=== PATIENT | female | born 1965 | race Caucasian/White ===

== ENCOUNTER 2017-04-01 21:57 | Observation (INO) | payer OTHER ==
[~2017-04-01] VITALS: Ht 165.1 cm; Wt 95.2 kg
[~2017-04-01 21:57] MED LIST: ALBUAER19 INH; ALLO100T PO; ASPI81TA28 PO; CHOL135C6 PO; GLIM2TAB2 PO; HYDR-5688 PO; LEVO25TA5 PO; METF1000 PO; SALM50AE2 INH
[2017-04-01] MEDS ORDERED: ASPIRIN 81 MG CHEW PO STA (22:24)
[2017-04-01] MEDS: NITROGLYCERIN 0.4 MG SL PER TAB CHARGE SL PRN ×3 (22:30→22:44)
--- NOTE | 2017-04-01 22:34 | EMERGENCY ROOM VISIT NOTE ---
History Report prepared by Mary: Raquel Osman Under the Supervision of: Dr. Willa Vázquez M.D. First contact with patient: 22:15 Chief Complaint: CHEST PAIN Stated Complaint: CHEST PAIN, PAIN IN L LOWER SHOULDER BLADE, NAUSEA History of Present Illness The patient is a 51 year old female who presents to the Emergency Room with complaints of persistent left sided chest pain that began this evening. She currently rates her discomfort as an 8/10 in severity. The patient reports that she developed chest pain that radiated into her left arm. She denies being a smoker. 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 She reports that she woke up today and began going about her normal routine and states that she noticed the pain. The patient states that the pain progressively worsened and tried resting , but states that the pain persisted. She denies any history of acid reflux but does report a history of diabetes. The patient states that she ate pasta and chicken for dinner. She states that she takes 81 mg of aspirin each morning. The patient reports a family history of heart disease, but denies any personal history of heart disease. She additionally associates nausea with her symptoms today, but denies any vomiting. The patient reports a normal bowel movement this morning. She states that she still has her gallbladder. The patient reports that her blood pressure typically runs 120/70 mmHg. Source of History: patient Onset: this evening Position: chest (left) Symptom Intensity: 8/10 Quality: other (radiating) Timing: other (persistent) Associated Symptoms: + nausea, No vomiting Note: Associated Symptoms: left arm pain Review of Systems See HPI for pertinent positives & negatives. A total of 10 systems reviewed and were otherwise negative. Past Medical & Surgical Medical Problems: (1) Diabetes (2) Hysterectomy (3) Kidney stone Family History Diabetes mellitus Heart disease Hypertension Social History Smoking Status: Never Smoker Smokeless Tobacco Use: No Alcohol Use: none Marital Status: Housing Status: lives with family Occupation Status: employed Current/Historical Medications Scheduled Allopurinol (Zyloprim), 100 MG PO QAM Aspirin (Aspirin Ec), 81 MG PO QAM Choline Fenofibrate (Trilipix), 135 MG PO QAM Fluticasone Propionate (Flovent Hfa), 2 PUFFS INH BID Glimepiride (Glimepiride), 4 MG PO BID Levothyroxine Sodium (Levothyroxine Sodium), 1 TAB PO QAM Metformin Hcl (Glucophage), 1,000 MG PO BID Scheduled PRN Albuterol Hfa (Ventolin Hfa), 2 PUFFS INH Q6H PRN for SOB/Wheezing Allergies Coded Allergies: Meperidine (Verified Allergy, Unknown, HIVES, 04/01/17) Penicillins (Verified Allergy, Unknown, UNKNOWN - "COULDN'T USE MY ARM AFTER SHOT", 04/01/17) Physical Exam Vital Signs Date Time Temp Pulse Resp B/P (MAP) Pulse Ox O2 Delivery O2 Flow Rate FiO2 04/01/17 23:00 79 18 120/76 98 Room Air 04/01/17 22:44 99 Room Air 04/01/17 22:20 90 04/01/17 22:00 36.9 64 18 148/88 97 Room Air Physical Exam Vital signs reviewed. General: Well-appearing female, in no significant distress. HEENT: No scleral icterus, PERRLA, neck supple. Atraumatic. Cardiovascular: Regular rate and rhythm, no extra sounds. Pulmonary: Clear to auscultation bilaterally, normal work of breathing. Abdomen:Obese soft, nontender, nondistended, positive bowel sounds. Musculoskeletal: Atraumatic, no peripheral edema. Neurologic: Patient awake alert and oriented x 3, full strength in all 4 extremities. Cranial nerves 2 through 12 grossly intact. Skin: Warm, dry, no rash Medical Decision & Procedures ER Provider Diagnostic Interpretation: X-ray results as stated below per interpretation by me and the radiologist: CHEST ONE VIEW PORTABLE CLINICAL HISTORY: Chest pain. COMPARISON STUDY: Chest radiograph June 24, 2013. FINDINGS: Slight elevation of the right hemidiaphragm is unchanged. There is no pneumothorax or pleural effusion. Cardiac size is normal. Mediastinal contours are normal. There is no evidence of pulmonary edema. There is no consolidation. IMPRESSION: No acute cardiopulmonary findings. Electronically signed by: Doron Gong M.D. 04/01/2017 10:48 PM Dictated Date/Time: 04/01/2017 10:47 PM Laboratory Results 04/01/17 22:40 Red Blood Count 4.21, Mean Corpuscular Volume 82.2, Mean Corpuscular Hemoglobin 26.8, Mean Corpuscular Hemoglobin Concent 32.7, Mean Platelet Volume 10.0, Neutrophils (%) (Auto) 51.1, Lymphocytes (%) (Auto) 38.8, Monocytes (%) (Auto) 5.9, Eosinophils (%) (Auto) 3.6, Basophils (%) (Auto) 0.4, Neutrophils # (Auto) 2.84, Lymphocytes # (Auto) 2.16, Monocytes # (Auto) 0.33, Eosinophils # (Auto) 0.20, Basophils # (Auto) 0.02 04/01/17 22:40 Test 04/01/17 22:40 04/01/17 22:49 White Blood Count 5.56 K/uL (4.8-10.8) Red Blood Count 4.21 M/uL (4.2-5.4) Hemoglobin 11.3 g/dL (12.0-16.0) Hematocrit 34.6 % (37-47) Mean Corpuscular Volume 82.2 fL (80-100) Mean Corpuscular Hemoglobin 26.8 pg (25-34) Mean Corpuscular Hemoglobin Concent 32.7 g/dl (32-36) Platelet Count 199 K/uL (130-400) Mean Platelet Volume 10.0 fL (7.4-10.4) Neutrophils (%) (Auto) 51.1 % Lymphocytes (%) (Auto) 38.8 % Monocytes (%) (Auto) 5.9 % Eosinophils (%) (Auto) 3.6 % Basophils (%) (Auto) 0.4 % Neutrophils # (Auto) 2.84 K/uL (1.4-6.5) Lymphocytes # (Auto) 2.16 K/uL (1.2-3.4) Monocytes # (Auto) 0.33 K/uL (0.11-0.59) Eosinophils # (Auto) 0.20 K/uL (0-0.5) Basophils # (Auto) 0.02 K/uL (0-0.2) RDW Standard Deviation 40.9 fL (36.4-46.3) RDW Coefficient of Variation 13.6 % (11.5-14.5) Immature Granulocyte % (Auto) 0.2 % Immature Granulocyte # (Auto) 0.01 K/uL (0.00-0.02) Anion Gap 13.0 mmol/L (3-11) Est Creatinine Clear Calc Drug Dose 68.1 ml/min Estimated GFR () 66.8 Estimated GFR (Non- 57.7 BUN/Creatinine Ratio 12.1 (10-20) Calcium Level 8.8 mg/dl (8.5-10.1) Total Bilirubin 0.2 mg/dl (0.2-1) Direct Bilirubin < 0.1 mg/dl (0-0.2) Aspartate Amino Transf (AST/SGOT) 24 U/L (15-37) Alanine Aminotransferase (ALT/SGPT) 36 U/L (12-78) Alkaline Phosphatase 66 U/L (45-117) Total Creatine Kinase 49 U/L (26-192) Creatine Kinase MB 0.8 ng/ml (0.5-3.6) Creatine Kinase MB Ratio 1.6 (0-3.0) Total Protein 6.8 gm/dl (6.4-8.2) Albumin 3.3 gm/dl (3.4-5.0) Beta-Hydroxybutyric Acid 1.26 mg/dL (0.2-2.81) Bedside Troponin I < 0.030 ng/ml (0-0.045) Laboratory results per my review. Medications Administered Medications (Trade) Dose Ordered Sig/Berhane Route Start Time Stop Time Status Last Admin Dose Admin Aspirin (Aspirin Chew) 243 mg NOW STAT PO 04/01/17 22:24 04/01/17 22:26 DC 04/01/17 22:30 243 MG Nitroglycerin (Nitrostat Tab) 0.4 mg PRN PRN SL 04/01/17 22:30 05/01/17 22:29 04/01/17 22:44 0.4 MG Insulin Human Regular (novoLIN-R U-100 PER UNIT) 10 units NOW STAT SC 04/01/17 23:24 04/01/17 23:25 DC 04/02/17 00:20 10 UNITS ECG Indication: chest pain Rate (beats per minute): 78 Rhythm: normal sinus Findings: no acute ischemic change, no ectopy ED Course 3: Past medical records reviewed. The patient was evaluated in room B12B. A complete history and physical examination was performed. 4: Ordered Aspirin 243 mg PO. 0: Ordered Nitroglycerin 0.4 mg SL. 4: Ordered Insulin Human Regular 10 units SC 2326: I reevaluated the patient and she is resting comfortably. I discussed the exam findings with her and I discussed the treatment plan. She verbalized complete understanding and agreement. She is going to be evaluated for further treatment. []: I discussed the patients case with Valeria Velazquez. He will evaluate the patient for further treatment. Medical Decision Differential diagnoses includes acute coronary syndrome, pulmonary embolus, aortic dissection, musculoskeletal pain, pneumonia, pleural effusion, pneumothorax, gastritis, peptic ulcer disease. Medication Reconciliation: I attest that I have personally reviewed the patient' s current medication list. Blood Pressure Screening: Patient was found to have normal blood pressure on screening and does not require follow-up. This patient was evaluated and appeared to be in no significant distress. IV access was obtained and laboratory work was drawn. 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 EKG reveals no evidence of acute ischemia. Laboratory work reveals negative cardiac enzymes. The patient was feeling improved after aspirin and nitroglycerin. Patient's blood sugar is found to be 374. She was given 10 units of subcutaneous regular insulin. Given her family history of heart disease, her uncontrolled diabetes and chest pain, she will be evaluated by the hospitalist service for further management. She and her are aware of the plan and agree. Consults Time Called: [id number] Consulting Physician: Valeria Velazquez Returned Call: [phone] I discussed the patients case with Valeria Velazquez. He will evaluate the patient for further treatment. Impression Primary Impression: Chest pain radiating to upper extremity Additional Impression: Hyperglycemia Scribe Attestation The scribe's documentation has been prepared under my direction and personally reviewed by me in its entirety. I confirm that the note above accurately reflects all work, treatment, procedures, and medical decision making performed by me. Departure Information Dispostion Being Evaluated By Hospitalist Referrals Sarbjit Carballo M.D. (PCP) Problem Qualifiers
--- NOTE | 2017-04-01 22:49 | DIAGNOSTIC IMAGING REPORT ---
CHEST ONE VIEW PORTABLE CLINICAL HISTORY: Chest pain. COMPARISON STUDY: Chest radiograph June 24, 2013. FINDINGS: Slight elevation of the right hemidiaphragm is unchanged. There is no pneumothorax or pleural effusion. Cardiac size is normal. Mediastinal contours are normal. There is no evidence of pulmonary edema. There is no consolidation. IMPRESSION: No acute cardiopulmonary findings. Electronically signed by: Doron Gong M.D. 04/01/2017 10:48 PM Dictated Date/Time: 04/01/2017 10:47 PM
[2017-04-01 22:56] LABS: BASO % 0.4 %; BASO ABS # 0.02 K/uL (0-0.2); COMPLETE YES; EOS % 3.6 %; HEMATOCRIT 34.6 % (37-47); IG% 0.2 %; LYMPH % 38.8 %; LYMPH ABS # 2.16 K/uL (1.2-3.4); MEAN CELL VOLUME 82.2 fL (80-100); MEAN CORPUSCULAR HEMOGLOBIN 26.8 pg (25-34); MEAN CORPUSCULAR HGB CONC 32.7 g/dl (32-36); MONO % 5.9 %; NEUT % 51.1 %; PLATELET COUNT 199 K/uL (130-400); RED BLOOD COUNT 4.21 M/uL (4.2-5.4); WHITE BLOOD COUNT 5.56 K/uL (4.8-10.8)
[2017-04-01] MEDS ORDERED: FLVHFA110 INH (23:07)
[2017-04-01] MEDS ORDERED: VNTHFA/IN INH (23:07)
[2017-04-01 23:12] LABS: CALCIUM 8.8 mg/dl (8.5-10.1)
[2017-04-01 23:18] LABS: ALKALINE PHOSPHATASE 66 U/L (45-117); ALT/SGPT 36 U/L (12-78); AST/SGOT 24 U/L (15-37); BLOOD UREA NITROGEN 13 mg/dl (7-18); BUN/CREATININE RATIO 12.1 (10-20); CARBON DIOXIDE 24 mmol/L (21-32); CHLORIDE 104 mmol/L (98-107); CKMB/CK RATIO 1.6 (0-3.0); GLUCOSE 374 mg/dl (70-99); POTASSIUM 3.8 mmol/L (3.5-5.1); SODIUM 141 mmol/L (136-145)
[2017-04-01] MEDS ORDERED: NovoLIN-R INSULIN PER UNIT CHARGE SC STA (23:24)
[2017-04-01 23:30] LABS: BETA-HYDROXYBUTYRATE 1.26 mg/dL (0.2-2.81)
[2017-04-02] VITALS (10 sets, daily range): BP systolic 115–135; BP diastolic 70–83; PULSE 59–89; TEMP 36.6–37.1; O2SAT 93–98; Ht 165.1 cm; Wt 95.2 kg
[2017-04-02] MEDS ORDERED: GLUCOSE 10 TABS/TUBE PO PRN (00:30)
[2017-04-02] MEDS ORDERED: POLYETHYLENE (MIRALAX) 17 GM PACK PO PRN (00:30)
[2017-04-02] MEDS ORDERED: NITROGLYCERIN 0.4 MG SL PER TAB CHARGE SL PRN (00:30)
[2017-04-02] MEDS ORDERED: ONDANSETRON INJ 2 MG/ML 2 ML VIAL IV PRN (00:30)
[2017-04-02] MEDS ORDERED: DEXTROSE 50% 50 ML SYR IV PRN (00:30)
[2017-04-02] MEDS ORDERED: ALBUTEROL HFA 8 GM INHALER INH PRN (00:30)
[2017-04-02] MEDS ORDERED: ALUMINUM/MAGNESIUM/SIMETH (MAALOX MAX) 30 ML UDC PO PRN (00:30)
[2017-04-02] MEDS ORDERED: GLUCOSE 40% GEL 15 GM TUBE PO PRN (00:30)
[2017-04-02] MEDS ORDERED: ACETAMINOPHEN 325 MG TAB PO PRN (00:30)
[2017-04-02] MEDS ORDERED: GLUCAGON FOR INJ 1 MG VIAL SQ PRN (00:30)
[2017-04-02] MEDS ORDERED: MAGNESIUM HYDROXIDE SUSP 30 ML UDC PO PRN (00:30)
[2017-04-02] MEDS ORDERED: IV FLUIDS COMPLETED PRN (00:45)
[2017-04-02] MEDS: SODIUM CHLORIDE 0.9% 1000ML 1,000 ML IV SCH ×3 (02:13→22:01)
--- NOTE | 2017-04-02 04:26 | History and Physical ---
History & Physical Date & Time of Service: Apr 02, 2017 at 04:04 Chief Complaint: Chest Pain Radiating To Upper Extremity, Primary Care Physician: Sarbjit Carballo M.D. History of Present Illness Source: patient, family, clinic records, hospital records This is a 51 year old female with a PMH of significantly uncontrolled DM2, HTN, HLD, hypothyroidism presents with L sided chest pain radiating to her L shoulder and between her shoulder blades. States that the pain began in the afternoon of 04/01 - and was severe enough that it worried her to come to the ER. Denies shortness of breath, no fevers/chills, no nausea/vomiting/diarrhea; has had this before and this has gone away on its own. This time, the pain persisted. Currently, pain free after nitro. Past Medical/Surgical History Medical Problems: (1) Diabetes Status: Chronic (2) Hysterectomy Status: Resolved (3) Kidney stone Status: Resolved Family History Diabetes mellitus Heart disease Hypertension Social History Smoking Status: Never Smoker Smokeless Tobacco Use: No Marital Status: Housing status: lives with family Occupational Status: employed Multi-Drug Resistant Organisms History of MDRO: No Allergies Coded Allergies: Meperidine (Verified Allergy, Unknown, HIVES, 04/01/17) Penicillins (Verified Allergy, Unknown, UNKNOWN - "COULDN'T USE MY ARM AFTER SHOT", 04/01/17) Home Medications Scheduled Allopurinol (Zyloprim), 100 MG PO QAM Aspirin (Aspirin Ec), 81 MG PO QAM Choline Fenofibrate (Trilipix), 135 MG PO QAM Fluticasone Propionate (Flovent Hfa), 2 PUFFS INH BID Glimepiride (Glimepiride), 4 MG PO BID Levothyroxine Sodium (Levothyroxine Sodium), 1 TAB PO QAM Metformin Hcl (Glucophage), 1,000 MG PO BID Scheduled PRN Albuterol Hfa (Ventolin Hfa), 2 PUFFS INH Q6H PRN for SOB/Wheezing Review of Systems Constitutional: No fever, No chills Respiratory: No cough, No sputum, No wheezing, No shortness of breath, No dyspnea on exertion Cardiovascular: + chest pain, No orthopnea, No edema, No palpitations Abdomen: No pain, No nausea, No vomiting, No diarrhea, No constipation, No GI bleeding Musculoskeletal: No joint pain, No muscle pain Genitourinary - Female: No dysuria, No urinary frequency, No urinary urgency Neurologic: No weakness, No numbness/tingling, No vertigo, No balance problems Psychiatric: No depression symptoms, No anxiety, No insomnia Endocrine: No fatigue Hematologic / Lymphatic: No abnormal bleeding/bruising Integumentary: No rash Allergic / Immunologic: No environmental allergies, No seasonal allergies Physical Exam Vital Signs Date Time Temp Pulse Resp B/P (MAP) Pulse Ox O2 Delivery O2 Flow Rate FiO2 04/02/17 02:12 36.7 66 20 129/78 (95) 97 Room Air 04/02/17 01:45 36.7 66 20 129/78 97 Room Air 04/02/17 01:19 74 118/67 97 Room Air 04/02/17 00:32 73 18 129/78 96 Room Air 04/01/17 23:00 79 18 120/76 98 Room Air 04/01/17 22:44 99 Room Air 04/01/17 22:20 90 04/01/17 22:00 36.9 64 18 148/88 97 Room Air General Appearance: no apparent distress, + obese Head: normocephalic, atraumatic Eyes: normal inspection ENT: hearing grossly normal Neck: supple Respiratory/Chest: chest non-tender, lungs clear, normal breath sounds, no respiratory distress, no accessory muscle use Cardiovascular: regular rate, rhythm, no edema, no gallop, no JVD, no murmur, normal peripheral pulses Abdomen/GI: normal bowel sounds, non tender, soft Back: no CVA tenderness, no muscle spasm Extremities/Musculoskelatal: normal capillary refill, no pedal edema Neurologic/Psych: no motor/sensory deficits, alert, normal reflexes Skin: normal color Lymphatic: no adenopathy Diagnostics Laboratory Results Results Past 24 Hours Test 04/01/17 22:40 04/01/17 22:49 04/02/17 01:04 04/02/17 03:47 Range/Units White Blood Count 5.56 4.8-10.8 K/uL Red Blood Count 4.21 4.2-5.4 M/uL Hemoglobin 11.3 12.0-16.0 g/dL Hematocrit 34.6 37-47 % Mean Corpuscular Volume 82.2 80-100 fL Mean Corpuscular Hemoglobin 26.8 25-34 pg Mean Corpuscular Hemoglobin Concent 32.7 32-36 g/dl Platelet Count 199 130-400 K/uL Mean Platelet Volume 10.0 7.4-10.4 fL Neutrophils (%) (Auto) 51.1 % Lymphocytes (%) (Auto) 38.8 % Monocytes (%) (Auto) 5.9 % Eosinophils (%) (Auto) 3.6 % Basophils (%) (Auto) 0.4 % Neutrophils # (Auto) 2.84 1.4-6.5 K/uL Lymphocytes # (Auto) 2.16 1.2-3.4 K/uL Monocytes # (Auto) 0.33 0.11-0.59 K/uL Eosinophils # (Auto) 0.20 0-0.5 K/uL Basophils # (Auto) 0.02 0-0.2 K/uL RDW Standard Deviation 40.9 36.4-46.3 fL RDW Coefficient of Variation 13.6 11.5-14.5 % Immature Granulocyte % (Auto) 0.2 % Immature Granulocyte # (Auto) 0.01 0.00-0.02 K/uL Sodium Level 141 136-145 mmol/L Potassium Level 3.8 3.5-5.1 mmol/L Chloride Level 104 98-107 mmol/L Carbon Dioxide Level 24 21-32 mmol/L Anion Gap 13.0 3-11 mmol/L Blood Urea Nitrogen 13 7-18 mg/dl Creatinine 1.10 0.60-1.20 mg/dl Est Creatinine Clear Calc Drug Dose 68.1 ml/min Estimated GFR () 66.8 Estimated GFR (Non- 57.7 BUN/Creatinine Ratio 12.1 10-20 Random Glucose 374 70-99 mg/dl Calcium Level 8.8 8.5-10.1 mg/dl Total Bilirubin 0.2 0.2-1 mg/dl Direct Bilirubin < 0.1 0-0.2 mg/dl Aspartate Amino Transf (AST/SGOT) 24 15-37 U/L Alanine Aminotransferase (ALT/SGPT) 36 12-78 U/L Alkaline Phosphatase 66 45-117 U/L Total Creatine Kinase 49 26-192 U/L Creatine Kinase MB 0.8 0.5-3.6 ng/ml Creatine Kinase MB Ratio 1.6 0-3.0 Total Protein 6.8 6.4-8.2 gm/dl Albumin 3.3 3.4-5.0 gm/dl Beta-Hydroxybutyric Acid 1.26 0.2-2.81 mg/dL Bedside Troponin I < 0.030 0-0.045 ng/ml Bedside Glucose 298 70-90 mg/dl CXR normal Normal EKG Impression Assessment and Plan This is a 51 year old female with a PMH of significantly uncontrolled DM2, HTN, HLD, hypothyroidism presents with L sided chest pain Chest Pain r/o ACS risk factors: uncontrolled DM2 EKG = NSR initial cardiac enzyme negative trend enzymes, repeat EKG in AM, echo monitor in tele nitro PRN for pain aspirin, statin cardiology consultation for possible stress testing Uncontrolled DM2 last Ha1c > 12% patient has not started insulin therapy and is only on oral medications BSGs > 300 on presentation should be discharged on Lantus or Levemir at the very least - will need convincing continue statin started on low dose lisinopril - should be discharged on an JESUS-I Hypothyroidism continue Synthroid DVT ppx subq heparin FULL CODE Advanced Directives Existing Living Will: No Existing Power of Numberer And Wirer: No VTE Prophylaxis VTE Risk Assessment Done? Y/N: Yes Risk Level: Moderate
[2017-04-02] MEDS: LEVOTHYROXINE 25 MCG TAB PO SCH (06:20)
[2017-04-02 06:55] LABS: HEMATOCRIT 34.3 % (37-47); MEAN CELL VOLUME 83.7 fL (80-100); MEAN CORPUSCULAR HEMOGLOBIN 27.1 pg (25-34); MEAN CORPUSCULAR HGB CONC 32.4 g/dl (32-36); MEAN PLATELET VOLUME 9.7 fL (7.4-10.4); PLATELET COUNT 180 K/uL (130-400); WHITE BLOOD COUNT 6.05 K/uL (4.8-10.8)
[2017-04-02 07:29] LABS: BLOOD UREA NITROGEN 16 mg/dl (7-18); BUN/CREATININE RATIO 19.6 (10-20); CALCIUM 8.4 mg/dl (8.5-10.1); CARBON DIOXIDE 27 mmol/L (21-32); CHLORIDE 109 mmol/L (98-107); CREATININE 0.82 mg/dl (0.60-1.20); GLUCOSE 134 mg/dl (70-99); POTASSIUM 3.8 mmol/L (3.5-5.1); SODIUM 145 mmol/L (136-145)
[2017-04-02 07:34] LABS: CKMB/CK RATIO 1.8 (0-3.0)
[2017-04-02 08:01] LABS: ESTIMATED AVERAGE GLUCOSE 255 mg/dl; HA1C FLAG Normal (Normal)
[2017-04-02] MEDS: INSULIN ASPART 100 UNITS/ML 3 ML PEN SC SCH ×4 (08:06→20:45)
[2017-04-02] MEDS: ASPIRIN 81 MG ECTAB PO SCH (08:08)
[2017-04-02] MEDS: ATORVASTATIN 40 MG TAB PO SCH (08:08)
[2017-04-02] MEDS: FLUTICASONE HFA 110MCG INHALER INH SCH ×2 (08:08→20:42)
[2017-04-02] MEDS: LISINOPRIL 2.5 MG TAB PO SCH (08:12)
[2017-04-02] MEDS: INSULIN GLARGINE SOLOSTAR 100 UNITS/ML 3 ML PEN SC SCH ×2 (08:16→20:44)
[2017-04-02] MEDS ORDERED: PHARMACY GLYCEMIC MGMT CONSULT PRN (09:16)
[2017-04-02 09:44] LABS: PARTIAL THROMBOPLASTIN RATIO 0.9
--- NOTE | 2017-04-02 09:44 | Pharmacy Progress Note ---
Glycemic Control Intl Consult Date of Service Apr 02, 2017. Scope Glycemic Pharmacist consulted by Dr Avalos on 04/02/17 for glycemic control and to write orders per [facility] inpatient glycemic control protocol Objective Weight (Kilograms): 94.200 Accuchecks BSG (last 24hrs): Test 04/01/17 22:40 04/02/17 01:04 04/02/17 03:47 04/02/17 06:38 Random Glucose 374 mg/dl (70-99) 134 mg/dl (70-99) Bedside Glucose 298 mg/dl (70-90) 212 mg/dl (70-90) Test 04/02/17 07:27 Bedside Glucose 142 mg/dl (70-90) HbA1c Test 04/02/17 06:38 Hemoglobin A1c 10.5 % (4.5-5.6) H Recent Pertinent Medications Outpatient Anti-diabetic Regimen: * Amaryl 4mg PO BIDM * Metformin 1,000mg PO BIDM The patient is currently receiving: * Basal insulin: Lantus 10 units every 12 hours * Correctional Insulin: Novolog Correction per scale ACHS Goal Range: Low 140 mg/dL - High 180 mg/dL Correction Factor: 25 mg/dL/unit * Prandial insulin: Per carb ratio of 1 unit per 15 grams CHO consumed * Oral Agents: on hold for admission Assessment & Plan ASSESSMENT: * 51yo poorly controlled T2DM female. A1c is significantly elevated above goal based on patient age and co-morbidities. Goal A1c is below 7% * Pt NPO, oral antidiabetic agents on hold for admission. Provider initiated SQ basal bolus insulin regimen. * Current basal orders seem appropriated based on weight calculations, low stress, and NPO * Current bolus insulin parameters seem conservative based on weight calculations. Pt received 10 units of Regular insulin SQ for elevated GLU of 347. This correlates to CF of ~ 25 which brought BSG down nicely. Concern that CR of 15 may be inadequate once diet advanced. * ADA & AACE recommend a goal blood sugar range 140-180 mg/dl for the majority of critically ill & non-critically ill patients. However, more stringent targets may be selected in individual cases. Will lower goal range slightly based on age/co-morbidities. Keep it a little elevated since A1c is so high - pt may feel symptoms of hypo at otherwise normal BSGs. PLAN FOR INPATIENT GLYCEMIC CONTROL: * Hold outpatient oral diabetes medications * Basal insulin * Continue Lantus 10 units SQ BID * Bolus Insulin * NovoLog per scale ACHS or Q6hrs while NPO * Goal Range: Low 120 mg/dL - High 160 mg/dL * Correction Factor: 25 mg/dL/unit * Nutritional / Prandial insulin per carb ratio of 1 unit per 10 grams CHO consumed LOOKING AHEAD TO DISCHARGE: * A1c = 10.5 % on 04/02/17 * Pt specific goal A1c is BELOW 7% * A1c goal should be individualized based on risk of hypo/drug AE, disease duration, life expectancy, relevant co-morbidities, established vascular complication, patient attitude and expected treatment efforts, resources and support system. * A1c is greater than or equal to 10% --> pt will need metformin + combination injectable therapy (basal insulin + rapid acting insulin OR GLP1-RA) * Metformin has a long-standing evidence base for efficacy and safety, is inexpensive, and may reduce risk of cardiovascular events. 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 These recommendations are appropriate for inpatient admission only. Plan of care upon discharge will need to be reassessed to avoid potential outpatient hypo/hyperglycemia. Thank you.
--- NOTE | 2017-04-02 10:09 | Cardiology Consultation ---
Cardiology Consultation Date of Consultation: Apr 02, 2017 Requesting Physician: Tommy Attending Parts Delivery Driver: Sowmya (Maco Waters PA-C) History of Present Illness History of Present Illness: Mrs. Byers is a 51 year old female who is being seen at the request of Dr. Sanders. Reason for consultation is chest pain. Mrs. Byers presented to the [facility] ER on 04/01/2017 due to chest discomfort. She notes working nights, sleeping during the day. Yesterday she awoke around 5 PM and didn't feel right. She went back to bed, awaking around 7:30 PM with an 8 out of 10 squeezing substernal chest discomfort associated with left shoulder pain, left arm discomfort, shortness of breath, nausea, and feeling "hot then cold." She notes eating dinner then laying on the sofa. Notes getting a shower and feeling dizzy. She notes no prior cardiac history and denies having previously had chest pain or discomfort. Eventually her brought her to the ER where she was seen by Dr. Willa Vázquez M.D. Systolic blood pressure was elevated per patient, into the 170' s. EKG showed no acute changes. Initial cardiac enzymes were negative. Chest x- ray showed no acute cardiopulmonary findings. The patient notes receiving three sublingual nitroglycerin with gradual improvement in the discomfort after each nitroglycerine tablet. She has been chest pain free since admission. (Maco Waters PA-C) History Past Medical and Surgical History Uncontrolled type II diabetes mellitus Hypertension Dyslipidemia Obesity Fatty liver disease Hypothyroidism Asthma Gouty arthropathy DJD of the lumbar spine Nephrolithiasis, obstructing stone with right hydronephrosis in 2012. Ovarian cyst Ulva abscess Hyperkalemia with lisinopril Right rotator cuff repair Partial hysterectomy in 2001 Breast reduction Removal of a lipoma as a teenager Family History: Notable for diabetes mellitus in multiple family members. Father 's history is unknown. Mother with "complications from diabetes" at the age of 49. She had CHF and CAD. She has two brothers and one sister without cardiac issues. Social History: Nonsmoker. No smokeless tobacco. No alcohol. No illegal drug use. . Three children, four grandchildren, all without cardiac histories. 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 (Maco Waters PA-C) Review Of Systems General: Sore throat last week, cough productive of clear/cloudy mucous x 1 week. Denies fever or rigors. Head: No headache. No head trauma. Cardiovascular: See above. Denies prior cardiac history including CAD, CHF, arrhythmias, heart murmur, rheumatic fever, scarlet fever, or family history of sudden cardiac . WILLIAM. No orthopnea, PND, or edema. No syncope. Pulmonary: Asthma. No hemoptysis. Gastrointestinal: See above. Fatty liver. Skin: No rash. Musculoskeletal: See above. Neurological: Denies history of TIA, CVA, or seizures Complete review of systems is as stated above, negative, or noncontributory. (Maco Waters PA-C) Allergies Coded Allergies: Meperidine (Verified Allergy, Unknown, HIVES, 04/01/17) Penicillins (Verified Allergy, Unknown, UNKNOWN - "COULDN'T USE MY ARM AFTER SHOT", 04/01/17) Medications Reported Home Medications Medications Dose Route/Sig Max Daily Dose Days Date Category Flovent Hfa (Fluticasone Propionate) 120 Puffs/76975 Mcg Aero 2 Puffs INH BID 30 04/01/17 Reported Ventolin Hfa (Albuterol) 200 Puffs/84321 Mcg Aers 2 Puffs INH Q6H PRN 04/01/17 Reported Levothyroxine Sodium 25 Mcg Tab 1 Tab PO QAM 03/06/16 Reported Zyloprim (Allopurinol) 100 Mg Tab 100 Mg PO QAM 03/06/16 Reported Aspirin Ec (Aspirin) 81 Mg Tab 81 Mg PO QAM 03/06/16 Reported Glucophage (Metformin Hcl) 1,000 Mg Tab 1,000 Mg PO BID 06/21/13 Reported Glimepiride 2 Mg Tab 4 Mg PO BID 06/21/13 Reported Trilipix (Choline Fenofibrate) 135 Mg Cap 135 Mg PO QAM 06/21/13 Reported (Maco Waters PA-C) Physical Exam Vital Signs (Last 8hrs): Last 8 Hrs Date Time Temp Pulse Resp B/P (MAP) Pulse Ox O2 Delivery O2 Flow Rate FiO2 04/02/17 08:00 98 Room Air 04/02/17 07:17 36.8 77 16 119/75 (90) 98 04/02/17 04:18 36.7 67 20 116/73 (87) 96 Room Air 04/02/17 02:12 36.7 66 20 129/78 (95) 97 Room Air General Appearance: Alert and Oriented x3. NAD. Elevated BMI. Head: Normocephalic Atraumatic. Eyes: PER, EOMI, conjunctiva and sclera clear Neck: Supple. No carotid bruits. No JVD. Respiratory: Breath sounds clear to auscultation. No w/r/r. Cardiovascular: Somewhat distant heart sounds. RRR, 66 bpm. No murmurs, rubs, gallops. Abdomen:+BS. Soft. Nontender. Extremities: No edema. No clubbing. No cyanosis. Distal pulses 2/4 bilaterally. Neuro: No focal deficits. Psychiatric: Normal affect. (Maco Waters, KENDRA) Data Last 24 Hours Test 04/01/17 22:40 04/01/17 22:49 04/02/17 01:04 04/02/17 03:47 White Blood Count 5.56 K/uL Red Blood Count 4.21 M/uL Hemoglobin 11.3 g/dL Hematocrit 34.6 % Mean Corpuscular Volume 82.2 fL Mean Corpuscular Hemoglobin 26.8 pg Mean Corpuscular Hemoglobin Concent 32.7 g/dl Platelet Count 199 K/uL Mean Platelet Volume 10.0 fL Neutrophils (%) (Auto) 51.1 % Lymphocytes (%) (Auto) 38.8 % Monocytes (%) (Auto) 5.9 % Eosinophils (%) (Auto) 3.6 % Basophils (%) (Auto) 0.4 % Neutrophils # (Auto) 2.84 K/uL Lymphocytes # (Auto) 2.16 K/uL Monocytes # (Auto) 0.33 K/uL Eosinophils # (Auto) 0.20 K/uL Basophils # (Auto) 0.02 K/uL RDW Standard Deviation 40.9 fL RDW Coefficient of Variation 13.6 % Immature Granulocyte % (Auto) 0.2 % Immature Granulocyte # (Auto) 0.01 K/uL Sodium Level 141 mmol/L Potassium Level 3.8 mmol/L Chloride Level 104 mmol/L Carbon Dioxide Level 24 mmol/L Anion Gap 13.0 mmol/L Blood Urea Nitrogen 13 mg/dl Creatinine 1.10 mg/dl Est Creatinine Clear Calc Drug Dose 68.1 ml/min Estimated GFR () 66.8 Estimated GFR (Non- 57.7 BUN/Creatinine Ratio 12.1 Random Glucose 374 mg/dl Calcium Level 8.8 mg/dl Total Bilirubin 0.2 mg/dl Direct Bilirubin < 0.1 mg/dl Aspartate Amino Transf (AST/SGOT) 24 U/L Alanine Aminotransferase (ALT/SGPT) 36 U/L Alkaline Phosphatase 66 U/L Total Creatine Kinase 49 U/L Creatine Kinase MB 0.8 ng/ml Creatine Kinase MB Ratio 1.6 Total Protein 6.8 gm/dl Albumin 3.3 gm/dl Beta-Hydroxybutyric Acid 1.26 mg/dL Bedside Troponin I < 0.030 ng/ml Bedside Glucose 298 mg/dl 212 mg/dl Test 04/02/17 06:38 04/02/17 07:27 04/02/17 09:20 White Blood Count 6.05 K/uL Red Blood Count 4.10 M/uL Hemoglobin 11.1 g/dL Hematocrit 34.3 % Mean Corpuscular Volume 83.7 fL Mean Corpuscular Hemoglobin 27.1 pg Mean Corpuscular Hemoglobin Concent 32.4 g/dl RDW Standard Deviation 41.7 fL RDW Coefficient of Variation 13.8 % Platelet Count 180 K/uL Mean Platelet Volume 9.7 fL Sodium Level 145 mmol/L Potassium Level 3.8 mmol/L Chloride Level 109 mmol/L Carbon Dioxide Level 27 mmol/L Anion Gap 9.0 mmol/L Blood Urea Nitrogen 16 mg/dl Creatinine 0.82 mg/dl Est Creatinine Clear Calc Drug Dose 91.1 ml/min Estimated GFR () 95.4 Estimated GFR (Non- 82.3 BUN/Creatinine Ratio 19.6 Random Glucose 134 mg/dl Estimated Average Glucose 255 mg/dl Hemoglobin A1c 10.5 % Calcium Level 8.4 mg/dl Total Creatine Kinase 33 U/L Creatine Kinase MB 0.6 ng/ml Creatine Kinase MB Ratio 1.8 Troponin I < 0.015 ng/ml Bedside Glucose 142 mg/dl Prothrombin Time 11.0 SECONDS Prothromb Time International Ratio 1.0 Activated Partial Thromboplast Time 23.2 SECONDS Partial Thromboplastin Ratio 0.9 CXR: See above. EKG dated and timed 01-APR-2017 @ 22:10:08: Normal sinus rhythm at 78 bpm. Telemetry: Sinus/sinus tachycardia. No atrial or ventricular arrhythmias. No pauses. TTE: Pending. (Maco Waters PA-C) Assessment & Plan Chest pain. Atypical though with concerning characteristics and multiple cardiac risk factors (uncontrolled diabetes mellitus, hypertension, dyslipidemia, obesity, and family history). Initial EKG and cardiac enzymes negative. Repeat EKG and cardiac enzymes; await resting echocardiography. If OK -> stress echocardiography. Continue ASA and statin Risk factor and life style modification Hypertension Recommend losartan over lisinopril given past documented hyperkalemia with use of lisinopril. Dyslipidemia Continue statin Uncontrolled type II diabetes mellitus Noncompliant. As per hospitalist and PCP. (Maco Waters PA-C) Cardiology Attending Physician: Patient seen and examined at the bedside. No recurrent chest pain overnight. No dysrhythmia on telemetry. Troponins undetectable. Reports mild WILLIAM chronically. No exertional chest discomfort prior to admission. PE: VSS. GEN: NAD, AAOx3. Heart: Regular, Normal S1S2, No murmur. Lung: clear B/ L, No R/R/W. Ext: No edema. A/P: Agree with above PA-C, history, physical exam, assessment and plan. Cardiac risk factors and chest discomfort with atypical features. Will perform exercise stress echocardiography for further risk stratification. Eduin Deng DO, FACC Addendum: Exercise stress echo negative for inducible ischemia. Recommend medical management. No further cardiac testing at this time. (Carlo Deng DO)
[2017-04-02] MEDS: HEPARIN SOD 5000 UNIT/0.5 ML CARP SQ SCH ×2 (13:23→22:00)
[2017-04-02] MEDS ORDERED: COUGH DROP (SUGAR FREE) LOZ 24 LOZ/1 BOX ONE (13:25)
[2017-04-02] MEDS ORDERED: NURSING DECISION MEDICATION ORDER SCH (13:30)
[2017-04-02] MEDS ORDERED: COUGH DROP (SUGAR FREE) LOZ 24 LOZ/1 BOX PO PRN (13:45)
--- NOTE | 2017-04-02 15:22 | Progress Note ---
Internal Med Progress Note Date of Service: Apr 02, 2017. Provider Documentation: SUBJECTIVE: The patient was seen and examined Admitted with exertional chest pain Noted to have very high HbA1c Has been noncompliant OBJECTIVE: Vital Signs-as noted below Exam: General-No distress at rest Eyes-normal ENT-normal Neck-supple Lungs-clear to ausucltate bilaterally Heart-Regular,no murmur Abdomen-Benign,no masses,bowel sound present Extremities-Trace edema bilaterally Neuro-AAOx3 No focal neuro deficit Lab data as noted below. ASSESSMENT & PLAN: Exertional Chest Pain R/O ACS Risk factors: uncontrolled DM2 and Hyperlipidemia EKG = NSR and Serial Beulah are unremarkable Appreciate Cardiology input Negative Stress ECHO-medical Management Aspirin, statin Uncontrolled DM2 Last Ha1c > 12% Patient has not started insulin therapy and is only on oral medications BSGs > 300 on presentation SSI for now Pharmacy consult for Glycemic control Hypothyroidism Continue Synthroid DVT ppx subq heparin FULL CODE DISPOSITION Likely home in AM Vital Signs: Date Time Temp Pulse Resp B/P (MAP) Pulse Ox O2 Delivery O2 Flow Rate FiO2 04/02/17 14:55 36.6 59 18 119/70 (86) 93 04/02/17 12:06 37.1 89 18 127/83 (98) 96 04/02/17 12:00 96 Room Air 04/02/17 08:00 98 Room Air 04/02/17 07:17 36.8 77 16 119/75 (90) 98 04/02/17 04:18 36.7 67 20 116/73 (87) 96 Room Air 04/02/17 02:12 36.7 66 20 129/78 (95) 97 Room Air 04/02/17 01:45 36.7 66 20 129/78 97 Room Air 04/02/17 01:19 74 118/67 97 Room Air 04/02/17 00:32 73 18 129/78 96 Room Air 04/01/17 23:00 79 18 120/76 98 Room Air 04/01/17 22:44 99 Room Air 04/01/17 22:20 90 04/01/17 22:00 36.9 64 18 148/88 97 Room Air Lab Results: Results Past 24 Hours Test 04/01/17 22:40 04/01/17 22:49 04/02/17 01:04 04/02/17 03:47 Range/Units White Blood Count 5.56 4.8-10.8 K/uL Red Blood Count 4.21 4.2-5.4 M/uL Hemoglobin 11.3 12.0-16.0 g/dL Hematocrit 34.6 37-47 % Mean Corpuscular Volume 82.2 80-100 fL Mean Corpuscular Hemoglobin 26.8 25-34 pg Mean Corpuscular Hemoglobin Concent 32.7 32-36 g/dl Platelet Count 199 130-400 K/uL Mean Platelet Volume 10.0 7.4-10.4 fL Neutrophils (%) (Auto) 51.1 % Lymphocytes (%) (Auto) 38.8 % Monocytes (%) (Auto) 5.9 % Eosinophils (%) (Auto) 3.6 % Basophils (%) (Auto) 0.4 % Neutrophils # (Auto) 2.84 1.4-6.5 K/uL Lymphocytes # (Auto) 2.16 1.2-3.4 K/uL Monocytes # (Auto) 0.33 0.11-0.59 K/uL Eosinophils # (Auto) 0.20 0-0.5 K/uL Basophils # (Auto) 0.02 0-0.2 K/uL RDW Standard Deviation 40.9 36.4-46.3 fL RDW Coefficient of Variation 13.6 11.5-14.5 % Immature Granulocyte % (Auto) 0.2 % Immature Granulocyte # (Auto) 0.01 0.00-0.02 K/uL Sodium Level 141 136-145 mmol/L Potassium Level 3.8 3.5-5.1 mmol/L Chloride Level 104 98-107 mmol/L Carbon Dioxide Level 24 21-32 mmol/L Anion Gap 13.0 3-11 mmol/L Blood Urea Nitrogen 13 7-18 mg/dl Creatinine 1.10 0.60-1.20 mg/dl Est Creatinine Clear Calc Drug Dose 68.1 ml/min Estimated GFR () 66.8 Estimated GFR (Non- 57.7 BUN/Creatinine Ratio 12.1 10-20 Random Glucose 374 70-99 mg/dl Calcium Level 8.8 8.5-10.1 mg/dl Total Bilirubin 0.2 0.2-1 mg/dl Direct Bilirubin < 0.1 0-0.2 mg/dl Aspartate Amino Transf (AST/SGOT) 24 15-37 U/L Alanine Aminotransferase (ALT/SGPT) 36 12-78 U/L Alkaline Phosphatase 66 45-117 U/L Total Creatine Kinase 49 26-192 U/L Creatine Kinase MB 0.8 0.5-3.6 ng/ml Creatine Kinase MB Ratio 1.6 0-3.0 Total Protein 6.8 6.4-8.2 gm/dl Albumin 3.3 3.4-5.0 gm/dl Beta-Hydroxybutyric Acid 1.26 0.2-2.81 mg/dL Bedside Troponin I < 0.030 0-0.045 ng/ml Bedside Glucose 298 212 70-90 mg/dl Test 04/02/17 06:38 04/02/17 07:27 04/02/17 09:20 04/02/17 12:03 Range/Units White Blood Count 6.05 4.8-10.8 K/uL Red Blood Count 4.10 4.2-5.4 M/uL Hemoglobin 11.1 12.0-16.0 g/dL Hematocrit 34.3 37-47 % Mean Corpuscular Volume 83.7 80-100 fL Mean Corpuscular Hemoglobin 27.1 25-34 pg Mean Corpuscular Hemoglobin Concent 32.4 32-36 g/dl RDW Standard Deviation 41.7 36.4-46.3 fL RDW Coefficient of Variation 13.8 11.5-14.5 % Platelet Count 180 130-400 K/uL Mean Platelet Volume 9.7 7.4-10.4 fL Sodium Level 145 136-145 mmol/L Potassium Level 3.8 3.5-5.1 mmol/L Chloride Level 109 98-107 mmol/L Carbon Dioxide Level 27 21-32 mmol/L Anion Gap 9.0 3-11 mmol/L Blood Urea Nitrogen 16 7-18 mg/dl Creatinine 0.82 0.60-1.20 mg/dl Est Creatinine Clear Calc Drug Dose 91.1 ml/min Estimated GFR () 95.4 Estimated GFR (Non- 82.3 BUN/Creatinine Ratio 19.6 10-20 Random Glucose 134 70-99 mg/dl Estimated Average Glucose 255 mg/dl Hemoglobin A1c 10.5 4.5-5.6 % Calcium Level 8.4 8.5-10.1 mg/dl Total Creatine Kinase 33 26-192 U/L Creatine Kinase MB 0.6 0.5-3.6 ng/ml Creatine Kinase MB Ratio 1.8 0-3.0 Troponin I < 0.015 0-0.045 ng/ml Bedside Glucose 142 146 70-90 mg/dl Prothrombin Time 11.0 9.0-12.0 SECONDS Prothromb Time International Ratio 1.0 0.9-1.1 Activated Partial Thromboplast Time 23.2 21.0-31.0 SECONDS Partial Thromboplastin Ratio 0.9 Test 04/02/17 14:29 04/02/17 14:50 Range/Units Creatine Kinase MB Ratio 0-3.0
--- NOTE | 2017-04-02 15:25 | EXERCISE STRESS ECHO ---
*NOTICE TO RECEIVING [employer] This information is strictly Confidential and protected under [place] law. [place] law prohibits you from making any further disclosure of this information unless further disclosure is expressly permitted by the written consent of the person to whom it pertains or is authorized by law. A general authorization for the release of medical or other information is not sufficient for this purpose. Hospital accepts no responsibility if the information is made available to any other person, INCLUDING THE PATIENT. Interpretation Summary * Name: SEVERO MULLEN Study Date: 04/02/2017 10:14 AM BP: 134/91 mmHg * Patient Location: [facility] HR: 69 * : 1965 (M/d/yyyy) Gender: Female Height: 65 in * Age: 51 yrs Ethnicity: CA Weight: 208 lb * Ordering Physician: Chance Sanders * Referring Physician: Self, Referred * Performed By: [facility] * * Reason For Study: CHEST PAIN * BSA: 2.0 m2 * There is no inducible ischemia noted at peak stress. * Exercise capacity is below average. * -- Conclusions -- * The patient exhibited a hypertensive response with stress. * Ejection Fraction = 55-60%. * There is trace mitral regurgitation. * There is mild concentric left ventricular hypertrophy. * Grade I diastolic dysfunction, (abnormal relaxation pattern). Procedure Details * ECHOEX, CPT #24082 * ECHO DOPPLER, CPT #[id number] * ECHO COLOR FLOW, CPT #[id number] Left Ventricle * The left ventricle is normal in size. * There is mild concentric left ventricular hypertrophy. * Left ventricular systolic function is normal. * Ejection Fraction = 55-60%. * Resting wall motion: Normal. Stress wall motion: Appropriate increase in Left ventricular systolic function and decrease in cavity size. No stress induced segmental wall motion abnormalities. Right Ventricle * The right ventricle is normal in size and function. Atria * The left atrial size is normal. * Right atrial size is normal. * No ASD detected; PFO is not assessed. Mitral Valve * The mitral valve is normal. * There is no mitral valve stenosis. * There is trace mitral regurgitation. Tricuspid Valve * The tricuspid valve is normal. * There is no tricuspid stenosis. * Significant tricuspid regurgitation is absent. Aortic Valve * The aortic valve is trileaflet. * No hemodynamically significant valvular aortic stenosis. * No aortic regurgitation is present. Pulmonic Valve * The pulmonic valve is not well visualized. Great Vessels * The aortic root is normal size. Pericardium * There is no pericardial effusion. Stress Parameters * The baseline ECG displays normal sinus rhythm. * Stress ECG: No ST changes. No arrhythmias. * The stress portion of this study was personally supervised by the undersigned interpreting physician. * Rest heart rate was '69' BPM. * Rest blood pressure was '134/91' * Maximum heart rate achieved was 164 bpm. * Maximum heart rate was 97 % of maximum age-predicted heart rate. * Maximum blood pressure was '215/89' * Total exercise time was '06:00' * Maximum exercise MET level achieved was '7.00' METS * Maximum treadmill speed was '2.50' miles per hour. * Maximum treadmill elevation was '12.00'% grade. * The patient exhibited a hypertensive response with stress. Left Ventricular Diastolic Function * Grade I diastolic dysfunction, (abnormal relaxation pattern). MMode 2D Measurements and Calculations IVSd 1.3 cm IVSs 1.8 cm LVIDd 4.7 cm LVIDs 3.3 cm LVPWd 1.4 cm LVPWs 1.4 cm IVS/LVPW 0.88 FS 29.8 % EDV(Teich) 100.9 ml ESV(Teich) 43.4 ml EF(Teich) 57.0 % EDV(cubed) 101.9 ml ESV(cubed) 35.2 ml EF(cubed) 65.4 % % IVS thick 44.2 % % LVPW thick -0.39 % LV mass(C)d 252.1 grams LV mass(C)dI 125.3 grams/m\S\2 LV mass(C)s 206.1 grams LV mass(C)sI 102.5 grams/m\S\2 SV(Teich) 57.5 ml SI(Teich) 28.6 ml/m\S\2 SV(cubed) 66.7 ml SI(cubed) 33.2 ml/m\S\2 Ao root diam 2.9 cm Ao root area 6.7 cm\S\2 ACS 2.1 cm LA dimension 3.4 cm LA/Ao 1.2 LVOT diam 2.1 cm LVOT area 3.5 cm\S\2 LVAd ap4 33.1 cm\S\2 LVLd ap4 8.2 cm EDV(MOD-sp4) 110.6 ml EDV(sp4-el) 113.3 ml LVAs ap4 19.3 cm\S\2 LVLs ap4 7.0 cm ESV(MOD-sp4) 46.9 ml ESV(sp4-el) 45.5 ml EF(MOD-sp4) 57.6 % EF(sp4-el) 59.8 % LVAd ap2 28.0 cm\S\2 LVLd ap2 7.8 cm EDV(MOD-sp2) 87.6 ml EDV(sp2-el) 85.7 ml LVAs ap2 17.3 cm\S\2 LVLs ap2 7.0 cm ESV(MOD-sp2) 39.1 ml ESV(sp2-el) 36.2 ml EF(MOD-sp2) 55.3 % EF(sp2-el) 57.7 % LVLd %diff -5.32 % EDV(MOD-bp) 99.0 ml LVLs %diff 0.55 % ESV(MOD-bp) 42.9 ml EF(MOD-bp) 56.7 % SV(MOD-sp4) 63.7 ml SI(MOD-sp4) 31.7 ml/m\S\2 SV(MOD-sp2) 48.4 ml SI(MOD-sp2) 24.1 ml/m\S\2 SV(MOD-bp) 56.1 ml SI(MOD-bp) 27.9 ml/m\S\2 SV(sp4-el) 67.7 ml SI(sp4-el) 33.7 ml/m\S\2 SV(sp2-el) 49.4 ml SI(sp2-el) 24.6 ml/m\S\2 Doppler Measurements and Calculations MV E max victor m 82.0 cm/sec MV A max victor m 70.6 cm/sec MV E/A 1.2 MV P1/2t max victor m 77.8 cm/sec MV P1/2t 71.2 msec MVA(P1/2t) 3.1 cm\S\2 MV dec slope 319.9 cm/sec\S\2 MV dec time 0.19 sec Ao V2 max 120.4 cm/sec Ao max PG 5.8 mmHg Ao max PG (full) 3.9 mmHg LIU(V,A) 2.0 cm\S\2 LIU(V,D) 2.0 cm\S\2 LV V1 max PG 1.9 mmHg LV V1 max 68.7 cm/sec
[2017-04-02 15:47] LABS: CKMB/CK RATIO 2.8 (0-3.0)
[2017-04-03 04:04] VITALS: BP 136/74; PULSE 78; TEMP 36.6; O2SAT 99
[2017-04-03] MEDS: HEPARIN SOD 5000 UNIT/0.5 ML CARP SQ SCH (06:00)
[2017-04-03] MEDS: LEVOTHYROXINE 25 MCG TAB PO SCH (06:17)
[2017-04-03 06:29] LABS: CHOLESTEROL/HDL RATIO 5.1
[2017-04-03 07:17] VITALS: BP 127/79; PULSE 74; TEMP 36.6; O2SAT 96
[2017-04-03] MEDS: SODIUM CHLORIDE 0.9% 1000ML 1,000 ML IV SCH (08:15)
[2017-04-03] MEDS: LISINOPRIL 2.5 MG TAB PO SCH (08:15)
[2017-04-03] MEDS: ATORVASTATIN 40 MG TAB PO SCH (08:16)
[2017-04-03] MEDS: ASPIRIN 81 MG ECTAB PO SCH (08:16)
[2017-04-03] MEDS: FLUTICASONE HFA 110MCG INHALER INH SCH (08:16)
[2017-04-03] MEDS: INSULIN ASPART 100 UNITS/ML 3 ML PEN SC SCH ×2 (08:36→12:37)
[2017-04-03] MEDS ORDERED: METFORMIN HCL 500 MG TAB PO SCH (09:00)
--- NOTE | 2017-04-03 10:49 | Progress Note ---
Internal Med Progress Note Date of Service: Apr 03, 2017. Provider Documentation: SUBJECTIVE: The patient was seen and examined Admitted with exertional chest pain Noted to have very high HbA1c Has been noncompliant Denies any symptoms -ready to be discharged OBJECTIVE: Vital Signs-as noted below Exam: General-No distress at rest Eyes-normal ENT-normal Neck-supple Lungs-clear to ausucltate bilaterally Heart-Regular,no murmur Abdomen-Benign,no masses,bowel sound present Extremities-Trace edema bilaterally Neuro-AAOx3 No focal neuro deficit Lab data as noted below. ASSESSMENT & PLAN: Exertional Chest Pain R/O ACS Risk factors: uncontrolled DM2 and Hyperlipidemia EKG = NSR and Serial Beulah are unremarkable Appreciate Cardiology input Negative Stress ECHO-medical Management Aspirin, statin Remains asymptomatic Discharge home today Uncontrolled DM2 Last Ha1c > 12% Patient has not started insulin therapy and is only on oral medications BSGs > 300 on presentation SSI for now Pharmacy consult for Glycemic control Will need Insulin on discharge Hypothyroidism Continue Synthroid DVT ppx subq heparin FULL CODE DISPOSITION Likely home this afternoon Vital Signs: Date Time Temp Pulse Resp B/P (MAP) Pulse Ox O2 Delivery O2 Flow Rate FiO2 04/03/17 08:30 Room Air 04/03/17 07:17 36.6 74 18 127/79 (95) 96 Room Air 04/03/17 04:04 36.6 78 16 136/74 (94) 99 Room Air 04/03/17 04:00 Room Air 04/03/17 00:00 Room Air 04/02/17 23:24 36.6 72 16 135/77 (96) 97 Room Air 04/02/17 20:00 Room Air 04/02/17 19:47 36.6 74 20 115/76 (89) 94 04/02/17 16:00 Room Air 04/02/17 14:55 36.6 59 18 119/70 (86) 93 04/02/17 12:06 37.1 89 18 127/83 (98) 96 04/02/17 12:00 96 Room Air Lab Results: Results Past 24 Hours Test 04/02/17 12:03 04/02/17 14:50 04/02/17 16:20 04/02/17 20:33 Range/Units Bedside Glucose 146 131 118 70-90 mg/dl Total Creatine Kinase 36 26-192 U/L Creatine Kinase MB 1.0 0.5-3.6 ng/ml Creatine Kinase MB Ratio 2.8 0-3.0 Troponin I < 0.015 0-0.045 ng/ml Test 04/03/17 00:36 04/03/17 04:00 04/03/17 05:39 04/03/17 07:19 Range/Units Bedside Glucose 166 158 170 70-90 mg/dl Triglycerides Level 267 0-150 mg/dl Cholesterol Level 92 0-200 mg/dl HDL Cholesterol 18 mg/dl LDL Cholesterol, Calculated 21 mg/dl VLDL Cholesterol, Calculated 53 mg/dl Cholesterol/HDL Ratio 5.1
[2017-04-03 10:53] VITALS: BP 127/79; PULSE 74; TEMP 36.6; O2SAT 96
--- NOTE | 2017-04-03 11:56 | Pharmacy Progress Note ---
Glycemic Control: Progress Nt Date of Service Apr 03, 2017. Scope Glycemic Pharmacist consulted by Dr Avalos on 04/02/17 for glycemic control and to write orders per [facility] inpatient glycemic control protocol. Objective Accuchecks BSG (last 24hrs): Test 04/02/17 12:03 04/02/17 16:20 04/02/17 20:33 04/03/17 00:36 Bedside Glucose 146 mg/dl (70-90) 131 mg/dl (70-90) 118 mg/dl (70-90) 166 mg/dl (70-90) Test 04/03/17 04:00 04/03/17 07:19 Bedside Glucose 158 mg/dl (70-90) 170 mg/dl (70-90) HbA1c: Test 04/02/17 06:38 Hemoglobin A1c 10.5 % (4.5-5.6) H Recent Pertinent Medications Outpatient Anti-diabetic Regimen: * Amaryl 4 mg PO twice daily with meals and metformin 1 gm PO BID The patient is currently receiving: * Basal insulin: Lantus 10 units every 12 hours * Correctional Insulin: Novolog Correction per scale ACHS Goal Range: Low 120 mg/dL - High 160 mg/dL Correction Factor: 20 mg/dL/unit * Prandial insulin: Per carb ratio of 1 unit per 7 grams CHO consumed Risk Factors for Insulin Resistance: * Diet: type 2 diabetic diet Assessment & Plan ASSESSMENT: * ADA & AACE recommend a goal blood sugar range 140-180 mg/dl for the majority of critically ill & non-critically ill patients. However, more stringent targets may be selected in individual cases. Will utilize more stringent goal of 120-160mg/dl based on patient age & comorbidities. Due to the patient's HbA1C , she may not tolerate lower blood sugars. * Ms Byers was admitted on 04/01/17 with chest pain. The glycemic service was consulted on 04/02/17 and the patient was started on Lantus 10 units twice daily and correctional insulin. Yesterday, the patient's blood sugars ranged from 118- 212 mg/dL. She received 26 units of insulin. * This morning, the patient's fasting blood sugar was 170 mg/dL which is reasonable given her elevated A1C. As the patient wants to be discharge today, the Lantus was transitioned to a once daily dose starting a noon. The correctional insulin was tightened this morning as she did not receive a dose of Lantus this morning. Due to elevated blood sugar this afternoon, this will be continued. Metformin is restarted this morning in preparation for discharge. PLAN FOR INPATIENT GLYCEMIC CONTROL: * Change Lantus to 20 units once daily at breakfast (start today at noon) * TIGHTENING correction factor to 20 mg/dl/unit * TIGHTENING carb ratio to 1 unit per 7 grams CHO consumed * Continuing goal range of Low 120 mg/dL - High 160 mg/dL RECOMMENDATIONS FOR DISCHARGE: * Due to patient's elevated HbA1C, I recommend the following on discharge: * Lantus 20 units once daily in the morning (titrate to goal fasting blood sugars) * Continue metformin * DISCONTINUE Amaryl * Please note that the plan above was derived based on current level of insulin resistance and hospital stress. These recommendations are appropriate for inpatient admission only. Plan of care upon discharge will need to be reassessed to avoid potential outpatient hypo/hyperglycemia. Thank you.
[2017-04-03] MEDS ORDERED: INSDGIPEN SC (11:59)
[2017-04-03] MEDS ORDERED: LPT40 PO (11:59)
--- NOTE | 2017-04-03 12:01 | Discharge Instructions ---
Discharge Instructions Date of Service Apr 03, 2017. Admission Reason for Admission: Chest Pain Radiating To Upper Extremity, Discharge Discharge Diagnosis / Problem: Chest pain s/p Negative Stress ECHO, Uncontrolled Diabetes Discharge Goals Goal(s): Prevent Disease Progression Activity Recommendations Activity Limitations: resume your previous activity . Instructions / Follow-Up Instructions / Follow-Up Dr Parsons on 04/11/17 at 12:45 PM Current Hospital Diet Patient's current hospital diet: AHA Diet (Heart Healthy), Diabetes Type 2 Diet Discharge Diet Recommended Diet: AHA Diet (Heart Healthy), Diabetes Type 2 Diet Pending Studies Studies pending at discharge: no Laboratory Results Hemoglobin A1c Test 04/02/17 06:38 Range/Units Estimated Average Glucose 255 mg/dl Hemoglobin A1c 10.5 H 4.5-5.6 % Lipid Panel Test 04/03/17 05:39 Range/Units Triglycerides Level 267 H 0-150 mg/dl Cholesterol Level 92 0-200 mg/dl HDL Cholesterol 18 mg/dl Cholesterol/HDL Ratio 5.1 LDL Cholesterol, Calculated 21 mg/dl Medical Emergencies . Who to Call and When: Medical Emergencies: If at any time you feel your situation is an emergency, please call 911 immediately. . Non-Emergent Contact Non-Emergency issues call your: Primary Care Provider . Past History Medical & Surgical History: (1) Hyperglycemia (2) Chest pain radiating to upper extremity (3) Hysterectomy (4) Diabetes . "Provider Documentation" section prepared by Savi Avalos. . VTE Core Measure Inpt VTE Proph given/why not?: Unfractionated heparin SQ
[2017-04-03] MEDS ORDERED: INSULIN GLARGINE SOLOSTAR 100 UNITS/ML 3 ML PEN SC SCH (12:30)
--- NOTE | 2017-04-04 07:54 | Discharge Summary ---
Discharge Summary Date of Service Apr 04, 2017. Discharge Summary Admission Date: Apr 02, 2017 at 00:38 Discharge Date: Apr 03, 2017 Discharge Disposition: Home Principal Diagnosis: Chest pain s/p Negative Stress ECHO,Uncontrolled Diabetes Secondary Diagnoses/Problems: Please see [facility] Progress note Consultations: Cardiology Medication Reconciliation New Medications: Atorvastatin (Atorvastatin Calcium) 40 Mg Tab 40 MG PO QAM for 30 Days, #30 TAB Insulin Glargine (Lantus Solostar) 100 Unit/Ml Inj 20 UNIT SC QAM for 30 Days, #1 VIAL Continued Medications: Albuterol Hfa (Ventolin Hfa) 200 Puffs/70500 Mcg Aers 2 PUFFS INH Q6H PRN for SOB/Wheezing, #1 INHALER Allopurinol (Zyloprim) 100 Mg Tab 100 MG PO QAM, TAB Aspirin (Aspirin Ec) 81 Mg Tab 81 MG PO QAM Choline Fenofibrate (Trilipix) 135 Mg Cap 135 MG PO QAM Fluticasone Propionate (Flovent Hfa) 120 Puffs/58520 Mcg Aero 2 PUFFS INH BID for 30 Days, #1 INHALER 3 Refills Levothyroxine Sodium (Levothyroxine Sodium) 25 Mcg Tab 1 TAB PO QAM, TAB Metformin Hcl (Glucophage) 1,000 Mg Tab 1000 MG PO BID, TAB Discontinued Medications: Glimepiride (Glimepiride) 2 Mg Tab 4 MG PO BID Admission Information HPI (per Admitting provider): This is a 51 year old female with a PMH of significantly uncontrolled DM2, HTN, HLD, hypothyroidism presents with L sided chest pain radiating to her L shoulder and between her shoulder blades. States that the pain began in the afternoon of 04/01 - and was severe enough that it worried her to come to the ER. Denies shortness of breath, no fevers/chills, no nausea/vomiting/diarrhea; has had this before and this has gone away on its own. This time, the pain persisted. Currently, pain free after nitro. Past Medical/Surgical History Medical Problems: (1) Diabetes Status: Chronic (2) Hysterectomy Status: Resolved (3) Kidney stone Status: Resolved Family History Diabetes mellitus Heart disease Hypertension Social History Smoking Status: Never Smoker Smokeless Tobacco Use: No Marital Status: Housing status: lives with family Occupational Status: employed Multi-Drug Resistant Organisms History of MDRO: No Allergies Coded Allergies: Meperidine (Verified Allergy, Unknown, HIVES, 04/01/17) Penicillins (Verified Allergy, Unknown, UNKNOWN - "COULDN'T USE MY ARM AFTER SHOT", 04/01/17) Home Medications Scheduled Allopurinol (Zyloprim), 100 MG PO QAM Aspirin (Aspirin Ec), 81 MG PO QAM Choline Fenofibrate (Trilipix), 135 MG PO QAM Fluticasone Propionate (Flovent Hfa), 2 PUFFS INH BID Glimepiride (Glimepiride), 4 MG PO BID Levothyroxine Sodium (Levothyroxine Sodium), 1 TAB PO QAM Metformin Hcl (Glucophage), 1,000 MG PO BID Scheduled PRN Albuterol Hfa (Ventolin Hfa), 2 PUFFS INH Q6H PRN for SOB/Wheezing Review of Systems Constitutional: No fever, No chills Respiratory: No cough, No sputum, No wheezing, No shortness of breath, No dyspnea on exertion Cardiovascular: + chest pain, No orthopnea, No edema, No palpitations Abdomen: No pain, No nausea, No vomiting, No diarrhea, No constipation, No GI bleeding Musculoskeletal: No joint pain, No muscle pain Genitourinary - Female: No dysuria, No urinary frequency, No urinary urgency Neurologic: No weakness, No numbness/tingling, No vertigo, No balance problems Psychiatric: No depression symptoms, No anxiety, No insomnia Endocrine: No fatigue Hematologic / Lymphatic: No abnormal bleeding/bruising Integumentary: No rash Allergic / Immunologic: No environmental allergies, No seasonal allergies Physical Ex - H&P Physical Exam Vital Signs Date Time Temp Pulse Resp B/P (MAP) Pulse Ox O2 Delivery O2 Flow Rate FiO2 04/02/17 02:12 36.7 66 20 129/78 (95) 97 Room Air 04/02/17 01:45 36.7 66 20 129/78 97 Room Air 04/02/17 01:19 74 118/67 97 Room Air 04/02/17 00:32 73 18 129/78 96 Room Air 04/01/17 23:00 79 18 120/76 98 Room Air 04/01/17 22:44 99 Room Air 04/01/17 22:20 90 04/01/17 22:00 36.9 64 18 148/88 97 Room Air General Appearance: no apparent distress, + obese Head: normocephalic, atraumatic Eyes: normal inspection ENT: hearing grossly normal Neck: supple Respiratory/Chest: chest non-tender, lungs clear, normal breath sounds, no respiratory distress, no accessory muscle use Cardiovascular: regular rate, rhythm, no edema, no gallop, no JVD, no murmur, normal peripheral pulses Abdomen/GI: normal bowel sounds, non tender, soft Back: no CVA tenderness, no muscle spasm Extremities/Musculoskelatal: normal capillary refill, no pedal edema Neurologic/Psych: no motor/sensory deficits, alert, normal reflexes Skin: normal color Lymphatic: no adenopathy Diagnostics - H&P Diagnostics Laboratory Results Results Past 24 Hours Test 04/01/17 22:40 04/01/17 22:49 04/02/17 01:04 04/02/17 03:47 Range/Units White Blood Count 5.56 4.8-10.8 K/uL Red Blood Count 4.21 4.2-5.4 M/uL Hemoglobin 11.3 12.0-16.0 g/dL Hematocrit 34.6 37-47 % Mean Corpuscular Volume 82.2 80-100 fL Mean Corpuscular Hemoglobin 26.8 25-34 pg Mean Corpuscular Hemoglobin Concent 32.7 32-36 g/dl Platelet Count 199 130-400 K/uL Mean Platelet Volume 10.0 7.4-10.4 fL Neutrophils (%) (Auto) 51.1 % Lymphocytes (%) (Auto) 38.8 % Monocytes (%) (Auto) 5.9 % Eosinophils (%) (Auto) 3.6 % Basophils (%) (Auto) 0.4 % Neutrophils # (Auto) 2.84 1.4-6.5 K/uL Lymphocytes # (Auto) 2.16 1.2-3.4 K/uL Monocytes # (Auto) 0.33 0.11-0.59 K/uL Eosinophils # (Auto) 0.20 0-0.5 K/uL Basophils # (Auto) 0.02 0-0.2 K/uL RDW Standard Deviation 40.9 36.4-46.3 fL RDW Coefficient of Variation 13.6 11.5-14.5 % Immature Granulocyte % (Auto) 0.2 % Immature Granulocyte # (Auto) 0.01 0.00-0.02 K/uL Sodium Level 141 136-145 mmol/L Potassium Level 3.8 3.5-5.1 mmol/L Chloride Level 104 98-107 mmol/L Carbon Dioxide Level 24 21-32 mmol/L Anion Gap 13.0 3-11 mmol/L Blood Urea Nitrogen 13 7-18 mg/dl Creatinine 1.10 0.60-1.20 mg/dl Est Creatinine Clear Calc Drug Dose 68.1 ml/min Estimated GFR () 66.8 Estimated GFR (Non- 57.7 BUN/Creatinine Ratio 12.1 10-20 Random Glucose 374 70-99 mg/dl Calcium Level 8.8 8.5-10.1 mg/dl Total Bilirubin 0.2 0.2-1 mg/dl Direct Bilirubin < 0.1 0-0.2 mg/dl Aspartate Amino Transf (AST/SGOT) 24 15-37 U/L Alanine Aminotransferase (ALT/SGPT) 36 12-78 U/L Alkaline Phosphatase 66 45-117 U/L Total Creatine Kinase 49 26-192 U/L Creatine Kinase MB 0.8 0.5-3.6 ng/ml Creatine Kinase MB Ratio 1.6 0-3.0 Total Protein 6.8 6.4-8.2 gm/dl Albumin 3.3 3.4-5.0 gm/dl Beta-Hydroxybutyric Acid 1.26 0.2-2.81 mg/dL Bedside Troponin I < 0.030 0-0.045 ng/ml Bedside Glucose 298 70-90 mg/dl CXR normal Normal EKG Impression - H&P Impression Assessment and Plan This is a 51 year old female with a PMH of significantly uncontrolled DM2, HTN, HLD, hypothyroidism presents with L sided chest pain Chest Pain r/o ACS risk factors: uncontrolled DM2 EKG = NSR initial cardiac enzyme negative trend enzymes, repeat EKG in AM, echo monitor in tele nitro PRN for pain aspirin, statin cardiology consultation for possible stress testing Uncontrolled DM2 last Ha1c > 12% patient has not started insulin therapy and is only on oral medications BSGs > 300 on presentation should be discharged on Lantus or Levemir at the very least - will need convincing continue statin started on low dose lisinopril - should be discharged on an JESUS-I Hypothyroidism continue Synthroid DVT ppx subq heparin FULL CODE Advanced Directives Existing Living Will: No Existing Power of Blackjack Pit Boss: No VTE Prophylaxis VTE Risk Assessment Done? Y/N: Yes Risk Level: Moderate Physical Exam (per Admitting): General Appearance: no apparent distress, + obese Head: normocephalic, atraumatic Eyes: normal inspection ENT: hearing grossly normal Neck: supple Respiratory/Chest: chest non-tender, lungs clear, normal breath sounds, no respiratory distress, no accessory muscle use Cardiovascular: regular rate, rhythm, no edema, no gallop, no JVD, no murmur , normal peripheral pulses Abdomen/GI: normal bowel sounds, non tender, soft Back: no CVA tenderness, no muscle spasm Extremities/Musculoskelatal: normal capillary refill, no pedal edema Neurologic/Psych: no motor/sensory deficits, alert, normal reflexes Skin: normal color Lymphatic: no adenopathy Hospital Course Exertional Chest Pain R/O ACS Risk factors: uncontrolled DM2 and Hyperlipidemia EKG = NSR and Serial [place] are unremarkable Appreciate Cardiology input Negative Stress ECHO-medical Management Aspirin, statin Remains asymptomatic Discharge home today Uncontrolled DM2 Last Ha1c > 12% Patient has not started insulin therapy and is only on oral medications BSGs > 300 on presentation SSI for now Pharmacy consult for Glycemic control Will need Insulin on discharge Hypothyroidism Continue Synthroid DVT ppx subq heparin FULL CODE DISPOSITION Likely home this afternoon Total time spent on discharge = This includes examination of the patient, discharge planning, medication reconciliation, and communication with other providers. Discharge Instructions Date of Service Apr 03, 2017. Admission Reason for Admission: Chest Pain Radiating To Upper Extremity, Discharge Discharge Diagnosis / Problem: Chest pain s/p Negative Stress ECHO, Uncontrolled Diabetes Discharge Goals Goal(s): Prevent Disease Progression Activity Recommendations Activity Limitations: resume your previous activity . Instructions / Follow-Up Instructions / Follow-Up Dr Parsons on 04/11/17 at 12:45 PM Current Hospital Diet Patient's current hospital diet: AHA Diet (Heart Healthy), Diabetes Type 2 Diet Discharge Diet Recommended Diet: AHA Diet (Heart Healthy), Diabetes Type 2 Diet Pending Studies Studies pending at discharge: no Laboratory Results Hemoglobin A1c Test 04/02/17 06:38 Range/Units Estimated Average Glucose 255 mg/dl Hemoglobin A1c 10.5 H 4.5-5.6 % Lipid Panel Test 04/03/17 05:39 Range/Units Triglycerides Level 267 H 0-150 mg/dl Cholesterol Level 92 0-200 mg/dl HDL Cholesterol 18 mg/dl Cholesterol/HDL Ratio 5.1 LDL Cholesterol, Calculated 21 mg/dl Medical Emergencies . Who to Call and When: Medical Emergencies: If at any time you feel your situation is an emergency, please call 911 immediately. . Non-Emergent Contact Non-Emergency issues call your: Primary Care Provider . Past History Medical & Surgical History: (1) Hyperglycemia (2) Chest pain radiating to upper extremity (3) Hysterectomy (4) Diabetes . "Provider Documentation" section prepared by Savi Avalos. . VTE Core Measure Inpt VTE Proph given/why not?: Unfractionated heparin SQ <Electronically signed by Savi Avalos M.D.> Signed: 04/03/17 1201 Signed: Additional Copies To Sarbjit Carballo M.D.
== END 2017-04-03 13:00 | disposition home or self-care (01) ==
LOC: C.EDB 21:58 → C.MED 04-02 00:38 → ENRESERV 04-02 00:55
PROVIDERS: ADMIT Family Medicine; ATTEND Internal Medicine
DX: R07.9 Chest pain, unspecified (principal); E11.9 Type 2 diabetes mellitus without complications; E03.9 Hypothyroidism, unspecified; Z90.710 Acquired absence of both cervix and uterus; Z88.0 Allergy status to penicillin; Z79.4 Long term (current) use of insulin; Z79.82 Long term (current) use of aspirin; Z79.899 Other long term (current) drug therapy; Z82.49 Family history of ischemic heart disease and other diseases of the circulatory system; Z83.3 Family history of diabetes mellitus

== ENCOUNTER → 2017-08-13 | Outpatient (CLI) | payer OTHER ==
[~2017-08-13] MED LIST changes: -ALBUAER19 INH; +FLVHFA110 INH; -GLIM2TAB2 PO; -HYDR-5688 PO; +INSDGIPEN SC; +LPT40 PO; -SALM50AE2 INH; +VNTHFA/IN INH
== END | disposition home or self-care (01) ==
LOC: C.RDSM 09:44
PROVIDERS: ATTEND Orthopaedic Surgery Sports Medicine
DX: M25.511 Pain in right shoulder (principal)

== ENCOUNTER 2020-12-28 17:05 | Inpatient (IN) ==
[2020-12-28] MEDS ORDERED: SODIUM CHLORIDE 0.9% 500 ML IV STA (17:28)
[2020-12-28] MEDS ORDERED: DEXAMETHASONE SOD INJ 10 MG/ML VIAL IV ONE (17:31)
--- NOTE | 2020-12-28 17:32 | Emergency Department Note ---
Impression & Plan Acute hypoxemic respiratory failure, Pneumonia due to COVID-19 virus ED Provider Note Provider: Kevin Orozco MD DATE OF SERVICE: 12/28/2020 CHIEF COMPLAINT: Shortness of breath HISTORY OF PRESENT ILLNESS: Patient is a 55-year-old female history of asthma and diabetes presenting here today complaining of shortness of breath developing over the past 5 days. Patient states became ill on Saturday worsened over last few days tested on Saturday for Covid and this returned positive. Patient states she has diffuse myalgias and little bit of diarrhea. Denies vomiting but endorses headache and significant shortness of breath and weakness with movement. Has been trying to lay on her side using [id number] cough medicine she has a dry cough. Reports breathing worsened today and thus she called 9 1. The ambulance was noted to be hypoxic approximately 70% on room air. Placed on supplemental oxygen brought here for further evaluation. Lives in with who she states has been doing well. Has not been on any treatments for Covid such as steroids at home. Patient states her breathing is somewhat improved with the oxygen. No syncope reported. Patient reports some decreased oral intake over the last several days due to illness. REVIEW OF SYSTEMS: A total of 10 review of systems was obtained and negative except as stated above in the HPI. PAST MEDICAL HISTORY: As noted above MEDICATIONS: Reviewed home medication list. SOCIAL HISTORY: Non-smoker, lives at home with PHYSICAL EXAM: GENERAL: alert and oriented in no acute distress on stretcher Head: normocephalic and atraumatic EYES: No injection, discharge or icterus. NECK: Trachea midline. LUNGS: Airway patent. Tachypneic with coarse air sounds throughout with increased work of breathing. HEART: Regular tachycardic rate and rhythm. No chest wall tenderness ABDOMEN: Soft and non-tender, without guarding or rebound. SKIN: Acyanotic, warm, dry, without rashes EXTREMITIES: Without swelling, tenderness or deformity NEUROLOGICAL: No focal deficits. No aphasia. No facial droop or slurred speech. EK bpm sinus tachycardia. No PVC or PAC. No acute ST segment elevation or depression with lead III T wave inversion noted. QTc 465. CONTINUOUS CARDIAC MONITORING: was ordered and showed a heart rate of 100s-120s bpm in sinus tachycardia Patient's laboratory studies and imaging reviewed. Differential includes Reactive airway disease, pneumonia, pneumothorax, COPD, CHF, infections, cardiac ischemia, pulmonary embolism, musculoskeletal, gastrointestinal, as well as other pathologies. IMPRESSION/MEDICAL DECISION MAKING: Patient presents with known Covid more short of breath found to be significantly hypoxic on room air. In the high 80s on a nonrebreather at 15 L and thus transition to high flow oxygen. Given a dose of steroids/dexamethasone given hypoxia with coronavirus infection. Laboratory studies were sent and chest x- ray obtained. Initially ordered a CT of the chest to exclude PE given her significant hypoxia today. Given a small IV fluid bolus given some decreased oral intake recently. EKG and troponin were sent as well as basic laboratory studies. Initially started on high flow oxygen continue be hypoxic and transition to BiPAP. Patient had improvement of her work of breathing with this and her oxygen saturations stabilized in the low 90s. Blood work without significant leuko-cytosis or anemia. Doubt this is a bacterial infection. D- dimer just mildly elevated. No significant electrolyte abnormality and CRP is moderately elevated at 24. Repeat Covid testing here was positive and again chest x-ray appears with diffuse interstitial findings consistent with coronavirus infection. Troponin not elevated. Given her somewhat tenuous respiratory status discussed with the hospitalist deferring CT of the chest at this point. Patient was updated. [facility] hospitalist will admit the patient and provide further care. DIAGNOSIS: COVID-19 pneumonia, acute hypoxic respiratory failure DISPOSITION: Hospitalist will evaluate Patient was agreeable with this plan. Critical Care I have personally spent 37 minutes of critical care time in the direct management of this patient. This includes bedside care, interpretation of diagnostic studies, and testing, discussion with consultants, patient, and other required patient management activities. These 37 minutes is in excess of all separately billable procedures. Past Med/Surg History Social History Smoking Status: Never smoker Hx Alcohol Use: No Hx Substance Use: No Preferred Language: Wolof Communication Ability: Effective Culinary Director Required: No Beliefs That Will Affect Care: None Current Living Situation: Spouse Other Information That Helps Us Care for You: No Feels Safe at Home: Yes Safety Concerns: Feels Safe At This Time Assistive Devices: Nebulizer Allergies Allergies Allergy/AdvReac Type Severity Reaction Status Date / Time lisinopril Allergy Unknown Unknown Verified 12/28/20 18:37 meperidine Allergy Unknown Hives Verified 12/28/20 18:36 Penicillins Allergy Unknown Could not Verified 12/28/20 18:37 use arm after shot Home Meds Home Medications Medication Instructions Recorded Confirmed albuterol sulfate 2 puff INHALATION .Q4-6HRS PRN 12/28/20 12/28/20 albuterol sulfate 2.5 mg INHALATION Q4H PRN 12/28/20 12/28/20 allopurinol 100 mg PO DAILY 12/28/20 12/28/20 aspirin 81 mg PO DAILY 12/28/20 12/28/20 atorvastatin 20 mg PO QAM 12/28/20 12/28/20 dulaglutide [Trulicity] 0.75 mg SUBCUT WK 12/28/20 12/28/20 empagliflozin [Jardiance] 25 mg PO DAILY 12/28/20 12/28/20 fenofibrate micronized 200 mg PO DAILY 12/28/20 12/28/20 fluticasone propionate [Flovent 2 puff INHALATION BID 12/28/20 12/28/20 HFA] insulin detemir U-100 [Levemir 24 unit SUBCUT DAILY 12/28/20 12/28/20 FlexTouch U-100 Insuln] levothyroxine 25 mcg PO QAM 12/28/20 12/28/20 metformin 1,000 mg PO BIDM 12/28/20 12/28/20 montelukast 10 mg PO DAILY 12/28/20 12/28/20 triamcinolone acetonide 1 applic TOPICAL BID 12/28/20 12/28/20 Results & Data (ED) Vital Signs Vital Signs - 24 hr 12/28/20 17:41 12/28/20 17:42 12/28/20 17:50 Temperature 37.3 C Temperature Source Oral Pulse Rate 124 H Pulse Rate [Finger] 115 H Pulse Rhythm Regular Pulse Strength Normal Respiratory Rate 18 30 H Respiratory Effort / Characteristics Non-Labored Spontaneous Non-Labored Spontaneous Spontaneous Short of Breath Respiratory Depth Normal Respiratory Pattern Regular Blood Pressure 108/74 Blood Pressure Mean 85 Blood Pressure Position Sitting Pulse Oximetry 72 L 90 Oxygen Delivery Method Nasal Cannula High Flow Nasal Cannula Oxygen Flow Rate 6 40 Fraction of Inspired Oxygen 80 Sepsis Recent Fever Within 48 Hours No Sepsis New/Unexplained Change in Mental Status N/A Sepsis Action Taken by Nursing No Action Required 12/28/20 18:34 12/28/20 19:03 Temperature Temperature Source Pulse Rate 109 H Pulse Rate [Finger] 116 H Pulse Rhythm Pulse Strength Respiratory Rate 20 34 H Respiratory Effort / Characteristics Spontaneous Spontaneous Short of Breath Respiratory Depth Normal Respiratory Pattern Tachypnea Blood Pressure Blood Pressure Mean Blood Pressure Position Pulse Oximetry 90 93 Oxygen Delivery Method High Flow Nasal Cannula Oxygen Flow Rate 40 Fraction of Inspired Oxygen 100 70 Sepsis Recent Fever Within 48 Hours Sepsis New/Unexplained Change in Mental Status Sepsis Action Taken by Nursing Laboratory Data Result diagrams: 12/28/20 18:16 12/28/20 18:16 Lab Results 12/28/20 12/28/20 12/28/20 Range/Units 18:16 18:16 18:16 WBC 6.77 (4.8-10.8) K/uL RBC 4.77 (4.2-5.4) M/uL Hgb 12.5 (12.0-16.0) g/dL Hct 39.5 (37-47) % MCV 82.8 (80-100) fL MCH 26.2 (25-34) pg MCHC 31.6 L (32-36) g/dL RDW Std Deviation 42.2 (36.4-46.3) fL RDW Coeff of Mynor 14.0 (11.5-14.5) % Plt Count 237 (130-400) K/uL MPV 10.2 (7.4-10.4) fL Immature Gran % (Auto) 0.7 % Neut % (Auto) 73.5 % Lymph % (Auto) 16.5 % [place] % (Auto) 8.7 % Eos % (Auto) 0.3 % Baso % (Auto) 0.3 % Neut # (Auto) 4.97 (1.4-6.5) K/uL Lymph # (Auto) 1.12 L (1.2-3.4) K/uL [place] # (Auto) 0.59 (0.11-0.59) K/uL Eos # (Auto) 0.02 (0-0.5) K/uL Baso # (Auto) 0.02 (0-0.2) K/uL Immature Gran # (Auto) 0.05 H (0.00-0.02) K/uL PT 10.5 (9.0-12.0) Seconds INR 1.0 (0.9-1.1) APTT 27.7 (21.0-31.0) Seconds PTT Ratio 1.1 D-Dimer 590 H* (0-500) ug/L FEU Sodium 142 (136-145) mmol/L Potassium 4.6 (3.5-5.1) mmol/L Chloride 111 H (98-107) mmol/L Carbon Dioxide 26 (21-32) mmol/L Anion Gap 5.0 (3-11) BUN 17 (7-18) mg/dl Creatinine 1.39 H (0.6-1.2) mg/dl Est Cr Clr Drug Dosing 46.4 ml/min Est GFR ( Amer) 49.0 Est GFR (Non-Af Amer) 42.3 BUN/Creatinine Ratio 11.9 (10-20) Glucose 193 H (70-99) mg/dl Lactate (0.4-2.0) mmol/L Calcium 8.8 (8.5-10.1) mg/dl Magnesium 2.4 (1.8-2.4) mg/dl Total Bilirubin 0.3 (0.2-1) mg/dl AST 32 (15-37) U/L ALT 19 (12-78) U/L Alkaline Phosphatase 82 (45-117) U/L Troponin I < 0.015 (0-0.045) ng/ml C-Reactive Protein 24.00 H (0-0.29) mg/dl Total Protein 7.8 (6.4-8.2) gm/dl Albumin 2.8 L (3.4-5.0) gm/dl Globulin 5.0 H (2.5-4.0) gm/dl Albumin/Globulin Ratio 0.6 L (0.9-2) Procalcitonin (0-0.5) ng/ml COVID-19 Eval Order SARS-CoV-2 (PCR) (Negative) Influenza Type A (PCR) (Neg) Influenza Type B (PCR) (Neg) RSV (RT-PCR) (Neg) Blood Type Antibody Screen 12/28/20 12/28/20 12/28/20 Range/Units 18:16 18:16 18:19 WBC (4.8-10.8) K/uL RBC (4.2-5.4) M/uL Hgb (12.0-16.0) g/dL Hct (37-47) % MCV (80-100) fL MCH (25-34) pg MCHC (32-36) g/dL RDW Std Deviation (36.4-46.3) fL RDW Coeff of Mynor (11.5-14.5) % Plt Count (130-400) K/uL MPV (7.4-10.4) fL Immature Gran % (Auto) % Neut % (Auto) % Lymph % (Auto) % [place] % (Auto) % Eos % (Auto) % Baso % (Auto) % Neut # (Auto) (1.4-6.5) K/uL Lymph # (Auto) (1.2-3.4) K/uL [place] # (Auto) (0.11-0.59) K/uL Eos # (Auto) (0-0.5) K/uL Baso # (Auto) (0-0.2) K/uL Immature Gran # (Auto) (0.00-0.02) K/uL PT (9.0-12.0) Seconds INR (0.9-1.1) APTT (21.0-31.0) Seconds PTT Ratio D-Dimer (0-500) ug/L FEU Sodium (136-145) mmol/L Potassium (3.5-5.1) mmol/L Chloride (98-107) mmol/L Carbon Dioxide (21-32) mmol/L Anion Gap (3-11) BUN (7-18) mg/dl Creatinine (0.6-1.2) mg/dl Est Cr Clr Drug Dosing ml/min Est GFR ( Amer) Est GFR (Non-Af Amer) BUN/Creatinine Ratio (10-20) Glucose (70-99) mg/dl Lactate 2.6 H* (0.4-2.0) mmol/L Calcium (8.5-10.1) mg/dl Magnesium (1.8-2.4) mg/dl Total Bilirubin (0.2-1) mg/dl AST (15-37) U/L ALT (12-78) U/L Alkaline Phosphatase (45-117) U/L Troponin I (0-0.045) ng/ml C-Reactive Protein (0-0.29) mg/dl Total Protein (6.4-8.2) gm/dl Albumin (3.4-5.0) gm/dl Globulin (2.5-4.0) gm/dl Albumin/Globulin Ratio (0.9-2) Procalcitonin 0.41 (0-0.5) ng/ml COVID-19 Eval Order SARS-CoV-2 (PCR) (Negative) Influenza Type A (PCR) (Neg) Influenza Type B (PCR) (Neg) RSV (RT-PCR) (Neg) Blood Type A Positive Antibody Screen NEGATIVE 12/28/20 12/28/20 Range/Units 18:20 18:20 WBC (4.8-10.8) K/uL RBC (4.2-5.4) M/uL Hgb (12.0-16.0) g/dL Hct (37-47) % MCV (80-100) fL MCH (25-34) pg MCHC (32-36) g/dL RDW Std Deviation (36.4-46.3) fL RDW Coeff of Mynor (11.5-14.5) % Plt Count (130-400) K/uL MPV (7.4-10.4) fL Immature Gran % (Auto) % Neut % (Auto) % Lymph % (Auto) % [place] % (Auto) % Eos % (Auto) % Baso % (Auto) % Neut # (Auto) (1.4-6.5) K/uL Lymph # (Auto) (1.2-3.4) K/uL [place] # (Auto) (0.11-0.59) K/uL Eos # (Auto) (0-0.5) K/uL Baso # (Auto) (0-0.2) K/uL Immature Gran # (Auto) (0.00-0.02) K/uL PT (9.0-12.0) Seconds INR (0.9-1.1) APTT (21.0-31.0) Seconds PTT Ratio D-Dimer (0-500) ug/L FEU Sodium (136-145) mmol/L Potassium (3.5-5.1) mmol/L Chloride (98-107) mmol/L Carbon Dioxide (21-32) mmol/L Anion Gap (3-11) BUN (7-18) mg/dl Creatinine (0.6-1.2) mg/dl Est Cr Clr Drug Dosing ml/min Est GFR ( Amer) Est GFR (Non-Af Amer) BUN/Creatinine Ratio (10-20) Glucose (70-99) mg/dl Lactate (0.4-2.0) mmol/L Calcium (8.5-10.1) mg/dl Magnesium (1.8-2.4) mg/dl Total Bilirubin (0.2-1) mg/dl AST (15-37) U/L ALT (12-78) U/L Alkaline Phosphatase (45-117) U/L Troponin I (0-0.045) ng/ml C-Reactive Protein (0-0.29) mg/dl Total Protein (6.4-8.2) gm/dl Albumin (3.4-5.0) gm/dl Globulin (2.5-4.0) gm/dl Albumin/Globulin Ratio (0.9-2) Procalcitonin (0-0.5) ng/ml COVID-19 Eval Order CovFluRsv at [facility] SARS-CoV-2 (PCR) POSITIVE A* (Negative) Influenza Type A (PCR) Negative (Neg) Influenza Type B (PCR) Negative (Neg) RSV (RT-PCR) Negative (Neg) Blood Type Antibody Screen Administered Medications Sodium Chloride (1/2 Nss) 1,000 mls @ 100 mls/hr IV .Q10H STA Stop: 12/29/20 07:19 Last Admin: 12/28/20 22:12 Dose: 100 mls/hr Documented by: [id number] Discontinued Medications Dexamethasone (Dexamethasone Sod Inj 10 Mg/Ml Vial) 6 mg IV NOW ONE Stop: 12/28/20 17:32 Last Admin: 12/28/20 18:35 Dose: 6 mg Documented by: [id number] Sodium Chloride (Nss) 500 mls @ 999 mls/hr IV .Q31M STA Stop: 12/28/20 17:58 Last Infusion: 12/28/20 19:14 Dose: 0 mls/hr Documented by: [id number] Admin: 12/28/20 18:35 Dose: 999 mls/hr Documented by: [id number] Levalbuterol HCl (Levalbuterol Tartrate 15 Gm Hfa.Aer.Ad) 2 puffs INH NOW STA Stop: 12/28/20 19:16 Last Admin: 12/28/20 21:38 Dose: Not Given Documented by: [id number] Discharge Plan Visit Data Chief Complaint: Shortness of Breath/Dyspnea Stated Complaint: SOB, COVID+ ED Provider: Kevin Orozco Discharge Problem: Acute hypoxemic respiratory failure, Pneumonia due to COVID-19 virus Patient Disposition: Admitted As Inpatient Discharge Instructions Interventions: ED Discharge Assessment Last Done: 12/28/20 20:53
[2020-12-28 18:33] LABS: Hematocrit (blood only) 39.5 % (37-47); Hemoglobin 12.5 g/dL (12.0-16.0); Mean Corpuscular Hemoglobin 26.2 pg (25-34); Mean Corpuscular Hgb Conc 31.6 g/dL (32-36); Mean Corpuscular Volume 82.8 fL (80-100); Mean Platelet Volume 10.2 fL (7.4-10.4); Platelet Count 237 K/uL (130-400); RDW Standard Deviation 42.2 fL (36.4-46.3); Red Blood Count 4.77 M/uL (4.2-5.4); White Blood Count 6.77 K/uL (4.8-10.8)
--- NOTE | 2020-12-28 18:43 | XRay Report ---
XR chest 1V portable HISTORY: Dyspnea COMPARISON: Chest 04/01/2017. FINDINGS: There are low lung volumes. No pneumothorax. No pleural effusions. The heart is normal in s ize. Near diffuse patchy bilateral airspace opacities most pronounced within the mid to lower lung zo dg. This is consistent with a multifocal pneumonia and is likely due to a viral process. IMPRESSION: Multifocal bilateral airspace opacities. This likely represents a viral pneumonia. Recommend follow-u p to ensure resolution. ACT 112: Negative or not required by law. Electronically signed by: Abiodun Fernandez M.D. 12/28/2020 6:42 PM
[2020-12-28 18:48] LABS: Partial Thromboplastin Ratio 1.1; Partial Thromboplastin Time 27.7 Seconds (21.0-31.0); Prothrombin Time 10.5 Seconds (9.0-12.0)
[2020-12-28 18:51] LABS: Alanine Aminotransferase 19 U/L (12-78); Albumin Level 2.8 gm/dl (3.4-5.0); Aspartate Aminotransferase 32 U/L (15-37); BUN Creatinine Ratio 11.9 (10-20); Blood Urea Nitrogen 17 mg/dl (7-18); Calcium 8.8 mg/dl (8.5-10.1); Carbon Dioxide 26 mmol/L (21-32); Chloride 111 mmol/L (98-107); Creatinine Clr Calc Pharmacy 46.4 ml/min; Est GFR (Non-African American) 42.3; Glucose 193 mg/dl (70-99); Magnesium 2.4 mg/dl (1.8-2.4); Potassium 4.6 mmol/L (3.5-5.1); Sodium 142 mmol/L (136-145)
[2020-12-28 18:57] LABS: Basophils # (auto) 0.02 K/uL (0-0.2); Basophils % (auto) 0.3 %; Eosinophils # (auto) 0.02 K/uL (0-0.5); Eosinophils % (auto) 0.3 %; Immature Granulocytes # (auto) 0.05 K/uL (0.00-0.02); Immature Granulocytes % (auto) 0.7 %; Lymphocytes # (auto) 1.12 K/uL (1.2-3.4); Lymphocytes % (auto) 16.5 %; Monocytes # (auto) 0.59 K/uL (0.11-0.59); Monocytes % (auto) 8.7 %; Neutrophils # (auto) 4.97 K/uL (1.4-6.5); Neutrophils % (auto) 73.5 %
[2020-12-28 18:58] LABS: Albumin Globulin Ratio 0.6 (0.9-2); Alkaline Phosphatase 82 U/L (45-117); Bilirubin,Total 0.3 mg/dl (0.2-1); Total Protein 7.8 gm/dl (6.4-8.2); Troponin I < 0.015 ng/ml (0-0.045)
[2020-12-28 19:01] LABS: D Dimer 590 ug/L FEU (0-500)
[2020-12-28] MEDS ORDERED: LEVALBUTEROL TARTRATE 15 GM HFA.AER.AD INH STA (19:15)
[2020-12-28] MEDS ORDERED: SODIUM CHLORIDE 0.45 % 1,000 ML IV ONE (19:22)
[2020-12-28 19:26] LABS: Influenza A virus by PCR Negative (Neg); Influenza B virus by PCR Negative (Neg); RSV by PCR Negative (Neg)
[2020-12-28 19:29] LABS: SARS CoV2 RNA(COVID-19) InHosp POSITIVE (Negative)
--- NOTE | 2020-12-28 19:45 | History & Physical Report ---
Date of Service December 28, 2020 Assessment & Plan (1) Acute hypoxemic respiratory failure: Secondary to asthma exacerbation secondary to severe COVID-19 pneumonia hypertension, slight elevated ARF secondary to illness Diarrhea secondary to illness rule out C. difficile hyperlipidemia on statin Rx DM2 insulin requiring, suboptimal control asked off recent outpatient hemoglobin A1c of 12.28 November 2020 PCU BiPAP Baseline ABG Decadron, Remdesivir for severe COVID-19 pneumonia. (Patient was counseled regarding potential adverse effects from Remdesivir therapy and provided with patient education sheet. Patient also agreeable to convalescent plasma if warranted. Verbal consent obtained for blood product administration.) MDI RTC Pulmonary consult if without improvement Baseline UA, monitor creatinine response to IVF Stool C. difficile Basal insulin, ISS BG goal 285560, carb count coverage DVT prophylaxis. Heparin subcu Full code Patient's daughter requesting updates providers. Ms. Zulma Aguilar, contact #[phone]. Text document was generated using [employer] voice recognition software. It may contain grammatical or spelling errors. Kindly contact undersigned for clarification of any documentation item in question. History of Present Illness Chief Complaint: Shortness of breath Primary Care Provider: Sarbjit Carballo MD History obtained from patient, family, and records. Medical history significant for asthma, hypertension, hyperlipidemia, DM2 insulin requiring. Last confinement March 2017 for chest pain. Stress echo was negative. 5 days history of body aches, flulike symptoms, diarrhea without abdominal pain. Dry cough followed by shortness of breath and wheezing at home. Infrequent asthma attacks/rescue inhaler use prior to illness. Possible sick COVID-19 contacts. Outpatient COVID-19 test from 2 days ago was positive. Patient noted worsening shortness of breath today with achy chest pain, headache attributed to coughing. O2 sats at home noted to be 70s. Patient brought to the ER by EMS. Decadron administered at the ER. BiPAP initiated in the ER. 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 Allergies Allergy/AdvReac Type Severity Reaction Status Date / Time lisinopril Allergy Unknown Unknown Verified 12/28/20 18:37 meperidine Allergy Unknown Hives Verified 12/28/20 18:36 Penicillins Allergy Unknown Could not Verified 12/28/20 18:37 use arm after shot Home Medications Medication Instructions Recorded Confirmed Type albuterol sulfate 2 puff INHALATION .Q4-6HRS PRN 12/28/20 12/28/20 History albuterol sulfate 2.5 mg INHALATION Q4H PRN 12/28/20 12/28/20 History allopurinol 100 mg PO DAILY 12/28/20 12/28/20 History aspirin 81 mg PO DAILY 12/28/20 12/28/20 History atorvastatin 20 mg PO QAM 12/28/20 12/28/20 History dulaglutide [Trulicity] 0.75 mg SUBCUT WK 12/28/20 12/28/20 History empagliflozin [Jardiance] 25 mg PO DAILY 12/28/20 12/28/20 History fenofibrate micronized 200 mg PO DAILY 12/28/20 12/28/20 History fluticasone propionate [Flovent 2 puff INHALATION BID 12/28/20 12/28/20 History HFA] insulin detemir U-100 [Levemir 24 unit SUBCUT DAILY 12/28/20 12/28/20 History FlexTouch U-100 Insuln] levothyroxine 25 mcg PO QAM 12/28/20 12/28/20 History metformin 1,000 mg PO BIDM 12/28/20 12/28/20 History montelukast 10 mg PO DAILY 12/28/20 12/28/20 History triamcinolone acetonide 1 applic TOPICAL BID 12/28/20 12/28/20 History Past Med/Surg History Social History Smoking Status: Never smoker Hx Alcohol Use: No Hx Substance Use: No Preferred Language: Setswana Communication Ability: Effective Instrument Calibrator Required: No Beliefs That Will Affect Care: None Current Living Situation: Spouse Other Information That Helps Us Care for You: No Feels Safe at Home: Yes Safety Concerns: Feels Safe At This Time Assistive Devices: Nebulizer Review of Systems Review of Systems: As per HPI, all 10 systems reviewed, all other ROS negative Physical Exam Physical Exam: GENERAL: Slightly uncomfortable, slightly anxious, minimal respiratory distress SKIN: Normal color, warm HEENT: [place] palpebral conjunctivae, no ptosis, dry buccal mucosa, BiPAP in place NECK : Supple, no tenderness CHEST : Decreased breath sounds, occasional expiratory wheezes, no tenderness HEART : Tachycardic, no obvious murmurs ABDOMEN: Some distention, nontender EXTREMITIES : No LE swelling/tenderness, no other conspicuous deformities noted NEUROLOGIC : Coherent, no facial asymmetry, no other gross focality Results & Data Results & Data ([facility]) Vital Signs (Past 12 Hours) Vital Signs Temp Pulse Pulse Resp BP Pulse Ox 12/28/20 19:03 109 H 34 H 93 12/28/20 18:34 116 H 20 90 12/28/20 17:50 115 H 30 H 90 12/28/20 17:42 37.3 C 124 H 18 108/74 72 L Laboratory Results Laboratory Results WBC 6.77 K/uL (4.8-10.8) 12/28/20 18:16 RBC 4.77 M/uL (4.2-5.4) 12/28/20 18:16 Hgb 12.5 g/dL (12.0-16.0) 12/28/20 18:16 Hct 39.5 % (37-47) 12/28/20 18:16 MCV 82.8 fL (80-100) 12/28/20 18:16 MCH 26.2 pg (25-34) 12/28/20 18:16 MCHC 31.6 g/dL (32-36) L 12/28/20 18:16 RDW Std Deviation 42.2 fL (36.4-46.3) 12/28/20 18:16 RDW Coeff of Mynor 14.0 % (11.5-14.5) 12/28/20 18:16 Plt Count 237 K/uL (130-400) 12/28/20 18:16 MPV 10.2 fL (7.4-10.4) 12/28/20 18:16 Immature Gran % (Auto) 0.7 % 12/28/20 18:16 Neut % (Auto) 73.5 % 12/28/20 18:16 Lymph % (Auto) 16.5 % 12/28/20 18:16 [place] % (Auto) 8.7 % 12/28/20 18:16 Eos % (Auto) 0.3 % 12/28/20 18:16 Baso % (Auto) 0.3 % 12/28/20 18:16 Neut # (Auto) 4.97 K/uL (1.4-6.5) 12/28/20 18:16 Lymph # (Auto) 1.12 K/uL (1.2-3.4) L 12/28/20 18:16 [place] # (Auto) 0.59 K/uL (0.11-0.59) 12/28/20 18:16 Eos # (Auto) 0.02 K/uL (0-0.5) 12/28/20 18:16 Baso # (Auto) 0.02 K/uL (0-0.2) 12/28/20 18:16 Immature Gran # (Auto) 0.05 K/uL (0.00-0.02) H 12/28/20 18:16 PT 10.5 Seconds (9.0-12.0) 12/28/20 18:16 INR 1.0 (0.9-1.1) 12/28/20 18:16 APTT 27.7 Seconds (21.0-31.0) 12/28/20 18:16 PTT Ratio 1.1 12/28/20 18:16 D-Dimer 590 ug/L FEU (0-500) H* 12/28/20 18:16 Sodium 142 mmol/L (136-145) 12/28/20 18:16 Potassium 4.6 mmol/L (3.5-5.1) 12/28/20 18:16 Chloride 111 mmol/L (98-107) H 12/28/20 18:16 Carbon Dioxide 26 mmol/L (21-32) 12/28/20 18:16 Anion Gap 5.0 (3-11) 12/28/20 18:16 BUN 17 mg/dl (7-18) 12/28/20 18:16 Creatinine 1.39 mg/dl (0.6-1.2) H 12/28/20 18:16 Est Cr Clr Drug Dosing 46.4 ml/min 12/28/20 18:16 Est GFR ( Amer) 49.0 12/28/20 18:16 Est GFR (Non-Af Amer) 42.3 12/28/20 18:16 BUN/Creatinine Ratio 11.9 (10-20) 12/28/20 18:16 Glucose 193 mg/dl (70-99) H 12/28/20 18:16 Lactate 2.6 mmol/L (0.4-2.0) H* 12/28/20 18:16 Calcium 8.8 mg/dl (8.5-10.1) 12/28/20 18:16 Magnesium 2.4 mg/dl (1.8-2.4) 12/28/20 18:16 Total Bilirubin 0.3 mg/dl (0.2-1) 12/28/20 18:16 AST 32 U/L (15-37) 12/28/20 18:16 ALT 19 U/L (12-78) 12/28/20 18:16 Alkaline Phosphatase 82 U/L (45-117) 12/28/20 18:16 Troponin I < 0.015 ng/ml (0-0.045) 12/28/20 18:16 C-Reactive Protein 24.00 mg/dl (0-0.29) H 12/28/20 18:16 Total Protein 7.8 gm/dl (6.4-8.2) 12/28/20 18:16 Albumin 2.8 gm/dl (3.4-5.0) L 12/28/20 18:16 Globulin 5.0 gm/dl (2.5-4.0) H 12/28/20 18:16 Albumin/Globulin Ratio 0.6 (0.9-2) L 12/28/20 18:16 COVID-19 Eval Order CovFluRsv at [facility] 12/28/20 18:20 SARS-CoV-2 (PCR) POSITIVE (Negative) A* 12/28/20 18:20 Influenza Type A (PCR) Negative (Neg) 12/28/20 18:20 Influenza Type B (PCR) Negative (Neg) 12/28/20 18:20 RSV (RT-PCR) Negative (Neg) 12/28/20 18:20 Blood Type A Positive 12/28/20 18:16 Antibody Screen NEGATIVE 12/28/20 18:16 Diagnostic Findings Chest x-ray : Multifocal bilateral airspace opacities. This likely represents a viral pneumonia. Recommend follow-up to ensure resolution. EKG as per my interpretation : Rate 120, sinus tachycardia, normal axis, septal infarct, T wave abnormality septal leads
[2020-12-28 20:53] LABS: HCO3 ABG 24 mmol/L (19-24); PCO2 ABG 38 mmHg (35-46); PO2 ABG 63 mmHg (80-95)
[2020-12-28 20:57] LABS: Allen Test POS (Pos)
[2020-12-28] MEDS ORDERED: SODIUM CHLORIDE 0.45 % 1,000 ML IV STA (21:20)
[2020-12-28] MEDS ORDERED: traMADol HCL 50 MG TABLET PO PRN (21:35)
[2020-12-28] MEDS ORDERED: GLUCAGON FOR INJ 1 MG VIAL SQ PRN (21:35)
[2020-12-28] MEDS ORDERED: ACETAMINOPHEN 325 MG TAB PO PRN (21:35)
[2020-12-28] MEDS ORDERED: CARBOHYDRATES FOR HYPOGLYCEMIA PO PRN (21:35)
[2020-12-28] MEDS ORDERED: PROMETHAZINE HCL 12.5 MG in SODIUM CHLORIDE 0.9% 50 ML IV PRN (21:35)
[2020-12-28] MEDS ORDERED: GLUCOSE 10 TABS/TUBE PO PRN (21:35)
[2020-12-28] MEDS ORDERED: GLUCOSE 40% GEL 15 GM TUBE PO PRN (21:35)
[2020-12-28] MEDS ORDERED: REMDESIVIR 200 MG in SODIUM CHLORIDE 0.9% 210 ML IV ONE (22:00)
[2020-12-28] MEDS: INSULIN GLARGINE SOLOSTAR 100 UNITS/ML 3 ML PEN SQ SCH (23:05)
[2020-12-28] MEDS: INSULIN ASPART 100 UNITS/ML 3 ML PEN SC SCH (23:07)
[2020-12-28 23:09] LABS: Appearance Urine Cloudy (Clear); Bacteria Urine Automated 4+ (Negative); Bilirubin Urine Negative (Negative); Blood Urine 1+ (Negative); Cast Urine Automated 0 /lpf (0-5); Color Urine Yellow; Epithelial Cell Urine Auto 0-5 /lpf (0-5); Glucose Urine UA 3+ (Negative); Ketones Urine Trace (Negative); Leukocyte Esterase Urine Negative (Negative); Nitrite Urine Negative (Negative); Protein Urine 2+ (Negative); RBC Urine Automated 0-4 /hpf (0-4); Specific Gravity Urine 1.038 (1.000-1.030); Urobilinogen Urine Negative (Negative); pH Urine 5.5 (4.5-7.5)
[2020-12-28] MEDS: BENZONATATE 100 MG CAPSULE PO PRN (23:45)
[2020-12-28] MEDS: guaiFENesin 600 MG TABCR PO SCH (23:45)
[2020-12-28] MEDS: HEPARIN SOD 5,000 UNIT/0.5 ML VIAL SQ SCH (23:46)
[2020-12-29] MEDS: SODIUM CHLORIDE 0.9% 10ML FLUSH IV SCH ×2 (02:04→20:50)
[2020-12-29] MEDS: dexAMETHasone 6 MG in SYRINGE 0 ML IV SCH (04:23)
[2020-12-29] MEDS: LEVOTHYROXINE SODIUM 25 MCG TABLET PO SCH (06:04)
[2020-12-29 06:08] LABS: Hematocrit (blood only) 38.2 % (37-47); Mean Corpuscular Hemoglobin 26.3 pg (25-34); Mean Corpuscular Hgb Conc 31.4 g/dL (32-36); Mean Corpuscular Volume 83.6 fL (80-100); Mean Platelet Volume 10.5 fL (7.4-10.4); Platelet Count 245 K/uL (130-400); RDW Coefficient of Variation 14.1 % (11.5-14.5); RDW Standard Deviation 42.5 fL (36.4-46.3); Red Blood Count 4.57 M/uL (4.2-5.4); White Blood Count 5.52 K/uL (4.8-10.8)
[2020-12-29] MEDS: HEPARIN SOD 5,000 UNIT/0.5 ML VIAL SQ SCH ×3 (06:09→22:15)
[2020-12-29 06:28] LABS: Basophils # (auto) 0.01 K/uL (0-0.2); Basophils % (auto) 0.2 %; Immature Granulocytes # (auto) 0.06 K/uL (0.00-0.02); Immature Granulocytes % (auto) 1.1 %; Lymphocytes % (auto) 14.5 %; Monocytes # (auto) 0.32 K/uL (0.11-0.59); Monocytes % (auto) 5.8 %; Neutrophils # (auto) 4.33 K/uL (1.4-6.5); Neutrophils % (auto) 78.4 %
[2020-12-29 06:42] LABS: Albumin Level 2.5 gm/dl (3.4-5.0); BUN Creatinine Ratio 20.7 (10-20); Calcium 8.3 mg/dl (8.5-10.1); Creatinine Clr Calc Pharmacy 64.7 ml/min; Est GFR (African American) 71.2; Est GFR (Non-African American) 61.4; Potassium 4.6 mmol/L (3.5-5.1)
[2020-12-29 06:50] LABS: Albumin Globulin Ratio 0.6 (0.9-2); Bilirubin,Total 0.4 mg/dl (0.2-1); Ferritin 197.5 ng/ml (8-388); Globulin 4.5 gm/dl (2.5-4.0)
[2020-12-29] MEDS: LEVALBUTEROL TARTRATE 15 GM HFA.AER.AD INH SCH ×4 (07:43→18:51)
[2020-12-29] MEDS: MONTELUKAST SODIUM 10 MG TABLET PO SCH (08:13)
[2020-12-29] MEDS: ASPIRIN 81 MG ECTAB PO SCH (08:13)
[2020-12-29] MEDS: guaiFENesin 600 MG TABCR PO SCH ×2 (08:13→20:51)
[2020-12-29] MEDS: FENOFIBRATE NANOCRYSTALLIZED 145 MG TABLET PO SCH (08:13)
[2020-12-29] MEDS: allopurinoL 100 MG TAB PO SCH (08:13)
[2020-12-29] MEDS: ATORVASTATIN 20 MG TAB PO SCH (08:14)
[2020-12-29] MEDS ORDERED: ACETAMINOPHEN 325 MG TAB PO ONE (08:19)
[2020-12-29] MEDS: INSULIN ASPART 100 UNITS/ML 3 ML PEN SC SCH ×4 (08:44→20:18)
[2020-12-29] MEDS: INSULIN GLARGINE SOLOSTAR 100 UNITS/ML 3 ML PEN SQ SCH (08:44)
[2020-12-29] MEDS ORDERED: PHARMACY GLYCEMIC MGMT CONSULT PRN (08:58)
[2020-12-29] MEDS ORDERED: dexAMETHasone 6 MG in SYRINGE 0 ML IV SCH (09:00)
--- NOTE | 2020-12-29 12:35 | Pharmacy Report ---
Pharmacy Glycemic Short Note 2 - Date of Service December 29, 2020 - Glycemic Short BSG Results (Last 24 hours): 12/28/20 12/28/20 12/29/20 18:16 22:53 05:29 Glucose 193 H 207 H POC Glucose 253 H 12/29/20 12/29/20 08:06 12:01 Glucose POC Glucose 192 H 153 H OUTPATIENT ANTIDIABETIC REGIMEN: * Levemir 24 units daily * Metformin * Empagliflozin * Dulaglutide * HbA1c ordered for 12/30/20 ASSESSMENT: * 55 yo F with T2DM admitted 12/28 for acute resp failure 2nd COVID, asthma. Currently NPO, on BiPAP, and receiving dexamethasone * BSG's persistently >180 mg/dL x4 thus far, likely 2nd insufficient basal insulin and correction factor. Will tighten PLAN FOR INPATIENT GLYCEMIC CONTROL: * Hold outpatient oral diabetes medications * Basal insulin - increase * Lantus 15 units SQ BID - reduce to 10 units if BSG < 140 mg/dL or 5 units if BSG < 100 mg/dL * Bolus insulin - tighten * NovoLog per scale ACHS or Q6hrs while NPO * Goal Range: Low 110 mg/dL - High 140 mg/dL * Correction Factor: 20 mg/dL/unit * Nutritional / Prandial insulin per carb ratio of 1 unit per 8 grams CHO consumed
--- NOTE | 2020-12-29 15:07 | Electrocardiogram Report ---
Test Reason : Blood Pressure : / mmHG Vent. Rate : 118 BPM Atrial Rate : 118 BPM P-R Int : 120 ms QRS Dur : 076 ms QT Int : 332 ms P-R-T Axes : 017 072 022 degrees QTc Int : 465 ms Sinus tachycardia Possible Left atrial enlargement Low voltage QRS Septal infarct , age undetermined Abnormal ECG When compared with ECG of 03-APR-2017 06:39, Vent. rate has increased BY 51 BPM Septal infarct is now Present Confirmed by Patrick Augustine ([id number]) on 12/29/2020 3:06:38 PM Referred By: REFERRED SELF Confirmed By:Patrick Augustine
--- NOTE | 2020-12-29 17:52 | Hospitalist Progress Note ---
Date of Service December 29, 2020 Assessment & Plan (1) Acute hypoxemic respiratory failure: Secondary to asthma exacerbation secondary to severe COVID-19 pneumonia -- CXR: Multifocal bilateral airspace opacities. This likely represents a viral pneumonia. Recommend follow-up to ensure resolution. -- was on high flow O2 back to [place] in the evening -- continue Decadron, Remdesivir Plasma ordered -- Heparin q8h Incentive spirometry, Flutter Valve -- will consult Pulmonology Hypertension -- improving ARF secondary to illness -- resolved Diarrhea secondary to illness rule out C. difficile -- resolved hyperlipidemia on statin Rx DM2 insulin requiring, suboptimal control asked off recent outpatient hemoglobin A1c of 12.28 November 2020 -- Glycemic pharmacy consult DVT prophylaxis. Heparin subcu Full code Admission and Anticipated Discharge Date Admission Date: December 28, 2020 Subjective ff up for respiratory failure, PNA seen resting in bed, on high flow 02 not in distress comfortable states her breathing is improved today compared to yesterday still has dry cough no chest pain, palpitations, dizziness, nausea, abdominal pain no other symptoms Review of Systems Review of Systems: All systems reviewed & are unremarkable except as noted in Subjective Physical Exam Physical Exam: General- oriented x 3, not in distress, speaks in sentences with no effort or accessory muscle use Head- atraumatic Eyes- PERRL, EOMI, anicteric ENT- oropharynx clear Neck- supple, no JVD, no adenopathy, no thyromegaly; carotids +2/2, no bruits appreciated Lungs- (+) rhonchi at the mid-base no wheezing good air entry BL Heart- normal rate, regular rhythm; no murmur, no gallop, no rub appreciated Abdomen- normal bowel sounds, nondistended, soft, nontender, no masses or hepatosplenomegaly Extremities- no pretibial edema, no calf tenderness; peripheral pulses intact Neuro- alert, oriented x 3; CN 2-12 grossly intact; motor 5/5 bilaterally;sensation 100% on all extremities; no other gross focal neurologic deficits Skin- warm & dry Results & Data Results & Data ([facility]) Vital Signs (Past 12 Hours) Vital Signs Temp Pulse Pulse Resp BP Pulse Ox 12/29/20 17:02 100 H 12/29/20 16:06 94 12/29/20 15:20 120 H 24 88 L 12/29/20 13:25 104 H 26 H 87 L 12/29/20 12:00 36.8 C 123 H 22 118/75 90 12/29/20 11:40 160 H 24 90 12/29/20 08:00 95 H 12/29/20 07:52 36.8 C 104 H 20 122/75 96 12/29/20 07:47 170 H 30 H 95 all noted and reviewed including below Laboratory Results Laboratory Results - last 24 hr 12/28/20 12/28/20 12/28/20 18:16 18:16 18:16 WBC 6.77 RBC 4.77 Hgb 12.5 Hct 39.5 MCV 82.8 MCH 26.2 MCHC 31.6 L RDW Std Deviation 42.2 RDW Coeff of Mynor 14.0 Plt Count 237 MPV 10.2 Immature Gran % (Auto) 0.7 Neut % (Auto) 73.5 Lymph % (Auto) 16.5 [place] % (Auto) 8.7 Eos % (Auto) 0.3 Baso % (Auto) 0.3 Neut # (Auto) 4.97 Lymph # (Auto) 1.[address] # (Auto) 0.59 Eos # (Auto) 0.02 Baso # (Auto) 0.02 Immature Gran # (Auto) 0.05 H PT 10.5 INR 1.0 APTT 27.7 PTT Ratio 1.1 D-Dimer 590 H* ABG pH ABG pCO2 ABG pO2 ABG HCO3 ABG O2 Saturation ABG Base Excess Víctor Test Barometric Pressure Oxygen Given Sodium 142 Potassium 4.6 Chloride 111 H Carbon Dioxide 26 Anion Gap 5.0 BUN 17 Creatinine 1.39 H Est Cr Clr Drug Dosing 46.4 Est GFR ( Amer) 49.0 Est GFR (Non-Af Amer) 42.3 BUN/Creatinine Ratio 11.9 Glucose 193 H POC Glucose Lactate Calcium 8.8 Magnesium 2.4 Ferritin Total Bilirubin 0.3 AST 32 ALT 19 Alkaline Phosphatase 82 Troponin I < 0.015 C-Reactive Protein 24.00 H Total Protein 7.8 Albumin 2.8 L Globulin 5.0 H Albumin/Globulin Ratio 0.6 L Procalcitonin Urine Color Urine Appearance Urine pH Ur Specific [place] Urine Protein Urine Glucose (UA) Urine Ketones Urine Blood Urine Nitrite Urine Bilirubin Urine Urobilinogen Ur Leukocyte Esterase Urine WBC (Auto) Urine RBC (Auto) U Hyaline Cast (Auto) U Epithel Cells (Auto) Urine Bacteria (Auto) COVID-19 Eval Order SARS-CoV-2 (PCR) Influenza Type A (PCR) Influenza Type B (PCR) RSV (RT-PCR) Blood Type Antibody Screen 12/28/20 12/28/20 12/28/20 18:16 18:16 18:19 WBC RBC Hgb Hct MCV MCH MCHC RDW Std Deviation RDW Coeff of Mynor Plt Count MPV Immature Gran % (Auto) Neut % (Auto) Lymph % (Auto) [place] % (Auto) Eos % (Auto) Baso % (Auto) Neut # (Auto) Lymph # (Auto) [place] # (Auto) Eos # (Auto) Baso # (Auto) Immature Gran # (Auto) PT INR APTT PTT Ratio D-Dimer ABG pH ABG pCO2 ABG pO2 ABG HCO3 ABG O2 Saturation ABG Base Excess Víctor Test Barometric Pressure Oxygen Given Sodium Potassium Chloride Carbon Dioxide Anion Gap BUN Creatinine Est Cr Clr Drug Dosing Est GFR ( Amer) Est GFR (Non-Af Amer) BUN/Creatinine Ratio Glucose POC Glucose Lactate 2.6 H* Calcium Magnesium Ferritin Total Bilirubin AST ALT Alkaline Phosphatase Troponin I C-Reactive Protein Total Protein Albumin Globulin Albumin/Globulin Ratio Procalcitonin 0.41 Urine Color Urine Appearance Urine pH Ur Specific [place] Urine Protein Urine Glucose (UA) Urine Ketones Urine Blood Urine Nitrite Urine Bilirubin Urine Urobilinogen Ur Leukocyte Esterase Urine WBC (Auto) Urine RBC (Auto) U Hyaline Cast (Auto) U Epithel Cells (Auto) Urine Bacteria (Auto) COVID-19 Eval Order SARS-CoV-2 (PCR) Influenza Type A (PCR) Influenza Type B (PCR) RSV (RT-PCR) Blood Type A Positive Antibody Screen NEGATIVE 12/28/20 12/28/20 12/28/20 18:20 18:20 20:06 WBC RBC Hgb Hct MCV MCH MCHC RDW Std Deviation RDW Coeff of Mynor Plt Count MPV Immature Gran % (Auto) Neut % (Auto) Lymph % (Auto) [place] % (Auto) Eos % (Auto) Baso % (Auto) Neut # (Auto) Lymph # (Auto) [place] # (Auto) Eos # (Auto) Baso # (Auto) Immature Gran # (Auto) PT INR APTT PTT Ratio D-Dimer ABG pH ABG pCO2 ABG pO2 ABG HCO3 ABG O2 Saturation ABG Base Excess Víctor Test Barometric Pressure Oxygen Given Sodium Potassium Chloride Carbon Dioxide Anion Gap BUN Creatinine Est Cr Clr Drug Dosing Est GFR ( Amer) Est GFR (Non-Af Amer) BUN/Creatinine Ratio Glucose POC Glucose Lactate 0.8 Calcium Magnesium Ferritin Total Bilirubin AST ALT Alkaline Phosphatase Troponin I C-Reactive Protein Total Protein Albumin Globulin Albumin/Globulin Ratio Procalcitonin Urine Color Urine Appearance Urine pH Ur Specific [place] Urine Protein Urine Glucose (UA) Urine Ketones Urine Blood Urine Nitrite Urine Bilirubin Urine Urobilinogen Ur Leukocyte Esterase Urine WBC (Auto) Urine RBC (Auto) U Hyaline Cast (Auto) U Epithel Cells (Auto) Urine Bacteria (Auto) COVID-19 Eval Order CovFluRsv at [facility] SARS-CoV-2 (PCR) POSITIVE A* Influenza Type A (PCR) Negative Influenza Type B (PCR) Negative RSV (RT-PCR) Negative Blood Type Antibody Screen 12/28/20 12/28/20 12/28/20 20:39 22:00 22:53 WBC RBC Hgb Hct MCV MCH MCHC RDW Std Deviation RDW Coeff of Mynor Plt Count MPV Immature Gran % (Auto) Neut % (Auto) Lymph % (Auto) [place] % (Auto) Eos % (Auto) Baso % (Auto) Neut # (Auto) Lymph # (Auto) [place] # (Auto) Eos # (Auto) Baso # (Auto) Immature Gran # (Auto) PT INR APTT PTT Ratio D-Dimer ABG pH 7.40 ABG pCO2 38 ABG pO2 63 L ABG HCO3 24 ABG O2 Saturation 93.0 ABG Base Excess -1.0 Víctor Test POS Barometric Pressure 738.4 Oxygen Given 40% Sodium Potassium Chloride Carbon Dioxide Anion Gap BUN Creatinine Est Cr Clr Drug Dosing Est GFR ( Amer) Est GFR (Non-Af Amer) BUN/Creatinine Ratio Glucose POC Glucose 253 H Lactate Calcium Magnesium Ferritin Total Bilirubin AST ALT Alkaline Phosphatase Troponin I C-Reactive Protein Total Protein Albumin Globulin Albumin/Globulin Ratio Procalcitonin Urine Color Yellow Urine Appearance Cloudy A Urine pH 5.5 Ur Specific [place] 1.038 H Urine Protein 2+ H Urine Glucose (UA) 3+ H Urine Ketones Trace H Urine Blood 1+ H Urine Nitrite Negative Urine Bilirubin Negative Urine Urobilinogen Negative Ur Leukocyte Esterase Negative Urine WBC (Auto) 10-30 H Urine RBC (Auto) 0-4 U Hyaline Cast (Auto) 0 U Epithel Cells (Auto) 0-5 Urine Bacteria (Auto) 4+ H COVID-19 Eval Order SARS-CoV-2 (PCR) Influenza Type A (PCR) Influenza Type B (PCR) RSV (RT-PCR) Blood Type Antibody Screen 12/29/20 12/29/20 12/29/20 05:29 05:29 08:06 WBC 5.52 RBC 4.57 Hgb 12.0 Hct 38.2 MCV 83.6 MCH 26.3 MCHC 31.4 L RDW Std Deviation 42.5 RDW Coeff of Mynor 14.1 Plt Count 245 MPV 10.5 H Immature Gran % (Auto) 1.1 Neut % (Auto) 78.4 Lymph % (Auto) 14.5 [place] % (Auto) 5.8 Eos % (Auto) 0.0 Baso % (Auto) 0.2 Neut # (Auto) 4.33 Lymph # (Auto) 0.[address] [place] # (Auto) 0.32 Eos # (Auto) 0.00 Baso # (Auto) 0.01 Immature Gran # (Auto) 0.06 H PT INR APTT PTT Ratio D-Dimer ABG pH ABG pCO2 ABG pO2 ABG HCO3 ABG O2 Saturation ABG Base Excess Víctor Test Barometric Pressure Oxygen Given Sodium 144 Potassium 4.6 Chloride 113 H Carbon Dioxide 24 Anion Gap 7.0 BUN 21 H Creatinine 1.02 Est Cr Clr Drug Dosing 64.7 Est GFR ( Amer) 71.2 Est GFR (Non-Af Amer) 61.4 BUN/Creatinine Ratio 20.7 H Glucose 207 H POC Glucose 192 H Lactate Calcium 8.3 L Magnesium Ferritin 197.5 Total Bilirubin 0.4 AST 28 ALT 17 Alkaline Phosphatase 73 Troponin I C-Reactive Protein 24.00 H Total Protein 7.0 Albumin 2.5 L Globulin 4.5 H Albumin/Globulin Ratio 0.6 L Procalcitonin Urine Color Urine Appearance Urine pH Ur Specific [place] Urine Protein Urine Glucose (UA) Urine Ketones Urine Blood Urine Nitrite Urine Bilirubin Urine Urobilinogen Ur Leukocyte Esterase Urine WBC (Auto) Urine RBC (Auto) U Hyaline Cast (Auto) U Epithel Cells (Auto) Urine Bacteria (Auto) COVID-19 Eval Order SARS-CoV-2 (PCR) Influenza Type A (PCR) Influenza Type B (PCR) RSV (RT-PCR) Blood Type Antibody Screen 12/29/20 12/29/20 12:01 16:29 WBC RBC Hgb Hct MCV MCH MCHC RDW Std Deviation RDW Coeff of Mynor Plt Count MPV Immature Gran % (Auto) Neut % (Auto) Lymph % (Auto) [place] % (Auto) Eos % (Auto) Baso % (Auto) Neut # (Auto) Lymph # (Auto) [place] # (Auto) Eos # (Auto) Baso # (Auto) Immature Gran # (Auto) PT INR APTT PTT Ratio D-Dimer ABG pH ABG pCO2 ABG pO2 ABG HCO3 ABG O2 Saturation ABG Base Excess Víctor Test Barometric Pressure Oxygen Given Sodium Potassium Chloride Carbon Dioxide Anion Gap BUN Creatinine Est Cr Clr Drug Dosing Est GFR ( Amer) Est GFR (Non-Af Amer) BUN/Creatinine Ratio Glucose POC Glucose 153 H 189 H Lactate Calcium Magnesium Ferritin Total Bilirubin AST ALT Alkaline Phosphatase Troponin I C-Reactive Protein Total Protein Albumin Globulin Albumin/Globulin Ratio Procalcitonin Urine Color Urine Appearance Urine pH Ur Specific [place] Urine Protein Urine Glucose (UA) Urine Ketones Urine Blood Urine Nitrite Urine Bilirubin Urine Urobilinogen Ur Leukocyte Esterase Urine WBC (Auto) Urine RBC (Auto) U Hyaline Cast (Auto) U Epithel Cells (Auto) Urine Bacteria (Auto) COVID-19 Eval Order SARS-CoV-2 (PCR) Influenza Type A (PCR) Influenza Type B (PCR) RSV (RT-PCR) Blood Type Antibody Screen
[2020-12-29] MEDS ORDERED: FUROSEMIDE 20 MG in SYRINGE 0 ML IV ONE (19:00)
[2020-12-29] MEDS: FLUTICASONE FUROATE 200MCG 14 PUFFS/INHALER INH SCH (19:37)
[2020-12-29] MEDS ORDERED: REMDESIVIR 100 MG in SODIUM CHLORIDE 0.9% 230 ML IV SCH (20:00)
[2020-12-29] MEDS: BENZONATATE 100 MG CAPSULE PO PRN (20:02)
[2020-12-29] MEDS ORDERED: INSULIN GLARGINE SOLOSTAR 100 UNITS/ML 3 ML PEN SQ SCH (21:00)
[2020-12-30] MEDS: INSULIN ASPART 100 UNITS/ML 3 ML PEN SC SCH ×7 (00:05→23:57)
[2020-12-30] MEDS: LEVALBUTEROL TARTRATE 15 GM HFA.AER.AD INH SCH ×2 (00:40→07:43)
[2020-12-30] MEDS: HEPARIN SOD 5,000 UNIT/0.5 ML VIAL SQ SCH ×3 (05:05→21:57)
[2020-12-30] MEDS: LEVOTHYROXINE SODIUM 25 MCG TABLET PO SCH (05:06)
[2020-12-30 07:11] LABS: Estimated Average Glucose 301 mg/dl; Hemoglobin A1C 12.1 % (4.5-5.6)
[2020-12-30] MEDS: fentaNYL DRIP 1,250 MCG/250 ML BAG IV SCH (08:00)
[2020-12-30] MEDS: Standard Conc 16mcg/mL; 8mg in 500mL IV SCH (08:00)
[2020-12-30] MEDS ORDERED: RAPID SEQUENCE INDUCTION BAG ONE (08:07)
[2020-12-30] MEDS ORDERED: PROPOFOL IV EMULSION 10 MG/ML 100 ML VIAL IV ONE ×2 (08:34→12:02)
[2020-12-30 08:59] LABS: Basophils # (auto) 0.02 K/uL (0-0.2); Basophils % (auto) 0.2 %; Hematocrit (blood only) 41.1 % (37-47); Hemoglobin 12.9 g/dL (12.0-16.0); Immature Granulocytes # (auto) 0.07 K/uL (0.00-0.02); Immature Granulocytes % (auto) 0.8 %; Lymphocytes # (auto) 1.36 K/uL (1.2-3.4); Lymphocytes % (auto) 15.8 %; Mean Corpuscular Hemoglobin 26.1 pg (25-34); Mean Corpuscular Hgb Conc 31.4 g/dL (32-36); Mean Corpuscular Volume 83.2 fL (80-100); Mean Platelet Volume 10.5 fL (7.4-10.4); Monocytes # (auto) 0.49 K/uL (0.11-0.59); Monocytes % (auto) 5.7 %; Neutrophils # (auto) 6.69 K/uL (1.4-6.5); Neutrophils % (auto) 77.5 %; Platelet Count 300 K/uL (130-400); RDW Coefficient of Variation 14.2 % (11.5-14.5); RDW Standard Deviation 43.1 fL (36.4-46.3); Red Blood Count 4.94 M/uL (4.2-5.4); White Blood Count 8.63 K/uL (4.8-10.8)
[2020-12-30] MEDS ORDERED: INSULIN GLARGINE SOLOSTAR 100 UNITS/ML 3 ML PEN SQ SCH (09:00)
[2020-12-30] MEDS: MIDAZOLAM HCL 125 MG/250 ML BAG IV SCH (09:00)
[2020-12-30] MEDS: CISATRACURIUM BESYLATE 40 MG in 0.9 % SODIUM CHLORIDE 80 ML IV SCH ×3 (09:00→20:31)
[2020-12-30] MEDS: INSULIN HUMAN NPH SC SCH (09:00)
[2020-12-30] MEDS: dexAMETHasone 6 MG in SYRINGE 0 ML IV SCH (09:00)
[2020-12-30 09:05] LABS: Albumin Level 2.6 gm/dl (3.4-5.0); BUN Creatinine Ratio 34.8 (10-20); Calcium 9.3 mg/dl (8.5-10.1); Creatinine Clr Calc Pharmacy 60.9 ml/min; Est GFR (African American) 67.2; Potassium 5.1 mmol/L (3.5-5.1)
[2020-12-30] MEDS ORDERED: STAT IV Infusion **Titration per Protocol STA ×2 (09:06→14:10)
[2020-12-30 09:10] LABS: Albumin Globulin Ratio 0.5 (0.9-2); Bilirubin,Total 0.3 mg/dl (0.2-1); Ferritin 254.1 ng/ml (8-388); Total Protein 7.6 gm/dl (6.4-8.2)
[2020-12-30] MEDS ORDERED: CISATRACURIUM BOLUS FROM BAG IV ONE (09:15)
--- NOTE | 2020-12-30 10:24 | XRay Report ---
XR chest 1V portable CLINICAL HISTORY: OG and central intubation COMPARISON STUDY: Respiratory failure FINDINGS: There has been interval placement of an endotracheal tube positioned 25 mm above the natasha . There is an enteric tube which passes into the stomach. There is a left subclavian central venous c atheter which is looped back upon itself.. The tip terminates at the level the left T4 pedicle. No pn eumothorax is visualized. There are bilateral pulmonary airspace opacities.[ IMPRESSION: 1. Bilateral pulmonary airspace opacities consistent with a multifocal pneumonia 2. Interval placement of an enteric tube which passes into the stomach 3. Interval placement of endotracheal tube 26 mm above the natasha 4. Interval placement of a left subclavian central venous catheter which is looped back upon itself. 5. No pneumothorax ACT 112: Negative or not required by law. Electronically signed by: Ruel Barnett M.D. 12/30/2020 10:23 AM
[2020-12-30 10:42] LABS: D Dimer 1220 ug/L FEU (0-500)
[2020-12-30 10:47] LABS: iSTAT Arterial Blood Gas HCO3 24 meg/L (19-24); iSTAT Arterial Blood Gas pCO2 47 mmHg (35-46); iSTAT Arterial Blood Gas pH 7.32 (7.35-7.45); iSTAT Arterial Blood Gas pO2 72 mmHg (80-95); iSTAT Carbon Dioxide 25 mmol/L (24-31); iSTAT FiO2 100 %
[2020-12-30 10:48] LABS: Patient Temperature 36.9; iSTAT Allen Test Not Performed; iSTAT Sample Type Arterial; iSTAT Site L Radial
--- NOTE | 2020-12-30 11:55 | XRay Report ---
XR chest 1V portable HISTORY: central line placement COMPARISON: Chest 12/30/2020. FINDINGS: The endotracheal tube terminates 2.8 cm of the natasha. Nasogastric tube terminus below the diaphragm. The tip is not included on this study. There is a left subclavian central venous catheter which is looped within the brachiocephalic vein. This is unchanged. There has been interval placement left jugular central venous catheter which terminates in the SVC. No pneumothorax. No pleural effusi ons. Patchy bilateral airspace opacities persist. The heart remains normal in size. IMPRESSION: 1. No change in the bilateral airspace opacities consistent with a multifocal pneumonia. 2. Interval placement left jugular central venous catheter which terminates in the distal SVC. No pne umothorax. 3. Endotracheal tube terminates 2.9 cm from the natasha. 4. No change in the left subclavian central venous catheter which is looped within the brachiocephali c vein. ACT 112: Negative or not required by law. Electronically signed by: Abiodun Fernandez M.D. 12/30/2020 11:54 AM
--- NOTE | 2020-12-30 12:41 | Critical Care Consultation ---
Date of Consultation December 30, 2020 Assessment & Plan (1) Pneumonia due to COVID-19 virus: (2) Acute hypoxemic respiratory failure: (3) Diabetes: Impression: 55-year-old female with poorly controlled diabetes and reported asthma with COVID-19 pneumonia and hypoxemic respiratory failure ref ractory to noninvasive ventilation and high flow oxygen. Decision was made to intubate the patient which was conducted today. See separate procedure notes. Recommendations: 1. Neurologic: We will continue aggressive sedation as well as neuromuscular paralysis. Initiated on fentanyl, Versed, and propofol as well as Nimbex. Will maintain RASS of -3 to -4. 2. Cardiovascular: The patient is hypotensive currently likely due to the large amounts of sedatives required to facilitate tolerating ventilator strategy. Levophed has been initiated. We will continue to trend acid-base status and la ctate. 3. Pulmonary: Acute hypoxemic respiratory failure secondary to COVID-19 pneumonia: Continue dexamethasone. Per NIH guidelines, will discontinue remdesivir at this point in time as it is not recommended. Arginate ventilatory strategy. Tocilizumab not available at this institution in her CRP is not markedly elevated. If we are unable to meet oxygenation goals, may consider contacting [facility] for consideration of VV ECMO. Will observe for signs of secondary infection. 4. ID: COVID-19 pneumonia: Continue remdesivir. Will obtain culture data. Procalcitonin was not markedly elevated so no indication for antibiotics currently. 5. GI: Enteric access will be obtained. Will discuss with nutrition and consider initiation of trophic tube feedings within the next 12 to 24 hours. Follow labs. 6. Renal: Renal function normal. Monitor urine output. Electrolytes and acid- base status are acceptable. 7. Endocrine: History of diabetes. Will need to follow blood sugars closely and have a low threshold for institution of IV insulin therapy. 8. Heme-onc: No current issues. Continue to trend. The patient is critically ill at this point in time. A total of 145 minutes of critical care time evaluating managing and stabilizing this patient exclusive of procedures. She has life-threatening illness and is at risk for decompensation and History of Present Illness Attending Physician: Adam Lao MD History of Present Illness Asked by hospitalist to assist in management this patient admitted with hypoxemic respiratory failure secondary to COVID-19 pneumonia. History is obtained from review electronic medical record as well as discussion with the patient. Patient is a 55-year-old female with a history of asthma hypertension hyperlipidemia and diabetes who was seen in the emergency room 12/28/2020. She reported a 5-day history of body aches and flulike's illness as well as diarrhea. She had cough and shortness of breath. She had a test on 12/26/2020 which was positive. The patient was noted to be hypoxemic in the emergency room. She received Decadron and was initiated on bilevel. Unfortunately the p atient's status continued to decline and she had oxygen saturations in the mid to low 80% range on high flow as well as BiPAP and pulmonary was asked for additional management. I evaluated the patient on the floor. She was tachypneic with oxygen saturations in the 70 to 80% range. I advised her that we have exhausted all noninvasive measures and I recommended intubation mechanical ventilation. The patient was in agreement. I also recommended central line and arterial line and the patient was able to provide verbal consent for these. She was intubated and lines were placed. See separate procedure notes. She was proned. Oxygenation did improve transiently with proning. We did have to initiate Levophed for maintenance of blood pressure. Allergies Allergy/AdvReac Type Severity Reaction Status Date / Time lisinopril Allergy Unknown Unknown Verified 12/28/20 18:37 meperidine Allergy Unknown Hives Verified 12/28/20 18:36 Penicillins Allergy Unknown Could not Verified 12/28/20 18:37 use arm after shot Home Medications Medication Instructions Recorded Confirmed Type albuterol sulfate 2 puff INHALATION .Q4-6HRS PRN 12/28/20 12/28/20 History albuterol sulfate 2.5 mg INHALATION Q4H PRN 12/28/20 12/28/20 History allopurinol 100 mg PO DAILY 12/28/20 12/28/20 History aspirin 81 mg PO DAILY 12/28/20 12/28/20 History atorvastatin 20 mg PO QAM 12/28/20 12/28/20 History dulaglutide [Trulicity] 0.75 mg SUBCUT WK 12/28/20 12/28/20 History empagliflozin [Jardiance] 25 mg PO DAILY 12/28/20 12/28/20 History fenofibrate micronized 200 mg PO DAILY 12/28/20 12/28/20 History fluticasone propionate [Flovent 2 puff INHALATION BID 12/28/20 12/28/20 History HFA] insulin detemir U-100 [Levemir 24 unit SUBCUT DAILY 12/28/20 12/28/20 History FlexTouch U-100 Insuln] levothyroxine 25 mcg PO QAM 12/28/20 12/28/20 History metformin 1,000 mg PO BIDM 12/28/20 12/28/20 History montelukast 10 mg PO DAILY 12/28/20 12/28/20 History triamcinolone acetonide 1 applic TOPICAL BID 12/28/20 12/28/20 History Patient History Social History Smoking Status: Never smoker Hx Alcohol Use: No Hx Substance Use: No Preferred Language: Mexican Communication Ability: Effective 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 Beliefs That Will Affect Care: None Current Living Situation: Spouse Other Information That Helps Us Care for You: No Feels Safe at Home: Yes Safety Concerns: Feels Safe At This Time Assistive Devices: Oxygen - Continuous Review of Systems Review of Systems: See admission H&P Physical Exam Constitutional: + acute distress, + ill appearing, + obese and + in distress Neck: trachea midline, no thyromegaly Respiratory: + respiratory distress, + labored breathing and + cough Auscu ltation: + crackles and + rales Cardiovascular: RRR, no murmur, no edema Gastrointestinal (Abdomen): normal bowel sounds, soft, nontender, no hepatosplenomegaly Musculoskeletal: Extremities: extremities normal to inspection Skin: no rashes, warm and dry Neurologic: Nonfocal exam Lymphatic: no cervical lymphadenopathy Results & Data Results & Data ([facility]) Vital Signs (Past 12 Hours) Vital Signs Temp Pulse Pulse Resp BP BP Pulse Ox 12/30/20 12:17 97 H 27 H 93 12/30/20 08:56 97 H 27 H 93 12/30/20 07:49 103 H 32 H 88 L 12/30/20 07:44 118 H 32 H 88 L 12/30/20 07:06 89 12/30/20 04:44 36.9 C 190 H 24 135/81 89 L 12/30/20 03:20 117 H 28 H 93 12/30/20 01:42 36.8 C 89 21 122/81 95 03/12/21 00:40 29 H 95 Laboratory Results 12/30/20 06:22 12/30/20 06:22 D-dimer 1220 Initial blood gas on presentation showed pH 7.4 with a PCO2 of 38 and PO2 of 63 on high flow oxygen. Hemoglobin A1c is elevated at 12 C-reactive protein of 13 Albumin 2.6 Procalcitonin 0.41 Diagnostic Findings Imaging studies independently reviewed Chest x-ray from 12/28/2020 demonstrated multifocal patchy airspace opacities wit h air bronchograms. There did appear to be slight elevation of the right hemidiaphragm. No significant pleural effusions identified. Coding Level of Care Code Critical Care 1st 30-74 mins Diagnoses Pneumonia due to COVID-19 virus U07.1; J12.82 Acute hypoxemic respiratory failure J96.01 Diabetes E11.9 Time Spent (min) 145 Comment [id number] and 9929 2x3
--- NOTE | 2020-12-30 12:45 | Procedure Note ---
Procedure Note Date of Service December 30, 2020 INTUBATION PROCEDURE NOTE: Provider: Ian Duvall MD A time-out was completed verifying correct patient, procedure, site, positioning. Patient was evaluated and required intubation for hypoxemic respiratory failure refractory to BiPAP and high flow oxygen. Sedative agent used: 40 mg of etomidate, 4 mg of Versed Paralysis agent used: 100 mg succinylcholine Verbal consent was obtained from the patient prior to the procedure. Due to the emergent nature of the procedure and the patient's clinical condition, written consent was not achievable. The patient was prepared in the appropriate fashion. Sedation was achieved utilizing etomidate, Versed, and succinylcholine. No [id number]-gsav was attempted and the patient was preoxygenated using Vapotherm. Video laryngoscopy was performed using a glide scope #3 scope. A grade 1 view was obtained and a 7.5 endotracheal tube was passed under direct visualization and secured at the teeth. Color capnography was confirmed as well as bilateral breath sounds and tube misting. The tube was secured in place. Chest x-ray confirmed appropriate placement. Patient did desaturate transiently down into the 70% range. Once she was reintubated, we were able to get her oxygen saturations up relatively quickly. Coding CPT Codes Resuscitation - Resuscitation: 02860 Endotracheal Intubation, emergency ([id number]) [facility] [place]odes (Charges) Resuscitation Resuscitation: 77050 Endotracheal Intubation, emergency
--- NOTE | 2020-12-30 12:47 | Procedure Note ---
Procedure Note Date of Service December 30, 2020 ARTERIAL LINE PROCEDURE NOTE: Procedure: Arterial Line Placement Provider: Ian Duvall MD Indication: Monitoring on Pressors Anesthesia: None Verbal consent was obtained to the patient prior to intubation. Again due to the gravity of her situation and emergent need for the procedure, written consent was not achievable A time-out was completed verifying correct patient, procedure, site, positioning, and implant(s) or special equipment if applicable. Allens test was performed to ensure adequate perfusion. We initially attempted placement on the right. I was able to access the artery but even under ultrasound visualization we were unable to thread the catheter.. Multiple attempts were made on the right side and then we elected to transition to the left side. Under ultrasound visualization, we were we are able to pass a 20-gauge catheter into the left radial artery. Arterial waveform was obtained. The catheter was secured in place and a sterile dressing applied. Patient tolerated the procedure well with minimal blood loss. This was a difficult procedure due to the patient being hypotensive and required multiple attempts. Please add modifier for complexity and difficult procedure Coding CPT Codes Tubes, Drains, and Vasc Access - Tubes, Drains, and Vasc Access: [id number] Place catheter in vein superior or inferior vena cava ([id number]) Tubes, Drains, and Vasc Access - Tubes, Drains, and Vasc Access: [id number] Ultrasound Guidance For Vascular ([id number]) [facility] [place] Procedure Codes (Charges) Tubes, Drains, and Vasc Access Procedure 1: Tubes, Drains, and Vasc Access: [id number] Place catheter in vein superior or inferior vena cava Procedure 2: Tubes, Drains, and Vasc Access: [id number] Ultrasound Guidance For Vascular
--- NOTE | 2020-12-30 12:50 | Procedure Note ---
Procedure Note Date of Service December 30, 2020 CENTRAL LINE PROCEDURE NOTE: Procedure: Central Line Placement Provider: Ian Duvall MD Indication: Central Drug Administration, Poor Venous Access, Multiple Lab Draws Necessary, etc. Anesthesia: 5 mL 1% lidocaine Site: Left subclavian Verbal consent was obtained to the patient prior to intubation. Due to severity of illness, written consent was not obtainable A time-out was completed verifying correct patient, procedure, site, positioning, and implants(s) or special equipment if applicable. Patients left sub-clavicular fossa was cleansed and draped in the typical sterile fashion using Chloraprep. The superficial tissue was anesthetized using 5 mL of 1% lidocaine without epinephrine. After adequate anesthetization was achieved, the subclavian vein was cannulated using an introducer needle on a syringe. Good venous blood return was maintained prior to removal of syringe from introducer needle. Using Seldinger Technique, a guide wire was advanced through the introducer needle without resistance. The introducer needle was removed. A small incision was made in penetrating fashion at the guide wire insertion site utilizing an 11 blade scalpel. The dilator was advanced to the vessel without resistance. The dilator was exchanged for the triple lumen catheter which was advanced into the vessel without resistance. The guide wire was removed intact from the catheter without issue. Claves were placed on each catheter tip with confirmation of good blood flow from each lumen. Each port was easily flushed with sterile saline. The catheter was placed at the hub and sutured in place. BioPatch was applied to the catheter and a sterile Tegaderm dressing was applied over the catheter with careful attention to sterility. Patient tolerated procedure well. No immediate complications were met. Post procedure x-ray was completed, and revealed the catheter to be looping back on itself within the brachiocephalic vein. Decision was made to replace the catheter and remove this catheter and replace it.. This catheter was never used. Were not saved to the ultrasound due to technical issues on the Covid unit Coding CPT Codes Tubes, Drains, and Vasc Access - Tubes, Drains, and Vasc Access: [id number] Place catheter in vein superior or inferior vena cava ([id number]) Tubes, Drains, and Vasc Access - Tubes, Drains, and Vasc Access: [id number] Ultrasound Guidance For Vascular ([id number]) [facility] [place] Procedure Codes (Charges) Tubes, Drains, and Vasc Access Procedure 1: Tubes, Drains, and Vasc Access: [id number] Place catheter in vein superior or inferior vena cava Procedure 2: Tubes, Drains, and Vasc Access: [id number] Ultrasound Guidance For Vascular
--- NOTE | 2020-12-30 12:52 | Procedure Note ---
Procedure Note Date of Service December 30, 2020 CENTRAL LINE PROCEDURE NOTE: Procedure: Central Line Placement Provider: Ian Duvall MD Indication: Central Drug Administration, Poor Venous Access, Multiple Lab Draws Necessary, etc. Anesthesia: None Site: Left IJ Patient given verbal consent previously prior to intubation A time-out was completed verifying correct patient, procedure, site, positioning, and implants(s) or special equipment if applicable. Patients left neck was cleansed and draped in the typical sterile fashion using Chloraprep. The Internal Jugular Vein and Carotid Artery were identified using ultrasound. The left internal jugular vein was identified on ultrasound and easily compressible. A site appropriate for catheterization was identified. Under direct ultrasound guidance, the left internal jugular vein was accessed using an 18-gauge needle. Using Seldinger Technique, a guide wire was advanced through the introducer needle without resistance. The introducer needle was removed and ultrasound images of the wire and the vein were observed. A small incision was made in penetrating fashion at the guide wire insertion site utilizing an 11 blade scalpel. The dilator was advanced to the vessel without resistance. The dilator was exchanged for the triple lumen catheter which was advanced into the vessel without resistance. The guide wire was removed intact from the catheter without issue. Claves were placed on each catheter tip with confirmation of good blood flow from each lumen. Each port was easily flushed with sterile saline. The catheter was placed at the hub cm and sutured in place. BioPatch was applied to the catheter and a sterile Tegaderm dressing was applied over the catheter with careful attention to sterility. Patient tolerated procedure well. No immediate complications were met. Post procedure x-ray was completed, placement was appropriate and no pneumothorax was noted. Images not saved in the medical record due to technical issues on the Covid unit Coding CPT Codes Tubes, Drains, and Vasc Access - Tubes, Drains, and Vasc Access: [id number] Place catheter in vein superior or inferior vena cava ([id number]) Tubes, Drains, and Vasc Access - Tubes, Drains, and Vasc Access: [id number] Ultrasound Guidance For Vascular ([id number]) [facility] [place] Codes (Charges) Tubes, Drains, and Vasc Access Procedure 1: Tubes, Drains, and Vasc Access: [id number] Place catheter in vein superior or inferior vena cava Procedure 2: Tubes, Drains, and Vasc Access: [id number] Ultrasound Guidance For Vascular
[2020-12-30] MEDS: ASPIRIN 81 MG ECTAB PO SCH (14:00)
[2020-12-30] MEDS: ATORVASTATIN 20 MG TAB PO SCH (14:01)
[2020-12-30] MEDS: allopurinoL 100 MG TAB PO SCH (14:02)
[2020-12-30] MEDS: MONTELUKAST SODIUM 10 MG TABLET PO SCH (14:08)
[2020-12-30] MEDS: guaiFENesin 600 MG TABCR PO SCH (14:08)
[2020-12-30] MEDS: FENOFIBRATE NANOCRYSTALLIZED 145 MG TABLET PO SCH (14:08)
[2020-12-30] MEDS ORDERED: PROPOFOL BOLUS FROM BAG IV PRN (14:10)
[2020-12-30] MEDS: propofoL 1,000 MG/100 ML VIAL IV SCH ×2 (14:17→22:15)
--- NOTE | 2020-12-30 14:40 | Pharmacy Report ---
Pharmacy Glycemic Short Note 2 - Date of Service December 30, 2020 - Glycemic Short BSG Results (Last 24 hours): 12/29/20 12/29/20 12/29/20 16:29 19:58 23:57 Glucose POC Glucose 189 H 163 H 169 H 12/30/20 12/30/20 12/30/20 04:34 06:22 07:52 Glucose 135 H POC Glucose 134 H 124 H OUTPATIENT ANTIDIABETIC REGIMEN: * Levemir 24 units daily * Metformin * Empagliflozin * Dulaglutide * HbA1c 12.1 % 12/30/20 ASSESSMENT: 12/30 * BSGs well controlled yesterday, however patient required intubation this AM and is now sedated, ventilated and requiring norepi for pressor support * AM doses of ordered NPH and Lantus were not given. Nor has BSG been checked since intubation * Will give basal insulin dose (Lantus alone) w/ 1600 BSG check - dose will be based upon last 24 hr requirement * Novolog will be dosed Q 4 hrs with CF and CR doses based upon "severe" stress level * Would recommend initiating IV insulin drip per protocol, goal range 120- 180mg/dL if BSG > 220 x 1 or greater than 180 x 2 12/29 * 55 yo F with T2DM admitted 12/28 for acute resp failure 2nd COVID, asthma. Currently NPO, on BiPAP, and receiving dexamethasone * BSG's persistently >180 mg/dL x4 thus far, likely 2nd insufficient basal insulin and correction factor. Will tighten PLAN FOR INPATIENT GLYCEMIC CONTROL: * Hold outpatient oral diabetes medications * Basal insulin - * Lantus 30 units SQ x 1 at 1600 today - then 20 units Q AM beginning 12/31 * NPH 20 units (0.25unit/kg) SQ daily w/ IV dexamethasone * Bolus insulin - * NovoLog per scale q 4 hrs * Goal Range: Low 110 mg/dL - High 140 mg/dL * Correction Factor: 20 mg/dL/unit * Nutritional / Prandial insulin per carb ratio of 1 unit per 7 grams CHO consumed
[2020-12-30] MEDS ORDERED: INSULIN GLARGINE SOLOSTAR 100 UNITS/ML 3 ML PEN SQ ONE (16:00)
[2020-12-30] MEDS: cefTRIAXone SODIUM 1,000 MG in DEXTROSE 5% 50 ML IV SCH (16:49)
--- NOTE | 2020-12-30 18:20 | Hospitalist Progress Note ---
Date of Service December 30, 2020 Assessment & Plan (1) Acute hypoxemic respiratory failure: Secondary to asthma exacerbation secondary to severe COVID-19 pneumonia -- CXR: Multifocal bilateral airspace opacities. This likely represents a viral pneumonia. Recommend follow-up to ensure resolution. -- was on high flow O2 still desaturating this AM, s/p mechanical intubation -- currently sedated prone positioning in progress -- continue Decadron, Remdesivir Plasma ordered, scheduled to arrive at 11pm -- Heparin q8h -- Ceftriaxone IV Day 1 Hypertension -- monitor ARF secondary to illness -- resolved Diarrhea secondary to illness rule out C. difficile -- resolved hyperlipidemia on statin Rx DM2 insulin requiring, suboptimal control asked off recent outpatient hemoglobin A1c of 12.28 November 2020 -- Glycemic pharmacy consult DVT prophylaxis. Heparin subcu Full code plan of care discussed with patient's daughter and in detail and at length all questions answered they are understanding, agreeable, comfortable with the plan of care Admission and Anticipated Discharge Date Admission Date: December 28, 2020 Subjective ff up for acute respiratory failure, COVID 19 pneumonia intubated this morning due to persistent desaturation on high flow o2, bipap discussed case with EMMANUEL Lo seen and examined patient intubated, sedated, on prone position not in distress no signs of pain no other issues per warp hand of Systems Review of Systems: Unobtainable due to cognitive status and Unobtainable due to endotracheal tube Physical Exam Physical Exam: General- sedated, breathing with no effort or accessory muscle use Eyes- anicteric Neck- no JVD Lungs- (+) crackles bilaterally Heart- normal rate, regular rhythm; no murmurs Abdomen- patient on prone position Extremities- no pretibial edema, no calf tenderness Neuro- sedated Skin- warm & dry Results & Data Results & Data ([facility]) Vital Signs (Past 12 Hours) Vital Signs Temp Pulse Pulse Resp BP Pulse Ox 12/30/20 15:30 37.8 C H 107 H 91 12/30/20 15:29 104 H 26 H 91 12/30/20 15:01 108 H 91 12/30/20 14:59 109 H 115/71 91 12/30/20 14:30 113 H 90 12/30/20 14:01 113 H 89 L 12/30/20 13:59 113 H 105/70 89 L 12/30/20 13:34 120 H 119/73 90 12/30/20 13:30 120 H 89 L 12/30/20 13:00 106 H 89 L 12/30/20 12:47 97 H 27 H 93 12/30/20 12:30 102 H 97 12/30/20 12:17 97 H 27 H 93 12/30/20 12:00 94 12/30/20 11:59 103 H 114/78 96 12/30/20 11:30 103 H 83 L 12/30/20 11:01 92 H 95 12/30/20 10:59 92 H 96/72 L 95 12/30/20 10:30 90 96 12/30/20 10:00 94 H 95 12/30/20 09:59 96 H 110/73 96 12/30/20 09:57 96 H 105/73 95 12/30/20 09:54 94 H 93/66 L 93 12/30/20 09:52 92 H 73/49 L 93 12/30/20 09:50 94 H 72/51 L 92 12/30/20 09:48 93 H 71/50 L 93 12/30/20 09:46 94 H 72/51 L 96 12/30/20 09:44 94 H 74/53 L 96 12/30/20 09:42 94 H 75/55 L 96 12/30/20 09:40 94 H 84/59 L 98 12/30/20 09:39 95 H 86/60 L 99 12/30/20 09:36 95 H 120/76 100 12/30/20 09:34 100 H 146/95 H 100 12/30/20 09:32 96 H 132/83 100 12/30/20 09:30 97 H 102/72 99 12/30/20 09:28 93 H 103/66 99 12/30/20 09:26 93 H 99/67 L 100 12/30/20 09:24 93 H 95/66 L 100 12/30/20 09:22 93 H 103/63 100 12/30/20 09:20 93 H 86/63 L 99 12/30/20 09:18 93 H 92/63 L 100 12/30/20 09:16 95 H 88/61 L 100 12/30/20 09:14 94 H 89/67 L 100 12/30/20 09:12 94 H 91/61 L 99 12/30/20 09:10 92 H 87/62 L 99 12/30/20 09:08 96 H 91/63 L 98 12/30/20 09:06 94 H 94/61 L 98 12/30/20 09:04 89 94/65 L 95 12/30/20 09:02 87 68/47 L 95 12/30/20 09:00 96 H 65/48 L 93 12/30/20 08:58 98 H 63/48 L 93 12/30/20 08:57 99 H 64/50 L 91 12/30/20 08:56 99 H 27 H 73/53 L 92 12/30/20 08:54 101 H 95/64 L 89 L 12/30/20 08:51 110 H 119/91 81 L 12/30/20 08:48 108 H 151/98 H 84 L 12/30/20 08:46 113 H 144/103 H 80 L 12/30/20 08:44 115 H 157/99 H 90 12/30/20 08:41 113 H 93 12/30/20 07:49 103 H 32 H 88 L 12/30/20 07:44 118 H 32 H 88 L 12/30/20 07:06 89 Laboratory Results Laboratory Results - last 24 hr 12/29/20 12/29/20 12/30/20 19:58 23:57 04:34 WBC RBC Hgb Hct MCV MCH MCHC RDW Std Deviation RDW Coeff of Mynor Plt Count MPV Immature Gran % (Auto) Neut % (Auto) Lymph % (Auto) Pope % (Auto) Eos % (Auto) Baso % (Auto) Neut # (Auto) Lymph # (Auto) Pope # (Auto) Eos # (Auto) Baso # (Auto) Immature Gran # (Auto) D-Dimer Specimen Type Sample Site Patient Temperature POC pH POC pCO2 POC pO2 POC HCO3 POC Total CO2 POC Base Excess Víctor Test O2 Delivery Device POC O2 Rate Minute Ventilation Vent Mode POC FiO2 Tidal Volume End Tidal CO2 PEEP Sodium Potassium Chloride Carbon Dioxide Anion Gap BUN Creatinine Est Cr Clr Drug Dosing Est GFR ( Amer) Est GFR (Non-Af Amer) BUN/Creatinine Ratio Glucose POC Glucose 163 H 169 H 134 H Estimat Average Glucose Hemoglobin A1c Calcium Ferritin Total Bilirubin AST ALT Alkaline Phosphatase C-Reactive Protein Total Protein Albumin Globulin Albumin/Globulin Ratio 12/30/20 12/30/20 12/30/20 06:08 06:22 06:22 WBC RBC Hgb Hct MCV MCH MCHC RDW Std Deviation RDW Coeff of Mynor Plt Count MPV Immature Gran % (Auto) Neut % (Auto) Lymph % (Auto) Pope % (Auto) Eos % (Auto) Baso % (Auto) Neut # (Auto) Lymph # (Auto) Pope # (Auto) Eos # (Auto) Baso # (Auto) Immature Gran # (Auto) D-Dimer Cancelled Specimen Type Sample Site Patient Temperature POC pH POC pCO2 POC pO2 POC HCO3 POC Total CO2 POC Base Excess Víctor Test O2 Delivery Device POC O2 Rate Minute Ventilation Vent Mode POC FiO2 Tidal Volume End Tidal CO2 PEEP Sodium 144 Potassium 5.1 Chloride 110 H Carbon Dioxide 28 Anion Gap 6.0 BUN 37 H D Creatinine 1.07 Est Cr Clr Drug Dosing 60.9 Est GFR ( Amer) 67.2 Est GFR (Non-Af Amer) 58.0 BUN/Creatinine Ratio 34.8 H Glucose 135 H POC Glucose Estimat Average Glucose 301 Hemoglobin A1c 12.1 H Calcium 9.3 Ferritin 254.1 Total Bilirubin 0.3 AST 32 ALT 20 Alkaline Phosphatase 85 C-Reactive Protein 13.00 H Total Protein 7.6 Albumin 2.6 L Globulin 5.0 H Albumin/Globulin Ratio 0.5 L 12/30/20 12/30/20 12/30/20 06:22 07:52 10:06 WBC 8.63 RBC 4.94 Hgb 12.9 Hct 41.1 MCV 83.2 MCH 26.1 MCHC 31.4 L RDW Std Deviation 43.1 RDW Coeff of Mynor 14.2 Plt Count 300 MPV 10.5 H Immature Gran % (Auto) 0.8 Neut % (Auto) 77.5 Lymph % (Auto) 15.8 Pope % (Auto) 5.7 Eos % (Auto) 0.0 Baso % (Auto) 0.2 Neut # (Auto) 6.69 H Lymph # (Auto) 1.36 Pope # (Auto) 0.49 Eos # (Auto) 0.00 Baso # (Auto) 0.02 Immature Gran # (Auto) 0.07 H D-Dimer Specimen Type Arterial Sample Site L Radial Patient Temperature 36.9 POC pH 7.32 L POC pCO2 47 H POC pO2 72 L POC HCO3 24 POC Total CO2 25 POC Base Excess -2.0 Víctor Test Not Performed O2 Delivery Device Ventilator POC O2 Rate 26 Minute Ventilation 9.3 Vent Mode AC POC FiO2 100 Tidal Volume 360 End Tidal CO2 32 PEEP 15 Sodium Potassium Chloride Carbon Dioxide Anion Gap BUN Creatinine Est Cr Clr Drug Dosing Est GFR ( Amer) Est GFR (Non-Af Amer) BUN/Creatinine Ratio Glucose POC Glucose 124 H Estimat Average Glucose Hemoglobin A1c Calcium Ferritin Total Bilirubin AST ALT Alkaline Phosphatase C-Reactive Protein Total Protein Albumin Globulin Albumin/Globulin Ratio 12/30/20 12/30/20 10:18 16:11 WBC RBC Hgb Hct MCV MCH MCHC RDW Std Deviation RDW Coeff of Mynor Plt Count MPV Immature Gran % (Auto) Neut % (Auto) Lymph % (Auto) Pope % (Auto) Eos % (Auto) Baso % (Auto) Neut # (Auto) Lymph # (Auto) Pope # (Auto) Eos # (Auto) Baso # (Auto) Immature Gran # (Auto) D-Dimer 1220 H* Specimen Type Sample Site Patient Temperature POC pH POC pCO2 POC pO2 POC HCO3 POC Total CO2 POC Base Excess Víctor Test O2 Delivery Device POC O2 Rate Minute Ventilation Vent Mode POC FiO2 Tidal Volume End Tidal CO2 PEEP Sodium Potassium Chloride Carbon Dioxide Anion Gap BUN Creatinine Est Cr Clr Drug Dosing Est GFR ( Amer) Est GFR (Non-Af Amer) BUN/Creatinine Ratio Glucose POC Glucose 231 H Estimat Average Glucose Hemoglobin A1c Calcium Ferritin Total Bilirubin AST ALT Alkaline Phosphatase C-Reactive Protein Total Protein Albumin Globulin Albumin/Globulin Ratio
[2020-12-30] MEDS: SODIUM CHLORIDE 0.9% 10ML FLUSH IV SCH (20:32)
[2020-12-30] MEDS: FLUTICASONE FUROATE 200MCG 14 PUFFS/INHALER INH SCH (21:57)
[2020-12-31] MEDS: CISATRACURIUM BESYLATE 40 MG in 0.9 % SODIUM CHLORIDE 80 ML IV SCH ×6 (01:49→23:46)
[2020-12-31] MEDS: [UNRECOGNIZED DRUG - REMARK] SCH ×4 (01:51→12:56)
[2020-12-31 04:11] LABS: iSTAT Art Bld Gas pCO2 Correct 52 mmHg (35-46); iSTAT Art Bld Gas pH Corrected 7.306 (7.35-7.45); iSTAT Arterial Blood Gas HCO3 25 meg/L (19-24); iSTAT Arterial Blood Gas pCO2 50 mmHg (35-46); iSTAT Arterial Blood Gas pH 7.32 (7.35-7.45); iSTAT Arterial Blood Gas pO2 106 mmHg (80-95); iSTAT Arterial Blood Gas pO2 C 112; iSTAT Carbon Dioxide 27 mmol/L (24-31); iSTAT FiO2 40 %; iSTAT Hematocrit 35 % (37-47); iSTAT Hemoglobin 11.9 g/dl (12.0-16.0); iSTAT Potassium 4.5 mmol/L (3.3-5.0); iSTAT Site Art Line; iSTAT Sodium 142 mmol/L (135-144)
[2020-12-31] MEDS: INSULIN ASPART 100 UNITS/ML 3 ML PEN SC SCH ×5 (04:30→20:30)
[2020-12-31] MEDS: LEVOTHYROXINE SODIUM 25 MCG TABLET PO SCH (05:16)
[2020-12-31] MEDS: HEPARIN SOD 5,000 UNIT/0.5 ML VIAL SQ SCH ×3 (05:16→21:30)
[2020-12-31 07:20] LABS: Basophils # (auto) 0.02 K/uL (0-0.2); Basophils % (auto) 0.1 %; Hematocrit (blood only) 39.2 % (37-47); Hemoglobin 12.3 g/dL (12.0-16.0); Immature Granulocytes # (auto) 0.12 K/uL (0.00-0.02); Immature Granulocytes % (auto) 0.7 %; Lymphocytes # (auto) 0.83 K/uL (1.2-3.4); Lymphocytes % (auto) 4.7 %; Mean Corpuscular Hemoglobin 26.3 pg (25-34); Mean Corpuscular Hgb Conc 31.4 g/dL (32-36); Mean Corpuscular Volume 83.8 fL (80-100); Mean Platelet Volume 10.6 fL (7.4-10.4); Monocytes # (auto) 1.01 K/uL (0.11-0.59); Monocytes % (auto) 5.7 %; Neutrophils # (auto) 15.72 K/uL (1.4-6.5); Neutrophils % (auto) 88.8 %; Nucleated RBC # (auto) 0.02 K/uL (0-0); Nucleated RBC % (auto) 0.1 %; Platelet Count 302 K/uL (130-400); RDW Coefficient of Variation 14.2 % (11.5-14.5); RDW Standard Deviation 43.6 fL (36.4-46.3); Red Blood Count 4.68 M/uL (4.2-5.4)
[2020-12-31 07:55] LABS: Albumin Level 2.3 gm/dl (3.4-5.0); BUN Creatinine Ratio 36.6 (10-20); Calcium 8.6 mg/dl (8.5-10.1); Creatinine Clr Calc Pharmacy 83.5 ml/min; Est GFR (African American) 101.6; Est GFR (Non-African American) 87.7; Magnesium 2.4 mg/dl (1.8-2.4); Potassium 4.7 mmol/L (3.5-5.1)
[2020-12-31 07:56] LABS: Albumin Globulin Ratio 0.5 (0.9-2); Bilirubin,Total 0.5 mg/dl (0.2-1); Globulin 5.1 gm/dl (2.5-4.0); Phosphorus 3.7 mg/dl (2.5-4.9); Total Protein 7.4 gm/dl (6.4-8.2)
[2020-12-31] MEDS ORDERED: INSULIN GLARGINE SOLOSTAR 100 UNITS/ML 3 ML PEN SQ SCH (09:00)
[2020-12-31] MEDS: ATORVASTATIN 20 MG TAB PO SCH (09:21)
[2020-12-31] MEDS: allopurinoL 100 MG TAB PO SCH (09:21)
[2020-12-31] MEDS: dexAMETHasone 6 MG in SYRINGE 0 ML IV SCH (09:22)
[2020-12-31] MEDS: INSULIN HUMAN NPH SC SCH (09:25)
--- NOTE | 2020-12-31 10:21 | XRay Report ---
XR chest 1V portable HISTORY: 55 years-old Female resp failure acute respiratory failure COMPARISON: Chest radiograph 12/30/2020 TECHNIQUE: Portable AP view of the chest FINDINGS: Cardiomediastinal and hilar silhouettes are unchanged. Endotracheal tube terminates 3.5 cm superior t o the natasha. Left IJ central venous catheter distal tip terminates within the region of the inferior SVC. Enteric tube courses below the diaphragm with distal tip outside the [id number]. Interval re moval of the left subclavian central venous catheter. Mildly shifting multifocal bilateral airspace o pacities have progressed from the right lung base and slightly improved within the upper lung zones. No pneumothorax. Suggested trace right pleural effusion. Bones appear grossly intact. IMPRESSION: 1. Lines and tubes as above with interval removal of the left subclavian central venous catheter. 2. Bilateral pulmonary opacities suggestive of multifocal pneumonia. There is slightly improved aerat ion of the upper lung zones with progressive consolidation of the right lung base. ACT 112: Negative or not required by law. The above report was generated using voice recognition software. It may contain grammatical, syntax o r spelling errors. Electronically signed by: Abdulkadir Espinoza M.D. 12/31/2020 10:20 AM
--- NOTE | 2020-12-31 10:46 | Critical Care Progress Note ---
Date of Service December 31, 2020 Assessment & Plan (1) Pneumonia due to COVID-19 virus: (2) Acute hypoxemic respiratory failure: (3) Diabetes: Impression: 55-year-old female with poorly controlled diabetes and reported asthma with COVID-19 pneumonia and hypoxemic respiratory failure refractory to noninvasive ventilation and high flow oxygen. Decision was made to intubate the patient which was conducted today. See separate procedure notes. 24-hour events: Patient was seen in consultation. She was intubated and central lines and arterial lines were placed. She was put in the prone position for about 20 hours yesterday with improvement in her PF ratio. Neuromuscular blockade was also initiated. She was started on Rocephin for urinary tract infection. She is required low-dose Levophed to maintain blood pressure in the setting of significant sedation. I assisted in flipping the patient back to supine position this morning. Recommendations: 1. Neurologic: We will continue aggressive sedation as well as neuromuscular paralysis. Continue fentanyl, Versed, and propofol as well as Nimbex. Will maintain RASS of -3 to -4. 2. Cardiovascular: Continue Levophed as needed to maintain mean arterial pressure greater than or equal to 65. 3. Pulmonary: Acute hypoxemic respiratory failure secondary to COVID-19 p neumonia: Continue dexamethasone. No indication for remdesivir based on NIH guidelines. Continue ARDSnet strategy as tolerated. P/F ratio significantly improved today. Continue to allow for permissive hypercapnia. Respiratory mechanics are improved. Continue neuromuscular blockade for now 4. ID: COVID-19 pneumonia: Continue dexamethasone. Check respiratory culture. Day #2 Rocephin for E. coli UTI 5. GI: Okay to start trophic tube feedings even with paralytics and prone positioning per protocol 6. Renal: Renal function normal. Monitor urine output. Electrolytes and acid- base status are acceptable. 7. Endocrine: History of diabetes. Will likely need to transition to insulin drip for glycemic control for now. 8. Heme-onc: White blood cell count is significantly elevated today. Unclear if this is stress response, infection, or related to steroids. Continue to trend for now. The patient is critically ill at this point in time. A total of 78 minutes of critical care time evaluating managing and stabilizing this patient exclusive of procedures. She has life-threatening illness and is at risk for decompensation and . Family will be updated by phone if time permits today Admission and Anticipated Discharge Date Admission Date: December 28, 2020 Subjective Patient is intubated sedated and paralyzed Review of Systems Review of Systems: Unobtainable due to endotracheal tube Physical Exam Constitutional: + obese Intubated sedated and paralyzed Neck: trachea midline, no thyromegaly Respiratory: Auscultation: + crackles and + rales Cardiovascular: RRR, no murmur, no edema Gastrointestinal (Abdomen): normal bowel sounds, soft, nontender, no hepatosplenomegaly Musculoskeletal: Extremities: extremities normal to inspection Skin: no rashes, warm and dry Lymphatic: no cervical lymphadenopathy Results & Data Results & Data ([facility]) Vital Signs (Past 12 Hours) Vital Signs Pulse Resp BP Pulse Ox 12/31/20 10:02 87 122/74 93 12/31/20 09:02 88 116/76 89 L 12/31/20 08:02 98 H 125/76 96 12/31/20 07:36 97 H 26 H 96 12/31/20 07:02 97 H 124/78 96 12/31/20 04:02 97 H 119/72 93 12/31/20 04:00 98 H 95 12/31/20 03:58 98 H 26 H 94 12/31/20 03:47 98 H 119/75 93 12/31/20 03:45 98 H 95 12/31/20 03:32 98 H 121/74 94 12/31/20 03:30 99 H 95 12/31/20 03:17 97 H 119/77 94 12/31/20 03:15 96 H 95 12/31/20 03:02 98 H 118/73 94 12/31/20 03:00 99 H 95 12/31/20 02:47 96 H 123/77 95 12/31/20 02:45 97 H 96 12/31/20 02:32 97 H 118/74 94 12/31/20 02:30 98 H 95 12/31/20 02:17 97 H 121/75 95 12/31/20 02:15 97 H 95 12/31/20 02:02 98 H 113/74 95 12/31/20 02:00 99 H 95 12/31/20 01:47 98 H 123/75 95 12/31/20 01:45 99 H 95 12/31/20 01:32 99 H 119/74 95 12/31/20 01:30 98 H 95 12/31/20 01:17 99 H 121/73 95 12/31/20 01:15 99 H 95 12/31/20 01:02 97 H 112/72 94 12/31/20 01:01 95 H 12/31/20 01:00 97 H 95 12/31/20 00:47 97 H 119/73 95 12/31/20 00:45 98 H 95 12/31/20 00:32 95 H 113/72 94 12/31/20 00:30 93 H 95 12/31/20 00:17 91 H 113/73 94 12/31/20 00:15 91 H 94 12/31/20 00:03 91 H 94 12/31/20 00:02 90 113/70 94 12/31/20 00:00 91 H 94 12/30/20 23:47 90 114/70 94 12/30/20 23:46 90 111/72 95 12/30/20 23:45 90 94 12/30/20 23:30 90 94 12/30/20 23:16 94 H 26 H 94 12/30/20 23:15 94 H 94 12/30/20 23:01 99 H 94 12/30/20 22:59 96 H 121/72 94 12/30/20 22:45 96 H 94 Laboratory Results 12/31/20 06:26 12/31/20 06:26 AB.3 2/50/106/25. Current vent settings are assist control 26/360/12/0.40. Plateau pressure 22, peak pressure 25. [id number]/F265 Urine culture from 12/28/2020 growing E. coli which is pansensitive Diagnostic Findings Chest x-ray from today was independently reviewed. Tubes and lines appear to be in good position including the orogastric tube, internal jugular catheter, and endotracheal tube. There are persistent patchy bibasilar infiltrates, however these may be slightly improved compared to yesterday to prior chest x-ray from 12/28/2020 And are certainly improved compared Coding Level of Care Code Critical Care 1st 30-74 mins Diagnoses Pneumonia due to COVID-19 virus U07.1; J12.82 Acute hypoxemic respiratory failure J96.01 Diabetes E11.9 Time Spent (min) 78
[2020-12-31] MEDS: ASPIRIN 81 MG CHEW PO SCH (11:45)
[2020-12-31] MEDS: propofoL 1,000 MG/100 ML VIAL IV SCH ×2 (11:46→21:07)
[2020-12-31] MEDS: PEPTAMEN INTENSE VHP 1.0 CAL 1,000 ML BAG OG SCH (12:54)
[2020-12-31] MEDS ORDERED: NovoLIN-R BOLUS FROM BAG IV ONE (13:15)
[2020-12-31] MEDS: FAMOTIDINE 20 MG TAB PO SCH (14:23)
[2020-12-31] MEDS: INSULIN REGULAR 250 UNITS in SODIUM CHLORIDE 0.9% 247.5 ML IV SCH (14:23)
--- NOTE | 2020-12-31 14:39 | Pharmacy Report ---
Pharmacy Glycemic Short Note 2 - Date of Service December 31, 2020 - Glycemic Short BSG Results (Last 24 hours): 12/30/20 12/30/20 12/30/20 16:11 20:06 23:45 Glucose POC Glucose 231 H POC Glucose (other) 254 H 226 H 12/31/20 12/31/20 12/31/20 04:10 06:26 09:19 Glucose 197 H POC Glucose POC Glucose (other) 205 H 196 H 12/31/20 12:50 Glucose POC Glucose POC Glucose (other) 232 H OUTPATIENT ANTIDIABETIC REGIMEN: * Levemir 24 units daily * Metformin * Empagliflozin * Dulaglutide * HbA1c 12.1 % 12/30/20 ASSESSMENT: 12/31 * BSGs have been elevated over past 24 hours (196-254 mg/dL) * Peptamen intense VHP continuous tube feeds initiated today at 10 mL/hr * Will add q4h Novolog to cover tube feeds * Continues on dexamethasone 6 mg IV daily - will cover with NPH * BSG at lunchtime of 232 mg/dL - will start insulin infusion 12/30 * BSGs well controlled yesterday, however patient required intubation this AM and is now sedated, ventilated and requiring norepi for pressor support * AM doses of ordered NPH and Lantus were not given. Nor has BSG been checked since intubation * Will give basal insulin dose (Lantus alone) w/ 1600 BSG check - dose will be based upon last 24 hr requirement * Novolog will be dosed Q 4 hrs with CF and CR doses based upon "severe" stress level * Would recommend initiating IV insulin drip per protocol, goal range 120- 180mg/dL if BSG > 220 x 1 or greater than 180 x 2 12/29 * 55 yo F with T2DM admitted 12/28 for acute resp failure 2nd COVID, asthma. Currently NPO, on BiPAP, and receiving dexamethasone * BSG's persistently >180 mg/dL x4 thus far, likely 2nd insufficient basal insulin and correction factor. Will tighten PLAN FOR INPATIENT GLYCEMIC CONTROL: * Hold outpatient oral diabetes medications * Start IV insulin infusion per severe stress protocol * Goal Range 140 - 180 mg/dl * In the critical care setting, continuous IV insulin infusion has been shown to be the best method for achieving glycemic targets. * Basal insulin * Lantus 20 units SC daily given this morning, will give additional 10 unit dose this afternoon to equal yesterday's basal dose * NPH 20 units (0.25unit/kg) SQ daily w/ IV dexamethasone * Bolus insulin * NovoLog per scale q 4 hrs * Goal Range: Low 110 mg/dL - High 140 mg/dL * Nutritional / Prandial insulin per carb ratio of 1 unit per 5 grams CHO consumed * Instructions added to cover tube feeds (Peptamen Intense VHP)
[2020-12-31] MEDS ORDERED: INSULIN GLARGINE SOLOSTAR 100 UNITS/ML 3 ML PEN SQ ONE (15:00)
[2020-12-31] MEDS: MIDAZOLAM HCL 125 MG/250 ML BAG IV SCH (15:51)
--- NOTE | 2020-12-31 15:57 | Procedure Note ---
Procedure Note Date of Service December 31, 2020 ARTERIAL LINE PROCEDURE NOTE: Procedure: Arterial Line Placement Provider: Ian Duvall MD Indication: Monitoring on Pressors Anesthesia: None Patient is intubated and sedated and unable to provide verbal or written consent. She did consent arterial lines prior to intubation. No family immediately available. A time-out was completed verifying correct patient, procedure, site, positioning, and implant(s) or special equipment if applicable. Allens test was performed to ensure adequate perfusion. Patients right wrist was prepped and draped in the usual sterile fashion. A 20g Arrow arterial line was introduced into the [] artery. Catheter was threaded, and the needle was removed with appropriate blood return. Good waveform was observed. The patient tolerated the procedure well. Blood Loss: Minimal Complications: None Coding CPT Codes Tubes, Drains, and Vasc Access - Tubes, Drains, and Vasc Access: [id number] Insertion Catheter, Artery ([id number]) [facility] Procedure Codes (Charges) Tubes, Drains, and Vasc Access Procedure 1: Tubes, Drains, and Vasc Access: [id number] Insertion Catheter, Artery
[2020-12-31] MEDS: cefTRIAXone SODIUM 1,000 MG in DEXTROSE 5% 50 ML IV SCH (17:52)
[2020-12-31] MEDS: fentaNYL DRIP 1,250 MCG/250 ML BAG IV SCH (18:02)
--- NOTE | 2020-12-31 18:06 | Hospitalist Progress Note ---
Date of Service December 31, 2020 Assessment & Plan (1) Acute hypoxemic respiratory failure: Secondary to asthma exacerbation secondary to severe COVID-19 pneumonia Possible Bacterial Pneumonia -- CXR: Multifocal bilateral airspace opacities. This likely represents a viral pneumonia. Recommend follow-up to ensure resolution. -- was on high flow O2 still desaturating, s/p [facility] -- currently sedated prone positioning also ordered -- remains on FiO2 40% -- continue Decadron Day [address] Duvall's recommendation, basing on NIH guideline Plasma ordered, awaiting transfusion today -- Heparin q8h -- blood cultures: negative sputum culture: pending Ceftriaxone IV Day 2 UTI E coli -- on Ceftri Day 2 Hypertension -- monitor ARF secondary to illness -- resolved Diarrhea secondary to illness rule out C. difficile -- resolved hyperlipidemia on statin Rx DM2 insulin requiring, suboptimal control asked off recent outpatient hemoglobin A1c of 12.28 November 2020 -- Glycemic pharmacy consult DVT prophylaxis. Heparin subcu Full code plan of care discussed with patient's daughter and in detail and at length all questions answered they are understanding, agreeable, comfortable with the plan of care Admission and Anticipated Discharge Date Admission Date: December 28, 2020 Subjective ff up for acute hypoxic respiratory failure, covid pneumonia seen with RN Jake at bedside discussed patient with him no issues so far still intubated, sedated FiO2 40% patient not in acute distress NG tube feeding started no other issues noted Review of Systems Review of Systems: All systems reviewed & are unremarkable except as noted in Subjective Physical Exam Physical Exam: General- sedated, intubated Eyes- anicteric Neck- no JVD Lungs- (+) bilateral crackles Heart- normal rate, regular rhythm; no murmurs Abdomen- hypoactive bowel sounds, nondistended, soft Extremities- no pretibial edema, no calf tenderness Neuro- sedated Skin- warm & dry Results & Data Results & Data ([facility]) Vital Signs (Past 12 Hours) Vital Signs Temp Pulse Resp BP Pulse Ox 12/31/20 17:57 37.3 C 87 27 H 138/76 94 12/31/20 17:36 37.3 C 86 142/84 H 93 12/31/20 17:06 37.4 C 88 144/84 H 92 12/31/20 16:36 37.5 C 89 141/81 H 92 12/31/20 16:06 37.6 C H 89 138/86 89 L 12/31/20 15:06 82 116/79 93 12/31/20 14:47 86 26 H 94 12/31/20 14:36 84 113/74 93 12/31/20 14:06 82 112/77 93 12/31/20 13:36 85 116/79 93 12/31/20 13:06 87 123/81 93 12/31/20 12:36 84 118/75 93 12/31/20 12:06 86 121/80 93 12/31/20 11:45 97 H 27 H 96 12/31/20 11:36 84 134/83 94 12/31/20 11:06 83 125/82 94 12/31/20 10:02 87 122/74 93 12/31/20 09:02 88 116/76 89 L 12/31/20 08:02 98 H 125/76 96 12/31/20 07:36 97 H 26 H 96 12/31/20 07:02 97 H 124/78 96 all noted and reviewed including below Laboratory Results Laboratory Results - last 24 hr 12/28/20 12/30/20 12/30/20 18:16 20:06 23:45 WBC RBC Hgb POC Hgb Hct POC Hct MCV MCH MCHC RDW Std Deviation RDW Coeff of Myonr Plt Count MPV Immature Gran % (Auto) Neut % (Auto) Lymph % (Auto) [place] % (Auto) Eos % (Auto) Baso % (Auto) Neut # (Auto) Lymph # (Auto) [place] # (Auto) Eos # (Auto) Baso # (Auto) Immature Gran # (Auto) Absolute Nucleated RBC Nucleated RBC % (auto) Sample Site POC pH POC pCO2 POC pO2 POC HCO3 POC Total CO2 POC Base Excess ABG pH (Temp Correct) ABG pCO2 (Temp Corrct POC ABG pO2 at Pt Temp POC ABG O2 Sat Víctor Test O2 Delivery Device POC O2 Rate POC FiO2 Tidal Volume PEEP POC Sodium Sodium POC Potassium Potassium Chloride Carbon Dioxide Anion Gap BUN Creatinine Est Cr Clr Drug Dosing Est GFR ( Amer) Est GFR (Non-Af Amer) BUN/Creatinine Ratio Glucose POC Glucose (other) 254 H 226 H Calcium Phosphorus Magnesium Total Bilirubin AST ALT Alkaline Phosphatase Total Protein Albumin Globulin Albumin/Globulin Ratio Blood Type A Positive Antibody Screen NEGATIVE 12/31/20 12/31/20 12/31/20 03:57 04:10 06:26 WBC 17.70 H RBC 4.68 Hgb 12.3 POC Hgb 11.9 L Hct 39.2 POC Hct 35 L MCV 83.8 MCH 26.3 MCHC 31.4 L RDW Std Deviation 43.6 RDW Coeff of Mynor 14.2 Plt Count 302 MPV 10.6 H Immature Gran % (Auto) 0.7 Neut % (Auto) 88.8 Lymph % (Auto) 4.7 [place] % (Auto) 5.7 Eos % (Auto) 0.0 Baso % (Auto) 0.1 Neut # (Auto) 15.72 H Lymph # (Auto) 0.[address] [place] # (Auto) 1.01 H Eos # (Auto) 0.00 Baso # (Auto) 0.02 Immature Gran # (Auto) 0.12 H Absolute Nucleated RBC 0.02 H Nucleated RBC % (auto) 0.1 Sample Site Art Line POC pH 7.32 L POC pCO2 50 H POC pO2 106 H POC HCO3 25 H POC Total CO2 27 POC Base Excess -1.0 ABG pH (Temp Correct) 7.306 L ABG pCO2 (Temp Corrct 52 H POC ABG pO2 at Pt Temp 112 POC ABG O2 Sat 98.0 H Víctor Test NA O2 Delivery Device Ventilator POC O2 Rate 26 POC FiO2 40 Tidal Volume 360 PEEP 14 POC Sodium 142 Sodium POC Potassium 4.5 Potassium Chloride Carbon Dioxide Anion Gap BUN Creatinine Est Cr Clr Drug Dosing Est GFR ( Amer) Est GFR (Non-Af Amer) BUN/Creatinine Ratio Glucose POC Glucose (other) 205 H Calcium Phosphorus Magnesium Total Bilirubin AST ALT Alkaline Phosphatase Total Protein Albumin Globulin Albumin/Globulin Ratio Blood Type Antibody Screen 12/31/20 12/31/20 12/31/20 06:26 09:19 12:50 WBC RBC Hgb POC Hgb Hct POC Hct MCV MCH MCHC RDW Std Deviation RDW Coeff of Mynor Plt Count MPV Immature Gran % (Auto) Neut % (Auto) Lymph % (Auto) [place] % (Auto) Eos % (Auto) Baso % (Auto) Neut # (Auto) Lymph # (Auto) [place] # (Auto) Eos # (Auto) Baso # (Auto) Immature Gran # (Auto) Absolute Nucleated RBC Nucleated RBC % (auto) Sample Site POC pH POC pCO2 POC pO2 POC HCO3 POC Total CO2 POC Base Excess ABG pH (Temp Correct) ABG pCO2 (Temp Corrct POC ABG pO2 at Pt Temp POC ABG O2 Sat Víctor Test O2 Delivery Device POC O2 Rate POC FiO2 Tidal Volume PEEP POC Sodium Sodium 144 POC Potassium Potassium 4.7 Chloride 111 H Carbon Dioxide 24 Anion Gap 9.0 BUN 28 H Creatinine 0.76 D Est Cr Clr Drug Dosing 83.5 Est GFR ( Amer) 101.6 Est GFR (Non-Af Amer) 87.7 BUN/Creatinine Ratio 36.6 H Glucose 197 H POC Glucose (other) 196 H 232 H Calcium 8.6 Phosphorus 3.7 Magnesium 2.4 Total Bilirubin 0.5 AST 17 ALT 15 Alkaline Phosphatase 86 Total Protein 7.4 Albumin 2.3 L Globulin 5.1 H Albumin/Globulin Ratio 0.5 L Blood Type Antibody Screen
[2020-12-31] MEDS: CISATRACURIUM BESYLATE 100 MG in SODIUM CHLORIDE 0.9% 200 ML IV SCH (21:04)
[2020-12-31] MEDS: Standard Conc 16mcg/mL; 8mg in 500mL IV SCH (21:05)
[2020-12-31] MEDS: FLUTICASONE FUROATE 200MCG 14 PUFFS/INHALER INH SCH (23:32)
[2021-01-01] MEDS: CISATRACURIUM BESYLATE 40 MG in 0.9 % SODIUM CHLORIDE 80 ML IV SCH (00:50)
[2021-01-01] MEDS: INSULIN ASPART 100 UNITS/ML 3 ML PEN SC SCH ×7 (01:16→20:23)
[2021-01-01 04:53] LABS: iSTAT Arterial Blood Gas HCO3 28 meg/L (19-24); iSTAT Arterial Blood Gas pCO2 40 mmHg (35-46); iSTAT Arterial Blood Gas pH 7.46 (7.35-7.45); iSTAT Arterial Blood Gas pO2 81 mmHg (80-95); iSTAT Carbon Dioxide 29 mmol/L (24-31); iSTAT FiO2 40 %; iSTAT Site Art Line
[2021-01-01] MEDS: HEPARIN SOD 5,000 UNIT/0.5 ML VIAL SQ SCH ×3 (06:13→21:45)
[2021-01-01 06:14] LABS: Basophils # (auto) 0.01 K/uL (0-0.2); Basophils % (auto) 0.1 %; Eosinophils # (auto) 0.01 K/uL (0-0.5); Eosinophils % (auto) 0.1 %; Hematocrit (blood only) 33.3 % (37-47); Hemoglobin 10.4 g/dL (12.0-16.0); Immature Granulocytes # (auto) 0.05 K/uL (0.00-0.02); Immature Granulocytes % (auto) 0.6 %; Lymphocytes # (auto) 0.68 K/uL (1.2-3.4); Lymphocytes % (auto) 8.2 %; Mean Corpuscular Hgb Conc 31.2 g/dL (32-36); Mean Corpuscular Volume 83.3 fL (80-100); Mean Platelet Volume 10.4 fL (7.4-10.4); Monocytes # (auto) 0.52 K/uL (0.11-0.59); Monocytes % (auto) 6.3 %; Neutrophils # (auto) 7.02 K/uL (1.4-6.5); Neutrophils % (auto) 84.7 %; Platelet Count 240 K/uL (130-400); RDW Coefficient of Variation 14.1 % (11.5-14.5); RDW Standard Deviation 42.9 fL (36.4-46.3); White Blood Count 8.29 K/uL (4.8-10.8)
[2021-01-01] MEDS: LEVOTHYROXINE SODIUM 25 MCG TABLET PO SCH (06:16)
[2021-01-01] MEDS: CISATRACURIUM BESYLATE 100 MG in SODIUM CHLORIDE 0.9% 200 ML IV SCH (06:30)
[2021-01-01 06:44] LABS: Albumin Level 1.9 gm/dl (3.4-5.0); BUN Creatinine Ratio 44.5 (10-20); Calcium 8.8 mg/dl (8.5-10.1); Creatinine Clr Calc Pharmacy 93.2 ml/min; Est GFR (African American) 113.3; Est GFR (Non-African American) 97.8; Magnesium 2.2 mg/dl (1.8-2.4)
[2021-01-01 06:48] LABS: Albumin Globulin Ratio 0.4 (0.9-2); Bilirubin,Total 0.3 mg/dl (0.2-1); Globulin 4.4 gm/dl (2.5-4.0); Phosphorus 2.1 mg/dl (2.5-4.9); Total Protein 6.3 gm/dl (6.4-8.2)
[2021-01-01] MEDS: ASPIRIN 81 MG CHEW PO SCH (08:40)
[2021-01-01] MEDS: dexAMETHasone 6 MG in SYRINGE 0 ML IV SCH (08:40)
[2021-01-01] MEDS: FAMOTIDINE 20 MG TAB PO SCH (08:41)
[2021-01-01] MEDS: allopurinoL 100 MG TAB PO SCH (08:41)
[2021-01-01] MEDS: ATORVASTATIN 20 MG TAB PO SCH (08:41)
[2021-01-01] MEDS: INSULIN HUMAN NPH SC SCH (08:42)
[2021-01-01] MEDS ORDERED: INSULIN GLARGINE SOLOSTAR 100 UNITS/ML 3 ML PEN SQ SCH ×3 (09:00)
--- NOTE | 2021-01-01 10:33 | Procedure Note ---
Procedure Note Date of Service January 01, 2021 ARTERIAL LINE PROCEDURE NOTE: Procedure: Arterial Line Placement Provider: Ian Duvall MD Indication: Monitoring on Pressors Anesthesia: 3 mL lidocaine 1% Procedure was urgent. Patient intubated and sedated and unable to provide consent. No family immediately available. Patient had verbally consented to arterial lines prior to intubation. The patient's current right radial A-line is nonfunctional and repeat arterial line was required. She had already had arterial lines in the left and right wrist so decision was made to proceed with femoral arterial catheterization A time-out was completed verifying correct patient, procedure, site, positioning, and implant(s) or special equipment if applicable. Patient's right groin was prepped using chlorhexidine and a sterile field established. The femoral artery on the right was easily palpable. 3 mL of 1% lidocaine without epinephrine was used for local anesthesia. After anesthesia was established, an 18-gauge needle on a syringe was used to enter the right femoral artery using landmarks and palpation. Artery was entered and pulsatile blood was observed. A wire was passed and the needle removed. A skin leah was made with a scalpel and a 20 cm 20-gauge catheter was threaded over the wire into the vessel. The wire was removed. Catheter was attached to the transducer and an arterial waveform was appreciated. The catheter was sutured in place. A Biopatch was applied and sterile dressing applied. Patient tolerated the procedure well. Blood Loss: Less than 10 mL Complications: None Coding CPT Codes Tubes, Drains, and Vasc Access - Tubes, Drains, and Vasc Access: [id number] Insertion Catheter, Artery ([id number]) [facility] [place] Procedure Codes (Charges) Tubes, Drains, and Vasc Access Procedure 1: Tubes, Drains, and Vasc Access: [id number] Insertion Catheter, Artery
--- NOTE | 2021-01-01 10:37 | Critical Care Progress Note ---
Date of Service January 01, 2021 Assessment & Plan (1) Pneumonia due to COVID-19 virus: (2) Acute hypoxemic respiratory failure: (3) Diabetes: Impression: 55-year-old female with poorly controlled diabetes and reported asthma with COVID-19 pneumonia and hypoxemic respiratory failure refractory to noninvasive ventilation and high flow oxygen. Decision was made to intubate the patient which was conducted today. See separate procedure notes. 24-hour events: Patient was turned prone around 2:00 yesterday afternoon and did well. We were able to wean her FiO2 down to 0.4 and PEEP down to 5. She was returned to the supine position around 10:00 this morning. Her arterial line was no longer able to draw and had a dampened waveform so a femoral line was replaced. She is tolerating trophic tube feeds and has been weaned off vasopressor agents. Sputum culture was positive for staph species Recommendations: 1. Neurologic: Continue fentanyl, Versed, and propofol. Given her significant improvement, will discontinue neuromuscular blockade and continue to reassess the patient. 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 2. Cardiovascular: Now off pressors. Will initiate low-dose diuresis to try and keep the lungs on the dry side. I/O essentially even since admission. 3. Pulmonary: Acute hypoxemic respiratory failure secondary to COVID-19 pneu monia: AB.46/40/80/28 vent settings: Assist-control/26/360/5/0 0.4. Continue dexamethasone. Continue ARDSnet strategy as tolerated. P/F ratio 200 today, improving. Respiratory mechanics are improved. As sedation is weaned, if lung mechanics remained stable, can consider proceeding with spontaneous breathing trials and sedation breaks 4. ID: COVID-19 pneumonia: Continue dexamethasone. Day #3 Rocephin for E. coli UTI. Staph in sputum, sensitivities pending. Will transition to ceft aroline to cover staph pending final ID and sensitivities. 5. GI: Continue tube feeding and advance to goal when NMB off. 6. Renal: Renal function normal. Monitor urine output. Electrolytes and acid- base status are acceptable. 7. Endocrine: History of diabetes. Glycemic control per protocol. 8. Heme-onc: White blood cell count is now back to normal. Continue to trend The patient is critically ill at this point in time. A total of 39 minutes of critical care time evaluating managing and stabilizing this patient exclusive of procedures. She has life-threatening illness and is at risk for decompensation and . Daughter was updated by phone yesterday and will update again today. Admission and Anticipated Discharge Date Admission Date: December 28, 2020 Subjective intubated and sedated and paralyzed. Physical Exam Constitutional: + obese Neck: trachea midline, no thyromegaly Respiratory: + respiratory distress, + labored breathing and + cough Auscultation: + crackles and + rales Cardiovascular: RRR, no murmur, no edema Gastrointestinal (Abdomen): normal bowel sounds, soft, nontender, no hepatosplenomegaly Musculoskeletal: Extremities: extremities normal to inspection Skin: no rashes, warm and dry Lymphatic: no cervical lymphadenopathy Results & Data Results & Data ([facility]) Vital Signs (Past 12 Hours) Vital Signs Temp Pulse Resp BP Pulse Ox 01/01/21 07:39 67 26 H 95 01/01/21 04:25 66 26 H 96 01/01/21 03:23 36.2 C L 69 109/67 96 01/01/21 03:02 36.2 C L 70 103/64 96 01/01/21 01:53 36.2 C L 69 103/64 96 01/01/21 01:34 70 26 H 96 01/01/21 01:23 36.3 C L 69 106/67 96 01/01/21 00:53 36.3 C L 70 105/67 96 01/01/21 00:23 36.3 C L 69 107/65 96 12/31/20 23:53 36.3 C L 68 101/64 96 12/31/20 23:23 36.5 C 68 102/64 94 12/31/20 22:53 36.6 C 66 100/64 93 12/31/20 22:35 70 26 H 94 12/31/20 22:23 36.6 C 70 103/62 95 12/31/20 21:53 36.7 C 73 105/62 94 Laboratory Results 01/01/21 05:46 01/01/21 05:46 AB.46/40/80/28 vent settings: Assist-control/26/360/5/0 0.4 Sputum growing staph species, sensitivities pending Diagnostic Findings Chest x-ray from today was independently reviewed. Endotracheal tube orogastric tube and central venous catheter in good position. There are persistent bilateral hazy opacities more prominent in the periphery. The hazy opacities appear essentially stable compared to yesterday Coding Level of Care Code Critical Care 1st 30-74 mins Diagnoses Pneumonia due to COVID-19 virus U07.1; J12.82 Acute hypoxemic respiratory failure J96.01 Diabetes E11.9 Time Spent (min) 39
[2021-01-01] MEDS ORDERED: FUROSEMIDE 20 MG in SYRINGE 0 ML IV ONE (10:45)
--- NOTE | 2021-01-01 11:25 | XRay Report ---
SINGLE VIEW CHEST CLINICAL HISTORY: Respiratory failure. FINDINGS: An AP, portable, upright chest radiograph is compared to study dated 12/31/2020. The examina tion is degraded by portable technique and patient rotation. An endotracheal tube, an enteric tube, a nd a left internal jugular central venous catheter are unchanged in position. The cardiomediastinal s ilhouette is unremarkable. Multifocal airspace consolidation is again seen throughout both lungs, rig ht greater than left. This is similar appearance to yesterday. Small pleural effusions are suspected. No pneumothorax is seen. The bony thorax is grossly intact. IMPRESSION: 1. Stable lines and tubes. 2. Multifocal airspace consolidation is similar to yesterday. ACT 112: Negative or not required by law. Electronically signed by: Sancho Frye M.D. 01/01/2021 11:24 AM
[2021-01-01] MEDS ORDERED: CEFTAROLINE FOSAMIL ACETATE 600 MG in SODIUM CHLORIDE 0.9% 250 ML IV STA (12:22)
[2021-01-01] MEDS: Standard Conc 16mcg/mL; 8mg in 500mL IV SCH (12:31)
[2021-01-01] MEDS ORDERED: INSULIN GLARGINE SOLOSTAR 100 UNITS/ML 3 ML PEN SQ ONE (14:45)
[2021-01-01] MEDS: LACTULOSE SYRUP 20 GM/30 ML UDC PO SCH (14:48)
[2021-01-01] MEDS: INSULIN REGULAR 250 UNITS in SODIUM CHLORIDE 0.9% 247.5 ML IV SCH (14:49)
[2021-01-01] MEDS: MIDAZOLAM HCL 125 MG/250 ML BAG IV SCH (14:52)
[2021-01-01] MEDS: fentaNYL DRIP 1,250 MCG/250 ML BAG IV SCH (14:52)
[2021-01-01] MEDS ORDERED: INSULIN ASPART 100 UNITS/ML 3 ML PEN SC ONE (15:00)
--- NOTE | 2021-01-01 15:07 | Pharmacy Report ---
Pharmacy Glycemic Short Note 2 - Date of Service January 01, 2021 - Glycemic Short BSG Results (Last 24 hours): 12/31/20 12/31/20 12/31/20 15:51 17:58 19:21 Glucose POC Glucose POC Glucose (other) 235 H 187 H 213 H 12/31/20 12/31/20 12/31/20 20:30 21:39 22:20 Glucose POC Glucose 216 H 184 H 164 H POC Glucose (other) 12/31/20 01/01/21 01/01/21 23:24 00:23 01:07 Glucose POC Glucose 138 H 134 H 122 H POC Glucose (other) 01/01/21 01/01/21 01/01/21 03:21 03:59 04:59 Glucose POC Glucose 140 H 155 H 135 H POC Glucose (other) 01/01/21 01/01/21 01/01/21 05:46 06:10 07:41 Glucose 133 H POC Glucose 130 H 123 H POC Glucose (other) 01/01/21 01/01/21 01/01/21 08:38 10:16 11:27 Glucose POC Glucose 125 H 117 H 131 H POC Glucose (other) 01/01/21 01/01/21 01/01/21 12:21 13:17 14:30 Glucose POC Glucose 142 H 174 H 158 H POC Glucose (other) OUTPATIENT ANTIDIABETIC REGIMEN: * Levemir 24 units daily * Metformin * Empagliflozin * Dulaglutide * HbA1c 12.1 % 12/30/20 ASSESSMENT: 01/01 * BSGs trended down nicely with insulin infusion * Increased NPH to ~0.4 unit/kg dosing to be given with IV dexamethasone * Increased Lantus to 40 units SC today (full weight-based stress of 3 dosing) * BSGs have remained reasonably well-controlled while on insulin infusion at 1 unit/hr for past 2 hours - will transition insulin infusion today * Tube feeds likely to be advanced today 12/31 * BSGs have been elevated over past 24 hours (196-254 mg/dL) * Peptamen intense VHP continuous tube feeds initiated today at 10 mL/hr * Will add q4h Novolog to cover tube feeds * Continues on dexamethasone 6 mg IV daily - will cover with NPH * BSG at lunchtime of 232 mg/dL - will start insulin infusion 12/30 * BSGs well controlled yesterday, however patient required intubation this AM and is now sedated, ventilated and requiring norepi for pressor support * AM doses of ordered NPH and Lantus were not given. Nor has BSG been checked since intubation * Will give basal insulin dose (Lantus alone) w/ 1600 BSG check - dose will be based upon last 24 hr requirement * Novolog will be dosed Q 4 hrs with CF and CR doses based upon "severe" stress level * Would recommend initiating IV insulin drip per protocol, goal range 120- 180mg/dL if BSG > 220 x 1 or greater than 180 x 2 12/29 * 55 yo F with T2DM admitted 12/28 for acute resp failure 2nd COVID, asthma. Currently NPO, on BiPAP, and receiving dexamethasone * BSG's persistently >180 mg/dL x4 thus far, likely 2nd insufficient basal insulin and correction factor. Will tighten PLAN FOR INPATIENT GLYCEMIC CONTROL: * Hold outpatient oral diabetes medications * Transition insulin infusion * Additional 5 units of Lantus and 2 units of Novolog given 1 hour prior to discontinuation of insulin infusion * Basal insulin * Lantus 40 units today * NPH 30 units (0.4 unit/kg) SQ daily w/ IV dexamethasone * Bolus insulin * NovoLog per scale q 4 hrs * Goal Range: Low 110 mg/dL - High 140 mg/dL * Correction Factor: 15 mg/dL/unit * Nutritional / Prandial insulin per carb ratio of 1 unit per 4 grams CHO consumed * Instructions added to cover tube feeds (Peptamen Intense P)
[2021-01-01] MEDS: propofoL 1,000 MG/100 ML VIAL IV SCH (16:41)
--- NOTE | 2021-01-01 17:47 | Hospitalist Progress Note ---
Date of Service January 01, 2021 Assessment & Plan (1) Acute hypoxemic respiratory failure: Secondary to asthma exacerbation secondary to severe COVID-19 pneumonia Possible Bacterial Pneumonia -- CXR: Multifocal bilateral airspace opacities. This likely represents a viral pneumonia. Recommend follow-up to ensure resolution. -- was on high flow O2 still desaturating, s/p mechanical intubation 12/30/20 -- Mech Vent Day # 3 --Being weaned off sedation -- remains on AC mode, FiO2 40% -- continue Decadron Day [address] Duvall's recommendation, basing on NIH guideline Convalescent plasma given -- Heparin q8h -- blood cultures: negative sputum culture: Staph species Ceftriaxone IV x2 days transition to Ceftaroline IV day #1 UTI E coli --Ceftriaxone IV x2 days transition to Ceftaroline IV day #1 Hypertension -- monitor ARF secondary to illness -- resolved Diarrhea secondary to illness rule out C. difficile -- resolved hyperlipidemia on statin Rx DM2 insulin requiring, suboptimal control asked off recent outpatient hemoglobin A1c of 12.28 November 2020 -- Glycemic pharmacy consult DVT prophylaxis. Heparin subcu Full code Admission and Anticipated Discharge Date Admission Date: December 28, 2020 Subjective Follow-up for respiratory failure, Covid pneumonia Discussed with EMMANUEL Joseph and respiratory therapist Cecilia Patient off Levophed, off other sedatives Did not tolerate CPAP mood, back to AC mode for now Patient less agitated Tolerating tube feeding well Seen at the bedside, intubated, sedated Not in distress, comfortable No other issues noted Review of Systems Review of Systems: All systems reviewed & are unremarkable except as noted in Subjective Physical Exam Physical Exam: General-sedated, intubated, breathing with no effort or accessory muscle use Eyes- anicteric Neck- no JVD Lungs-positive mild rhonchi bilaterally anteriorly Heart- normal rate, regular rhythm; no murmurs Abdomen- normal bowel sounds, nondistended, soft, nontender Extremities-trace pretibial edema, no calf tenderness Neuro-sedated Skin- warm & dry Results & Data Results & Data ([facility]) Vital Signs (Past 12 Hours) Vital Signs Temp Pulse Resp BP Pulse Ox 01/01/21 15:28 70 26 H 93 01/01/21 14:54 37.0 C 68 114/72 94 01/01/21 14:24 36.9 C 65 117/71 95 01/01/21 13:24 36.8 C 71 104/67 97 01/01/21 12:54 36.8 C 63 95/63 L 96 01/01/21 12:24 36.6 C 64 99/66 L 95 01/01/21 11:24 60 94/63 L 98 01/01/21 11:19 62 26 H 98 01/01/21 10:24 64 95/64 L 96 01/01/21 09:24 36.6 C 66 95/58 L 96 01/01/21 08:19 36.7 C 67 152/12 H 95 01/01/21 07:39 67 26 H 95 01/01/21 07:24 36.5 C 66 95/56 L 95 all noted and reviewed including below Laboratory Results Laboratory Results - last 24 hr 12/28/20 12/31/20 12/31/20 18:16 15:51 17:58 WBC RBC Hgb Hct MCV MCH MCHC RDW Std Deviation RDW Coeff of Mynor Plt Count MPV Immature Gran % (Auto) Neut % (Auto) Lymph % (Auto) [place] % (Auto) Eos % (Auto) Baso % (Auto) Neut # (Auto) Lymph # (Auto) [place] # (Auto) Eos # (Auto) Baso # (Auto) Immature Gran # (Auto) Sample Site POC pH POC pCO2 POC pO2 POC HCO3 POC Total CO2 POC Base Excess POC ABG O2 Sat Víctor Test O2 Delivery Device POC O2 Rate Minute Ventilation POC FiO2 Tidal Volume PEEP Sodium Potassium Chloride Carbon Dioxide Anion Gap BUN Creatinine Est Cr Clr Drug Dosing Est GFR ( Amer) Est GFR (Non-Af Amer) BUN/Creatinine Ratio Glucose POC Glucose POC Glucose (other) 235 H 187 H Calcium Phosphorus Magnesium Total Bilirubin AST ALT Alkaline Phosphatase Total Protein Albumin Globulin Albumin/Globulin Ratio Blood Type A Positive Antibody Screen NEGATIVE 12/31/20 12/31/20 12/31/20 19:21 20:30 21:39 WBC RBC Hgb Hct MCV MCH MCHC RDW Std Deviation RDW Coeff of Mynor Plt Count MPV Immature Gran % (Auto) Neut % (Auto) Lymph % (Auto) [place] % (Auto) Eos % (Auto) Baso % (Auto) Neut # (Auto) Lymph # (Auto) [place] # (Auto) Eos # (Auto) Baso # (Auto) Immature Gran # (Auto) Sample Site POC pH POC pCO2 POC pO2 POC HCO3 POC Total CO2 POC Base Excess POC ABG O2 Sat Víctor Test O2 Delivery Device POC O2 Rate Minute Ventilation POC FiO2 Tidal Volume PEEP Sodium Potassium Chloride Carbon Dioxide Anion Gap BUN Creatinine Est Cr Clr Drug Dosing Est GFR ( Amer) Est GFR (Non-Af Amer) BUN/Creatinine Ratio Glucose POC Glucose 216 H 184 H POC Glucose (other) 213 H Calcium Phosphorus Magnesium Total Bilirubin AST ALT Alkaline Phosphatase Total Protein Albumin Globulin Albumin/Globulin Ratio Blood Type Antibody Screen 12/31/20 12/31/20 01/01/21 22:20 23:24 00:23 WBC RBC Hgb Hct MCV MCH MCHC RDW Std Deviation RDW Coeff of Mynor Plt Count MPV Immature Gran % (Auto) Neut % (Auto) Lymph % (Auto) [place] % (Auto) Eos % (Auto) Baso % (Auto) Neut # (Auto) Lymph # (Auto) [place] # (Auto) Eos # (Auto) Baso # (Auto) Immature Gran # (Auto) Sample Site POC pH POC pCO2 POC pO2 POC HCO3 POC Total CO2 POC Base Excess POC ABG O2 Sat Víctor Test O2 Delivery Device POC O2 Rate Minute Ventilation POC FiO2 Tidal Volume PEEP Sodium Potassium Chloride Carbon Dioxide Anion Gap BUN Creatinine Est Cr Clr Drug Dosing Est GFR ( Amer) Est GFR (Non-Af Amer) BUN/Creatinine Ratio Glucose POC Glucose 164 H 138 H 134 H POC Glucose (other) Calcium Phosphorus Magnesium Total Bilirubin AST ALT Alkaline Phosphatase Total Protein Albumin Globulin Albumin/Globulin Ratio Blood Type Antibody Screen 01/01/21 01/01/21 01/01/21 01:07 03:21 03:59 WBC RBC Hgb Hct MCV MCH MCHC RDW Std Deviation RDW Coeff of Mynor Plt Count MPV Immature Gran % (Auto) Neut % (Auto) Lymph % (Auto) [place] % (Auto) Eos % (Auto) Baso % (Auto) Neut # (Auto) Lymph # (Auto) [place] # (Auto) Eos # (Auto) Baso # (Auto) Immature Gran # (Auto) Sample Site POC pH POC pCO2 POC pO2 POC HCO3 POC Total CO2 POC Base Excess POC ABG O2 Sat Víctor Test O2 Delivery Device POC O2 Rate Minute Ventilation POC FiO2 Tidal Volume PEEP Sodium Potassium Chloride Carbon Dioxide Anion Gap BUN Creatinine Est Cr Clr Drug Dosing Est GFR ( Amer) Est GFR (Non-Af Amer) BUN/Creatinine Ratio Glucose POC Glucose 122 H 140 H 155 H POC Glucose (other) Calcium Phosphorus Magnesium Total Bilirubin AST ALT Alkaline Phosphatase Total Protein Albumin Globulin Albumin/Globulin Ratio Blood Type Antibody Screen 01/01/21 01/01/21 01/01/21 04:40 04:59 05:46 WBC 8.29 RBC 4.00 L Hgb 10.4 L Hct 33.3 L MCV 83.3 MCH 26.0 MCHC 31.2 L RDW Std Deviation 42.9 RDW Coeff of Mynor 14.1 Plt Count 240 MPV 10.4 Immature Gran % (Auto) 0.6 Neut % (Auto) 84.7 Lymph % (Auto) 8.2 [place] % (Auto) 6.3 Eos % (Auto) 0.1 Baso % (Auto) 0.1 Neut # (Auto) 7.02 H Lymph # (Auto) 0.68 L [place] # (Auto) 0.52 Eos # (Auto) 0.01 Baso # (Auto) 0.01 Immature Gran # (Auto) 0.05 H Sample Site Art Line POC pH 7.46 H POC pCO2 40 POC pO2 81 POC HCO3 28 H POC Total CO2 29 POC Base Excess 4.0 H POC ABG O2 Sat 96.0 H Víctor Test NA O2 Delivery Device Ventilator POC O2 Rate 26 Minute Ventilation 9.4 POC FiO2 40 Tidal Volume 360 PEEP 5 Sodium Potassium Chloride Carbon Dioxide Anion Gap BUN Creatinine Est Cr Clr Drug Dosing Est GFR ( Amer) Est GFR (Non-Af Amer) BUN/Creatinine Ratio Glucose POC Glucose 135 H POC Glucose (other) Calcium Phosphorus Magnesium Total Bilirubin AST ALT Alkaline Phosphatase Total Protein Albumin Globulin Albumin/Globulin Ratio Blood Type Antibody Screen 01/01/21 01/01/21 01/01/21 05:46 06:10 07:41 WBC RBC Hgb Hct MCV MCH MCHC RDW Std Deviation RDW Coeff of Mynor Plt Count MPV Immature Gran % (Auto) Neut % (Auto) Lymph % (Auto) [place] % (Auto) Eos % (Auto) Baso % (Auto) Neut # (Auto) Lymph # (Auto) [place] # (Auto) Eos # (Auto) Baso # (Auto) Immature Gran # (Auto) Sample Site POC pH POC pCO2 POC pO2 POC HCO3 POC Total CO2 POC Base Excess POC ABG O2 Sat Víctor Test O2 Delivery Device POC O2 Rate Minute Ventilation POC FiO2 Tidal Volume PEEP Sodium 144 Potassium 4.0 Chloride 112 H Carbon Dioxide 28 Anion Gap 4.0 BUN 30 H Creatinine 0.68 Est Cr Clr Drug Dosing 93.2 Est GFR ( Amer) 113.3 Est GFR (Non-Af Amer) 97.8 BUN/Creatinine Ratio 44.5 H Glucose 133 H POC Glucose 130 H 123 H POC Glucose (other) Calcium 8.8 Phosphorus 2.1 L D Magnesium 2.2 Total Bilirubin 0.3 AST 18 ALT 15 Alkaline Phosphatase 65 Total Protein 6.3 L Albumin 1.9 L Globulin 4.4 H Albumin/Globulin Ratio 0.4 L Blood Type Antibody Screen 01/01/21 01/01/21 01/01/21 08:38 10:16 11:27 WBC RBC Hgb Hct MCV MCH MCHC RDW Std Deviation RDW Coeff of Mynor Plt Count MPV Immature Gran % (Auto) Neut % (Auto) Lymph % (Auto) [place] % (Auto) Eos % (Auto) Baso % (Auto) Neut # (Auto) Lymph # (Auto) [place] # (Auto) Eos # (Auto) Baso # (Auto) Immature Gran # (Auto) Sample Site POC pH POC pCO2 POC pO2 POC HCO3 POC Total CO2 POC Base Excess POC ABG O2 Sat Víctor Test O2 Delivery Device POC O2 Rate Minute Ventilation POC FiO2 Tidal Volume PEEP Sodium Potassium Chloride Carbon Dioxide Anion Gap BUN Creatinine Est Cr Clr Drug Dosing Est GFR ( Amer) Est GFR (Non-Af Amer) BUN/Creatinine Ratio Glucose POC Glucose 125 H 117 H 131 H POC Glucose (other) Calcium Phosphorus Magnesium Total Bilirubin AST ALT Alkaline Phosphatase Total Protein Albumin Globulin Albumin/Globulin Ratio Blood Type Antibody Screen 01/01/21 01/01/21 01/01/21 12:21 13:17 14:30 WBC RBC Hgb Hct MCV MCH MCHC RDW Std Deviation RDW Coeff of Mynor Plt Count MPV Immature Gran % (Auto) Neut % (Auto) Lymph % (Auto) [place] % (Auto) Eos % (Auto) Baso % (Auto) Neut # (Auto) Lymph # (Auto) [place] # (Auto) Eos # (Auto) Baso # (Auto) Immature Gran # (Auto) Sample Site POC pH POC pCO2 POC pO2 POC HCO3 POC Total CO2 POC Base Excess POC ABG O2 Sat Víctor Test O2 Delivery Device POC O2 Rate Minute Ventilation POC FiO2 Tidal Volume PEEP Sodium Potassium Chloride Carbon Dioxide Anion Gap BUN Creatinine Est Cr Clr Drug Dosing Est GFR ( Amer) Est GFR (Non-Af Amer) BUN/Creatinine Ratio Glucose POC Glucose 142 H 174 H 158 H POC Glucose (other) Calcium Phosphorus Magnesium Total Bilirubin AST ALT Alkaline Phosphatase Total Protein Albumin Globulin Albumin/Globulin Ratio Blood Type Antibody Screen 01/01/21 16:02 WBC RBC Hgb Hct MCV MCH MCHC RDW Std Deviation RDW Coeff of Mynor Plt Count MPV Immature Gran % (Auto) Neut % (Auto) Lymph % (Auto) [place] % (Auto) Eos % (Auto) Baso % (Auto) Neut # (Auto) Lymph # (Auto) [place] # (Auto) Eos # (Auto) Baso # (Auto) Immature Gran # (Auto) Sample Site POC pH POC pCO2 POC pO2 POC HCO3 POC Total CO2 POC Base Excess POC ABG O2 Sat Víctor Test O2 Delivery Device POC O2 Rate Minute Ventilation POC FiO2 Tidal Volume PEEP Sodium Potassium Chloride Carbon Dioxide Anion Gap BUN Creatinine Est Cr Clr Drug Dosing Est GFR ( Amer) Est GFR (Non-Af Amer) BUN/Creatinine Ratio Glucose POC Glucose 156 H POC Glucose (other) Calcium Phosphorus Magnesium Total Bilirubin AST ALT Alkaline Phosphatase Total Protein Albumin Globulin Albumin/Globulin Ratio Blood Type Antibody Screen
[2021-01-02] MEDS: INSULIN ASPART 100 UNITS/ML 3 ML PEN SC SCH ×6 (00:11→21:58)
[2021-01-02] MEDS: fentaNYL DRIP 1,250 MCG/250 ML BAG IV SCH ×8 (00:11→20:29)
[2021-01-02] MEDS: CEFTAROLINE FOSAMIL ACETATE 600 MG in SODIUM CHLORIDE 0.9% 250 ML IV SCH ×3 (00:12→23:29)
[2021-01-02 04:50] LABS: iSTAT Art Bld Gas pCO2 Correct 41 mmHg (35-46); iSTAT Art Bld Gas pH Corrected 7.407 (7.35-7.45); iSTAT Arterial Blood Gas HCO3 26 meg/L (19-24); iSTAT Arterial Blood Gas pCO2 40 mmHg (35-46); iSTAT Arterial Blood Gas pH 7.42 (7.35-7.45); iSTAT Arterial Blood Gas pO2 59 mmHg (80-95); iSTAT Arterial Blood Gas pO2 C 61; iSTAT Carbon Dioxide 27 mmol/L (24-31); iSTAT FiO2 40 %; iSTAT Hematocrit 30 % (37-47); iSTAT Hemoglobin 10.2 g/dl (12.0-16.0); iSTAT Potassium 3.7 mmol/L (3.3-5.0); iSTAT Site Art Line; iSTAT Sodium 143 mmol/L (135-144)
[2021-01-02] MEDS: LEVOTHYROXINE SODIUM 25 MCG TABLET PO SCH (06:18)
[2021-01-02] MEDS: HEPARIN SOD 5,000 UNIT/0.5 ML VIAL SQ SCH ×3 (06:18→20:31)
[2021-01-02] MEDS: MIDAZOLAM HCL 125 MG/250 ML BAG IV SCH (06:31)
[2021-01-02 06:44] LABS: Basophils # (auto) 0.01 K/uL (0-0.2); Basophils % (auto) 0.1 %; Eosinophils # (auto) 0.04 K/uL (0-0.5); Eosinophils % (auto) 0.4 %; Hematocrit (blood only) 33.7 % (37-47); Hemoglobin 10.4 g/dL (12.0-16.0); Immature Granulocytes # (auto) 0.05 K/uL (0.00-0.02); Immature Granulocytes % (auto) 0.5 %; Lymphocytes # (auto) 0.94 K/uL (1.2-3.4); Lymphocytes % (auto) 9.5 %; Mean Corpuscular Hemoglobin 25.7 pg (25-34); Mean Corpuscular Hgb Conc 30.9 g/dL (32-36); Mean Corpuscular Volume 83.2 fL (80-100); Mean Platelet Volume 10.7 fL (7.4-10.4); Monocytes # (auto) 0.66 K/uL (0.11-0.59); Monocytes % (auto) 6.6 %; Neutrophils # (auto) 8.23 K/uL (1.4-6.5); Neutrophils % (auto) 82.9 %; Platelet Count 273 K/uL (130-400); RDW Coefficient of Variation 14.2 % (11.5-14.5); RDW Standard Deviation 43.5 fL (36.4-46.3); Red Blood Count 4.05 M/uL (4.2-5.4); White Blood Count 9.93 K/uL (4.8-10.8)
[2021-01-02 07:11] LABS: Albumin Globulin Ratio 0.4 (0.9-2); Albumin Level 1.9 gm/dl (3.4-5.0); Bilirubin,Total 0.3 mg/dl (0.2-1); Calcium 8.6 mg/dl (8.5-10.1); Creatinine Clr Calc Pharmacy 83.5 ml/min; Est GFR (African American) 98.5; Globulin 4.5 gm/dl (2.5-4.0); Magnesium 2.1 mg/dl (1.8-2.4); Phosphorus 3.1 mg/dl (2.5-4.9); Potassium 3.8 mmol/L (3.5-5.1); Total Protein 6.4 gm/dl (6.4-8.2)
[2021-01-02] MEDS: allopurinoL 100 MG TAB PO SCH (08:32)
[2021-01-02] MEDS: ASPIRIN 81 MG CHEW PO SCH (08:32)
[2021-01-02] MEDS: FAMOTIDINE 20 MG TAB PO SCH (08:32)
[2021-01-02] MEDS: dexAMETHasone 6 MG in SYRINGE 0 ML IV SCH (08:32)
[2021-01-02] MEDS: ATORVASTATIN 20 MG TAB PO SCH (08:32)
[2021-01-02] MEDS: LACTULOSE SYRUP 20 GM/30 ML UDC PO SCH (08:35)
[2021-01-02] MEDS: INSULIN HUMAN NPH SC SCH (09:24)
[2021-01-02] MEDS: propofoL 1,000 MG/100 ML VIAL IV SCH (09:25)
[2021-01-02] MEDS: Standard Conc 16mcg/mL; 8mg in 500mL IV SCH (10:41)
[2021-01-02] MEDS: INSULIN GLARGINE SOLOSTAR 100 UNITS/ML 3 ML PEN SQ SCH (10:42)
--- NOTE | 2021-01-02 11:30 | Critical Care Progress Note ---
Date of Service January 02, 2021 Assessment & Plan (1) Pneumonia due to COVID-19 virus: (2) Acute hypoxemic respiratory failure: (3) Diabetes: Impression: 55-year-old female with poorly controlled diabetes and reported asthma with COVID-19 pneumonia and hypoxemic respiratory failure refractory to noninvasive ventilation and high flow oxygen. Intubation day 4 Recommendations: 1. Neurologic: Continue fentanyl, Versed, and propofol. Given her si gnificant improvement, will discontinue neuromuscular blockade and continue to reassess the patient. 2. Cardiovascular: Pressors. Will initiate low-dose diuresis to try and keep the lungs on the dry side. I/O essentially even since admission. 3. Pulmonary: Acute hypoxemic respiratory failure secondary to COVID-19 pneumonia: vent settings: Assist-control/26/360/5/0 0.5. Continue dexamethason e. Continue ARDSnet strategy as tolerated. P/F ratio worsened 118. 4. ID: COVID-19 pneumonia: Continue dexamethasone. Day #3 Rocephin for E. coli UTI. Transitioned to ceftaroline which with cover MRSA in sputum, anticipate 10 day course, which will have 13 day for UTI. 5. GI: Continue tube feeding and advance to goal when NMB off. 6. Renal: Renal function normal. Monitor urine output. Electrolytes and acid- base status are acceptable. 7. Endocrine: History of diabetes. Glycemic control per protocol. 8. Heme-onc: White blood cell count is now back to normal. Continue to trend I have personally spent 45 minutes of critical care time in the direct management of this patient. This is a life/limb threatening event. This includes time spent evaluating patient, direct bedside care, chart review, placing orders, interpretation of diagnostic studies, discussion with consultants, patient, and/or family members regarding treatment decisions, as well as other required patient management activities. This time is exclusive of all separately billable procedures, and teaching time and separate from and in addition to any other critical care service time. Admission and Anticipated Discharge Date Admission Date: December 28, 2020 Subjective No overnight events patient remains intubated and sedated Review of Systems Review of Systems: Unobtainable due to endotracheal tube Physical Exam Physical Exam: General: Sedated. nontoxic. Skin: Warm, dry, Head: Atraumatic Ears, nose, mouth and throat: airway obscured by endotracheal tube Cardiovascular: Normal peripheral perfusion Respiratory: Ventilator settings reviewed Gastrointestinal: Non distended Musculoskeletal: No deformity Results & Data Results & Data ([facility]) Vital Signs (Past 12 Hours) Vital Signs Temp Pulse Resp BP Pulse Ox 01/02/21 11:12 77 28 H 89 L 01/02/21 10:24 88 110/65 86 L 01/02/21 10:00 37.5 C 85 88 L 01/02/21 09:55 86 95/52 L 88 L 01/02/21 09:25 77 102/60 85 L 01/02/21 09:00 37.7 C H 81 83 L 01/02/21 08:55 82 126/70 84 L 01/02/21 08:24 81 132/76 90 01/02/21 08:00 37.6 C H 81 90 01/02/21 07:54 81 107/64 89 L 01/02/21 07:36 83 21 90 01/02/21 07:24 37.5 C 81 96/59 L 91 01/02/21 07:00 37.4 C 78 92 01/02/21 06:54 37.4 C 79 99/63 L 92 01/02/21 06:24 37.3 C 75 107/67 91 01/02/21 05:54 37.5 C 78 93/57 L 89 L 01/02/21 05:24 37.4 C 72 96/60 L 89 L 01/02/21 04:54 37.5 C 72 97/59 L 88 L 01/02/21 04:24 37.6 C H 72 91/57 L 89 L 01/02/21 03:54 37.6 C H 72 93/55 L 90 01/02/21 03:24 37.6 C H 71 98/59 L 89 L 01/02/21 03:09 70 26 H 90 01/02/21 02:54 37.5 C 71 94/57 L 90 01/02/21 02:24 37.4 C 70 98/58 L 90 01/02/21 01:54 37.3 C 70 94/57 L 90 01/02/21 01:24 37.2 C 70 116/69 90 01/02/21 00:54 37.1 C 77 116/68 91 01/02/21 00:24 37.0 C 67 101/62 92 01/01/21 23:54 37.1 C 65 110/69 92 Laboratory Results 01/02/21 01/02/21 01/02/21 Range/Units 15:21 12:20 08:14 WBC (4.8-10.8) K/uL RBC (4.2-5.4) M/uL Hgb (12.0-16.0) g/dL POC Hgb (12.0-16.0) g/dl Hct (37-47) % POC Hct (37-47) % MCV (80-100) fL MCH (25-34) pg MCHC (32-36) g/dL RDW Std Deviation (36.4-46.3) fL RDW Coeff of Mynor (11.5-14.5) % Plt Count (130-400) K/uL MPV (7.4-10.4) fL Immature Gran % (Auto) % Neut % (Auto) % Lymph % (Auto) % [place] % (Auto) % Eos % (Auto) % Baso % (Auto) % Neut # (Auto) (1.4-6.5) K/uL Lymph # (Auto) (1.2-3.4) K/uL [place] # (Auto) (0.11-0.59) K/uL Eos # (Auto) (0-0.5) K/uL Baso # (Auto) (0-0.2) K/uL Immature Gran # (Auto) (0.00-0.02) K/uL Sample Site POC pH (7.35-7.45) POC pCO2 (35-46) mmHg POC pO2 (80-95) mmHg POC HCO3 (19-24) matthew/L POC Total CO2 (24-31) mmol/L POC Base Excess (-9-1.8) matthew/L ABG pH (Temp Correct) (7.35-7.45) ABG pCO2 (Temp Corrct (35-46) mmHg POC ABG pO2 at Pt Temp POC ABG O2 Sat (90-95) % Víctor Test O2 Delivery Device POC O2 Rate POC FiO2 % Tidal Volume PEEP POC Sodium (135-144) mmol/L Sodium (136-145) mmol/L POC Potassium (3.3-5.0) mmol/L Potassium (3.5-5.1) mmol/L Chloride (98-107) mmol/L Carbon Dioxide (21-32) mmol/L Anion Gap (3-11) BUN (7-18) mg/dl Creatinine (0.6-1.2) mg/dl Est Cr Clr Drug Dosing ml/min Est GFR ( Amer) Est GFR (Non-Af Amer) BUN/Creatinine Ratio (10-20) Glucose (70-99) mg/dl POC Glucose 272 H 236 H 158 H (70-99) mg/dl Calcium (8.5-10.1) mg/dl Phosphorus (2.5-4.9) mg/dl Magnesium (1.8-2.4) mg/dl Total Bilirubin (0.2-1) mg/dl AST (15-37) U/L ALT (12-78) U/L Alkaline Phosphatase (45-117) U/L Total Protein (6.4-8.2) gm/dl Albumin (3.4-5.0) gm/dl Globulin (2.5-4.0) gm/dl Albumin/Globulin Ratio (0.9-2) 01/02/21 01/02/21 01/02/21 Range/Units 06:04 06:04 04:36 WBC 9.93 (4.8-10.8) K/uL RBC 4.05 L (4.2-5.4) M/uL Hgb 10.4 L (12.0-16.0) g/dL POC Hgb 10.2 L (12.0-16.0) g/dl Hct 33.7 L (37-47) % POC Hct 30 L (37-47) % MCV 83.2 (80-100) fL MCH 25.7 (25-34) pg MCHC 30.9 L (32-36) g/dL RDW Std Deviation 43.5 (36.4-46.3) fL RDW Coeff of Mynor 14.2 (11.5-14.5) % Plt Count 273 (130-400) K/uL MPV 10.7 H (7.4-10.4) fL Immature Gran % (Auto) 0.5 % Neut % (Auto) 82.9 % Lymph % (Auto) 9.5 % [place] % (Auto) 6.6 % Eos % (Auto) 0.4 % Baso % (Auto) 0.1 % Neut # (Auto) 8.23 H (1.4-6.5) K/uL Lymph # (Auto) 0.94 L (1.2-3.4) K/uL [place] # (Auto) 0.66 H (0.11-0.59) K/uL Eos # (Auto) 0.04 (0-0.5) K/uL Baso # (Auto) 0.01 (0-0.2) K/uL Immature Gran # (Auto) 0.05 H (0.00-0.02) K/uL Sample Site Art Line POC pH 7.42 (7.35-7.45) POC pCO2 40 (35-46) mmHg POC pO2 59 L (80-95) mmHg POC HCO3 26 H (19-24) matthew/L POC Total CO2 27 (24-31) mmol/L POC Base Excess 1.0 (-9-1.8) matthew/L ABG pH (Temp Correct) 7.407 (7.35-7.45) ABG pCO2 (Temp Corrct 41 (35-46) mmHg POC ABG pO2 at Pt Temp 61 POC ABG O2 Sat 90.0 (90-95) % Víctor Test NA O2 Delivery Device Ventilator POC O2 Rate 26 POC FiO2 40 % Tidal Volume 360 PEEP 5 POC Sodium 143 (135-144) mmol/L Sodium 145 (136-145) mmol/L POC Potassium 3.7 (3.3-5.0) mmol/L Potassium 3.8 (3.5-5.1) mmol/L Chloride 113 H (98-107) mmol/L Carbon Dioxide 26 (21-32) mmol/L Anion Gap 6.0 (3-11) BUN 44 H (7-18) mg/dl Creatinine 0.78 (0.6-1.2) mg/dl Est Cr Clr Drug Dosing 83.5 ml/min Est GFR ( Amer) 98.5 Est GFR (Non-Af Amer) 85.0 BUN/Creatinine Ratio 56.0 H (10-20) Glucose 161 H (70-99) mg/dl POC Glucose (70-99) mg/dl Calcium 8.6 (8.5-10.1) mg/dl Phosphorus 3.1 D (2.5-4.9) mg/dl Magnesium 2.1 (1.8-2.4) mg/dl Total Bilirubin 0.3 (0.2-1) mg/dl AST 14 L (15-37) U/L ALT 15 (12-78) U/L Alkaline Phosphatase 66 (45-117) U/L Total Protein 6.4 (6.4-8.2) gm/dl Albumin 1.9 L (3.4-5.0) gm/dl Globulin 4.5 H (2.5-4.0) gm/dl Albumin/Globulin Ratio 0.4 L (0.9-2) 01/02/21 01/02/21 01/01/21 Range/Units 03:32 00:03 20:08 WBC (4.8-10.8) K/uL RBC (4.2-5.4) M/uL Hgb (12.0-16.0) g/dL POC Hgb (12.0-16.0) g/dl Hct (37-47) % POC Hct (37-47) % MCV (80-100) fL MCH (25-34) pg MCHC (32-36) g/dL RDW Std Deviation (36.4-46.3) fL RDW Coeff of Mynor (11.5-14.5) % Plt Count (130-400) K/uL MPV (7.4-10.4) fL Immature Gran % (Auto) % Neut % (Auto) % Lymph % (Auto) % [place] % (Auto) % Eos % (Auto) % Baso % (Auto) % Neut # (Auto) (1.4-6.5) K/uL Lymph # (Auto) (1.2-3.4) K/uL [place] # (Auto) (0.11-0.59) K/uL Eos # (Auto) (0-0.5) K/uL Baso # (Auto) (0-0.2) K/uL Immature Gran # (Auto) (0.00-0.02) K/uL Sample Site POC pH (7.35-7.45) POC pCO2 (35-46) mmHg POC pO2 (80-95) mmHg POC HCO3 (19-24) matthew/L POC Total CO2 (24-31) mmol/L POC Base Excess (-9-1.8) matthew/L ABG pH (Temp Correct) (7.35-7.45) ABG pCO2 (Temp Corrct (35-46) mmHg POC ABG pO2 at Pt Temp POC ABG O2 Sat (90-95) % Víctor Test O2 Delivery Device POC O2 Rate POC FiO2 % Tidal Volume PEEP POC Sodium (135-144) mmol/L Sodium (136-145) mmol/L POC Potassium (3.3-5.0) mmol/L Potassium (3.5-5.1) mmol/L Chloride (98-107) mmol/L Carbon Dioxide (21-32) mmol/L Anion Gap (3-11) BUN (7-18) mg/dl Creatinine (0.6-1.2) mg/dl Est Cr Clr Drug Dosing ml/min Est GFR ( Amer) Est GFR (Non-Af Amer) BUN/Creatinine Ratio (10-20) Glucose (70-99) mg/dl POC Glucose 135 H 160 H 191 H (70-99) mg/dl Calcium (8.5-10.1) mg/dl Phosphorus (2.5-4.9) mg/dl Magnesium (1.8-2.4) mg/dl Total Bilirubin (0.2-1) mg/dl AST (15-37) U/L ALT (12-78) U/L Alkaline Phosphatase (45-117) U/L Total Protein (6.4-8.2) gm/dl Albumin (3.4-5.0) gm/dl Globulin (2.5-4.0) gm/dl Albumin/Globulin Ratio (0.9-2) 01/01/21 Range/Units 16:02 WBC (4.8-10.8) K/uL RBC (4.2-5.4) M/uL Hgb (12.0-16.0) g/dL POC Hgb (12.0-16.0) g/dl Hct (37-47) % POC Hct (37-47) % MCV (80-100) fL MCH (25-34) pg MCHC (32-36) g/dL RDW Std Deviation (36.4-46.3) fL RDW Coeff of Mynor (11.5-14.5) % Plt Count (130-400) K/uL MPV (7.4-10.4) fL Immature Gran % (Auto) % Neut % (Auto) % Lymph % (Auto) % [place] % (Auto) % Eos % (Auto) % Baso % (Auto) % Neut # (Auto) (1.4-6.5) K/uL Lymph # (Auto) (1.2-3.4) K/uL [place] # (Auto) (0.11-0.59) K/uL Eos # (Auto) (0-0.5) K/uL Baso # (Auto) (0-0.2) K/uL Immature Gran # (Auto) (0.00-0.02) K/uL Sample Site POC pH (7.35-7.45) POC pCO2 (35-46) mmHg POC pO2 (80-95) mmHg POC HCO3 (19-24) matthew/L POC Total CO2 (24-31) mmol/L POC Base Excess (-9-1.8) matthew/L ABG pH (Temp Correct) (7.35-7.45) ABG pCO2 (Temp Corrct (35-46) mmHg POC ABG pO2 at Pt Temp POC ABG O2 Sat (90-95) % Víctor Test O2 Delivery Device POC O2 Rate POC FiO2 % Tidal Volume PEEP POC Sodium (135-144) mmol/L Sodium (136-145) mmol/L POC Potassium (3.3-5.0) mmol/L Potassium (3.5-5.1) mmol/L Chloride (98-107) mmol/L Carbon Dioxide (21-32) mmol/L Anion Gap (3-11) BUN (7-18) mg/dl Creatinine (0.6-1.2) mg/dl Est Cr Clr Drug Dosing ml/min Est GFR ( Amer) Est GFR (Non-Af Amer) BUN/Creatinine Ratio (10-20) Glucose (70-99) mg/dl POC Glucose 156 H (70-99) mg/dl Calcium (8.5-10.1) mg/dl Phosphorus (2.5-4.9) mg/dl Magnesium (1.8-2.4) mg/dl Total Bilirubin (0.2-1) mg/dl AST (15-37) U/L ALT (12-78) U/L Alkaline Phosphatase (45-117) U/L Total Protein (6.4-8.2) gm/dl Albumin (3.4-5.0) gm/dl Globulin (2.5-4.0) gm/dl Albumin/Globulin Ratio (0.9-2) Coding Level of Care Code Critical Care 1st 30-74 mins Diagnoses Pneumonia due to COVID-19 virus U07.1; J12.82 Acute hypoxemic respiratory failure J96.01 Diabetes E11.9
--- NOTE | 2021-01-02 11:39 | XRay Report ---
XR chest 1V portable CLINICAL HISTORY: Respiratory failure. COMPARISON STUDY: Chest radiograph January 01, 2021. FINDINGS: Tip of endotracheal tube is 3 cm above the natasha. Left internal jugular central line remai ns in place. Tip of nasogastric tube is at least within the body of the stomach. There is no pneumoth orax. No pleural effusion is noted. Asymmetric airspace opacities, greater within the right lung, and interstitial thickening are again noted. Right lung airspace opacity has slightly increased. IMPRESSION: 1. Satisfactory positioning of lines and tubes. 2. Slight increase in extensive right lung airspace opacity. No significant change in left lung airsp rajeev opacities. The findings favor an infectious etiology. ACT 112: Negative or not required by law. Electronically signed by: Doron Gong M.D. 01/02/2021 11:38 AM
[2021-01-02] MEDS: MIDAZOLAM BOLUS FROM BAG IV PRN ×4 (16:00→23:29)
[2021-01-02] MEDS: PEPTAMEN INTENSE VHP 1.0 CAL 1,000 ML BAG OG SCH (16:50)
[2021-01-02] MEDS ORDERED: ACETAMINOPHEN 325 MG TAB PO PRN (16:53)
--- NOTE | 2021-01-02 17:41 | Hospitalist Progress Note ---
Date of Service January 02, 2021 Assessment & Plan (1) Acute hypoxemic respiratory failure: Secondary to asthma exacerbation secondary to severe COVID-19 pneumonia, MRSA Pneumonia Possible Bacterial Pneumonia -- CXR: Multifocal bilateral airspace opacities. This likely represents a viral pneumonia. Recommend follow-up to ensure resolution. -- was on high flow O2 still desaturating, s/p mechanical intubation 12/30/20 -- Mech Vent Day # 4 -- on Versed, Fentanyl -- remains on AC mode, FiO2 40-50% -- continue Decadron Day [address] Duvall's recommendation, basing on NIH guideline Convalescent plasma given -- Heparin q8h -- blood cultures: negative sputum culture: RMSA Ceftriaxone IV x2 days transition to Ceftaroline IV day #2 UTI E coli --Ceftriaxone IV x2 days transition to Ceftaroline IV day #2 Hypertension -- monitor ARF secondary to illness -- resolved Diarrhea secondary to illness -- resolved hyperlipidemia on statin Rx DM2 insulin requiring, suboptimal control asked off recent outpatient hemoglobin A1c of 12.28 November 2020 -- Glycemic pharmacy consult DVT prophylaxis. Heparin subcu Full code discussed with EMMANUEL Vidal Admission and Anticipated Discharge Date Admission Date: December 28, 2020 Subjective ff up for COVID, MRSA pneumonia with hypoxia seen at bedside with EMMANUEL Vidal intubated, sedated, not in distress on FIO2 50% tolerated CPAP trial for 2 hours today no issues with NG tube no other issues per locomotive engineer electric of Systems Review of Systems: All systems reviewed & are unremarkable except as noted in Subjective Physical Exam Physical Exam: General- sedated, intubated, breathing with no effort or accessory muscle use Eyes- anicteric Neck- no JVD Lungs- mild rhonchi anteriorly Heart- normal rate, regular rhythm; no murmurs Abdomen- normal bowel sounds, nondistended, soft, nontender Extremities- no pretibial edema, no calf tenderness Neuro- sedated Skin- warm & dry Results & Data Results & Data ([facility]) Vital Signs (Past 12 Hours) Vital Signs Temp Pulse Resp BP Pulse Ox 01/02/21 16:25 37.6 C H 70 103/61 90 01/02/21 16:00 37.6 C H 69 92 01/02/21 15:55 37.6 C H 69 108/62 92 01/02/21 15:26 78 27 H 89 L 01/02/21 15:25 37.7 C H 71 127/69 89 L 01/02/21 15:22 37.7 C H 76 115/63 97 01/02/21 15:00 37.6 C H 66 93 01/02/21 14:55 37.6 C H 67 115/63 93 01/02/21 14:25 37.6 C H 71 109/64 93 01/02/21 14:00 37.5 C 68 93 01/02/21 13:55 37.5 C 71 105/60 93 01/02/21 13:25 37.5 C 70 113/65 93 01/02/21 13:00 37.5 C 72 92 01/02/21 12:55 37.5 C 72 111/64 91 01/02/21 12:25 37.6 C H 78 104/59 L 93 01/02/21 12:00 37.6 C H 77 118/51 L 93 01/02/21 11:55 37.6 C H 79 101/56 L 92 01/02/21 11:25 37.6 C H 76 107/63 91 01/02/21 11:12 77 28 H 89 L 01/02/21 11:00 37.6 C H 80 91 01/02/21 10:56 37.6 C H 112 H 105/86 81 L 01/02/21 10:24 88 110/65 86 L 01/02/21 10:00 37.5 C 85 88 L 01/02/21 09:55 86 95/52 L 88 L 01/02/21 09:25 77 102/60 85 L 01/02/21 09:00 37.7 C H 81 83 L 01/02/21 08:55 82 126/70 84 L 01/02/21 08:24 81 132/76 90 01/02/21 08:00 37.6 C H 81 90 01/02/21 07:54 81 107/64 89 L 01/02/21 07:36 83 21 90 01/02/21 07:24 37.5 C 81 96/59 L 91 01/02/21 07:00 37.4 C 78 92 01/02/21 06:54 37.4 C 79 99/63 L 92 01/02/21 06:24 37.3 C 75 107/67 91 01/02/21 05:54 37.5 C 78 93/57 L 89 L all noted and reviewed including below Laboratory Results Laboratory Results - last 24 hr 01/01/21 01/02/21 01/02/21 20:08 00:03 03:32 WBC RBC Hgb POC Hgb Hct POC Hct MCV MCH MCHC RDW Std Deviation RDW Coeff of Mynor Plt Count MPV Immature Gran % (Auto) Neut % (Auto) Lymph % (Auto) [place] % (Auto) Eos % (Auto) Baso % (Auto) Neut # (Auto) Lymph # (Auto) [place] # (Auto) Eos # (Auto) Baso # (Auto) Immature Gran # (Auto) Sample Site POC pH POC pCO2 POC pO2 POC HCO3 POC Total CO2 POC Base Excess ABG pH (Temp Correct) ABG pCO2 (Temp Corrct POC ABG pO2 at Pt Temp POC ABG O2 Sat Víctor Test O2 Delivery Device POC O2 Rate POC FiO2 Tidal Volume PEEP POC Sodium Sodium POC Potassium Potassium Chloride Carbon Dioxide Anion Gap BUN Creatinine Est Cr Clr Drug Dosing Est GFR ( Amer) Est GFR (Non-Af Amer) BUN/Creatinine Ratio Glucose POC Glucose 191 H 160 H 135 H Calcium Phosphorus Magnesium Total Bilirubin AST ALT Alkaline Phosphatase Total Protein Albumin Globulin Albumin/Globulin Ratio 01/02/21 01/02/21 01/02/21 04:36 06:04 06:04 WBC 9.93 RBC 4.05 L Hgb 10.4 L POC Hgb 10.2 L Hct 33.7 L POC Hct 30 L MCV 83.2 MCH 25.7 MCHC 30.9 L RDW Std Deviation 43.5 RDW Coeff of Mynor 14.2 Plt Count 273 MPV 10.7 H Immature Gran % (Auto) 0.5 Neut % (Auto) 82.9 Lymph % (Auto) 9.5 [place] % (Auto) 6.6 Eos % (Auto) 0.4 Baso % (Auto) 0.1 Neut # (Auto) 8.23 H Lymph # (Auto) 0.94 L [place] # (Auto) 0.66 H Eos # (Auto) 0.04 Baso # (Auto) 0.01 Immature Gran # (Auto) 0.05 H Sample Site Art Line POC pH 7.42 POC pCO2 40 POC pO2 59 L POC HCO3 26 H POC Total CO2 27 POC Base Excess 1.0 ABG pH (Temp Correct) 7.407 ABG pCO2 (Temp Corrct 41 POC ABG pO2 at Pt Temp 61 POC ABG O2 Sat 90.0 Víctor Test NA O2 Delivery Device Ventilator POC O2 Rate 26 POC FiO2 40 Tidal Volume 360 PEEP 5 POC Sodium 143 Sodium 145 POC Potassium 3.7 Potassium 3.8 Chloride 113 H Carbon Dioxide 26 Anion Gap 6.0 BUN 44 H Creatinine 0.78 Est Cr Clr Drug Dosing 83.5 Est GFR ( Amer) 98.5 Est GFR (Non-Af Amer) 85.0 BUN/Creatinine Ratio 56.0 H Glucose 161 H POC Glucose Calcium 8.6 Phosphorus 3.1 D Magnesium 2.1 Total Bilirubin 0.3 AST 14 L ALT 15 Alkaline Phosphatase 66 Total Protein 6.4 Albumin 1.9 L Globulin 4.5 H Albumin/Globulin Ratio 0.4 L 01/02/21 01/02/21 01/02/21 08:14 12:20 15:21 WBC RBC Hgb POC Hgb Hct POC Hct MCV MCH MCHC RDW Std Deviation RDW Coeff of Mynor Plt Count MPV Immature Gran % (Auto) Neut % (Auto) Lymph % (Auto) [place] % (Auto) Eos % (Auto) Baso % (Auto) Neut # (Auto) Lymph # (Auto) [place] # (Auto) Eos # (Auto) Baso # (Auto) Immature Gran # (Auto) Sample Site POC pH POC pCO2 POC pO2 POC HCO3 POC Total CO2 POC Base Excess ABG pH (Temp Correct) ABG pCO2 (Temp Corrct POC ABG pO2 at Pt Temp POC ABG O2 Sat Víctor Test O2 Delivery Device POC O2 Rate POC FiO2 Tidal Volume PEEP POC Sodium Sodium POC Potassium Potassium Chloride Carbon Dioxide Anion Gap BUN Creatinine Est Cr Clr Drug Dosing Est GFR ( Amer) Est GFR (Non-Af Amer) BUN/Creatinine Ratio Glucose POC Glucose 158 H 236 H 272 H Calcium Phosphorus Magnesium Total Bilirubin AST ALT Alkaline Phosphatase Total Protein Albumin Globulin Albumin/Globulin Ratio
[2021-01-02] MEDS ORDERED: PROPOFOL IV EMULSION 10 MG/ML 100 ML VIAL IV ONE (23:48)
[2021-01-03] MEDS: MIDAZOLAM HCL 125 MG/250 ML BAG IV SCH (00:27)
[2021-01-03] MEDS: INSULIN ASPART 100 UNITS/ML 3 ML PEN SC SCH ×6 (00:59→20:40)
[2021-01-03] MEDS ORDERED: PROPOFOL BOLUS FROM BAG IV PRN (01:18)
[2021-01-03] MEDS ORDERED: STAT IV Infusion **Titration per Protocol STA ×2 (01:18→07:42)
[2021-01-03] MEDS: propofoL 1,000 MG/100 ML VIAL IV SCH ×3 (01:42→20:39)
[2021-01-03] MEDS: fentaNYL DRIP 1,250 MCG/250 ML BAG IV SCH ×3 (04:00→15:25)
[2021-01-03 05:09] LABS: iSTAT Art Bld Gas pCO2 Correct 47 mmHg (35-46); iSTAT Art Bld Gas pH Corrected 7.369 (7.35-7.45); iSTAT Arterial Blood Gas HCO3 27 meg/L (19-24); iSTAT Arterial Blood Gas pCO2 46 mmHg (35-46); iSTAT Arterial Blood Gas pH 7.38 (7.35-7.45); iSTAT Arterial Blood Gas pO2 55 mmHg (80-95); iSTAT Arterial Blood Gas pO2 C 57; iSTAT Carbon Dioxide 28 mmol/L (24-31); iSTAT FiO2 40 %; iSTAT Hematocrit 29 % (37-47); iSTAT Hemoglobin 9.9 g/dl (12.0-16.0); iSTAT Potassium 3.7 mmol/L (3.3-5.0); iSTAT Site L Femoral; iSTAT Sodium 144 mmol/L (135-144)
[2021-01-03] MEDS: HEPARIN SOD 5,000 UNIT/0.5 ML VIAL SQ SCH ×2 (05:21→14:07)
[2021-01-03] MEDS: LEVOTHYROXINE SODIUM 25 MCG TABLET PO SCH (05:22)
[2021-01-03 06:21] LABS: Basophils # (auto) 0.01 K/uL (0-0.2); Basophils % (auto) 0.1 %; Eosinophils # (auto) 0.05 K/uL (0-0.5); Eosinophils % (auto) 0.5 %; Hematocrit (blood only) 32.1 % (37-47); Hemoglobin 9.9 g/dL (12.0-16.0); Immature Granulocytes # (auto) 0.07 K/uL (0.00-0.02); Immature Granulocytes % (auto) 0.7 %; Lymphocytes # (auto) 0.68 K/uL (1.2-3.4); Mean Corpuscular Hemoglobin 25.7 pg (25-34); Mean Corpuscular Hgb Conc 30.8 g/dL (32-36); Mean Corpuscular Volume 83.4 fL (80-100); Mean Platelet Volume 10.6 fL (7.4-10.4); Monocytes # (auto) 0.79 K/uL (0.11-0.59); Monocytes % (auto) 8.1 %; Neutrophils # (auto) 8.13 K/uL (1.4-6.5); Neutrophils % (auto) 83.6 %; Platelet Count 234 K/uL (130-400); RDW Coefficient of Variation 14.2 % (11.5-14.5); RDW Standard Deviation 43.4 fL (36.4-46.3); Red Blood Count 3.85 M/uL (4.2-5.4); White Blood Count 9.73 K/uL (4.8-10.8)
[2021-01-03 07:04] LABS: Albumin Level 1.8 gm/dl (3.4-5.0); BUN Creatinine Ratio 60.6 (10-20); Calcium 8.1 mg/dl (8.5-10.1); Creatinine Clr Calc Pharmacy 107.8 ml/min; Est GFR (African American) 118.1; Est GFR (Non-African American) 101.9; Magnesium 1.9 mg/dl (1.8-2.4); Potassium 3.6 mmol/L (3.5-5.1)
[2021-01-03 07:09] LABS: Albumin Globulin Ratio 0.4 (0.9-2); Bilirubin,Total 0.3 mg/dl (0.2-1); Globulin 4.4 gm/dl (2.5-4.0); Phosphorus 3.4 mg/dl (2.5-4.9); Total Protein 6.2 gm/dl (6.4-8.2)
[2021-01-03] MEDS: allopurinoL 100 MG TAB PO SCH (07:53)
[2021-01-03] MEDS: LACTULOSE SYRUP 20 GM/30 ML UDC PO SCH (07:53)
[2021-01-03] MEDS: ASPIRIN 81 MG CHEW PO SCH (07:53)
[2021-01-03] MEDS: ATORVASTATIN 20 MG TAB PO SCH (07:53)
[2021-01-03] MEDS: FAMOTIDINE 20 MG TAB PO SCH (07:53)
[2021-01-03] MEDS: dexAMETHasone 6 MG in SYRINGE 0 ML IV SCH (07:53)
[2021-01-03] MEDS: INSULIN HUMAN NPH SC SCH (08:15)
[2021-01-03] MEDS: DEXMEDETOMIDINE HCL 200 MCG in SODIUM CHLORIDE 0.9% 48 ML IV SCH ×2 (08:15→17:55)
--- NOTE | 2021-01-03 08:28 | XRay Report ---
XR chest 1V portable CLINICAL HISTORY: Respiratory failure COMPARISON STUDY: 01/02/2021 FINDINGS: There is an endotracheal tube 19 mm above the natasha. There is an enteric tube which passes into the stomach. There is a left internal jugular central venous catheter. There are bilateral pulm onary airspace opacities which appear slightly progressive on the left. The findings are consistent w ith a multifocal pneumonia[ IMPRESSION: 1. Multifocal airspace opacities consistent with multifocal pneumonia. The airspace opacities appear slightly progressive on the left. ACT 112: Negative or not required by law. Electronically signed by: Ruel Barnett M.D. 01/03/2021 8:26 AM
[2021-01-03] MEDS ORDERED: ICU PROTOCOL FOR HYPERGLYCEMIA PRN (08:51)
[2021-01-03] MEDS: INSULIN GLARGINE SOLOSTAR 100 UNITS/ML 3 ML PEN SQ SCH (08:52)
--- NOTE | 2021-01-03 09:30 | Critical Care Progress Note ---
Date of Service January 03, 2021 Assessment & Plan (1) Acute hypoxemic respiratory failure: Reason Critically Ill: 55-year-old female with PMHx significant for poorly controlled diabetes and asthma, admitted for COVID-19 pneumonia and transferred to the ICU on 12/30 for acute hypoxic respiratory failure 2/2 to this. ICU Day 5 and intubation day 5. Neuro - [facility] ICU: unobtainable (sedated) - continue Fentanyl/Versed/Propofol for sedation - added Precedex today in hopes to attempt SBT/extubation as tolerated Cardiac - no pressors required for over 24 hours, maintaining pressures/MAP>65 - follow I/Os and clinical volume status (currently appears euvolemic) - continue home Aspirin/Lipitor Respiratory - Acute hypoxic respiratory failure 2/2 COVID-19 pneumonia - Ventilator settings: CPAP, 5cm H2O, PEEP 5, FiO2 .40; P:F ratio 155 (improved from 118 yesterday) - AB.36/45/62/26/90 (improved after addition of propofol) - continue Dexamethasone 6mg IV daily x10 days - continue ARDSnet strategy as tolerated GI - continue OG tube feeds, advance to goal (no NMBA on board currently) - continue Lactulose 20g PO syrup daily RENAL/LYTES - Renal function normal, No significant electrolyte derangement - Replace lytes as needed - monitor I/Os as mentioned above - No concerns at this time ENDO - h/o diabetes, glycemic control per ICU protocol - continue Synthroid 25mcg PO daily for hypothyroidism HEME - - Stable H&H, continue to monitor CBC daily ID - COVID-19 pneumonia as well as MRSA sputum and E.coli UTI - continue dexamethasone as above - continue Ceftaroline IV x10 days (today is day 2) to cover for respiratory/urinary sources of infection - monitor fever curve LINES/IV ACCESS - - R femoral art line, L IJ VC, PIVs, OG tube, dawkins intact. DVT PROPHYLAXIS - - transitioned Heparin to Lovenox 40mg SQ Q12H (high-dose COVID-19 ppx) GI ppx: Pepcid 20mg PO QAM CODE STATUS: full code Thank you for allowing us to be part of this patient's care. Please refer to Dr. Sellers's documentation for any further recommendations. (2) Pneumonia due to COVID-19 virus: Admission and Anticipated Discharge Date Admission Date: December 28, 2020 Supervising Physician Co-Signing Physician Notes Dr. Robledo was resident physician during care of patient. I separately evaluated patient for jiménez portions of the history and the exam. I was present during the critical portion of medical decision making, and I discussed the case with the resident. I generally agree with the findings and plan. Patient oxygenation improving, still saturating in the very low 90s, mental status improved today we will add dexmedetomidine in an effort for trial of extubation tomorrow. I have called and updated the patient's . Patient was discussed in multidisciplinary rounds I have personally spent 50 minutes of critical care time in the direct management of this patient. This is a life/limb threatening event. This includes time spent evaluating patient, direct bedside care, chart review, placing orders, interpretation of diagnostic studies, discussion with consultants, patient, and/or family members regarding treatment decisions, as well as other required patient management activities. This time is exclusive of all separately billable procedures, and teaching time and separate from and in addition to any other critical care service time. Subjective Patient became agitated overnight and required addition of propofol - hemodynamically stable on vent settings, after addition of proprofol. No other acute events. Review of Systems Review of Systems: Unobtainable due to intubated/sedated. Physical Exam Physical Exam: General: intubated/sedated HEENT: Atraumatic, airway obscured by endotracheal tube Pulm: Ventilator settings reviewed Cardiac: RRR, -mrg. Radial pulses intact and symmetrical. Abdominal: soft, non-tender, non-distended, hypoactive BS x 4 Skin: warm, dry Results & Data Results & Data ([facility]) Vital Signs (Past 12 Hours) Vital Signs Temp Pulse Resp BP Pulse Ox 01/03/21 08:00 90 24 90 01/03/21 06:25 37.6 C H 73 115/66 91 01/03/21 05:55 37.6 C H 69 112/65 90 01/03/21 05:25 37.6 C H 72 103/59 L 89 L 01/03/21 04:55 37.5 C 78 115/66 88 L 01/03/21 04:25 37.4 C 83 125/71 01/03/21 04:00 78 115/66 01/03/21 03:55 37.4 C 68 104/61 90 01/03/21 03:34 65 27 H 93 01/03/21 03:25 37.4 C 65 105/63 96 01/03/21 02:55 37.4 C 66 103/65 96 01/03/21 02:25 37.5 C 67 102/61 96 01/03/21 02:00 71 01/03/21 01:55 37.4 C 66 103/65 96 01/03/21 01:25 37.5 C 69 98/58 L 95 01/03/21 01:00 37.5 C 67 94 01/03/21 00:55 37.5 C 73 97/60 L 89 L 01/03/21 00:51 37.6 C H 73 90/55 L 94 01/03/21 00:25 37.6 C H 72 87/56 L 93 01/03/21 00:00 37.5 C 85 99 01/02/21 23:55 37.5 C 100 H 141/88 H 91 01/02/21 23:26 37.3 C 118 H 174/101 H 79 L 01/02/21 23:02 67 26 H 93 01/02/21 22:55 37.3 C 67 120/67 95 01/02/21 22:25 37.2 C 72 112/66 93 01/02/21 21:55 37.2 C 75 112/67 90 Resident Activity Tracking Resident Involvement: Resident Care Provided Care Provided: Adult Hospital Medicine
[2021-01-03 10:03] LABS: iSTAT Art Bld Gas pCO2 Correct 46 mmHg (35-46); iSTAT Art Bld Gas pH Corrected 7.353 (7.35-7.45); iSTAT Arterial Blood Gas HCO3 26 meg/L (19-24); iSTAT Arterial Blood Gas pCO2 45 mmHg (35-46); iSTAT Arterial Blood Gas pH 7.36 (7.35-7.45); iSTAT Arterial Blood Gas pO2 62 mmHg (80-95); iSTAT Arterial Blood Gas pO2 C 64; iSTAT Carbon Dioxide 27 mmol/L (24-31); iSTAT FiO2 40 %; iSTAT Hematocrit 28 % (37-47); iSTAT Hemoglobin 9.5 g/dl (12.0-16.0); iSTAT Potassium 3.8 mmol/L (3.3-5.0); iSTAT Site Art Line; iSTAT Sodium 144 mmol/L (135-144)
[2021-01-03] MEDS: CEFTAROLINE FOSAMIL ACETATE 600 MG in SODIUM CHLORIDE 0.9% 250 ML IV SCH ×2 (11:37→23:41)
[2021-01-03] MEDS: PEPTAMEN INTENSE VHP 1.0 CAL 1,000 ML BAG OG SCH (14:08)
--- NOTE | 2021-01-03 14:48 | Pharmacy Report ---
Pharmacy Glycemic Short Note 2 - Date of Service January 03, 2021 - Glycemic Short BSG Results (Last 24 hours): 01/02/21 01/02/21 01/03/21 15:21 20:50 00:49 Glucose POC Glucose 272 H 200 H 172 H 01/03/21 01/03/21 01/03/21 03:55 06:00 07:56 Glucose 206 H POC Glucose 198 H 189 H 01/03/21 11:35 Glucose POC Glucose 187 H OUTPATIENT ANTIDIABETIC REGIMEN: * Levemir 24 units daily * Metformin * Empagliflozin * Dulaglutide * HbA1c 12.1 % 12/30/20 ASSESSMENT: 01/03: * BSGs remained in the 200s most of yesterday with ~111 units of total insulin * Will increase NPH today to help with mid day steroid effects and tighten novolog. * Steroids and tube feeds continue. 01/01 * BSGs trended down nicely with insulin infusion * Increased NPH to ~0.4 unit/kg dosing to be given with IV dexamethasone * Increased Lantus to 40 units SC today (full weight-based stress of 3 dosing) * BSGs have remained reasonably well-controlled while on insulin infusion at 1 unit/hr for past 2 hours - will transition insulin infusion today * Tube feeds likely to be advanced today 12/31 * BSGs have been elevated over past 24 hours (196-254 mg/dL) * Peptamen intense VHP continuous tube feeds initiated today at 10 mL/hr * Will add q4h Novolog to cover tube feeds * Continues on dexamethasone 6 mg IV daily - will cover with NPH * BSG at lunchtime of 232 mg/dL - will start insulin infusion 12/30 * BSGs well controlled yesterday, however patient required intubation this AM and is now sedated, ventilated and requiring norepi for pressor support * AM doses of ordered NPH and Lantus were not given. Nor has BSG been checked since intubation * Will give basal insulin dose (Lantus alone) w/ 1600 BSG check - dose will be based upon last 24 hr requirement * Novolog will be dosed Q 4 hrs with CF and CR doses based upon "severe" stress level * Would recommend initiating IV insulin drip per protocol, goal range 120- 180mg/dL if BSG > 220 x 1 or greater than 180 x 2 12/29 * 55 yo F with T2DM admitted 3/10 for acute resp failure 2nd COVID, asthma. Currently NPO, on BiPAP, and receiving dexamethasone * BSG's persistently >180 mg/dL x4 thus far, likely 2nd insufficient basal insulin and correction factor. Will tighten PLAN FOR INPATIENT GLYCEMIC CONTROL: * Hold outpatient oral diabetes medications * Basal insulin * Lantus 40 units today * NPH 40 units SQ daily w/ IV dexamethasone * Bolus insulin * NovoLog per scale q 4 hrs * Goal Range: Low 110 mg/dL - High 140 mg/dL * Correction Factor: 12 mg/dL/unit * Nutritional / Prandial insulin per carb ratio of 1 unit per 3 grams CHO consumed * Instructions added to cover tube feeds (Peptamen Intense VHP)
--- NOTE | 2021-01-03 15:21 | Billing Data ---
Date of Service January 03, 2021 Coding Level of Care Code Critical Care 1st - mins
--- NOTE | 2021-01-03 18:38 | Hospitalist Progress Note ---
Date of Service January 03, 2021 Assessment & Plan (1) Acute hypoxemic respiratory failure: Secondary to asthma exacerbation secondary to severe COVID-19 pneumonia, MRSA Pneumonia Possible Bacterial Pneumonia -- CXR: Multifocal bilateral airspace opacities. This likely represents a viral pneumonia. Recommend follow-up to ensure resolution. -- was on high flow O2 initially still desaturating, s/p mechanical intubation 12/30/20 -- Mech Vent Day # 5 -- transitioned to Precedex today -- tolerating AC mode, FiO2 40 -- continue Decadron Day [address] Duvall's recommendation, basing on NIH guideline Convalescent plasma given -- Lovenox SC for DVT Prophylaxis -- blood cultures: negative sputum culture: MRSA Ceftriaxone IV x2 days transition to Ceftaroline IV day #3 UTI E coli --Ceftriaxone IV x2 days transition to Ceftaroline IV day #3 Hypertension -- monitor ARF secondary to illness -- resolved Diarrhea secondary to illness -- resolved hyperlipidemia on statin Rx DM2 insulin requiring, suboptimal control asked off recent outpatient hemoglobin A1c of 12.28 November 2020 -- Glycemic pharmacy consult DVT prophylaxis. Heparin subcu Full code discussed with EMMANUEL Cabrera Admission and Anticipated Discharge Date Admission Date: December 28, 2020 Subjective ff up for acute hypoxic respiratory failure secondary to COVID Pneumonia seen with EMMANUEL Cabrera at bedside discussed care with her patient now on Precedex, tolerating CPAP mode 40% FIO2 tolerating NG tube no signs of distress no other symptoms Review of Systems Review of Systems: All systems reviewed & are unremarkable except as noted in Subjective Physical Exam Physical Exam: General- sedated, intubated no distress, acc muscle use Eyes- anicteric Neck- no JVD Lungs- mild rhonchi anteriorly Heart- normal rate, regular rhythm; no murmurs Abdomen- normal bowel sounds, nondistended, soft Extremities- no pretibial edema, no calf tenderness Neuro- sedated Skin- warm & dry Results & Data Results & Data ([facility]) Vital Signs (Past 12 Hours) Vital Signs Temp Pulse Resp BP Pulse Ox 01/03/21 16:00 56 L 124/56 L 01/03/21 15:26 54 L 17 92 01/03/21 14:46 57 L 01/03/21 12:00 37.1 C 58 L 131/58 L 92 01/03/21 11:55 37.1 C 57 L 104/63 92 01/03/21 11:30 37.2 C 58 L 91 01/03/21 11:25 37.2 C 58 L 18 102/61 91 01/03/21 11:00 37.2 C 59 L 90 01/03/21 10:55 37.2 C 58 L 101/61 90 01/03/21 10:30 37.3 C 58 L 89 L 01/03/21 10:25 37.3 C 57 L 102/61 89 L 01/03/21 10:00 37.4 C 60 89 L 01/03/21 09:55 37.4 C 60 100/61 89 L 01/03/21 09:30 37.6 C H 61 90 01/03/21 09:25 37.7 C H 62 101/59 L 90 01/03/21 09:00 37.8 C H 71 88 L 01/03/21 08:55 37.8 C H 72 102/59 L 88 L 01/03/21 08:30 37.8 C H 79 87 L 01/03/21 08:25 37.8 C H 91 H 136/80 88 L 01/03/21 08:00 37.8 C H 85 24 140/72 90 01/03/21 07:55 37.8 C H 78 125/69 90 01/03/21 07:30 37.8 C H 75 90 01/03/21 07:25 37.8 C H 77 120/64 91 01/03/21 07:00 37.7 C H 75 90 01/03/21 06:55 37.7 C H 72 107/62 91 all noted and reviewed including below Laboratory Results Laboratory Results - last 24 hr 01/02/21 01/02/21 01/03/21 20:50 21:05 00:49 WBC RBC Hgb POC Hgb Hct POC Hct MCV MCH MCHC RDW Std Deviation RDW Coeff of Mynor Plt Count MPV Immature Gran % (Auto) Neut % (Auto) Lymph % (Auto) [place] % (Auto) Eos % (Auto) Baso % (Auto) Neut # (Auto) Lymph # (Auto) [place] # (Auto) Eos # (Auto) Baso # (Auto) Immature Gran # (Auto) Sample Site POC pH POC pCO2 POC pO2 POC HCO3 POC Total CO2 POC Base Excess ABG pH (Temp Correct) ABG pCO2 (Temp Corrct POC ABG pO2 at Pt Temp POC ABG O2 Sat Víctor Test O2 Delivery Device POC O2 Rate Minute Ventilation POC FiO2 Tidal Volume PEEP POC Sodium Sodium POC Potassium Potassium Chloride Carbon Dioxide Anion Gap BUN Creatinine Est Cr Clr Drug Dosing Est GFR ( Amer) Est GFR (Non-Af Amer) BUN/Creatinine Ratio Glucose POC Glucose 200 H 172 H Calcium Phosphorus Magnesium Total Bilirubin AST ALT Alkaline Phosphatase Total Protein Albumin Globulin Albumin/Globulin Ratio Nasal Screen MRSA (PCR) Stl C. diff Tox B Gene Negative Cdiff Gene 01/03/21 01/03/21 01/03/21 03:55 04:54 06:00 WBC 9.73 RBC 3.85 L Hgb 9.9 L POC Hgb 9.9 L Hct 32.1 L POC Hct 29 L MCV 83.4 MCH 25.7 MCHC 30.8 L RDW Std Deviation 43.4 RDW Coeff of Mynor 14.2 Plt Count 234 MPV 10.6 H Immature Gran % (Auto) 0.7 Neut % (Auto) 83.6 Lymph % (Auto) 7.0 [place] % (Auto) 8.1 Eos % (Auto) 0.5 Baso % (Auto) 0.1 Neut # (Auto) 8.13 H Lymph # (Auto) 0.68 L [place] # (Auto) 0.79 H Eos # (Auto) 0.05 Baso # (Auto) 0.01 Immature Gran # (Auto) 0.07 H Sample Site L Femoral POC pH 7.38 POC pCO2 46 POC pO2 55 L POC HCO3 27 H POC Total CO2 28 POC Base Excess 2.0 H ABG pH (Temp Correct) 7.369 ABG pCO2 (Temp Corrct 47 H POC ABG pO2 at Pt Temp 57 POC ABG O2 Sat 87.0 L Víctor Test NA O2 Delivery Device Ventilator POC O2 Rate 26 Minute Ventilation 9.7 POC FiO2 40 Tidal Volume 360 PEEP 5 POC Sodium 144 Sodium POC Potassium 3.7 Potassium Chloride Carbon Dioxide Anion Gap BUN Creatinine Est Cr Clr Drug Dosing Est GFR ( Amer) Est GFR (Non-Af Amer) BUN/Creatinine Ratio Glucose POC Glucose 198 H Calcium Phosphorus Magnesium Total Bilirubin AST ALT Alkaline Phosphatase Total Protein Albumin Globulin Albumin/Globulin Ratio Nasal Screen MRSA (PCR) Stl C. diff Tox B Gene 01/03/21 01/03/21 01/03/21 06:00 07:56 09:49 WBC RBC Hgb POC Hgb 9.5 L Hct POC Hct 28 L MCV MCH MCHC RDW Std Deviation RDW Coeff of Mynor Plt Count MPV Immature Gran % (Auto) Neut % (Auto) Lymph % (Auto) [place] % (Auto) Eos % (Auto) Baso % (Auto) Neut # (Auto) Lymph # (Auto) [place] # (Auto) Eos # (Auto) Baso # (Auto) Immature Gran # (Auto) Sample Site Art Line POC pH 7.36 POC pCO2 45 POC pO2 62 L POC HCO3 26 H POC Total CO2 27 POC Base Excess 0.0 ABG pH (Temp Correct) 7.353 ABG pCO2 (Temp Corrct 46 POC ABG pO2 at Pt Temp 64 POC ABG O2 Sat 90.0 Víctor Test NA O2 Delivery Device Ventilator POC O2 Rate Minute Ventilation POC FiO2 40 Tidal Volume PEEP 5 POC Sodium 144 Sodium 146 H POC Potassium 3.8 Potassium 3.6 Chloride 116 H Carbon Dioxide 24 Anion Gap 6.0 BUN 37 H Creatinine 0.60 Est Cr Clr Drug Dosing 107.8 Est GFR ( Amer) 118.1 Est GFR (Non-Af Amer) 101.9 BUN/Creatinine Ratio 60.6 H Glucose 206 H POC Glucose 189 H Calcium 8.1 L Phosphorus 3.4 Magnesium 1.9 Total Bilirubin 0.3 AST 13 L ALT 15 Alkaline Phosphatase 69 Total Protein 6.2 L Albumin 1.8 L Globulin 4.4 H Albumin/Globulin Ratio 0.4 L Nasal Screen MRSA (PCR) Stl C. diff Tox B Gene 01/03/21 01/03/21 01/03/21 11:35 13:45 16:49 WBC RBC Hgb POC Hgb Hct POC Hct MCV MCH MCHC RDW Std Deviation RDW Coeff of Mynor Plt Count MPV Immature Gran % (Auto) Neut % (Auto) Lymph % (Auto) [place] % (Auto) Eos % (Auto) Baso % (Auto) Neut # (Auto) Lymph # (Auto) [place] # (Auto) Eos # (Auto) Baso # (Auto) Immature Gran # (Auto) Sample Site POC pH POC pCO2 POC pO2 POC HCO3 POC Total CO2 POC Base Excess ABG pH (Temp Correct) ABG pCO2 (Temp Corrct POC ABG pO2 at Pt Temp POC ABG O2 Sat Víctor Test O2 Delivery Device POC O2 Rate Minute Ventilation POC FiO2 Tidal Volume PEEP POC Sodium Sodium POC Potassium Potassium Chloride Carbon Dioxide Anion Gap BUN Creatinine Est Cr Clr Drug Dosing Est GFR ( Amer) Est GFR (Non-Af Amer) BUN/Creatinine Ratio Glucose POC Glucose 187 H 200 H Calcium Phosphorus Magnesium Total Bilirubin AST ALT Alkaline Phosphatase Total Protein Albumin Globulin Albumin/Globulin Ratio Nasal Screen MRSA (PCR) Positive A Stl C. diff Tox B Gene
[2021-01-03] MEDS: ENOXAPARIN INJ 40 MG/0.4 ML SYR SQ SCH (21:08)
[2021-01-04] MEDS: INSULIN ASPART 100 UNITS/ML 3 ML PEN SC SCH ×6 (00:11→21:38)
[2021-01-04] MEDS: DEXMEDETOMIDINE HCL 200 MCG in SODIUM CHLORIDE 0.9% 48 ML IV SCH ×7 (01:37→21:38)
[2021-01-04] MEDS: fentaNYL DRIP 1,250 MCG/250 ML BAG IV SCH ×5 (01:37→15:17)
[2021-01-04] MEDS: MIDAZOLAM HCL 125 MG/250 ML BAG IV SCH ×2 (01:38→09:34)
[2021-01-04 05:43] LABS: iSTAT Art Bld Gas pCO2 Correct 39 mmHg (35-46); iSTAT Art Bld Gas pH Corrected 7.419 (7.35-7.45); iSTAT Arterial Blood Gas HCO3 25 meg/L (19-24); iSTAT Arterial Blood Gas pCO2 39 mmHg (35-46); iSTAT Arterial Blood Gas pH 7.42 (7.35-7.45); iSTAT Arterial Blood Gas pO2 54 mmHg (80-95); iSTAT Arterial Blood Gas pO2 C 55; iSTAT Carbon Dioxide 26 mmol/L (24-31); iSTAT Hematocrit 31 % (37-47); iSTAT Hemoglobin 10.5 g/dl (12.0-16.0); iSTAT Potassium 4.3 mmol/L (3.3-5.0); iSTAT Site Art Line; iSTAT Sodium 144 mmol/L (135-144)
[2021-01-04 05:54] LABS: Basophils # (auto) 0.01 K/uL (0-0.2); Basophils % (auto) 0.1 %; Eosinophils # (auto) 0.11 K/uL (0-0.5); Eosinophils % (auto) 0.9 %; Hematocrit (blood only) 34.4 % (37-47); Hemoglobin 10.5 g/dL (12.0-16.0); Immature Granulocytes # (auto) 0.19 K/uL (0.00-0.02); Immature Granulocytes % (auto) 1.6 %; Lymphocytes # (auto) 1.16 K/uL (1.2-3.4); Mean Corpuscular Hemoglobin 25.6 pg (25-34); Mean Corpuscular Hgb Conc 30.5 g/dL (32-36); Mean Corpuscular Volume 83.9 fL (80-100); Mean Platelet Volume 11.1 fL (7.4-10.4); Monocytes # (auto) 0.81 K/uL (0.11-0.59); Neutrophils # (auto) 9.37 K/uL (1.4-6.5); Neutrophils % (auto) 80.4 %; Nucleated RBC # (auto) 0.02 K/uL (0-0); Nucleated RBC % (auto) 0.2 %; Platelet Count 236 K/uL (130-400); RDW Coefficient of Variation 13.9 % (11.5-14.5); RDW Standard Deviation 42.5 fL (36.4-46.3); White Blood Count 11.65 K/uL (4.8-10.8)
[2021-01-04] MEDS: LEVOTHYROXINE SODIUM 25 MCG TABLET PO SCH (06:11)
[2021-01-04 06:28] LABS: BUN Creatinine Ratio 52.2 (10-20); Calcium 8.8 mg/dl (8.5-10.1); Creatinine Clr Calc Pharmacy 102.6 ml/min; Est GFR (Non-African American) 99.2; Magnesium 1.8 mg/dl (1.8-2.4); Phosphorus 3.6 mg/dl (2.5-4.9); Potassium 4.2 mmol/L (3.5-5.1)
[2021-01-04] MEDS: propofoL 1,000 MG/100 ML VIAL IV SCH ×3 (06:29→18:45)
--- NOTE | 2021-01-04 08:04 | Critical Care Progress Note ---
Date of Service January 04, 2021 Assessment & Plan (1) Acute hypoxemic respiratory failure: Reason Critically Ill: 55-year-old female with PMHx significant for poorly controlled diabetes and asthma, admitted for COVID-19 pneumonia and transferred to the ICU on 12/30 for acute hypoxic respiratory failure 2/2 to this. ICU Day 6 and intubation day 6. Neuro - [facility] ICU: unobtainable (sedated) - continue Fentanyl/Versed/Propofol/Precedex for sedation Cardiac - no pressors required for over several, maintaining pressures/MAP>65 - ordered Lasix 40mg IV x1 and KCl 20mEq in hopes of improving respiratory status, given ongoing difficulty to wean vent and continuous infusions, as well as stable kidney function/electrolytes - follow I/Os and clinical volume status (currently appears euvolemic) - continue home Aspirin/Lipitor Respiratory - Acute hypoxic respiratory failure 2/2 COVID-19 pneumonia - Ventilator settings: AC/26/360/5/50, Pplat 23; P:F ratio 108 (worsened from yesterday) - AB.42/39/54/25/88 - continue Dexamethasone 6mg IV daily x10 days (today is day 6) - continue Fentanyl/Versed/Propofol/Precedex - continue ARDSnet strategy as tolerated GI - continue OG tube feeds - continue Lactulose 20g PO syrup daily RENAL/LYTES - Renal function normal, No significant electrolyte derangement - Replace lytes as needed - monitor I/Os as mentioned above - No concerns at this time ENDO - h/o diabetes, glycemic control per ICU protocol - continue Synthroid 25mcg PO daily for hypothyroidism HEME - - Stable H&H, continue to monitor CBC daily ID - COVID-19 pneumonia as well as MRSA sputum and E.coli UTI, febrile to 38.1C this morning - continue dexamethasone as above - continue Ceftaroline IV x10 days (today is day 3) to cover for respiratory/urinary sources of infection - monitor fever curve LINES/IV ACCESS - - R femoral art line, L IJ VC, PIVs, OG tube, dawkins intact. DVT PROPHYLAXIS - - continue Lovenox 40mg SQ Q12H (high-dose COVID-19 ppx) GI ppx: Pepcid 20mg PO QAM CODE STATUS: full code Thank you for allowing us to be part of this patient's care. Please refer to Dr. Sellers's documentation for any further recommendations. (2) Pneumonia due to COVID-19 virus: Admission and Anticipated Discharge Date Admission Date: December 28, 2020 Supervising Physician Co-Signing Physician Notes Dr. Robledo was resident physician during care of patient. I separately evaluated patient for jiménez portions of the history and the exam. I was present during the critical portion of medical decision making, and I discussed the case with the resident. I generally agree with the findings and plan. Worsening PF ratio today. Would consider neuromuscular blockade and pronation if no significant provement next 24 hours. Patient was discussed in multidisciplinary rounds I have personally spent 45 minutes of critical care time in the direct management of this patient. This is a life/limb threatening event. This includes time spent evaluating patient, direct bedside care, chart review, placing orders, interpretation of diagnostic studies, discussion with consultants, patient, and/or family members regarding treatment decisions, as well as other required patient management activities. This time is exclusive of all separately billable procedures, and teaching time and separate from and in addition to any other critical care service time. Subjective Unable to tolerate CPAP settings - vent back on AC settings as of last night. Was mildly agitated and hypoxic/tachypneic this morning and FiO2 was subsequently increased to .50 - vitals improving but still tachypneic. Also low- grade fever of 38.1C this morning. Review of Systems Review of Systems: Unobtainable due to intubated/sedated. Physical Exam Physical Exam: General: intubated/sedated HEENT: Atraumatic, airway obscured by endotracheal tube Pulm: Decreased air entry bilaterally, no respiratory distress on vent, Ventilator settings reviewed Cardiac: RRR, -mrg. Radial pulses intact and symmetrical. No LE edema. Abdominal: soft, non-tender, non-distended Skin: warm, dry Results & Data Results & Data ([facility]) Vital Signs (Past 12 Hours) Vital Signs Temp Pulse Resp BP Pulse Ox 01/04/21 07:18 54 L 40 H 86 L 01/04/21 06:00 37.4 C 51 L 90 01/04/21 05:49 37.4 C 52 L 154/78 H 90 01/04/21 04:49 37.2 C 50 L 152/73 H 93 01/04/21 03:02 50 L 26 H 92 01/04/21 02:49 37.1 C 51 L 134/70 92 01/04/21 01:49 37.0 C 49 L 144/75 H 93 01/04/21 00:49 36.9 C 47 L 135/74 93 01/03/21 23:00 36.7 C 51 L 91 01/03/21 22:49 36.7 C 50 L 136/80 92 01/03/21 22:48 51 L 27 H 91 01/03/21 21:26 36.8 C 57 L 111/63 89 L 01/03/21 20:57 36.5 C 72 140/70 90 01/03/21 20:26 36.4 C L 55 L 133/70 90 Resident Activity Tracking Resident Involvement: Resident Care Provided Care Provided: Adult Hospital Medicine
[2021-01-04] MEDS: ACETAMINOPHEN SUSP 325 MG/10.15 ML UDC PO PRN (08:17)
[2021-01-04] MEDS: LACTULOSE SYRUP 20 GM/30 ML UDC PO SCH (08:18)
[2021-01-04] MEDS: ASPIRIN 81 MG CHEW PO SCH (08:18)
[2021-01-04] MEDS: dexAMETHasone 6 MG in SYRINGE 0 ML IV SCH (08:19)
[2021-01-04] MEDS: ATORVASTATIN 20 MG TAB PO SCH (08:20)
[2021-01-04] MEDS: FAMOTIDINE 20 MG TAB PO SCH (08:22)
[2021-01-04] MEDS: allopurinoL 100 MG TAB PO SCH (08:23)
[2021-01-04] MEDS: ENOXAPARIN INJ 40 MG/0.4 ML SYR SQ SCH ×2 (08:23→20:44)
[2021-01-04] MEDS: INSULIN GLARGINE SOLOSTAR 100 UNITS/ML 3 ML PEN SQ SCH (09:36)
[2021-01-04] MEDS: INSULIN HUMAN NPH SC SCH (09:36)
--- NOTE | 2021-01-04 09:45 | XRay Report ---
XR chest 1V portable HISTORY: Respiratory failure. COMPARISON: Chest 01/03/2021. FINDINGS: There are low lung volumes with scattered patchy airspace opacities most pronounced within the periphery of the right lung. This has slightly progressed. Suspect a small right pleural effusion . The endotracheal tube terminates 1.6 cm from the natasha. Nasogastric tube terminates in the stomach . Left jugular central venous catheter terminates at the distal SVC. No pneumothorax. The heart remai ns mildly enlarged. IMPRESSION: 1. The endotracheal tube terminates 1.6 cm from the natasha. 2. Slight progression of the multifocal pneumonia. 3. Suspect a small right pleural effusion. ACT 112: Negative or not required by law. Electronically signed by: Abiodun Fernandez M.D. 01/04/2021 9:44 AM
[2021-01-04] MEDS ORDERED: FUROSEMIDE 40 MG in SYRINGE 0 ML IV ONE (10:45)
[2021-01-04] MEDS: POTASSIUM CHLORIDE / WTR 10 MEQ/100 ML PLCT IV SCH ×2 (10:52→12:19)
[2021-01-04] MEDS: PEPTAMEN INTENSE VHP 1.0 CAL 1,000 ML BAG OG SCH (10:59)
[2021-01-04] MEDS: CEFTAROLINE FOSAMIL ACETATE 600 MG in SODIUM CHLORIDE 0.9% 250 ML IV SCH (12:20)
--- NOTE | 2021-01-04 13:31 | Billing Data ---
Date of Service January 04, 2021 Coding Level of Care Code Critical Care 1st - mins
--- NOTE | 2021-01-04 13:54 | Hospitalist Progress Note ---
Date of Service January 04, 2021 Assessment & Plan (1) Acute hypoxemic respiratory failure: Secondary to asthma exacerbation secondary to severe COVID-19 pneumonia, MRSA Pneumonia Possible Bacterial Pneumonia Initial CXR: Multifocal bilateral airspace opacities. This likely represents a viral pneumonia. Was on high flow O2 initially and failed to maintain saturation Appreciate production operator input and recommendation S/p mechanical intubation 12/30/20 [facility] Vent Day # 6 Remains sedated as above 01/04/2021 and has not been requiring any more pressors Repeat chest x-ray did not show any improvement of the bilateral multilobar pneumonia Management of ventilator as per production operator Likely has superimposed bacterial pneumonia blood cultures: negative Sputum culture: MRSA Received ceftriaxone IV x2 days transition to Ceftaroline IV day #4 COVID-19 pneumonia Continue Decadron Day [address] Duvall's recommendation, basing on NIH guideline Convalescent plasma given UTI E coli Ceftriaxone IV x2 days transition to Ceftaroline IV day #4 Hypertension Monitor ARF secondary to illness Resolved Diarrhea secondary to illness Resolved hyperlipidemia on statin Rx DM2 insulin requiring, suboptimal control asked off recent outpatient hemoglobin A1c of 12.28 November 2020 Glycemic pharmacy consult DVT prophylaxis. Heparin subcu Lovenox SC for DVT Prophylaxis Full code Overall prognosis remains poor discussed with EMMANUEL Cabrera Admission and Anticipated Discharge Date Admission Date: December 28, 2020 Subjective 01/04/2021 The patient was seen and examined in telemetry unit in ICU bed She remains intubated and sedated Plan for extubation today failed Review of Systems Review of Systems: Unobtainable due to endotracheal tube Physical Exam Physical Exam: Lying in bed, sedated with mechanical ventilation Constitutional: well developed, well nourished, + ill appearing and + obese Eyes: Closed ENMT: external ear and nose normal, oropharynx normal Neck: trachea midline, no thyromegaly Respiratory: Auscultation: + diminished lung sounds (Bilaterally, more on the left than the right) and + crackles (Bilateral basal crackles) Cardiovascular: Rate/Rhythm: regular rate and regular rhythm Heart Sounds: no murmur Extremities: + edema (Trace edema bilaterally) Gastrointestinal (Abdomen): Inspection/Auscultation: normal bowel sounds; abdomen not distended Percussion/Palpation: abdomen soft Neurologic: Remains sedated on mechanical ventilator Lymphatic: no cervical or axillary lymphadenopathy Results & Data Results & Data ([facility]) Vital Signs (Past 12 Hours) Vital Signs Temp Pulse Resp BP Pulse Ox 01/04/21 12:00 58 L 01/04/21 10:44 58 L 31 H 92 01/04/21 08:50 38.1 C H 62 156/74 H 90 01/04/21 08:00 37.9 C H 59 L 88 L 01/04/21 07:49 37.8 C H 57 L 145/77 H 88 L 01/04/21 07:18 54 L 40 H 86 L 01/04/21 07:00 37.6 C H 58 L 91 01/04/21 06:49 37.5 C 52 L 145/79 H 91 01/04/21 06:00 37.4 C 51 L 90 01/04/21 05:49 37.4 C 52 L 154/78 H 90 01/04/21 04:49 37.2 C 50 L 152/73 H 93 01/04/21 03:02 50 L 26 H 92 01/04/21 02:49 37.1 C 51 L 134/70 92 Laboratory Results Short CBC 01/04/21 Range/Units 05:28 WBC 11.65 H (4.8-10.8) K/uL Hgb 10.5 L (12.0-16.0) g/dL Hct 34.4 L (37-47) % Plt Count 236 (130-400) K/uL BMP 01/04/21 05:28 Sodium 145 Potassium 4.2 D Chloride 115 H Carbon Dioxide 26 BUN 34 H Creatinine 0.65 Glucose 197 H Calcium 8.8 Medications Administered Current Inpatient Medications Acetaminophen (Acetaminophen Susp 325 Mg/10.15 Ml Udc) 650 mg PO Q4H PRN PRN Reason: Pain or Fever Stop: 01/29/21 14:34 Last Admin: 01/04/21 08:17 Dose: 650 mg Documented by: Acetaminophen (Acetaminophen 325 Mg Tab) 650 mg PO Q4H PRN PRN Reason: Fever Stop: 02/01/21 16:52 Allopurinol (Allopurinol 100 Mg Tab) 100 mg PO DAILY [facility] Stop: 01/28/21 08:59 Last Admin: 01/04/21 08:23 Dose: 100 mg Documented by: Aspirin (Aspirin 81 Mg Chew) 81 mg PO DAILY [facility] Stop: 01/30/21 08:59 Last Admin: 01/04/21 08:18 Dose: 81 mg Documented by: Atorvastatin Calcium (Atorvastatin 20 Mg Tab) 20 mg PO QAM SAVANNAH Stop: 01/28/21 08:59 Last Admin: 01/04/21 08:20 Dose: 20 mg Documented by: Dextrose (Dextrose 50% 50 Ml Syringe) 25 - 50 ml IV UD PRN; Protocol PRN Reason: Hypoglycemia Protocol Stop: 01/27/21 21:34 Enoxaparin Sodium (Enoxaparin Inj 40 Mg/0.4 Ml Syr) 40 mg SQ Q12H SAVANNAH Stop: 02/02/21 21:59 Last Admin: 01/04/21 08:23 Dose: 40 mg Documented by: Famotidine (Famotidine 20 Mg Tab) 20 mg PO QAM [facility] Stop: 01/30/21 11:44 Last Admin: 01/04/21 08:22 Dose: 20 mg Documented by: Fentanyl Citrate (Fentanyl Bolus From Bag) 50 mcg IV Q60M PRN PRN Reason: Pain Stop: 01/13/21 08:48 Last Admin: 01/02/21 23:29 Dose: 50 mcg Documented by: Glucagon (Glucagon For Inj 1 Mg Vial) 1 mg SQ UD PRN; Protocol PRN Reason: Hypoglycemia Protocol Stop: 01/27/21 21:34 Glucose (Glucose 10 Tabs/Tube) 4 - 8 tabs PO UD PRN; Protocol PRN Reason: Hypoglycemia Protocol Stop: 01/27/21 21:34 Glucose (Glucose 40% Gel 15 Gm Tube) 15 - 30 gm PO UD PRN; Protocol PRN Reason: Hypoglycemia Protocol Stop: 01/27/21 21:34 Dexamethasone 6 mg/ Syringe 1.5 mls @ 1 mls/min IV DAILY [facility] Stop: 01/08/21 03:49 Last Admin: 01/04/21 08:19 Dose: 1 mls/min Documented by: Fentanyl Citrate (Fentanyl Drip) 1,250 mcg in 250 mls @ 10 mls/hr IV .Q25H [facility]; Protocol Stop: 01/13/21 08:59 Last Admin: 01/04/21 11:24 Dose: Not Given Documented by: Midazolam HCl (Versed) 125 mg in 250 mls @ 4 mls/hr IV .[id number] [facility]; Protocol Stop: 01/29/21 09:14 Last Admin: 01/04/21 09:34 Dose: 2 mg/hr, 4 mls/hr Documented by: Ceftaroline Fosamil 600 mg/ (Sodium Chloride) 270 mls @ 250 mls/hr IV Q12H [facility]; Protocol Stop: 01/11/21 23:59 Last Infusion: 01/04/21 13:39 Dose: Infused Documented by: Propofol (Diprivan) 1,000 mg in 100 mls @ 18.888 mls/hr IV .Q5H18M [facility]; Protocol Stop: 01/06/21 01:29 Last Admin: 01/04/21 12:25 Dose: 40 mcg/kg/min, 18.9 mls/hr Documented by: Dexmedetomidine HCl 200 mcg/ (Sodium Chloride) 50 mls @ 23.28 mls/hr IV .Q2H9M [facility]; Protocol Stop: 01/07/21 07:45 Last Admin: 01/04/21 12:33 Dose: 1.2 mcg/kg/hr, 23.3 mls/hr Documented by: Insulin Aspart (Insulin Aspart 100 Units/Ml 3 Ml Pen) 0 units SC Q4 [facility]; Protocol Stop: 01/28/21 11:59 Last Admin: 01/04/21 12:21 Dose: 17 units Documented by: Insulin Glargine (Insulin Glargine Solostar 100 Units/Ml 3 Ml Pen) 45 units SQ DAILY@0900 [facility]; Protocol Stop: 02/03/21 08:59 Last Admin: 01/04/21 09:36 Dose: 45 units Documented by: Insulin Human NPH (Insulin Human Nph) 40 units SC DAILY@0900 [facility] Stop: 02/02/21 08:59 Last Admin: 01/04/21 09:36 Dose: 40 units Documented by: Lactulose (Lactulose Syrup 20 Gm/30 Ml Udc) 20 gm PO DAILY [facility] Stop: 01/31/21 13:29 Last Admin: 01/04/21 08:18 Dose: 20 gm Documented by: Levothyroxine Sodium (Levothyroxine Sodium 25 Mcg Tablet) [facility] Stop: 01/28/21 06:29 Last Admin: 01/04/21 06:11 Dose: 25 mcg Documented by: Midazolam HCl (Midazolam Bolus From Bag) 2 mg IV Q60M PRN PRN Reason: Sedation Stop: 01/29/21 09:05 Last Admin: 01/02/21 23:29 Dose: 2 mg Documented by: Miscellaneous (Carbohydrates For Hypoglycemia ) 15 - 30 gm PO UD PRN PRN Reason: Hypoglycemia Protocol Stop: 01/27/21 21:34 Miscellaneous Information (Pharmacy Glycemic Mgmt Consult) 1 ea N/A UD PRN PRN Reason: Consult Stop: 01/28/21 08:57 Multivitamins/Minerals (Multi Vit W/Minerals Liquid 15 Ml Udp) 15 ml NG QAM SAVANNAH Stop: 02/04/21 08:59 Nutritional Formula (Peptamen Intense Vhp 1.0 Flip 1,000 Ml Bag) 1,000 ml OG UD SAVANNAH; Protocol Stop: 01/30/21 10:29 Last Admin: 01/04/21 10:59 Dose: 1,000 ml Documented by: Propofol (Propofol Bolus From Bag) 20 mg IV Q5M PRN PRN Reason: Sedation Stop: 01/06/21 01:17
[2021-01-05] MEDS: CEFTAROLINE FOSAMIL ACETATE 600 MG in SODIUM CHLORIDE 0.9% 250 ML IV SCH ×3 (00:04→20:12)
[2021-01-05] MEDS: propofoL 1,000 MG/100 ML VIAL IV SCH ×6 (00:10→11:50)
[2021-01-05] MEDS: INSULIN ASPART 100 UNITS/ML 3 ML PEN SC SCH ×6 (00:56→20:12)
[2021-01-05] MEDS: DEXMEDETOMIDINE HCL 400 MCG in 0.9 % SODIUM CHLORIDE 96 ML IV SCH ×6 (02:19→22:09)
[2021-01-05] MEDS: LEVOTHYROXINE SODIUM 25 MCG TABLET PO SCH (04:06)
[2021-01-05 05:28] LABS: iSTAT Art Bld Gas pCO2 Correct 40 mmHg (35-46); iSTAT Art Bld Gas pH Corrected 7.468 (7.35-7.45); iSTAT Arterial Blood Gas HCO3 29 meg/L (19-24); iSTAT Arterial Blood Gas pCO2 39 mmHg (35-46); iSTAT Arterial Blood Gas pH 7.48 (7.35-7.45); iSTAT Arterial Blood Gas pO2 56 mmHg (80-95); iSTAT Arterial Blood Gas pO2 C 59; iSTAT Carbon Dioxide 30 mmol/L (24-31); iSTAT FiO2 40 %; iSTAT Hematocrit 31 % (37-47); iSTAT Hemoglobin 10.5 g/dl (12.0-16.0); iSTAT Potassium 3.4 mmol/L (3.3-5.0); iSTAT Site Art Line; iSTAT Sodium 143 mmol/L (135-144)
[2021-01-05 05:53] LABS: Basophils # (auto) 0.01 K/uL (0-0.2); Basophils % (auto) 0.1 %; Eosinophils # (auto) 0.25 K/uL (0-0.5); Eosinophils % (auto) 1.8 %; Hematocrit (blood only) 34.3 % (37-47); Hemoglobin 10.9 g/dL (12.0-16.0); Immature Granulocytes % (auto) 1.4 %; Lymphocytes # (auto) 1.42 K/uL (1.2-3.4); Lymphocytes % (auto) 10.2 %; Mean Corpuscular Hemoglobin 26.1 pg (25-34); Mean Corpuscular Hgb Conc 31.8 g/dL (32-36); Mean Corpuscular Volume 82.1 fL (80-100); Mean Platelet Volume 10.9 fL (7.4-10.4); Monocytes % (auto) 8.6 %; Neutrophils # (auto) 10.82 K/uL (1.4-6.5); Neutrophils % (auto) 77.9 %; Platelet Count 248 K/uL (130-400); RDW Coefficient of Variation 13.8 % (11.5-14.5); RDW Standard Deviation 41.5 fL (36.4-46.3); Red Blood Count 4.18 M/uL (4.2-5.4)
[2021-01-05 06:33] LABS: Albumin Level 1.8 gm/dl (3.4-5.0); Calcium 8.6 mg/dl (8.5-10.1); Est GFR (African American) 116.8; Est GFR (Non-African American) 100.8; Magnesium 1.5 mg/dl (1.8-2.4); Potassium 3.7 mmol/L (3.5-5.1)
[2021-01-05 06:36] LABS: Albumin Globulin Ratio 0.4 (0.9-2); Bilirubin,Total 0.3 mg/dl (0.2-1); Globulin 4.7 gm/dl (2.5-4.0); Phosphorus 3.6 mg/dl (2.5-4.9); Total Protein 6.5 gm/dl (6.4-8.2)
[2021-01-05] MEDS: DEXMEDETOMIDINE HCL 200 MCG in SODIUM CHLORIDE 0.9% 48 ML IV SCH ×2 (07:14)
[2021-01-05] MEDS ORDERED: POTASSIUM CHLORIDE / WTR 20 MEQ/100 ML PLCT IV ONE (08:30)
[2021-01-05] MEDS: fentaNYL DRIP 1,250 MCG/250 ML BAG IV SCH ×5 (08:38→20:38)
[2021-01-05] MEDS: MAGNESIUM SULFATE / D5W 1 GM/100 ML BAG IV SCH ×3 (08:38→12:47)
[2021-01-05] MEDS: ASPIRIN 81 MG CHEW PO SCH (08:39)
[2021-01-05] MEDS: dexAMETHasone 6 MG in SYRINGE 0 ML IV SCH (08:42)
[2021-01-05] MEDS: LACTULOSE SYRUP 20 GM/30 ML UDC PO SCH (08:42)
[2021-01-05] MEDS: MULTI VIT W/MINERALS LIQUID 15 ML UDP NG SCH (08:42)
[2021-01-05] MEDS: ATORVASTATIN 20 MG TAB PO SCH (08:44)
[2021-01-05] MEDS: FAMOTIDINE 20 MG TAB PO SCH (08:45)
--- NOTE | 2021-01-05 08:46 | Critical Care Progress Note ---
Date of Service January 05, 2021 Assessment & Plan (1) Acute hypoxemic respiratory failure: Reason Critically Ill: 55-year-old female with PMHx significant for poorly controlled diabetes and asthma, admitted for COVID-19 pneumonia and transferred to the ICU on 12/30 for acute hypoxic respiratory failure 2/2 to this. ICU Day 7 and intubation day 7. Neuro - [facility] ICU: unobtainable (sedated) - continue Fentanyl/Versed/Precedex for sedation; increase Fentanyl and wean Propofol (see below) Cardiac - no pressors required for over several, maintaining pressures/MAP>65 - ordered another Lasix 40mg IV x1 in hopes of improving respiratory status, given ongoing difficulty to wean vent and continuous infusions, as well as stable kidney function/electrolytes - follow I/Os and clinical volume status (currently appears euvolemic) - continue home Aspirin/Lipitor Respiratory - Acute hypoxic respiratory failure 2/2 COVID-19 pneumonia - s/p bronchoscopy with washout this morning - Failed vent weaning trial this AM, current ventilator settings: AC/26/360/5/40 --> PEEP increased to 14 after bronchoscopy, P:F ratio 140 (improved from yesterday) - AB.48/39/56/29 - metabolic alkalosis - CXR showing stable presence of multifocal airspace opacities - COVID pneumonia - continue Dexamethasone 6mg IV daily x10 days (today is day 7) - continue Fentanyl/Versed/Precedex for sedation - Triglycerides elevated at 372: will wean Propofol and increase Fentanyl as needed - continue ARDSnet strategy as tolerated - attempt SBT/extubation later today vs tomorrow; consider tracheostomy if unsuccessful GI - continue OG tube feeds - continue Lactulose 20g PO syrup daily RENAL/LYTES - Renal function normal, No significant electrolyte derangement - Replace lytes as needed - No concerns at this time ENDO - h/o diabetes, glycemic control per ICU protocol - continue Synthroid 25mcg PO daily for hypothyroidism HEME - - Stable H&H, continue to monitor CBC daily ID - COVID-19 pneumonia as well as MRSA sputum and E.coli UTI - febrile to 38.1C and WBC mildly increased to 14 - continue dexamethasone as above - increase Ceftaroline IV to 600mgIV Q8H for total of 10 days (today is day 4), given above findings today - monitor fever curve LINES/IV ACCESS - - R femoral art line removed and R radial art line placed; L IJ VC, PIVs, OG tube, dawkins intact. DVT PROPHYLAXIS - - continue Lovenox 40mg SQ Q12H (high-dose COVID-19 ppx) GI ppx: Pepcid 20mg PO QAM CODE STATUS: full code Thank you for allowing us to be part of this patient's care. Please refer to Dr. Sellers's documentation for any further recommendations. (2) Pneumonia due to COVID-19 virus: Admission and Anticipated Discharge Date Admission Date: December 28, 2020 Supervising Physician Co-Signing Physician Notes Dr. Robledo was resident physician during care of patient. I separately evaluated patient for jiménez portions of the history and the exam. I was present during the critical portion of medical decision making, and I discussed the case with the resident. I generally agree with the findings and plan. Undergo bronchoscopy and lung ultrasound today. She appears to have B-lines and probable significant lung water. We can continue with aggressive diuresis. On the bronchoscopy she did have some excessive dynamic airway collapse and she has a diagnosis of asthma at baseline, family also reports that she has a very strong gag reflex and I feel that as we lessen sedation patient becomes extremely anxious unable to follow commands and combined with the excessive dynamic airway collapse likely has air trapping events. We discussed risks and benefits of tracheostomy, in the next 24 to 48 hours if we are unable to liberate the patient from the ventilator I feel a tracheostomy would be indicated and at this time family is also in agreement. We will revisit this topic. Patient has a relative hypomagnesemia which has been repleted and relative hypoalbuminemia. Her triglycerides are elevated and we will transition off propofol for sedation and into Versed. Continue the dexmedetomidine for not able to extubate soon and we may just transition to sole Versed single agent. Patient was discussed in multidisciplinary rounds patient is critically ill I have personally spent 65 minutes of critical care time in the direct management of this patient. This is a life/limb threatening event. This includes time spent evaluating patient, direct bedside care, chart review, placing orders, interpretation of diagnostic studies, discussion with consultants, patient, and/or family members regarding treatment decisions, as well as other required patient management activities. This time is exclusive of all separately billable procedures, and teaching time and separate from and in addition to any other critical care service time. Subjective Patient failed vent wean trial to CPAP this morning - became tac hycardic/tachypneic/hypoxic and improved when back to AC settings. Otherwise, vent settings stable overnight and patient adequately sedated on current regimen. Review of Systems Review of Systems: Unobtainable due to intubated/sedated. Physical Exam Physical Exam: General: intubated/sedated HEENT: Atraumatic, airway obscured by endotracheal tube Pulm: Decreased air entry bilaterally, Ventilator settings reviewed Cardiac: RRR, -mrg. Radial pulses intact and symmetrical. No LE edema. Abdominal: soft, non-tender, non-distended Skin: warm, dry Results & Data Results & Data ([facility]) Vital Signs (Past 12 Hours) Vital Signs Temp Pulse Resp BP Pulse Ox 01/05/21 07:21 63 30 H 91 01/05/21 06:00 37.9 C H 57 L 33 H 126/69 90 01/05/21 05:30 37.8 C H 76 36 H 92 01/05/21 05:20 41 H 01/05/21 05:00 37.7 C H 59 L 30 H 131/69 90 01/05/21 04:30 37.7 C H 59 L 30 H 87 L 01/05/21 04:00 37.5 C 59 L 30 H 119/68 89 L 01/05/21 03:33 54 L 25 H 90 01/05/21 03:30 37.4 C 67 26 H 96 01/05/21 03:00 37.3 C 57 L 28 H 116/69 91 01/05/21 02:30 37.3 C 55 L 28 H 91 01/05/21 02:00 37.3 C 56 L 27 H 119/69 91 01/05/21 01:30 37.3 C 55 L 28 H 91 01/05/21 01:00 37.2 C 57 L 28 H 131/72 91 01/05/21 00:30 37.2 C 69 28 H 92 01/05/21 00:00 37.3 C 52 L 28 H 144/72 H 92 01/04/21 23:30 37.4 C 51 L 31 H 94 01/04/21 23:00 37.5 C 52 L 26 H 143/73 H 95 01/04/21 22:30 37.6 C H 52 L 26 H 153/79 H 95 01/04/21 22:00 37.7 C H 52 L 28 H 153/79 H 95 01/04/21 21:30 37.6 C H 51 L 26 H 95 01/04/21 21:00 37.5 C 64 26 H 143/79 H 94 Critical Care Time Critical Care Time: Yes Total Critical Care Time: 65 Resident Activity Tracking Resident Involvement: Resident Care Provided Care Provided: Adult Hospital Medicine
[2021-01-05] MEDS: allopurinoL 100 MG TAB PO SCH (08:48)
--- NOTE | 2021-01-05 09:10 | XRay Report ---
XR chest 1V portable CLINICAL HISTORY: Respiratory failure. Covid pneumonia COMPARISON STUDY: 12/07/2020 FINDINGS: There is an endotracheal tube 15 mm above the natasha. There is a left internal jugular cent ral venous catheter unchanged in position. There is an enteric tube with its tip in the stomach. Ther e are persistent asymmetric bilateral pulmonary airspace opacities consistent with a multifocal pneum onia.[ IMPRESSION: Persistent multifocal airspace opacities consistent with a multifocal pneumonia ACT 112: Negative or not required by law. Electronically signed by: Ruel Barnett M.D. 01/05/2021 9:08 AM
[2021-01-05] MEDS: INSULIN GLARGINE SOLOSTAR 100 UNITS/ML 3 ML PEN SQ SCH (09:29)
[2021-01-05] MEDS: INSULIN HUMAN NPH SC SCH (09:29)
--- NOTE | 2021-01-05 09:58 | Billing Data ---
Date of Service January 05, 2021 Coding Level of Care Code Critical Care 1st - mins
[2021-01-05] MEDS ORDERED: FUROSEMIDE 40 MG in SYRINGE 0 ML IV STA (10:47)
[2021-01-05] MEDS: POTASSIUM CHLORIDE PWD 20 MEQ PACK PO SCH ×2 (11:42→20:16)
[2021-01-05] MEDS: ENOXAPARIN INJ 40 MG/0.4 ML SYR SQ SCH ×2 (12:37→20:15)
[2021-01-05] MEDS: TUBE FEEDING WATER FLUSH OG SCH ×3 (12:38→20:14)
--- NOTE | 2021-01-05 13:55 | Pharmacy Report ---
Pharmacy Glycemic Short Note 2 - Date of Service January 05, 2021 - Glycemic Short BSG Results (Last 24 hours): 01/04/21 01/04/21 01/05/21 16:23 20:49 00:02 Glucose POC Glucose 282 H 188 H 120 H 01/05/21 01/05/21 01/05/21 04:01 05:35 08:51 Glucose 181 H POC Glucose 146 H 180 H 01/05/21 11:38 Glucose POC Glucose 228 H OUTPATIENT ANTIDIABETIC REGIMEN: * Levemir 24 units daily * Metformin * Empagliflozin * Dulaglutide * HbA1c 12.1 % 12/30/20 ASSESSMENT: 01/05: * BSGs range between 120-282 mg/dL yesterday on 161 units of total insulin. * Blood sugars continue to fluctuate. I did increase NPH dose this morning. * Only two days of steroid therapy left on current regimen. Anticipate BSGs improving and insulin needs decreasing significantly once steroids completed * Patients continues on tube feeds. 01/03: * BSGs remained in the 200s most of yesterday with ~111 units of total insulin * Will increase NPH today to help with mid day steroid effects and tighten novolog. * Steroids and tube feeds continue. 01/01 * BSGs trended down nicely with insulin infusion * Increased NPH to ~0.4 unit/kg dosing to be given with IV dexamethasone * Increased Lantus to 40 units SC today (full weight-based stress of 3 dosing) * BSGs have remained reasonably well-controlled while on insulin infusion at 1 unit/hr for past 2 hours - will transition insulin infusion today * Tube feeds likely to be advanced today 12/31 * BSGs have been elevated over past 24 hours (196-254 mg/dL) * Peptamen intense VHP continuous tube feeds initiated today at 10 mL/hr * Will add q4h Novolog to cover tube feeds * Continues on dexamethasone 6 mg IV daily - will cover with NPH * BSG at lunchtime of 232 mg/dL - will start insulin infusion 12/30 * BSGs well controlled yesterday, however patient required intubation this AM and is now sedated, ventilated and requiring norepi for pressor support * AM doses of ordered NPH and Lantus were not given. Nor has BSG been checked since intubation * Will give basal insulin dose (Lantus alone) w/ 1600 BSG check - dose will be based upon last 24 hr requirement * Novolog will be dosed Q 4 hrs with CF and CR doses based upon "severe" stress level * Would recommend initiating IV insulin drip per protocol, goal range 120- 180mg/dL if BSG > 220 x 1 or greater than 180 x 2 12/29 * 55 yo F with T2DM admitted 12/28 for acute resp failure 2nd COVID, asthma. Currently NPO, on BiPAP, and receiving dexamethasone * BSG's persistently >180 mg/dL x4 thus far, likely 2nd insufficient basal insulin and correction factor. Will tighten PLAN FOR INPATIENT GLYCEMIC CONTROL: * Hold outpatient oral diabetes medications * Basal insulin * Lantus 45 units today * NPH 45 units SQ daily w/ IV dexamethasone * Bolus insulin * NovoLog per scale q 4 hrs * Goal Range: Low 110 mg/dL - High 140 mg/dL * Correction Factor: 10 mg/dL/unit * Nutritional / Prandial insulin per carb ratio of 1 unit per 3 grams CHO consumed * Instructions added to cover tube feeds (Peptamen Intense VHP)
--- NOTE | 2021-01-05 14:28 | Procedure Note ---
Procedure Note Date of Service January 05, 2021 Procedure date: Noted above Procedure: Radial artery cannulation Pre-procedure Diagnosis: Need for invasive monitoring frequent blood draws in the setting of hypoxic respiratory failure secondary to COVID-19 Post-procedure Diagnosis: same as above Attending Staff: Grant Sellers DO Skin Prep: Chlorhexidine Anesthesia: 3 mL 1% lidocaine without epinephrine The identity of the patient was confirmed and a bedside time out was performed. Description of Procedure: After sterile prep and sterile drape utilizing standard sterile technique the superficial skin of the right radial artery was anesthetized. The target artery was identified via dynamic ultrasound guidance and entered with a 20-gauge arrow Angiocath. Pulsatile bright red blood return was noted. Via modified Seldinger technique the self-contained guidewire was advanced and the Angiocath advanced over the guidewire. The guidewire was removed and brisk arterial blood return was noted. The pressure monitor was connected, and the arterial line was secured via commercial securement device. A sterile dressing was then applied. Complications: None Estimated blood loss: Trace Patient tolerated the procedure well. Procedure Date: January 05, 2021 Procedure: Procedural Ultrasound Indication: Arterial access for invasive monitoring Attending: Grant Sellers DO Artery visualized: Yes Pulsatility of artery: Yes Artery patent: Yes Line confirmed in artery with ultrasound: Yes Impression: Successful arterial cannulation Images obtained are saved for permanent record Coding CPT Codes Tubes, Drains, and Vasc Access - Tubes, Drains, and Vasc Access: [id number] Insertion Catheter, Artery ([id number]) Tubes, Drains, and Vasc Access - Tubes, Drains, and Vasc Access: [id number] Ultrasound Guidance For Vascular ([id number]) [facility] [place] Procedure Codes (Charges) Tubes, Drains, and Vasc Access Procedure 1: Tubes, Drains, and Vasc Access: [id number] Insertion Catheter, Artery Procedure 2: Tubes, Drains, and Vasc Access: [id number] Ultrasound Guidance For Vascular
--- NOTE | 2021-01-05 14:30 | Procedure Note ---
Procedure Note Date of Service January 05, 2021 Procedure Date: Noted above Critical Care Medicine Point of Care Bedside Ultrasound Procedure: Limited Bedside Lung Ultrasound Indication: Hypoxic respiratory failure Attending: Grant Sellers DO Resident/Physician Forward Air Controller/Air Officer: Venkat Organs Examined: Lung BLUE point (upper), BLUE point (lower), Phrenic Point (axillary), PLAPS point (posterior) A lines visualized: Absent, Hemithorax: Bilateral B lines visualized: Present, Hemithorax: Bilateral Lung Sliding: Present, Hemithorax: Bilateral Tissue-like Sign: Present, Hemithorax: Bilateral posterior flaps points Shred Sign: Absent, Hemithorax: Bilateral Quad Sign: Absent, Hemithorax: Bilateral Sinusoid Sign: Absent, Hemithorax: Bilateral Type of effusions: Not applicable, Hemithorax: Not applicable Interpleural distance: Not applicable Impression: Type B profile bilaterally indicative of increase interstitial edema with consolidation in the bilateral posterior lung regions Images obtained are saved for permanent record Coding CPT Codes Pulmonary/Thoracic - Pulmonary and Thoracic: 87600 US, Chest, real time with imaging documentation ([id number]) [facility] [place] Procedure Codes (Charges) Pulmonary/Thoracic Procedure 1: Pulmonary and Thoracic: 55708 US, Chest, real time with imaging documentation
--- NOTE | 2021-01-05 14:34 | Procedure Note ---
Procedure Note Date of Service January 05, 2021 Procedure date: Noted above Procedure: fiberoptic bronchoscopy Pre-procedure indication: Pulmonary infiltrate, bilateral posterior consolidations, secretion clearance Post-procedure Diagnosis: same as above Attending Staff: Grant Sellers DO Resident/APC: Venkat Skin Prep: Not applicable Anesthesia: Continuous infusion The identity of the patient was confirmed and a bedside time out was performed. Description of Procedure: Fiberoptic bronchoscopy was performed via endotracheal tube. Bronchioalveolar lavage of the right main, middle and lower lobes as well as left posterior lobes was performed. Findings included: Excessive dynamic airway collapse in the right main and left main and right intermedius airways with greater than 75% of luminal closure, approximately 25% of the central airway and trachea closure. Mucoid impactions in the right middle and lower and left posterior lobes were thick white and creamy. Complications: None Specimens: None Estimated blood loss: Zero Coding CPT Codes Pulmonary/Thoracic - Pulmonary and Thoracic: 27066 Dx bronchoscopy/wash ([id number]) [place] Procedure Codes (Charges) Pulmonary/Thoracic Procedure 1: Pulmonary and Thoracic: 57813 Dx bronchoscopy/wash
--- NOTE | 2021-01-05 14:40 | Hospitalist Progress Note ---
Date of Service January 05, 2021 Assessment & Plan (1) Acute hypoxemic respiratory failure: Secondary to asthma exacerbation secondary to severe COVID-19 pneumonia, MRSA Pneumonia Possible Bacterial Pneumonia Initial CXR: Multifocal bilateral airspace opacities. This likely represents a viral pneumonia. Was on high flow O2 initially and failed to maintain saturation Appreciate branch account manager input and recommendation S/p mechanical intubation 12/30/20 Mech Vent Day # 7 Remains sedated as above 01/04/2021 and has not been requiring any more pressors Repeat chest x-ray did not show any improvement of the bilateral multilobar pneumonia Management of ventilator as per branch account manager Status post bronchoscopy today with clearing of bronchial secretion Not been able to extubate yet and the patient may need tracheostomy down the line Likely has superimposed bacterial pneumonia blood cultures: negative Sputum culture: MRSA Received ceftriaxone IV x2 days transition to Ceftaroline IV day #6=5 COVID-19 pneumonia Continue Decadron Day [address] Duvall's recommendation, basing on NIH guideline Convalescent plasma given Respiratory status has been improving UTI E coli Ceftriaxone IV x2 days transition to Ceftaroline IV day #5 Hypertension Monitor ARF secondary to illness Resolved Diarrhea secondary to illness Resolved hyperlipidemia on statin Rx DM2 insulin requiring, suboptimal control asked off recent outpatient hemoglobin A1c of 12.28 November 2020 Glycemic pharmacy consult DVT prophylaxis. Heparin subcu Lovenox SC for DVT Prophylaxis Full code Overall prognosis remains poor Family members have been updated by the branch account manager and I will talk to them as well Admission and Anticipated Discharge Date Admission Date: December 28, 2020 Subjective 01/04/2021 The patient was seen and examined in telemetry unit in ICU bed She remains intubated and sedated Plan for extubation today failed 01/05/2021 The patient was seen and examined in telemetry unit as ICU patient She remains ventilated and sedated Review of Systems Review of Systems: Unobtainable due to endotracheal tube Physical Exam Physical Exam: Lying in bed, sedated with mechanical ventilation Constitutional: well developed, well nourished, + ill appearing and + obese ENMT: external ear and nose normal, oropharynx normal Neck: trachea midline, no thyromegaly Respiratory: Auscultation: + diminished lung sounds (Bilaterally, more on the left than the right) and + crackles (Bilateral basal crackles) Cardiovascular: Rate/Rhythm: regular rate and regular rhythm Heart Sounds: no murmur Extremities: + edema (Trace edema bilaterally) Gastrointestinal (Abdomen): Inspection/Auscultation: normal bowel sounds; abdomen not distended Percussion/Palpation: abdomen soft Musculoskeletal: No acutely inflamed joint Neurologic: Remains intubated and on sedation. Lymphatic: no cervical or axillary lymphadenopathy Results & Data Results & Data ([facility]) Vital Signs (Past 12 Hours) Vital Signs Temp Pulse Resp BP Pulse Ox 01/05/21 10:54 37.9 C H 86 149/75 H 92 01/05/21 10:17 58 L 31 H 91 01/05/21 09:54 38.1 C H 59 L 114/67 90 01/05/21 08:54 38.1 C H 59 L 122/68 90 01/05/21 07:54 37.9 C H 57 L 121/68 91 01/05/21 07:21 63 30 H 91 01/05/21 06:54 38.0 C H 59 L 120/71 91 01/05/21 06:00 37.9 C H 57 L 33 H 126/69 90 01/05/21 05:30 37.8 C H 76 36 H 92 01/05/21 05:20 41 H 01/05/21 05:00 37.7 C H 59 L 30 H 131/69 90 01/05/21 04:30 37.7 C H 59 L 30 H 87 L 01/05/21 04:00 37.5 C 59 L 30 H 119/68 89 L 01/05/21 03:33 54 L 25 H 90 01/05/21 03:30 37.4 C 67 26 H 96 01/05/21 03:00 37.3 C 57 L 28 H 116/69 91 Laboratory Results Short CBC 01/05/21 Range/Units 05:35 WBC 13.90 H (4.8-10.8) K/uL Hgb 10.9 L (12.0-16.0) g/dL Hct 34.3 L (37-47) % Plt Count 248 (130-400) K/uL BMP 01/05/21 05:35 Sodium 142 Potassium 3.7 Chloride 109 H Carbon Dioxide 27 BUN 29 H Creatinine 0.62 Glucose 181 H Calcium 8.6 Liver Function 01/05/21 Range/Units 05:35 Total Bilirubin 0.3 (0.2-1) mg/dl AST 20 (15-37) U/L ALT 24 (12-78) U/L Alkaline Phosphatase 110 (45-117) U/L Albumin 1.8 L (3.4-5.0) gm/dl Medications Administered Current Inpatient Medications Acetaminophen (Acetaminophen Susp 325 Mg/10.15 Ml Udc) 650 mg PO Q4H PRN PRN Reason: Pain or Fever Stop: 01/29/21 14:34 Last Admin: 01/04/21 08:17 Dose: 650 mg Documented by: Acetaminophen (Acetaminophen 325 Mg Tab) 650 mg PO Q4H PRN PRN Reason: Fever Stop: 02/01/21 16:52 Last Admin: 01/05/21 08:39 Dose: 650 mg Documented by: Allopurinol (Allopurinol 100 Mg Tab) 100 mg PO DAILY SAVANNAH Stop: 01/28/21 08:59 Last Admin: 01/05/21 08:48 Dose: 100 mg Documented by: Aspirin (Aspirin 81 Mg Chew) 81 mg PO DAILY SAVANNAH Stop: 01/30/21 08:59 Last Admin: 01/05/21 08:39 Dose: 81 mg Documented by: Atorvastatin Calcium (Atorvastatin 20 Mg Tab) 20 mg PO QAM SAVANNAH Stop: 01/28/21 08:59 Last Admin: 01/05/21 08:44 Dose: 20 mg Documented by: Dextrose (Dextrose 50% 50 Ml Syringe) 25 - 50 ml IV UD PRN; Protocol PRN Reason: Hypoglycemia Protocol Stop: 01/27/21 21:34 Enoxaparin Sodium (Enoxaparin Inj 40 Mg/0.4 Ml Syr) 40 mg SQ Q12H SAVANNAH Stop: 02/02/21 21:59 Last Admin: 01/05/21 12:37 Dose: 40 mg Documented by: Famotidine (Famotidine 20 Mg Tab) 20 mg PO QAM SAVANNAH Stop: 01/30/21 11:44 Last Admin: 01/05/21 08:45 Dose: 20 mg Documented by: Fentanyl Citrate (Fentanyl Bolus From Bag) 50 mcg IV Q60M PRN PRN Reason: Pain Stop: 01/13/21 08:48 Last Admin: 01/05/21 09:30 Dose: 50 mcg Documented by: Glucagon (Glucagon For Inj 1 Mg Vial) 1 mg SQ UD PRN; Protocol PRN Reason: Hypoglycemia Protocol Stop: 01/27/21 21:34 Glucose (Glucose 10 Tabs/Tube) 4 - 8 tabs PO UD PRN; Protocol PRN Reason: Hypoglycemia Protocol Stop: 01/27/21 21:34 Glucose (Glucose 40% Gel 15 Gm Tube) 15 - 30 gm PO UD PRN; Protocol PRN Reason: Hypoglycemia Protocol Stop: 01/27/21 21:34 Heparin Sodium (Beef Lung) (Heparin 10 Unit/Ml 5 Ml Flush) 5 ml FLUSH PRN PRN PRN Reason: Flush Stop: 02/03/21 22:32 Dexamethasone 6 mg/ Syringe 1.5 mls @ 1 mls/min IV DAILY SAVANNAH Stop: 01/08/21 03:49 Last Admin: 01/05/21 08:42 Dose: 1 mls/min Documented by: Fentanyl Citrate (Fentanyl Drip) 1,250 mcg in 250 mls @ 20 mls/hr IV .[id number] SAVANNAH; Protocol Stop: 01/13/21 08:59 Last Titration: 01/05/21 13:22 Dose: 125 mcg/hr, 25 mls/hr Documented by: Midazolam HCl (Versed) 125 mg in 250 mls @ 12 mls/hr IV .[id number] SAVANNAH; Protocol Stop: 01/29/21 09:14 Last Titration: 01/05/21 11:24 Dose: 6 mg/hr, 12 mls/hr Documented by: Propofol (Diprivan) 1,000 mg in 100 mls @ 0 mls/hr IV .Q0M SAVANNAH; Protocol Stop: 01/06/21 01:29 Last Admin: 01/05/21 11:50 Dose: Not Given Documented by: Dexmedetomidine HCl 400 mcg/ (Sodium Chloride) 100 mls @ 29.1 mls/hr IV .Q3H27M SAVANNAH; Protocol Stop: 01/09/21 01:59 Last Titration: 01/05/21 13:36 Dose: 1.5 mcg/kg/hr, 29.1 mls/hr Documented by: Ceftaroline Fosamil 600 mg/ (Sodium Chloride) 270 mls @ 250 mls/hr IV Q8H SAVANNAH; Protocol Stop: 01/11/21 23:59 Last Infusion: 01/05/21 12:48 Dose: Infused Documented by: Insulin Aspart (Insulin Aspart 100 Units/Ml 3 Ml Pen) 0 units SC Q4 SAVANNAH; Protocol Stop: 01/28/21 11:59 Last Admin: 01/05/21 11:40 Dose: 15 units Documented by: Insulin Glargine (Insulin Glargine Solostar 100 Units/Ml 3 Ml Pen) 45 units SQ DAILY@0900 [facility]; Protocol Stop: 02/03/21 08:59 Last Admin: 01/05/21 09:29 Dose: 45 units Documented by: Insulin Human NPH (Insulin Human Nph) 45 units SC DAILY@0900 [facility] Stop: 02/04/21 08:59 Last Admin: 01/05/21 09:29 Dose: 45 units Documented by: Lactulose (Lactulose Syrup 20 Gm/30 Ml Udc) 20 gm PO DAILY [facility] Stop: 01/31/21 13:29 Last Admin: 01/05/21 08:42 Dose: 20 gm Documented by: Levothyroxine Sodium (Levothyroxine Sodium 25 Mcg Tablet) 25 mcg PO DAILYBB [facility] Stop: 01/28/21 06:29 Last Admin: 01/05/21 04:06 Dose: 25 mcg Documented by: Midazolam HCl (Midazolam Bolus From Bag) 2 mg IV Q60M PRN PRN Reason: Sedation Stop: 01/29/21 09:05 Last Admin: 01/02/21 23:29 Dose: 2 mg Documented by: Miscellaneous (Carbohydrates For Hypoglycemia ) 15 - 30 gm PO UD PRN PRN Reason: Hypoglycemia Protocol Stop: 01/27/21 21:34 Miscellaneous Information (Pharmacy Glycemic Mgmt Consult) 1 ea N/A UD PRN PRN Reason: Consult Stop: 01/28/21 08:57 Multivitamins/Minerals (Multi Vit W/Minerals Liquid 15 Ml Udp) 15 ml NG QAM [facility] Stop: 02/04/21 08:59 Last Admin: 01/05/21 08:42 Dose: 15 ml Documented by: Nutritional Formula (Peptamen Intense Vhp 1.0 Flip 1,000 Ml Bag) 1,000 ml OG UD [facility]; Protocol Stop: 01/30/21 10:29 Last Admin: 01/04/21 10:59 Dose: 1,000 ml Documented by: Potassium Chloride (Potassium Chloride Pwd 20 Meq Pack) 40 meq PO BID [facility] Stop: 01/05/21 21:01 Last Admin: 01/05/21 11:42 Dose: 40 meq Documented by: Propofol (Propofol Bolus From Bag) 20 mg IV Q5M PRN PRN Reason: Sedation Stop: 01/06/21 01:17 Last Admin: 01/05/21 11:25 Dose: 20 mg Documented by: Sterile Water (Tube Feeding Water Flush) 30 ml OG Q4H [facility] Stop: 02/04/21 11:59 Last Admin: 01/05/21 12:38 Dose: 30 ml Documented by:
[2021-01-05] MEDS: MIDAZOLAM BOLUS FROM BAG IV PRN ×3 (16:33→22:44)
[2021-01-05] MEDS: MIDAZOLAM HCL 125 MG/250 ML BAG IV SCH (20:14)
[2021-01-05] MEDS: ACETAMINOPHEN SUSP 325 MG/10.15 ML UDC PO PRN (20:28)
[2021-01-06] MEDS: INSULIN ASPART 100 UNITS/ML 3 ML PEN SC SCH ×6 (00:20→19:28)
[2021-01-06] MEDS: TUBE FEEDING WATER FLUSH OG SCH ×6 (00:22→19:25)
[2021-01-06] MEDS: DEXMEDETOMIDINE HCL 400 MCG in 0.9 % SODIUM CHLORIDE 96 ML IV SCH ×6 (01:45→19:25)
[2021-01-06] MEDS: CEFTAROLINE FOSAMIL ACETATE 600 MG in SODIUM CHLORIDE 0.9% 250 ML IV SCH ×3 (04:02→18:16)
[2021-01-06] MEDS: fentaNYL DRIP 1,250 MCG/250 ML BAG IV SCH ×4 (04:02→23:08)
[2021-01-06 05:54] LABS: Basophils # (auto) 0.01 K/uL (0-0.2); Basophils % (auto) 0.1 %; Eosinophils # (auto) 0.23 K/uL (0-0.5); Eosinophils % (auto) 1.8 %; Hematocrit (blood only) 33.2 % (37-47); Hemoglobin 10.3 g/dL (12.0-16.0); Immature Granulocytes # (auto) 0.13 K/uL (0.00-0.02); Lymphocytes # (auto) 1.01 K/uL (1.2-3.4); Lymphocytes % (auto) 7.9 %; Mean Corpuscular Hemoglobin 25.6 pg (25-34); Mean Corpuscular Volume 82.6 fL (80-100); Mean Platelet Volume 10.9 fL (7.4-10.4); Monocytes # (auto) 0.99 K/uL (0.11-0.59); Monocytes % (auto) 7.8 %; Neutrophils # (auto) 10.37 K/uL (1.4-6.5); Neutrophils % (auto) 81.4 %; Platelet Count 260 K/uL (130-400); RDW Coefficient of Variation 13.7 % (11.5-14.5); RDW Standard Deviation 41.3 fL (36.4-46.3); Red Blood Count 4.02 M/uL (4.2-5.4); White Blood Count 12.74 K/uL (4.8-10.8)
[2021-01-06 06:04] LABS: Allen Test Pos (Pos)
[2021-01-06 06:26] LABS: Base Excess ABG 0.5 mEq/L (-9-1.8); HCO3 ABG 27 mmol/L (19-24); Oxygen Saturation ABG 94.5 % (90-95); PCO2 ABG 49 mmHg (35-46); PO2 ABG 74 mmHg (80-95); pH ABG 7.35 (7.35-7.45)
[2021-01-06 06:44] LABS: Albumin Globulin Ratio 0.4 (0.9-2); Albumin Level 1.7 gm/dl (3.4-5.0); BUN Creatinine Ratio 57.1 (10-20); Bilirubin,Total 0.3 mg/dl (0.2-1); Creatinine Clr Calc Pharmacy 133.9 ml/min; Est GFR (African American) 127.1; Est GFR (Non-African American) 109.7; Globulin 4.7 gm/dl (2.5-4.0); Magnesium 1.9 mg/dl (1.8-2.4); Phosphorus 3.8 mg/dl (2.5-4.9); Potassium 4.6 mmol/L (3.5-5.1); Total Protein 6.4 gm/dl (6.4-8.2)
--- NOTE | 2021-01-06 07:54 | Critical Care Progress Note ---
Date of Service January 06, 2021 Assessment & Plan (1) Acute hypoxemic respiratory failure: Reason Critically Ill: 55-year-old female with PMHx significant for poorly controlled diabetes and asthma, admitted for COVID-19 pneumonia and transferred to the ICU on 12/30 for acute hypoxic respiratory failure 2/2 to this. ICU Day 8 and intubation day 8. Neuro - [facility] ICU: unobtainable (sedated) - continue Fentanyl/Versed/Precedex for sedation Cardiac - no pressors required for over several, maintaining pressures/MAP>65 - ordered another Lasix 40mg IV x1 in hopes of improving respiratory status, given ongoing difficulty to wean vent and continuous infusions, as well as stable kidney function/electrolytes - ordered BLE venous duplex to assess for DVTs given severe COVID-19 infection and extended time ventilated/sedated - follow I/Os and clinical volume status (currently appears euvolemic) - continue home Aspirin/Lipitor Respiratory - Acute hypoxic respiratory failure 2/2 COVID-19 pneumonia - current ventilator settings: AC/18/360/16/45, P:F ratio 164 (mildly improved from yesterday) - AB.35/49/74/27 - partially compensated respiratory acidosis - CXR showing slight improvement in multifocal airspace opacities - COVID-19 pneumonia - continue Dexamethasone 6mg IV daily x10 days (today is day 8) - continue Fentanyl/Versed/Precedex for sedation - proning therapy today at 1030 - continue ARDSnet strategy as tolerated - attempt SBT/extubation tomorrow; consider tracheostomy if unsuccessful GI - continue OG tube feeds - continue Lactulose 20g PO syrup daily - strict I/Os RENAL/LYTES - Renal function normal, No significant electrolyte derangement - Replace lytes as needed - No concerns at this time ENDO - h/o diabetes, glycemic control per ICU protocol - continue Synthroid 25mcg PO daily for hypothyroidism HEME - - Stable H&H, continue to monitor CBC daily ID - COVID-19 pneumonia as well as MRSA sputum and E.coli UTI - febrile to 38.1C and WBC mildly increased to 13 (but on steroids) - continue dexamethasone as above - continue Ceftaroline 600mgIV Q8H x10 days (today is day 5) - monitor fever curve LINES/IV ACCESS - - R radial art line, L IJ CVC, PIVs, OG tube, dawkins intact. DVT PROPHYLAXIS - - continue Lovenox 40mg SQ Q12H (high-dose COVID-19 ppx) GI ppx: Pepcid 20mg PO QAM CODE STATUS: full code Thank you for allowing us to be part of this patient's care. Please refer to Dr. Sellers's documentation for any further recommendations. (2) Pneumonia due to COVID-19 virus: Admission and Anticipated Discharge Date Admission Date: December 28, 2020 Supervising Physician Co-Signing Physician Notes Dr. Robledo was resident physician during care of patient. I separately evaluated patient for jiménez portions of the history and the exam. I was present during the critical portion of medical decision making, and I discussed the case with the resident. I generally agree with the findings and plan. Patient to undergo pronation therapy for hypoxic respiratory failure Patient was discussed in multidisciplinary rounds patient is critically ill I have personally spent 45 minutes of critical care time in the direct management of this patient. This is a life/limb threatening event. This includes time spent evaluating patient, direct bedside care, chart review, placing orders, interpretation of diagnostic studies, discussion with consultants, patient, and/or family members regarding treatment decisions, as well as other required patient management activities. This time is exclusive of all separately billable procedures, and teaching time and separate from and in addition to any other critical care service time. Subjective Propofol was discontinued yesterday and Versed subsequently increased - patient tolerated this well. She had an episode of bradycardia to 30s when shifted to the right for a bath but quickly returned to HR60s when shifted back to supine position. Intubated/sedated. Review of Systems Review of Systems: Unobtainable due to intubated/sedated. Physical Exam Physical Exam: General: intubated/sedated HEENT: Atraumatic, airway obscured by endotracheal tube Pulm: Decreased air entry bilaterally, Ventilator settings reviewed Cardiac: RRR, -mrg. Radial pulses intact and symmetrical. No LE edema. Abdominal: soft, mildly distended, hypoactive BSx4 Skin: warm, dry Results & Data Results & Data ([facility]) Vital Signs (Past 12 Hours) Vital Signs Temp Pulse Resp BP Pulse Ox 01/06/21 07:42 68 22 92 01/06/21 06:00 37.9 C H 66 93 01/06/21 05:54 37.9 C H 66 103/63 93 01/06/21 05:00 37.8 C H 68 93 01/06/21 04:54 37.8 C H 67 106/66 93 01/06/21 04:12 65 29 H 93 01/06/21 04:00 38.0 C H 62 100 01/06/21 03:00 37.8 C H 66 90 01/06/21 02:54 37.8 C H 65 114/66 90 01/06/21 02:00 37.8 C H 61 89 L 01/06/21 01:54 37.8 C H 61 104/60 89 L 01/06/21 01:00 37.8 C H 62 89 L 01/06/21 00:54 37.8 C H 62 109/77 89 L 01/06/21 00:53 72 01/06/21 00:00 37.9 C H 64 88 L 01/05/21 23:54 37.9 C H 62 115/66 90 01/05/21 23:35 60 30 H 91 01/05/21 23:00 38.0 C H 62 95 01/05/21 22:54 38.0 C H 61 136/78 95 01/05/21 22:00 38.0 C H 62 96 01/05/21 21:54 38.0 C H 62 114/69 95 01/05/21 21:00 38.0 C H 65 93 01/05/21 20:54 38.0 C H 65 127/76 94 01/05/21 20:00 38.0 C H 59 L 94 01/05/21 19:55 38.0 C H 74 164/92 H 93 Resident Activity Tracking Resident Involvement: Resident Care Provided Care Provided: Adult Hospital Medicine
--- NOTE | 2021-01-06 08:21 | XRay Report ---
XR chest 1V portable HISTORY: COVID PNA COMPARISON: Chest 01/05/2021. FINDINGS: Endotracheal tube terminates 2.7 cm from the natasha. Nasogastric tube terminates in the sto mach. Left jugular central venous catheter terminates in the distal SVC. Bilateral airspace opacities and a small right pleural effusion have slightly improved. No pneumothorax. IMPRESSION: 1. Satisfactory support line placement. 2. Slight improvement in the bilateral airspace opacities consistent with a pneumonia. ACT 112: Negative or not required by law. Electronically signed by: Abiodun Fernandez M.D. 01/06/2021 8:20 AM
[2021-01-06] MEDS: MULTI VIT W/MINERALS LIQUID 15 ML UDP NG SCH (08:56)
[2021-01-06] MEDS: ATORVASTATIN 20 MG TAB PO SCH (08:56)
[2021-01-06] MEDS: dexAMETHasone 6 MG in SYRINGE 0 ML IV SCH (08:56)
[2021-01-06] MEDS: LEVOTHYROXINE SODIUM 25 MCG TABLET PO SCH (08:56)
[2021-01-06] MEDS: allopurinoL 100 MG TAB PO SCH (08:56)
[2021-01-06] MEDS: FAMOTIDINE 20 MG TAB PO SCH (08:56)
[2021-01-06] MEDS: ASPIRIN 81 MG CHEW PO SCH (08:56)
[2021-01-06] MEDS: LACTULOSE SYRUP 20 GM/30 ML UDC PO SCH (08:57)
[2021-01-06] MEDS: ACETAMINOPHEN SUSP 325 MG/10.15 ML UDC PO PRN (08:57)
[2021-01-06] MEDS: INSULIN GLARGINE SOLOSTAR 100 UNITS/ML 3 ML PEN SQ SCH (09:14)
[2021-01-06] MEDS: INSULIN HUMAN NPH SC SCH (09:15)
--- NOTE | 2021-01-06 09:47 | Billing Data ---
Date of Service January 06, 2021 Coding Level of Care Code Critical Care 1st - mins
[2021-01-06] MEDS ORDERED: FUROSEMIDE 40 MG in SYRINGE 0 ML IV ONE (11:00)
[2021-01-06] MEDS: ENOXAPARIN INJ 40 MG/0.4 ML SYR SQ SCH ×2 (11:09→19:29)
[2021-01-06] MEDS: POTASSIUM CHLORIDE PWD 20 MEQ PACK PO SCH ×2 (11:13→19:30)
[2021-01-06] MEDS: MIDAZOLAM BOLUS FROM BAG IV PRN ×2 (11:21→23:00)
--- NOTE | 2021-01-06 12:58 | Pharmacy Report ---
Pharmacy Glycemic Short Note 2 - Date of Service January 06, 2021 - Glycemic Short BSG Results (Last 24 hours): 01/05/21 01/05/21 01/06/21 15:43 20:07 00:18 Glucose POC Glucose 245 H 197 H 172 H 01/06/21 01/06/21 01/06/21 04:10 05:33 08:45 Glucose 182 H POC Glucose 186 H 176 H 01/06/21 11:06 Glucose POC Glucose 273 H OUTPATIENT ANTIDIABETIC REGIMEN: * Levemir 24 units daily * Metformin * Empagliflozin * Dulaglutide * HbA1c 12.1 % 12/30/20 ASSESSMENT: 01/06 * BSGs range between 146-228 mg/dL yesterday on 161 units of total insulin * Dexamethasone Day #10, currently last dose ordered tomorrow @ 0900 AM * Did not increase NPH today, prandial BSG elevated at lunch, tightened carb ratio to 2.5 mg/dl * Suspect significant changes needed to regiman with discontinuation of ster oids/ ?extubation (TF would be held), continue to monitor. 01/05: * BSGs range between 120-282 mg/dL yesterday on 161 units of total insulin. * Blood sugars continue to fluctuate. I did increase NPH dose this morning. * Only two days of steroid therapy left on current regimen. Anticipate BSGs improving and insulin needs decreasing significantly once steroids completed * Patients continues on tube feeds. 01/03: * BSGs remained in the 200s most of yesterday with ~111 units of total insulin * Will increase NPH today to help with mid day steroid effects and tighten novolog. * Steroids and tube feeds continue. 01/01 * BSGs trended down nicely with insulin infusion * Increased NPH to ~0.4 unit/kg dosing to be given with IV dexamethasone * Increased Lantus to 40 units SC today (full weight-based stress of 3 dosing) * BSGs have remained reasonably well-controlled while on insulin infusion at 1 unit/hr for past 2 hours - will transition insulin infusion today * Tube feeds likely to be advanced today 12/31 * BSGs have been elevated over past 24 hours (196-254 mg/dL) * Peptamen intense VHP continuous tube feeds initiated today at 10 mL/hr * Will add q4h Novolog to cover tube feeds * Continues on dexamethasone 6 mg IV daily - will cover with NPH * BSG at lunchtime of 232 mg/dL - will start insulin infusion 12/30 * BSGs well controlled yesterday, however patient required intubation this AM and is now sedated, ventilated and requiring norepi for pressor support * AM doses of ordered NPH and Lantus were not given. Nor has BSG been checked since intubation * Will give basal insulin dose (Lantus alone) w/ 1600 BSG check - dose will be based upon last 24 hr requirement * Novolog will be dosed Q 4 hrs with CF and CR doses based upon "severe" stress level * Would recommend initiating IV insulin drip per protocol, goal range 120- 180mg/dL if BSG > 220 x 1 or greater than 180 x 2 12/29 * 55 yo F with T2DM admitted 12/28 for acute resp failure 2nd COVID, asthma. Currently NPO, on BiPAP, and receiving dexamethasone * BSG's persistently >180 mg/dL x4 thus far, likely 2nd insufficient basal insulin and correction factor. Will tighten PLAN FOR INPATIENT GLYCEMIC CONTROL: * Hold outpatient oral diabetes medications * Basal insulin * Lantus 45 units today * NPH 45 units SQ daily w/ IV dexamethasone * Bolus insulin * NovoLog per scale q 4 hrs * Goal Range: Low 110 mg/dL - High 140 mg/dL * Correction Factor: 10 mg/dL/unit * Nutritional / Prandial insulin per carb ratio of 1 unit per 2.5 grams CHO consumed * Instructions added to cover tube feeds (Peptamen Intense VHP)
[2021-01-06] MEDS: MIDAZOLAM HCL 125 MG/250 ML BAG IV SCH (13:05)
--- NOTE | 2021-01-06 14:32 | Hospitalist Progress Note ---
Date of Service January 06, 2021 Assessment & Plan (1) Acute hypoxemic respiratory failure: Secondary to asthma exacerbation secondary to severe COVID-19 pneumonia, MRSA Pneumonia Possible Bacterial Pneumonia Initial CXR: Multifocal bilateral airspace opacities. This likely represents a viral pneumonia. Was on high flow O2 initially and failed to maintain saturation Appreciate executive coach input and recommendation S/p mechanical intubation 12/30/20 Mech Vent Day # 8 Remains sedated as above 01/04/2021 and has not been requiring any more pressors Repeat chest x-ray did not show any improvement of the bilateral multilobar pneumonia Management of ventilator as per executive coach Status post bronchoscopy today with clearing of bronchial secretion Not been able to extubate yet and the patient may need tracheostomy down the line Getting prone therapy to improve saturation Plan to do tracheotomy on Saturday Likely has superimposed bacterial pneumonia blood cultures: negative Sputum culture: MRSA Received ceftriaxone IV x2 days transition to Ceftaroline IV day #7 COVID-19 pneumonia Continue Decadron Day [address] Duvall's recommendation, basing on NIH guideline Convalescent plasma given Respiratory status has not been improving Plan to extubate on Saturday with tracheotomy UTI E coli Ceftriaxone IV x2 days transition to Ceftaroline IV day #7 Hypertension Monitor ARF secondary to illness Resolved Diarrhea secondary to illness Resolved hyperlipidemia on statin Rx DM2 insulin requiring, suboptimal control asked off recent outpatient hemoglobin A1c of 12.28 November 2020 Glycemic pharmacy consult DVT prophylaxis. Heparin subcu Lovenox SC for DVT Prophylaxis Full code Overall prognosis remains poor Discussed with the patient daughter in detail on 01/05/2021 Admission and Anticipated Discharge Date Admission Date: December 28, 2020 Subjective 01/04/2021 The patient was seen and examined in telemetry unit in ICU bed She remains intubated and sedated Plan for extubation today failed 01/05/2021 The patient was seen and examined in telemetry unit as ICU patient She remains ventilated and sedated 01/06/2021 The patient was seen and examined in telemetry unit as ICU patient She remains intubated and sedated She is getting prone therapy now Review of Systems Review of Systems: Unobtainable due to endotracheal tube Physical Exam Physical Exam: Lying in bed, sedated with mechanical ventilation Constitutional: well developed, well nourished, + ill appearing and + obese ENMT: external ear and nose normal, oropharynx normal Neck: trachea midline, no thyromegaly Respiratory: Auscultation: + diminished lung sounds (Moderately decreased breath sounds on either sides) Cardiovascular: Rate/Rhythm: regular rate and regular rhythm Heart Sounds: no murmur Extremities: + edema (1+ edema bilaterally) Gastrointestinal (Abdomen): Inspection/Auscultation: normal bowel sounds; abdomen not distended Percussion/Palpation: abdomen soft Neurologic: Remains sedated and ventilated Lymphatic: no cervical or axillary lymphadenopathy Results & Data Results & Data ([facility]) Vital Signs (Past 12 Hours) Vital Signs Temp Pulse Resp BP Pulse Ox 01/06/21 12:00 74 01/06/21 11:05 74 20 90 01/06/21 08:00 68 01/06/21 07:42 68 22 92 01/06/21 06:00 37.9 C H 66 93 01/06/21 05:54 37.9 C H 66 103/63 93 01/06/21 05:00 37.8 C H 68 93 01/06/21 04:54 37.8 C H 67 106/66 93 01/06/21 04:12 65 29 H 93 01/06/21 04:00 38.0 C H 62 100 01/06/21 03:00 37.8 C H 66 90 01/06/21 02:54 37.8 C H 65 114/66 90 Laboratory Results Short CBC 01/06/21 Range/Units 05:33 WBC 12.74 H (4.8-10.8) K/uL Hgb 10.3 L (12.0-16.0) g/dL Hct 33.2 L (37-47) % Plt Count 260 (130-400) K/uL BMP 01/06/21 05:33 Sodium 140 Potassium 4.6 D Chloride 109 H Carbon Dioxide 28 BUN 27 H Creatinine 0.48 L Glucose 182 H Calcium 8.0 L Liver Function 01/06/21 Range/Units 05:33 Total Bilirubin 0.3 (0.2-1) mg/dl AST 16 (15-37) U/L ALT 31 (12-78) U/L Alkaline Phosphatase 143 H (45-117) U/L Albumin 1.7 L (3.4-5.0) gm/dl Medications Administered Current Inpatient Medications Acetaminophen (Acetaminophen Susp 325 Mg/10.15 Ml Udc) 650 mg PO Q4H PRN PRN Reason: Pain or Fever Stop: 01/29/21 14:34 Last Admin: 01/06/21 08:57 Dose: 650 mg Documented by: Allopurinol (Allopurinol 100 Mg Tab) 100 mg PO DAILY SAVANNAH Stop: 01/28/21 08:59 Last Admin: 01/06/21 08:56 Dose: 100 mg Documented by: Aspirin (Aspirin 81 Mg Chew) 81 mg PO DAILY SAVANNAH Stop: 01/30/21 08:59 Last Admin: 01/06/21 08:56 Dose: 81 mg Documented by: Atorvastatin Calcium (Atorvastatin 20 Mg Tab) 20 mg PO QAM SAVANNAH Stop: 01/28/21 08:59 Last Admin: 01/06/21 08:56 Dose: 20 mg Documented by: Dextrose (Dextrose 50% 50 Ml Syringe) 25 - 50 ml IV UD PRN; Protocol PRN Reason: Hypoglycemia Protocol Stop: 01/27/21 21:34 Enoxaparin Sodium (Enoxaparin Inj 40 Mg/0.4 Ml Syr) 40 mg SQ Q12H SAVANNAH Stop: 02/02/21 21:59 Last Admin: 01/06/21 11:09 Dose: 40 mg Documented by: Famotidine (Famotidine 20 Mg Tab) 20 mg PO QAM SAVANNAH Stop: 01/30/21 11:44 Last Admin: 01/06/21 08:56 Dose: 20 mg Documented by: Fentanyl Citrate (Fentanyl Bolus From Bag) 50 mcg IV Q60M PRN PRN Reason: Pain Stop: 01/13/21 08:48 Last Admin: 01/06/21 11:21 Dose: 50 mcg Documented by: Glucagon (Glucagon For Inj 1 Mg Vial) 1 mg SQ UD PRN; Protocol PRN Reason: Hypoglycemia Protocol Stop: 01/27/21 21:34 Glucose (Glucose 10 Tabs/Tube) 4 - 8 tabs PO UD PRN; Protocol PRN Reason: Hypoglycemia Protocol Stop: 01/27/21 21:34 Glucose (Glucose 40% Gel 15 Gm Tube) 15 - 30 gm PO UD PRN; Protocol PRN Reason: Hypoglycemia Protocol Stop: 01/27/21 21:34 Heparin Sodium (Beef Lung) (Heparin 10 Unit/Ml 5 Ml Flush) 5 ml FLUSH PRN PRN PRN Reason: Flush Stop: 02/03/21 22:32 Last Admin: 01/06/21 05:51 Dose: 5 ml Documented by: Dexamethasone 6 mg/ Syringe 1.5 mls @ 1 mls/min IV DAILY SAVANNAH Stop: 01/08/21 03:49 Last Admin: 01/06/21 08:56 Dose: 1 mls/min Documented by: Fentanyl Citrate (Fentanyl Drip) 1,250 mcg in 250 mls @ 40 mls/hr IV .Q6H15M SAVANNAH; Protocol Stop: 01/13/21 08:59 Last Admin: 01/06/21 10:27 Dose: 200 mcg/hr, 40 mls/hr Documented by: Midazolam HCl (Versed) 125 mg in 250 mls @ 24 mls/hr IV .[id number] SAVANNAH; Protocol Stop: 01/29/21 09:14 Last Admin: 01/06/21 13:05 Dose: 12 mg/hr, 24 mls/hr Documented by: Dexmedetomidine HCl 400 mcg/ (Sodium Chloride) 100 mls @ 29.1 mls/hr IV .Q3H27M SAVANNAH; Protocol Stop: 01/09/21 01:59 Last Admin: 01/06/21 13:06 Dose: 1.5 mcg/kg/hr, 29.1 mls/hr Documented by: Ceftaroline Fosamil 600 mg/ (Sodium Chloride) 270 mls @ 250 mls/hr IV Q8H SAVANNAH; Protocol Stop: 01/11/21 23:59 Last Infusion: 01/06/21 13:03 Dose: Infused Documented by: Insulin Aspart (Insulin Aspart 100 Units/Ml 3 Ml Pen) 0 units SC Q4 SAVANNAH; Protocol Stop: 01/28/21 11:59 Last Admin: 01/06/21 11:22 Dose: 20 units Documented by: Insulin Glargine (Insulin Glargine Solostar 100 Units/Ml 3 Ml Pen) 45 units SQ DAILY@0900 [facility]; Protocol Stop: 02/03/21 08:59 Last Admin: 01/06/21 09:14 Dose: 45 units Documented by: Insulin Human NPH (Insulin Human Nph) 45 units SC DAILY@0900 [facility] Stop: 02/04/21 08:59 Last Admin: 01/06/21 09:15 Dose: 45 units Documented by: Lactulose (Lactulose Syrup 20 Gm/30 Ml Udc) 20 gm PO DAILY [facility] Stop: 01/31/21 13:29 Last Admin: 01/06/21 08:57 Dose: 20 gm Documented by: Levothyroxine Sodium (Levothyroxine Sodium 25 Mcg Tablet) 25 mcg PO DAILYBB SAVANNAH Stop: 01/28/21 06:29 Last Admin: 01/06/21 08:56 Dose: 25 mcg Documented by: Midazolam HCl (Midazolam Bolus From Bag) 2 mg IV Q60M PRN PRN Reason: Sedation Stop: 01/29/21 09:05 Last Admin: 01/06/21 11:21 Dose: 2 mg Documented by: Miscellaneous (Carbohydrates For Hypoglycemia ) 15 - 30 gm PO UD PRN PRN Reason: Hypoglycemia Protocol Stop: 01/27/21 21:34 Miscellaneous Information (Pharmacy Glycemic Mgmt Consult) 1 ea N/A UD PRN PRN Reason: Consult Stop: 01/28/21 08:57 Multivitamins/Minerals (Multi Vit W/Minerals Liquid 15 Ml Udp) 15 ml NG QAM SAVANNAH Stop: 02/04/21 08:59 Last Admin: 01/06/21 08:56 Dose: 15 ml Documented by: Nutritional Formula (Peptamen Intense Vhp 1.0 Flip 1,000 Ml Bag) 1,000 ml OG UD SAVANNAH; Protocol Stop: 01/30/21 10:29 Last Admin: 01/04/21 10:59 Dose: 1,000 ml Documented by: Potassium Chloride (Potassium Chloride Pwd 20 Meq Pack) 40 meq PO BID SAVANNAH Stop: 01/06/21 22:14 Last Admin: 01/06/21 11:13 Dose: 40 meq Documented by: Sterile Water (Tube Feeding Water Flush) 30 ml OG Q4H SAVANNAH Stop: 02/04/21 11:59 Last Admin: 01/06/21 11:09 Dose: 30 ml Documented by:
[2021-01-07] MEDS: MIDAZOLAM BOLUS FROM BAG IV PRN ×3 (00:01→03:46)
[2021-01-07] MEDS: MIDAZOLAM HCL 125 MG/250 ML BAG IV SCH ×2 (00:03→10:19)
[2021-01-07] MEDS: INSULIN ASPART 100 UNITS/ML 3 ML PEN SC SCH ×6 (00:08→19:48)
[2021-01-07] MEDS: TUBE FEEDING WATER FLUSH OG SCH ×6 (00:09→19:48)
[2021-01-07] MEDS: fentaNYL DRIP 1,250 MCG/250 ML BAG IV SCH ×5 (00:25→10:19)
[2021-01-07] MEDS: DEXMEDETOMIDINE HCL 400 MCG in 0.9 % SODIUM CHLORIDE 96 ML IV SCH ×4 (00:47→02:26)
[2021-01-07] MEDS ORDERED: STAT IV Infusion **Titration per Protocol STA (02:08)
[2021-01-07] MEDS ORDERED: NOREPINEPHRINE/D5W 8 MG/508 ML IV ONE (02:15)
[2021-01-07] MEDS ORDERED: NOREPINEPHRINE/D5W 8 MG/508 ML BAG IV SCH (02:15)
[2021-01-07] MEDS: CEFTAROLINE FOSAMIL ACETATE 600 MG in SODIUM CHLORIDE 0.9% 250 ML IV SCH ×3 (02:23→19:47)
[2021-01-07 04:13] LABS: iSTAT Art Bld Gas pCO2 Correct 51 mmHg (35-46); iSTAT Art Bld Gas pH Corrected 7.334 (7.35-7.45); iSTAT Arterial Blood Gas HCO3 27 meg/L (19-24); iSTAT Arterial Blood Gas pCO2 49 mmHg (35-46); iSTAT Arterial Blood Gas pH 7.35 (7.35-7.45); iSTAT Arterial Blood Gas pO2 65 mmHg (80-95); iSTAT Arterial Blood Gas pO2 C 69; iSTAT Carbon Dioxide 28 mmol/L (24-31); iSTAT FiO2 30 %; iSTAT Hematocrit 34 % (37-47); iSTAT Hemoglobin 11.6 g/dl (12.0-16.0); iSTAT Potassium 4.6 mmol/L (3.3-5.0); iSTAT Site L Brachial; iSTAT Sodium 141 mmol/L (135-144)
[2021-01-07 04:30] LABS: BUN Creatinine Ratio 45.4 (10-20); Calcium 8.7 mg/dl (8.5-10.1); Est GFR (African American) 116.2; Est GFR (Non-African American) 100.3; Magnesium 1.6 mg/dl (1.8-2.4); Potassium 4.7 mmol/L (3.5-5.1)
[2021-01-07 04:31] LABS: Phosphorus 3.8 mg/dl (2.5-4.9)
[2021-01-07 04:59] LABS: Basophils # (auto) 0.02 K/uL (0-0.2); Basophils % (auto) 0.1 %; Eosinophils # (auto) 0.34 K/uL (0-0.5); Eosinophils % (auto) 1.7 %; Hematocrit (blood only) 34.2 % (37-47); Hemoglobin 10.5 g/dL (12.0-16.0); Immature Granulocytes # (auto) 0.32 K/uL (0.00-0.02); Immature Granulocytes % (auto) 1.6 %; Lymphocytes % (auto) 6.9 %; Mean Corpuscular Hemoglobin 25.7 pg (25-34); Mean Corpuscular Hgb Conc 30.7 g/dL (32-36); Mean Corpuscular Volume 83.8 fL (80-100); Mean Platelet Volume 11.4 fL (7.4-10.4); Monocytes # (auto) 2.37 K/uL (0.11-0.59); Monocytes % (auto) 11.7 %; Platelet Count 376 K/uL (130-400); RDW Coefficient of Variation 13.8 % (11.5-14.5); RDW Standard Deviation 41.5 fL (36.4-46.3); Red Blood Count 4.08 M/uL (4.2-5.4); White Blood Count 20.25 K/uL (4.8-10.8)
[2021-01-07] MEDS: LEVOTHYROXINE SODIUM 25 MCG TABLET PO SCH (06:13)
[2021-01-07] MEDS: MAGNESIUM SULFATE / D5W 1 GM/100 ML BAG IV SCH ×2 (06:38→09:04)
[2021-01-07] MEDS ORDERED: VECURONIUM BROMIDE 10 MG VIAL IV ONE (06:59)
--- NOTE | 2021-01-07 07:59 | Procedure Note ---
Procedure Note Date of Service January 07, 2021 Procedure: Fiberoptic bronchoscopy for percutaneous tracheostomy tube placement Attending/Rug Cutter Helper: Dr. Sellers, Chalo Hanson PA-C Anesthetic/Sedation: Current Drips - Fentanyl, Versed, Precedex; Paralytic - Vecuronium Indication: Respiratory failure with ventilator dependence in the setting of COVID-19 pneumonia Consent was signed and placed on the chart prior to procedure. Indication, risks, and benefits were explained at length. A time-out was completed verifying correct patient, procedure, site, positioning, and implant(s) or special equipment if applicable. After appropriate anesthesia with paralysis, the fiberoptic bronchoscope was introduced into the ET tube without issue. I was able to appreciate the natasha with appropriate distance from the end of the ET tube. Thick milky colored mucus secretions appreciated in the large bronchus times bilaterally. With the aid of respiratory therapy, the ET tube was slowly withdrawn with careful caution to prevent dislodgment of tube. After appropriate visualization was achieved, percutaneous tracheostomy tube procedure was performed by my attending physician. Please see separate note. Guide needle was witnessed penetrating the anterior surface of the tracheal rings without penetration into the posterior trachea. Guidewire was noted to descend into the airway. Serial dilation was appreciated and visualized without penetration into the posterior trachea. Tracheostomy tube placement was noted with visualization of cuff inflation. After percutaneous tracheostomy tube was complete, therapeutic bronchoscopy was performed for airway clearing and evaluation. Findings: Trachea without signs of trauma, bleeding, or laceration. Main Natasha atraumatic. LEFT Mainstem Bronchus: DONALD thick mucopurulent milky white secretion appreciated. 15 mL of sterile saline was used to clear airway. Post suctioning demonstrated well-appearing airway otherwise without hyperemia or worsening purulence. LLL Similar mucopurulent milky white secretions appreciated. These were easily suctioned with 15 mL of sterile saline. Post suctioning demonstrated well-appearing airway without hyperemia, bleeding, or ongoing purulence. RIGHT Mainstem Bronchus: Large amounts of milky white mucopurulent secretions appreciated. The lower airways were each individually instilled with 15 mL's of sterile saline and suctioned. Post suctioning images demonstrated clear airways with generally well-appearing tissues without signs of hyperemia, bleeding, or injury. Complications: NONE Impression: Successful visualization of percutaneous tracheostomy tube placement with post procedure therapeutic bronchoscopy and suctioning of secretions. Coding CPT Codes Pulmonary/Thoracic - Pulmonary and Thoracic: 57194 Bronchoscopy, reclear airway ([id number]) [facility] [place] (Charges) Pulmonary/Thoracic Procedure 2: Pulmonary and Thoracic: 09470 Bronchoscopy, reclear airway
[2021-01-07] MEDS: dexAMETHasone 6 MG in SYRINGE 0 ML IV SCH (09:05)
[2021-01-07] MEDS: ENOXAPARIN INJ 40 MG/0.4 ML SYR SQ SCH (09:06)
[2021-01-07] MEDS: MULTI VIT W/MINERALS LIQUID 15 ML UDP NG SCH (09:20)
[2021-01-07] MEDS: ATORVASTATIN 20 MG TAB PO SCH (09:20)
[2021-01-07] MEDS: FAMOTIDINE 20 MG TAB PO SCH (09:20)
[2021-01-07] MEDS: LACTULOSE SYRUP 20 GM/30 ML UDC PO SCH (09:20)
[2021-01-07] MEDS: allopurinoL 100 MG TAB PO SCH (09:20)
[2021-01-07] MEDS: ASPIRIN 81 MG CHEW PO SCH (09:20)
[2021-01-07] MEDS: INSULIN HUMAN NPH SC SCH (09:41)
[2021-01-07] MEDS: INSULIN GLARGINE SOLOSTAR 100 UNITS/ML 3 ML PEN SQ SCH (09:41)
--- NOTE | 2021-01-07 10:31 | Procedure Note ---
Procedure Note Date of Service January 07, 2021 Procedure Date: Noted Above Procedure: Percutaneous Dilatational Tracheotomy with Bronchoscopic Guidance Pre-procedure Diagnosis & Indication: Chronic respiratory failure and need for ongoing mechanical ventilation Post-procedure Diagnosis: same as above Prior to Procedure: Informed Consent: The risks, benefits, indications, potential complications, and alternatives were explained to the patient's and informed consent was obtained. Performed by: Grant Sellers DO Bronchoscopy Technical Staff Assistant: Alfonso Hanson Preprocedure: The identity of the patient was confirmed and a bedside time out was performed. [place] protocol was followed for this procedure. Prior to the initiation of sedation or the procedure, a timeout was performed. The patients identity was verified by confirming the patients wrist band for name, date of , and medical record number. Everyone in the room was in agreement with the patient identify, the procedure to be performed, consent was in place and matched the planned procedure, and the procedure site. The area was cleaned with a CHG scrub and draped with large sterile barrier. Hand hygiene was performed, and cap, mask, sterile gown, and sterile gloves were worn. The patient was covered by a large sterile drape. Sterile technique was maintained for the entire procedure. Anesthesia: The patient was intubated and sedated prior to the procedure. Additional midazolam and fentanyl was given for deep sedation. Please refer to the accompanying procedural sedation form for additional details. Once the patient was adequately sedated, vecuronium was administered for paralysis. Description of Procedure: The patient was placed in the supine position. The anterior neck was prepped and draped in usual sterile fashion. 1% lidocaine was administered approximately 2 fingerbreadths above the sternal notch for local anesthesia. The bronchoscope was introduced through the endotracheal tube and the trachea was properly visualized. The endotracheal tube was then gradually withdrawn within the trachea under direct bronchoscopic visualization. The area of the surgical site was initially transilluminated, and proper midline position was confirmed by bouncing the needle from the tracheostomy tray over the trachea with bronchoscopic examination. The needle was advanced into the trachea and proper positioning was confirmed with direct visualization. The needle was then removed leaving a white outer cannula in position. The wire from the tracheostomy tray was then advanced through the white outer cannula. The cannula was then removed. The initial small, blue dilator was then advanced over the wire into the trachea for initial dilation. The large, tapered dilator was then advanced over the wire into the trachea. The dilator was removed leaving the wire and white inner cannula in position. A number 8 percutaneous Shiley tracheostomy tube with appropriate inner cannula was then advanced over the wire and white inner cannula into the trachea. Proper positioning was confirmed with bronchoscopic visualization. The tracheostomy tube was then sutured in place with four nylon sutures. It was further secured with a tracheostomy tie. Estimated blood loss: Less than 5 mL. Complications: None immediate. Coding CPT Codes ENT - ENT: 91923 Incision of windpipe ([id number]) [facility] [place] Procedure Codes (Charges) ENT ENT: 81190 Incision of windpipe
--- NOTE | 2021-01-07 10:36 | XRay Report ---
XR chest 1V portable HISTORY: COVID-19 PNA COMPARISON: Chest 01/06/2021. FINDINGS: Lines and tubes remain unchanged in position. No pneumothorax. Small right pleural effusion persists. The heart is borderline enlarged. There are low lung volumes. Bilateral patchy airspace op acities, right greater than the left are not significant changed. This is consistent with a multifoca l pneumonia. IMPRESSION: 1. Satisfactory support line placement. 2. No change in the multifocal airspace opacities consistent with a pneumonia. ACT 112: Negative or not required by law. Electronically signed by: Abiodun Fernandez M.D. 01/07/2021 10:35 AM
--- NOTE | 2021-01-07 10:37 | Critical Care Progress Note ---
Date of Service January 07, 2021 Assessment & Plan (1) Pneumonia due to COVID-19 virus: Reason Critically Ill: 55-year-old female with PMHx significant for poorly controlled diabetes and asthma, admitted for COVID-19 pneumonia and transferred to the ICU on 12/30 for acute hypoxic respiratory failure 2/2 to this. ICU Day 9 Neuro - [facility] ICU: unobtainable (sedated) -Decrease sedation likely to only require Precedex Cardiac - no pressors required for over several, maintaining pressures/MAP>65 - ordered BLE venous duplex to assess for DVTs given severe COVID-19 infection and extended time ventilated/sedated - follow I/Os and clinical volume status (currently appears euvolemic) - continue home Aspirin/Lipitor Respiratory - Acute hypoxic respiratory failure 2/2 COVID-19 pneumonia - underwent tracheostomy 01/07 - continue Dexamethasone 6mg IV daily x10 days (today is day 9) - continue ARDSnet strategy as tolerated GI - continue OG tube feeds - continue Lactulose 20g PO syrup daily - strict I/Os RENAL/LYTES - Renal function normal, No significant electrolyte derangement - Replace lytes as needed - No concerns at this time ENDO - h/o diabetes, glycemic control per ICU protocol - continue Synthroid 25mcg PO daily for hypothyroidism HEME - - Stable H&H, continue to monitor CBC daily -Bilateral venous duplex pending ID - COVID-19 pneumonia as well as MRSA sputum and E.coli UTI - continue dexamethasone as above - continue Ceftaroline 600mgIV Q8H x10 days (today is day 6) - monitor fever curve LINES/IV ACCESS - - L IJ CVC, PIVs, OG tube, dawkins intact. DVT PROPHYLAXIS - - continue Lovenox 40mg SQ Q12H (high-dose COVID-19 ppx) GI ppx: Pepcid 20mg PO QAM CODE STATUS: full code (2) E. coli UTI: (3) MRSA pneumonia: Admission and Anticipated Discharge Date Admission Date: December 28, 2020 Supervising Physician Co-Signing Physician Notes I have personally spent 40 minutes of critical care time in the direct tae gement of this patient. This is a life/limb threatening event. This includes time spent evaluating patient, direct bedside care, chart review, placing orders, interpretation of diagnostic studies, discussion with consultants, patient, and/or family members regarding treatment decisions, as well as other required patient management activities. This time is exclusive of all separately billable procedures, and teaching time and separate from and in addition to any other critical care service time. Subjective No overnight events, remains sedated Overnight right radial arterial line became dislodged Review of Systems Review of Systems: Unobtainable due to endotracheal tube Physical Exam Physical Exam: General: Sedated. nontoxic. Skin: Warm, dry, Head: Atraumatic Ears, nose, mouth and throat: Obscured by endotracheal tube Cardiovascular: Normal peripheral perfusion Respiratory: Ventilator settings reviewed Gastrointestinal: Non distended Musculoskeletal: No deformity Results & Data Results & Data ([facility]) Vital Signs (Past 12 Hours) Vital Signs Temp Pulse Resp BP Pulse Ox 01/07/21 08:00 54 L 18 91 01/07/21 04:26 38.1 C H 63 115/55 L 89 L 01/07/21 04:12 38.1 C H 62 109/56 L 89 L 01/07/21 04:00 38.0 C H 61 100 01/07/21 03:57 38.0 C H 64 18 144/69 H 99 01/07/21 03:26 38.0 C H 58 L 143/62 H 93 01/07/21 03:11 38.0 C H 56 L 129/58 L 92 01/07/21 03:00 37.9 C H 57 L 92 01/07/21 02:56 37.9 C H 58 L 130/59 L 92 01/07/21 02:41 37.9 C H 58 L 127/59 L 91 01/07/21 02:28 37.9 C H 52 L 108/52 L 91 01/07/21 02:26 37.9 C H 51 L 103/50 L 91 01/07/21 02:24 37.9 C H 60 83/42 L 89 L 01/07/21 02:12 37.9 C H 61 73/43 L 88 L 01/07/21 02:07 37.9 C H 61 76/44 L 88 L 01/07/21 02:03 37.9 C H 61 90 01/07/21 02:02 37.9 C H 63 92/51 L 90 01/07/21 02:00 37.9 C H 68 84/39 L 89 L 01/07/21 01:58 37.9 C H 63 76/42 L 87 L 01/07/21 01:56 37.9 C H 59 L 79/44 L 87 L 01/07/21 01:41 37.9 C H 67 128/61 91 01/07/21 01:30 37.9 C H 60 89 L 01/07/21 01:11 37.9 C H 65 142/70 H 100 01/07/21 01:00 37.9 C H 54 L 88 L 01/07/21 00:55 37.9 C H 56 L 93/51 L 89 L 01/07/21 00:30 37.9 C H 70 87 L 01/07/21 00:01 53 L 01/07/21 00:00 37.9 C H 77 90 01/06/21 23:55 37.9 C H 56 L 101/56 L 91 01/06/21 23:04 38.0 C H 60 92 01/06/21 23:00 38.0 C H 52 L 91 01/06/21 22:58 38.0 C H 57 L 94/56 L 91 01/06/21 22:55 38.0 C H 56 L 77/49 L 90 Laboratory Results 01/07/21 01/07/21 01/07/21 Range/Units 09:09 03:53 03:33 WBC (4.8-10.8) K/uL RBC (4.2-5.4) M/uL Hgb (12.0-16.0) g/dL POC Hgb 11.6 L (12.0-16.0) g/dl Hct (37-47) % POC Hct 34 L (37-47) % MCV (80-100) fL MCH (25-34) pg MCHC (32-36) g/dL RDW Std Deviation (36.4-46.3) fL RDW Coeff of Mynor (11.5-14.5) % Plt Count (130-400) K/uL MPV (7.4-10.4) fL Immature Gran % (Auto) % Neut % (Auto) % Lymph % (Auto) % Pen[place] % (Auto) % Eos % (Auto) % Baso % (Auto) % Neut # (Auto) (1.4-6.5) K/uL Lymph # (Auto) (1.2-3.4) K/uL Pen[place] # (Auto) (0.11-0.59) K/uL Eos # (Auto) (0-0.5) K/uL Baso # (Auto) (0-0.2) K/uL Immature Gran # (Auto) (0.00-0.02) K/uL Sample Site L Brachial POC pH 7.35 (7.35-7.45) POC pCO2 49 H (35-46) mmHg POC pO2 65 L (80-95) mmHg POC HCO3 27 H (19-24) matthew/L POC Total CO2 28 (24-31) mmol/L POC Base Excess 1.0 (-9-1.8) matthew/L ABG pH (Temp Correct) 7.334 L (7.35-7.45) ABG pCO2 (Temp Corrct 51 H (35-46) mmHg POC ABG pO2 at Pt Temp 69 POC ABG O2 Sat 91.0 (90-95) % Víctor Test NA O2 Delivery Device Ventilator POC O2 Rate 18 Minute Ventilation 6.91 POC FiO2 30 % Tidal Volume 360 PEEP 10 POC Sodium 141 (135-144) mmol/L Sodium 141 (136-145) mmol/L POC Potassium 4.6 (3.3-5.0) mmol/L Potassium 4.7 (3.5-5.1) mmol/L Chloride 108 H (98-107) mmol/L Carbon Dioxide 29 (21-32) mmol/L Anion Gap 4.0 (3-11) BUN 28 H (7-18) mg/dl Creatinine 0.63 (0.6-1.2) mg/dl Est Cr Clr Drug Dosing 102.0 ml/min Est GFR ( Amer) 116.2 Est GFR (Non-Af Amer) 100.3 BUN/Creatinine Ratio 45.4 H (10-20) Glucose 102 H (70-99) mg/dl POC Glucose 137 H (70-99) mg/dl Calcium 8.7 (8.5-10.1) mg/dl Phosphorus 3.8 (2.5-4.9) mg/dl Magnesium 1.6 L (1.8-2.4) mg/dl 01/07/21 01/06/21 01/06/21 Range/Units 03:33 23:52 19:27 WBC 20.25 H (4.8-10.8) K/uL RBC 4.08 L (4.2-5.4) M/uL Hgb 10.5 L (12.0-16.0) g/dL POC Hgb (12.0-16.0) g/dl Hct 34.2 L (37-47) % POC Hct (37-47) % MCV 83.8 (80-100) fL MCH 25.7 (25-34) pg MCHC 30.7 L (32-36) g/dL RDW Std Deviation 41.5 (36.4-46.3) fL RDW Coeff of Mynor 13.8 (11.5-14.5) % Plt Count 376 (130-400) K/uL MPV 11.4 H (7.4-10.4) fL Immature Gran % (Auto) 1.6 % Neut % (Auto) 78.0 % Lymph % (Auto) 6.9 % Pennington % (Auto) 11.7 % Eos % (Auto) 1.7 % Baso % (Auto) 0.1 % Neut # (Auto) 15.80 H (1.4-6.5) K/uL Lymph # (Auto) 1.40 (1.2-3.4) K/uL Pennington # (Auto) 2.37 H (0.11-0.59) K/uL Eos # (Auto) 0.34 (0-0.5) K/uL Baso # (Auto) 0.02 (0-0.2) K/uL Immature Gran # (Auto) 0.32 H (0.00-0.02) K/uL Sample Site POC pH (7.35-7.45) POC pCO2 (35-46) mmHg POC pO2 (80-95) mmHg POC HCO3 (19-24) matthew/L POC Total CO2 (24-31) mmol/L POC Base Excess (-9-1.8) matthew/L ABG pH (Temp Correct) (7.35-7.45) ABG pCO2 (Temp Corrct (35-46) mmHg POC ABG pO2 at Pt Temp POC ABG O2 Sat (90-95) % Víctor Test O2 Delivery Device POC O2 Rate Minute Ventilation POC FiO2 % Tidal Volume PEEP POC Sodium (135-144) mmol/L Sodium (136-145) mmol/L POC Potassium (3.3-5.0) mmol/L Potassium (3.5-5.1) mmol/L Chloride (98-107) mmol/L Carbon Dioxide (21-32) mmol/L Anion Gap (3-11) BUN (7-18) mg/dl Creatinine (0.6-1.2) mg/dl Est Cr Clr Drug Dosing ml/min Est GFR ( Amer) Est GFR (Non-Af Amer) BUN/Creatinine Ratio (10-20) Glucose (70-99) mg/dl POC Glucose 97 141 H (70-99) mg/dl Calcium (8.5-10.1) mg/dl Phosphorus (2.5-4.9) mg/dl Magnesium (1.8-2.4) mg/dl 01/06/21 01/06/21 Range/Units 15:36 11:06 WBC (4.8-10.8) K/uL RBC (4.2-5.4) M/uL Hgb (12.0-16.0) g/dL POC Hgb (12.0-16.0) g/dl Hct (37-47) % POC Hct (37-47) % MCV (80-100) fL MCH (25-34) pg MCHC (32-36) g/dL RDW Std Deviation (36.4-46.3) fL RDW Coeff of Mynor (11.5-14.5) % Plt Count (130-400) K/uL MPV (7.4-10.4) fL Immature Gran % (Auto) % Neut % (Auto) % Lymph % (Auto) % Penning[place] % (Auto) % Eos % (Auto) % Baso % (Auto) % Neut # (Auto) (1.4-6.5) K/uL Lymph # (Auto) (1.2-3.4) K/uL Pen[place] # (Auto) (0.11-0.59) K/uL Eos # (Auto) (0-0.5) K/uL Baso # (Auto) (0-0.2) K/uL Immature Gran # (Auto) (0.00-0.02) K/uL Sample Site POC pH (7.35-7.45) POC pCO2 (35-46) mmHg POC pO2 (80-95) mmHg POC HCO3 (19-24) matthew/L POC Total CO2 (24-31) mmol/L POC Base Excess (-9-1.8) matthew/L ABG pH (Temp Correct) (7.35-7.45) ABG pCO2 (Temp Corrct (35-46) mmHg POC ABG pO2 at Pt Temp POC ABG O2 Sat (90-95) % Víctor Test O2 Delivery Device POC O2 Rate Minute Ventilation POC FiO2 % Tidal Volume PEEP POC Sodium (135-144) mmol/L Sodium (136-145) mmol/L POC Potassium (3.3-5.0) mmol/L Potassium (3.5-5.1) mmol/L Chloride (98-107) mmol/L Carbon Dioxide (21-32) mmol/L Anion Gap (3-11) BUN (7-18) mg/dl Creatinine (0.6-1.2) mg/dl Est Cr Clr Drug Dosing ml/min Est GFR ( Amer) Est GFR (Non-Af Amer) BUN/Creatinine Ratio (10-20) Glucose (70-99) mg/dl POC Glucose 172 H 273 H (70-99) mg/dl Calcium (8.5-10.1) mg/dl Phosphorus (2.5-4.9) mg/dl Magnesium (1.8-2.4) mg/dl Coding Level of Care Code Critical Care 1st 30-74 mins Diagnoses Pneumonia due to COVID-19 virus U07.1; J12.82 E. coli UTI N39.0; B96.20 MRSA pneumonia J15.212
[2021-01-07] MEDS ORDERED: FUROSEMIDE 40 MG in SYRINGE 0 ML IV ONE (12:15)
--- NOTE | 2021-01-07 16:08 | Ultrasound Report ---
BILATERAL LOWER EXTREMITY VENOUS DOPPLER HISTORY: Covid positive. assess for DVTs COMPARISON STUDY: None. FINDINGS: There is normal compressibility, flow, and augmentation within the left lower extremity justyna p venous system. There is thrombus seen within one of 2 right peroneal veins. The remaining right low er extremity deep veins are patent.. IMPRESSION: 1. Positive DVT identified within one of 2 right peroneal veins. 2. No DVT within the left lower extremity. ACT 112: Negative or not required by law. Electronically signed by: Abiodun Fernandez M.D. 01/07/2021 4:07 PM
--- NOTE | 2021-01-07 16:23 | Hospitalist Progress Note ---
Date of Service January 07, 2021 Assessment & Plan (1) Acute hypoxemic respiratory failure: Secondary to asthma exacerbation secondary to severe COVID-19 pneumonia, MRSA Pneumonia Possible Bacterial Pneumonia Initial CXR: Multifocal bilateral airspace opacities. This likely represents a viral pneumonia. Was on high flow O2 initially and failed to maintain saturation Appreciate ground transportation operator input and recommendation S/p mechanical intubation 12/30/20 Mech Vent Day # 8 , status post tracheotomy on 01/07/2021 Remains sedated as above 01/04/2021 and has not been requiring any more pressors Repeat chest x-ray did not show any improvement of the bilateral multilobar pneumonia Management of ventilator as per ground transportation operator Status post bronchoscopy today with clearing of bronchial secretion Not been able to extubate yet and the patient may need tracheostomy down the line Getting prone therapy to improve saturation Status post tracheotomy on 01/07/2021 We will try to wean off sedation from now on We will keep her on the pulp drier firer side-Lasix 40 mg IV x1 given Likely has superimposed bacterial pneumonia blood cultures: negative Sputum culture: MRSA Received ceftriaxone IV x2 days transition to Ceftaroline IV day #8 White counts keep elevated and she remains febrile COVID-19 pneumonia Continue Decadron Day [address] Duvall's recommendation, basing on NIH guideline Convalescent plasma given Respiratory status has not been improving As above UTI E coli Ceftriaxone IV x2 days transition to Ceftaroline IV day #8 Hypertension Monitor ARF secondary to illness Resolved Diarrhea secondary to illness Resolved hyperlipidemia on statin Rx DM2 insulin requiring, suboptimal control asked off recent outpatient hemoglobin A1c of 12.28 November 2020 Glycemic pharmacy consult DVT prophylaxis. Heparin subcu Lovenox SC for DVT Prophylaxis Full code Overall prognosis remains poor Discussed with the patient daughter in detail on 01/05/2021 Prognosis remains poor Admission and Anticipated Discharge Date Admission Date: December 28, 2020 Subjective 01/04/2021 The patient was seen and examined in telemetry unit in ICU bed She remains intubated and sedated Plan for extubation today failed 01/05/2021 The patient was seen and examined in telemetry unit as ICU patient She remains ventilated and sedated 01/06/2021 The patient was seen and examined in telemetry unit as ICU patient She remains intubated and sedated She is getting prone therapy now 01/07/2021 The patient was seen and examined in telemetry unit with ICU status She is a status post tracheotomy and remains stable Trying to wean off from sedation Review of Systems Review of Systems: Unobtainable due to endotracheal tube Physical Exam Physical Exam: Lying in bed, sedated and he is status post tracheotomy on Constitutional: well developed, well nourished, + ill appearing and + obese Eyes: Closed ENMT: external ear and nose normal, oropharynx normal Neck: Status post tracheotomy Respiratory: + respiratory distress Auscultation: + diminished lung sounds (Moderately decreased breath sounds on either sides) and + crackles (Bilateral crackles) Cardiovascular: Rate/Rhythm: regular rate and regular rhythm Heart Sounds: no murmur Extremities: + edema (1+ edema bilaterally) Gastrointestinal (Abdomen): Inspection/Auscultation: normal bowel sounds; abdomen not distended Percussion/Palpation: abdomen soft Neurologic: Remains sedated Lymphatic: no cervical or axillary lymphadenopathy Results & Data Results & Data ([facility]) Vital Signs (Past 12 Hours) Vital Signs Temp Pulse Resp BP Pulse Ox 01/07/21 15:41 86 01/07/21 15:32 86 27 H 92 01/07/21 15:25 86 29 H 91 01/07/21 12:35 38.1 C H 90 152/72 H 91 01/07/21 12:30 38.1 C H 94 H 91 01/07/21 12:05 38.1 C H 83 139/70 90 01/07/21 12:00 38.1 C H 87 90 01/07/21 11:45 87 29 H 94 01/07/21 11:35 37.9 C H 93 H 150/72 H 94 01/07/21 11:30 37.8 C H 87 94 01/07/21 11:05 37.8 C H 94 H 151/72 H 93 01/07/21 11:00 37.8 C H 104 H 93 01/07/21 10:35 37.7 C H 99 H 146/73 H 92 01/07/21 10:30 37.7 C H 105 H 91 01/07/21 10:05 37.5 C 89 151/68 H 91 01/07/21 10:00 37.5 C 97 H 90 01/07/21 09:35 37.3 C 71 132/70 93 01/07/21 09:34 37.3 C 69 141/79 H 94 01/07/21 09:30 66 92 01/07/21 09:29 87 153/64 H 90 01/07/21 09:24 79 155/76 H 90 01/07/21 09:19 79 144/90 H 93 01/07/21 09:13 62 145/69 H 96 01/07/21 09:09 62 111/54 L 95 01/07/21 09:03 56 L 101/50 L 93 01/07/21 09:00 58 L 93 01/07/21 08:58 59 L 98/52 L 93 01/07/21 08:53 58 L 91/51 L 93 01/07/21 08:48 61 99/51 L 92 01/07/21 08:43 58 L 95/49 L 91 01/07/21 08:38 59 L 91/49 L 90 01/07/21 08:33 56 L 91/51 L 90 01/07/21 08:30 59 L 90 01/07/21 08:28 58 L 93/50 L 90 01/07/21 08:23 60 92/46 L 89 L 01/07/21 08:18 56 L 90/46 L 89 L 01/07/21 08:13 55 L 96/49 L 92 01/07/21 08:08 57 L 96/46 L 90 01/07/21 08:03 54 L 94/48 L 89 L 01/07/21 08:00 55 L 18 91 01/07/21 07:58 55 L 93/47 L 91 01/07/21 07:53 53 L 95/49 L 98 01/07/21 07:48 54 L 114/56 L 99 01/07/21 07:44 80 148/85 H 100 01/07/21 07:38 63 116/59 L 99 01/07/21 07:34 50 L 121/65 99 01/07/21 07:30 86 100 01/07/21 07:28 92 H 151/68 H 100 01/07/21 07:23 70 125/62 100 01/07/21 07:18 68 128/66 100 01/07/21 07:13 141/79 H 100 01/07/21 07:12 68 146/68 H 100 01/07/21 07:04 60 125/61 91 01/07/21 07:00 38.0 C H 60 92 01/07/21 06:57 38.0 C H 60 123/57 L 91 01/07/21 06:45 38.0 C H 58 L 91 01/07/21 04:26 38.1 C H 63 115/55 L 89 L Laboratory Results Short CBC 01/07/21 Range/Units 03:33 WBC 20.25 H (4.8-10.8) K/uL Hgb 10.5 L (12.0-16.0) g/dL Hct 34.2 L (37-47) % Plt Count 376 (130-400) K/uL BMP 01/07/21 03:33 Sodium 141 Potassium 4.7 Chloride 108 H Carbon Dioxide 29 BUN 28 H Creatinine 0.63 Glucose 102 H Calcium 8.7 Medications Administered Current Inpatient Medications Acetaminophen (Acetaminophen Susp 325 Mg/10.15 Ml Udc) 650 mg PO Q4H PRN PRN Reason: Pain or Fever Stop: 01/29/21 14:34 Last Admin: 01/06/21 08:57 Dose: 650 mg Documented by: Allopurinol (Allopurinol 100 Mg Tab) 100 mg PO DAILY SAVANNAH Stop: 01/28/21 08:59 Last Admin: 01/07/21 09:20 Dose: 100 mg Documented by: Aspirin (Aspirin 81 Mg Chew) 81 mg PO DAILY SAVANNAH Stop: 01/30/21 08:59 Last Admin: 01/07/21 09:20 Dose: 81 mg Documented by: Atorvastatin Calcium (Atorvastatin 20 Mg Tab) 20 mg PO QAM SAVANNAH Stop: 01/28/21 08:59 Last Admin: 01/07/21 09:20 Dose: 20 mg Documented by: Dextrose (Dextrose 50% 50 Ml Syringe) 25 - 50 ml IV UD PRN; Protocol PRN Reason: Hypoglycemia Protocol Stop: 01/27/21 21:34 Enoxaparin Sodium (Enoxaparin Inj 40 Mg/0.4 Ml Syr) 40 mg SQ Q12H SAVANNAH Stop: 02/02/21 21:59 Last Admin: 01/07/21 09:06 Dose: 40 mg Documented by: Famotidine (Famotidine 20 Mg Tab) 20 mg PO QAM SAVANNAH Stop: 01/30/21 11:44 Last Admin: 01/07/21 09:20 Dose: 20 mg Documented by: Fentanyl Citrate (Fentanyl Bolus From Bag) 50 mcg IV Q60M PRN PRN Reason: Pain Stop: 01/13/21 08:48 Last Admin: 01/07/21 03:46 Dose: 50 mcg Documented by: Glucagon (Glucagon For Inj 1 Mg Vial) 1 mg SQ UD PRN; Protocol PRN Reason: Hypoglycemia Protocol Stop: 01/27/21 21:34 Glucose (Glucose 10 Tabs/Tube) 4 - 8 tabs PO UD PRN; Protocol PRN Reason: Hypoglycemia Protocol Stop: 01/27/21 21:34 Glucose (Glucose 40% Gel 15 Gm Tube) 15 - 30 gm PO UD PRN; Protocol PRN Reason: Hypoglycemia Protocol Stop: 01/27/21 21:34 Heparin Sodium (Beef Lung) (Heparin 10 Unit/Ml 5 Ml Flush) 5 ml FLUSH PRN PRN PRN Reason: Flush Stop: 02/03/21 22:32 Last Admin: 01/06/21 21:59 Dose: 5 ml Documented by: Dexamethasone 6 mg/ Syringe 1.5 mls @ 1 mls/min IV DAILY SAVANNAH Stop: 01/08/21 03:49 Last Admin: 01/07/21 09:05 Dose: 1 mls/min Documented by: Fentanyl Citrate (Fentanyl Drip) 1,250 mcg in 250 mls @ 0 mls/hr IV .Q0M SAVANNAH; Protocol Stop: 01/13/21 08:59 Last Titration: 01/07/21 15:14 Dose: Infused Documented by: Midazolam HCl (Versed) 125 mg in 250 mls @ 28 mls/hr IV .Q8H56M SAVANNAH; Protocol Stop: 01/29/21 09:14 Last Admin: 01/07/21 10:19 Dose: Not Given Documented by: Dexmedetomidine HCl 400 mcg/ (Sodium Chloride) 100 mls @ 0 mls/hr IV .Q0M SAVANNAH; Protocol Stop: 01/09/21 01:59 Last Titration: 01/07/21 15:14 Dose: Infused Documented by: Ceftaroline Fosamil 600 mg/ (Sodium Chloride) 270 mls @ 250 mls/hr IV Q8H SAVANNAH; Protocol Stop: 01/11/21 23:59 Last Infusion: 01/07/21 12:57 Dose: Infused Documented by: Norepinephrine Bitartrate (Levophed/D5w) 8 mg in 508 mls @ 14.573 mls/hr IV .Q24H [facility]; Protocol Stop: 02/06/21 02:14 Last Titration: 01/07/21 15:14 Dose: Infused Documented by: Insulin Aspart (Insulin Aspart 100 Units/Ml 3 Ml Pen) 0 units SC Q4 [facility]; Protocol Stop: 01/28/21 11:59 Last Admin: 01/07/21 16:05 Dose: Not Given Documented by: Insulin Glargine (Insulin Glargine Solostar 100 Units/Ml 3 Ml Pen) 45 units SQ DAILY@0900 [facility]; Protocol Stop: 02/03/21 08:59 Last Admin: 01/07/21 09:41 Dose: 45 units Documented by: Lactulose (Lactulose Syrup 20 Gm/30 Ml Udc) 20 gm PO DAILY [facility] Stop: 01/31/21 13:29 Last Admin: 01/07/21 09:20 Dose: 20 gm Documented by: Levothyroxine Sodium (Levothyroxine Sodium 25 Mcg Tablet) 25 mcg PO DAILYBB [facility] Stop: 01/28/21 06:29 Last Admin: 01/07/21 06:13 Dose: 25 mcg Documented by: Midazolam HCl (Midazolam Bolus From Bag) 2 mg IV Q60M PRN PRN Reason: Sedation Stop: 01/29/21 09:05 Last Admin: 01/07/21 03:46 Dose: 2 mg Documented by: Miscellaneous (Carbohydrates For Hypoglycemia ) 15 - 30 gm PO UD PRN PRN Reason: Hypoglycemia Protocol Stop: 01/27/21 21:34 Miscellaneous Information (Pharmacy Glycemic Mgmt Consult) 1 ea N/A UD PRN PRN Reason: Consult Stop: 01/28/21 08:57 Multivitamins/Minerals (Multi Vit W/Minerals Liquid 15 Ml Udp) 15 ml NG QAM [facility] Stop: 02/04/21 08:59 Last Admin: 01/07/21 09:20 Dose: 15 ml Documented by: Nutritional Formula (Peptamen Intense Vhp 1.0 Flip 1,000 Ml Bag) 1,000 ml OG UD [facility]; Protocol Stop: 01/30/21 10:29 Last Admin: 01/04/21 10:59 Dose: 1,000 ml Documented by: Sterile Water (Tube Feeding Water Flush) 30 ml OG Q4H [facility] Stop: 02/04/21 11:59 Last Admin: 01/07/21 11:52 Dose: 30 ml Documented by:
[2021-01-07] MEDS ORDERED: ENOXAPARIN 1 MG/KG SQ SCH (16:30)
[2021-01-07] MEDS ORDERED: LORazepam 0.5 MG TAB PO PRN (18:10)
[2021-01-07] MEDS: DEXTROSE 50% 50 ML SYRINGE IV PRN (19:44)
[2021-01-07] MEDS: ENOXAPARIN 80 MG/0.8 ML SYR SQ SCH (19:49)
[2021-01-08] MEDS: TUBE FEEDING WATER FLUSH OG SCH ×6 (00:20→20:55)
[2021-01-08] MEDS: INSULIN ASPART 100 UNITS/ML 3 ML PEN SC SCH ×4 (00:20→20:50)
[2021-01-08] MEDS: DEXTROSE 50% 50 ML SYRINGE IV PRN (00:20)
[2021-01-08] MEDS: CEFTAROLINE FOSAMIL ACETATE 600 MG in SODIUM CHLORIDE 0.9% 250 ML IV SCH ×3 (02:35→20:49)
[2021-01-08 05:45] LABS: Basophils # (auto) 0.01 K/uL (0-0.2); Basophils % (auto) 0.1 %; Eosinophils # (auto) 0.05 K/uL (0-0.5); Eosinophils % (auto) 0.4 %; Hematocrit (blood only) 33.1 % (37-47); Hemoglobin 10.5 g/dL (12.0-16.0); Immature Granulocytes # (auto) 0.05 K/uL (0.00-0.02); Immature Granulocytes % (auto) 0.4 %; Lymphocytes # (auto) 1.31 K/uL (1.2-3.4); Mean Corpuscular Hemoglobin 25.9 pg (25-34); Mean Corpuscular Hgb Conc 31.7 g/dL (32-36); Mean Corpuscular Volume 81.5 fL (80-100); Mean Platelet Volume 10.5 fL (7.4-10.4); Monocytes # (auto) 0.65 K/uL (0.11-0.59); Monocytes % (auto) 5.5 %; Neutrophils % (auto) 82.6 %; Platelet Count 301 K/uL (130-400); RDW Coefficient of Variation 13.7 % (11.5-14.5); RDW Standard Deviation 41.2 fL (36.4-46.3); Red Blood Count 4.06 M/uL (4.2-5.4); White Blood Count 11.87 K/uL (4.8-10.8)
[2021-01-08 06:12] LABS: BUN Creatinine Ratio 43.3 (10-20); Calcium 8.4 mg/dl (8.5-10.1); Creatinine Clr Calc Pharmacy 125.8 ml/min; Est GFR (African American) 124.6; Est GFR (Non-African American) 107.5; Magnesium 1.9 mg/dl (1.8-2.4); Phosphorus 3.9 mg/dl (2.5-4.9); Potassium 3.6 mmol/L (3.5-5.1)
[2021-01-08] MEDS: LEVOTHYROXINE SODIUM 25 MCG TABLET PO SCH (06:20)
--- NOTE | 2021-01-08 07:38 | Critical Care Progress Note ---
Date of Service January 08, 2021 Assessment & Plan (1) Acute hypoxemic respiratory failure: Reason Critically Ill: 55-year-old female with PMHx significant for poorly controlled diabetes and asthma, admitted for COVID-19 pneumonia and transferred to the ICU on 12/30 for acute hypoxic respiratory failure 2/2 to this. Tracheostomy performed on 01/07. ICU Day 10. Neuro - [facility] ICU: POSITIVE - continue close monitoring in ICU Cardiac - no pressors for 24 hours, maintaining pressures/MAP>65 - BLE venous duplex 01/07 showing RLE DVT - continue therapeutic Lovenox 80mg SQ Q12H - follow I/Os and clinical volume status (currently appears euvolemic) - continue home Aspirin/Lipitor Respiratory - Acute hypoxic respiratory failure 2/2 COVID-19 pneumonia, tracheostomy placed on 01/07 - CXR showing stable presence of multifocal airspace opacities - s/p Dexamethasone x10 days on 01/07 - continue Ceftaroline as mentioned below GI - NPO, failed both liquids and solids on swallow test - continue tube feeds - advance to goal - patient having BMs daily - changed Lactulose to PRN - strict I/Os RENAL/LYTES - Renal function normal - K 3.6 - repleted; no other electrolyte derangements - Replace lytes as needed - No concerns at this time, continue dawkins ENDO - h/o diabetes, glycemic control per ICU protocol - continue Synthroid 25mcg PO daily for hypothyroidism HEME - - Stable H&H, continue to monitor CBC daily ID - COVID-19 pneumonia as well as MRSA sputum and E.coli UTI - febrile to 38.6C and WBC improved 20 --> 12 (s/p steroids) - s/p Dexamethasone x10 days on 01/07, as above - continue Ceftaroline 600mgIV Q8H x10 days (today is day 7) - monitor fever curve LINES/IV ACCESS - - R radial art line, L IJ CVC, PIVs, NG tube, tracheostomy tube, dawkins intact. DVT PROPHYLAXIS - - continue therapeutic Lovenox 80mg SQ Q12H, as above GI ppx: Pepcid 20mg PO QAM CODE STATUS: full code Thank you for allowing us to be part of this patient's care. Please refer to Dr. Sellers's documentation for any further recommendations. (2) Pneumonia due to COVID-19 virus: Admission and Anticipated Discharge Date Admission Date: December 28, 2020 Supervising Physician Co-Signing Physician Notes I have personally spent 40 minutes of critical care time in the direct management of this patient. This is a life/limb threatening event. This incl udes time spent evaluating patient, direct bedside care, chart review, placing orders, interpretation of diagnostic studies, discussion with consultants, patient, and/or family members regarding treatment decisions, as well as other required patient management activities. This time is exclusive of all separately billable procedures, and teaching time and separate from and in addition to any other critical care service time. Subjective One episode of NBNB emesis overnight; patient with sensitive gag reflex after tracheostomy and NG tube placement yesterday. Patient denies current chest pain or abdominal pain. History/ROS limited as patient is somnolent/fatigued. Review of Systems Review of Systems: Limited as stated above; pertinent positives and negatives mentioned in HPI. Physical Exam Physical Exam: General: lying supine in bed, tracheostomy tube in place, NAD HEENT: Atraumatic Pulm: Decreased air entry bilaterally Cardiac: RRR, -mrg. Radial pulses intact and symmetrical. No LE edema. Abdominal: soft, mildly distended, hypoactive BSx4 Skin: warm, dry Results & Data Results & Data ([facility]) Vital Signs (Past 12 Hours) Vital Signs Temp Pulse Resp BP Pulse Ox 01/08/21 06:36 37.8 C H 76 149/88 H 95 01/08/21 06:06 37.9 C H 85 165/94 H 94 01/08/21 06:00 37.9 C H 93 H 35 H 94 01/08/21 05:36 37.9 C H 83 158/99 H 94 01/08/21 05:06 37.9 C H 89 167/100 H 93 01/08/21 05:00 37.9 C H 87 93 01/08/21 04:35 38.0 C H 88 150/91 H 94 01/08/21 04:05 38.2 C H 92 H 153/86 H 94 01/08/21 04:00 38.2 C H 81 28 H 100 01/08/21 03:36 38.0 C H 83 162/106 H 95 01/08/21 03:06 38.0 C H 96 H 157/82 H 89 L 01/08/21 03:01 90 33 H 95 01/08/21 03:00 38.0 C H 94 H 91 01/08/21 02:35 38.0 C H 81 157/84 H 92 01/08/21 02:05 38.0 C H 92 H 155/90 H 92 01/08/21 02:00 38.0 C H 83 92 01/08/21 01:35 38.0 C H 90 163/87 H 93 01/08/21 01:06 38.0 C H 98 H 166/97 H 93 01/08/21 01:00 38.0 C H 96 H 93 01/08/21 00:35 37.9 C H 87 152/93 H 95 01/08/21 00:05 37.9 C H 85 161/80 H 90 01/08/21 00:01 91 H 26 H 01/08/21 00:00 38.0 C H 96 H 88 L 01/07/21 23:38 90 31 H 92 01/07/21 23:35 38.1 C H 85 159/89 H 89 L 01/07/21 23:05 38.2 C H 94 H 153/100 H 90 01/07/21 23:00 38.1 C H 89 89 L 01/07/21 22:35 38.2 C H 90 144/97 H 92 01/07/21 22:05 38.2 C H 88 164/84 H 92 01/07/21 22:03 38.2 C H 85 156/98 H 92 01/07/21 22:00 38.2 C H 91 H 91 01/07/21 21:35 38.3 C H 100 H 156/98 H 89 L 01/07/21 21:05 38.4 C H 95 H 149/86 H 91 01/07/21 21:00 38.4 C H 108 H 94 01/07/21 20:35 38.4 C H 103 H 161/87 H 91 01/07/21 20:05 38.3 C H 91 H 149/78 H 93 01/07/21 20:00 38.3 C H 84 93 Resident Activity Tracking Resident Involvement: Resident Care Provided Care Provided: [facility] Medicine
[2021-01-08] MEDS: ATORVASTATIN 20 MG TAB PO SCH (08:24)
[2021-01-08] MEDS: allopurinoL 100 MG TAB PO SCH (08:24)
[2021-01-08] MEDS: FAMOTIDINE 20 MG TAB PO SCH (08:24)
[2021-01-08] MEDS: ENOXAPARIN 80 MG/0.8 ML SYR SQ SCH ×2 (08:24→20:50)
[2021-01-08] MEDS: MULTI VIT W/MINERALS LIQUID 15 ML UDP NG SCH (08:24)
[2021-01-08] MEDS: LACTULOSE SYRUP 20 GM/30 ML UDC PO SCH (08:24)
[2021-01-08] MEDS: ASPIRIN 81 MG CHEW PO SCH (08:25)
--- NOTE | 2021-01-08 08:54 | XRay Report ---
XR chest 1V portable CLINICAL HISTORY: COVID PNA COMPARISON STUDY: 01/07/2021 FINDINGS: There is an enteric tube positioned within the stomach. There is a tracheostomy tube presen t. There is a left internal jugular central venous catheter. The cardiac and mediastinal contours rem ain stable. There are multifocal airspace opacities consistent with a multifocal pneumonia.[ IMPRESSION: 1. Persistent multifocal airspace opacities consistent with a multifocal pneumonia 2. Satisfactory positioning of the lines and tubes. ACT 112: Negative or not required by law. Electronically signed by: Ruel Barnett M.D. 01/08/2021 8:53 AM
--- NOTE | 2021-01-08 08:57 | XRay Report ---
KUB HISTORY: NGT placement COMPARISON: None. FINDINGS: The bowel gas pattern is unremarkable. There are no dilated loops of small bowel to suggest an obstruction. No renal calculi. No ureteral calculi. No pneumoperitoneum or pneumatosis. Nasogast tahir tube terminates in the stomach. Bilateral airspace opacities are partially visualized on this hoa dy. Central venous catheter terminates in the expected location of the distal SVC. IMPRESSION: Nasogastric tube terminates in the stomach. ACT 112: Negative or not required by law. Electronically signed by: Abiodun Fernandez M.D. 01/08/2021 8:56 AM
--- NOTE | 2021-01-08 11:06 | Hospitalist Progress Note ---
Date of Service January 08, 2021 Assessment & Plan (1) Acute hypoxemic respiratory failure: Secondary to asthma exacerbation secondary to severe COVID-19 pneumonia, MRSA Pneumonia Possible Bacterial Pneumonia Initial CXR: Multifocal bilateral airspace opacities. This likely represents a viral pneumonia. Was on high flow O2 initially and failed to maintain saturation Appreciate mosaic tiler input and recommendation S/p mechanical intubation 12/30/20 Mech Vent Day # 8 , status post tracheotomy on 01/07/2021 Remains sedated as above 01/04/2021 and has not been requiring any more pressors Repeat chest x-ray did not show any improvement of the bilateral multilobar pneumonia Management of ventilator as per mosaic tiler Status post bronchoscopy today with clearing of bronchial secretion Not been able to extubate yet and the patient may need tracheostomy down the line Getting prone therapy to improve saturation Status post tracheotomy on 01/07/2021 We will try to wean off sedation from now on We will keep her on the curtain drier side-Lasix 40 mg IV x1 given Clinically better today with decreasing short of breath but is still requiring 50% FiO2 to maintain saturation DVT in 2 right peroneal veins Started on Lovenox subcu twice daily she has been put on Lovenox subcu twice daily Likely has superimposed bacterial pneumonia blood cultures: negative Sputum culture: MRSA Received ceftriaxone IV x2 days transition to Ceftaroline IV day #8 White counts keep elevated and she remains febrile White count has been improving but he still has high temperature 37.8 COVID-19 pneumonia Continue Decadron Day [address] Duvall's recommendation, basing on NIH guideline Convalescent plasma given Respiratory status has not been improving As above UTI E coli Ceftriaxone IV x2 days transition to Ceftaroline IV day #9 Hypertension Monitor ARF secondary to illness Resolved Diarrhea secondary to illness Resolved hyperlipidemia on statin Rx DM2 insulin requiring, suboptimal control asked off recent outpatient hemoglobin A1c of 12.28 November 2020 Glycemic pharmacy consult DVT prophylaxis. Heparin subcu Lovenox SC for DVT Prophylaxis Full code Overall prognosis remains poor Discussed with the patient daughter in detail on 01/05/2021 Prognosis remains poor Conference call with her daughter and the patient has been arranged for this afternoon Admission and Anticipated Discharge Date Admission Date: December 28, 2020 Subjective 01/04/2021 The patient was seen and examined in telemetry unit in ICU bed She remains intubated and sedated Plan for extubation today failed 01/05/2021 The patient was seen and examined in telemetry unit as ICU patient She remains ventilated and sedated 01/06/2021 The patient was seen and examined in telemetry unit as ICU patient She remains intubated and sedated She is getting prone therapy now 01/07/2021 The patient was seen and examined in telemetry unit with ICU status She is a status post tracheotomy and remains stable Trying to wean off from sedation 01/08/2021 The patient was seen and examined in telemetry unit with ICU status She has been off pressors and sedation Has been feeling much better Review of Systems Review of Systems: As per HPI, all 10 systems reviewed, all other ROS negative Respiratory: + cough and + dyspnea Physical Exam Physical Exam: Lying in bed with moderate shortness of breath Constitutional: well developed, well nourished, + ill appearing and + obese Eyes: PERRL, conjunctivae normal, anicteric sclerae ENMT: external ear and nose normal, oropharynx normal Neck: trachea midline, no thyromegaly Respiratory: + respiratory distress Auscultation: + diminished lung sounds (Moderately decreased breath sounds on either sides) and + crackles (Bilateral crackles) Cardiovascular: Rate/Rhythm: regular rate and regular rhythm Heart Sounds: no murmur Extremities: + edema (1+ edema bilaterally) Gastrointestinal (Abdomen): Inspection/Auscultation: normal bowel sounds; abdomen not distended Percussion/Palpation: abdomen soft Musculoskeletal: No acute arthritis in any joint Neurologic: Alert and awake. Moving all the limbs equally. Generally weak and lethargic Lymphatic: no cervical or axillary lymphadenopathy Results & Data Results & Data ([facility]) Vital Signs (Past 12 Hours) Vital Signs Temp Pulse Resp BP Pulse Ox 01/08/21 06:36 37.8 C H 76 149/88 H 95 01/08/21 06:06 37.9 C H 85 165/94 H 94 01/08/21 06:00 37.9 C H 93 H 35 H 94 01/08/21 05:36 37.9 C H 83 158/99 H 94 01/08/21 05:06 37.9 C H 89 167/100 H 93 01/08/21 05:00 37.9 C H 87 93 01/08/21 04:35 38.0 C H 88 150/91 H 94 01/08/21 04:05 38.2 C H 92 H 153/86 H 94 01/08/21 04:00 38.2 C H 81 28 H 100 01/08/21 03:36 38.0 C H 83 162/106 H 95 01/08/21 03:06 38.0 C H 96 H 157/82 H 89 L 01/08/21 03:01 90 33 H 95 01/08/21 03:00 38.0 C H 94 H 91 01/08/21 02:35 38.0 C H 81 157/84 H 92 01/08/21 02:05 38.0 C H 92 H 155/90 H 92 01/08/21 02:00 38.0 C H 83 92 01/08/21 01:35 38.0 C H 90 163/87 H 93 01/08/21 01:06 38.0 C H 98 H 166/97 H 93 01/08/21 01:00 38.0 C H 96 H 93 01/08/21 00:35 37.9 C H 87 152/93 H 95 01/08/21 00:05 37.9 C H 85 161/80 H 90 01/08/21 00:01 91 H 26 H 01/08/21 00:00 38.0 C H 96 H 88 L 01/07/21 23:38 90 31 H 92 01/07/21 23:35 38.1 C H 85 159/89 H 89 L 01/07/21 23:05 38.2 C H 94 H 153/100 H 90 01/07/21 23:00 38.1 C H 89 89 L Laboratory Results Short CBC 01/08/21 Range/Units 05:32 WBC 11.87 H (4.8-10.8) K/uL Hgb 10.5 L (12.0-16.0) g/dL Hct 33.1 L (37-47) % Plt Count 301 (130-400) K/uL BMP 01/08/21 05:32 Sodium 144 Potassium 3.6 D Chloride 108 H Carbon Dioxide 30 BUN 22 H Creatinine 0.51 L Glucose 112 H Calcium 8.4 L Medications Administered Current Inpatient Medications Acetaminophen (Acetaminophen Susp 325 Mg/10.15 Ml Udc) 650 mg PO Q4H PRN PRN Reason: Pain or Fever Stop: 01/29/21 14:34 Last Admin: 01/06/21 08:57 Dose: 650 mg Documented by: Allopurinol (Allopurinol 100 Mg Tab) 100 mg PO DAILY SAVANNAH Stop: 01/28/21 08:59 Last Admin: 01/08/21 08:24 Dose: 100 mg Documented by: Aspirin (Aspirin 81 Mg Chew) 81 mg PO DAILY SAVANNAH Stop: 01/30/21 08:59 Last Admin: 01/08/21 08:25 Dose: 81 mg Documented by: Atorvastatin Calcium (Atorvastatin 20 Mg Tab) 20 mg PO QAM [facility] Stop: 01/28/21 08:59 Last Admin: 01/08/21 08:24 Dose: 20 mg Documented by: Dextrose (Dextrose 50% 50 Ml Syringe) 25 - 50 ml IV UD PRN; Protocol PRN Reason: Hypoglycemia Protocol Stop: 01/27/21 21:34 Last Admin: 01/08/21 00:20 Dose: 50 ml Documented by: Enoxaparin Sodium (Enoxaparin 80 Mg/0.8 Ml Syr) 80 mg SQ Q12H [facility]NA[facility] Stop: 02/06/21 20:59 Last Admin: 01/08/21 08:24 Dose: 80 mg Documented by: Famotidine (Famotidine 20 Mg Tab) 20 mg PO QAM [facility]NA[facility] Stop: 01/30/21 11:44 Last Admin: 01/08/21 08:24 Dose: 20 mg Documented by: Glucagon (Glucagon For Inj 1 Mg Vial) 1 mg SQ UD PRN; Protocol PRN Reason: Hypoglycemia Protocol Stop: 01/27/21 21:34 Glucose (Glucose 10 Tabs/Tube) 4 - 8 tabs PO UD PRN; Protocol PRN Reason: Hypoglycemia Protocol Stop: 01/27/21 21:34 Glucose (Glucose 40% Gel 15 Gm Tube) 15 - 30 gm PO UD PRN; Protocol PRN Reason: Hypoglycemia Protocol Stop: 01/27/21 21:34 Heparin Sodium (Beef Lung) (Heparin 10 Unit/Ml 5 Ml Flush) 5 ml FLUSH PRN PRN PRN Reason: Flush Stop: 02/03/21 22:32 Last Admin: 01/06/21 21:59 Dose: 5 ml Documented by: Ceftaroline Fosamil 600 mg/ (Sodium Chloride) 270 mls @ 250 mls/hr IV Q8H [facility]NA[facility]; Protocol Stop: 01/11/21 23:59 Last Admin: 01/08/21 10:20 Dose: 270 mls/hr Documented by: Insulin Aspart (Insulin Aspart 100 Units/Ml 3 Ml Pen) 0 units SC Q6 [facility]; Protocol Stop: 02/07/21 11:59 Insulin Glargine (Insulin Glargine Solostar 100 Units/Ml 3 Ml Pen) 45 units SQ DAILY@0900 [facility]; Protocol Stop: 02/03/21 08:59 Last Admin: 01/07/21 09:41 Dose: 45 units Documented by: Lactulose (Lactulose Syrup 20 Gm/30 Ml Udc) 20 gm PO DAILY [facility] Stop: 01/31/21 13:29 Last Admin: 01/08/21 08:24 Dose: 20 gm Documented by: Levothyroxine Sodium (Levothyroxine Sodium 25 Mcg Tablet) 25 mcg PO DAILYBB [facility] Stop: 01/28/21 06:29 Last Admin: 01/08/21 06:20 Dose: 25 mcg Documented by: Miscellaneous (Carbohydrates For Hypoglycemia ) 15 - 30 gm PO UD PRN PRN Reason: Hypoglycemia Protocol Stop: 01/27/21 21:34 Miscellaneous Information (Pharmacy Glycemic Mgmt Consult) 1 ea N/A UD PRN PRN Reason: Consult Stop: 01/28/21 08:57 Multivitamins/Minerals (Multi Vit W/Minerals Liquid 15 Ml Udp) 15 ml NG QAM [facility] Stop: 02/04/21 08:59 Last Admin: 01/08/21 08:24 Dose: 15 ml Documented by: Nutritional Formula (Peptamen Intense Vhp 1.0 Flip 1,000 Ml Bag) 1,000 ml OG UD [facility]; Protocol Stop: 01/30/21 10:29 Last Admin: 01/04/21 10:59 Dose: 1,000 ml Documented by: Sterile Water (Tube Feeding Water Flush) 30 ml OG Q4H [facility] Stop: 02/04/21 11:59 Last Admin: 01/08/21 08:25 Dose: 30 ml Documented by:
--- NOTE | 2021-01-08 11:48 | Billing Data ---
Date of Service January 08, 2021 Coding Level of Care Code Critical Care 1st - mins
[2021-01-08] MEDS ORDERED: INSULIN ASPART 100 UNITS/ML 3 ML PEN SC SCH (12:00)
--- NOTE | 2021-01-08 12:09 | Pharmacy Report ---
Pharmacy Glycemic Short Note 2 - Date of Service January 08, 2021 - Glycemic Short BSG Results (Last 24 hours): 01/07/21 01/07/21 01/07/21 15:50 19:40 19:58 Glucose POC Glucose 80 70 129 H 01/08/21 01/08/21 01/08/21 00:16 00:34 03:37 Glucose POC Glucose 74 198 H 104 H 01/08/21 05:32 Glucose 112 H POC Glucose OUTPATIENT ANTIDIABETIC REGIMEN: * Levemir 24 units daily * Metformin * Empagliflozin * Dulaglutide * HbA1c 12.1 % 12/30/20 ASSESSMENT: 01/08 * BSGs range between 70-153 mg/dL yesterday on 92 units of total insulin * Dexamethasone 10 days completed yesterday, NPH DC'd, Pepatmen on hold, s/p tracheostomy yesterday * Held Lantus this morning, restarting this afternoon at reduced dose for NPO status * Remains on Teflaro for MRSA Pnx 01/06 * BSGs range between 146-228 mg/dL yesterday on 161 units of total insulin * Dexamethasone Day #10, currently last dose ordered tomorrow @ 0900 AM * Did not increase NPH today, prandial BSG elevated at lunch, tightened carb ratio to 2.5 mg/dl * Suspect significant changes needed to regiman with discontinuation of steroids/ ?extubation (TF would be held), continue to monitor. 01/05: * BSGs range between 120-282 mg/dL yesterday on 161 units of total insulin. * Blood sugars continue to fluctuate. I did increase NPH dose this morning. * Only two days of steroid therapy left on current regimen. Anticipate BSGs improving and insulin needs decreasing significantly once steroids completed * Patients continues on tube feeds. 01/03: * BSGs remained in the 200s most of yesterday with ~111 units of total insulin * Will increase NPH today to help with mid day steroid effects and tighten novolog. * Steroids and tube feeds continue. 01/01 * BSGs trended down nicely with insulin infusion * Increased NPH to ~0.4 unit/kg dosing to be given with IV dexamethasone * Increased Lantus to 40 units SC today (full weight-based stress of 3 dosing) * BSGs have remained reasonably well-controlled while on insulin infusion at 1 unit/hr for past 2 hours - will transition insulin infusion today * Tube feeds likely to be advanced today 12/31 * BSGs have been elevated over past 24 hours (196-254 mg/dL) * Peptamen intense VHP continuous tube feeds initiated today at 10 mL/hr * Will add q4h Novolog to cover tube feeds * Continues on dexamethasone 6 mg IV daily - will cover with NPH * BSG at lunchtime of 232 mg/dL - will start insulin infusion 12/30 * BSGs well controlled yesterday, however patient required intubation this AM and is now sedated, ventilated and requiring norepi for pressor support * AM doses of ordered NPH and Lantus were not given. Nor has BSG been checked since intubation * Will give basal insulin dose (Lantus alone) w/ 1600 BSG check - dose will be based upon last 24 hr requirement * Novolog will be dosed Q 4 hrs with CF and CR doses based upon "severe" stress level * Would recommend initiating IV insulin drip per protocol, goal range 120- 180mg/dL if BSG > 220 x 1 or greater than 180 x 2 12/29 * 55 yo F with T2DM admitted 12/28 for acute resp failure 2nd COVID, asthma. Currently NPO, on BiPAP, and receiving dexamethasone * BSG's persistently >180 mg/dL x4 thus far, likely 2nd insufficient basal insulin and correction factor. Will tighten PLAN FOR INPATIENT GLYCEMIC CONTROL: * Hold outpatient oral diabetes medications * Basal insulin * Lantus 15 units SQ daily * DC NPH * Bolus insulin * NovoLog per scale q 6 hrs * Goal Range: Low 110 mg/dL - High 140 mg/dL * Correction Factor: 10 mg/dL/unit * Nutritional / Prandial insulin per carb ratio of 1 unit per 2.5 grams CHO consumed * Instructions added to cover tube feeds (Peptamen Intense VHP)
[2021-01-08] MEDS: INSULIN GLARGINE SOLOSTAR 100 UNITS/ML 3 ML PEN SQ SCH (12:38)
[2021-01-08] MEDS ORDERED: LACTULOSE SYRUP 20 GM/30 ML UDC PO PRN (12:41)
[2021-01-08] MEDS: PEPTAMEN INTENSE VHP 1.0 CAL 1,000 ML BAG OG SCH (13:05)
[2021-01-08] MEDS: ACETAMINOPHEN SUSP 325 MG/10.15 ML UDC PO PRN (13:05)
[2021-01-08] MEDS ORDERED: POTASSIUM CHLORIDE PWD 20 MEQ PACK PO STA (13:48)
[2021-01-08] MEDS ORDERED: INSULIN GLARGINE SOLOSTAR 100 UNITS/ML 3 ML PEN SQ ONE (21:15)
[2021-01-09] MEDS: TUBE FEEDING WATER FLUSH OG SCH ×6 (00:31→22:05)
[2021-01-09] MEDS: INSULIN ASPART 100 UNITS/ML 3 ML PEN SC SCH ×7 (00:31→23:45)
[2021-01-09] MEDS: CEFTAROLINE FOSAMIL ACETATE 600 MG in SODIUM CHLORIDE 0.9% 250 ML IV SCH ×3 (04:32→21:10)
[2021-01-09] MEDS ORDERED: MIDAZOLAM HCL 5 MG/ML VIAL IV STA ×2 (05:57→06:28)
[2021-01-09 05:58] LABS: Basophils # (auto) 0.03 K/uL (0-0.2); Basophils % (auto) 0.2 %; Eosinophils # (auto) 0.18 K/uL (0-0.5); Hematocrit (blood only) 35.4 % (37-47); Immature Granulocytes # (auto) 0.08 K/uL (0.00-0.02); Immature Granulocytes % (auto) 0.4 %; Lymphocytes # (auto) 1.38 K/uL (1.2-3.4); Lymphocytes % (auto) 7.6 %; Mean Corpuscular Hemoglobin 25.8 pg (25-34); Mean Corpuscular Hgb Conc 31.1 g/dL (32-36); Mean Corpuscular Volume 82.9 fL (80-100); Monocytes # (auto) 2.41 K/uL (0.11-0.59); Monocytes % (auto) 13.2 %; Neutrophils # (auto) 14.18 K/uL (1.4-6.5); Neutrophils % (auto) 77.6 %; Platelet Count 413 K/uL (130-400); RDW Coefficient of Variation 13.8 % (11.5-14.5); RDW Standard Deviation 41.6 fL (36.4-46.3); Red Blood Count 4.27 M/uL (4.2-5.4); White Blood Count 18.26 K/uL (4.8-10.8)
[2021-01-09] MEDS ORDERED: MIDAZOLAM HCL 1 MG/ML 2ML VIAL ONE (05:58)
[2021-01-09 06:04] LABS: iSTAT Allen Test Pass; iSTAT Art Bld Gas pCO2 Correct 42 mmHg (35-46); iSTAT Art Bld Gas pH Corrected 7.435 (7.35-7.45); iSTAT Arterial Blood Gas HCO3 28 meg/L (19-24); iSTAT Arterial Blood Gas pCO2 43 mmHg (35-46); iSTAT Arterial Blood Gas pH 7.43 (7.35-7.45); iSTAT Arterial Blood Gas pO2 78 mmHg (80-95); iSTAT Arterial Blood Gas pO2 C 77; iSTAT Carbon Dioxide 30 mmol/L (24-31); iSTAT FiO2 100 %; iSTAT Hematocrit 34 % (37-47); iSTAT Hemoglobin 11.6 g/dl (12.0-16.0); iSTAT Potassium 3.7 mmol/L (3.3-5.0); iSTAT Site R Radial; iSTAT Sodium 145 mmol/L (135-144)
[2021-01-09 06:28] LABS: BUN Creatinine Ratio 37.3 (10-20); Calcium 8.7 mg/dl (8.5-10.1); Est GFR (African American) 120.1; Est GFR (Non-African American) 103.6; Magnesium 1.9 mg/dl (1.8-2.4); Potassium 3.9 mmol/L (3.5-5.1)
[2021-01-09] MEDS ORDERED: fentaNYL citrate 100 MCG/2 ML VIAL IV ONE (06:28)
[2021-01-09] MEDS ORDERED: STAT IV Infusion **Titration per Protocol STA (06:28)
[2021-01-09 06:33] LABS: Phosphorus 4.5 mg/dl (2.5-4.9)
[2021-01-09] MEDS: DEXMEDETOMIDINE HCL 200 MCG in SODIUM CHLORIDE 0.9% 48 ML IV SCH ×2 (07:55→17:15)
[2021-01-09] MEDS: ACETAMINOPHEN SUSP 325 MG/10.15 ML UDC PO PRN (07:55)
[2021-01-09] MEDS: LEVOTHYROXINE SODIUM 25 MCG TABLET PO SCH (07:56)
[2021-01-09] MEDS: ATORVASTATIN 20 MG TAB PO SCH (08:03)
[2021-01-09] MEDS: ASPIRIN 81 MG CHEW PO SCH (08:03)
[2021-01-09] MEDS: FAMOTIDINE 20 MG TAB PO SCH (08:03)
[2021-01-09] MEDS: allopurinoL 100 MG TAB PO SCH (08:03)
[2021-01-09] MEDS: MULTI VIT W/MINERALS LIQUID 15 ML UDP NG SCH (08:04)
[2021-01-09] MEDS: ENOXAPARIN 80 MG/0.8 ML SYR SQ SCH ×2 (08:04→22:05)
[2021-01-09] MEDS: INSULIN GLARGINE SOLOSTAR 100 UNITS/ML 3 ML PEN SQ SCH (08:15)
--- NOTE | 2021-01-09 09:05 | XRay Report ---
XR KUB/Abdomen 1 view CLINICAL HISTORY: Abdominal distention COMPARISON STUDY: 01/08/2021 FINDINGS: An enteric tube is visualized within the stomach. There is no pathologic bowel dilatation. IMPRESSION: Nonobstructive bowel gas pattern. ACT 112: Negative or not required by law. Electronically signed by: Ruel Barnett M.D. 01/09/2021 9:04 AM
--- NOTE | 2021-01-09 09:18 | XRay Report ---
XR chest 1V portable HISTORY: Covid pneumonia. Follow-up. COMPARISON: Chest 01/08/2021. FINDINGS: No change in the multifocal bilateral airspace opacities consistent with a pneumonia. Lines and tubes remain in good position. There is elevation of the right hemidiaphragm. No pneumothorax. N o pleural effusions. IMPRESSION: 1. No change in the multifocal pneumonia. 2. Satisfactory support line placement. ACT 112: Negative or not required by law. Electronically signed by: Abiodun Fernandez M.D. 01/09/2021 9:17 AM
--- NOTE | 2021-01-09 11:15 | Critical Care Progress Note ---
Date of Service January 09, 2021 Assessment & Plan (1) Pneumonia due to COVID-19 virus: (2) Acute hypoxemic respiratory failure: Reason Critically Ill: 55-year-old female with PMHx significant for poorly controlled diabetes and asthma, admitted for COVID-19 pneumonia and transferred to the ICU on 12/30 for acute hypoxic respiratory failure 2/2 to this. Tracheostomy performed on 01/07. ICU Day 10. Neuro - [facility] ICU: Negative -Continue with Precedex and wean it off as possible Cardiac - BLE venous duplex 01/07 showing RLE DVT - continue therapeutic Lovenox 80mg SQ Q12H - continue home Aspirin/Lipitor Respiratory - Acute hypoxic respiratory failure 2/ COVID-19 pneumonia, tracheostomy placed on 01/07 - CXR showing stable presence of multifocal airspace opacities - s/p Dexamethasone x10 days on 01/07 - continue Ceftaroline as mentioned below GI -Failed swallow eval - continue tube feeds - advance to goal - patient having BMs daily - changed Lactulose to PRN - strict I/Os RENAL/LYTES -Monitor BUNs/creatinine -Replace lites as needed - No concerns at this time ENDO - h/o diabetes, glycemic control per ICU protocol - continue Synthroid 25mcg PO daily for hypothyroidism HEME - - Stable H&H ID - COVID-19 pneumonia as well as MRSA sputum and E.coli UTI - s/p Dexamethasone x10 days on 01/07 - continue Ceftaroline 600mgIV Q8H x14 days --Prophylaxis VTE: Therapeutic Lovenox GI: Pepcid Lines: Left IJ, positive trach 01/07/2021, positive Restrepo Diet: Tube feeds Plan: In/out: -418, urine output 1503, patient is +2.6 L since coming to the hospital Patient had copious secretion early in the morning I think this reason she went into distress. I will continue with the Precedex for the time being it 0.2. Gradually try to taper it off I was able to put the patient on pressure support 07/28 and she was getting good tidal volumes. Continue with pressure support during the day. Vent support during the night Continue with aggressive suctioning from the trach Continue with ceftezole and for total of 14 days for MRSA pneumonia T-max 38.6 Has high normal sodium. Free water 200 mL via the NGT for total of 4 doses every 6. DC Restrepo and remove left IJ once the peripherals are not I have personally spent 38 minutes of critical care time in the direct management of this patient. This is a life/limb threatening event. This includes time spent evaluating patient, direct bedside care, chart review, placing orders, interpretation of diagnostic studies, discussion with consultants, patient, and family members, as well as other required patient management activities. This time is exclusive of all separately billable procedures, and teaching time and separate from and in addition to any other critical care service time. Please note the above document was generated using voice recognition software. It may contain grammatical, syntax or spelling errors. Admission and Anticipated Discharge Date Admission Date: December 28, 2020 Subjective Patient seen and examined at bedside. No acute distress. Patient was on trach collar since yesterday afternoon and also overnight. Early in the morning patient was found to be in distress and was put on ventilator Patient on on ventilator support at the time of examination. Patient denies any chest pain, no headache, no nausea, no vomiting. Is following commands. Moving all the extremities. Review of Systems Review of Systems: All systems reviewed & are unremarkable except as noted in Subjective Physical Exam Physical Exam: Constitutional: No acute distress HEENT: EOMI, PERRLA, positive trach Respiratory system: Decreased air entry bilaterally, positive crackles bilaterally, no wheeze, no rhonchi CVS: S1-S2 positive, no murmurs or gallops Abdomen: Soft, nontender, nondistended, positive bowel sounds x4 Extremities: +2 pulses bilaterally radialis/ dorsalis pedis, no cyanosis, no edema Neuro: Awake alert oriented Psych: Normal mood and affect G/U: Positive Restrepo Skin: no rashes, warm and dry Lymphatic: no cervical or axillary lymphadenopathy Results & Data Results & Data ([facility]) Vital Signs (Past 12 Hours) Vital Signs Temp Pulse Resp BP Pulse Ox 01/09/21 10:00 90 28 H 111/69 96 01/09/21 09:30 106 H 95 01/09/21 09:00 93 H 95 01/09/21 08:36 102 H 24 125/80 95 01/09/21 08:06 102 H 126/85 96 01/09/21 08:00 37.8 C H 102 H 95 01/09/21 07:36 118 H 121/79 95 01/09/21 07:28 112 H 33 H 99 01/09/21 07:06 114 H 121/72 99 01/09/21 07:00 112 H 99 01/09/21 06:20 129 H 41 H 95 01/09/21 06:00 122 H 39 H 96 01/09/21 05:49 134 H 32 H 146/93 H 96 01/09/21 05:36 118 H 36 H 161/99 H 01/09/21 05:30 96 01/09/21 05:07 133 H 35 H 209/129 H 91 01/09/21 05:00 128 H 39 H 98 01/09/21 04:36 103 H 31 H 158/89 H 90 01/09/21 04:30 107 H 55 H 90 01/09/21 04:07 107 H 40 H 150/86 H 89 L 01/09/21 04:00 112 H 38 H 89 L 01/09/21 03:36 103 H 43 H 169/90 H 91 01/09/21 03:30 112 H 28 H 91 01/09/21 03:06 114 H 44 H 163/87 H 89 L 01/09/21 03:00 104 H 42 H 88 L 01/09/21 02:36 115 H 30 H 156/89 H 88 L 01/09/21 02:30 117 H 34 H 88 L 01/09/21 02:07 120 H 35 H 156/93 H 87 L 01/09/21 02:00 94 H 41 H 90 01/09/21 01:36 112 H 41 H 167/80 H 89 L 01/09/21 01:30 115 H 45 H 87 L 01/09/21 01:07 122 H 35 H 142/96 H 89 L 01/09/21 01:00 36.8 C 108 H 45 H 87 L 01/09/21 00:36 112 H 23 152/85 H 89 L 01/09/21 00:07 108 H 44 H 155/78 H 86 L 01/09/21 00:00 94 H 42 H 85 L 01/08/21 23:36 111 H 32 H 169/85 H 88 L 01/09/21 05:35 01/09/21 05:35 Coding Level of Care Code Critical Care 1st 30-74 mins Diagnoses Pneumonia due to COVID-19 virus U07.1; J12.82 Acute hypoxemic respiratory failure J96.01 Time Spent (min) 38
--- NOTE | 2021-01-09 11:35 | Hospitalist Progress Note ---
Date of Service January 09, 2021 Assessment & Plan (1) Acute hypoxemic respiratory failure: Secondary to asthma exacerbation secondary to severe COVID-19 pneumonia, MRSA Pneumonia Possible Bacterial Pneumonia Initial CXR: Multifocal bilateral airspace opacities. This likely represents a viral pneumonia. Was on high flow O2 initially and failed to maintain saturation Appreciate acupressure therapist input and recommendation S/p mechanical intubation 12/30/20 [facility] Vent Day # 8 , status post tracheotomy on 01/07/2021 Remains sedated as above 01/04/2021 and has not been requiring any more pressors Repeat chest x-ray did not show any improvement of the bilateral multilobar pneumonia Management of ventilator as per acupressure therapist Status post bronchoscopy today with clearing of bronchial secretion Not been able to extubate yet and the patient may need tracheostomy down the line Getting prone therapy to improve saturation Status post tracheotomy on 01/07/2021 She was noted to be in distress this morning likely due to excessive secretion She has been back on a small dose of intravenous Precedex and remains sedated during my examination DVT in 2 right peroneal veins Started on Lovenox subcu twice daily she has been put on Lovenox subcu twice daily Likely has superimposed bacterial pneumonia blood cultures: negative Sputum culture: MRSA Received ceftriaxone IV x2 days transition to Ceftaroline IV day #8=9 White counts keep elevated and she remains febrile White count has been improving but he still has high temperature 37.8 Her white count remains elevated and still febrile Sputum has been sent for reculture and in the meantime we will continue intravenous Ceftraroline for a total of 14 days COVID-19 pneumonia Continue Decadron Day [address] Duvall's recommendation, basing on NIH guideline Convalescent plasma given Respiratory status has not been improving As above-finished the course of antiviral, convalescent plasma and steroid UTI E coli Ceftriaxone IV x2 days transition to Ceftaroline IV day #10 Hypertension Monitor ARF secondary to illness Resolved Diarrhea secondary to illness Resolved hyperlipidemia on statin Rx DM2 insulin requiring, suboptimal control asked off recent outpatient hemoglobin A1c of 12.28 November 2020 Glycemic pharmacy consult DVT prophylaxis. Heparin subcu Lovenox SC for DVT Prophylaxis Full code Overall prognosis remains poor Discussed with the patient daughter in detail on 01/05/2021 Prognosis remains poor Conference call with her daughter and the patient has been arranged for this afternoon We will discuss with her daughter today Admission and Anticipated Discharge Date Admission Date: December 28, 2020 Subjective 01/04/2021 The patient was seen and examined in telemetry unit in ICU bed She remains intubated and sedated Plan for extubation today failed 01/05/2021 The patient was seen and examined in telemetry unit as ICU patient She remains ventilated and sedated 01/06/2021 The patient was seen and examined in telemetry unit as ICU patient She remains intubated and sedated She is getting prone therapy now 01/07/2021 The patient was seen and examined in telemetry unit with ICU status She is a status post tracheotomy and remains stable Trying to wean off from sedation 01/08/2021 The patient was seen and examined in telemetry unit with ICU status She has been off pressors and sedation Has been feeling much better 01/09/2021 The patient was seen and examined in telemetry unit with ICU status She was noted to be very distressed early this morning and requiring intravenous Precedex Remains stable and sedated during my examination Review of Systems Review of Systems: As per HPI, all 10 systems reviewed, all other ROS negative Respiratory: + dyspnea; no cough Physical Exam Physical Exam: Remains sedated with status post tracheostomy on mechanical vent Constitutional: well developed, well nourished, + ill appearing and + obese Eyes: PERRL, conjunctivae normal, anicteric sclerae ENMT: external ear and nose normal, oropharynx normal Neck: trachea midline, no thyromegaly Respiratory: + respiratory distress Auscultation: + diminished lung sounds (Moderately decreased breath sounds on either sides) and + crackles (Bilateral crackles) Cardiovascular: Rate/Rhythm: regular rate and regular rhythm Heart Sounds: no murmur Extremities: + edema (1+ edema bilaterally) Gastrointestinal (Abdomen): Inspection/Auscultation: normal bowel sounds; abdomen not distended Percussion/Palpation: abdomen soft Neurologic: Remains sedated Lymphatic: no cervical or axillary lymphadenopathy Results & Data Results & Data ([facility]) Vital Signs (Past 12 Hours) Vital Signs Temp Pulse Resp BP Pulse Ox 01/09/21 10:00 90 28 H 111/69 96 01/09/21 09:30 106 H 95 01/09/21 09:00 93 H 95 01/09/21 08:36 102 H 24 125/80 95 01/09/21 08:06 102 H 126/85 96 01/09/21 08:00 37.8 C H 102 H 95 01/09/21 07:36 118 H 121/79 95 01/09/21 07:28 112 H 33 H 99 01/09/21 07:06 114 H 121/72 99 01/09/21 07:00 112 H 99 01/09/21 06:20 129 H 41 H 95 01/09/21 06:00 122 H 39 H 96 01/09/21 05:49 134 H 32 H 146/93 H 96 01/09/21 05:36 118 H 36 H 161/99 H 01/09/21 05:30 96 01/09/21 05:07 133 H 35 H 209/129 H 91 01/09/21 05:00 128 H 39 H 98 01/09/21 04:36 103 H 31 H 158/89 H 90 01/09/21 04:30 107 H 55 H 90 01/09/21 04:07 107 H 40 H 150/86 H 89 L 01/09/21 04:00 112 H 38 H 89 L 01/09/21 03:36 103 H 43 H 169/90 H 91 01/09/21 03:30 112 H 28 H 91 01/09/21 03:06 114 H 44 H 163/87 H 89 L 01/09/21 03:00 104 H 42 H 88 L 01/09/21 02:36 115 H 30 H 156/89 H 88 L 01/09/21 02:30 117 H 34 H 88 L 01/09/21 02:07 120 H 35 H 156/93 H 87 L 01/09/21 02:00 94 H 41 H 90 01/09/21 01:36 112 H 41 H 167/80 H 89 L 01/09/21 01:30 115 H 45 H 87 L 01/09/21 01:07 122 H 35 H 142/96 H 89 L 01/09/21 01:00 36.8 C 108 H 45 H 87 L 01/09/21 00:36 112 H 23 152/85 H 89 L 01/09/21 00:07 108 H 44 H 155/78 H 86 L 01/09/21 00:00 94 H 42 H 85 L 01/08/21 23:36 111 H 32 H 169/85 H 88 L Laboratory Results Short CBC 01/09/21 Range/Units 05:35 WBC 18.26 H (4.8-10.8) K/uL Hgb 11.0 L (12.0-16.0) g/dL Hct 35.4 L (37-47) % Plt Count 413 H (130-400) K/uL [facility] 01/09/21 05:35 Sodium 145 Potassium 3.9 Chloride 110 H Carbon Dioxide 29 BUN 21 H Creatinine 0.57 L Glucose 169 H Calcium 8.7 Medications Administered Current Inpatient Medications Acetaminophen (Acetaminophen Susp 325 Mg/10.15 Ml Udc) 650 mg PO Q4H PRN PRN Reason: Pain or Fever Stop: 01/29/21 14:34 Last Admin: 01/09/21 07:55 Dose: 650 mg Documented by: Allopurinol (Allopurinol 100 Mg Tab) 100 mg PO DAILY [facility] Stop: 01/28/21 08:59 Last Admin: 01/09/21 08:03 Dose: 100 mg Documented by: Aspirin (Aspirin 81 Mg Chew) 81 mg PO DAILY [facility] Stop: 01/30/21 08:59 Last Admin: 01/09/21 08:03 Dose: 81 mg Documented by: Atorvastatin Calcium (Atorvastatin 20 Mg Tab) 20 mg PO QAM [facility] Stop: 01/28/21 08:59 Last Admin: 01/09/21 08:03 Dose: 20 mg Documented by: Dextrose (Dextrose 50% 50 Ml Syringe) 25 - 50 ml IV UD PRN; Protocol PRN Reason: Hypoglycemia Protocol Stop: 01/27/21 21:34 Last Admin: 01/08/21 00:20 Dose: 50 ml Documented by: Enoxaparin Sodium (Enoxaparin 80 Mg/0.8 Ml Syr) 80 mg SQ Q12H [facility] Stop: 02/06/21 20:59 Last Admin: 01/09/21 08:04 Dose: 80 mg Documented by: Famotidine (Famotidine 20 Mg Tab) 20 mg PO QAM [facility] Stop: 01/30/21 11:44 Last Admin: 01/09/21 08:03 Dose: 20 mg Documented by: Glucagon (Glucagon For Inj 1 Mg Vial) 1 mg SQ UD PRN; Protocol PRN Reason: Hypoglycemia Protocol Stop: 01/27/21 21:34 Glucose (Glucose 10 Tabs/Tube) 4 - 8 tabs PO UD PRN; Protocol PRN Reason: Hypoglycemia Protocol Stop: 01/27/21 21:34 Glucose (Glucose 40% Gel 15 Gm Tube) 15 - 30 gm PO UD PRN; Protocol PRN Reason: Hypoglycemia Protocol Stop: 01/27/21 21:34 Heparin Sodium (Beef Lung) (Heparin 10 Unit/Ml 5 Ml Flush) 5 ml FLUSH PRN PRN PRN Reason: Flush Stop: 02/03/21 22:32 Last Admin: 01/09/21 07:56 Dose: 5 ml Documented by: Ceftaroline Fosamil 600 mg/ (Sodium Chloride) 270 mls @ 250 mls/hr IV Q8H [facility]; Protocol Stop: 01/15/21 10:00 Last Infusion: 01/09/21 05:32 Dose: Infused Documented by: Dexmedetomidine HCl 200 mcg/ (Sodium Chloride) 50 mls @ 3.77 mls/hr IV .[id number] [facility]; Protocol Stop: 01/13/21 06:29 Last Admin: 01/09/21 07:55 Dose: 0.2 mcg/kg/hr, 3.8 mls/hr Documented by: Insulin Aspart (Insulin Aspart 100 Units/Ml 3 Ml Pen) 0 units SC Q4 [facility]; Protocol Stop: 02/07/21 15:59 Last Admin: 01/09/21 08:13 Dose: 6 units Documented by: Insulin Glargine (Insulin Glargine Solostar 100 Units/Ml 3 Ml Pen) 20 units SC QAM [facility] Stop: 02/08/21 08:59 Lactulose (Lactulose Syrup 20 Gm/30 Ml Udc) 20 gm PO DAILY PRN PRN Reason: constipation Stop: 01/31/21 13:29 Levothyroxine Sodium (Levothyroxine Sodium 25 Mcg Tablet) 25 mcg PO DAILYBB [facility] Stop: 01/28/21 06:29 Last Admin: 01/09/21 07:56 Dose: 25 mcg Documented by: Miscellaneous (Carbohydrates For Hypoglycemia ) 15 - 30 gm PO UD PRN PRN Reason: Hypoglycemia Protocol Stop: 01/27/21 21:34 Miscellaneous Information (Pharmacy Glycemic Mgmt Consult) 1 ea N/A UD PRN PRN Reason: Consult Stop: 01/28/21 08:57 Multivitamins/Minerals (Multi Vit W/Minerals Liquid 15 Ml Udp) 15 ml NG QAM [facility] Stop: 02/04/21 08:59 Last Admin: 01/09/21 08:04 Dose: 15 ml Documented by: Nutritional Formula (Peptamen Intense Vhp 1.0 Flip 1,000 Ml Bag) 1,000 ml OG UD [facility]; Protocol Stop: 01/30/21 10:29 Last Admin: 01/08/21 13:05 Dose: 1,000 ml Documented by: Sterile Water (Tube Feeding Water Flush) 30 ml OG Q4H [facility] Stop: 02/04/21 11:59 Last Admin: 01/09/21 07:56 Dose: 30 ml Documented by: Sterile Water (Tube Feeding Water Flush) 200 ml OG Q6H [facility] Stop: 01/10/21 04:01
[2021-01-09] MEDS: INSULIN GLARGINE SOLOSTAR 100 UNITS/ML 3 ML PEN SC SCH (13:20)
[2021-01-09] MEDS: PEPTAMEN INTENSE VHP 1.0 CAL 1,000 ML BAG OG SCH (17:05)
[2021-01-10] MEDS: INSULIN ASPART 100 UNITS/ML 3 ML PEN SC SCH ×6 (03:34→23:15)
[2021-01-10] MEDS: CEFTAROLINE FOSAMIL ACETATE 600 MG in SODIUM CHLORIDE 0.9% 250 ML IV SCH ×3 (03:35→21:08)
[2021-01-10] MEDS: TUBE FEEDING WATER FLUSH OG SCH ×6 (03:35→21:05)
[2021-01-10] MEDS: DEXMEDETOMIDINE HCL 200 MCG in SODIUM CHLORIDE 0.9% 48 ML IV SCH ×3 (04:45→15:57)
[2021-01-10 05:24] LABS: iSTAT Allen Test Pass; iSTAT Arterial Blood Gas HCO3 27 meg/L (19-24); iSTAT Arterial Blood Gas pCO2 38 mmHg (35-46); iSTAT Arterial Blood Gas pH 7.46 (7.35-7.45); iSTAT Arterial Blood Gas pO2 57 mmHg (80-95); iSTAT Carbon Dioxide 28 mmol/L (24-31); iSTAT FiO2 35 %; iSTAT Site R Brachial
[2021-01-10 05:36] LABS: Basophils # (auto) 0.02 K/uL (0-0.2); Basophils % (auto) 0.2 %; Eosinophils # (auto) 0.28 K/uL (0-0.5); Eosinophils % (auto) 2.4 %; Hematocrit (blood only) 29.8 % (37-47); Hemoglobin 9.3 g/dL (12.0-16.0); Immature Granulocytes # (auto) 0.02 K/uL (0.00-0.02); Immature Granulocytes % (auto) 0.2 %; Lymphocytes # (auto) 1.05 K/uL (1.2-3.4); Lymphocytes % (auto) 8.9 %; Mean Corpuscular Hemoglobin 25.8 pg (25-34); Mean Corpuscular Hgb Conc 31.2 g/dL (32-36); Mean Corpuscular Volume 82.8 fL (80-100); Mean Platelet Volume 10.4 fL (7.4-10.4); Monocytes # (auto) 1.11 K/uL (0.11-0.59); Monocytes % (auto) 9.4 %; Neutrophils # (auto) 9.38 K/uL (1.4-6.5); Neutrophils % (auto) 78.9 %; Platelet Count 297 K/uL (130-400); RDW Standard Deviation 42.5 fL (36.4-46.3); White Blood Count 11.86 K/uL (4.8-10.8)
[2021-01-10 06:06] LABS: BUN Creatinine Ratio 48.8 (10-20); Calcium 8.5 mg/dl (8.5-10.1); Est GFR (African American) 113.9; Est GFR (Non-African American) 98.3; Magnesium 2.1 mg/dl (1.8-2.4); Potassium 3.7 mmol/L (3.5-5.1)
[2021-01-10 06:08] LABS: Phosphorus 3.5 mg/dl (2.5-4.9)
[2021-01-10] MEDS: ACETAMINOPHEN SUSP 325 MG/10.15 ML UDC PO PRN (07:40)
[2021-01-10] MEDS: LEVOTHYROXINE SODIUM 25 MCG TABLET PO SCH (07:40)
[2021-01-10] MEDS: MULTI VIT W/MINERALS LIQUID 15 ML UDP NG SCH (08:00)
[2021-01-10] MEDS: ATORVASTATIN 20 MG TAB PO SCH (08:00)
[2021-01-10] MEDS: FAMOTIDINE 20 MG TAB PO SCH (08:00)
[2021-01-10] MEDS: ENOXAPARIN 80 MG/0.8 ML SYR SQ SCH ×2 (08:00→21:06)
[2021-01-10] MEDS: allopurinoL 100 MG TAB PO SCH (08:00)
[2021-01-10] MEDS: ASPIRIN 81 MG CHEW PO SCH (08:00)
[2021-01-10] MEDS: INSULIN GLARGINE SOLOSTAR 100 UNITS/ML 3 ML PEN SC SCH (08:40)
--- NOTE | 2021-01-10 09:01 | XRay Report ---
XR chest 1V portable CLINICAL HISTORY: f/u COMPARISON STUDY: Chest radiograph January 09, 2021. FINDINGS: Tracheostomy tube is in place. Tip of nasogastric tube is within the body of the stomach. L vini volumes are diminished with elevation of the right hemidiaphragm. This is unchanged. There is mil d motion of the cardiac silhouette. No pneumothorax or pleural effusion is noted. Bilateral airspace opacities, greater on the right, are again noted. IMPRESSION: 1. Satisfactory positioning of lines and tubes. 2. No significant change in bilateral airspace opacities, greater within the right lung. The findings favor multifocal pneumonia. Pulmonary edema or ARDS could appear similar. ACT 112: Negative or not required by law. Electronically signed by: Doron Gong M.D. 01/10/2021 9:00 AM
--- NOTE | 2021-01-10 11:38 | Critical Care Progress Note ---
Date of Service January 10, 2021 Assessment & Plan (1) Pneumonia due to COVID-19 virus: (2) Acute hypoxemic respiratory failure: Reason Critically Ill: 55-year-old female with PMHx significant for poorly controlled diabetes and asthma, admitted for COVID-19 pneumonia and transferred to the ICU on 12/30 for acute hypoxic respiratory failure 2/2 to this. Tracheostomy performed on 01/07. ICU Day 10. Neuro - [facility] ICU: Negative -Try to wean off Precedex Cardiac - BLE venous duplex 01/07 showing RLE DVT - continue therapeutic Lovenox 80mg SQ Q12H - continue home Aspirin/Lipitor Respiratory - Acute hypoxic respiratory failure 2/2 COVID-19 pneumonia, tracheostomy placed on 01/07 - CXR showing stable presence of multifocal airspace opacities - s/p Dexamethasone x10 days on 01/07 - continue Ceftaroline as mentioned below GI - Failed swallow eval - continue tube feeds - Lactulose to PRN - strict I/Os RENAL/LYTES -Monitor BUNs/creatinine -Replace lites as needed - No concerns at this time ENDO - h/o diabetes, glycemic control per ICU protocol - continue Synthroid 25mcg PO daily for hypothyroidism HEME - - Stable H&H ID - COVID-19 pneumonia as well as MRSA sputum and E.coli UTI - s/p Dexamethasone x10 days on 01/07 - continue Ceftaroline 600mgIV Q8H x14 days --Prophylaxis VTE: Therapeutic Lovenox GI: Pepcid Lines: Left IJ, positive trach 01/07/2021 Diet: Tube feeds Plan: In/out: +1.8 L, urine output , the output is not accurate as the patient's Restrepo has been removed Try trach collar today. Put the patient back on pressure support if she is in distress and at night Patient is hypernatremic and hyperchloremic. Will make some adjustment to the tube feeds Give to 50 mL free water every 6 hours for total of 6 doses while the OGT. We will try to get another swallow eval if patient is able to tolerate trach collar. PT OT Continue with aggressive suctioning. I think patient will benefit from an LTAC placement. I have personally spent 35 minutes of critical care time in the direct management of this patient. This is a life/limb threatening event. This includes time spent evaluating patient, direct bedside care, chart review, placing orders, interpretation of diagnostic studies, discussion with consultants, patient, and family members, as well as other required patient management activities. This time is exclusive of all separately billable procedures, and teaching time and separate from and in addition to any other critical care service time. Please note the above document was generated using voice recognition software. It may contain grammatical, syntax or spelling errors. Admission and Anticipated Discharge Date Admission Date: December 28, 2020 Subjective Patient seen and examined at bedside. No acute distress, no adverse events overnight. Patient was on pressure support and was tolerating it well all night. At the time of examination patient denies any headache, no chest pain, no belly pain, no nausea or vomiting. Patient denies any pain around the trach site. Patient was on Precedex 0.5 the time of examination Review of Systems Review of Systems: All systems reviewed & are unremarkable except as noted in Subjective Physical Exam Physical Exam: Constitutional: No acute distress HEENT: EOMI, PERRLA, positive trach Respiratory system: Decreased air entry bilaterally, positive crackles bilaterally, no wheeze, no rhonchi CVS: S1-S2 positive, no murmurs or gallops Abdomen: Soft, nontender, nondistended, positive bowel sounds x4 Extremities: +2 pulses bilaterally radialis/ dorsalis pedis, no cyanosis, no edema Neuro: Awake alert oriented Psych: Normal mood and affect G/U: No Restrepo Skin: no rashes, warm and dry Lymphatic: no cervical or axillary lymphadenopathy Results & Data Results & Data ([facility]) Vital Signs (Past 12 Hours) Vital Signs Temp Pulse Resp BP Pulse Ox 01/10/21 10:14 68 25 H 104/53 L 96 01/10/21 09:09 60 24 95 01/10/21 08:09 68 103/63 93 01/10/21 08:00 37.7 C H 64 26 H 92 01/10/21 07:35 63 27 H 95 01/10/21 07:09 84 106/56 L 95 01/10/21 06:00 37.7 C H 76 93 01/10/21 05:38 82 128/69 95 01/10/21 05:00 81 95 01/10/21 04:54 78 34 H 94 01/10/21 04:09 69 120/63 98 01/10/21 04:00 37.8 C H 71 98 01/10/21 03:09 67 98/55 L 94 01/10/21 03:00 67 93 01/10/21 02:09 64 83/50 L 95 01/10/21 02:00 67 96 01/10/21 01:09 72 92/57 L 96 01/10/21 01:00 66 96 01/10/21 00:10 90 106/75 89 L 01/10/21 00:00 70 94 01/10/21 05:27 01/10/21 05:27 Coding Level of Care Code Critical Care 1st 30-74 mins Diagnoses Pneumonia due to COVID-19 virus U07.1; J12.82 Acute hypoxemic respiratory failure J96.01 Time Spent (min) 35
[2021-01-10] MEDS: PEPTAMEN INTENSE VHP 1.0 CAL 1,000 ML BAG OG SCH (12:11)
--- NOTE | 2021-01-10 14:18 | Pharmacy Report ---
Pharmacy Glycemic Short Note 2 - Date of Service January 10, 2021 - Glycemic Short BSG Results (Last 24 hours): 01/07/21 01/09/21 01/09/21 03:57 17:01 21:08 Glucose POC Glucose 150 H 176 H POC Glucose (other) 106 H 01/09/21 01/10/21 01/10/21 23:43 03:33 05:27 Glucose 134 H POC Glucose 157 H 141 H POC Glucose (other) 01/10/21 01/10/21 07:44 12:14 Glucose POC Glucose 155 H 140 H POC Glucose (other) OUTPATIENT ANTIDIABETIC REGIMEN: * Levemir 24 units daily * Metformin * Empagliflozin * Dulaglutide * HbA1c 12.1 % 12/30/20 ASSESSMENT: 01/10 * BSGs ranged from 114-201 mg/dL yesterday, 63 units of total insulin * Steroids have been discontinued, TF continue * BSGs have been stable today 141-155-140 mg/dL- will continue current dosing 01/08 * BSGs range between 70-153 mg/dL yesterday on 92 units of total insulin * Dexamethasone 10 days completed yesterday, NPH DC'd, Pepatmen on hold, s/p tracheostomy yesterday * Held Lantus this morning, restarting this afternoon at reduced dose for NPO status * Remains on Teflaro for MRSA Pnx 01/06 * BSGs range between 146-228 mg/dL yesterday on 161 units of total insulin * Dexamethasone Day #10, currently last dose ordered tomorrow @ 0900 AM * Did not increase NPH today, prandial BSG elevated at lunch, tightened carb ratio to 2.5 mg/dl * Suspect significant changes needed to regiman with discontinuation of steroids/ ?extubation (TF would be held), continue to monitor. 01/05: * BSGs range between 120-282 mg/dL yesterday on 161 units of total insulin. * Blood sugars continue to fluctuate. I did increase NPH dose this morning. * Only two days of steroid therapy left on current regimen. Anticipate BSGs improving and insulin needs decreasing significantly once steroids completed * Patients continues on tube feeds. 01/03: * BSGs remained in the 200s most of yesterday with ~111 units of total insulin * Will increase NPH today to help with mid day steroid effects and tighten novolog. * Steroids and tube feeds continue. 01/01 * BSGs trended down nicely with insulin infusion * Increased NPH to ~0.4 unit/kg dosing to be given with IV dexamethasone * Increased Lantus to 40 units SC today (full weight-based stress of 3 dosing) * BSGs have remained reasonably well-controlled while on insulin infusion at 1 unit/hr for past 2 hours - will transition insulin infusion today * Tube feeds likely to be advanced today 12/31 * BSGs have been elevated over past 24 hours (196-254 mg/dL) * Peptamen intense VHP continuous tube feeds initiated today at 10 mL/hr * Will add q4h Novolog to cover tube feeds * Continues on dexamethasone 6 mg IV daily - will cover with NPH * BSG at lunchtime of 232 mg/dL - will start insulin infusion 12/30 * BSGs well controlled yesterday, however patient required intubation this AM and is now sedated, ventilated and requiring norepi for pressor support * AM doses of ordered NPH and Lantus were not given. Nor has BSG been checked since intubation * Will give basal insulin dose (Lantus alone) w/ 1600 BSG check - dose will be based upon last 24 hr requirement * Novolog will be dosed Q 4 hrs with CF and CR doses based upon "severe" stress level * Would recommend initiating IV insulin drip per protocol, goal range 120- 180mg/dL if BSG > 220 x 1 or greater than 180 x 2 12/29 * 55 yo F with T2DM admitted 12/28 for acute resp failure 2nd COVID, asthma. Currently NPO, on BiPAP, and receiving dexamethasone * BSG's persistently >180 mg/dL x4 thus far, likely 2nd insufficient basal insulin and correction factor. Will tighten PLAN FOR INPATIENT GLYCEMIC CONTROL: * Hold outpatient oral diabetes medications * Basal insulin * Lantus 20 units SQ daily * Bolus insulin * NovoLog per scale q 6 hrs * Goal Range: Low 110 mg/dL - High 140 mg/dL * Correction Factor: 10 mg/dL/unit * Nutritional / Prandial insulin per carb ratio of 1 unit per 2.5 grams CHO consumed * Instructions added to cover tube feeds (Peptamen Intense VHP)
--- NOTE | 2021-01-10 16:09 | Hospitalist Progress Note ---
Date of Service January 10, 2021 Assessment & Plan (1) Acute hypoxemic respiratory failure: Secondary to asthma exacerbation secondary to severe COVID-19 pneumonia, MRSA Pneumonia Possible Bacterial Pneumonia Initial CXR: Multifocal bilateral airspace opacities. This likely represents a viral pneumonia. Was on high flow O2 initially and failed to maintain saturation Appreciate forest nursery supervisor input and recommendation S/p mechanical intubation 12/30/20 [facility] Vent Day # 8 , status post tracheotomy on 01/07/2021 Remains sedated as above 01/04/2021 and has not been requiring any more pressors Repeat chest x-ray did not show any improvement of the bilateral multilobar pneumonia Management of ventilator as per forest nursery supervisor Status post bronchoscopy today with clearing of bronchial secretion Not been able to extubate yet and the patient may need tracheostomy down the line Getting prone therapy to improve saturation Status post tracheotomy on 01/07/2021 She was noted to be in distress this morning likely due to excessive secretion She has been back on a small dose of intravenous Precedex and remains sedated during my examination Gradual improvement-consideration is given for possible LTAC placement Daughter is updated by the nursing staff DVT in 2 right peroneal veins Started on Lovenox subcu twice daily she has been put on Lovenox subcu twice daily Likely has superimposed bacterial pneumonia blood cultures: negative Sputum culture: MRSA Received ceftriaxone IV x2 days transition to Ceftaroline IV day #8=9 White counts keep elevated and she remains febrile White count has been improving but he still has high temperature 37.8 Her white count remains elevated and still febrile Sputum has been sent for reculture and in the meantime we will continue intravenous Ceftraroline for a total of 14 days No more fever and white count has been improving COVID-19 pneumonia Continue Decadron Day [address] Duvall's recommendation, basing on NIH guideline Convalescent plasma given Respiratory status has not been improving As above-finished the course of antiviral, convalescent plasma and steroid UTI E coli Ceftriaxone IV x2 days transition to Ceftaroline IV day #11 Hypertension Monitor ARF secondary to illness Resolved Diarrhea secondary to illness Resolved hyperlipidemia on statin Rx DM2 insulin requiring, suboptimal control asked off recent outpatient hemoglobin A1c of 12.28 November 2020 Glycemic pharmacy consult DVT prophylaxis. Heparin subcu Lovenox SC for DVT Prophylaxis Full code Overall prognosis remains poor Discussed with the patient daughter in detail on 01/05/2021 Prognosis remains poor Conference call with her daughter and the patient has been arranged for this afternoon Her daughter is updated by the nursing staff Admission and Anticipated Discharge Date Admission Date: December 28, 2020 Subjective 01/04/2021 The patient was seen and examined in telemetry unit in ICU bed She remains intubated and sedated Plan for extubation today failed 01/05/2021 The patient was seen and examined in telemetry unit as ICU patient She remains ventilated and sedated 01/06/2021 The patient was seen and examined in telemetry unit as ICU patient She remains intubated and sedated She is getting prone therapy now 01/07/2021 The patient was seen and examined in telemetry unit with ICU status She is a status post tracheotomy and remains stable Trying to wean off from sedation 01/08/2021 The patient was seen and examined in telemetry unit with ICU status She has been off pressors and sedation Has been feeling much better 01/09/2021 The patient was seen and examined in telemetry unit with ICU status She was noted to be very distressed early this morning and requiring intravenous Precedex Remains stable and sedated during my examination 01/10/2021 The patient was seen and examined in telemetry unit with ICU status She is listed status post tracheostomy and has been improving gradually Responding to commands but not talking Remains generally weak and lethargic Review of Systems Review of Systems: As per HPI, all 10 systems reviewed, all other ROS negative Respiratory: + dyspnea; no cough Physical Exam Physical Exam: Lying in bed with minimal distress Constitutional: well developed, well nourished, + ill appearing and + obese Eyes: PERRL, conjunctivae normal, anicteric sclerae ENMT: external ear and nose normal, oropharynx normal Neck: trachea midline, no thyromegaly Respiratory: + respiratory distress Auscultation: + diminished lung sounds (Moderately decreased breath sounds on either sides) and + crackles (Bilateral crackles) Cardiovascular: Rate/Rhythm: regular rate and regular rhythm Heart Sounds: no murmur Extremities: + edema (1+ edema bilaterally) Gastrointestinal (Abdomen): Inspection/Auscultation: normal bowel sounds; abdomen not distended Percussion/Palpation: abdomen soft Neurologic: Alert and awake, responding to vocal commands without verbal communication Lymphatic: no cervical or axillary lymphadenopathy Results & Data Results & Data ([facility]) Vital Signs (Past 12 Hours) Vital Signs Temp Pulse Resp BP Pulse Ox 01/10/21 13:09 80 24 140/82 92 01/10/21 12:10 89 138/87 92 01/10/21 12:00 37.3 C 81 24 91 01/10/21 11:09 62 108/56 L 100 01/10/21 10:14 68 25 H 104/53 L 96 01/10/21 09:09 60 24 95 01/10/21 08:09 68 103/63 93 01/10/21 08:00 37.7 C H 64 26 H 92 01/10/21 07:35 63 27 H 95 01/10/21 07:09 84 106/56 L 95 01/10/21 06:00 37.7 C H 76 93 01/10/21 05:38 82 128/69 95 01/10/21 05:00 81 95 01/10/21 04:54 78 34 H 94 01/10/21 04:09 69 120/63 98 Laboratory Results Short CBC 01/10/21 Range/Units 05:27 WBC 11.86 H (4.8-10.8) K/uL Hgb 9.3 L (12.0-16.0) g/dL Hct 29.8 L (37-47) % Plt Count 297 (130-400) K/uL BMP 01/10/21 05:27 Sodium 146 H Potassium 3.7 Chloride 113 H Carbon Dioxide 28 BUN 33 H D Creatinine 0.67 Glucose 134 H Calcium 8.5 Medications Administered Current Inpatient Medications Acetaminophen (Acetaminophen Susp 325 Mg/10.15 Ml Udc) 650 mg PO Q4H PRN PRN Reason: Pain or Fever Stop: 01/29/21 14:34 Last Admin: 01/10/21 07:40 Dose: 650 mg Documented by: Allopurinol (Allopurinol 100 Mg Tab) 100 mg PO DAILY [facility] Stop: 01/28/21 08:59 Last Admin: 01/10/21 08:00 Dose: 100 mg Documented by: Aspirin (Aspirin 81 Mg Chew) 81 mg PO DAILY [facility] Stop: 01/30/21 08:59 Last Admin: 01/10/21 08:00 Dose: 81 mg Documented by: Atorvastatin Calcium (Atorvastatin 20 Mg Tab) [facility]: 01/28/21 08:59 Last Admin: 01/10/21 08:00 Dose: 20 mg Documented by: Dextrose (Dextrose 50% 50 Ml Syringe) 25 - 50 ml IV UD PRN; Protocol PRN Reason: Hypoglycemia Protocol Stop: 01/27/21 21:34 Last Admin: 01/08/21 00:20 Dose: 50 ml Documented by: Enoxaparin Sodium (Enoxaparin 80 Mg/0.8 Ml Syr) 80 mg SQ Q12H [facility] Stop: 02/06/21 20:59 Last Admin: 01/10/21 08:00 Dose: 80 mg Documented by: Famotidine (Famotidine 20 Mg Tab) 20 mg PO QAM [facility] Stop: 01/30/21 11:44 Last Admin: 01/10/21 08:00 Dose: 20 mg Documented by: Glucagon (Glucagon For Inj 1 Mg Vial) 1 mg SQ UD PRN; Protocol PRN Reason: Hypoglycemia Protocol Stop: 01/27/21 21:34 Glucose (Glucose 10 Tabs/Tube) 4 - 8 tabs PO UD PRN; Protocol PRN Reason: Hypoglycemia Protocol Stop: 01/27/21 21:34 Glucose (Glucose 40% Gel 15 Gm Tube) 15 - 30 gm PO UD PRN; Protocol PRN Reason: Hypoglycemia Protocol Stop: 01/27/21 21:34 Heparin Sodium (Beef Lung) (Heparin 10 Unit/Ml 5 Ml Flush) 5 ml FLUSH PRN PRN PRN Reason: Flush Stop: 02/03/21 22:32 Last Admin: 01/09/21 07:56 Dose: 5 ml Documented by: Ceftaroline Fosamil 600 mg/ (Sodium Chloride) 270 mls @ 250 mls/hr IV Q8H SAVANNA[facility]; Protocol Stop: 01/15/21 10:00 Last Infusion: 01/10/21 13:32 Dose: Infused Documented by: Dexmedetomidine HCl 200 mcg/ (Sodium Chloride) 50 mls @ 3.77 mls/hr IV .[id number] SAVANNAH; Protocol Stop: 01/13/21 06:29 Last Admin: 01/10/21 15:57 Dose: Not Given Documented by: Insulin Aspart (Insulin Aspart 100 Units/Ml 3 Ml Pen) 0 units SC Q4 S[facility]ANNA[facility]; Protocol Stop: 02/07/21 15:59 Last Admin: 01/10/21 15:59 Dose: 7 units Documented by: Insulin Glargine (Insulin Glargine Solostar 100 Units/Ml 3 Ml Pen) 20 units SC QAM [facility]NA[facility] Stop: 02/08/21 08:59 Last Admin: 01/10/21 08:40 Dose: 20 units Documented by: Lactulose (Lactulose Syrup 20 Gm/30 Ml Udc) 20 gm PO DAILY PRN PRN Reason: constipation Stop: 01/31/21 13:29 Levothyroxine Sodium (Levothyroxine Sodium 25 Mcg Tablet) 25 mcg PO DAILYBB [facility]ANNA[facility] Stop: 01/28/21 06:29 Last Admin: 01/10/21 07:40 Dose: 25 mcg Documented by: Miscellaneous (Carbohydrates For Hypoglycemia ) 15 - 30 gm PO UD PRN PRN Reason: Hypoglycemia Protocol Stop: 01/27/21 21:34 Miscellaneous Information (Pharmacy Glycemic Mgmt Consult) 1 ea N/A UD PRN PRN Reason: Consult Stop: 01/28/21 08:57 Multivitamins/Minerals (Multi Vit W/Minerals Liquid 15 Ml Udp) 15 ml NG QAM [facility]NA[facility] Stop: 02/04/21 08:59 Last Admin: 01/10/21 08:00 Dose: 15 ml Documented by: Nutritional Formula (Peptamen Intense Vhp 1.0 Flip 1,000 Ml Bag) 1,000 ml OG UD SAVANNAH; Protocol Stop: 01/30/21 10:29 Last Admin: 01/10/21 12:11 Dose: 1,000 ml Documented by: Sterile Water (Tube Feeding Water Flush) 30 ml OG Q4H [facility]ANNA[facility] Stop: 02/04/21 11:59 Last Admin: 01/10/21 15:57 Dose: 30 ml Documented by:
[2021-01-10] MEDS ORDERED: MIDAZOLAM HCL 5 MG/ML 1 ML VIAL IV STA (22:54)
[2021-01-10] MEDS ORDERED: fentaNYL citrate 100 MCG/2 ML VIAL IV ONE (22:54)
[2021-01-10] MEDS ORDERED: fentaNYL citrate 100 MCG/2 ML VIAL ONE (23:04)
[2021-01-10] MEDS ORDERED: MIDAZOLAM HCL 1 MG/ML 2ML VIAL ONE (23:04)
[2021-01-11] MEDS: TUBE FEEDING WATER FLUSH OG SCH ×7 (00:07→23:10)
[2021-01-11] MEDS: CEFTAROLINE FOSAMIL ACETATE 600 MG in SODIUM CHLORIDE 0.9% 250 ML IV SCH ×3 (03:22→20:13)
[2021-01-11] MEDS: INSULIN ASPART 100 UNITS/ML 3 ML PEN SC SCH ×6 (03:29→23:41)
[2021-01-11 06:52] LABS: Basophils # (auto) 0.01 K/uL (0-0.2); Basophils % (auto) 0.1 %; Eosinophils # (auto) 0.32 K/uL (0-0.5); Eosinophils % (auto) 2.5 %; Hemoglobin 9.7 g/dL (12.0-16.0); Immature Granulocytes # (auto) 0.05 K/uL (0.00-0.02); Immature Granulocytes % (auto) 0.4 %; Lymphocytes # (auto) 1.01 K/uL (1.2-3.4); Lymphocytes % (auto) 7.8 %; Mean Corpuscular Hemoglobin 25.1 pg (25-34); Mean Corpuscular Hgb Conc 30.3 g/dL (32-36); Mean Corpuscular Volume 82.7 fL (80-100); Mean Platelet Volume 11.5 fL (7.4-10.4); Monocytes # (auto) 0.91 K/uL (0.11-0.59); Neutrophils # (auto) 10.67 K/uL (1.4-6.5); Neutrophils % (auto) 82.2 %; Platelet Count 320 K/uL (130-400); RDW Coefficient of Variation 13.8 % (11.5-14.5); RDW Standard Deviation 41.7 fL (36.4-46.3); Red Blood Count 3.87 M/uL (4.2-5.4); White Blood Count 12.97 K/uL (4.8-10.8)
[2021-01-11 07:23] LABS: BUN Creatinine Ratio 49.9 (10-20); Calcium 8.4 mg/dl (8.5-10.1); Creatinine Clr Calc Pharmacy 127.5 ml/min; Est GFR (African American) 125.4; Est GFR (Non-African American) 108.2; Magnesium 1.8 mg/dl (1.8-2.4); Phosphorus 3.9 mg/dl (2.5-4.9); Potassium 3.8 mmol/L (3.5-5.1)
[2021-01-11] MEDS: LEVOTHYROXINE SODIUM 25 MCG TABLET PO SCH (07:44)
[2021-01-11] MEDS: INSULIN GLARGINE SOLOSTAR 100 UNITS/ML 3 ML PEN SC SCH (07:44)
[2021-01-11] MEDS: ATORVASTATIN 20 MG TAB PO SCH (07:45)
[2021-01-11] MEDS: ASPIRIN 81 MG CHEW PO SCH (07:45)
[2021-01-11] MEDS: FAMOTIDINE 20 MG TAB PO SCH (07:45)
[2021-01-11] MEDS: ENOXAPARIN 80 MG/0.8 ML SYR SQ SCH ×2 (07:45→19:56)
[2021-01-11] MEDS: allopurinoL 100 MG TAB PO SCH (07:45)
[2021-01-11] MEDS: MULTI VIT W/MINERALS LIQUID 15 ML UDP NG SCH (07:45)
[2021-01-11] MEDS: ACETAMINOPHEN SUSP 325 MG/10.15 ML UDC PO PRN (07:48)
[2021-01-11] MEDS ORDERED: MAGNESIUM SULFATE / D5W 1 GM/100 ML BAG IV ONE (07:58)
[2021-01-11] MEDS: PEPTAMEN INTENSE VHP 1.0 CAL 1,000 ML BAG OG SCH (08:10)
[2021-01-11] MEDS: DEXMEDETOMIDINE HCL 200 MCG in SODIUM CHLORIDE 0.9% 48 ML IV SCH (08:15)
--- NOTE | 2021-01-11 08:58 | XRay Report ---
XR chest 1V portable CLINICAL HISTORY: f/u COMPARISON STUDY: Chest radiograph January 10, 2021. FINDINGS: Tip of nasogastric tube is at least within the body of the stomach. Tracheostomy tube is in place. There is no pneumothorax. No pleural effusion is identified. Elevation of the right hemidiaph ragm is unchanged. Right lung airspace opacities have slightly improved. Left lung opacities have als o slightly improved. IMPRESSION: Mild improvement in suspected multifocal pneumonia. ACT 112: Negative or not required by law. Electronically signed by: Doron Gong M.D. 01/11/2021 8:56 AM
--- NOTE | 2021-01-11 12:54 | Critical Care Progress Note ---
Date of Service January 11, 2021 Assessment & Plan (1) Pneumonia due to COVID-19 virus: (2) Acute hypoxemic respiratory failure: Reason Critically Ill: 55-year-old female with PMHx significant for poorly controlled diabetes and asthma, admitted for COVID-19 pneumonia and transferred to the ICU on 12/30 for acute hypoxic respiratory failure 2/2 to this. Tracheostomy performed on 01/07. ICU Day 10. Neuro - [facility] ICU: Negative -Try to wean off Precedex Cardiac - BLE venous duplex 01/07 showing RLE DVT - continue therapeutic Lovenox 80mg SQ Q12H - continue home Aspirin/Lipitor Respiratory - Acute hypoxic respiratory failure 2/2 COVID-19 pneumonia, tracheostomy placed on 01/07 - CXR showing stable presence of multifocal airspace opacities - s/p Dexamethasone x10 days on 01/07 - continue Ceftaroline as mentioned below GI - Failed swallow eval - continue tube feeds - Lactulose to PRN - strict I/Os RENAL/LYTES -Monitor BUNs/creatinine -Replace lites as needed - No concerns at this time ENDO - h/o diabetes, glycemic control per ICU protocol - continue Synthroid 25mcg PO daily for hypothyroidism HEME - - Stable H&H ID - COVID-19 pneumonia as well as MRSA sputum and E.coli UTI - s/p Dexamethasone x10 days on 01/07 - continue Ceftaroline 600mgIV Q8H x14 days --Prophylaxis VTE: Therapeutic Lovenox GI: Pepcid Lines: positive trach 01/07/2021 Diet: Tube feeds Plan: In/out: +1.1 L, urine output 1906 Patient did fairly well on trach collar yesterday. Would continue with trach collar during the day and see if she is able to tolerate even at night. If there is any respiratory distress will put the patient on pressure support again. Patient was on the chair at the time of examination. She again failed swallow eval today. We will continue with NGT feedings for the time being. Continue with swallow eval for the next couple of days if patient persistently fails will need a PEG tube placement. Patient hyponatremia has resolved. Hypomagnesemia being replaced. Continue with aggressive suctioning. Patient insurance has denied LTAC placement. I have personally spent 35 minutes of critical care time in the direct management of this patient. This is a life/limb threatening event. This includes time spent evaluating patient, direct bedside care, chart review, placing orders, interpretation of diagnostic studies, discussion with consultants, patient, and family members, as well as other required patient management activities. This time is exclusive of all separately billable procedures, and teaching time and separate from and in addition to any other critical care service time. Please note the above document was generated using voice recognition software. It may contain grammatical, syntax or spelling errors. Admission and Anticipated Discharge Date Admission Date: December 28, 2020 Subjective Patient seen and examined at bedside. NAD. JOSE overnight. Patient was on pressure support on vent overnight. Currently on trach collar. Sitting on the chair at the time of examination. Denies any chest pain, no headache, no nausea, no vomiting. No abdominal pain. Review of Systems Review of Systems: All systems reviewed & are unremarkable except as noted in Subjective Physical Exam Physical Exam: Constitutional: No acute distress HEENT: EOMI, PERRLA, positive trach, mild erythema around trach side, non tendor Respiratory system: Decreased air entry bilaterally, positive crackles bilaterally, no wheeze, no rhonchi CVS: S1-S2 positive, no murmurs or gallops Abdomen: Soft, nontender, nondistended, positive bowel sounds x4 Extremities: +2 pulses bilaterally radialis/ dorsalis pedis, no cyanosis, no edema Neuro: Awake alert oriented Psych: Normal mood and affect G/U: No Restrepo Skin: no rashes, warm and dry Lymphatic: no cervical or axillary lymphadenopathy Results & Data Results & Data ([facility]) Vital Signs (Past 12 Hours) Vital Signs Temp Pulse Resp BP Pulse Ox 01/11/21 09:09 99 H 22 138/81 94 01/11/21 08:32 108 H 167/89 H 96 01/11/21 08:00 37.2 C 01/11/21 07:09 88 138/76 94 01/11/21 07:00 93 H 95 01/11/21 03:31 85 30 H 93 01/11/21 05:51 01/11/21 05:51 Coding Level of Care Code Critical Care 1st 30-74 mins Diagnoses Pneumonia due to COVID-19 virus U07.1; J12.82 Acute hypoxemic respiratory failure J96.01 Time Spent (min) 35
--- NOTE | 2021-01-11 13:09 | Hospitalist Progress Note ---
Date of Service January 11, 2021 Assessment & Plan (1) Acute hypoxemic respiratory failure: Secondary to asthma exacerbation secondary to severe COVID-19 pneumonia, MRSA Pneumonia Possible Bacterial Pneumonia Initial CXR: Multifocal bilateral airspace opacities. This likely represents a viral pneumonia. Was on high flow O2 initially and failed to maintain saturation Appreciate commercial energy auditor input and recommendation S/p mechanical intubation 12/30/20 [facility] Vent Day # 8 , status post tracheotomy on 01/07/2021 Remains sedated as above 01/04/2021 and has not been requiring any more pressors Repeat chest x-ray did not show any improvement of the bilateral multilobar pneumonia Management of ventilator as per commercial energy auditor Status post bronchoscopy today with clearing of bronchial secretion Not been able to extubate yet and the patient may need tracheostomy down the line Getting prone therapy to improve saturation Status post tracheotomy on 01/07/2021 She was noted to be in distress this morning likely due to excessive secretion She has been back on a small dose of intravenous Precedex and remains sedated during my examination Gradual improvement-consideration is given for possible LTAC placement She is much better today and is out of bed on a chair Failed swallowing evaluation-we will continue NG tube feeding for now May require PEG tube placement down the line DVT in 2 right peroneal veins Started on Lovenox subcu twice daily she has been put on Lovenox subcu twice daily Likely has superimposed bacterial pneumonia blood cultures: negative Sputum culture: MRSA Received ceftriaxone IV x2 days transition to Ceftaroline IV day #8=9 White counts keep elevated and she remains febrile White count has been improving but he still has high temperature 37.8 Her white count remains elevated and still febrile Sputum has been sent for reculture and in the meantime we will continue intravenous Ceftraroline for a total of 14 days No more fever and white count has been improving Continue current antibiotic COVID-19 pneumonia Continue Decadron Day [address] Duvall's recommendation, basing on NIH guideline Convalescent plasma given Respiratory status has not been improving As above-finished the course of antiviral, convalescent plasma and steroid UTI E coli Ceftriaxone IV x2 days transition to Ceftaroline IV day #12 Hypertension Monitor ARF secondary to illness Resolved Diarrhea secondary to illness Resolved hyperlipidemia on statin Rx DM2 insulin requiring, suboptimal control asked off recent outpatient hemoglobin A1c of 12.28 November 2020 Glycemic pharmacy consult DVT prophylaxis. Heparin subcu Lovenox SC for DVT Prophylaxis Full code Overall prognosis remains poor Discussed with the patient daughter in detail on 01/05/2021 Prognosis remains poor Conference call with her daughter and the patient has been arranged for this a fternoon Her daughter is updated by the nursing staff Admission and Anticipated Discharge Date Admission Date: December 28, 2020 Subjective 01/04/2021 The patient was seen and examined in telemetry unit in ICU bed She remains intubated and sedated Plan for extubation today failed 01/05/2021 The patient was seen and examined in telemetry unit as ICU patient She remains ventilated and sedated 01/06/2021 The patient was seen and examined in telemetry unit as ICU patient She remains intubated and sedated She is getting prone therapy now 01/07/2021 The patient was seen and examined in telemetry unit with ICU status She is a status post tracheotomy and remains stable Trying to wean off from sedation 12/2020 The patient was seen and examined in telemetry unit with ICU status She has been off pressors and sedation Has been feeling much better 01/09/2021 The patient was seen and examined in telemetry unit with ICU status She was noted to be very distressed early this morning and requiring intravenous Precedex Remains stable and sedated during my examination 01/10/2021 The patient was seen and examined in telemetry unit with ICU status She is listed status post tracheostomy and has been improving gradually Responding to commands but not talking Remains generally weak and lethargic 01/11/2021 The patient was seen and examined in telemetry unit He has been doing much better today and is out of bed when a chair He is alert and awake still noncommunicative likely due to prolonged intubation Failed swallowing evaluation today Review of Systems Review of Systems: All systems reviewed and are unremarkable except as noted below Respiratory: + dyspnea; no cough Physical Exam Physical Exam: Sitting on a chair with minimal distress due to shortness of breath Constitutional: well developed, well nourished, + ill appearing and + obese Eyes: PERRL, conjunctivae normal, anicteric sclerae ENMT: external ear and nose normal, oropharynx normal Neck: trachea midline, no thyromegaly Respiratory: + respiratory distress Auscultation: + diminished lung sounds (Has been improving on both sides) and + crackles (Bilateral crackles) Cardiovascular: Rate/Rhythm: regular rate and regular rhythm Heart Sounds: no murmur Extremities: + edema (1+ edema bilaterally) Gastrointestinal (Abdomen): Inspection/Auscultation: normal bowel sounds; abdomen not distended Percussion/Palpation: abdomen soft Musculoskeletal: No acute arthritis in any joint Neurologic: Alert and awake. Generally weak and lethargic. Remains nonverbal likely secondary to prolonged intubation. Still not been swallowing Lymphatic: no cervical or axillary lymphadenopathy Results & Data Results & Data ([facility]) Vital Signs (Past 12 Hours) Vital Signs Temp Pulse Resp BP Pulse Ox 01/11/21 09:09 99 H 22 138/81 94 01/11/21 08:32 108 H 167/89 H 96 01/11/21 08:00 37.2 C 01/11/21 07:09 88 138/76 94 01/11/21 07:00 93 H 95 01/11/21 03:31 85 30 H 93 Laboratory Results Short CBC 01/11/21 Range/Units 05:51 WBC 12.97 H (4.8-10.8) K/uL Hgb 9.7 L (12.0-16.0) g/dL Hct 32.0 L (37-47) % Plt Count 320 (130-400) K/uL BMP 01/11/21 05:51 Sodium 142 Potassium 3.8 Chloride 112 H Carbon Dioxide 25 BUN 25 H Creatinine 0.50 L Glucose 190 H Calcium 8.4 L Medications Administered Current Inpatient Medications Acetaminophen (Acetaminophen Susp 325 Mg/10.15 Ml Udc) 650 mg PO Q4H PRN PRN Reason: Pain or Fever Stop: 01/29/21 14:34 Last Admin: 01/11/21 07:48 Dose: 650 mg Documented by: Allopurinol (Allopurinol 100 Mg Tab) 100 mg PO DAILY [facility] Stop: 01/28/21 08:59 Last Admin: 01/11/21 07:45 Dose: 100 mg Documented by: Aspirin (Aspirin 81 Mg Chew) 81 mg PO DAILY [facility] Stop: 01/30/21 08:59 Last Admin: 01/11/21 07:45 Dose: 81 mg Documented by: Atorvastatin Calcium (Atorvastatin 20 Mg Tab) 20 mg PO QAM [facility] Stop: 01/28/21 08:59 Last Admin: 01/11/21 07:45 Dose: 20 mg Documented by: Dextrose (Dextrose 50% 50 Ml Syringe) 25 - 50 ml IV UD PRN; Protocol PRN Reason: Hypoglycemia Protocol Stop: 01/27/21 21:34 Last Admin: 01/08/21 00:20 Dose: 50 ml Documented by: Enoxaparin Sodium (Enoxaparin 80 Mg/0.8 Ml Syr) 80 mg SQ Q12H [facility] Stop: 02/06/21 20:59 Last Admin: 01/11/21 07:45 Dose: 80 mg Documented by: Famotidine (Famotidine 20 Mg Tab) 20 mg PO QAM [facility] Stop: 01/30/21 11:44 Last Admin: 01/11/21 07:45 Dose: 20 mg Documented by: Glucagon (Glucagon For Inj 1 Mg Vial) 1 mg SQ UD PRN; Protocol PRN Reason: Hypoglycemia Protocol Stop: 01/27/21 21:34 Glucose (Glucose 10 Tabs/Tube) 4 - 8 tabs PO UD PRN; Protocol PRN Reason: Hypoglycemia Protocol Stop: 01/27/21 21:34 Glucose (Glucose 40% Gel 15 Gm Tube) 15 - 30 gm PO UD PRN; Protocol PRN Reason: Hypoglycemia Protocol Stop: 01/27/21 21:34 Heparin Sodium (Beef Lung) (Heparin 10 Unit/Ml 5 Ml Flush) 5 ml FLUSH PRN PRN PRN Reason: Flush Stop: 02/03/21 22:32 Last Admin: 01/09/21 07:56 Dose: 5 ml Documented by: Ceftaroline Fosamil 600 mg/ (Sodium Chloride) 270 mls @ 250 mls/hr IV Q8H [facility]; Protocol Stop: 01/15/21 10:00 Last Admin: 01/11/21 12:15 Dose: 270 mls/hr Documented by: Dexmedetomidine HCl 200 mcg/ (Sodium Chloride) 50 mls @ 3.77 mls/hr IV .[id number] [facility]; Protocol Stop: 01/13/21 06:29 Last Admin: 01/11/21 08:15 Dose: Not Given Documented by: Insulin Aspart (Insulin Aspart 100 Units/Ml 3 Ml Pen) 0 units SC Q4 [facility]; Protocol Stop: 02/07/21 15:59 Last Admin: 01/11/21 12:15 Dose: 11 units Documented by: Insulin Glargine (Insulin Glargine Solostar 100 Units/Ml 3 Ml Pen) 20 units SC QAM [facility] Stop: 02/08/21 08:59 Last Admin: 01/11/21 07:44 Dose: 20 units Documented by: Lactulose (Lactulose Syrup 20 Gm/30 Ml Udc) 20 gm PO DAILY PRN PRN Reason: constipation Stop: 01/31/21 13:29 Levothyroxine Sodium (Levothyroxine Sodium 25 Mcg Tablet) 25 mcg PO DAILYBB [facility] Stop: 01/28/21 06:29 Last Admin: 01/11/21 07:44 Dose: 25 mcg Documented by: Miscellaneous (Carbohydrates For Hypoglycemia ) 15 - 30 gm PO UD PRN PRN Reason: Hypoglycemia Protocol Stop: 01/27/21 21:34 Miscellaneous Information (Pharmacy Glycemic Mgmt Consult) 1 ea N/A UD PRN PRN Reason: Consult Stop: 01/28/21 08:57 Multivitamins/Minerals (Multi Vit W/Minerals Liquid 15 Ml Udp) 15 ml NG QAM [facility] Stop: 02/04/21 08:59 Last Admin: 01/11/21 07:45 Dose: 15 ml Documented by: Nutritional Formula (Peptamen Intense Vhp 1.0 Flip 1,000 Ml Bag) 1,000 ml OG UD [facility]; Protocol Stop: 01/30/21 10:29 Last Admin: 01/11/21 08:10 Dose: 1,000 ml Documented by: Sterile Water (Tube Feeding Water Flush) 30 ml OG Q4H [facility] Stop: 02/04/21 11:59 Last Admin: 01/11/21 12:15 Dose: 30 ml Documented by:
[2021-01-12] MEDS: CEFTAROLINE FOSAMIL ACETATE 600 MG in SODIUM CHLORIDE 0.9% 250 ML IV SCH ×3 (02:58→20:25)
[2021-01-12] MEDS: TUBE FEEDING WATER FLUSH OG SCH ×6 (04:22→23:41)
[2021-01-12] MEDS: LEVOTHYROXINE SODIUM 25 MCG TABLET PO SCH (04:23)
[2021-01-12] MEDS: INSULIN ASPART 100 UNITS/ML 3 ML PEN SC SCH ×6 (04:31→23:40)
[2021-01-12] MEDS: DEXMEDETOMIDINE HCL 200 MCG in SODIUM CHLORIDE 0.9% 48 ML IV SCH (07:45)
[2021-01-12] MEDS: ATORVASTATIN 20 MG TAB PO SCH (07:46)
[2021-01-12] MEDS: ASPIRIN 81 MG CHEW PO SCH (07:46)
[2021-01-12] MEDS: MULTI VIT W/MINERALS LIQUID 15 ML UDP NG SCH (07:46)
[2021-01-12] MEDS: ENOXAPARIN 80 MG/0.8 ML SYR SQ SCH ×2 (07:47→20:26)
[2021-01-12] MEDS: PEPTAMEN INTENSE VHP 1.0 CAL 1,000 ML BAG OG SCH (07:47)
[2021-01-12] MEDS: allopurinoL 100 MG TAB PO SCH (07:48)
--- NOTE | 2021-01-12 08:29 | XRay Report ---
XR chest 1V portable CLINICAL HISTORY: Respiratory failure COMPARISON STUDY: 01/11/2021 FINDINGS: The heart is borderline enlarged. There is a tracheostomy tube unchanged in position. There is an enteric tube which passes into the stomach. There is persistent elevation right hemidiaphragm. There are persistent bilateral pulmonary airspace opacities consistent with a multifocal pneumonia.[ IMPRESSION: Multifocal airspace opacities consistent with multifocal pneumonia, similar to the preced ing study. ACT 112: Negative or not required by law. Electronically signed by: Ruel Barnett M.D. 01/12/2021 8:27 AM
[2021-01-12 09:23] LABS: Basophils # (auto) 0.01 K/uL (0-0.2); Basophils % (auto) 0.1 %; Eosinophils # (auto) 0.33 K/uL (0-0.5); Eosinophils % (auto) 2.6 %; Hematocrit (blood only) 31.4 % (37-47); Hemoglobin 9.9 g/dL (12.0-16.0); Immature Granulocytes # (auto) 0.04 K/uL (0.00-0.02); Immature Granulocytes % (auto) 0.3 %; Lymphocytes # (auto) 0.91 K/uL (1.2-3.4); Lymphocytes % (auto) 7.1 %; Mean Corpuscular Hemoglobin 25.7 pg (25-34); Mean Corpuscular Hgb Conc 31.5 g/dL (32-36); Mean Corpuscular Volume 81.6 fL (80-100); Mean Platelet Volume 11.1 fL (7.4-10.4); Monocytes % (auto) 7.8 %; Neutrophils # (auto) 10.52 K/uL (1.4-6.5); Neutrophils % (auto) 82.1 %; Platelet Count 345 K/uL (130-400); RDW Coefficient of Variation 13.9 % (11.5-14.5); RDW Standard Deviation 41.7 fL (36.4-46.3); Red Blood Count 3.85 M/uL (4.2-5.4); White Blood Count 12.81 K/uL (4.8-10.8)
[2021-01-12 09:56] LABS: BUN Creatinine Ratio 33.5 (10-20); Est GFR (African American) 125.4; Est GFR (Non-African American) 108.2; Magnesium 1.9 mg/dl (1.8-2.4); Potassium 3.5 mmol/L (3.5-5.1)
[2021-01-12 09:57] LABS: Phosphorus 3.8 mg/dl (2.5-4.9)
[2021-01-12] MEDS: FAMOTIDINE 20 MG TAB PO SCH (10:30)
[2021-01-12] MEDS: INSULIN GLARGINE SOLOSTAR 100 UNITS/ML 3 ML PEN SC SCH (10:41)
--- NOTE | 2021-01-12 13:31 | Pharmacy Report ---
Pharmacy Glycemic Short Note 2 - Date of Service January 12, 2021 - Glycemic Short BSG Results (Last 24 hours): 01/11/21 01/11/21 01/11/21 15:47 20:14 23:08 Glucose POC Glucose 157 H 164 H 137 H 01/12/21 01/12/21 01/12/21 04:20 07:39 12:12 Glucose 171 H POC Glucose 146 H 160 H OUTPATIENT ANTIDIABETIC REGIMEN: * Levemir 24 units daily * Metformin * Empagliflozin * Dulaglutide * HbA1c 12.1 % 12/30/20 ASSESSMENT: 01/12 * BSGs have been stable over the past 48 hrs, yesterday [phone] mg/dL with 81 units of insulin * Today 146-171-160 mg/dL * Failed swallow Eval, continuing with tube feeds for now, possible PEG if unable to pass swallow * Will continue current parameters 01/10 * BSGs ranged from 114-201 mg/dL yesterday, 63 units of total insulin * Steroids have been discontinued, TF continue * BSGs have been stable today 141-155-140 mg/dL- will continue current dosing 01/08 * BSGs range between 70-153 mg/dL yesterday on 92 units of total insulin * Dexamethasone 10 days completed yesterday, NPH DC'd, Pepatmen on hold, s/p tracheostomy yesterday * Held Lantus this morning, restarting this afternoon at reduced dose for NPO status * Remains on Teflaro for MRSA Pnx 01/06 * BSGs range between 146-228 mg/dL yesterday on 161 units of total insulin * Dexamethasone Day #10, currently last dose ordered tomorrow @ 0900 AM * Did not increase NPH today, prandial BSG elevated at lunch, tightened carb ratio to 2.5 mg/dl * Suspect significant changes needed to regiman with discontinuation of steroids/ ?extubation (TF would be held), continue to monitor. 01/05: * BSGs range between 120-282 mg/dL yesterday on 161 units of total insulin. * Blood sugars continue to fluctuate. I did increase NPH dose this morning. * Only two days of steroid therapy left on current regimen. Anticipate BSGs im proving and insulin needs decreasing significantly once steroids completed * Patients continues on tube feeds. 01/03: * BSGs remained in the 200s most of yesterday with ~111 units of total insulin * Will increase NPH today to help with mid day steroid effects and tighten novolog. * Steroids and tube feeds continue. 01/01 * BSGs trended down nicely with insulin infusion * Increased NPH to ~0.4 unit/kg dosing to be given with IV dexamethasone * Increased Lantus to 40 units SC today (full weight-based stress of 3 dosing) * BSGs have remained reasonably well-controlled while on insulin infusion at 1 unit/hr for past 2 hours - will transition insulin infusion today * Tube feeds likely to be advanced today 12/31 * BSGs have been elevated over past 24 hours (196-254 mg/dL) * Peptamen intense VHP continuous tube feeds initiated today at 10 mL/hr * Will add q4h Novolog to cover tube feeds * Continues on dexamethasone 6 mg IV daily - will cover with NPH * BSG at lunchtime of 232 mg/dL - will start insulin infusion 12/30 * BSGs well controlled yesterday, however patient required intubation this AM and is now sedated, ventilated and requiring norepi for pressor support * AM doses of ordered NPH and Lantus were not given. Nor has BSG been checked since intubation * Will give basal insulin dose (Lantus alone) w/ 1600 BSG check - dose will be based upon last 24 hr requirement * Novolog will be dosed Q 4 hrs with CF and CR doses based upon "severe" stress level * Would recommend initiating IV insulin drip per protocol, goal range 120- 180mg/dL if BSG > 220 x 1 or greater than 180 x 2 12/29 * 55 yo F with T2DM admitted 12/28 for acute resp failure 2nd COVID, asthma. Currently NPO, on BiPAP, and receiving dexamethasone * BSG's persistently >180 mg/dL x4 thus far, likely 2nd insufficient basal insulin and correction factor. Will tighten PLAN FOR INPATIENT GLYCEMIC CONTROL: * Hold outpatient oral diabetes medications * Basal insulin * Lantus 20 units SQ daily * Bolus insulin * NovoLog per scale q 6 hrs * Goal Range: Low 110 mg/dL - High 140 mg/dL * Correction Factor: 10 mg/dL/unit * Nutritional / Prandial insulin per carb ratio of 1 unit per 2.5 grams CHO consumed * Instructions added to cover tube feeds (Peptamen Intense VHP)
[2021-01-12] MEDS ORDERED: POTASSIUM CHLORIDE 20 MEQ/15 ML UDC PO STA (13:37)
--- NOTE | 2021-01-12 13:43 | Critical Care Progress Note ---
Date of Service January 12, 2021 Assessment & Plan (1) Pneumonia due to COVID-19 virus: (2) Acute hypoxemic respiratory failure: Reason Critically Ill: 55-year-old female with PMHx significant for poorly controlled diabetes and asthma, admitted for COVID-19 pneumonia and transferred to the ICU on 12/30 for acute hypoxic respiratory failure 2/2 to this. Tracheostomy performed on 01/07. ICU Day 10. Neuro - [facility] ICU: Negative Cardiac - BLE venous duplex 01/07 showing RLE DVT - continue therapeutic Lovenox 80mg SQ Q12H - continue home Aspirin/Lipitor Respiratory - TDRF with Acute hypoxic respiratory failure 2/2 COVID-19 pneumonia, tracheostomy placed on 01/07/21 - CXR showing stable presence of multifocal airspace opacities - s/p Dexamethasone x10 days on 01/07 - continue Ceftaroline as mentioned below GI - Failed swallow eval - continue tube feeds - Lactulose to PRN - strict I/Os RENAL/LYTES -Monitor BUNs/creatinine -Replace lites as needed - No concerns at this time ENDO - h/o diabetes, glycemic control per ICU protocol - continue Synthroid 25mcg PO daily for hypothyroidism HEME - - Stable H&H ID - COVID-19 pneumonia as well as MRSA sputum and E.coli UTI - s/p Dexamethasone x10 days on 01/07 - continue Ceftaroline 600mgIV Q8H x14 days total --Prophylaxis VTE: Therapeutic Lovenox GI: Pepcid Lines: positive trach 01/07/2021 Diet: Tube feeds Plan: In/out: +2101, urine output 502 Patient failed swallow eval yesterday. Continue with daily swallow eval's to see if she 60s. If she does not succeed by early next week then thinking about PEG tube by next week should be thought of. Hypomagnesemia being replaced. Potassium also being replaced. Patient is doing fairly well on trach collar. Continue with same. Aggressive physical therapy and OT. We will take the sutures out on 01/14/2021 Patient is hemodynamically stable to be sent out of the ICU. Pulmonary will continue to follow peripherally. Please note the above document was generated using voice recognition software. It may contain grammatical, syntax or spelling errors.Any formal questions or concerns about the content, text or information contained within the body of this dictation should be directly addressed to the provider for clarification. Admission and Anticipated Discharge Date Admission Date: December 28, 2020 Subjective Patient seen and examined at bedside. No acute distress, no adverse events overnight. Patient tolerated trach collar for more than 24 hours. Denies any chest pain, no headache, no nausea, no vomiting. Does complain of some cough and bringing up phlegm through the trach. Denies any neck pain. She said that she is sad. I did give her emotional support that she is making good progress and hopefully she will be out of the hospital in the near future. Review of Systems Review of Systems: All systems reviewed & are unremarkable except as noted in Subjective Physical Exam Physical Exam: Constitutional: No acute distress HEENT: EOMI, PERRLA, positive trach, mild erythema around trach side, non tendor Respiratory system: Decreased air entry bilaterally, positive crackles dionicio aterally, no wheeze, no rhonchi CVS: S1-S2 positive, no murmurs or gallops Abdomen: Soft, nontender, nondistended, positive bowel sounds x4 Extremities: +2 pulses bilaterally radialis/ dorsalis pedis, no cyanosis, no edema Neuro: Awake alert oriented Psych: Normal mood and affect G/U: No Restrepo Skin: no rashes, warm and dry Lymphatic: no cervical or axillary lymphadenopathy Results & Data Results & Data ([facility]) Vital Signs (Past 12 Hours) Vital Signs Temp Pulse Resp BP Pulse Ox 01/12/21 11:50 94 01/12/21 08:00 94 H 93 01/12/21 07:00 104 H 96 01/12/21 06:00 103 H 20 93 01/12/21 05:30 108 H 20 95 01/12/21 05:00 103 H 22 95 01/12/21 04:30 87 16 95 01/12/21 04:00 37 C 87 20 139/92 94 01/12/21 03:30 96 H 18 94 01/12/21 03:00 89 16 94 01/12/21 02:30 83 18 91 01/12/21 02:00 95 H 20 162/93 H 92 01/12/21 07:39 01/12/21 07:39 Coding Level of Care Code 22292 Subseq Hosp Care Lvl 3 Diagnoses Pneumonia due to COVID-19 virus U07.1; J12.82 Acute hypoxemic respiratory failure J96.01
[2021-01-12] MEDS ORDERED: FUROSEMIDE 40 MG in SYRINGE 0 ML IV ONE (14:00)
[2021-01-12] MEDS ORDERED: MAGNESIUM SULFATE / D5W 1 GM/100 ML BAG IV ONE (14:00)
--- NOTE | 2021-01-12 14:16 | Hospitalist Progress Note ---
Date of Service January 12, 2021 Assessment & Plan (1) Acute hypoxemic respiratory failure: Secondary to asthma exacerbation secondary to severe COVID-19 pneumonia, MRSA Pneumonia Possible Bacterial Pneumonia Initial CXR: Multifocal bilateral airspace opacities. This likely represents a viral pneumonia. Was on high flow O2 initially and failed to maintain saturation Appreciate evaluation manager input and recommendation S/p mechanical intubation 12/30/20 Mech Vent Day # 8 , status post tracheotomy on 01/07/2021 Remains sedated as above 01/04/2021 and has not been requiring any more pressors Repeat chest x-ray did not show any improvement of the bilateral multilobar pneumonia Management of ventilator as per evaluation manager Status post bronchoscopy today with clearing of bronchial secretion Not been able to extubate yet and the patient may need tracheostomy down the line Getting prone therapy to improve saturation Status post tracheotomy on 01/07/2021 She was noted to be in distress this morning likely due to excessive secretion She has been back on a small dose of intravenous Precedex and remains sedated during my examination Gradual improvement-consideration is given for possible LTAC placement She is much better today and is out of bed on a chair Failed swallowing evaluation-we will continue NG tube feeding for now May require PEG tube placement down the line Remains stable with minimal improvement of general condition-she was transferred to [facility] telemetry unit We will continue NG tube feeding for now and the evaluation for swallowing on Saturday DVT in 2 right peroneal veins Started on Lovenox subcu twice daily she has been put on Lovenox subcu twice daily Likely has superimposed bacterial pneumonia blood cultures: negative Sputum culture: MRSA Received ceftriaxone IV x2 days transition to Ceftaroline IV day #8=9 White counts keep elevated and she remains febrile White count has been improving but he still has high temperature 37.8 Her white count remains elevated and still febrile Sputum has been sent for reculture and in the meantime we will continue intraven ous Ceftraroline for a total of 14 days No more fever and white count has been improving Continue current antibiotic to finish a total course of 14 days COVID-19 pneumonia Continue Decadron Day [address] Duvall's recommendation, basing on NIH guideline Convalescent plasma given Respiratory status has not been improving As above-finished the course of antiviral, convalescent plasma and steroid UTI E coli Ceftriaxone IV x2 days transition to Ceftaroline IV day #13 Hypertension Monitor ARF secondary to illness Resolved Diarrhea secondary to illness Resolved hyperlipidemia on statin Rx DM2 insulin requiring, suboptimal control asked off recent outpatient hemoglobin A1c of 12.28 November 2020 Glycemic pharmacy consult DVT prophylaxis. Heparin subcu Lovenox SC for DVT Prophylaxis Full code Overall prognosis remains poor Discussed with the patient daughter in detail on 01/05/2021 Prognosis remains poor Conference call with her daughter and the patient has been arranged for this afternoon Her daughter is updated by the nursing staff Admission and Anticipated Discharge Date Admission Date: December 28, 2020 Subjective 01/04/2021 The patient was seen and examined in telemetry unit in ICU bed She remains intubated and sedated Plan for extubation today failed 01/05/2021 The patient was seen and examined in telemetry unit as ICU patient She remains ventilated and sedated 01/06/2021 The patient was seen and examined in telemetry unit as ICU patient She remains intubated and sedated She is getting prone therapy now 01/07/2021 The patient was seen and examined in telemetry unit with ICU status She is a status post tracheotomy and remains stable Trying to wean off from sedation 12/2020 The patient was seen and examined in telemetry unit with ICU status She has been off pressors and sedation Has been feeling much better 01/09/2021 The patient was seen and examined in telemetry unit with ICU status She was noted to be very distressed early this morning and requiring intravenous Precedex Remains stable and sedated during my examination 01/10/2021 The patient was seen and examined in telemetry unit with ICU status She is listed status post tracheostomy and has been improving gradually Responding to commands but not talking Remains generally weak and lethargic 01/11/2021 The patient was seen and examined in telemetry unit He has been doing much better today and is out of bed when a chair He is alert and awake still noncommunicative likely due to prolonged intubation Failed swallowing evaluation today 01/12/2021 The patient was seen and examined in telemetry unit She remains stable and improving very gradually Complaints of shortness of breath denies any significant pain No fever and/or chills Noted to have tachycardia with ambulation Review of Systems Review of Systems: All systems reviewed and are unremarkable except as noted below Respiratory: + dyspnea; no cough Physical Exam Physical Exam: Sitting on a chair with minimal distress due to shortness of breath Constitutional: well developed, well nourished, + ill appearing and + obese Eyes: PERRL, conjunctivae normal, anicteric sclerae ENMT: external ear and nose normal, oropharynx normal Neck: trachea midline, no thyromegaly Respiratory: + respiratory distress Auscultation: + diminished lung sounds (Has been improving on both sides) and + crackles (Bilateral crackles) Cardiovascular: Rate/Rhythm: regular rate and regular rhythm Heart Sounds: no murmur Extremities: + edema (1+ edema bilaterally) Gastrointestinal (Abdomen): Inspection/Auscultation: normal bowel sounds; abdomen not distended Percussion/Palpation: abdomen soft Musculoskeletal: No acute arthritis in any joint Neurologic: Alert, awake and oriented. Generally very weak and lethargic Lymphatic: no cervical or axillary lymphadenopathy Results & Data Results & Data ([facility]) Vital Signs (Past 12 Hours) Vital Signs Temp Pulse Resp BP Pulse Ox 01/12/21 11:50 94 01/12/21 08:00 94 H 93 01/12/21 07:00 104 H 96 01/12/21 06:00 103 H 20 93 01/12/21 05:30 108 H 20 95 01/12/21 05:00 103 H 22 95 01/12/21 04:30 87 16 95 01/12/21 04:00 37 C 87 20 139/92 94 01/12/21 03:30 96 H 18 94 01/12/21 03:00 89 16 94 01/12/21 02:30 83 18 91 Laboratory Results Short CBC 01/12/21 Range/Units 07:39 WBC 12.81 H (4.8-10.8) K/uL Hgb 9.9 L (12.0-16.0) g/dL Hct 31.4 L (37-47) % Plt Count 345 (130-400) K/uL BMP 01/12/21 07:39 Sodium 141 Potassium 3.5 Chloride 110 H Carbon Dioxide 26 BUN 17 Creatinine 0.50 L Glucose 171 H Calcium 9.0 Medications Administered Current Inpatient Medications Acetaminophen (Acetaminophen Susp 325 Mg/10.15 Ml Udc) 650 mg PO Q4H PRN PRN Reason: Pain or Fever Stop: 01/29/21 14:34 Last Admin: 01/11/21 07:48 Dose: 650 mg Documented by: Allopurinol (Allopurinol 100 Mg Tab) 100 mg PO DAILY [facility] Stop: 01/28/21 08:59 Last Admin: 01/12/21 07:48 Dose: 100 mg Documented by: Aspirin (Aspirin 81 Mg Chew) 81 mg PO DAILY [facility] Stop: 01/30/21 08:59 Last Admin: 01/12/21 07:46 Dose: 81 mg Documented by: Atorvastatin Calcium (Atorvastatin 20 Mg Tab) 20 mg PO QAM [facility] Stop: 01/28/21 08:59 Last Admin: 01/12/21 07:46 Dose: 20 mg Documented by: Dextrose (Dextrose 50% 50 Ml Syringe) 25 - 50 ml IV UD PRN; Protocol PRN Reason: Hypoglycemia Protocol Stop: 01/27/21 21:34 Last Admin: 01/08/21 00:20 Dose: 50 ml Documented by: Enoxaparin Sodium (Enoxaparin 80 Mg/0.8 Ml Syr) 80 mg SQ Q12H [facility] Stop: 02/06/21 20:59 Last Admin: 01/12/21 07:47 Dose: 80 mg Documented by: Famotidine (Famotidine 20 Mg Tab) 20 mg PO QAM [facility] Stop: 01/30/21 11:44 Last Admin: 01/12/21 10:30 Dose: 20 mg Documented by: Glucagon (Glucagon For Inj 1 Mg Vial) 1 mg SQ UD PRN; Protocol PRN Reason: Hypoglycemia Protocol Stop: 01/27/21 21:34 Glucose (Glucose 10 Tabs/Tube) 4 - 8 tabs PO UD PRN; Protocol PRN Reason: Hypoglycemia Protocol Stop: 01/27/21 21:34 Glucose (Glucose 40% Gel 15 Gm Tube) 15 - 30 gm PO UD PRN; Protocol PRN Reason: Hypoglycemia Protocol Stop: 01/27/21 21:34 Guaifenesin (Guaifenesin Sugar Free 200 Mg/10 Ml Udc) 200 mg PO Q4H PRN PRN Reason: CONGESTION Stop: 02/11/21 12:29 Heparin Sodium (Beef Lung) (Heparin 10 Unit/Ml 5 Ml Flush) 5 ml FLUSH PRN PRN PRN Reason: Flush Stop: 02/03/21 22:32 Last Admin: 01/09/21 07:56 Dose: 5 ml Documented by: Ceftaroline Fosamil 600 mg/ (Sodium Chloride) 270 mls @ 250 mls/hr IV Q8H SAVANNAH; Protocol Stop: 01/15/21 10:00 Last Infusion: 01/12/21 12:57 Dose: Infused Documented by: Magnesium Sulfate/Dextrose (Magnesium Sulfate / D5w) 1 gm in 100 mls @ 50 mls/hr IV ONE ONE Stop: 01/12/21 15:59 Insulin Aspart (Insulin Aspart 100 Units/Ml 3 Ml Pen) 0 units SC Q4 SAVANNAH; Protocol Stop: 02/07/21 15:59 Last Admin: 01/12/21 13:37 Dose: 9 units Documented by: Insulin Glargine (Insulin Glargine Solostar 100 Units/Ml 3 Ml Pen) 20 units SC QAM SAVANNA[facility] Stop: 02/08/21 08:59 Last Admin: 01/12/21 10:41 Dose: 20 units Documented by: Lactulose (Lactulose Syrup 20 Gm/30 Ml Udc) 20 gm PO DAILY PRN PRN Reason: constipation Stop: 01/31/21 13:29 Levothyroxine Sodium (Levothyroxine Sodium 25 Mcg Tablet) 25 mcg PO DAILYBB [facility] Stop: 01/28/21 06:29 Last Admin: 01/12/21 04:23 Dose: 25 mcg Documented by: Miscellaneous (Carbohydrates For Hypoglycemia ) 15 - 30 gm PO UD PRN PRN Reason: Hypoglycemia Protocol Stop: 01/27/21 21:34 Miscellaneous Information (Pharmacy Glycemic Mgmt Consult) 1 ea N/A UD PRN PRN Reason: Consult Stop: 01/28/21 08:57 Multivitamins/Minerals (Multi Vit W/Minerals Liquid 15 Ml Udp) 15 ml NG QAM [facility] Stop: 02/04/21 08:59 Last Admin: 01/12/21 07:46 Dose: 15 ml Documented by: Nutritional Formula (Peptamen Intense Vhp 1.0 Flip 1,000 Ml Bag) 1,000 ml OG UD [facility]; Protocol Stop: 01/30/21 10:29 Last Admin: 01/12/21 07:47 Dose: 1,000 ml Documented by: Sterile Water (Tube Feeding Water Flush) 30 ml OG Q4H [facility]NA[facility] Stop: 02/04/21 11:59 Last Admin: 01/12/21 11:22 Dose: 30 ml Documented by:
[2021-01-12] MEDS: guaiFENesin SUGAR FREE 200 MG/10 ML UDC PO PRN (15:12)
[2021-01-13] MEDS: CEFTAROLINE FOSAMIL ACETATE 600 MG in SODIUM CHLORIDE 0.9% 250 ML IV SCH ×3 (03:31→19:46)
[2021-01-13] MEDS: TUBE FEEDING WATER FLUSH OG SCH ×5 (03:32→19:58)
[2021-01-13] MEDS: INSULIN ASPART 100 UNITS/ML 3 ML PEN SC SCH ×5 (03:41→20:00)
[2021-01-13] MEDS: LEVOTHYROXINE SODIUM 25 MCG TABLET PO SCH (05:51)
[2021-01-13 07:32] LABS: Basophils # (auto) 0.02 K/uL (0-0.2); Basophils % (auto) 0.2 %; Eosinophils # (auto) 0.28 K/uL (0-0.5); Eosinophils % (auto) 2.8 %; Hematocrit (blood only) 32.8 % (37-47); Hemoglobin 10.3 g/dL (12.0-16.0); Immature Granulocytes # (auto) 0.03 K/uL (0.00-0.02); Immature Granulocytes % (auto) 0.3 %; Lymphocytes # (auto) 0.72 K/uL (1.2-3.4); Lymphocytes % (auto) 7.2 %; Mean Corpuscular Hemoglobin 25.7 pg (25-34); Mean Corpuscular Hgb Conc 31.4 g/dL (32-36); Mean Corpuscular Volume 81.8 fL (80-100); Mean Platelet Volume 10.9 fL (7.4-10.4); Monocytes # (auto) 0.75 K/uL (0.11-0.59); Monocytes % (auto) 7.5 %; Neutrophils # (auto) 8.18 K/uL (1.4-6.5); Platelet Count 306 K/uL (130-400); RDW Standard Deviation 42.2 fL (36.4-46.3); Red Blood Count 4.01 M/uL (4.2-5.4); White Blood Count 9.98 K/uL (4.8-10.8)
[2021-01-13] MEDS: PEPTAMEN INTENSE VHP 1.0 CAL 1,000 ML BAG OG SCH (07:55)
[2021-01-13] MEDS: MULTI VIT W/MINERALS LIQUID 15 ML UDP NG SCH (07:56)
[2021-01-13 07:57] LABS: BUN Creatinine Ratio 39.7 (10-20); Calcium 9.1 mg/dl (8.5-10.1); Creatinine Clr Calc Pharmacy 121.1 ml/min; Est GFR (African American) 122.3; Est GFR (Non-African American) 105.5; Potassium 3.6 mmol/L (3.5-5.1)
[2021-01-13] MEDS: FAMOTIDINE 20 MG TAB PO SCH (07:57)
[2021-01-13] MEDS: ATORVASTATIN 20 MG TAB PO SCH (07:58)
[2021-01-13] MEDS: allopurinoL 100 MG TAB PO SCH (07:58)
[2021-01-13 07:59] LABS: Phosphorus 4.4 mg/dl (2.5-4.9)
[2021-01-13] MEDS: ASPIRIN 81 MG CHEW PO SCH (07:59)
[2021-01-13] MEDS: ENOXAPARIN 80 MG/0.8 ML SYR SQ SCH ×2 (08:00→19:59)
[2021-01-13] MEDS: INSULIN GLARGINE SOLOSTAR 100 UNITS/ML 3 ML PEN SC SCH (10:51)
--- NOTE | 2021-01-13 13:14 | Pharmacy Report ---
Pharmacy Glycemic Short Note 2 - Date of Service January 13, 2021 - Glycemic Short BSG Results (Last 24 hours): 01/12/21 01/12/21 01/12/21 16:46 20:46 23:02 Glucose POC Glucose 115 H 160 H 133 H 01/13/21 01/13/21 01/13/21 03:38 07:00 07:13 Glucose 114 H POC Glucose 154 H 119 H 01/13/21 11:14 Glucose POC Glucose 146 H OUTPATIENT ANTIDIABETIC REGIMEN: * Levemir 24 units daily * Metformin * Empagliflozin * Dulaglutide * HbA1c 12.1 % 12/30/20 ASSESSMENT: 01/13 * BSGs [phone] mg/dL yesterday with 71 units of insulin * Blood sugars seem to be trending downward, will slightly loosen parameters today * Considering switch to q6H checks * Continue on TF, next swallow eval will be Saturday. Patient will not be going to [facility] as not accepted by insurance 01/12 * BSGs have been stable over the past 48 hrs, yesterday [phone] mg/dL with 81 units of insulin * Today 146-171-160 mg/dL * Failed swallow Eval, continuing with tube feeds for now, possible PEG if unabl e to pass swallow * Will continue current parameters 01/10 * BSGs ranged from 114-201 mg/dL yesterday, 63 units of total insulin * Steroids have been discontinued, TF continue * BSGs have been stable today 141-155-140 mg/dL- will continue current dosing 01/08 * BSGs range between 70-153 mg/dL yesterday on 92 units of total insulin * Dexamethasone 10 days completed yesterday, NPH DC'd, Pepatmen on hold, s/p tracheostomy yesterday * Held Lantus this morning, restarting this afternoon at reduced dose for NPO status * Remains on Teflaro for MRSA Pnx 01/06 * BSGs range between 146-228 mg/dL yesterday on 161 units of total insulin * Dexamethasone Day #10, currently last dose ordered tomorrow @ 0900 AM * Did not increase NPH today, prandial BSG elevated at lunch, tightened carb ratio to 2.5 mg/dl * Suspect significant changes needed to regimen with discontinuation of steroids/ ?extubation (TF would be held), continue to monitor. 3/18: * BSGs range between 120-282 mg/dL yesterday on 161 units of total insulin. * Blood sugars continue to fluctuate. I did increase NPH dose this morning. * Only two days of steroid therapy left on current regimen. Anticipate BSGs improving and insulin needs decreasing significantly once steroids completed * Patients continues on tube feeds. 01/03: * BSGs remained in the 200s most of yesterday with ~111 units of total insulin * Will increase NPH today to help with mid day steroid effects and tighten novolog. * Steroids and tube feeds continue. 01/01 * BSGs trended down nicely with insulin infusion * Increased NPH to ~0.4 unit/kg dosing to be given with IV dexamethasone * Increased Lantus to 40 units SC today (full weight-based stress of 3 dosing) * BSGs have remained reasonably well-controlled while on insulin infusion at 1 unit/hr for past 2 hours - will transition insulin infusion today * Tube feeds likely to be advanced today 12/31 * BSGs have been elevated over past 24 hours (196-254 mg/dL) * Peptamen intense VHP continuous tube feeds initiated today at 10 mL/hr * Will add q4h Novolog to cover tube feeds * Continues on dexamethasone 6 mg IV daily - will cover with NPH * BSG at lunchtime of 232 mg/dL - will start insulin infusion 12/30 * BSGs well controlled yesterday, however patient required intubation this AM and is now sedated, ventilated and requiring norepi for pressor support * AM doses of ordered NPH and Lantus were not given. Nor has BSG been checked since intubation * Will give basal insulin dose (Lantus alone) w/ 1600 BSG check - dose will be based upon last 24 hr requirement * Novolog will be dosed Q 4 hrs with CF and CR doses based upon "severe" stress level * Would recommend initiating IV insulin drip per protocol, goal range 120- 180mg/dL if BSG > 220 x 1 or greater than 180 x 2 12/29 * 55 yo F with T2DM admitted 12/28 for acute resp failure 2nd COVID, asthma. Currently NPO, on BiPAP, and receiving dexamethasone * BSG's persistently >180 mg/dL x4 thus far, likely 2nd insufficient basal insulin and correction factor. Will tighten PLAN FOR INPATIENT GLYCEMIC CONTROL: * Hold outpatient oral diabetes medications * Basal insulin * Lantus 20 units SQ daily * Bolus insulin * NovoLog per scale q 6 hrs * Goal Range: Low 110 mg/dL - High 140 mg/dL * Correction Factor: 15 mg/dL/unit * Nutritional / Prandial insulin per carb ratio of 1 unit per 3 grams CHO consumed * Instructions added to cover tube feeds (Peptamen Intense VHP)
--- NOTE | 2021-01-13 15:43 | Hospitalist Progress Note ---
Date of Service January 13, 2021 Assessment & Plan (1) Acute hypoxemic respiratory failure: Secondary to asthma exacerbation secondary to severe COVID-19 pneumonia, MRSA Pneumonia Possible Bacterial Pneumonia Initial CXR: Multifocal bilateral airspace opacities. This likely represents a viral pneumonia. Was on high flow O2 initially and failed to maintain saturation Appreciate chair input and recommendation S/p mechanical intubation 12/30/20 Mech Vent Day # 8 , status post tracheotomy on 01/07/2021 Remains sedated as above 01/04/2021 and has not been requiring any more pressors Repeat chest x-ray did not show any improvement of the bilateral multilobar pneumonia Management of ventilator as per chair Status post bronchoscopy today with clearing of bronchial secretion Not been able to extubate yet and the patient may need tracheostomy down the line Getting prone therapy to improve saturation Status post tracheotomy on 01/07/2021 She was noted to be in distress this morning likely due to excessive secretion She has been back on a small dose of intravenous Precedex and remains sedated during my examination Gradual improvement-consideration is given for possible LTAC placement-which was denied She is much better today and is out of bed on a chair Failed swallowing evaluation-we will continue NG tube feeding for now May require PEG tube placement down the line Remains stable with minimal improvement of general condition-she was transferred to [facility] telemetry unit We will continue NG tube feeding for now and the evaluation for swallowing on Saturday DVT in 2 right peroneal veins Started on Lovenox subcu twice daily she has been put on Lovenox subcu twice daily Continue Lovenox subcu twice daily Likely has superimposed bacterial pneumonia blood cultures: negative Sputum culture: MRSA Received ceftriaxone IV x2 days transition to Ceftaroline IV day #8=9 White counts keep elevated and she remains febrile White count has been improving but he still has high temperature 37.8 Her white count remains elevated and still febrile Sputum has been sent for reculture and in the meantime we will continue intravenous Ceftraroline for a total of 14 days No more fever and white count has been improving Continue current antibiotic to finish a total course of 14 days Ceftraroline will be discontinued on of this month COVID-19 pneumonia Continue Decadron Day [address] Duvall's recommendation, basing on NIH guideline Convalescent plasma given Respiratory status has not been improving As above-finished the course of antiviral, convalescent plasma and steroid She can be taken off isolation from Covid 19 as per infectious disease UTI E coli Ceftriaxone IV x2 days transition to Ceftaroline IV day #13 Hypertension Monitor ARF secondary to illness Resolved Diarrhea secondary to illness Resolved hyperlipidemia on statin Rx DM2 insulin requiring, suboptimal control asked off recent outpatient hemoglobin A1c of 12.28 November 2020 Glycemic pharmacy consult DVT prophylaxis. Heparin subcu Lovenox SC for DVT Prophylaxis Full code Overall prognosis remains poor Discussed with the patient daughter in detail on 01/05/2021 Conference call with her daughter and the patient has been arranged for this afternoon Gradual improvement of her condition-we will need placement on discharge Admission and Anticipated Discharge Date Admission Date: December 28, 2020 Subjective 01/04/2021 The patient was seen and examined in telemetry unit in ICU bed She remains intubated and sedated Plan for extubation today failed 01/05/2021 The patient was seen and examined in telemetry unit as ICU patient She remains ventilated and sedated 01/06/2021 The patient was seen and examined in telemetry unit as ICU patient She remains intubated and sedated She is getting prone therapy now 01/07/2021 The patient was seen and examined in telemetry unit with ICU status She is a status post tracheotomy and remains stable Trying to wean off from sedation 12/2020 The patient was seen and examined in telemetry unit with ICU status She has been off pressors and sedation Has been feeling much better 01/09/2021 The patient was seen and examined in telemetry unit with ICU status She was noted to be very distressed early this morning and requiring intravenous Precedex Remains stable and sedated during my examination 01/10/2021 The patient was seen and examined in telemetry unit with ICU status She is listed status post tracheostomy and has been improving gradually Responding to commands but not talking Remains generally weak and lethargic 01/11/2021 The patient was seen and examined in telemetry unit He has been doing much better today and is out of bed when a chair He is alert and awake still noncommunicative likely due to prolonged intubation Failed swallowing evaluation today 01/12/2021 The patient was seen and examined in telemetry unit She remains stable and improving very gradually Complaints of shortness of breath denies any significant pain No fever and/or chills Noted to have tachycardia with ambulation 01/13/2021 The patient was seen and examined in the telemetry unit She remains stable and improving gradually Denies any significant symptoms except weakness Review of Systems Review of Systems: All systems reviewed and are unremarkable except as noted below Respiratory: + dyspnea; no cough Physical Exam Physical Exam: Sitting on a chair with minimal distress due to shortness of breath Constitutional: well developed, well nourished, + ill appearing and + obese Eyes: PERRL, conjunctivae normal, anicteric sclerae ENMT: external ear and nose normal, oropharynx normal Neck: trachea midline, no thyromegaly Respiratory: + respiratory distress Auscultation: + diminished lung sounds (Has been improving on both sides) and + crackles (Bilateral crackles) Cardiovascular: Rate/Rhythm: regular rate and regular rhythm Heart Sounds: no murmur Extremities: + edema (1+ edema bilaterally) Gastrointestinal (Abdomen): Inspection/Auscultation: normal bowel sounds; abdomen not distended Percussion/Palpation: abdomen soft Musculoskeletal: No acute arthritis in any joint Neurologic: Alert, awake and oriented. Remains nonverbal and is a status post tracheostomy. Lymphatic: no cervical or axillary lymphadenopathy Results & Data Results & Data ([facility]) Vital Signs (Past 12 Hours) Vital Signs Temp Pulse Pulse Resp BP BP Pulse Ox 01/13/21 12:40 36.7 C 148/95 H 01/13/21 12:00 113 H 91 01/13/21 11:00 104 H 93 01/13/21 10:00 103 H 85 L 01/13/21 09:00 95 H 95 01/13/21 08:00 102 H 01/13/21 07:46 37.0 C 94 H 20 146/75 H 91 01/13/21 07:44 90 146/75 H 92 01/13/21 04:00 37.1 C 98 H 22 163/88 H 94 Laboratory Results Short CBC 01/13/21 Range/Units 07:00 WBC 9.98 (4.8-10.8) K/uL Hgb 10.3 L (12.0-16.0) g/dL Hct 32.8 L (37-47) % Plt Count 306 (130-400) K/uL BMP 01/13/21 07:00 Sodium 142 Potassium 3.6 Chloride 109 H Carbon Dioxide 29 BUN 21 H Creatinine 0.54 L Glucose 114 H Calcium 9.1 Medications Administered Current Inpatient Medications Acetaminophen (Acetaminophen Susp 325 Mg/10.15 Ml Udc) 650 mg PO Q4H PRN PRN Reason: Pain or Fever Stop: 01/29/21 14:34 Last Admin: 01/11/21 07:48 Dose: 650 mg Documented by: Allopurinol (Allopurinol 100 Mg Tab) 100 mg PO DAILY SAVANNAH Stop: 01/28/21 08:59 Last Admin: 01/13/21 07:58 Dose: 100 mg Documented by: Aspirin (Aspirin 81 Mg Chew) 81 mg PO DAILY SAVANNAH Stop: 01/30/21 08:59 Last Admin: 01/13/21 07:59 Dose: 81 mg Documented by: Atorvastatin Calcium (Atorvastatin 20 Mg Tab) 20 mg PO QAM SAVANNAH Stop: 01/28/21 08:59 Last Admin: 01/13/21 07:58 Dose: 20 mg Documented by: Dextrose (Dextrose 50% 50 Ml Syringe) 25 - 50 ml IV UD PRN; Protocol PRN Reason: Hypoglycemia Protocol Stop: 01/27/21 21:34 Last Admin: 01/08/21 00:20 Dose: 50 ml Documented by: Enoxaparin Sodium (Enoxaparin 80 Mg/0.8 Ml Syr) 80 mg SQ Q12H SAVANNAH Stop: 02/06/21 20:59 Last Admin: 01/13/21 08:00 Dose: 80 mg Documented by: Famotidine (Famotidine 20 Mg Tab) 20 mg PO QAM SAVANNAH Stop: 01/30/21 11:44 Last Admin: 01/13/21 07:57 Dose: 20 mg Documented by: Glucagon (Glucagon For Inj 1 Mg Vial) 1 mg SQ UD PRN; Protocol PRN Reason: Hypoglycemia Protocol Stop: 01/27/21 21:34 Glucose (Glucose 10 Tabs/Tube) 4 - 8 tabs PO UD PRN; Protocol PRN Reason: Hypoglycemia Protocol Stop: 01/27/21 21:34 Glucose (Glucose 40% Gel 15 Gm Tube) 15 - 30 gm PO UD PRN; Protocol PRN Reason: Hypoglycemia Protocol Stop: 01/27/21 21:34 Guaifenesin (Guaifenesin Sugar Free 200 Mg/10 Ml Udc) 200 mg PO Q4H PRN PRN Reason: CONGESTION Stop: 02/11/21 12:29 Last Admin: 01/12/21 15:12 Dose: 200 mg Documented by: Heparin Sodium (Beef Lung) (Heparin 10 Unit/Ml 5 Ml Flush) 5 ml FLUSH PRN PRN PRN Reason: Flush Stop: 02/03/21 22:32 Last Admin: 01/09/21 07:56 Dose: 5 ml Documented by: Ceftaroline Fosamil 600 mg/ (Sodium Chloride) 270 mls @ 250 mls/hr IV Q8H SAVANNAH; Protocol Stop: 01/15/21 10:00 Last Infusion: 01/13/21 15:05 Dose: Infused Documented by: Insulin Aspart (Insulin Aspart 100 Units/Ml 3 Ml Pen) 0 units SC Q4 SAVANNAH; Protocol Stop: 02/07/21 15:59 Last Admin: 01/13/21 12:45 Dose: 8 units Documented by: Insulin Glargine (Insulin Glargine Solostar 100 Units/Ml 3 Ml Pen) 20 units SC QAM SAVANNAH Stop: 02/08/21 08:59 Last Admin: 01/13/21 10:51 Dose: 20 units Documented by: Lactulose (Lactulose Syrup 20 Gm/30 Ml Udc) 20 gm PO DAILY PRN PRN Reason: constipation Stop: 01/31/21 13:29 Levothyroxine Sodium (Levothyroxine Sodium 25 Mcg Tablet) 25 mcg PO DAILYBB [facility] Stop: 01/28/21 06:29 Last Admin: 01/13/21 05:51 Dose: 25 mcg Documented by: Miscellaneous (Carbohydrates For Hypoglycemia ) 15 - 30 gm PO UD PRN PRN Reason: Hypoglycemia Protocol Stop: 01/27/21 21:34 Miscellaneous Information (Pharmacy Glycemic Mgmt Consult) 1 ea N/A UD PRN PRN Reason: Consult Stop: 01/28/21 08:57 Multivitamins/Minerals (Multi Vit W/Minerals Liquid 15 Ml Udp) 15 ml NG QAM SAVANNAH Stop: 02/04/21 08:59 Last Admin: 01/13/21 07:56 Dose: 15 ml Documented by: Nutritional Formula (Peptamen Intense Vhp 1.0 Flip 1,000 Ml Bag) 1,000 ml OG UD SAVANNAH; Protocol Stop: 01/30/21 10:29 Last Admin: 01/13/21 07:55 Dose: 1,000 ml Documented by: Sterile Water (Tube Feeding Water Flush) 30 ml OG Q4H SAVANNAH Stop: 02/04/21 11:59 Last Admin: 01/13/21 12:34 Dose: 30 ml Documented by:
[2021-01-14] MEDS: ACETAMINOPHEN SUSP 325 MG/10.15 ML UDC PO PRN (00:32)
[2021-01-14] MEDS: guaiFENesin SUGAR FREE 200 MG/10 ML UDC PO PRN ×2 (00:32→08:37)
[2021-01-14] MEDS: INSULIN ASPART 100 UNITS/ML 3 ML PEN SC SCH ×5 (00:58→19:00)
[2021-01-14] MEDS: TUBE FEEDING WATER FLUSH OG SCH ×6 (00:59→20:59)
[2021-01-14] MEDS: CEFTAROLINE FOSAMIL ACETATE 600 MG in SODIUM CHLORIDE 0.9% 250 ML IV SCH ×3 (03:43→20:59)
[2021-01-14] MEDS: LEVOTHYROXINE SODIUM 25 MCG TABLET PO SCH (06:09)
--- NOTE | 2021-01-14 07:18 | Hospitalist Progress Note ---
Date of Service January 14, 2021 Assessment & Plan (1) Acute hypoxemic respiratory failure: Secondary to asthma exacerbation secondary to severe COVID-19 pneumonia, MRSA Pneumonia Initial CXR: Multifocal bilateral airspace opacities. This likely represents a viral pneumonia. Was on high flow O2 initially and failed to maintain saturation s/p mechanical intubation 12/30/20 [facility] Vent Day # 8 , status post tracheotomy on 01/07/2021 Repeat chest x-ray did not show any improvement of the bilateral multilobar pneumonia Status post bronchoscopy today with clearing of bronchial secretion Status post tracheotomy on 01/07/2021 LTAC placement denied Failed swallowing evaluation-we will continue NG tube feeding for now May require PEG tube placement down the line Remains stable with minimal improvement of general condition-she was transferred to [facility] telemetry unit We will continue NG tube feeding for now and the evaluation for swallowing on Saturday DVT in 2 right peroneal veins Started on Lovenox subcu twice daily Likely has superimposed bacterial pneumonia blood cultures: negative Sputum culture: MRSA Received Ceftriaxone IV x 2 days transition to Ceftaroline IV day #9=9 today White counts keep elevated and she remains febrile White count has been improving but he still has high temperature 37.8 Her white count remains elevated and still febrile Sputum has been sent for reculture and in the meantime we will continue intravenous Ceftaroline for a total of 14 days No more fever and white count has been improving Continue current antibiotic to finish a total course of 14 days Ceftraroline will be discontinued COVID-19 pneumonia Continue Decadron Day [address] Duvall's recommendation, basing on NIH guideline Convalescent plasma given Respiratory status has not been improving As above-finished the course of antiviral, convalescent plasma and steroid She can be taken off isolation from Covid 19 as per infectious disease UTI E coli Ceftriaxone IV x 2 days transitioned to Ceftaroline IV day #14 Hypertension Monitor ARF secondary to illness Resolved Diarrhea secondary to illness Resolved hyperlipidemia on statin Rx DM2 insulin requiring, suboptimal control asked off recent outpatient hemoglobin A1c of 12.28 November 2020 Glycemic pharmacy consult Leukocytosis-Resolved DVT prophylaxis. Heparin Subcu Lovenox SC for DVT Prophylaxis Full code Overall prognosis remains poor Case was Discussed with the patient's daughter in detail on 01/05/2021 Conference call with her daughter and the patient was done Gradual improvement of her condition-We will need placement on discharge Labs checked ROS-Trached and on O2 Physical Exam Gen-Awake Alert, NAD, Afebrile Head-NCAT, EOMI, PERRLA, Anicteric Sclera, No Posterior Pharyngeal Erythema Neck-Supple, Trach, No JVD, No Thyromegaly, No Masses, No LAD, No Bruits Lungs-Clear to Auscultation Bilaterally, No Rales, No Rhonchi, No Wheezing, No Crepitus Chest-No S4, +S1, +S2, No S3, No Murmurs, No Rubs, No Gallops, No Ectopy Abdomen-Soft, Bowel Sounds Present, Non Tender, Non Distended, No Hepatomegaly, No Splenomegaly, No Palpable Masses, No Rebound, No Rigidity, No Guarding Musculoskeletal-Full Range of Motion Bilaterally, No CVAT Extremities-No Cyanosis, No Clubbing, No Edema Nuero-Cranial Nerves II-XII grossly intact, Motor WNL, DTRs WNL, Strength WNL, Non Focal Psych-Pleasant Admission and Anticipated Discharge Date Admission Date: December 28, 2020 Subjective 01/04/2021 The patient was seen and examined in telemetry unit in ICU bed She remains intubated and sedated Plan for extubation today failed 01/05/2021 The patient was seen and examined in telemetry unit as ICU patient She remains ventilated and sedated 01/06/2021 The patient was seen and examined in telemetry unit as ICU patient She remains intubated and sedated She is getting prone therapy now 01/07/2021 The patient was seen and examined in telemetry unit with ICU status She is a status post tracheotomy and remains stable Trying to wean off from sedation 12/2020 The patient was seen and examined in telemetry unit with ICU status She has been off pressors and sedation Has been feeling much better 01/09/2021 The patient was seen and examined in telemetry unit with ICU status She was noted to be very distressed early this morning and requiring intravenous Precedex Remains stable and sedated during my examination 01/10/2021 The patient was seen and examined in telemetry unit with ICU status She is listed status post tracheostomy and has been improving gradually Responding to commands but not talking Remains generally weak and lethargic 01/11/2021 The patient was seen and examined in telemetry unit He has been doing much better today and is out of bed when a chair He is alert and awake still noncommunicative likely due to prolonged intubation Failed swallowing evaluation today 01/12/2021 The patient was seen and examined in telemetry unit She remains stable and improving very gradually Complaints of shortness of breath denies any significant pain No fever and/or chills Noted to have tachycardia with ambulation 01/13/2021 The patient was seen and examined in the telemetry unit She remains stable and improving gradually Denies any significant symptoms except weakness Results & Data Results & Data ([facility]) Vital Signs (Past 12 Hours) Vital Signs Temp Pulse Resp BP Pulse Ox 01/14/21 03:27 36.9 C 96 H 22 123/75 94 01/13/21 23:50 110 H 14 91 01/13/21 23:49 37 C 110 H 20 145/79 H 94 01/13/21 20:17 37.0 C 111 H 30 H 166/94 H 93
[2021-01-14] MEDS: allopurinoL 100 MG TAB PO SCH (08:32)
[2021-01-14] MEDS: FAMOTIDINE 20 MG TAB PO SCH (08:32)
[2021-01-14] MEDS: ATORVASTATIN 20 MG TAB PO SCH (08:32)
[2021-01-14] MEDS: ASPIRIN 81 MG CHEW PO SCH (08:32)
[2021-01-14] MEDS: ENOXAPARIN 80 MG/0.8 ML SYR SQ SCH ×2 (08:33→21:00)
[2021-01-14] MEDS: MULTI VIT W/MINERALS LIQUID 15 ML UDP NG SCH (08:33)
[2021-01-14] MEDS: INSULIN GLARGINE SOLOSTAR 100 UNITS/ML 3 ML PEN SC SCH (09:30)
--- NOTE | 2021-01-14 10:19 | Pharmacy Report ---
Pharmacy Glycemic Short Note 2 - Date of Service January 14, 2021 - Glycemic Short BSG Results (Last 24 hours): 01/13/21 01/13/21 01/13/21 11:14 16:10 19:57 POC Glucose 146 H 153 H 143 H 01/14/21 01/14/21 01/14/21 00:31 04:03 08:02 POC Glucose 137 H 183 H 131 H OUTPATIENT ANTIDIABETIC REGIMEN: * Levemir 24 units daily * Metformin * Empagliflozin * Dulaglutide * HbA1c 12.1 % 12/30/20 ASSESSMENT: 01/14: * Pt has received 67 units of insulin over the past 24hrs * 20 units of basal with Lantus * 47 units of bolus with NovoLog * BSGs [phone] mg/dl * All BSGs well controlled with current regimen. Pt is receiving basal insulin with Lantus + NovoLog Q4hrs to cover CHO in continuous tube feedings with peptamen intense VHP @ 55ml/hr. No changes needed today 01/13 * BSGs [phone] mg/dL yesterday with 71 units of insulin * Blood sugars seem to be trending downward, will slightly loosen parameters today * Considering switch to q6H checks * Continue on TF, next swallow eval will be Saturday. Patient will not be going to [facility] as not accepted by insurance 01/12 * BSGs have been stable over the past 48 hrs, yesterday [phone] mg/dL with 81 units of insulin * Today 146-171-160 mg/dL * Failed swallow Eval, continuing with tube feeds for now, possible PEG if unable to pass swallow * Will continue current parameters PLAN FOR INPATIENT GLYCEMIC CONTROL: no changes needed today * Hold outpatient oral diabetes medications * Basal insulin * Lantus 20 units SQ daily * Bolus insulin * NovoLog per scale q 6 hrs * Goal Range: Low 110 mg/dL - High 140 mg/dL * Correction Factor: 15 mg/dL/unit * Nutritional / Prandial insulin per carb ratio of 1 unit per 3 grams CHO consumed * Instructions added to cover tube feeds (Peptamen Intense VHP). Pt is currently receiving ~6-8 units SQ Q4hrs of NovoLog to cover tube feedings
[2021-01-15] MEDS: INSULIN ASPART 100 UNITS/ML 3 ML PEN SC SCH ×4 (00:21→18:46)
[2021-01-15] MEDS: TUBE FEEDING WATER FLUSH OG SCH ×6 (00:31→20:37)
[2021-01-15] MEDS: CEFTAROLINE FOSAMIL ACETATE 600 MG in SODIUM CHLORIDE 0.9% 250 ML IV SCH ×3 (03:27→20:37)
[2021-01-15] MEDS: PEPTAMEN INTENSE VHP 1.0 CAL 1,000 ML BAG OG SCH (04:00)
[2021-01-15] MEDS: LEVOTHYROXINE SODIUM 25 MCG TABLET PO SCH (06:26)
--- NOTE | 2021-01-15 07:13 | Hospitalist Progress Note ---
Date of Service January 15, 2021 Assessment & Plan (1) Acute hypoxemic respiratory failure: Secondary to asthma exacerbation secondary to severe COVID-19 pneumonia, MRSA Pneumonia Initial CXR: Multifocal bilateral airspace opacities. This likely represents a viral pneumonia. Was on high flow O2 initially and failed to maintain saturation s/p mechanical intubation 12/30/20 [facility] Vent Day # 8 , status post tracheotomy on 01/07/2021 Repeat chest x-ray did not show any improvement of the bilateral multilobar pneumonia Status post bronchoscopy today with clearing of bronchial secretion Status post tracheotomy on 01/07/2021 LTAC placement denied Failed swallowing evaluation-we will continue NG tube feeding for now May require PEG tube placement down the line Remains stable with minimal improvement of general condition-she was transferred to [facility] telemetry unit We will continue NG tube feeding for now and the evaluation for swallowing on Saturday DVT in 2 right peroneal veins Started on Lovenox subcu twice daily Likely has superimposed bacterial pneumonia blood cultures: negative Sputum culture: MRSA Received Ceftriaxone IV x 2 days transitioned to Ceftaroline IV Stop 01/19 White counts keep elevated and she remains febrile White count has been improving but he still has high temperature 37.8 Her white count remains elevated and still febrile Sputum has been sent for reculture and in the meantime we will continue intravenous Ceftaroline for a total of 14 days No more fever and white count has been improving Continue current antibiotic to finish a total course of 14 days Ceftraroline will be discontinued COVID-19 pneumonia Continue Decadron Day [address] Duvall's recommendation, basing on NIH guideline Convalescent plasma given Respiratory status has not been improving As above-finished the course of antiviral, convalescent plasma and steroid She can be taken off isolation from Covid 19 as per infectious disease UTI E coli Ceftriaxone IV x 2 days transitioned to Ceftaroline IV day #14, stop date January 19 Hypertension Monitor ARF secondary to illness Resolved Diarrhea secondary to illness Resolved hyperlipidemia on statin Rx DM2 insulin requiring, suboptimal control asked off recent outpatient hemoglobin A1c of 12.28 November 2020 Glycemic pharmacy consult Leukocytosis-Resolved DVT prophylaxis. Heparin Subcu Lovenox SC for DVT Prophylaxis Full code Overall prognosis remains poor Case was Discussed with the patient's daughter in detail on 01/05/2021 Conference call with her daughter and the patient was done Gradual improvement of her condition-We will need placement on discharge Labs checked ROS-Trached and on O2, feeling a little better Physical Exam Gen-Awake Alert, NAD, Afebrile Head-NCAT, EOMI, PERRLA, Anicteric Sclera, Bruising under eyes Neck-Supple, Trach, No JVD, No Thyromegaly, No Masses, No LAD, No Bruits Lungs-Clear to Auscultation Bilaterally, No Rales, No Rhonchi, No Wheezing, No Crepitus Chest-No S4, +S1, +S2, No S3, No Murmurs, No Rubs, No Gallops, No Ectopy Abdomen-Soft, Bowel Sounds Present, Non Tender, Non Distended, No Hepatomegaly, No Splenomegaly, No Palpable Masses, No Rebound, No Rigidity, No Guarding Musculoskeletal-Full Range of Motion Bilaterally, No CVAT Extremities-No Cyanosis, No Clubbing, No Edema Nuero-Cranial Nerves II-XII grossly intact, Motor WNL, DTRs WNL, Strength WNL, Non Focal Psych-Pleasant Admission and Anticipated Discharge Date Admission Date: December 28, 2020 Results & Data Results & Data ([facility]) Vital Signs (Past 12 Hours) Vital Signs Temp Pulse Resp BP BP Pulse Ox 01/15/21 03:57 37.3 C 102 H 22 130/78 90 01/14/21 23:12 119 H 18 90 01/14/21 23:01 37.3 C 102 H 24 149/76 H 93
[2021-01-15 07:57] LABS: Hematocrit (blood only) 33.9 % (37-47); Hemoglobin 10.4 g/dL (12.0-16.0); Mean Corpuscular Hemoglobin 25.5 pg (25-34); Mean Corpuscular Hgb Conc 30.7 g/dL (32-36); Mean Corpuscular Volume 83.1 fL (80-100); Mean Platelet Volume 10.7 fL (7.4-10.4); Platelet Count 256 K/uL (130-400); RDW Coefficient of Variation 14.2 % (11.5-14.5); RDW Standard Deviation 42.5 fL (36.4-46.3); Red Blood Count 4.08 M/uL (4.2-5.4); White Blood Count 6.96 K/uL (4.8-10.8)
[2021-01-15 08:31] LABS: BUN Creatinine Ratio 33.6 (10-20); Calcium 9.2 mg/dl (8.5-10.1); Creatinine Clr Calc Pharmacy 122.2 ml/min; Est GFR (Non-African American) 106.1; Potassium 3.6 mmol/L (3.5-5.1)
[2021-01-15] MEDS: FAMOTIDINE 20 MG TAB PO SCH (09:08)
[2021-01-15] MEDS: allopurinoL 100 MG TAB PO SCH (09:09)
[2021-01-15] MEDS: MULTI VIT W/MINERALS LIQUID 15 ML UDP NG SCH (09:13)
[2021-01-15] MEDS: ASPIRIN 81 MG CHEW PO SCH (09:13)
[2021-01-15] MEDS: ENOXAPARIN 80 MG/0.8 ML SYR SQ SCH ×2 (09:13→20:37)
[2021-01-15] MEDS: ATORVASTATIN 20 MG TAB PO SCH (09:14)
[2021-01-15] MEDS: INSULIN GLARGINE SOLOSTAR 100 UNITS/ML 3 ML PEN SC SCH (09:14)
--- NOTE | 2021-01-15 11:55 | Pulmonology Progress Note ---
Date of Service January 15, 2021 Assessment & Plan (1) Pneumonia due to COVID-19 virus: (2) Acute hypoxemic respiratory failure: --TDRF Secondary to COVID-19 multilobar pneumonia Tracheostomy placed 01/07/2021 S/p dexamethasone x10 days, completed course on 01/07 --Acute hypoxic respiratory failure Likely secondary to multilobar pneumonia from COVID-19 as well as MRSA Continue with O2 supplementation to keep oxygen saturation between 88-92% --MRSA pneumonia On cefazolin for total of 14 days --History of asthma Continue with nebulized treatment --Right lower extremity DVT On therapeutic Lovenox Plan: Sutures from the trach removed today. We will change the trach in the next couple of days. Pulmonary will follow peripherally. Call with any questions. Please note the above document was generated using voice recognition software. It may contain grammatical, syntax or spelling errors.Any formal questions or concerns about the content, text or information contained within the body of this dictation should be directly addressed to the provider for clarification. (3) MRSA pneumonia: (4) Asthma: Admission and Anticipated Discharge Date Admission Date: December 28, 2020 Subjective Patient seen and examined at bedside. No acute distress, no adverse events overnight. She is on trach collar. Doing fairly well. Still complaining of bringing up a lot of phlegm. Denies any chest pain, no headache, no nausea, no vomiting. History is getting feeding through the NGT. Positive bowel movements. Review of Systems Review of Systems: All systems reviewed & are unremarkable except as noted in Subjective Physical Exam Physical Exam: Constitutional: No acute distress HEENT: EOMI, PERRLA, positive trach, non tendor Respiratory system: Decreased air entry bilaterally, positive crackles bilaterally, no wheeze, no rhonchi CVS: S1-S2 positive, no murmurs or gallops Abdomen: Soft, nontender, nondistended, positive bowel sounds x4 Extremities: +2 pulses bilaterally radialis/ dorsalis pedis, no cyanosis, no edema Neuro: Awake alert oriented Psych: Normal mood and affect G/U: No Restrepo Skin: no rashes, warm and dry Lymphatic: no cervical or axillary lymphadenopathy Results & Data Results & Data ([facility]) Vital Signs (Past 12 Hours) Vital Signs Temp Pulse Resp BP Pulse Ox 01/15/21 11:43 37.7 C H 110 H 22 133/82 01/15/21 08:29 37.5 C 110 H 22 137/70 96 01/15/21 08:00 37.3 C 85 18 127/68 95 01/15/21 03:57 37.3 C 102 H 22 130/78 90 01/15/21 07:23 01/15/21 07:23 PG Care Time/CCT Total # of Minutes Spent Total Time Spent with Patient: Total time spent is greater than 50% in c oordination of care (as documented) at patient's floor/unit and/or counseling patient: Coding Level of Care Code 51594 Subseq Hosp Care Lvl 2 Diagnoses Pneumonia due to COVID-19 virus U07.1; J12.82 Acute hypoxemic respiratory failure J96.01 MRSA pneumonia J15.212 Asthma J45.909
[2021-01-15] MEDS: ACETAMINOPHEN SUSP 325 MG/10.15 ML UDC PO PRN (14:45)
[2021-01-16] MEDS: PEPTAMEN INTENSE VHP 1.0 CAL 1,000 ML BAG OG SCH
[2021-01-16] MEDS: INSULIN ASPART 100 UNITS/ML 3 ML PEN SC SCH ×4 (00:13→18:32)
[2021-01-16] MEDS: TUBE FEEDING WATER FLUSH OG SCH ×6 (00:13→20:12)
[2021-01-16] MEDS: CEFTAROLINE FOSAMIL ACETATE 600 MG in SODIUM CHLORIDE 0.9% 250 ML IV SCH ×3 (03:49→20:11)
[2021-01-16] MEDS: LEVOTHYROXINE SODIUM 25 MCG TABLET PO SCH (06:29)
[2021-01-16 08:07] LABS: Basophils # (auto) 0.02 K/uL (0-0.2); Basophils % (auto) 0.3 %; Eosinophils # (auto) 0.37 K/uL (0-0.5); Eosinophils % (auto) 4.9 %; Hematocrit (blood only) 31.7 % (37-47); Hemoglobin 9.6 g/dL (12.0-16.0); Immature Granulocytes # (auto) 0.01 K/uL (0.00-0.02); Immature Granulocytes % (auto) 0.1 %; Lymphocytes # (auto) 0.79 K/uL (1.2-3.4); Lymphocytes % (auto) 10.4 %; Mean Corpuscular Hemoglobin 25.2 pg (25-34); Mean Corpuscular Hgb Conc 30.3 g/dL (32-36); Mean Corpuscular Volume 83.2 fL (80-100); Mean Platelet Volume 10.4 fL (7.4-10.4); Monocytes # (auto) 0.69 K/uL (0.11-0.59); Monocytes % (auto) 9.1 %; Neutrophils # (auto) 5.72 K/uL (1.4-6.5); Neutrophils % (auto) 75.2 %; Platelet Count 247 K/uL (130-400); RDW Coefficient of Variation 14.4 % (11.5-14.5); Red Blood Count 3.81 M/uL (4.2-5.4)
[2021-01-16 08:48] LABS: Albumin Level 2.1 gm/dl (3.4-5.0); BUN Creatinine Ratio 32.7 (10-20); Calcium 8.9 mg/dl (8.5-10.1); Creatinine Clr Calc Pharmacy 132.2 ml/min; Est GFR (African American) 126.2; Est GFR (Non-African American) 108.9; Potassium 3.6 mmol/L (3.5-5.1)
[2021-01-16] MEDS: ASPIRIN 81 MG CHEW PO SCH (08:49)
[2021-01-16] MEDS: MULTI VIT W/MINERALS LIQUID 15 ML UDP NG SCH (08:50)
[2021-01-16 08:51] LABS: Albumin Globulin Ratio 0.5 (0.9-2); Bilirubin,Total 0.3 mg/dl (0.2-1); Globulin 4.3 gm/dl (2.5-4.0); Total Protein 6.4 gm/dl (6.4-8.2)
[2021-01-16] MEDS: FAMOTIDINE 20 MG TAB PO SCH (08:51)
[2021-01-16] MEDS: allopurinoL 100 MG TAB PO SCH (08:52)
[2021-01-16] MEDS: ENOXAPARIN 80 MG/0.8 ML SYR SQ SCH ×2 (08:52→20:11)
[2021-01-16] MEDS: ATORVASTATIN 20 MG TAB PO SCH (08:53)
[2021-01-16] MEDS: INSULIN GLARGINE SOLOSTAR 100 UNITS/ML 3 ML PEN SC SCH (09:34)
--- NOTE | 2021-01-16 12:01 | Hospitalist Progress Note ---
Date of Service January 16, 2021 Assessment & Plan (1) Acute hypoxemic respiratory failure: Secondary to asthma exacerbation secondary to severe COVID-19 pneumonia, MRSA Pneumonia Initial CXR: Multifocal bilateral airspace opacities. This likely represents a viral pneumonia. Was on high flow O2 initially and failed to maintain saturation s/p mechanical intubation 12/30/20 [facility] Vent Day # 8 , status post tracheotomy on 01/07/2021 Repeat chest x-ray did not show any improvement of the bilateral multilobar pneumonia Status post bronchoscopy with clearing of bronchial secretion Status post tracheotomy on 01/07/2021 LTAC placement denied Remains stable We will continue NG tube feeding for now and the evaluation for swallowing Today DVT in 2 right peroneal veins Started on Lovenox subcu twice daily Superimposed bacterial pneumonia blood cultures: negative Sputum culture: MRSA Received Ceftriaxone IV x 2 days transitioned to Ceftaroline IV Stop 01/19 White counts keep elevated and she remains febrile White count has been improving but he still has high temperature 37.8 Her white count remains elevated and still febrile Sputum has been sent for reculture and in the meantime we will continue intravenous Ceftaroline for a total of 14 days No more fever and white count has been improving Continue current antibiotic to finish a total course of 14 days Ceftraroline will be discontinued COVID-19 pneumonia Continue Decadron Day [address] Duvall's recommendation, basing on NIH guideline Convalescent plasma given As above-finished the course of antiviral, convalescent plasma and steroid She can be taken off isolation from Covid 19 as per infectious disease UTI E coli Ceftriaxone IV x 2 days transitioned to Ceftaroline IV day #14, stop date January 19 Hypertension Monitor ARF secondary to illness Resolved Diarrhea secondary to illness Resolved hyperlipidemia on statin Rx DM2 insulin requiring, suboptimal control asked off recent outpatient hemoglobin A1c of 12.28 November 2020 Glycemic pharmacy consult Leukocytosis-Resolved DVT prophylaxis. Heparin Subcu Lovenox SC for DVT Prophylaxis Full code Overall prognosis improving Case was Discussed with the patient's daughter in detail on 01/05/2021 Conference call with her daughter and the patient was done Gradual improvement of her condition-We will need placement on discharge Labs checked ROS-No Headache, No Visual Changes, No Nausea, No Vomiting, No Fever, No Chills, No Neck Pain or Stiffness, No Chest Pain, No Palpitations, No SOB, No WILLIAM, No Cough, No Sputum, No Wheezing, No Abdominal Pain, No Diarrhea, No Hematemesis, No Hemoptysis, No Unexpected Weight Loss, No Flank pain, No Melena, No Hematochezia, No Frequency, No Urgency, No Burning, No Hematuria, No Rashes, No Diaphoresis. Appetite is Normal Physical Exam Gen-Awake Alert, NAD, Afebrile Head-NCAT, EOMI, PERRLA, Anicteric Sclera, Bruising under eyes Neck-Supple, Trach, No JVD, No Thyromegaly, No Masses, No LAD, No Bruits Lungs-Clear to Auscultation Bilaterally, No Rales, No Rhonchi, No Wheezing, No Crepitus Chest-No S4, +S1, +S2, No S3, No Murmurs, No Rubs, No Gallops, No Ectopy Abdomen-Soft, Bowel Sounds Present, Non Tender, Non Distended, No Hepatomegaly, No Splenomegaly, No Palpable Masses, No Rebound, No Rigidity, No Guarding Musculoskeletal-Full Range of Motion Bilaterally, No CVAT Extremities-No Cyanosis, No Clubbing, No Edema Nuero-Cranial Nerves II-XII grossly intact, Motor WNL, DTRs WNL, Strength WNL, Non Focal Psych-Pleasant Admission and Anticipated Discharge Date Admission Date: December 28, 2020 Results & Data Results & Data ([facility]) Vital Signs (Past 12 Hours) Vital Signs Temp Pulse Pulse Resp BP Pulse Ox 01/16/21 11:42 37.0 C 98 H 20 127/66 96 01/16/21 07:39 37.1 C 104 H 20 135/73 93 01/16/21 07:30 120 H 01/16/21 05:06 90 01/16/21 03:52 37.2 C 95 H 18 140/71 93 01/16/21 00:24 36.8 C 105 H 20 136/73 93
[2021-01-16] MEDS: ACETAMINOPHEN SUSP 325 MG/10.15 ML UDC PO PRN (12:17)
--- NOTE | 2021-01-16 14:30 | Fluoroscopy Report ---
FL video swallow CLINICAL HISTORY: 55 years-old Female with ready for oral intake s/p trach. Status post placement of a tracheostomy cannula. TECHNIQUE: Video fluoroscopic evaluation of swallowing was performed in the AP and lateral projection s by the speech pathology staff. The patient is fed nectar-thick and thin liquid barium, a barium coa myke wafer, and barium pudding. FLUOROSCOPY TIME: 2.2 minutes. COMPARISON STUDY: Chest radiograph 01/12/2021 FINDINGS: Tracheostomy cannula overlies the midline. An enteric tube is present. Silent aspiration wi th thin liquid barium and nectar thick consistency. Penetration and aspiration also noted with honey thick consistency. Cracker with paste consistency demonstrated vallecular retention and aspiration wi th liquid wash. IMPRESSION: 1. Multiple consistency aspiration as above. 2. Please see the speech pathologist report for detailed findings and recommendations. ACT 112: Negative or not required by law. Electronically signed by: Abdulkadir Espinoza M.D. 01/16/2021 2:29 PM
[2021-01-17] MEDS: INSULIN ASPART 100 UNITS/ML 3 ML PEN SC SCH ×5 (00:53→23:41)
[2021-01-17] MEDS: TUBE FEEDING WATER FLUSH OG SCH ×7 (00:54→23:31)
[2021-01-17] MEDS: CEFTAROLINE FOSAMIL ACETATE 600 MG in SODIUM CHLORIDE 0.9% 250 ML IV SCH ×3 (04:25→18:21)
[2021-01-17] MEDS: LEVOTHYROXINE SODIUM 25 MCG TABLET PO SCH (05:54)
[2021-01-17 07:50] LABS: Hematocrit (blood only) 30.3 % (37-47); Hemoglobin 9.3 g/dL (12.0-16.0); Mean Corpuscular Hemoglobin 25.5 pg (25-34); Mean Corpuscular Hgb Conc 30.7 g/dL (32-36); Mean Platelet Volume 10.3 fL (7.4-10.4); Nucleated RBC # (auto) 0.02 K/uL (0-0); Nucleated RBC % (auto) 0.3 %; Platelet Count 239 K/uL (130-400); RDW Coefficient of Variation 14.6 % (11.5-14.5); RDW Standard Deviation 43.9 fL (36.4-46.3); Red Blood Count 3.65 M/uL (4.2-5.4); White Blood Count 6.24 K/uL (4.8-10.8)
[2021-01-17] MEDS: allopurinoL 100 MG TAB PO SCH (08:09)
[2021-01-17] MEDS: FAMOTIDINE 20 MG TAB PO SCH (08:09)
[2021-01-17] MEDS: ATORVASTATIN 20 MG TAB PO SCH (08:09)
[2021-01-17] MEDS: MULTI VIT W/MINERALS LIQUID 15 ML UDP NG SCH (08:10)
[2021-01-17] MEDS: ENOXAPARIN 80 MG/0.8 ML SYR SQ SCH ×2 (08:10→21:46)
[2021-01-17] MEDS: ASPIRIN 81 MG CHEW PO SCH (08:11)
[2021-01-17] MEDS: ACETAMINOPHEN SUSP 325 MG/10.15 ML UDC PO PRN (08:14)
[2021-01-17 08:27] LABS: BUN Creatinine Ratio 29.5 (10-20); Calcium 9.2 mg/dl (8.5-10.1); Creatinine Clr Calc Pharmacy 109.8 ml/min; Est GFR (African American) 118.8; Est GFR (Non-African American) 102.5
[2021-01-17] MEDS ORDERED: INSULIN GLARGINE SOLOSTAR 100 UNITS/ML 3 ML PEN SC SCH (09:00)
--- NOTE | 2021-01-17 10:29 | Gastrointestinal Consultation ---
Date of Consultation January 17, 2021 Assessment & Plan (1) Dysphagia: Will plan for EGD with PEG insertion tomorrow. PEG tube described in detail. Pt would like to go forward with the procedure. Please turn off all PEG tube feedings around 10PM tonight. I believe that Ceftaroline Fosamil that she is already on will be adequate for coverage of skin pathogens instead of Ancef prior to PEG but will verify with pharmacy. Present on Admission?: Yes Supervising Physician Co-Signing Physician Notes Late ntry: Patient was seen and examined on 01/17 with FAROOQ Dow whose note reflects our findings and plan. Prolonged hospitalization with COVID and pneumonia. Required trach. Now unable to swallow. PEG planned for Wed. History of Present Illness Reason for Consultation: PEG Requesting Physician: Dr. Proctor Attending Physician: Benja Proctor, DO History of Present Illness Ms. Shalini Byers is a 55 yr old female pt of Dr. Carballo admitted on 12/28/20 for respiratory failure secondary to COVID, now MRSA pneumonia who has a trach and is unable to swallow. We have been asked to place a PEG tube for nutrition. The pt tells me that she wants to have the NG feeding tube removed, that she is OK with having a PEG placed. She has never had any abd surgeries and has not previously undergone EGD. 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 Allergies Allergy/AdvReac Type Severity Reaction Status Date / Time lisinopril Allergy Unknown Unknown Verified 12/28/20 18:37 meperidine Allergy Unknown Hives Verified 12/28/20 18:36 Penicillins Allergy Unknown Could not Verified 12/28/20 18:37 use arm after shot Home Medications Medication Instructions Recorded Confirmed Type albuterol sulfate 2 puff INHALATION .Q4-6HRS PRN 12/28/20 12/28/20 History albuterol sulfate 2.5 mg INHALATION Q4H PRN 12/28/20 12/28/20 History allopurinol 100 mg PO DAILY 12/28/20 12/28/20 History aspirin 81 mg PO DAILY 12/28/20 12/28/20 History atorvastatin 20 mg PO QAM 12/28/20 12/28/20 History dulaglutide [Trulicity] 0.75 mg SUBCUT WK 12/28/20 12/28/20 History empagliflozin [Jardiance] 25 mg PO DAILY 12/28/20 12/28/20 History fenofibrate micronized 200 mg PO DAILY 12/28/20 12/28/20 History fluticasone propionate [Flovent 2 puff INHALATION BID 12/28/20 12/28/20 History HFA] insulin detemir U-100 [Levemir 24 unit SUBCUT DAILY 12/28/20 12/28/20 History FlexTouch U-100 Insuln] levothyroxine 25 mcg PO QAM 12/28/20 12/28/20 History metformin 1,000 mg PO BIDM 12/28/20 12/28/20 History montelukast 10 mg PO DAILY 12/28/20 12/28/20 History triamcinolone acetonide 1 applic TOPICAL BID 12/28/20 12/28/20 History Patient History Medical History (Updated 01/17/21 @ 15:13 by Jorge Quiroga MD) Tracheostomy care Social History Smoking Status: Never smoker Hx Alcohol Use: No Hx Substance Use: No Preferred Language: Sinhala Communication Ability: Effective Control Analyst Required: No Beliefs That Will Affect Care: None Current Living Situation: Spouse Other Information That Helps Us Care for You: No Feels Safe at Home: Yes Safety Concerns: Feels Safe At This Time Assistive Devices: Oxygen - Continuous Review of Systems Review of Systems: ROS: Gen: + weakness and weight loss related to COVID; No recent fevers Eyes: No eye redness, or pain, no recent vision changes Resp: Denies any current SOB or cough O2 via trach collar at 10L/min Cardio: No palpitations/irregular beats, no chest pain GI: No abdominal pain, no nausea/vomiting : Denies pain on urination Skin: No jaundice, itching or new rashes Physical Exam Constitutional: WD/WN, vitals as above + ill appearing; not edematous Eyes: PERRL, conjunctivae normal, anicteric sclerae ENMT: external ear and nose normal, oropharynx normal Neck: trachea midline, no thyromegaly trach in place Respiratory: normal respiratory effort; no respiratory distress, no labored breathing and no retractions mild scattered wheezes and crackles Cardiovascular: RRR, no murmur, no edema Gastrointestinal (Abdomen): normal bowel sounds, soft, nontender, no hepatosplenomegaly Musculoskeletal: no cyanosis or clubbing, extremities motor strength 5/5 Skin: normal turgor and + rash (mild redness around the trach collar, no increased warmth); no ulcers and no jaundice Neurologic: PERRL, EOMI, accommodation nl, no face palsy, no dysarthria Psychiatric: A+Ox3, euthymic affect Lymphatic: no cervical or axillary lymphadenopathy Results & Data ([facility]) Vital Signs (Past 12 Hours) Vital Signs Temp Pulse Pulse Resp BP Pulse Ox 01/17/21 07:39 37 C 103 H 18 120/77 98 01/17/21 07:12 110 H 01/17/21 04:00 37.4 C 114 H 20 135/75 93 01/17/21 02:50 107 H 01/17/21 00:00 37.3 C 100 H 20 126/70 Laboratory Results WBC 6, Hb 9, Hct 30, plats 239, Na 142, K 5.0, BUN 18, Cr 0.59, Glucose 201 Diagnostic Findings Video swallow 01/16/21: Multiple consistency aspiration CXR 01/12/21: Multifocal airspace opacities consistent with multifocal pneumonia, similar to the preceding study.
--- NOTE | 2021-01-17 10:53 | Pharmacy Report ---
Pharmacy Glycemic Short Note 2 - Date of Service January 17, 2021 - Glycemic Short BSG Results (Last 24 hours): 01/16/21 01/16/21 01/17/21 11:39 18:29 00:40 Glucose POC Glucose 131 H 152 H 181 H 01/17/21 01/17/21 05:56 07:19 Glucose 201 H POC Glucose 215 H OUTPATIENT ANTIDIABETIC REGIMEN: * Levemir 24 units daily * Metformin * Empagliflozin * Dulaglutide * HbA1c 12.1 % 12/30/20 ASSESSMENT: 01/17: * BSGs acceptable over last 24 hrs * BSGs have been trending slightly higher with the last 2 being 180-215 * 64 units of insulin administered over last 24 hrs while receiving tube feeds at goal. Current regimen appears to be prandial heavy. Will up titrate basal dose to help bring BSGs down to goal PLAN FOR INPATIENT GLYCEMIC CONTROL: no changes needed today * Hold outpatient oral diabetes medications * Basal insulin - increase * Lantus 25 units SQ daily * Bolus insulin - no change * NovoLog per scale q 6 hrs * Goal Range: Low 110 mg/dL - High 140 mg/dL * Correction Factor: 15 mg/dL/unit * Nutritional / Prandial insulin per carb ratio of 1 unit per 3 grams CHO c onsumed
--- NOTE | 2021-01-17 11:37 | Hospitalist Progress Note ---
Date of Service January 17, 2021 Assessment & Plan (1) Acute hypoxemic respiratory failure: Secondary to asthma exacerbation secondary to severe COVID-19 pneumonia, MRSA Pneumonia Initial CXR: Multifocal bilateral airspace opacities. This likely represents a viral pneumonia. Was on high flow O2 initially and failed to maintain saturation s/p mechanical intubation 12/30/20 [facility] Vent Day # 8 , status post tracheotomy on 01/07/2021 Repeat chest x-ray did not show any improvement of the bilateral multilobar pneumonia Status post bronchoscopy with clearing of bronchial secretion Status post tracheotomy on 01/07/2021 LTAC placement denied Remains stable We will continue NG tube feeding for now and the evaluation for swallowing Today DVT in 2 right peroneal veins Started on Lovenox subcu twice daily Superimposed bacterial pneumonia blood cultures: negative Sputum culture: MRSA Received Ceftriaxone IV x 2 days transitioned to Ceftaroline IV Stop 01/19 White counts keep elevated and she remains febrile White count has been improving but he still has high temperature 37.8 Her white count remains elevated and still febrile Sputum has been sent for reculture and in the meantime we will continue intravenous Ceftaroline for a total of 14 days No more fever and white count has been improving Continue current antibiotic to finish a total course of 14 days Ceftraroline will be discontinued COVID-19 pneumonia Continue Decadron Day [address] Duvall's recommendation, basing on NIH guideline Convalescent plasma given As above-finished the course of antiviral, convalescent plasma and steroid She can be taken off isolation from Covid 19 as per infectious disease UTI E coli Ceftriaxone IV x 2 days transitioned to Ceftaroline IV day #14, stop date January 19 Hypertension Monitor ARF secondary to illness Resolved Diarrhea secondary to illness Resolved hyperlipidemia on statin Rx DM2 insulin requiring, suboptimal control asked off recent outpatient hemoglobin A1c of 12.28 November 2020 Glycemic pharmacy consult Leukocytosis-Resolved DVT prophylaxis. Heparin Subcu Lovenox SC for DVT Prophylaxis Full code Overall prognosis improving Case was Discussed with the patient's daughter in detail on 01/05/2021 Conference call with her daughter and the patient was done Gradual improvement of her condition-We will need placement on discharge Failed Swallow eval, PEG ordered, ENT eval for new trach Labs checked ROS-No Headache, No Visual Changes, No Nausea, No Vomiting, No Fever, No Chills, No Neck Pain or Stiffness, No Chest Pain, No Palpitations, No SOB, No WILLIAM, No Cough, No Sputum, No Wheezing, No Abdominal Pain, No Diarrhea, No Hematemesis, No Hemoptysis, No Unexpected Weight Loss, No Flank pain, No Melena, No Hematochezia, No Frequency, No Urgency, No Burning, No Hematuria, No Rashes, No Diaphoresis. Appetite is Normal Physical Exam Gen-Awake Alert, NAD, Afebrile Head-NCAT, EOMI, PERRLA, Anicteric Sclera, Bruising under eyes Neck-Supple, Trach, No JVD, No Thyromegaly, No Masses, No LAD, No Bruits Lungs-Clear to Auscultation Bilaterally, No Rales, No Rhonchi, No Wheezing, No Crepitus Chest-No S4, +S1, +S2, No S3, No Murmurs, No Rubs, No Gallops, No Ectopy Abdomen-Soft, Bowel Sounds Present, Non Tender, Non Distended, No Hepatomegaly, No Splenomegaly, No Palpable Masses, No Rebound, No Rigidity, No Guarding Musculoskeletal-Full Range of Motion Bilaterally, No CVAT Extremities-No Cyanosis, No Clubbing, No Edema Nuero-Cranial Nerves II-XII grossly intact, Motor WNL, DTRs WNL, Strength WNL, Non Focal Psych-Pleasant Admission and Anticipated Discharge Date Admission Date: December 28, 2020 Results & Data Results & Data ([facility]) Vital Signs (Past 12 Hours) Vital Signs Temp Pulse Pulse Resp BP Pulse Ox 01/17/21 07:39 37 C 103 H 18 120/77 98 01/17/21 07:12 110 H 01/17/21 04:00 37.4 C 114 H 20 135/75 93 01/17/21 02:50 107 H 01/17/21 00:00 37.3 C 100 H 20 126/70
--- NOTE | 2021-01-17 15:08 | Procedure Note ---
Procedure Note Date of Service January 17, 2021 Note PREOPERATIVE DIAGNOSIS: Trach dependent respiratory failure POSTOPERATIVE DIAGNOSIS: Same as above PROCEDURE PERFORMED: Flexible fiberoptic bronchoscopy with airway inspection COMPLICATIONS: None. INDICATION: Tracheostomy exchange PROCEDURE: Consent was obtained from the patient. The procedure was performed at bedside. The patient was oxygenated with 100% oxygen prior to the procedure. Vital signs were closely monitored. Pulse oximetry readings were in the high 90s. The bronchoscope was introduced via the size 8 Shiley tracheostomy tube and the airway was inspected. Significant excessive dynamic airway collapse was noted of the posterior tracheal wall. The lumen was patent. Mucopurulent secretions were noted at the trachea and these were suctioned. The bronchoscope was then removed. An exchange catheter was introduced through the size 8 Shiley tracheostomy. The Shiley tracheostomy was then removed. The exchange catheter remain in place. A new size 6 non-fenestrated, uncuffed Shiley tracheostomy was introduced over the exchange catheter. The patient tolerated this procedure without issue. Minimal bleeding was noted around the stoma site. I then reintroduced the bronchoscope and noted that the tracheostomy was in proper position. Saturations remained in the high 90s. The bronchoscopy was then removed. Tracheal ties were placed. Patient tolerated the procedure well. Can proceed with Passy-Michael valve trials tomorrow. Coding CPT Codes Pulmonary/Thoracic - Pulmonary and Thoracic: 64590 Bronchoscopy, clear airways ([id number]) Pulmonary/Thoracic - Pulmonary and Thoracic: 12411 Tracheotomy tube change ([id number]) [facility] Procedure Codes (Charges) Pulmonary/Thoracic Procedure 1: Pulmonary and Thoracic: 39800 Bronchoscopy, clear airways Procedure 2: Pulmonary and Thoracic: 08108 Tracheotomy tube change
--- NOTE | 2021-01-17 15:13 | Pulmonology Progress Note ---
Date of Service January 17, 2021 Assessment & Plan (1) Pneumonia due to COVID-19 virus: (2) Acute hypoxemic respiratory failure: 55-year-old female with COVID-19 illness status post tracheostomy placement. Size 8 cuffed Shiley tracheostomy was removed and a size 6 uncuffed tracheostomy was placed today via bronchoscopic exchange without issue. Continue speech therapy and Passy-Michael valve trials tomorrow. Notably secretions around the tracheostomy site were foul-smelling. Patient is currently on ceftaroline for superimposed MRSA pneumonia and also urinary tract infection with E. coli. Continue anticoagulation in the setting of a DVT likely secondary to COVID-19 infection. (3) MRSA pneumonia: (4) Asthma: (5) Tracheostomy care: Admission and Anticipated Discharge Date Admission Date: December 28, 2020 Subjective Patient seen and examined this morning. Currently requiring 10 L oxygen via trach collar. No abdominal pain. No chest pain. Mild shortness of breath. Review of Systems Review of Systems: Review of systems limited due to the patient tracheostomy Physical Exam Physical Exam: Constitutional: No acute distress HEENT: EOMI, PERRLA. Tracheostomy in place. Induration noted around the tracheostomy site. Foul-smelling secretions from the tracheostomy. Respiratory system: Decreased air entry bilaterally, positive crackles bilaterally, no wheeze, no rhonchi CVS: S1-S2 positive, no murmurs or gallops Abdomen: Soft, nontender, nondistended, positive bowel sounds x4 Extremities: +2 pulses bilaterally radialis/ dorsalis pedis, no cyanosis, no edema Neuro: Awake alert oriented Psych: Normal mood and affect G/U: No Restrepo Skin: no rashes, warm and dry Lymphatic: no cervical or axillary lymphadenopathy Results & Data Results & Data ([facility]) Vital Signs (Past 12 Hours) Vital Signs Temp Pulse Pulse Resp BP Pulse Ox 01/17/21 14:44 98.6 F 106 H 22 124/75 95 01/17/21 07:39 98.6 F 103 H 18 120/77 98 01/17/21 07:12 110 H 01/17/21 04:00 99.3 F 114 H 20 135/75 93 I reviewed the vital signs, labs and imaging. PG Care Time/CCT Total # of Minutes Spent Total Time Spent with Patient: Total time spent is greater than 50% in coordination of care (as documented) at patient's floor/unit and/or counseling patient: Coding Level of Care Code 17017 Subseq Hosp Care Lvl 3 Diagnoses Pneumonia due to COVID-19 virus U07.1; J12.82 Acute hypoxemic respiratory failure J96.01 MRSA pneumonia J15.212 Asthma J45.909 Tracheostomy care Z43.0
[2021-01-18] MEDS: TUBE FEEDING WATER FLUSH OG SCH ×5 (04:02→19:45)
[2021-01-18] MEDS: CEFTAROLINE FOSAMIL ACETATE 600 MG in SODIUM CHLORIDE 0.9% 250 ML IV SCH ×3 (04:37→18:20)
[2021-01-18] MEDS: LEVOTHYROXINE SODIUM 25 MCG TABLET PO SCH (05:46)
[2021-01-18] MEDS: INSULIN ASPART 100 UNITS/ML 3 ML PEN SC SCH ×3 (05:58→17:59)
[2021-01-18 08:37] LABS: Hemoglobin 10.8 g/dL (12.0-16.0); Mean Corpuscular Hemoglobin 25.7 pg (25-34); Mean Corpuscular Hgb Conc 30.9 g/dL (32-36); Mean Corpuscular Volume 83.3 fL (80-100); Mean Platelet Volume 10.2 fL (7.4-10.4); Platelet Count 292 K/uL (130-400); RDW Coefficient of Variation 14.9 % (11.5-14.5); RDW Standard Deviation 44.8 fL (36.4-46.3); White Blood Count 6.22 K/uL (4.8-10.8)
[2021-01-18] MEDS: ENOXAPARIN 80 MG/0.8 ML SYR SQ SCH ×2 (08:52→22:50)
[2021-01-18] MEDS: ASPIRIN 81 MG CHEW PO SCH (08:52)
[2021-01-18] MEDS: ATORVASTATIN 20 MG TAB PO SCH (08:52)
[2021-01-18] MEDS: MULTI VIT W/MINERALS LIQUID 15 ML UDP NG SCH (08:52)
[2021-01-18] MEDS: FAMOTIDINE 20 MG TAB PO SCH (08:53)
[2021-01-18] MEDS: allopurinoL 100 MG TAB PO SCH (08:53)
[2021-01-18 09:00] LABS: Prothrombin Time 10.6 Seconds (9.0-12.0)
[2021-01-18 09:13] LABS: BUN Creatinine Ratio 27.3 (10-20); Calcium 9.3 mg/dl (8.5-10.1); Creatinine Clr Calc Pharmacy 119.7 ml/min; Est GFR (African American) 122.3; Est GFR (Non-African American) 105.5; Potassium 3.8 mmol/L (3.5-5.1)
--- NOTE | 2021-01-18 10:40 | Pharmacy Report ---
Pharmacy Glycemic Short Note 2 - Date of Service January 18, 2021 - Glycemic Short BSG Results (Last 24 hours): 01/17/21 01/17/21 01/17/21 12:08 18:00 23:40 Glucose POC Glucose 199 H 114 H 107 H 01/18/21 01/18/21 05:57 08:12 Glucose 104 H POC Glucose 105 H OUTPATIENT ANTIDIABETIC REGIMEN: * Levemir 24 units daily * Metformin * Empagliflozin * Dulaglutide * HbA1c 12.1 % 12/30/20 ASSESSMENT: 01/18: * BSGs were elevated the first half of the day yesterday, however did improve in the afternoon. * Of note, tube feeds have been held since last evening in anticipation of PEG placement today. * Will hold basal insulin at this time as BSGs have dropped to low 100-110 range since feedings held. Will resume Lantus when feedings resume. 01/17: * BSGs acceptable over last 24 hrs * BSGs have been trending slightly higher with the last 2 being 180-215 * 64 units of insulin administered over last 24 hrs while receiving tube feeds at goal. Current regimen appears to be prandial heavy. Will up titrate basal dose to help bring BSGs down to goal PLAN FOR INPATIENT GLYCEMIC CONTROL: no changes needed today * Hold outpatient oral diabetes medications * Basal insulin - hold * Lantus 0 units today - will resume when feedings resume * Bolus insulin - no change * NovoLog per scale q 6 hrs * Goal Range: Low 110 mg/dL - High 140 mg/dL * Correction Factor: 15 mg/dL/unit * Nutritional / Prandial insulin per carb ratio of 1 unit per 3 grams CHO consumed
--- NOTE | 2021-01-18 10:41 | Anesthesiology Consultation ---
Date of Service January 18, 2021 Assessment & Plan Chart Review Chart Review: Acceptable Risk for Surgery and Patient NOT seen in Pre Admission Testing Consults Requested none ASA ASA4 Proposed Anesthesia Anesthesia Type: MAC Risk / Benefits Reviewed With: PT / POA / Parent / Guardian, Accepts Plan and Informed Consent Obtained Additional Comments: covid test positive 12/28/2020 History Surgery Operation Date: 01/18/21 15:30 Proposed Procedures p Esophagogastroduodenoscopy with Gastric Tube Placement Dr Lindquist - Isidra Lindquist, DO Height/Weight Height: 5 ft 5 in Weight: 77.4 kg Allergies Allergy/AdvReac Type Severity Reaction Status Date / Time lisinopril Allergy Unknown Unknown Verified 12/28/20 18:37 meperidine Allergy Unknown Hives Verified 12/28/20 18:36 Penicillins Allergy Unknown Could not Verified 12/28/20 18:37 use arm after shot Medications Home Medications Medication Instructions Recorded Confirmed Last Taken albuterol sulfate 2 puff INHALATION .Q4-6HRS PRN 12/28/20 12/28/20 Unknown albuterol sulfate 2.5 mg INHALATION Q4H PRN 12/28/20 12/28/20 Unknown allopurinol 100 mg PO DAILY 12/28/20 12/28/20 Unknown aspirin 81 mg PO DAILY 12/28/20 12/28/20 Unknown atorvastatin 20 mg PO QAM 12/28/20 12/28/20 Unknown dulaglutide [Trulicity] 0.75 mg SUBCUT WK 12/28/20 12/28/20 Unknown empagliflozin [Jardiance] 25 mg PO DAILY 12/28/20 12/28/20 Unknown fenofibrate micronized 200 mg PO DAILY 12/28/20 12/28/20 Unknown fluticasone propionate [Flovent 2 puff INHALATION BID 12/28/20 12/28/20 Unknown HFA] insulin detemir U-100 [Levemir 24 unit SUBCUT DAILY 12/28/20 12/28/20 Unknown FlexTouch U-100 Insuln] levothyroxine 25 mcg PO QAM 12/28/20 12/28/20 Unknown metformin 1,000 mg PO BIDM 12/28/20 12/28/20 Unknown montelukast 10 mg PO DAILY 12/28/20 12/28/20 Unknown triamcinolone acetonide 1 applic TOPICAL BID 12/28/20 12/28/20 Unknown Active Medications Generic Name Dose Route Start Last Admin Trade Name Freq PRN Reason Stop Dose Admin Acetaminophen 650 mg 12/30/20 14:35 01/17/21 08:14 Acetaminophen Susp 325 Mg/10.15 Ml Udc PO 01/29/21 14:34 650 mg Q4H PRN Administration Pain or Fever Allopurinol 100 mg 12/29/20 09:00 01/18/21 08:53 Allopurinol 100 Mg Tab PO 01/28/21 08:59 Not Given DAILY [facility] Aspirin 81 mg 12/31/20 09:00 01/18/21 08:52 Aspirin 81 Mg Chew PO 01/30/21 08:59 Not Given DAILY [facility] Atorvastatin Calcium 20 mg 12/29/20 09:00 01/18/21 08:52 Atorvastatin 20 Mg Tab PO 01/28/21 08:59 Not Given QAM [facility] Dextrose 25 - 50 ml 12/28/20 21:35 01/08/21 00:20 Dextrose 50% 50 Ml Syringe IV 01/27/21 21:34 50 ml UD PRN Administration Hypoglycemia Protocol Protocol Enoxaparin Sodium 80 mg 01/07/21 21:00 01/18/21 08:52 Enoxaparin 80 Mg/0.8 Ml Syr SQ 02/06/21 20:59 Not Given Q12H [facility] Famotidine 20 mg 12/31/20 11:45 01/18/21 08:53 Famotidine 20 Mg Tab PO 01/30/21 11:44 Not Given QAM [facility] Guaifenesin 200 mg 01/12/21 12:30 01/14/21 08:37 Guaifenesin Sugar Free 200 Mg/10 Ml Udc PO 02/11/21 12:29 200 mg Q4H PRN Administration CONGESTION Heparin Sodium (Beef Lung) 5 ml 01/04/21 22:33 01/09/21 07:56 Heparin 10 Unit/Ml 5 Ml Flush FLUSH 02/03/21 22:32 5 ml PRN PRN Administration Flush Ceftaroline Fosamil 600 mg/ 270 mls @ 250 mls/hr 01/15/21 11:00 01/18/21 05:45 Sodium Chloride IV 01/22/21 10:59 Infused Q8H [facility] Infusion Protocol Insulin Aspart 0 units 01/14/21 12:00 01/18/21 05:58 Insulin Aspart 100 Units/Ml 3 Ml Pen SC 02/13/21 11:59 Not Given Q6 [facility] Protocol Insulin Glargine 25 units 01/17/21 09:00 01/17/21 09:02 Insulin Glargine Solostar 100 Units/Ml 3 Ml Pen SC 02/16/21 08:59 25 units QAM [facility] Administration Levothyroxine Sodium 25 mcg 12/29/20 06:30 01/18/21 05:46 Levothyroxine Sodium 25 Mcg Tablet PO 01/28/21 06:29 25 mcg DAILYBB [facility] Administration Multivitamins/Minerals 15 ml 01/05/21 09:00 01/18/21 08:52 Multi Vit W/Minerals Liquid 15 Ml Udp NG 02/04/21 08:59 Not Given QAM [facility] Nutritional Formula 1,000 ml 12/31/20 10:30 01/16/21 00:00 Peptamen Intense Vhp 1.0 Flip 1,000 Ml Bag OG 01/30/21 10:29 1,000 ml UD S[facility]NA[facility] Administration Protocol Sterile Water 30 ml 01/05/21 12:00 01/18/21 08:52 Tube Feeding Water Flush OG 02/04/21 11:59 Not Given Q4H [facility] NPO Date Last Intake of Fluids: 01/17/21 Time Last Intake of Fluids: 12:30 Last Intake of Fluids Comment: 01/17/21 Date Last Intake of Solids: 01/17/21 Time Last Intake of Solids: 12:30 Last Intake of Solids Comment: tube feedings stopped at 1230 01/17/21 Past Medical History Medical History Tracheostomy care Exercise / Class Metabolic Activity IV < 2 Limit ADL/Bedbound Past Anesthesia History No Hx of Anesthesia Complications and No Family Hx of Anesthesia Complications History of PONV No Hx of PONV and No Hx of Motion Sickness Social History Smoking Status: Never smoker Hx Alcohol Use: No Hx Substance Use: No Physical Exam Vital Signs Last Vital Signs Temp 36.8 C 01/18/21 10:29 Pulse 97 H 01/18/21 10:29 Resp 16 01/18/21 10:29 BP 138/83 01/18/21 10:29 Pulse Ox 91 01/18/21 10:29 Testing Laboratory Results 01/18/21 08:12 01/18/21 08:12 PT 10.6 Seconds (9.0-12.0) 01/18/21 08:12 INR 1.0 (0.9-1.1) 01/18/21 08:12 APTT 27.7 Seconds (21.0-31.0) 12/28/20 18:16 Hemoglobin A1c 12.1 % (4.5-5.6) H 12/30/20 06:08 Urine Color Yellow 12/28/20 22:00 Urine Appearance Cloudy (Clear) A 12/28/20 22:00 Urine pH 5.5 (4.5-7.5) 12/28/20 22:00 Ur Specific Cotton 1.038 (1.000-1.030) H 12/28/20 22:00 Urine Protein 2+ (Negative) H 12/28/20 22:00 Urine Glucose (UA) 3+ (Negative) H 12/28/20 22:00 Urine Ketones Trace (Negative) H 12/28/20 22:00 Urine Nitrite Negative (Negative) 12/28/20 22:00 Ur Leukocyte Esterase Negative (Negative) 12/28/20 22:00 Urine WBC (Auto) 10-30 /hpf (0-5) H 12/28/20 22:00 Urine RBC (Auto) 0-4 /hpf (0-4) 12/28/20 22:00 U Hyaline Cast (Auto) 0 /lpf (0-5) 12/28/20 22:00 U Epithel Cells (Auto) 0-5 /lpf (0-5) 12/28/20 22:00 Urine Bacteria (Auto) 4+ (Negative) H 12/28/20 22:00 Blood Type A Positive 12/28/20 18:16 Antibody Screen NEGATIVE 12/28/20 18:16 01/09/21 Unknown Gram Stain - Final Sputum,Vent Suction Sputum Culture - Final Staph aureus MRSA 01/02/21 11:35 Gram Stain - Final Sputum,Vent Suction Sputum Culture - Final Staph aureus MRSA 12/28/20 18:10 Aerobic Blood Culture - Final Blood No growth in Aerobic bottle after 5 days. Anaerobic Blood Culture - Final No growth in Anaerobic bottle after 5 days. 12/28/20 18:10 Aerobic Blood Culture - Final Blood No growth in Aerobic bottle after 5 days. Anaerobic Blood Culture - Final 12/31/20 Unknown Gram Stain - Final Sputum,Vent Suction Sputum Culture - Final Staph aureus MRSA 12/28/20 22:00 Urine Culture - Final Urine,Clean Catch Escherichia coli 01/18/21 01/17/21 05:57 23:40 POC Glucose 105 H 107 H Electrocardiogram Date: 12/28/20 Findings: + ST @ (at 118;low voltage QRS) Chest X-Ray Date: 01/12/21 persistent bilateral pulmonary opacities
[2021-01-18] MEDS ORDERED: KETAMINE 50 MG/5 ML SYRINGE ONE (10:42)
[2021-01-18] MEDS ORDERED: MIDAZOLAM HCL 1 MG/ML 2ML VIAL ONE (10:42)
--- NOTE | 2021-01-18 10:45 | History & Physical Report ---
Date of Service January 18, 2021 Assessment & Plan (1) Dysphagia: PEG Abx given pre-procedure Admission and Anticipated Discharge Date Admission Date: December 28, 2020 History of Present Illness Chief Complaint: oropharyngeal dysphagia Primary Care Provider: Sarbjit Carballo MD oropharyngeal dysphagia PEG needed Allergies Allergy/AdvReac Type Severity Reaction Status Date / Time lisinopril Allergy Unknown Unknown Verified 12/28/20 18:37 meperidine Allergy Unknown Hives Verified 12/28/20 18:36 Penicillins Allergy Unknown Could not Verified 12/28/20 18:37 use arm after shot Home Medications Medication Instructions Recorded Confirmed Type albuterol sulfate 2 puff INHALATION .Q4-6HRS PRN 12/28/20 12/28/20 History albuterol sulfate 2.5 mg INHALATION Q4H PRN 12/28/20 12/28/20 History allopurinol 100 mg PO DAILY 12/28/20 12/28/20 History aspirin 81 mg PO DAILY 12/28/20 12/28/20 History atorvastatin 20 mg PO QAM 12/28/20 12/28/20 History dulaglutide [Trulicity] 0.75 mg SUBCUT WK 12/28/20 12/28/20 History empagliflozin [Jardiance] 25 mg PO DAILY 12/28/20 12/28/20 History fenofibrate micronized 200 mg PO DAILY 12/28/20 12/28/20 History fluticasone propionate [Flovent 2 puff INHALATION BID 12/28/20 12/28/20 History HFA] insulin detemir U-100 [Levemir 24 unit SUBCUT DAILY 12/28/20 12/28/20 History FlexTouch U-100 Insuln] levothyroxine 25 mcg PO QAM 12/28/20 12/28/20 History metformin 1,000 mg PO BIDM 12/28/20 12/28/20 History montelukast 10 mg PO DAILY 12/28/20 12/28/20 History triamcinolone acetonide 1 applic TOPICAL BID 12/28/20 12/28/20 History Past Med/Surg History Medical History Tracheostomy care Social History Smoking Status: Never smoker Hx Alcohol Use: No Hx Substance Use: No Preferred Language: Albanian Communication Ability: Effective 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 Beliefs That Will Affect Care: None Current Living Situation: Spouse Other Information That Helps Us Care for You: No Feels Safe at Home: Yes Safety Concerns: Feels Safe At This Time Assistive Devices: Oxygen - Continuous Physical Exam Constitutional: WD/WN, vitals as above Respiratory: normal respiratory effort, lungs clear to auscultation Cardiovascular: RRR, no murmur, no edema Gastrointestinal (Abdomen): normal bowel sounds, soft, nontender, no hepatosplenomegaly Results & Data ([facility]) Vital Signs (Past 12 Hours) Vital Signs Temp Pulse Pulse Resp BP Pulse Ox 01/18/21 10:29 36.8 C 97 H 16 138/83 91 01/18/21 07:24 37.0 C 107 H 22 125/77 99 01/18/21 07:05 93 H 01/18/21 00:09 96 H 01/17/21 23:41 37.0 C 98 H 22 132/78 92 Code Status & VTE Plan VTE Prophylaxis Plan VTE Prophylaxis will be ordered: Yes
[2021-01-18] MEDS ORDERED: ATROPINE SULFATE 0.1 MG/ML 10ML SYR IV PRN ×2 (10:53→10:54)
[2021-01-18] MEDS ORDERED: ePHEDrine sulfate 50 MG/ML AMP IV PRN ×2 (10:53→10:54)
--- NOTE | 2021-01-18 10:58 | Hospitalist Progress Note ---
Date of Service January 18, 2021 Assessment & Plan (1) Acute hypoxemic respiratory failure: Secondary to asthma exacerbation secondary to severe COVID-19 pneumonia, MRSA Pneumonia Initial CXR: Multifocal bilateral airspace opacities. This likely represents a viral pneumonia. Was on high flow O2 initially and failed to maintain saturation s/p mechanical intubation 12/30/20 [facility] Vent Day # 8 , status post tracheotomy on 01/07/2021 Repeat chest x-ray did not show any improvement of the bilateral multilobar pneumonia Status post bronchoscopy with clearing of bronchial secretion Status post tracheotomy on 01/07/2021 LTAC placement denied Remains stable [place] on DC DVT in 2 right peroneal veins Started on Lovenox subcu twice daily Superimposed bacterial pneumonia blood cultures: negative Sputum culture: MRSA Received Ceftriaxone IV x 2 days transitioned to Ceftaroline IV Stop 01/19 White counts keep elevated and she remains febrile White count has been improving but he still has high temperature 37.8 Her white count remains elevated and still febrile Sputum has been sent for reculture and in the meantime we will continue intravenous Ceftaroline for a total of 14 days No more fever and white count has been improving Continue current antibiotic to finish a total course of 14 days Ceftraroline discontinued COVID-19 pneumonia Continue Decadron Day [address] Duvall's recommendation, basing on NIH guideline Convalescent plasma given As above-finished the course of antiviral, convalescent plasma and steroid She can be taken off isolation from Covid 19 as per infectious disease UTI E coli Ceftriaxone IV x 2 days transitioned to Ceftaroline IV day #14, stop date January 19 Hypertension Monitor ARF secondary to illness Resolved Diarrhea secondary to illness Resolved hyperlipidemia on statin Rx DM2 insulin requiring, suboptimal control asked off recent outpatient hemoglobin A1c of 12.28 November 2020 Glycemic pharmacy consult Leukocytosis-Resolved DVT prophylaxis. Heparin Subcu Lovenox SC for DVT Prophylaxis Full code Overall prognosis improving Case was Discussed with the patient's daughter in detail on 01/05/2021 Conference call with her daughter and the patient was done Gradual improvement of her condition-We will need placement on discharge, Keanu Baeza this week Failed Swallow eval, PEG Today, Pulm Placed new Trach Labs checked ROS-No Headache, No Visual Changes, No Nausea, No Vomiting, No Fever, No Chills, No Neck Pain or Stiffness, No Chest Pain, No Palpitations, No SOB, No WILLIAM, No Cough, No Sputum, No Wheezing, No Abdominal Pain, No Diarrhea, No Hematemesis, No Hemoptysis, No Unexpected Weight Loss, No Flank pain, No Melena, No Hematochezia, No Frequency, No Urgency, No Burning, No Hematuria, No Rashes, No Diaphoresis. Appetite is Normal Physical Exam Gen-Awake Alert, NAD, Afebrile, +NGT Head-NCAT, EOMI, PERRLA, Anicteric Sclera, Bruising under eyes Neck-Supple, Trach, No JVD, No Thyromegaly, No Masses, No LAD, No Bruits Lungs-Clear to Auscultation Bilaterally, No Rales, No Rhonchi, No Wheezing, No Crepitus Chest-No S4, +S1, +S2, No S3, No Murmurs, No Rubs, No Gallops, No Ectopy Abdomen-Soft, Bowel Sounds Present, Non Tender, Non Distended, No Hepatomegaly, No Splenomegaly, No Palpable Masses, No Rebound, No Rigidity, No Guarding Musculoskeletal-Full Range of Motion Bilaterally, No CVAT Extremities-No Cyanosis, No Clubbing, No Edema Nuero-Cranial Nerves II-XII grossly intact, Motor WNL, DTRs WNL, Strength WNL, Non Focal Psych-Pleasant Admission and Anticipated Discharge Date Admission Date: December 28, 2020 Results & Data Results & Data ([facility]) Vital Signs (Past 12 Hours) Vital Signs Temp Pulse Pulse Resp BP Pulse Ox 01/18/21 10:29 36.8 C 97 H 16 138/83 91 01/18/21 07:24 37.0 C 107 H 22 125/77 99 01/18/21 07:05 93 H 01/18/21 00:09 96 H 01/17/21 23:41 37.0 C 98 H 22 132/78 92
[2021-01-18] MEDS ORDERED: PROPOFOL IV EMULSION 10 MG/ML 20 ML VIAL IV ONE (11:22)
[2021-01-18] MEDS ORDERED: LIDOCAINE HCL 2% 2 ML VIAL/AMP(20MG/ML) INFIL ONE (11:22)
[2021-01-18] MEDS ORDERED: BENZOCAIN/TETRACA/BUTAM SPRAY 200 APPLN/20 GM SPRY EXT ONE (11:22)
--- NOTE | 2021-01-18 11:30 | GI REPORT ---
Patient Name: Shalini Byers Procedure Date: 01/18/2021 10:14 AM Date of : 1965 Admit Type: Inpatient Age: 55 Gender: Female Attending MD: Isidra Lindquist DO Procedure: Upper GI endoscopy Providers: Isidra Lindquist DO Referring MD: Benja Proctor Do Indications: Oropharyngeal phase dysphagia, Place PEG to improve nutrition in patient with prolonged severe illness Medicines: Propofol per Anesthesia Complications: No immediate complications. Estimated blood loss: Minimal. Estimated Blood Loss: Estimated blood loss was minimal. Procedure: Pre-Anesthesia Assessment: - Prior to the procedure, a History and Physical was performed, and patient medications, allergies and sensitivities were reviewed. The patient's tolerance of previous anesthesia was reviewed. - The risks and benefits of the procedure and the sedation options and risks were discussed with the patient. All questions were answered and informed consent was obtained. - Patient identification and proposed procedure were verified prior to the procedure by the physician and the nurse. The procedure was verified in the pre-procedure area in the procedure room. - Mental Status Examination: alert and oriented. Airway Examination: normal oropharyngeal airway and neck mobility. Respiratory Examination: clear to auscultation. CV Examination: normal. Abdominal Examination: bowel sounds present, abdomen soft and non-tender, no masses or organomegaly noted. - ASA Grade Assessment: IV - A patient with severe systemic disease that is a constant threat to life. After obtaining informed consent, the endoscope was passed under direct vision. Throughout the procedure, the patient's blood pressure, pulse, and oxygen saturations were monitored continuously. The Scope was introduced through the mouth, and advanced to the second part of duodenum. The upper GI endoscopy was accomplished without difficulty. The patient tolerated the procedure well. Findings: The esophagus was normal. The gastric body was normal. The patient was placed in the supine position for PEG placement. The stomach was insufflated to appose gastric and abdominal aldrich. A site was located in the body of the stomach with excellent transillumination and manual external pressure for placement. The abdominal wall was marked and prepped in a sterile manner. The area was anesthetized with 5 mL of 1% lidocaine. The trocar needle was introduced through the abdominal wall and into the stomach under direct endoscopic view. A snare was introduced through the endoscope and opened in the gastric lumen. The guide wire was passed through the trocar and into the open snare. The snare was closed around the guide wire. The endoscope and snare were removed, pulling the wire out through the mouth. A skin incision was made at the site of needle insertion. The externally removable 20 Fr Ren-Cook gastrostomy tube was lubricated. The G-tube was tied to the guide wire and pulled through the mouth and into the stomach. The trocar needle was removed, and the gastrostomy tube was pulled out from the stomach through the skin. The external bumper was attached to the gastrostomy tube, and the tube was cut to remove the guide wire. The final position of the gastrostomy tube was confirmed by relook endoscopy, and skin marking noted to be 4 cm at the external bumper. The final tension and compression of the abdominal wall by the PEG tube and external bumper were checked and revealed that the bumper was loose and lightly touching the skin. The feeding tube was capped, and the tube site cleaned and dressed. Estimated blood loss was minimal. The examined duodenum was normal. Impression: - Normal esophagus. - Normal gastric body. - Normal examined duodenum. - An externally removable PEG placement was successfully completed. - No specimens collected. Recommendation: - Please follow the post-PEG recommendations including: Nutrition consult for formula and volume, change dressing once per day, dry dressing only, may use PEG today for meds and water, may use PEG tomorrow for feedings and flush PEG daily with 60 ml water. - Hold Lovenox today - Return patient to hospital baer for ongoing care. Isidra Lindquist D.O. Isidra Lindquist, 01/18/2021 11:30:23 AM This report has been signed electronically. Note Initiated On: 01/18/2021 10:14 AM Number of Addenda: 0 I attest to the content of the Intraoperative Record and orders documented therein, exceptions below {[id number]}
--- NOTE | 2021-01-18 11:40 | Anesthesiology Progress Note ---
Date of Service January 18, 2021 Anesthesia Post Procedure Vital Signs Vital Signs: Temp Pulse Pulse Resp BP BP Pulse Ox 01/18/21 11:26 109 H 16 117/78 89 L 01/18/21 10:29 36.8 C 97 H 16 138/83 91 01/18/21 07:24 37.0 C 107 H 22 125/77 99 01/18/21 07:05 93 H 01/18/21 00:09 96 H 01/17/21 23:41 37.0 C 98 H 22 132/78 92 01/17/21 20:00 36.9 C 99 H 22 131/80 93 01/17/21 14:44 37.0 C 106 H 22 124/75 95 Transfer of Care Handoff Completed per policy Notes Mental Status: alert / awake / arousable Patient Amnestic to Procedure: Yes Nausea / Vomiting: adequately controlled Pain: adequately controlled Airway Patency, RR, SpO2: stable & adequate BP & HR: stable & adequate Hydration State: stable & adequate Anesthetic Complications: no major complications apparent
--- NOTE | 2021-01-18 15:41 | Pulmonology Progress Note ---
Date of Service January 18, 2021 Assessment & Plan (1) Pneumonia due to COVID-19 virus: (2) Acute hypoxemic respiratory failure: 55-year-old female with COVID-19 illness status post tracheostomy placement. Size 6 Shiley nonfenestrated, uncuffed tracheostomy in place and exchanged on 01/17/2021. Notably secretions around the tracheostomy site are foul-smelling. Patient is currently on ceftaroline for superimposed MRSA pneumonia and also urinary tract infection with E. coli. Continue to wean oxygen to maintain saturations of 92 to 94%. Continue anticoagulation in the setting of a DVT likely secondary to COVID-19 infection. Pulmonary will follow from the periphery. Please call with questions. (3) MRSA pneumonia: (4) Asthma: (5) Tracheostomy care: Admission and Anticipated Discharge Date Admission Date: December 28, 2020 Subjective Patient seen and examined today. She is sitting up in her chair. Family member at bedside. She feels that her breathing is a lot easier and the swelling in her neck has improved substantially after downsizing her tracheostomy. No fevers or chills. No night sweats. Underwent placement of PEG tube today. Review of Systems Review of Systems: All systems reviewed & are unremarkable except as noted in HPI & below Physical Exam Physical Exam: Constitutional: No acute distress HEENT: EOMI, PERRLA. Tracheostomy in place. Induration noted around the tracheostomy site. Foul-smelling secretions from the tracheostomy. Respiratory system: Decreased air entry bilaterally, positive crackles bilaterally, no wheeze, no rhonchi CVS: S1-S2 positive, no murmurs or gallops Abdomen: Soft, nontender, nondistended, positive bowel sounds x4 Extremities: +2 pulses bilaterally radialis/ dorsalis pedis, no cyanosis, no edema Neuro: Awake alert oriented Psych: Normal mood and affect G/U: No Restrepo Skin: no rashes, warm and dry Lymphatic: no cervical or axillary lymphadenopathy Results & Data Results & Data ([facility]) Vital Signs (Past 12 Hours) Vital Signs Temp Pulse Pulse Resp BP Pulse Ox 01/18/21 15:25 98.4 F 118 H 22 115/78 98 01/18/21 14:54 107 H 01/18/21 12:24 98.4 F 104 H 22 112/72 89 L 01/18/21 11:55 105 H 16 115/70 92 01/18/21 11:41 107 H 16 117/69 90 01/18/21 11:26 109 H 16 117/78 89 L 01/18/21 10:29 98.2 F 97 H 16 138/83 91 01/18/21 07:24 98.6 F 107 H 22 125/77 99 01/18/21 07:05 93 H vital signs labs and imaging reviewed. PG Care Time/CCT Total # of Minutes Spent Total Time Spent with Patient: Total time spent is greater than 50% in coordination of care (as documented) at patient's floor/unit and/or counseling patient: Coding Level of Care Code 09706 Subseq Hosp Care Lvl 3 Diagnoses Pneumonia due to COVID-19 virus U07.1; J12.82 Acute hypoxemic respiratory failure J96.01 MRSA pneumonia J15.212 Asthma J45.909 Tracheostomy care Z43.0
[2021-01-19] MEDS: TUBE FEEDING WATER FLUSH OG SCH ×6 (00:56→20:50)
[2021-01-19] MEDS: INSULIN ASPART 100 UNITS/ML 3 ML PEN SC SCH ×5 (00:56→20:00)
[2021-01-19] MEDS: CEFTAROLINE FOSAMIL ACETATE 600 MG in SODIUM CHLORIDE 0.9% 250 ML IV SCH ×3 (04:06→18:41)
[2021-01-19] MEDS: LEVOTHYROXINE SODIUM 25 MCG TABLET PO SCH (05:39)
[2021-01-19 07:14] LABS: Hemoglobin 9.6 g/dL (12.0-16.0); Mean Corpuscular Hemoglobin 25.6 pg (25-34); Mean Corpuscular Volume 82.7 fL (80-100); Mean Platelet Volume 10.1 fL (7.4-10.4); Platelet Count 260 K/uL (130-400); RDW Coefficient of Variation 15.1 % (11.5-14.5); RDW Standard Deviation 45.2 fL (36.4-46.3); Red Blood Count 3.75 M/uL (4.2-5.4); White Blood Count 6.31 K/uL (4.8-10.8)
[2021-01-19 07:42] LABS: BUN Creatinine Ratio 27.8 (10-20); Calcium 8.5 mg/dl (8.5-10.1); Creatinine Clr Calc Pharmacy 143.6 ml/min; Est GFR (African American) 129.8; Potassium 3.9 mmol/L (3.5-5.1)
--- NOTE | 2021-01-19 08:16 | Hospitalist Progress Note ---
Date of Service January 19, 2021 Assessment & Plan (1) Acute hypoxemic respiratory failure: Secondary to asthma exacerbation secondary to severe COVID-19 pneumonia, MRSA Pneumonia Initial CXR: Multifocal bilateral airspace opacities. This likely represents a viral pneumonia. Was on high flow O2 initially and failed to maintain saturation s/p mechanical intubation 12/30/20 [facility] Vent Day # 8 , status post tracheotomy on 01/07/2021 Repeat chest x-ray did not show any improvement of the bilateral multilobar pneumonia Status post bronchoscopy with clearing of bronchial secretion Status post tracheotomy on 01/07/2021 LTAC placement denied Remains stable [facility] on DC DVT in 2 right peroneal veins Started on Lovenox subcu twice daily Superimposed bacterial pneumonia blood cultures: negative Sputum culture: MRSA Received Ceftriaxone IV x 2 days transitioned to Ceftaroline IV Stop 01/19 White counts keep elevated and she remains febrile White count has been improving but he still has high temperature 37.8 Her white count remains elevated and still febrile Sputum has been sent for reculture and in the meantime we will continue intravenous Ceftaroline for a total of 14 days No more fever and white count has been improving Continue current antibiotic to finish a total course of 14 days Ceftraroline discontinued COVID-19 pneumonia Continue Decadron Day [address] Duvall's recommendation, basing on NIH guideline Convalescent plasma given As above-finished the course of antiviral, convalescent plasma and steroid She can be taken off isolation from Covid 19 as per infectious disease UTI E coli Ceftriaxone IV x 2 days transitioned to Ceftaroline IV day #14, stop date January 19 Hypertension Monitor ARF secondary to illness Resolved Diarrhea secondary to illness Resolved hyperlipidemia on statin Rx DM2 insulin requiring, suboptimal control asked off recent outpatient hemoglobin A1c of 12.28 November 2020 Glycemic pharmacy consult Leukocytosis-Resolved DVT prophylaxis. Heparin Subcu Lovenox SC for DVT Prophylaxis Full code Overall prognosis improving Case was Discussed with the patient's daughter in detail on 01/05/2021 Conference call with her daughter and the patient was done Gradual improvement of her condition-We will need placement on discharge, Keanu Baeza this week Failed Swallow eval, PEG Placed 01/18, Pulm Placed new Trach, Patient feels she can pass a swallow eval, so one ordered for today, Acute Rehab soon Labs checked ROS-No Headache, No Visual Changes, No Nausea, No Vomiting, No Fever, No Chills, No Neck Pain or Stiffness, No Chest Pain, No Palpitations, No SOB, No WILLIAM, No Cough, No Sputum, No Wheezing, No Abdominal Pain, No Diarrhea, No Hematemesis, No Hemoptysis, No Unexpected Weight Loss, No Flank pain, No Melena, No Hematochezia, No Frequency, No Urgency, No Burning, No Hematuria, No Rashes, No Diaphoresis. Appetite is Normal Physical Exam Gen-Awake Alert, NAD, Afebrile, +NGT Head-NCAT, EOMI, PERRLA, Anicteric Sclera, Bruising under eyes Neck-Supple, Trach, No JVD, No Thyromegaly, No Masses, No LAD, No Bruits Lungs-Clear to Auscultation Bilaterally, No Rales, No Rhonchi, No Wheezing, No Crepitus Chest-No S4, +S1, +S2, No S3, No Murmurs, No Rubs, No Gallops, No Ectopy Abdomen-Soft, Bowel Sounds Present, Non Tender, Non Distended, No Hepatomegaly, No Splenomegaly, No Palpable Masses, No Rebound, No Rigidity, No Guarding Musculoskeletal-Full Range of Motion Bilaterally, No CVAT Extremities-No Cyanosis, No Clubbing, No Edema Nuero-Cranial Nerves II-XII grossly intact, Motor WNL, DTRs WNL, Strength WNL, Non Focal Psych-Pleasant Admission and Anticipated Discharge Date Admission Date: December 28, 2020 Results & Data Results & Data ([facility]) Vital Signs (Past 12 Hours) Vital Signs Temp Pulse Pulse Pulse Resp BP BP 01/19/21 06:19 37.6 C H 112 H 16 123/79 01/19/21 05:40 108 H 01/19/21 00:00 37.1 C 104 H 18 124/70 01/18/21 23:39 123 H 20 Pulse Ox 01/19/21 06:19 94 01/19/21 05:40 01/19/21 00:00 97 01/18/21 23:39 90
[2021-01-19] MEDS: ATORVASTATIN 20 MG TAB PO SCH (08:41)
[2021-01-19] MEDS: ENOXAPARIN 80 MG/0.8 ML SYR SQ SCH ×2 (08:41→20:49)
[2021-01-19] MEDS: MULTI VIT W/MINERALS LIQUID 15 ML UDP NG SCH (08:42)
[2021-01-19] MEDS: FAMOTIDINE 20 MG TAB PO SCH (08:42)
[2021-01-19] MEDS: allopurinoL 100 MG TAB PO SCH (08:43)
[2021-01-19] MEDS: ASPIRIN 81 MG CHEW PO SCH (08:48)
--- NOTE | 2021-01-19 11:15 | Fluoroscopy Report ---
FL video swallow CLINICAL HISTORY: 55 years-old Female with pt had recent trach change feels she can swallow . Acute dysphasia TECHNIQUE: Video fluoroscopic evaluation of swallowing was performed in the AP and lateral projection s by the speech pathology staff. The patient is fed nectar-thick and thin liquid barium, a barium coa myke wafer, and barium pudding. FLUOROSCOPY TIME: 0.9 minutes. COMPARISON STUDY: Swallow study 01/16/2021 FINDINGS: There is normal hyoid excursion and epiglottic deflection. No significant penetration or as piration identified. Swallowing function is within normal limits. IMPRESSION: 1. No aspiration identified. 2. Please see the speech pathologist report for detailed findings and recommendations. ACT 112: Negative or not required by law. Electronically signed by: Abdulkadir Espinoza M.D. 01/19/2021 11:14 AM
[2021-01-19] MEDS ORDERED: Nursing to Pharmacy Communication SCH (12:15)
--- NOTE | 2021-01-19 13:55 | Pharmacy Report ---
Pharmacy Glycemic Short Note 2 - Date of Service January 19, 2021 - Glycemic Short BSG Results (Last 24 hours): 01/18/21 01/18/21 01/19/21 17:42 23:12 04:59 Glucose POC Glucose 99 101 H 94 01/19/21 01/19/21 01/19/21 06:37 08:00 11:26 Glucose 97 POC Glucose 100 H 94 OUTPATIENT ANTIDIABETIC REGIMEN: * Levemir 24 units daily * Metformin * Empagliflozin * Dulaglutide * HbA1c 12.1 % 12/30/20 ASSESSMENT: 01/19: * BSGs well controlled over last 24 hrs * No nutrition was provided yesterday or this AM as PEG tube was not yet to be used. BSGs have remained 94-101 with no basal provided. * Patient did have a swallow eval today and as a result her diet has been advanced. She currently is doing well with PO intake. * Will begin a scaled dose of Lantus this PM * Will lessen Novolog doses as needs may be less when carbs not delivered in continuous feeds. * Need for tube feeds will be reassessed later today or tomorrow. 01/18: * BSGs were elevated the first half of the day yesterday, however did improve in the afternoon. * Of note, tube feeds have been held since last evening in anticipation of PEG placement today. * Will hold basal insulin at this time as BSGs have dropped to low 100-110 range since feedings held. Will resume Lantus when feedings resume. 01/17: * BSGs acceptable over last 24 hrs * BSGs have been trending slightly higher with the last 2 being 180-215 * 64 units of insulin administered over last 24 hrs while receiving tube feeds at goal. Current regimen appears to be prandial heavy. Will up titrate basal dose to help bring BSGs down to goal PLAN FOR INPATIENT GLYCEMIC CONTROL: no changes needed today * Hold outpatient oral diabetes medications * Basal insulin - resume * Lantus Q HS per scale: * 0 units if BSG less than 140 * 12 units if BSG 140 or greater * Bolus insulin - decrease * NovoLog per scale ACHS * Goal Range: Low 110 mg/dL - High 140 mg/dL * Correction Factor: 18 mg/dL/unit * Nutritional / Prandial insulin per carb ratio of 1 unit per 5 grams CHO consumed
--- NOTE | 2021-01-19 14:04 | Pulmonology Progress Note ---
Date of Service January 19, 2021 Assessment & Plan (1) Pneumonia due to COVID-19 virus: (2) Acute hypoxemic respiratory failure: 55-year-old female with COVID-19 illness status post tracheostomy placement. Size 6 Shiley nonfenestrated, uncuffed tracheostomy in place and exchanged on 01/17/2021. Ongoing Passy-Michael valve speaking trials. She is doing very well. Patient is currently on ceftaroline for superimposed MRSA pneumonia and also urinary tract infection with E. coli. Continue to wean oxygen to maintain saturations of 92 to 94%. She is currently requiring 10 L via trach collar. Continue anticoagulation in the setting of a DVT likely secondary to COVID-19 infection. Pulmonary will follow from the periphery. Please call with questions. (3) MRSA pneumonia: (4) Asthma: (5) Tracheostomy care: Admission and Anticipated Discharge Date Admission Date: December 28, 2020 Subjective Patient seen and examined today. She passed her swallow study. She is doing very well with Passy-Michael speaking valve trials. She is able to speak today, but has a weak voice. She is also able to eat food. She denies any significant shortness of breath, but he still requiring 10 L of oxygen via the trach collar. Review of Systems Review of Systems: All systems reviewed & are unremarkable except as noted in HPI & below Physical Exam Physical Exam: Constitutional: No acute distress HEENT: EOMI, PERRLA. Tracheostomy in place. Swelling and induration from the tracheostomy site have improved. Respiratory system: Decreased air entry bilaterally, positive crackles bilaterally, no wheeze, no rhonchi CVS: S1-S2 positive, no murmurs or gallops Abdomen: Soft, nontender, nondistended, positive bowel sounds x4 Extremities: +2 pulses bilaterally radialis/ dorsalis pedis, no cyanosis, no edema Neuro: Awake alert oriented Psych: Normal mood and affect G/U: No Restrepo Skin: no rashes, warm and dry Lymphatic: no cervical or axillary lymphadenopathy Results & Data Results & Data ([facility]) Vital Signs (Past 12 Hours) Vital Signs Temp Pulse Pulse Resp BP Pulse Ox 01/19/21 11:34 98.6 F 106 H 20 123/82 98 01/19/21 08:00 103 H 01/19/21 06:19 99.7 F H 112 H 16 123/79 94 01/19/21 05:40 108 H reviewed the vital signs, labs and imaging PG Care Time/CCT Total # of Minutes Spent Total Time Spent with Patient: Total time spent is greater than 50% in coordination of care (as documented) at patient's floor/unit and/or counseling patient: Coding Level of Care Code 43198 Subseq Hosp Care Lvl 3 Diagnoses Pneumonia due to COVID-19 virus U07.1; J12.82 Acute hypoxemic respiratory failure J96.01 MRSA pneumonia J15.212 Asthma J45.909 Tracheostomy care Z43.0
[2021-01-19] MEDS: INSULIN GLARGINE SOLOSTAR 100 UNITS/ML 3 ML PEN SC SCH (20:00)
[2021-01-20] MEDS: TUBE FEEDING WATER FLUSH OG SCH ×6 (00:15→22:20)
[2021-01-20] MEDS: CEFTAROLINE FOSAMIL ACETATE 600 MG in SODIUM CHLORIDE 0.9% 250 ML IV SCH (04:00)
[2021-01-20] MEDS: LEVOTHYROXINE SODIUM 25 MCG TABLET PO SCH (07:29)
--- NOTE | 2021-01-20 09:25 | Discharge Summary ---
Date of Service January 20, 2021 Admission HPI Per Admitting Provider Chief Complaint: Shortness of breath Primary Care Provider: Sarbjit Carballo MD History obtained from patient, family, and records. Medical history significant for asthma, hypertension, hyperlipidemia, DM2 insulin requiring. Last confinement March 2017 for chest pain. Stress echo was negative. 5 days history of body aches, flulike symptoms, diarrhea without abdominal pain. Dry cough followed by shortness of breath and wheezing at home. Infrequent asthma attacks/rescue inhaler use prior to illness. Possible sick COVID-19 contacts. Outpatient COVID-19 test from 2 days ago was positive. Patient noted worsening shortness of breath today with achy chest pain, headache attributed to coughing. O2 sats at home noted to be 70s. Patient brought to the ER by EMS. Decadron administered at the ER. BiPAP initiated in the ER. Admission Exam Per Admitting Provider GENERAL: Slightly uncomfortable, slightly anxious, minimal respiratory distress SKIN: Normal color, warm HEENT: [place] palpebral conjunctivae, no ptosis, dry buccal mucosa, BiPAP in place NECK : Supple, no tenderness CHEST : Decreased breath sounds, occasional expiratory wheezes, no tenderness HEART : Tachycardic, no obvious murmurs ABDOMEN: Some distention, nontender EXTREMITIES : No LE swelling/tenderness, no other conspicuous deformities noted NEUROLOGIC : Coherent, no facial asymmetry, no other gross focality Principal Diagnosis Acute hypoxemic respiratory failure: DVT in 2 right peroneal veins Superimposed bacterial pneumonia COVID-19 pneumonia UTI E coli Hypertension ARF Diarrhea hyperlipidemia DM2 insulin requiring, suboptimal control asked off recent outpatient hemoglobin A1c of 12.28 November 2020 Leukocytosis Discharge Exam See below Discharge Data Allergies Allergy/AdvReac Type Severity Reaction Status Date / Time lisinopril Allergy Unknown Unknown Verified 12/28/20 18:37 meperidine Allergy Unknown Hives Verified 12/28/20 18:36 Penicillins Allergy Unknown Could not Verified 12/28/20 18:37 use arm after shot Consultations 12/28/20 19:08 ED Decision to Admit Stat 12/29/20 16:19 Consult Pulmonology Routine 01/03/21 08:51 Consult Environmental Studies Department Chair Routine 01/16/21 15:17 Consult Gastroenterology Routine 01/17/21 11:07 Consult Otolaryngology (Head and Neck) Routine 01/19/21 08:18 Consult Infectious Diseases Routine Current Diagnoses Unspecified Escherichia coli [E. coli] as the cause of diseases classified elsewhere (12/28/20) Type 2 diabetes mellitus without complications (12/28/20) Pneumonia due to coronavirus disease 2019 (12/28/20) Pneumonia due to Methicillin resistant Staphylococcus aureus (12/28/20) Unspecified asthma, uncomplicated (12/28/20) Acute respiratory failure with hypoxia (12/28/20) Urinary tract infection, site not specified (12/28/20) Dysphagia, unspecified (12/28/20) COVID-19 (12/28/20) Encounter for attention to tracheostomy (12/28/20) Allergies lisinopril Allergy (Unknown, Verified 12/28/20 18:37) Unknown meperidine Allergy (Unknown, Verified 12/28/20 18:36) Hives Penicillins Allergy (Unknown, Verified 12/28/20 18:37) Could not use arm after shot Height/Weight/Isolation Height 5 ft 5 in Weight 76.6 kg Isolation Type Contact Precautions Chemistry 01/19/21 06:37 Sodium 141 Potassium 3.9 Chloride 107 Carbon Dioxide 28 Anion Gap 6.0 BUN 13 Creatinine 0.45 L Glucose 97 Microbiology 01/19/21 09:00 Blood Aerobic Blood Culture - Pending 01/19/21 09:00 Blood Anaerobic Blood Culture - Pending 01/19/21 09:20 Blood Aerobic Blood Culture - Pending 01/19/21 09:20 Blood Anaerobic Blood Culture - Pending Procedures Performed Operation Date: 01/18/21 15:30 Actual Procedures p EGD Gastric Tube Placement - Isidra Lindquist, Ordered Studies 01/05/21 10:36 US point of care ultrasound Stat US point of care ultrasound Stat 01/07/21 00:00 US venous doppler LE BI Urgent 01/16/21 07:00 FL video swallow Routine 01/19/21 07:00 FL video swallow Routine Diabetes Follow up Diabetes Follow-up Needed for HgbA1c >9% Hospital Course (1) Acute hypoxemic respiratory failure: Secondary to asthma exacerbation secondary to severe COVID-19 pneumonia, MRSA Pneumonia Initial CXR: Multifocal bilateral airspace opacities. This likely represents a viral pneumonia. Was on high flow O2 initially and failed to maintain saturation s/p mechanical intubation 12/30/20 [facility] Vent Day # 8 , status post tracheotomy on 01/07/2021 Repeat chest x-ray did not show any improvement of the bilateral multilobar pneumonia Status post bronchoscopy with clearing of bronchial secretion Status post tracheotomy on 01/07/2021 [facility] on DC today DVT in 2 right peroneal veins Started on Lovenox subcu twice daily Superimposed bacterial pneumonia blood cultures: negative Sputum culture: MRSA Received Ceftriaxone IV x 2 days transitioned to Ceftaroline IV Stop 01/19 White counts keep elevated and she remains febrile White count has been improving but he still has high temperature 37.8 Her white count remains elevated and still febrile Sputum has been sent for reculture and in the meantime we will continue intravenous Ceftaroline for a total of 14 days No more fever and white count has been improving Continue current antibiotic to finish a total course of 14 days Ceftraroline discontinued COVID-19 pneumonia Stop Decadron Day [address] Duvall's recommendation, basing on NIH guideline Convalescent plasma given As above-finished the course of antiviral, convalescent plasma and steroid She can be taken off isolation from Covid 19 as per infectious disease UTI E coli Ceftriaxone IV x 2 days transitioned to Ceftaroline IV day #14, stop date January 19 Hypertension Monitor ARF secondary to illness Resolved Diarrhea secondary to illness Resolved hyperlipidemia on statin Rx DM2 insulin requiring, suboptimal control asked off recent outpatient hemoglobin A1c of 12.28 November 2020 Glycemic pharmacy consult Leukocytosis-Resolved DVT prophylaxis. Heparin Subcu Lovenox SC for DVT Prophylaxis Full code Overall prognosis improving Case was Discussed with the patient's daughter in detail on 01/05/2021 Conference call with her daughter and the patient was done Gradual improvement of her condition-We will need placement on discharge, Keanu Baeza this week Failed Swallow eval, PEG Placed 01/18, Pulm Placed new Trach, Patient passed a swallow eval assed Acute Rehab Today Labs checked ROS-No Headache, No Visual Changes, No Nausea, No Vomiting, No Fever, No Chills, No Neck Pain or Stiffness, No Chest Pain, No Palpitations, No SOB, No WILLIAM, No Cough, No Sputum, No Wheezing, No Abdominal Pain, No Diarrhea, No Hematemesis, No Hemoptysis, No Unexpected Weight Loss, No Flank pain, No Melena, No Hematochezia, No Frequency, No Urgency, No Burning, No Hematuria, No Rashes, No Diaphoresis. Appetite is Normal Physical Exam Gen-Awake Alert, NAD, Afebrile Head-NCAT, EOMI, PERRLA, Anicteric Sclera, Bruising under eyes Neck-Supple, Trach, No JVD, No Thyromegaly, No Masses, No LAD, No Bruits Lungs-Clear to Auscultation Bilaterally, No Rales, No Rhonchi, No Wheezing, No Crepitus Chest-No S4, +S1, +S2, No S3, No Murmurs, No Rubs, No Gallops, No Ectopy Abdomen-Soft, Bowel Sounds Present, Non Tender, Non Distended, No Hepatomegaly, No Splenomegaly, No Palpable Masses, No Rebound, No Rigidity, No Guarding Musculoskeletal-Full Range of Motion Bilaterally, No CVAT Extremities-No Cyanosis, No Clubbing, No Edema Nuero-Cranial Nerves II-XII grossly intact, Motor WNL, DTRs WNL, Strength WNL, Non Focal Psych-Pleasant Total Time Total Time Spent Total Time Spent (In Minutes): 45 mins Total Time Includes: Examination of the Patient, Discharge Planning, Medication Reconciliation and Communication With Other Providers Discharge Plan Discharge Items Patient Disposition: Transfer Inpatient Rehab Fac Reason For Visit: Resp Failure, Covid Discharge Diagnosis: Acute hypoxemic respiratory failure: DVT in 2 right peroneal veins Superimposed bacterial pneumonia COVID-19 pneumonia UTI E coli Hypertension ARF Diarrhea hyperlipidemia DM2 Leukocytosis Condition on Discharge: Fair Activity: Resume your previous activity Lifting: None Bathing: No limitations Exercise/Sports: Gradually increase as tolerated Driving/Machine Use: No limitations Weightbearing: Full weightbearing Non-emergency contact: Primary Care Provider and Assistant Engineer Call non-emergency contact if: you have any medication questions Follow-up/Referrals: Sarbjit Carballo MD [Primary Care Provider] - Isidra Lindquist DO [Physician] - (4 weeks) Diet: Carb Consistent or DM2 Diet Texture: Easy to Chew Addtl Attending Provider Instructions: Try to remove trach and PEG in the next 4 weeks Pending Studies at Discharge: No Stand-Alone Forms: [facility] Skilled Items Patient informed of condition?: Yes DNR: No Discharge Level of Care: Acute rehab Communicable Disease: No Discharge Prognosis: Improving Lines: None Urinary Catheter: No Medications and DC Order Prescriptions: New Eliquis 5 mg tablet 10 mg PO BID Qty: 30 RF: 0 Continued atorvastatin 20 mg tablet 20 mg PO QAM RF: 0 albuterol sulfate 2.5 mg /3 mL (0.083 %) solution for nebulization 2.5 mg inhalation Q4H PRN (Reason: Wheezing) RF: 0 allopurinol 100 mg tablet 100 mg PO DAILY RF: 0 fenofibrate micronized 200 mg capsule 200 mg PO DAILY RF: 0 aspirin 81 mg tablet,delayed release (DR/EC) 81 mg PO DAILY RF: 0 triamcinolone acetonide 0.1 % cream 1 applic TOPICAL BID RF: 0 levothyroxine 25 mcg tablet 25 mcg PO QAM RF: 0 metformin 1,000 mg tablet 1,000 mg PO BIDM RF: 0 montelukast 10 mg tablet 10 mg PO DAILY RF: 0 Flovent HFA 220 mcg/actuation HFA aerosol inhaler 2 puff INHALATION BID RF: 0 albuterol sulfate 90 mcg/actuation HFA aerosol inhaler 2 puff INHALATION .Q4-6HRS PRN (Reason: Shortness Of Breath Or Wheezing) RF: 0 Levemir FlexTouch U-100 Insuln 100 unit/mL (3 mL) insulin pen 24 unit SUBCUT DAILY RF: 0 Jardiance 25 mg tablet 25 mg PO DAILY RF: 0 Trulicity 0.75 mg/0.5 mL pen injector 0.75 mg SUBCUT WK RF: 0 Discharge Orders: Discharge Order (Routine); Ordered 01/20/21 Ordered By: Benja Fuchs/Other Patient Handouts: High Blood Sugar (Hyperglycemia), Managing Type 2 Diabetes, Managing Diabetes: The A1C Test Admission Data Admit Date/Time: 12/28/20 19:48 Attending Provider: Benja Proctor Admit Provider: Luciano Olivo Primary Care Provider: Sarbjit Carballo Other Providers: Adam Lao ; Perla,Specialty [place] ; Luciano Olivo ; Ian Duvall ; Boo Sellers ; Isidra Lindquist ; Estefany Proctor ; Fabian Tidwell ; Tawanda Tran ; Fernie Guillen I. ; David Pedersen II ; Juany Stroud ; Maco Francisco Other Interventions: Discharge Summary Assessment (RN) Last Done: 01/18/21 11:55
[2021-01-20] MEDS: FAMOTIDINE 20 MG TAB PO SCH (10:21)
[2021-01-20] MEDS: allopurinoL 100 MG TAB PO SCH (10:23)
[2021-01-20] MEDS: MULTI VIT W/MINERALS LIQUID 15 ML UDP NG SCH (10:27)
[2021-01-20] MEDS: ASPIRIN 81 MG CHEW PO SCH (10:32)
[2021-01-20] MEDS: INSULIN ASPART 100 UNITS/ML 3 ML PEN SC SCH ×4 (10:34→22:19)
[2021-01-20] MEDS: ENOXAPARIN 80 MG/0.8 ML SYR SQ SCH (10:58)
[2021-01-20] MEDS: ATORVASTATIN 20 MG TAB PO SCH (12:21)
[2021-01-20] MEDS: APIXABAN 5 MG TABLET PO SCH ×2 (12:21→22:10)
--- NOTE | 2021-01-20 14:19 | Hospitalist Progress Note ---
Date of Service January 20, 2021 Assessment & Plan (1) Acute hypoxemic respiratory failure: Secondary to asthma exacerbation secondary to severe COVID-19 pneumonia, MRSA Pneumonia Initial CXR: Multifocal bilateral airspace opacities. This likely represents a viral pneumonia. Was on high flow O2 initially and failed to maintain saturation s/p mechanical intubation 12/30/20 [facility] Vent Day # 8 , status post tracheotomy on 01/07/2021 Repeat chest x-ray did not show any improvement of the bilateral multilobar pneumonia Status post bronchoscopy with clearing of bronchial secretion Status post tracheotomy on 01/07/2021 [facility] on DC today DVT in 2 right peroneal veins Started on Lovenox subcu twice daily Superimposed bacterial pneumonia blood cultures: negative Sputum culture: MRSA Received Ceftriaxone IV x 2 days transitioned to Ceftaroline IV Stop 01/19 White counts keep elevated and she remains febrile White count has been improving but he still has high temperature 37.8 Her white count remains elevated and still febrile Sputum has been sent for reculture and in the meantime we will continue intravenous Ceftaroline for a total of 14 days No more fever and white count has been improving Continue current antibiotic to finish a total course of 14 days Ceftraroline discontinued COVID-19 pneumonia Stop Decadron Day [address] Duvall's recommendation, basing on NIH guideline Convalescent plasma given As above-finished the course of antiviral, convalescent plasma and steroid She can be taken off isolation from Covid 19 as per infectious disease UTI E coli Ceftriaxone IV x 2 days transitioned to Ceftaroline IV day #14, stop date January 19 Hypertension Monitor ARF secondary to illness Resolved Diarrhea secondary to illness Resolved hyperlipidemia on statin Rx DM2 insulin requiring, suboptimal control asked off recent outpatient hemoglobin A1c of 12.28 November 2020 Glycemic pharmacy consult Leukocytosis-Resolved DVT prophylaxis. Heparin Subcu Lovenox SC for DVT Prophylaxis Full code Overall prognosis improving Case was Discussed with the patient's daughter in detail on 01/05/2021 Conference call with her daughter and the patient was done Gradual improvement of her condition-We will need placement on discharge, Keanu Baeza this week Failed Swallow eval, PEG Placed 01/18, Pulm Placed new Trach, Patient passed a swallow eval assed Acute Rehab Tomorrow now Labs checked ROS-No Headache, No Visual Changes, No Nausea, No Vomiting, No Fever, No Chills, No Neck Pain or Stiffness, No Chest Pain, No Palpitations, No SOB, No WILLIAM, No Cough, No Sputum, No Wheezing, No Abdominal Pain, No Diarrhea, No Hematemesis, No Hemoptysis, No Unexpected Weight Loss, No Flank pain, No Melena, No Hematochezia, No Frequency, No Urgency, No Burning, No Hematuria, No Rashes, No Diaphoresis. Appetite is Normal Physical Exam Gen-Awake Alert, NAD, Afebrile Head-NCAT, EOMI, PERRLA, Anicteric Sclera, Bruising under eyes Neck-Supple, Trach, No JVD, No Thyromegaly, No Masses, No LAD, No Bruits Lungs-Clear to Auscultation Bilaterally, No Rales, No Rhonchi, No Wheezing, No Crepitus Chest-No S4, +S1, +S2, No S3, No Murmurs, No Rubs, No Gallops, No Ectopy Abdomen-Soft, Bowel Sounds Present, Non Tender, Non Distended, No Hepatomegaly, No Splenomegaly, No Palpable Masses, No Rebound, No Rigidity, No Guarding Musculoskeletal-Full Range of Motion Bilaterally, No CVAT Extremities-No Cyanosis, No Clubbing, No Edema Nuero-Cranial Nerves II-XII grossly intact, Motor WNL, DTRs WNL, Strength WNL, Non Focal Psych-Pleasant Admission and Anticipated Discharge Date Admission Date: December 28, 2020 Results & Data Results & Data ([facility]) Vital Signs (Past 12 Hours) Vital Signs Temp Pulse Pulse Resp BP BP Pulse Ox 01/20/21 12:06 36.9 C 120 H 20 120/78 95 01/20/21 08:27 37.1 C 110 H 20 131/93 97 01/20/21 07:30 95 H 01/20/21 04:27 37.2 C 98 H 15 122/78 95
[2021-01-20] MEDS ORDERED: SODIUM CHLORIDE 0.9% 1000ML 1,000 ML IV ONE (16:05)
--- NOTE | 2021-01-20 16:14 | Electrocardiogram Report ---
Test Reason : Blood Pressure : / mmHG Vent. Rate : 113 BPM Atrial Rate : 113 BPM P-R Int : 132 ms QRS Dur : 076 ms QT Int : 316 ms P-R-T Axes : 012 029 101 degrees QTc Int : 433 ms Sinus tachycardia Poor R wave progression, consider anterior ND vs. lead placement vs. LVH Abnormal ECG When compared with ECG of 28-DEC-2020 17:16, Nonspecific T wave abnormality now evident in Lateral leads Confirmed by Dejon Adam ([id number]) on 01/20/2021 4:14:24 PM Referred By: REFERRED SELF Confirmed By:Dejon Adam
[2021-01-20] MEDS: INSULIN GLARGINE SOLOSTAR 100 UNITS/ML 3 ML PEN SC SCH (22:19)
[2021-01-20] MEDS ORDERED: OPTIRAY 320 125ml IV ONE (22:21)
[2021-01-21] MEDS: TUBE FEEDING WATER FLUSH OG SCH ×4 (00:18→12:13)
[2021-01-21] MEDS: LEVOTHYROXINE SODIUM 25 MCG TABLET PO SCH (06:06)
[2021-01-21 06:16] LABS: Hematocrit (blood only) 30.7 % (37-47); Hemoglobin 9.5 g/dL (12.0-16.0); Mean Corpuscular Hemoglobin 25.4 pg (25-34); Mean Corpuscular Hgb Conc 30.9 g/dL (32-36); Mean Corpuscular Volume 82.1 fL (80-100); Mean Platelet Volume 10.2 fL (7.4-10.4); Platelet Count 287 K/uL (130-400); RDW Coefficient of Variation 15.3 % (11.5-14.5); RDW Standard Deviation 44.6 fL (36.4-46.3); Red Blood Count 3.74 M/uL (4.2-5.4); White Blood Count 6.02 K/uL (4.8-10.8)
[2021-01-21 06:50] LABS: BUN Creatinine Ratio 22.6 (10-20); Creatinine Clr Calc Pharmacy 121.3 ml/min; Est GFR (African American) 122.3; Est GFR (Non-African American) 105.5; Potassium 4.1 mmol/L (3.5-5.1)
--- NOTE | 2021-01-21 07:44 | CT Scan Report ---
CT ANGIOGRAM OF THE CHEST CLINICAL HISTORY: Atypical chest pain. Possible pulmonary embolism. COMPARISON STUDY: Chest x-ray dated 01/12/2021 TECHNIQUE: Following the IV administration of 120 mL of Optiray-320, CT angiogram of the thorax was p erformed from the thoracic inlet to the lung bases utilizing the pulmonary embolus protocol. Images a re reviewed in the axial, sagittal, and coronal planes. IV contrast was administered without complica tion. MIP imaging was performed. A dose lowering technique was utilized adhering to the principles o f ALARA. CT DOSE: 446.57 mGy.cm FINDINGS: Within the upper abdomen, a gastrostomy tube is visualized. The spleen appears prominent. There are mildly enlarged mediastinal lymph nodes, likely reactive. There was no evidence of thoracic aortic dilatation. Evaluation of the pulmonary arteries is limited due to respiratory motion artifact. No central emboli are visualized No pleural effusions are visualized. There is an indwelling tracheostomy tube. There are multifocal airspace opacities with a subpleural p redominance. The findings are suggestive of a multifocal pneumonia. There is elevation of the right hemidiaphragm There is a left subclavian venous stenosis. IMPRESSION: 1. Multifocal airspace opacities consistent with a multifocal pneumonia 2. No evidence of acute pulmonary embolism given the technical limitations of this examination 3. Mediastinal lymphadenopathy, statistically reactive 4. Left subclavian vein stenosis ACT 112: Negative or not required by law. Electronically signed by: Ruel Barnett M.D. 01/21/2021 7:43 AM
[2021-01-21] MEDS: APIXABAN 5 MG TABLET PO SCH (07:47)
[2021-01-21] MEDS: MULTI VIT W/MINERALS LIQUID 15 ML UDP NG SCH (07:48)
[2021-01-21] MEDS: ATORVASTATIN 20 MG TAB PO SCH (07:48)
[2021-01-21] MEDS: FAMOTIDINE 20 MG TAB PO SCH (07:48)
[2021-01-21] MEDS: allopurinoL 100 MG TAB PO SCH (07:48)
[2021-01-21] MEDS: ASPIRIN 81 MG CHEW PO SCH (07:58)
--- NOTE | 2021-01-21 08:18 | Hospitalist Progress Note ---
Date of Service January 21, 2021 Assessment & Plan (1) Acute hypoxemic respiratory failure: Secondary to asthma exacerbation secondary to severe COVID-19 pneumonia, MRSA Pneumonia Initial CXR: Multifocal bilateral airspace opacities. This likely represents a viral pneumonia. Was on high flow O2 initially and failed to maintain saturation s/p mechanical intubation 12/30/20 [facility] Vent Day # 8 , status post tracheotomy on 01/07/2021 Repeat chest x-ray did not show any improvement of the bilateral multilobar pneumonia Status post bronchoscopy with clearing of bronchial secretion Status post tracheotomy on 01/07/2021 [facility] on DC today DVT in 2 right peroneal veins Started on Lovenox subcu twice daily Superimposed bacterial pneumonia blood cultures: negative Sputum culture: MRSA Received Ceftriaxone IV x 2 days transitioned to Ceftaroline IV Stop 01/19 White counts keep elevated and she remains febrile White count has been improving but he still has high temperature 37.8 Her white count remains elevated and still febrile Sputum has been sent for reculture and in the meantime we will continue intravenous Ceftaroline for a total of 14 days No more fever and white count has been improving Continue current antibiotic to finish a total course of 14 days Ceftraroline discontinued COVID-19 pneumonia Stop Decadron Day [address] Duvall's recommendation, basing on NIH guideline Convalescent plasma given As above-finished the course of antiviral, convalescent plasma and steroid She can be taken off isolation from Covid 19 as per infectious disease UTI E coli Ceftriaxone IV x 2 days transitioned to Ceftaroline IV day #14, stop date January 19 Hypertension Monitor ARF secondary to illness Resolved Diarrhea secondary to illness Resolved hyperlipidemia on statin Rx DM2 insulin requiring, suboptimal control asked off recent outpatient hemoglobin A1c of 12.28 November 2020 Glycemic pharmacy consult Leukocytosis-Resolved DVT prophylaxis. Heparin Subcu Lovenox SC for DVT Prophylaxis Full code Overall prognosis improving Case was Discussed with the patient's daughter in detail on 01/05/2021 Conference call with her daughter and the patient was done Gradual improvement of her condition-We will need placement on discharge, Ke[facility] Baeza this week Failed Swallow eval, PEG Placed 01/18, Pulm Placed new Trach, Patient then passed a repeat swallow eval 01/19 Acute Rehab Today Labs checked ROS-No Headache, No Visual Changes, No Nausea, No Vomiting, No Fever, No Chills, No Neck Pain or Stiffness, No Chest Pain, No Palpitations, No SOB, No WILLIAM, No Cough, No Sputum, No Wheezing, No Abdominal Pain, No Diarrhea, No Hematemesis, No Hemoptysis, No Unexpected Weight Loss, No Flank pain, No Melena, No Hematochezia, No Frequency, No Urgency, No Burning, No Hematuria, No Rashes, No Diaphoresis. Appetite is Normal Physical Exam Gen-Awake Alert, NAD, Afebrile Head-NCAT, EOMI, PERRLA, Anicteric Sclera, Bruising under eyes Neck-Supple, Trach, No JVD, No Thyromegaly, No Masses, No LAD, No Bruits Lungs-Clear to Auscultation Bilaterally, No Rales, No Rhonchi, No Wheezing, No Crepitus Chest-No S4, +S1, +S2, No S3, No Murmurs, No Rubs, No Gallops, No Ectopy Abdomen-Soft, Bowel Sounds Present, Non Tender, Non Distended, No Hepatomegaly, No Splenomegaly, No Palpable Masses, No Rebound, No Rigidity, No Guarding Musculoskeletal-Full Range of Motion Bilaterally, No CVAT Extremities-No Cyanosis, No Clubbing, No Edema Nuero-Cranial Nerves II-XII grossly intact, Motor WNL, DTRs WNL, Strength WNL, Non Focal Psych-Pleasant Admission and Anticipated Discharge Date Admission Date: December 28, 2020 Results & Data Results & Data ([facility]) Vital Signs (Past 12 Hours) Vital Signs Temp Pulse Pulse Resp BP BP Pulse Ox 01/21/21 07:58 36.6 C 104 H 18 116/74 93 01/21/21 03:39 37 C 102 H 16 133/80 94 01/20/21 22:15 125 H
[2021-01-21] MEDS: INSULIN ASPART 100 UNITS/ML 3 ML PEN SC SCH ×2 (09:20→12:13)
== END 2021-01-21 14:44 | DRG 3 ==
LOC: ED 17:05 → SUATTDRO 19:48 → 2E 19:48 → 2W 01-15 18:26

== ENCOUNTER 2024-06-08 15:01 | Inpatient (IN) ==
[2024-06-08 15:44] LABS: Appearance Urine Clear (Clear); Bilirubin Urine Negative (Negative); Blood Urine Negative (Negative); Color Urine Yellow; Glucose Urine UA 3+ (Negative); Ketones Urine Negative (Negative); Leukocyte Esterase Urine Negative (Negative); Nitrite Urine Negative (Negative); Protein Urine Negative (Negative); Specific Gravity Urine 1.031 (1.000-1.030); Urobilinogen Urine Negative (Negative); pH Urine 6.5 (4.5-7.5)
[2024-06-08 16:10] LABS: Basophils # (auto) 0.04 K/uL (0.00-0.20); Basophils % (auto) 0.4 %; Eosinophils # (auto) 0.41 K/uL (0.00-0.50); Eosinophils % (auto) 4.3 %; Hematocrit (blood only) 41.4 % (37.0-47.0); Immature Granulocytes # (auto) 0.04 K/uL (0.01-0.20); Immature Granulocytes % (auto) 0.4 %; Lymphocytes % (auto) 22.2 %; Mean Corpuscular Hemoglobin 25.8 pg (25.0-34.0); Mean Corpuscular Hgb Conc 31.4 g/dL (32.0-36.0); Mean Corpuscular Volume 82.3 fL (80.0-100.0); Monocytes % (auto) 5.3 %; Neutrophils # (auto) 6.39 K/uL (1.40-6.50); Neutrophils % (auto) 67.4 %; Platelet Count 270 K/uL (130-400); RDW Standard Deviation 41.5 fL (36.4-46.3); Red Blood Count 5.03 M/uL (4.20-5.40); White Blood Count 9.48 K/ul (4.8-10.8)
[2024-06-08 16:25] LABS: Albumin Globulin Ratio 1.6 (0.9-2); Albumin Level 4.5 gm/dl (3.4-5.0); BUN Creatinine Ratio 25.6 (10-20); Bilirubin,Total 0.3 mg/dl (0.2-1.0); Calcium 9.4 mg/dl (8.6-10.3); Creatinine Clr Calc Pharmacy 53.5 ml/min; Est GFR (African American) 56.3 ml/min; Est GFR (Non-African American) 48.6 ml/min; Globulin 2.9 gm/dl (2.5-4.0); Magnesium 1.9 mg/dl (1.7-2.4); Total Protein 7.4 gm/dl (6.0-8.3)
[2024-06-08 16:30] LABS: Troponin I High Sensitivity 5.2 pg/ml (0-14)
[2024-06-08 16:33] LABS: Partial Thromboplastin Time 26 Seconds (21-31); Prothrombin Time 10.5 Seconds (9.0-12.0)
[2024-06-08 16:40] LABS: Thyroid Stimulating Hormone 2.874 uIu/ml (0.300-4.500)
--- NOTE | 2024-06-08 18:23 | Emergency Department Note ---
Impression & Plan Bilateral leg weakness, Bilateral leg numbness, Bladder incontinence ED Provider Note NAME: SEVERO MULLEN AGE: 59 SEX: Female INFORMANT: Patient ED PROVIDER(S): Elgin Inman MD CHIEF COMPLAINT: Leg weakness PLAN: Disposition: Admitted Outpatient prescription management: none Referral: none MEDICAL DECISION MAKING: Patient presented because of leg weakness. Primary clinic was concerned due to incontinence, decreased rectal tone, decreased reflexes and bilateral symmetric leg weakness. Patient had no abdominal pain or back pain. Patient does have symmetric findings. I did was able to elicit very slight patellar reflexes bilaterally. She had unremarkable blood work. Patient had CT imaging of the thoracic and lumbar spine performed. Patient had no acute bony pathology noted on spine imaging. Given the neurologic findings on examination MR imaging was felt to be most appropriate. MR imaging with and without contrast of the thoracic and lumbar spines were performed given the fact that the patient's symptoms are symmetric in the bilateral lower extremities. Currently that test has been completed but results are pending. In light of the neurologic symptoms the patient will likely need further workup and management in the hospital. I did discuss this with the patient and . Patient is in agreement. [facility] Dr[facility] Heredia. Patient was evaluated in the ER and admitted for further management Care/management discussed with: entertainment manager Level of care consideration(s): After review of the information above and other included data, I feel the patient requires escalation of care to admission Triage Nursing notes: reviewed and agree them. Vital Signs: reviewed and remarkable for no significant abnormalities Additional History obtained from: none Chronic Medical/Social Conditions affecting care: Diabetes Prior/ Outside/ External records reviewed: none Differential Diagnosis: MS, metastatic disease, cord compression, discitis, sciatica, cauda equina, infection, as well as other pathologies. Diagnostics, independently interpreted by me: ECG: none Cardiac Monitoring: Cardiac monitoring ordered by me: The patient was placed on continuous cardiac monitoring and observed. It revealed a normal sinus rhythm at 88 beats per minute without ectopy or evidence of dysrhythmia. Medical decision rules: none Imaging studies: CT scan of the thoracic and lumbar spine reveal no significant bony pathology. There is degenerative disc disease noted. No significant canal compromise noted per radiology. HPI: 59 year old Female arrives for evaluation of bilateral leg weakness. This started about 10 days ago and is worsening. The patient also notes the following associated symptoms, bowel bladder incontinence, bilateral leg numbness. The patient has found no relieving factors. Current pain is rated as 0/10. No prior history of the same. Patient denies any trauma. Patient was seen in primary clinic and they were concerned due to significant weakness on examination as well as the numbness. Referred to the ER for further workup pt denies LOC, headache, fevers, chills, diaphoresis, visual changes, neck pain, chest pain, breathing difficulties, nausea, vomiting, abdominal pain, back pain, melena, hematochezia, urinary symptoms, lymphadenopathy, rash, or other complaints. PAST MEDICAL HISTORY: See Below, diabetes PAST SURGICAL HISTORY: See Below, SOCIAL HISTORY: See Below, HOME MEDICATIONS: See Below ALLERGIES: See Below VITALS: See Below PHYSICAL EXAMINATION: GENERAL: Awake, alert, well-appearing, in no distress HENT: Normocephalic, atraumatic. Oropharynx unremarkable. EYES: Normal conjunctiva. Sclera non-icteric. NECK: Inspection normal. Non-tender. Supple. No nuchal rigidity. FROM. No masses. RESPIRATORY: Clear to auscultation. No wheezes. No rales. Normal respiratory effort. CARDIAC: Normal rate. Normal rhythm. No murmurs. No rubs. Extremities warm and well perfused. Pulses equal. No JVD. GI: Soft, non-distended. No tenderness to palpation. No rebound or guarding. No masses. RECTAL: Deferred. MUSCULOSKELETAL: Atraumatic. Chest examination reveals no tenderness. The back is symmetrical on inspection without obvious abnormality. There is no CVA tenderness to palpation. No joint edema. LOWER EXTREMITIES: Calves are equal size bilaterally and non-tender. No edema. No discoloration. NEURO: Normal sensorium. There is decree sensation in the bilateral lower extremities and saddle anesthesia. 1+ symmetric patellar reflexes. Unable to elicit Achilles reflexes. She drifts in her lower extremities bilaterally. SKIN: No rash or jaundice noted. PROCEDURES: none CRITICAL CARE: none OBSERVATION NOTE: none Past Med/Surg History Problem List (Updated 06/08/24 @ 18:23 by Elgin Inman MD) Bladder incontinence (Acute) Bilateral leg numbness (Acute) Bilateral leg weakness (Acute) Tracheostomy care Hyperactive pharyngeal gag reflex Hypoalbuminemia Hypomagnesemia Asthma Mucoid impaction of bronchi Diabetes (Chronic) Medical History Tracheostomy care Social History Smoking Status: Never smoker Hx Alcohol Use: No Hx Substance Use: No Preferred Language: Kiswahili Communication Ability: Effective Flight [employer] Required: No Beliefs That Will Affect Care: None Current Living Situation: Spouse Feels Safe at Home: Yes Assistive Devices: Oxygen - Continuous Allergies Allergies Allergy/AdvReac Type Severity Reaction Status Date / Time lisinopril Allergy Unknown Unknown Verified 12/28/20 18:37 meperidine Allergy Unknown Hives Verified 12/28/20 18:36 Penicillins Allergy Unknown Could not Verified 12/28/20 18:37 use arm after shot Home Meds Home Medications Medication Instructions Recorded Confirmed allopurinol 100 mg tablet 100 mg PO DAILY 12/28/20 06/08/24 aspirin 81 mg tablet,delayed 81 mg PO DAILY 12/28/20 06/08/24 release atorvastatin 20 mg tablet 20 mg PO QAM 12/28/20 06/08/24 dulaglutide 0.75 mg/0.5 mL 1.5 mg subcut WK 12/28/20 06/08/24 subcutaneous pen injector (Trulicity) empagliflozin 25 mg tablet 25 mg PO DAILY 12/28/20 06/08/24 (Jardiance) fenofibrate micronized 200 mg 67 mg PO DAILY 12/28/20 06/08/24 capsule levothyroxine 25 mcg tablet 25 mcg PO QAM 12/28/20 06/08/24 metformin 1,000 mg tablet 1,000 mg PO BIDM 12/28/20 06/08/24 montelukast 10 mg tablet 10 mg PO DAILY 12/28/20 06/08/24 triamcinolone acetonide 0.1 % 1 applic topical BID PRN Other 12/28/20 06/08/24 topical cream fluticasone propionate 230 2 puff inhalation BID 06/08/24 06/08/24 mcg-salmeterol 21 mcg/actuation HFA inhaler (Advair HFA) levalbuterol tartrate 45 1 puff inhalation BID PRN Other 06/08/24 06/08/24 mcg/actuation aerosol inhaler levocetirizine 5 mg tablet 5 mg PO DAILY 06/08/24 06/08/24 metoprolol succinate 25 mg 25 mg PO DAILY 06/08/24 06/08/24 tablet,extended release 24 hr omeprazole 20 mg capsule,delayed 20 mg PO BID 06/08/24 06/08/24 release topiramate 50 mg tablet 50 mg PO BID 06/08/24 06/08/24 Results & Data (ED) Vital Signs Vital Signs - 24 hr 06/08/24 15:13 06/08/24 16:41 06/08/24 16:58 Temperature 36.8 C Temperature Source Oral Pulse Rate 99 H 94 H Pulse Rate [Left Finger] 93 H Pulse Rhythm [Left Finger] Regular Pulse Strength [Left Finger] Normal Respiratory Rate 18 18 Respiratory Effort / Characteristics Non-Labored Spontaneous Non-Labored Spontaneous Respiratory Depth Normal Normal Respiratory Pattern Regular Regular Blood Pressure 128/75 Blood Pressure [Right Arm] 148/96 H Blood Pressure Mean 92 Blood Pressure Mean [Right Arm] 113 Blood Pressure Position [Right Arm] Sitting Pulse Oximetry 96 98 Oxygen Delivery Method Room Air Room Air Sepsis Recent Fever Within 48 Hours No Sepsis New/Unexplained Change in Mental Status N/A Sepsis Action Taken by Nursing No Action Required 06/08/24 18:06 06/08/24 20:00 06/08/24 22:00 Temperature Temperature Source Pulse Rate Pulse Rate [Left Finger] 88 87 90 Pulse Rhythm [Left Finger] Pulse Strength [Left Finger] Respiratory Rate 22 26 H Respiratory Effort / Characteristics Respiratory Depth Respiratory Pattern Blood Pressure Blood Pressure [Right Arm] 120/77 123/80 125/83 Blood Pressure Mean Blood Pressure Mean [Right Arm] 91 94 97 Blood Pressure Position [Right Arm] Pulse Oximetry 95 98 96 Oxygen Delivery Method Room Air Sepsis Recent Fever Within 48 Hours Sepsis New/Unexplained Change in Mental Status Sepsis Action Taken by Nursing Laboratory Data 06/08/24 15:50 06/08/24 15:50 Lab Results 06/08/24 06/08/24 Range/Units 15:30 15:50 WBC 9.48 (4.8-10.8) K/ul RBC 5.03 (4.20-5.40) M/uL Hgb 13.0 (12.0-16.0) g/dl Hct 41.4 (37.0-47.0) % MCV 82.3 (80.0-100.0) fL MCH 25.8 (25.0-34.0) pg MCHC 31.4 L (32.0-36.0) g/dL RDW Std Deviation 41.5 (36.4-46.3) fL RDW Coeff of Mynor 14.0 (11.5-14.5) % Plt Count 270 (130-400) K/uL MPV 11.0 (9.4-12.4) fL Immature Gran % (Auto) 0.4 % Neut % (Auto) 67.4 % Lymph % (Auto) 22.2 % [place] % (Auto) 5.3 % Eos % (Auto) 4.3 % Baso % (Auto) 0.4 % Neut # (Auto) 6.39 (1.40-6.50) K/uL Lymph # (Auto) 2.10 (1.20-3.40) K/uL [place] # (Auto) 0.50 (0.11-0.59) K/uL Eos # (Auto) 0.41 (0.00-0.50) K/uL Baso # (Auto) 0.04 (0.00-0.20) K/uL Immature Gran # (Auto) 0.04 (0.01-0.20) K/uL PT 10.5 (9.0-12.0) Seconds INR 1.0 (0.9-1.1) APTT 26 (21-31) Seconds PTT Ratio 1.0 Sodium 142 (136-145) mmol/L Potassium 4.0 (3.5-5.1) mmol/L Chloride 108 H (98-107) mmol/L Carbon Dioxide 24 (21-32) mmol/L Anion Gap 10 (3-11) BUN 31 H (6-23) mg/dl Creatinine 1.21 H (0.6-1.2) mg/dl Est Cr Clr Drug Dosing 53.5 ml/min Est GFR ( Amer) 56.3 ml/min Est GFR (Non-Af Amer) 48.6 ml/min BUN/Creatinine Ratio 25.6 H (10-20) Glucose 198 H (70-99(Fasting)) mg/dl Calcium 9.4 (8.6-10.3) mg/dl Magnesium 1.9 (1.7-2.4) mg/dl Total Bilirubin 0.3 (0.2-1.0) mg/dl AST 26 (13-39) U/L ALT 20 (7-52) U/L Alkaline Phosphatase 85 (34-104) U/L Troponin I High Sens 5.2 (0-14) pg/ml Total Protein 7.4 (6.0-8.3) gm/dl Albumin 4.5 (3.4-5.0) gm/dl Globulin 2.9 (2.5-4.0) gm/dl Albumin/Globulin Ratio 1.6 (0.9-2) TSH 2.874 (0.300-4.500) uIu/ml Urine Color Yellow Urine Appearance Clear (Clear) Urine pH 6.5 (4.5-7.5) Ur Specific Jean 1.031 H (1.000-1.030) Urine Protein Negative (Negative) Urine Glucose (UA) 3+ H (Negative) Urine Ketones Negative (Negative) Urine Blood Negative (Negative) Urine Nitrite Negative (Negative) Urine Bilirubin Negative (Negative) Urine Urobilinogen Negative (Negative) Ur Leukocyte Esterase Negative (Negative) Administered Medications Discontinued Medications Gadobutrol (Gadobutrol 65ml Vial) 8 ml IV ONCE ONE Stop: 06/08/24 21:05 Last Admin: 06/08/24 21:05 Dose: 8 ml Documented By: CPL Imaging Data Radiologist's Impression: Lumbar Spine CT 06/08/24 16:03 CT SCAN OF THE LUMBAR SPINE WITHOUT IV CONTRAST CLINICAL HISTORY: Lower extremity numbness. Urinary incontinence. COMPARISON STUDY: Abdominal CT dated 11/30/2022. TECHNIQUE: CT scan of the lumbar spine is performed from the lower thoracic spine to the sacrum. Images are reviewed in the axial, sagittal, and coronal planes. IV contrast was not administered for this examination. A dose lowering technique was utilized adhering to the principles of ALARA. FINDINGS: The skeletal structures are osteopenic. There is no evidence of acute fracture or malalignment. Vertebral body height and alignment are maintained. Anterior and lateral marginal osteophytes are seen throughout. The transverse and spinous processes appear intact. There is no spondylolysis. No lytic or blastic lesion is seen. Facet arthropathy is noted in the lower lumbar region. Rfdxqmhr-jq-uadwgu disc space narrowing with endplate sclerosis is seen at all lumbar levels between L1-L2 and L4-L5. Posterior disc osteophyte complexes are seen at all lumbar levels. There is fvzz-rt-kfblxlyj central canal stenosis at L1-L2. There is no CT evidence of high-grade central canal stenosis at the remaining lumbar levels. Lateral disc bulge is seen bilaterally at L3-L4 and L4- L5. This contributes to bilateral subarticular stenosis and may abut the exiting bilateral L3 and L4 nerve roots. There is no CT evidence of high-grade neural foraminal stenosis throughout the lumbar region. The visualized sacrum and bony pelvis appear intact. Degenerative sclerosis is noted in the sacral iliac joints. The paraspinous soft tissues are within normal limits. There is a punctate nonobstructing right renal calculus. No retroperitoneal lymphadenopathy is seen. IMPRESSION: 1. No acute bony abnormality is identified involving the lumbar spine. 2. Osteopenia and degenerative change as above. ACT 112: Negative or not required by law. Dictated: 06/08/2024 5:32 PM Transcribed: 06/08/2024 5:53 PM Braulio [id number] [email or web address] Electronically signed by: Sancho Frye M.D. 06/08/2024 6:[address] 06/08/24 16:03 CT SCAN OF THE THORACIC SPINE WITHOUT IV CONTRAST CLINICAL HISTORY: Lower extremity numbness. Urinary incontinence. COMPARISON STUDY: Chest CT dated 01/21/2021. TECHNIQUE: CT scan of the thoracic spine is performed from the lower cervical spine to the upper lumbar spine. Images are reviewed in the axial, sagittal, and coronal planes. IV contrast was not administered for this examination. A dose lowering technique was utilized adhering to the principles of ALARA. CT DOSE: 2015.75 mGy.cm FINDINGS: The skeletal structures are osteopenic. There is no evidence of fracture or malalignment involving the thoracic spine. No lytic or blastic lesion is seen. Small anterior osteophytes are seen throughout. The transverse and spinous processes appear intact. There is multilevel degenerative disc space narrowing. There is no CT evidence of large disc herniation or high-grade central canal stenosis throughout the thoracic region. The paraspinous soft tissues are within normal limits. The posterior ribs are intact as visualized. There is a punctate nonobstructing right renal calculus. Scarring/atelectasis is noted at the lung bases. IMPRESSION: No acute bony abnormality is seen involving the thoracic spine. ACT 112: Negative or not required by law. Dictated: 06/08/2024 5:54 PM Transcribed: 06/08/2024 6:02 PM Braulio [id number] [email or web address] Electronically signed by: Sancho Frye M.D. 06/08/2024 6:31 PM Discharge Plan Visit Data Chief Complaint: Leg Injury/Pain Stated Complaint: NUMBNESS IN LEGS, REF BY DOC ED Provider: Elgin Inman Discharge Problem: Bilateral leg weakness, Bilateral leg numbness, Bladder incontinence Forms Stand Alone Forms: My [facility] [address] [email or web address] Prescriptions Prescriptions: No Action atorvastatin 20 mg tablet 20 mg PO QAM allopurinol 100 mg tablet 100 mg PO DAILY fenofibrate micronized 200 mg capsule 67 mg PO DAILY aspirin 81 mg tablet,delayed release (DR/EC) 81 mg PO DAILY triamcinolone acetonide 0.1 % cream 1 applic TOPICAL BID PRN (Reason: Other) Rx Instructions: APPLY DIRECTED TO AFFECTED AREA(S) levothyroxine 25 mcg tablet 25 mcg PO QAM Rx Instructions: TAKE THIS MEDICATION AT LEAST 30 MINUTES BEFORE BREAKFAST OR ANY OTHER MEDICATIONS metformin 1,000 mg tablet 1,000 mg PO BIDM Rx Instructions: TAKE THIS MEDICATION WITH MORNING AND EVENING MEALS montelukast 10 mg tablet 10 mg PO DAILY Jardiance 25 mg tablet 25 mg PO DAILY Trulicity 0.75 mg/0.5 mL pen injector 1.5 mg SUBCUT WK Rx Instructions: saturday/saturday ADMINISTER ONCE A WEEK omeprazole 20 mg capsule,delayed release(DR/EC) 20 mg PO BID metoprolol succinate 25 mg tablet extended release 24 hr 25 mg PO DAILY topiramate 50 mg tablet 50 mg PO BID fluticasone propion-salmeterol [Advair HFA] 230-21 mcg/actuation HFA aerosol inhaler 2 puff INHALATION BID levocetirizine 5 mg tablet 5 mg PO DAILY levalbuterol tartrate 45 mcg/actuation HFA aerosol inhaler 1 puff INHALATION BID PRN (Reason: Other) Referrals Referrals: Sarbjit Carballo MD [Primary Care Provider] -
--- NOTE | 2024-06-08 18:33 | CT Scan Report ---
CT SCAN OF THE LUMBAR SPINE WITHOUT IV CONTRAST CLINICAL HISTORY: Lower extremity numbness. Urinary incontinence. COMPARISON STUDY: Abdominal CT dated 11/30/2022. TECHNIQUE: CT scan of the lumbar spine is performed from the lower thoracic spine to the sacrum. Imag es are reviewed in the axial, sagittal, and coronal planes. IV contrast was not administered for this examination. A dose lowering technique was utilized adhering to the principles of ALARA. FINDINGS: The skeletal structures are osteopenic. There is no evidence of acute fracture or malalignm ent. Vertebral body height and alignment are maintained. Anterior and lateral marginal osteophytes ar e seen throughout. The transverse and spinous processes appear intact. There is no spondylolysis. No lytic or blastic lesion is seen. Facet arthropathy is noted in the lower lumbar region. Xxbctwzq-ic-a evere disc space narrowing with endplate sclerosis is seen at all lumbar levels between L1-L2 and L4- L5. Posterior disc osteophyte complexes are seen at all lumbar levels. There is ifbv-hp-rwxofbvu cent ral canal stenosis at L1-L2. There is no CT evidence of high-grade central canal stenosis at the roma ining lumbar levels. Lateral disc bulge is seen bilaterally at L3-L4 and L4-L5. This contributes to b ilateral subarticular stenosis and may abut the exiting bilateral L3 and L4 nerve roots. There is no CT evidence of high-grade neural foraminal stenosis throughout the lumbar region. The visualized sacr um and bony pelvis appear intact. Degenerative sclerosis is noted in the sacral iliac joints. The par aspinous soft tissues are within normal limits. There is a punctate nonobstructing right renal calcul us. No retroperitoneal lymphadenopathy is seen. IMPRESSION: 1. No acute bony abnormality is identified involving the lumbar spine. 2. Osteopenia and degenerative change as above. ACT 112: Negative or not required by law. Dictated: 06/08/2024 5:32 PM Transcribed: 06/08/2024 5:53 PM Braulio [id number] [email or web address] Electronically signed by: Sancho Frye M.D. 06/08/2024 6:32 PM
--- NOTE | 2024-06-08 18:33 | CT Scan Report ---
CT SCAN OF THE THORACIC SPINE WITHOUT IV CONTRAST CLINICAL HISTORY: Lower extremity numbness. Urinary incontinence. COMPARISON STUDY: Chest CT dated 01/21/2021. TECHNIQUE: CT scan of the thoracic spine is performed from the lower cervical spine to the upper lumb ar spine. Images are reviewed in the axial, sagittal, and coronal planes. IV contrast was not adminis tered for this examination. A dose lowering technique was utilized adhering to the principles of CHRISTIANO Elliott. CT DOSE: 2015.75 mGy.cm FINDINGS: The skeletal structures are osteopenic. There is no evidence of fracture or malalignment in volving the thoracic spine. No lytic or blastic lesion is seen. Small anterior osteophytes are seen t hroughout. The transverse and spinous processes appear intact. There is multilevel degenerative disc space narrowing. There is no CT evidence of large disc herniation or high-grade central canal stenosi s throughout the thoracic region. The paraspinous soft tissues are within normal limits. The posterio r ribs are intact as visualized. There is a punctate nonobstructing right renal calculus. Scarring/at electasis is noted at the lung bases. IMPRESSION: No acute bony abnormality is seen involving the thoracic spine. ACT 112: Negative or not required by law. Dictated: 06/08/2024 5:54 PM Transcribed: 06/08/2024 6:02 PM Braulio [id number] [email or web address] Electronically signed by: Sancho Frye M.D. 06/08/2024 6:31 PM
[2024-06-08] MEDS: GADOBUTROL 65ML VIAL IV ONE (21:05)
--- OUTSIDE RECORDS SUMMARY | 2024-06-08 23:19 | External Medical Summary | Summary of Care ---
Author Name Unknown Organization [facility] Address [address] [place] [place] [address] Phone [phone] Care Team Providers Care Senior Svp Name Role Phone Sarbjit Carballo MD Primary Care Provide r Reason for Referral * Evaluate & Treat - Unlimited Visits (Within 10 days (routine)) - Authorized Specialty Diagnoses / Procedures Referred By Contac t Referred To Contact Pharmacist / Pharmacy Diagnoses Type 2 diabetes mellitus with hyperglycemia, with long-term current use of insulin (HCC) Type 2 diabetes mellitus with hemoglobin A1c goal of less than 7.0% (HCC) Sarbjit Carballo MD [address] [place] [address] [place] [address] Referral ID Status Reason Start Date Expiration Date Visits Requested Visits Authorized [id number] Authorized Specialty Services Required 05/05/2024 11/01/2024 99 99 Question Answer Referral Priority Within 10 days (routine) Where should this appointment be scheduled? [facility] Referring Provider Role: Primary Care Reason for Referral: DM Target A1c: < 8 Comments Pharmacist Medication Therapy Management: Minimum frequency patient should be seen in person for medication management: as appropriate per clinical condition and patient status By my signature, I understand that my patient Shalini Byers will have her medication therapy managed by the [facility] Medication Therapy [facility] ([facility]) per established policies, procedures, and protocols. I also certify that this referral may serve as an initiation of service for the management of drug therapy in the above noted patient. [facility] providers will be responsible for scheduling patient visits, obtaining appropriate laboratory studies, and adjusting medication management therapy per patient's need, in addition to those roles spelled out in the clinic policy, procedures, and drug management protocols. I understand that the service provided by the [facility] is voluntary and have informed patient that they can refuse the service at their discretion. I am aware that the [facility] Clinic will provide me with a copy of the patient encounter via my plista InTalkoet. I authorize the [facility] to carry out these activities on my behalf. I consider this program to be a necessary part of the patient's medical care. Sarbjit Carballo MD Reason for Visit * Reason Comments Re-Check Encounter Details Date Type Department Care Team (Late st Contact Info) Description 05/05/2024 4:20 PM EDT Office Visit Family Medicine [address] [phone] Sarbjit Carballo MD [address] [place] [address] [place] [id number] Type 2 diabetes mellitus with hemoglobin A1c goal of less than 7.0% ([facility])*; Type 2 diabetes mellitus with hyperglycemia, with long-term current use of insulin ([facility]); Encounter for screening mammogram for malignant neoplasm of breast; Chronic kidney disease, stage 3a (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); Gastro-esophageal reflux disease without esophagitis Allergies Active Allergy Reactions Criticality Noted Date Comments Bee Venom High 07/01/2017 Demerol Rash 03/01/2014 Lisinopril 03/07/2018 hyperkalemia Meperidine 01/26/2021 Other reaction(s): rash Meperidine Hcl High 03/29/2021 Penicillin G High 09/16/2001 Penicillins 01/03/2004 Other reaction(s): Other (See Comments) "Extremity stiffness" documented as of this encounter (statuses as of 05/05/2024) Medications Medication Sig Dispensed Refills Start Date End Date Status Blood Glucose Monitoring Suppl (Lazy Angel) w/Device KIT Use up to 4 times a day E11.9 1 Kit 9 Active Aspirin EC 81 MG Oral Tablet Delayed ReleaseIndications: Type 2 diabetes mellitus with hemoglobin A1c goal of less than 8.0% ([facility]) Take 1 Tab by mouth daily. 100 Tab 3 1 Active CustExuch Delica Plus [id number] s:Type 2 diabetes mellitus with hyperglycemia, with long-term current use of insulin ([facility]) Use to test blood sugar TWICE a day dxE11.9 200 Each 3 2 Active Brimonidine Tartrate 0.2 % Ophthalmic Solution (Alphagan) INSTILL 1 DROP BY OPHTHALMIC ROUTE 2 TIMES EVERY DAY OK FOR 90 DAY SUPPLY. 2 Active Triamcinolone Acetonide 0.1 % External Cream (Aristocort)Indicat ions:Heat rash APPLY TO THE AFFECTED AREA TOPICALLY TWO TIMES A DAY 80 g 2 3 Active Levalbuterol Tartrate 45 MCG/ACT Inhalation Aerosol (Xopenex HFA) Inhale 1 Puff by mouth every 4 hours as needed for Wheezing. 15 g 11 3 Active Metoprolol Succinate ER 25 MG Oral Tablet Extended Release 24 Hour (toPROL XL)Indications:Tach ycardia, unspecified TAKE 1 TABLET BY MOUTH EVERY DAY IN THE MORNING 90 Tablet 3 3 Active Fluticasone-Salmete rol 230-21 MCG/ACT Inhalation Aerosol (Advair HFA)Indications:Mil d persistent asthma without complication Inhale 2 Puffs by mouth in the morning and 2 Puffs before bedtime. Rinse mouth after use.. 12 g 5 3 Active CPAP every night at bedtime. Active metFORMIN HCl 1000 MG Oral Tablet (Glucophage)Indicat ions:Type 2 diabetes mellitus with hyperglycemia, with long-term current use of insulin ([facility]) TAKE 1 TABLET BY MOUTH TWICE A DAY WITH BREAKFAST AND DINNER 180 Tablet 4 Active FieldLensio In Vitro Strip (Glucose Blood)Indications:T ype 2 diabetes mellitus with hyperglycemia, with long-term current use of insulin ([facility]) USE TO TEST BLOOD SUGAR TWICE A DAY. DX E11.9 200 Strip 3 4 Active Zyloprim 100 MG Oral Tablet (Allopurinol)Indica tions:Gouty arthropathy TAKE 1 TABLET BY MOUTH ONCE DAILY 90 Tablet 1 4 Active Singulair 10 MG Oral Tablet (montelukast)Indica tions:Mild persistent asthma without complication TAKE 1 TABLET BY MOUTH ONCE DAILY 90 Tablet 1 4 Active Levocetirizine Dihydrochloride 5 MG Oral TabletIndications:P ost-nasal drainage TAKE 1/2 TABLET BY MOUTH BEFORE BEDTIME 45 Tablet 1 4 Active Fenofibrate Micronized 67 MG Oral Capsule Take 1 Capsule by mouth daily. 90 Capsule 4 Active Amitriptyline HCl 25 MG Oral Tablet (Elavil) TAKE 1 TABLET BY MOUTH BEFORE BEDTIME 90 Tablet 3 4 Active Omeprazole 20 MG Oral Capsule Delayed Release (PriLOSEC)Indicatio ns:Gastro-esophagea l reflux disease without esophagitis Take 1 Capsule by mouth in the morning and 1 Capsule before bedtime. 180 Capsule 1 4 Active Levothyroxine Sodium 25 MCG Oral Tablet (Levoxyl)Indication s:Acquired hypothyroidism TAKE 1 TABLET BY MOUTH AT LEAST 30 MINUTES PRIOR TO BREAKFAST OR OTHER MEDS 30 Tablet 4 Active Atorvastatin Calcium 20 MG Oral Tablet (Lipitor)Indication s:Dyslipidemia, goal LDL below 100 TAKE 1 TABLET BY MOUTH AT BEDTIME 30 Tablet 4 Active Topiramate 50 MG Oral Tablet (topAMAX)Indication s:Chronic migraine without aura without status migrainosus, not intractable TAKE 1 TABLET BY MOUTH EVERY MORNING AND BEFORE BEDTIME 60 Tablet 4 Active Jardiance 25 MG Oral Tablet (Empagliflozin)Bridget cations:Type 2 diabetes mellitus with hyperglycemia, with long-term current use of insulin (HCC) TAKE 1 TABLET BY MOUTH ONCE DAILY 30 Tablet 4 Active Trulicity 0.75 MG/0.5ML Subcutaneous Solution Pen-injector (Dulaglutide)Indica tions:Type 2 diabetes mellitus with hemoglobin A1c goal of less than 7.0% ([facility]) Inject 0.75 mg under the skin once a week. 2 mL 4 Active Spacer/Aero-Holding Chambers DeviceIndications:M ild persistent asthma without complication Use with inhaler. 1 Each 4 Active Trulicity 3 MG/0.5ML Subcutaneous Solution Pen-injector (Dulaglutide)Indica tions:Type 2 diabetes mellitus with hemoglobin A1c goal of less than 7.0% (HCC),Type 2 diabetes mellitus with hyperglycemia, with long-term current use of insulin (HCC) Inject 3 mg under the skin once a week. 2 mL 5 4 024 Discontinued(Re fill) Trulicity 3 MG/0.5ML Subcutaneous Solution Pen-injector (Dulaglutide)Indica tions:Type 2 diabetes mellitus with hyperglycemia, with long-term current use of insulin (HCC),Type 2 diabetes mellitus with hemoglobin A1c goal of less than 7.0% (HCC) Inject 3 mg under the skin once a week. 2 mL 5 4 024 Discontinued documented as of this encounter (statuses as of 05/05/2024) Active Problems Problem Noted Date Diagnosed Date Type 2 diabetes mellitus wit h retinopathy without macular edema 05/05/2024 Chronic kidney disease, stage 3a 12/02/2023 Overview: Per CKD protocol PORTIA on CPAP 08/27/2023 Restless legs syndrome (RLS) 01/14/2023 Gastro-esophageal reflux disease without esophag itis 01/14/2023 Open-angle glaucoma 07/16/2022 Mucous retention cyst of maxillary sinus 022 Type 2 diabetes mellitus wit h hyperglycemia, with long-term current use of insulin 02/26/2019 Hypothyroidism 03/03/2015 Hypertriglyceridemia 04/22/2013 DYSLIPIDEMIA, GOAL LDL BELOW 100 10/06/2009 Overview: Per Lipid Taxonomy. chol 156, HDL 21, trig 488 Gouty arthropathy 08/04/2009 Overview: ICD-9 Code Update. uric acid 7.7, ULN 7.6 Type 2 diabetes mellitus wit h hemoglobin A1c goal of less than 7.0% 07/20/2006 Overview: Per Diabetes Taxonomy. random sugar 209 ICD-10 update of inactive term Asthma, mild persistent HTN, goal below 140/90 Nephrolithiasis Low HDL (under 40) documented as of this encounter (statuses as of 05/05/2024) Resolved Problems Problem Noted Date Diagnosed Date Resolved Date Drug-induced hyperkalemia 07/16/2022 Overview: lisinopril Ulcer of toe of left foot 12/12/2021 PEG (percutaneous endoscopic gastrostomy) status 02/07/2021 06/06/2021 Tracheostomy status 02/07/2021 06/06/20 Acute deep vein thrombosis ( DVT) of calf muscle vein of right lower extremity 02/07/2021 Dysphagia 02/07/2021 06/06/2021 CKD (chronic kidney disease) stage 3, GFR 30-59 ml/min 06/21/2013 01/31/2016 Overview: GFR 49.9 Severe obesity with body mas s index (BMI) of 35.0 to 39.9 with serious comorbidity 01/16/2010 Overview: Per Obesity Taxonomy ICD-10 update of inactive diagnosis DM type 2 nursing care encounter 08/18/2009 02/26/2019 Overview: Per Diabetes Taxonomy. random sugar 209 ICD-10 update of inactive term Mixed dyslipidemia 09/23/2006 9 Overview: Per Lipid Taxonomy. chol 156, HDL 21, trig 488 Gouty arthropathy 11/15/2005 08/04/2009 Overview: ICD-9 Code Update. uric acid 7.7, ULN 7.6 ICD-10 update of inactive term Obesity, BMI not known 11/05/200501/16 Overview: Per Obesity Taxonomy Elevated C-reactive protein (CRP) 06/06/2021 Overview: CRP 24.3, might be noncardiac DM type 2 causing renal disease 07/26/2015 documented as of this encounter (statuses as of 05/05/2024) Immunizations Name Administration Dates Next Due COVID-19 mRNA, LNP-s, No Pre serve, 2-Dose Series (Moderna) 09/26/2021,03/15/2021,02/08/2021 COVID-19, MRNA-LNP, 23-24, P F, 50 MCG/0.5 mL, 12 YRS AND ABOVE, IM (MODERNA-Spikevax) 11/22/2023 Covid-19, Mrna, Lnp-s, Pf, B ivalent, 50 Mcg, IM, 12 yrs and above (Moderna) 11/02/2022 Hepatitis B, 20+ yrs 09/04/1999,04/04/1999,03/04 PPD 04/15/2017,09/21/2011,12/02/2006 Pneumococcal Conjugate Vacci ne, 20-valent ([id number]) 01/14/2023 Pneumococcal Polysaccharide PPV23 (Pneumovax) 09/23/2006 Season Influenza, Quad, PF, Adjuvanted, 65+ Yrs, IM (FLUAD) 06/21/2020 Seasonal Influenza, PF, 6 M & above, IM , (FluLaval or Fluzone) 10/28/2023,07/16/2022,08/09/2021 Seasonal Influenza, Quadriva lent, No Preserve, IM 07/13/2019,07/23/2018,07/23/2016,07/26 Seasonal Influenza, Split, I IV3, With Preserve, Inj 08/24/2014,07/23/2012,09/21/2011,07/17,08/24/2007 TDAP (age 10 and older)(Boostrix) 09/25/2018 TDAP, Age 7 and older, IM (Adacel) 05/26/2008 documented as of this encounter Social History Tobacco Use Types Packs/Day Years Used Date Smoking Tobacco: Never Smokeless Tobacco: Never Alcohol Use Standard Drinks/Week Comments No 0 (1 standard drink = 0.6 oz pur e alcohol) PHQ-2 Answer Date Recorded PHQ Adult Total Score 0 02/06/2022 Hunger Vital Sign Answer Date Recorded Within the past 12 months, y ou worried that your food would run out before you got the money to buy more. Never true 04/21/20 24 Within the past 12 months, t he food you bought just didn't last and you didn't have money to get more. Never true 04/21/2024 Childcare Answer Date Recorded Do you feel overwhelmed with taking care of a child, family member or friend? No 04/21/2024 Does your family need help f inding childcare? (Household - for ages 0-17 years) Not on file 04/21/2024 Clothing Answer Date Recorded Have you been unable to get clothing when it was really needed? No 04/21/2024 Is your family able to get c lothes or diapers when needed? (Household - for ages 0-17 years) Not on file 04/21/2024 Personal Safety Answer Date Recorded Do you feel unsafe or have concerns for your saf ety? No 04/21/2024 Do you have concerns for you r family's safety? (Household - for ages 0-17 years) Not on file 04/21/2024 Utilities Answer Date Recorded Do you have trouble paying y our heating, water, or electric bill? No 04/21/2024 Is your family able to pay t he heat, water, or electric bill? (Household - for ages 0-17 years) Not on file 04/21/2024 Does your family have access to good internet? (Household - for ages 0-17 years) Not on file 04/21/2024 Employment Status Answer Date Recorded Are you unemployed or without regular income? No 04/21/2024 Does the household have a re gular source of income? (Household - for ages 0-17 years) Not on file 04/21/2024 Social Connections Answer Date Recorded How often do you feel lonely or isolated from th ose around you? Rarely 04/21/2024 Financial Resource Strain Answer Date R ecorded Do you have any trouble payi ng for your medications, or do you think you might in the future? No 04/21/2024 Does your family have troubl e paying for medicine? (Household - for ages 0-17 years) Not on file 04/21/2024 Transportation Needs Answer Date Record ed Do you have trouble getting a ride to medical visits or work? (Adult - for ages 18 years and over) Not on file 04/21/2024 Does your family have a hard time getting a ride to doctors visits? (Household - for ages 0-17 years) Not on file 04/21/2024 Has lack of transportation k ept you from medical appointments, meetings, work, or from getting things needed for daily living? Check all that apply. No 04/21/2024 Do you (or your family) have trouble finding or paying for a ride (transportation)? (Household - for ages 0-17 years) Not on file 04/21/2024 Housing Stability Answer Date Recorded Do you currently live in a s helter or have no steady place to sleep at night? No 04/21/2024 Do you think you are at risk of becoming homeless? (Adult - for ages 18 years and over) Not on file 04/21/2024 Does your family worry about paying for your home or becoming homeless? (Household - for ages 0-17 years) Not on file 0 04/21/2024 Are you homeless or worried that you might be in the future? No 04/21/2024 Are you (or your family) sunshine eless or worried that you might be in the future? (Household - for ages 0-17 years) Not on file Food Insecurity Answer Date Recorded Do you need food for this week? No 04/21/2024 Are you able to get enough f ood for your family? (Household - for ages 0-17 years) Not on file 04/21/2024 Does your family need food t his week? (Household - for ages 0-17 years) Not on file 04/21/2024 Do you always have enough fo od for your family? (Household - for ages 0-17 years) Not on file 04/21/2024 Sex and Gender Information Value Date Recorded Sex Assigned at Female 04/24/2022 2:03 PM EDT Gender Identity Female 04/24/2022 2:03 PM EDT Sexual Orientation Straight 04/24/2022 2: 03 PM EDT Job Start Date Occupation Industry Not on file Not on file Not on file documented as of this encounter Last Filed Vital Signs Vital Sign Reading Time Taken Comments Blood Pressure 120/78 05/05/2024 4:09 PM EDT Pulse 86 05/05/2024 4:09 PM EDT Temperature 36.3 C (97.3 F) 05/05/2024 4:09 PM ED T Respiratory Rate - - Oxygen Saturation 96% 05/05/2024 4:09 PM EDT Inhaled Oxygen Concentration - - Weight 82.6 kg (182 lb) 05/05/2024 4:09 PM EDT Height 166.4 cm (5' 5.5") 05/05/2024 4:09 PM EDT Body Mass Index 29.83 05/05/2024 4:09 PM EDT documented in this encounter Progress Notes * Sarbjit Carballo MD - 05/05/2024 4:24 PM EDT Subjective: Shalini Byers is a 59 year old female. Chief Complaint Patient presents with Re-Check HPI: Brief Clinical History Ms. Byers is a 59 year old female last seen in Family Medicine [facility] on 08/27/2023 by Sarbjit Carballo She has a h/o the following chronic conditions indicated on the problem list: Chronic Conditions Asthma, mild persistent Type 2 diabetes mellitus with hemoglobin A1c goal of less than 7.0% ([facility]) Type 2 diabetes mellitus with hyperglycemia, with long-term current use of insulin ([facility]) Has been out of her Trulicity for over 2 months now. She had been on the 3 mg dose prior to it going on back order. Sugars have been much higher since running out of it. Her work schedule changing and she is now able to see [facility] and baljeet like a referral. She is taking her Jardiance and metformin. Breathing has been doing good. Saturation has been around 92% at home. Is using CPAP at night. Has been using Breo and also uses Xopenex as needed. Needs a new spacer for her inhaler. Had Botox for her voice but did not really help. Is no longer seeing ENT because her voice was not really changing. Has been hoarse since she had COVID and prolonged intubation. Had labs done 04/24/24 and were reviewed with patient. Results for orders placed or performed in visit on 04/24/24 LIPID PANEL WITH DIRECT LDL IF TG IS HIGH Result Value Ref Range Triglycerides 262 (H) <=174 mg/dL Cholesterol 113 <200 mg/dL HDL Cholesterol 23 (L) >49 mg/dL Non-HDL Cholesterol 90 <=159 mg/dL TSH WITH FREE T4 IF INDICATED Result Value Ref Range TSH 4.58 (H) 0.27 - 4.20 uIU/mL HEMOGLOBIN A1C Result Value Ref Range Hemoglobin A1C 9.0 (H) 4.0 - 5.6 % Estimated Average Glucose 212 (H) <126 mg/dL ALBUMIN / CREATININE RATIO, URINE Result Value Ref Range Albumin, Random Urine <1.20 mg/dL Creatinine, Random Urine 47 mg/dL Albumin / Creatinine Ratio, Urine <26 <30 mg/g Creat MAGNESIUM Result Value Ref Range Magnesium 2.0 1.5 - 2.6 mg/dL LDL CHOLESTEROL (DIRECT MEASURE) Result Value Ref Range LDL Cholesterol (Direct Measure) 56 <=129 mg/dL T4, FREE Result Value Ref Range T4, Free 1.1 0.9 - 1.7 ng/dL PHM: Patient Active Problem List Diagnosis Type 2 diabetes mellitus with hemoglobin A1c goal of less than 7.0% ([facility]) Gouty arthropathy DYSLIPIDEMIA, GOAL LDL BELOW 100 Asthma, mild persistent Hypertriglyceridemia HTN, goal below 140/90 Nephrolithiasis Hypothyroidism Low HDL (under 40) Type 2 diabetes mellitus with hyperglycemia, with long-term current use of insulin ([facility]) Open-angle glaucoma Mucous retention cyst of maxillary sinus Restless legs syndrome (RLS) Gastro-esophageal reflux disease without esophagitis PORTIA on CPAP Chronic kidney disease, stage 3a ([facility]) Type 2 diabetes mellitus with retinopathy without macular edema ([facility]) Current Outpatient Medications Medication Sig Dispense Refill Blood Glucose Monitoring Suppl (Lazy Angel) w/Device KIT Use up to 4 times a day E11.9 1 Kit 0 Aspirin EC 81 MG Oral Tablet Delayed Release Take 1 Tab by mouth daily. 100 Tab 3 Clinician TherapeuticsTouch Delica Plus [id number] Use to test blood sugar TWICE a day dxE11.9 200 Each 3 Brimonidine Tartrate 0.2 % Ophthalmic Solution (Alphagan) INSTILL 1 DROP BY OPHTHALMIC ROUTE 2 TIMES EVERY DAY OK FOR 90 DAY SUPPLY. Triamcinolone Acetonide 0.1 % External Cream (Aristocort) APPLY TO THE AFFECTED AREA TOPICALLY TWO TIMES A DAY 80 g 2 Levalbuterol Tartrate 45 MCG/ACT Inhalation Aerosol (Xopenex HFA) Inhale 1 Puff by mouth every 4 hours as needed for Wheezing. 15 g 11 Metoprolol Succinate ER 25 MG Oral Tablet Extended Release 24 Hour (toPROL XL) TAKE 1 TABLET BY MOUTH EVERY DAY IN THE MORNING 90 Tablet 3 Fluticasone-Salmeterol 230-21 MCG/ACT Inhalation Aerosol (Advair HFA) Inhale 2 Puffs by mouth in the morning and 2 Puffs before bedtime. Rinse mouth after use.. 12 g 5 CPAP every night at bedtime. metFORMIN HCl 1000 MG Oral Tablet (Glucophage) TAKE 1 TABLET BY MOUTH TWICE A DAY WITH BREAKFAST AND DINNER 180 Tablet 0 OneTouch Verio In Vitro Strip (Glucose Blood) USE TO TEST BLOOD SUGAR TWICE A DAY. DX E11.9 200 Strip 3 Zyloprim 100 MG Oral Tablet (Allopurinol) TAKE 1 TABLET BY MOUTH ONCE DAILY 90 Tablet 1 Singulair 10 MG Oral Tablet (montelukast) TAKE 1 TABLET BY MOUTH ONCE DAILY 90 Tablet 1 Levocetirizine Dihydrochloride 5 MG Oral Tablet TAKE 1/2 TABLET BY MOUTH BEFORE BEDTIME 45 Tablet 1 Fenofibrate Micronized 67 MG Oral Capsule Take 1 Capsule by mouth daily. 90 Capsule 0 Amitriptyline HCl 25 MG Oral Tablet (Elavil) TAKE 1 TABLET BY MOUTH BEFORE BEDTIME 90 Tablet 3 Omeprazole 20 MG Oral Capsule Delayed Release (PriLOSEC) Take 1 Capsule by mouth in the morning and1 Capsule before bedtime. 180 Capsule 1 Levothyroxine Sodium 25 MCG Oral Tablet (Levoxyl) TAKE 1 TABLET BY MOUTH AT LEAST 30 MINUTES PRIOR TO BREAKFAST OR OTHER MEDS 30 Tablet 0 Atorvastatin Calcium 20 MG Oral Tablet (Lipitor) TAKE 1 TABLET BY MOUTH AT BEDTIME 30 Tablet 0 Topiramate 50 MG Oral Tablet (topAMAX) TAKE 1 TABLET BY MOUTH EVERY MORNING AND BEFORE BEDTIME 60 Tablet 0 Jardiance 25 MG Oral Tablet (Empagliflozin) TAKE 1 TABLET BY MOUTH ONCE DAILY 30 Tablet 0 Trulicity 0.75 MG/0.5ML Subcutaneous Solution Pen-injector (Dulaglutide) Inject 0.75 mg under the skin once a week. 2 mL 0 Spacer/Aero-Holding Chambers Device Use with inhaler. 1 Each 0 No current facility-administered medications for this visit. Past Medical History: Diagnosis Date Abscess of vulva 03/04/10 [facility] ER Acute cystitis 06/21/13 50,000 E Coli pansensitive Asthma DM type 2 causing renal disease (HCC) DM type 2, goal A1c below 7 07/20/06 random sugar 209 Drug-induced hyperkalemia lisinopril Elevated C-reactive protein (CRP) 09/23/06+ CRP 24.3, might be noncardiac Gouty arthropathy 11/15/05 uric acid 7.7, ULN 7.6 HTN, goal below 130/80 Hyperlipidemia LDL goal < 100 Low HDL (under 40) Mixed dyslipidemia 09/23/06 chol 156, HDL 21, trig 488 Nephrolithiasis 06/21/13 4 mm obstructing stone wtih right hydronephrosis Obesity, BMI not known Ovarian cyst 06/21/13 4 cm cyst--recommend repeat us to ensure resolution Renal colic 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 Hepatomegaly with diffuse fatty liver CT PELVIS W WO CONTRAST 08/12/2006 no pelvic abnormality, degenerative changes in Lumbar Spine EGD, FLEXIBLE, DIAGNOSTIC 01/18/2021 PEG placed / INPT [facility] INFORMATION cyst removed from her back MAMMOGRAM SCREENING BILATERAL Bilateral 03/19/2019 scattered fibroglandular densities, category 2 benign MAMMOGRAM SCREENING-BILATERAL 07/05/2008 almost entirely fat, category 1 normal PARTIAL HYSTERECTOMY 2001 DUB has ovaries, Dr Swanson, [facility] PEG TUBE EDU 01/18/2021 while hosp with Covid REDUCTION OF BREAST Bilateral 1992 Social History Socioeconomic History Marital status: Spouse name: Not on file Number of children: Not on file Years of education: Not on file Highest education level: Not on file Occupational History Not on file Tobacco Use Smoking status: Never Smokeless tobacco: Never Vaping Use Vaping status: Never Used Substance and Sexual Activity Alcohol use: No Drug use: No Sexual activity: Yes Partners: Male control/protection: Surgical Comment: had a vasectomy Other Topics Concern Service Not Asked Blood Transfusions Not Asked Caffeine Concern Not Asked Occupational Exposure Not Asked Hobby Hazards Not Asked Sleep Concern Not Asked Stress Concern Not Asked Weight Concern Not Asked Special Diet Not Asked Back Care Not Asked Exercise No Bike Helmet Not Asked Seat Belt Not Asked Self-Exams Yes Comment: breast Social History Narrative 2 dogs 6 cats No mold Social Determinants of Health Financial Resource Strain: Low Risk (04/21/2024) Financial Resource Strain Do you have any trouble paying for your medications, or do you think you might in the future? (Adult - for ages 18 years and over): No Does your family have trouble paying for medicine? (Household - for ages 0-17 years): Not on file Food Insecurity: No Food Insecurity (04/21/2024) Food Insecurity Do you need food for this week? (Adult - for ages 18 years and over): No Are you able to get enough food for your family? (Household - for ages 0-17 years): Not on file Does your family need food this week? (Household - for ages 0-17 years): Not on file Do you always have enough food for your family? (Household - for ages 0-17 years): Not on file Transportation Needs: No Transportation Needs (04/21/2024) Transportation Needs Do you have trouble getting a ride to medical visits or work? (Adult - for ages 18 years and over):Not on file Does your family have a hard time getting a ride to doctors visits? (Household - for ages 0-17 years): Not on file Has lack of transportation kept you from medical appointments, meetings, work, or from getting things needed for daily living? Check all that apply. (Adult - for ages 18 years and over): No Do you (or your family) have trouble finding or paying for a ride (transportation)? (Household - for ages 0-17 years): Not on file Social Connections: Socially Integrated (04/21/2024) Social Connections How often do you feel lonely or isolated from those around you? (Adult - for ages 18 years and over): Rarely Housing Stability: Low Risk (04/21/2024) Housing Stability Do you currently live in a alf or have no steady place to sleep at night? (Adult - for ages 18 years and over): No Do you think you are at risk of becoming homeless? (Adult - for ages 18 years and over): Not on file Does your family worry about paying for your home or becoming homeless? (Household - for ages 0-17 years): Not on file Are you homeless or worried that you might be in the future? (Adult - for ages 18 years and over): No Are you (or your family) homeless or worried that you might be in the future? (Household - for ages0-17 years): Not on file Review of patient's allergies indicates: Allergen Reactions Bee Venom Meperidine Hcl Penicillin G Demerol Rash Lisinopril hyperkalemia Meperidine Other reaction(s): rash Penicillins Other reaction(s): Other (See Comments) "Extremity stiffness" Objective: BP 120/78 | Pulse 86 | Temp 36.3 C (97.3 F) (Tympanic) | Ht 1.664 m (5' 5.5") | Wt 82.6 kg (182lb) | LMP 04/30/2002 | SpO2 96% | BMI 29.83 kg/m | BSA 1.95 m Physical Exam: General: alert, no distress, well nourished, and well developed Head: Normocephalic, No masses, lesions, tenderness or abnormalities Eye Exam: PERRLA, extraocular movements intact, conjunctiva are pink and non- injected, sclera clear Ears: External ears normal, Canals clear, TM's Normal Nose: no mucosal erythema, no mucosal edema, no purulent discharge Oropharynx: no exudate, no erythema, lips, buccal mucosa, and tongue normal, and mucous membranes are moist Neck: supple, no adenopathy, no bruits Heart: regular rate & rhythm, no murmur, and no gallops Lungs: chest symmetric with normal AP diameter, no chest deformities noted, no chest wall tenderness, lungs clear to auscultation Extremities: no edema, no clubbing, no cyanosis Neuro Exam: alert & oriented x 3 with fluent speech, no focal motor/sensory deficits, gait normal Extensive ROS Constitutional (f/c/wt/vision/hearing): Negative Resp (cough/sob/back): see above hpi CV (cp/palp/fluttering/diaphoresis/back/pnd):see above hpi GI (n/v/d/hrtburn): +GERD controlled with PPI Endo (hair/cold or heat intol/ 3 p's): see above hpi Neuro (shaking/weak/fatigu/parasthesi/): see above hpi Skin (rash/easy bruis/xerosis): Negative Psy (si/hi/halluc/): see above hpi (nocturia/hesit/drib/sexual review): Negative Lymph (swollen glands/b sx's/: Negative ASSESSMENT: Type 2 diabetes mellitus with hemoglobin A1c goal of less than 7.0% ([facility]) (Primary)--uncontrolled. A1C up to 9.0 but has been out of Trulicity for almost 3 months. Start at lowest dose and titrate togoal dose. Her work schedule changed and can now see MTM and would like referral. Check A1C in about 3 months. - Trulicity 0.75 MG/0.5ML Subcutaneous Solution Pen-injector (Dulaglutide); Inject 0.75 mg under the skin once a week. - HEMOGLOBIN A1C; Future; Expected date: 08/05/2024 - [facility] MGMT REFERRAL OP Type 2 diabetes mellitus with hyperglycemia, with long-term current use of insulin (HCC)--as above - DIABETES FOOT EXAM - PHARMACIST MEDS THERAPY MGMT REFERRAL OP Encounter for screening mammogram for malignant neoplasm of breast - MAMMOGRAM SCREENING LIZETTE BILATERAL; Future; Expected date: 05/05/2024 Chronic kidney disease, stage 3a ([facility])--stable. Check kidney function on next set of labs. - RENAL FUNCTION PANEL; Future; Expected date: 05/05/2024 - HGB; Future; Expected date: 05/05/2024 Encounter for long-term (current) use of medications - VITAMIN B12; Future; Expected date: 08/05/2024 HTN, goal below 140/90--controlled with metoprolol succinate 25 mg daily PORTIA on CPAP--compliant. Mild persistent asthma without complication--controlled with Advair and Xopenex. Needs a new spacer. - DURABLE MEDICAL EQUIPMENT - Spacer/Aero-Holding Chambers Device; Use with inhaler. Gouty arthropathy--controlled with allopurinol 100 mg daily Restless legs syndrome (RLS)--stable with amitriptyline Type 2 diabetes mellitus with retinopathy without macular edema, unspecified laterality, unspecified retinopathy severity, unspecified whether shelter insulin use (HCC)--follows with ophthalmology Gastro-esophageal reflux disease without esophagitis--controlled with omeprazole 20 mg daily Follow Up: Return in about 6 months (around 11/05/2024) for Clinic Visit. | For: Clinic Visit PLAN: Continue present medication(s): Renew prescription(s) for: Trulicity but need to start at 0.75 mg dose as she has been out of it for over 2 months. Sent Rx for spacer for her inhaler. Studies ordered: Screening mammogram. Schedule labs: B12, renal function panel, and A1c in about 3 months Patient education: Discussed diabetes control and titrating Trulicity monthly to goal dose. Was previously on 3 mg before she could not obtain it from the pharmacy. Follow up: in 6 month(s). Sarbjit Carballo MD documented in this encounter Nursing Notes * Valeria Thompson LPN - 05/05/2024 4:08 PM EDT Recheck Needs Trulicity sent to [facility] pharm due to unable to get at [facility]. Has not had for a few months. documented in this encounter Plan of Treatment Upcoming Encounters Date Type Department Care Team (Late st Contact Info) Description 05/27/2024 3:30 PM EDT Imaging Radiology [address] [place] [address] 11/05/2024 4:20 PM EST Office Visit Family Medicine [address] [place] [phone] Sharlene Pacheco CRNP [address] [place] [address] [place] [id number] 05/07/2025 4:20 PM EDT Office Visit [address] [place] [phone] Sarbjit Carballo MD [address] [place] [address] [place] [id number] Scheduled Orders Name Type Priority Associated Diagnoses Orde r Schedule MAMMOGRAM SCREENING LIZETTE BILATERAL Medical Imaging Routine Encounter for screening mammogram for malignant neoplasm of breast Expected: 05/05/2024, Expires: 06/05/2025 RENAL FUNCTION PANEL Lab Routine Chronic kidney disease, stage 3a (HCC) Expected: 05/05/2024 (Approximate), Expires: 05/05/2025 HGB Lab Routine Chronic kidney disease, stage 3a (HCC) Expected: 05/05/2024, Expires: 05/05/2025 HEMOGLOBIN A1C Lab Routine Type 2 diabetes mellitus with hemoglobin A1c goal of less than 7.0% (HCC) Expected: 08/05/2024 (Approximate), Expires: 05/05/2025 VITAMIN B12 Lab Routine Encounter for long-term (current) use of medications Expected: 08/05/2024 (Approximate), Expires: 05/05/2025 Scheduled Referrals Name Type Priority Associated Diagnoses Orde r Schedule PHARMACIST MEDS THERAPY MGMT REFERRAL OP Referral Within 10 days (routine) Type 2 diabetes mellitus with hyperglycemia, with long-term current use of insulin (HCC) Type 2 diabetes mellitus with hemoglobin A1c goal of less than 7.0% ([facility]) Ordered: 05/05/2024 Health Maintenance Due Date Last Done Comments HIV Screening 1979 Colonoscopy 2009 Sigmoidoscopy 2009 Zoster Vaccines (1 of 2) 2014 CKD PHOS USE SMARTSET 09299 01/22/20170 01/2016, 07/26/2015, 02/25/2015, Additional history exists Fecal Occult Blood Test 04/18/2018 04/18/2017, 11/27 Depression Screening 02/06/2023 02/06/2022 CKD HGB USE SMARTSET [id number] 01/12/202401/11, 01/11/2023, 12/08/2021, Additional history exists Mammogram 04/09/2024 04/09/2023, 0204/2022, 11/25/2020, Additional history exists *SPIROMETRY ONCE FOR ASTHMA-ADULT 05/03/2024 GFR 05/04/2024 11/04/2023, 12/20, 12/08/2021, Additional history exists Influenza Vaccine (FLU shot) (#1) 2024 10/28/2023, 07/16/2022, 08/09/2021, Additional history exists HbA1c 10/25/2024 04/24/2024, 10/21, 01/11/2023, Additional history exists Cologuard 10/30/2024 10/30/2021, 09/22, 10/19/2021, Additional history exists Colorectal Cancer Screening 10/30/2024 Diabetic Eye Exam 11/04/2024 11/04/2023, , 05/08/2021, Additional history exists TSH 04/24/2025 04/24/2024, 12/20, 12/08/2021, Additional history exists Albumin/Creatinine Ratio 04/28/2025 024, 01/11/2023, 12/08/2021, Additional history exists Diabetic Foot Exam 05/05/2025 05/05/2024, 0 01/14/2023, 12/12/2021, Additional history exists DTaP,Tdap,and Td Vaccines (4 - Td or Tdap) 09/25/2028 09/25/2018, 05/26/2008, 04/13/2003 Lipid Panel 04/24/2029 04/24/2024, 12/20, 12/08/2021, Additional history exists Hepatitis B Vaccine Completed 09/04/1999, 04/04/1999, 03/04/1999 Pneumococcal Vaccine: Pediatrics (0 to 5 Years) and At-Risk Patients (6 to 64 Years) Completed 01/14/2023, 09/23/2006 COVID-19 Vaccine Completed 11/22/2023, , 09/26/2021, Additional history exists HPV (Gardasil) Vaccine Aged Out No lo nger eligible based on patient's age to complete this topic MENINGOCOCCAL (MENACTRA/MENVEO) Aged Out No longer eligible based on patient's age to complete this topic documented as of this encounter Medical Devices Not on filedocumented as of this encounter Visit Diagnoses Diagnosis Type 2 diabetes mellitus with hemoglobin A1c goal of less than 7.0% (HCC)- Primary Type 2 diabetes mellitus with hyperglycemia, with long-term current use of insulin (HCC) Encounter for screening mammogram for malignant neoplasm of breast Other screening mammogram Chronic kidney disease, stage 3a (HCC) Encounter for long-term (current) use of medications Encounter for long-term (current) use of other medications HTN, goal below 140/90 Unspecified essential hypertension PORTIA on CPAP Obstructive sleep apnea (adult) (pediatric) Mild persistent asthma without complication Unspecified asthma Gouty arthropathy Gouty arthropathy, unspecified Restless legs syndrome (RLS) Type 2 diabetes mellitus with retinopathy without macular edema, unspecified laterality, unspecified retinopathy severity, unspecified whether citizenship teacher insulin use (HCC) Gastro-esophageal reflux disease without esophagitis Esophageal reflux documented in this encounter Care Teams Senior Svp Relationship Specialty Start Date End Date Sarbjit Carballo MD [address] [place] [address] [place] [id number] PCP - General Family Medicine 07/12/22 documented as of this encounter
--- OUTSIDE RECORDS SUMMARY | 2024-06-08 23:19 | External Medical Summary | Summary of Care ---
Author Name Unknown Organization [facility] Address [address] [place] [address] Phone [phone] Care Team Providers Care Rural Carrier Associate Name Role Phone Sarbjit Carballo MD Primary Care Provide r Reason for Visit * Reason Comments Dosage Adjustment In Person (Anticoag Cl inic) Diabetes Education * Evaluate & Treat - Unlimited Visits (Within 10 days (routine)) - Authorized Specialty Diagnoses / Procedures Referred By Devante t Referred To Contact Pharmacist / Pharmacy Diagnoses Type 2 diabetes mellitus with hyperglycemia, with long-term current use of insulin (HCC) Type 2 diabetes mellitus with hemoglobin A1c goal of less than 7.0% (HCC) Sarbjit Carballo MD [address] [place] [address] [place] [id number] Referral ID Status Reason Start Date Expiration Date Visits Requested Visits Authorized [id number] Authorized Specialty Services Required 05/05/2024 11/01/[phone] Encounter Details Date Type Department Care Team (Late st Contact Info) Description 05/13/2024 2:40 PM EDT Office Visit Pharmacy, [address] [place] [address] [place] [address] Type 2 diabetes mellitus with hyperglycemia, with long-term current use of insulin ([facility])* Allergies Active Allergy Reactions Criticality Noted Date Comments Bee Venom High 07/01/2017 Demerol Rash 03/01/2014 Lisinopril 03/07/2018 hyperkalemia Meperidine 01/26/2021 Other reaction(s): rash Meperidine Hcl High 03/29/2021 Penicillin G High 09/16/2001 Penicillins 01/03/2004 Other reaction(s): Other (See Comments) "Extremity stiffness" documented as of this encounter (statuses as of 05/13/2024) Medications Medication Sig Dispensed Refills Start Date End Date Status Aspirin EC 81 MG Oral Tablet Delayed ReleaseIndications:T ype 2 diabetes mellitus with hemoglobin A1c goal of less than 8.0% ([facility]) Take 1 Tab by mouth daily. 100 Tab 3 1 Active Brimonidine Tartrate 0.2 % Ophthalmic Solution (Alphagan) INSTILL 1 DROP BY OPHTHALMIC ROUTE 2 TIMES EVERY DAY OK FOR 90 DAY SUPPLY. 2 Active Levalbuterol Tartrate 45 MCG/ACT Inhalation Aerosol (Xopenex HFA) Inhale 1 Puff by mouth every 4 hours as needed for Wheezing. 15 g 11 3 Active Fluticasone-Salmeter ol 230-21 MCG/ACT Inhalation Aerosol (Advair HFA)Indications:Mild persistent asthma without complication Inhale 2 Puffs by mouth in the morning and 2 Puffs before bedtime. Rinse mouth after use.. 12 g 5 3 Active CPAP every night at bedtime. Active Amitriptyline HCl 25 MG Oral Tablet (Elavil) TAKE 1 TABLET BY MOUTH BEFORE BEDTIME 90 Tablet 3 4 Active Trulicity 0.75 MG/0.5ML Subcutaneous Solution Pen-injector (Dulaglutide)Indicat ions:Type 2 diabetes mellitus with hemoglobin A1c goal of less than 7.0% ([facility]) Inject 0.75 mg under the skin once a week. 2 mL 4 Active Spacer/Aero-Holding Chambers DeviceIndications:Mi ld persistent asthma without complication Use with inhaler. 1 Each 4 Active Fenofibrate Micronized 67 MG Oral Capsule TAKE 1 CAPSULE BY MOUTH DAILY. 30 Capsule 5 4 Active Metoprolol Succinate ER 25 MG Oral Tablet Extended Release 24 Hour (toPROL XL)Indications:Tachy cardia, unspecified Take 1 Tablet by mouth daily. 90 Tablet 4 Active Triamcinolone Acetonide 0.1 % External Cream (Aristocort)Indicati ons:Heat rash APPLY TO THE AFFECTED AREA TOPICALLY TWO TIMES A DAY 80 g 2 4 Active metFORMIN HCl 1000 MG Oral Tablet (Glucophage)Indicati ons:Type 2 diabetes mellitus with hyperglycemia, with long-term current use of insulin (HCC) TAKE 1 TABLET BY MOUTH TWICE A DAY WITH BREAKFAST AND DINNER 180 Tablet 1 4 Active Allopurinol 100 MG Oral TabletIndications:Go uty arthropathy Take 1 Tablet by mouth in the morning. 90 Tablet 1 4 Active Montelukast Sodium 10 MG Oral Tablet (Singulair)Indicatio ns:Mild persistent asthma without complication Take 1 Tablet by mouth in the morning. 90 Tablet 1 4 Active Levocetirizine Dihydrochloride 5 MG Oral TabletIndications:Po st-nasal drainage TAKE 1/2 TABLET BY MOUTH BEFORE BEDTIME 45 Tablet 1 4 Active Omeprazole 20 MG Oral Capsule Delayed Release (PriLOSEC)Indication s:Gastro-esophageal reflux disease without esophagitis Take 1 Capsule by mouth in the morning and 1 Capsule before bedtime. 180 Capsule 1 4 Active Levothyroxine Sodium 25 MCG Oral Tablet (Levoxyl)Indications :Acquired hypothyroidism TAKE 1 TABLET BY MOUTH AT LEAST 30 MINUTES PRIOR TO BREAKFAST OR OTHER MEDS 90 Tablet 1 4 Active Atorvastatin Calcium 20 MG Oral Tablet (Lipitor)Indications :Dyslipidemia, goal LDL below 100 Take 1 Tablet by mouth at bedtime. 90 Tablet 3 4 Active Empagliflozin 25 MG Oral Tablet (Jardiance)Indicatio ns:Type 2 diabetes mellitus with hyperglycemia, with long-term current use of insulin (HCC) Take 1 Tablet by mouth in the morning. 90 Tablet 1 4 Active Topiramate 50 MG Oral Tablet (topAMAX)Indications :Chronic migraine without aura without status migrainosus, not intractable Take 1 Tablet by mouth in the morning and 1 Tablet before bedtime. TAKE 1 TABLET BY MOUTH EVERY MORNING AND BEFORE BEDTIME. 60 Tablet 3 4 Active PaxVax System w/Device Kit Use as directed. Monitor blood sugars up to three times daily. DxE11.9 1 Kit 4 Active OneTouch Verio In Vitro Strip (Glucose Blood) Use as directed to monitor blood sugars up to three times daily. DxE11.9 300 Strip 3 4 Active OneTouch Delica Lancets 33G Use as directed to monitor blood sugars up to three times daily. DxE11.9 300 Each 3 4 Active Trulicity 1.5 MG/0.5ML Subcutaneous Solution Pen-injector (Dulaglutide) Inject 1.5 mg under the skin once a week. DxE11.9 2 mL 3 4 Active Blood Glucose Monitoring Suppl (ONETOUCH VERIO) w/Device KIT Use up to 4 times a day E11.9 1 Kit 9 05/13/20 24 Discontinued OneTouch Delica Plus [id number] :Type 2 diabetes mellitus with hyperglycemia, with long-term current use of insulin (HCC) Use to test blood sugar TWICE a day dxE11.9 200 Each 3 2 05/13/20 24 Discontinued OneTouch Verio In Vitro Strip (Glucose Blood)Indications:Ty pe 2 diabetes mellitus with hyperglycemia, with long-term current use of insulin (HCC) USE TO TEST BLOOD SUGAR TWICE A DAY. DX E11.9 200 Strip 3 4 05/13/20 24 Discontinued documented as of this encounter (statuses as of 05/13/2024) Active Problems Problem Noted Date Diagnosed Date [...] as of this encounter (statuses as of 05/13/2024) Resolved Problems Problem Noted Date Diagnosed Date Resolved Date Drug-induced hyperkalemia 07/16/2022 Overview: lisinopril Ulcer of toe of left foot 12/12/2021 PEG (percutaneous endoscopic gastrostomy) status 02/07/2021 06/06/2021 Tracheostomy status 02/07/2021 06/06/20 21 Acute deep vein thrombosis ( DVT) of [...] update of inactive term Mixed dyslipidemia 09/23/2006 Overview: Per Lipid Taxonomy. chol 156, HDL 21, trig 488 Gouty arthropathy 11/15/2005 08/04/2009 Overview: ICD-9 Code Update. uric acid 7.7, ULN 7.6 ICD-10 update of inactive term Obesity, BMI not known 11/05/200501/16 Overview: Per Obesity Taxonomy Elevated C-reactive protein (CRP) 06/06/2021 Overview: CRP 24.3, might be noncardiac DM type 2 causing renal disease 07/26/2015 documented as of this encounter (statuses as of 05/13/2024) Immunizations Name Administration Dates Next Due COVID-19 mRNA, LNP-s, No Pre serve, 2-Dose Series (Moderna) 09/26/2021,03/15/2021,02/08/2021 COVID-19, MRNA-LNP, 23-24, P F, 50 MCG/0.5 mL, 12 YRS AND ABOVE, IM (MODERNA-Spikevax) 11/22/2023 Covid-19, Mrna, Lnp-s, Pf, B ivalent, 50 Mcg, IM, 12 yrs and above (Moderna) 11/02/2022 Hepatitis B, 20+ yrs 09/04/1999,04/04/1999,03/04 PPD 04/15/2017,09/21/2011,12/02/2006 Pneumococcal Conjugate Vacci ne, 20-valent ([id number]) 01/14/2023 Pneumococcal Polysaccharide PPV23 (Pneumovax) 09/23/2006 Season [...] on file documented as of this encounter Progress Notes * Ivy Claudinerosalva Lora, [facility] - 05/13/2024 2:33 PM EDT Medication Therapy Disease Management Clinic - Diabetes Management Progress Note Shalini Byers, identified by name and date of , is a 59 year old female being seen for diabetesmanagement/education. Patient presents for initial diabetic visit. Past Medical History: Diagnosis Date Abscess of vulva 03/04/10 [facility] ER Acute cystitis 06/21/13 50,000 E [...] 12/05/06 PPD negative Strep sore throat 11/05/05 Diagnosis: Type 2 Age of diabetes diagnosis: About 19 years Family history of diabetes: Mother, grandmother Microvascular complications: retinopathy Macrovascular complications: hypertension dyslipidemia History of Treatment Barriers: Lifestyle: None Therapy considerations: None Medication: n/a DIABETES: Current diabetic medications: Jardiance 25mg daily Metformin HCl 1000mg BID Trulicity 0.75mg once weekly eGFR 46 as of 11/04/23 Medication Injection Site: N/A Lifestyle: Diet: unchanged Glucose Review/SMBG: Not available Hypoglycemia: Does your blood sugar go below 70 mg/dL? Denies Hyperglycemia symptoms present: none Recent Labs Units 04/24/24 0735 11/04/23 0827 01/11/23 0829 HEMOGLOBIN A1C - [facility] % 9.0* 8.4* 8.1* Recent Labs Units 11/04/23 0827 01/11/23 0829 ESTIMATED GLOMERULAR FILTRATION RATE - [facility] mL/min 46* 52* CREATININE - [facility] mg/dL 1.3* 1.2* HYPERTENSION: Patient on ACEi/ARB: no, hyperkalemia rx listed BP Readings from Last 3 Encounters: 05/05/24 120/78 10/28/23 102/72 06/10/23 108/70 Blood pressure at goal: yes HYPERLIPIDEMIA: Patient is taking moderate or high intensity statin: yes HEALTH MAINTENANCE REVIEW: Health Maintenance Due Topic Date Due HIV Screening Never done Zoster Vaccines (1 of 2) Never done CKD PHOS USE SMARTSET 12003 01/22/2017 Depression Screening 02/06/2023 CKD HGB USE SMARTSET 89118 01/12/2024 Mammogram 04/09/2024 *SPIROMETRY ONCE FOR ASTHMA-ADULT Never done GFR 05/04/2024 ASSESSMENT & PLAN: ICD-10-CM 1. Type 2 diabetes mellitus with hyperglycemia, with long-term current use of insulin ([facility]) E11.65 Z79.4 Considerations: [facility] (mail order pharmacy) pill packs medications Declines CGM as of 05/13/24 Lengthy discussion on diabetes pathophysiology, role of diet and macronutrients on blood glucose control and benefits of exercise. BG Readings - Blood sugars not available. Patient notes to experiencing DM fatigue when unable to obtain Trulicity. Stopped testing as much. Recent A1c showed increase. Encouraged to work on increasing testing frequency, new meter sent to pharmacy. Of note, discussed CGM. Patient states her husbandhas one, she is not interested at this time. Medications - Reviewed current regimen. Patient recently had strugged with Trulicity back order. Recently able to obtain and restart 0.75mg dose. Previously had been on 4.5mg. Agreeable to work on further increasing monthly. Trulicity 1.5mg pens sent in for patient to obtain upon refill next month. Diet, Exercise, Lifestyle - Encouraged to work on lifestyle modifications prior to next visit. 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 Patient is agreeable to SMBG 1-2 time(s) daily. Patient aware to contact clinic if any hypoglycemia before next visit. MEDICATION CHANGES: See below Diabetic Medications: Jardiance 25mg daily Metformin HCl 1000mg BID Trulicity 0.75mg once weekly (plan to increase to 1.5mg dose upon next refill) eGFR 46 as of 11/04/23 HEALTH MAINTENANCE INTERVENTIONS: Deferred d/t time constraints FOLLOW UP: Return to clinic in 4 weeks 06/11/2024 Claudine Haynes [facility] Clinical Pharmacist - Delivery Mgr Medication Therapy Management Clinic 05/13/2024, 2:33 PM documented in this encounter Plan of Treatment Upcoming Encounters Date Type Department Care Team (Late st Contact Info) Description 05/27/2024 3:30 PM EDT Imaging Radiology [address] [place] [id number] 06/11/2024 3:30 PM EDT Office Visit Pharmacy, [address] [place] [address] [place] [address] 11/05/2024 4:20 PM EST Office Visit Family Medicine [address] [place] [phone] Sharlene Pacheco CRNP [address] [place] [address] [place] [address] 05/07/2025 4:20 PM EDT Office Visit Family Medicine [address] [place] [phone] Sarbjit Carballo MD [address] [place] [address] [place] [id number] Health Maintenance Due Date Last Done Comments HIV Screening 1979 Colonoscopy 2009 Sigmoidoscopy 2009 Zoster Vaccines (1 of 2) 2014 CKD PHOS USE SMARTSET 15086 01/22/2017 04/0 01/2016, 07/26/2015, 02/25/2015, Additional history exists Fecal Occult Blood Test 04/18/2018 04/18/2017, 11/27 Depression Screening 02/06/2023 02/06/2022 CKD HGB USE SMARTSET 38174 01/12/202401/11, 01/11/2023, 12/08/2021, Additional history exists Mammogram [...] Diagnoses Diagnosis Type 2 diabetes mellitus with hyperglycemia, with long-term current use of insulin (HCC)- Primary documented in this encounter Care Teams Rural Carrier Associate Relationship Specialty Start Date End Date Sarbjit Carballo MD [address] [place] [address] [place] [phone] PCP - General Family Medicine 07/12/22 documented as of this encounter
--- OUTSIDE RECORDS SUMMARY | 2024-06-08 23:19 | External Medical Summary | Summary of Care ---
Author Name Unknown Organization [facility] Address [address] [place] [address] Phone [phone] Care Team Providers Care Associate Professor Of Physics Name Role Phone Christian Carballo MD Primary Care Provide r Reason for Visit * Reason Onset Date Comments Medication Refill 05/07/2024 Encounter Details Date Type Department Care Team (Late st Contact Info) Description 05/07/2024 Refill Family Medicine [address] [phone] Christian Carballo MD [address] [place] [address] [place] [address] Heat rash; Type 2 diabetes mellitus with hyperglycemia, with long-term current use of insulin (HCC); Gouty arthropathy; Mild persistent asthma without complication; Post-nasal drainage; Gastro-esophageal reflux disease without esophagitis; Acquired hypothyroidism; Dyslipidemia, goal LDL below 100 Allergies Active Allergy Reactions Criticality Noted Date Comments Bee Venom High 07/01/2017 Demerol Rash 03/01/2014 Lisinopril 03/07/2018 hyperkalemia Meperidine 01/26/2021 Other reaction(s): rash Meperidine Hcl High 03/29/2021 Penicillin G High 09/16/2001 Penicillins 01/03/2004 Other reaction(s): Other (See Comments) "Extremity stiffness" documented as of this encounter (statuses as of 05/08/2024) Medications Medication Sig Dispensed Refills Start Date End Date Status Blood Glucose Monitoring Suppl (ONETOUCH VERIO) w/Device KIT Use up to 4 times a day E11.9 1 Kit 09/03/2019 Active Aspirin EC 81 MG Oral Tablet Delayed ReleaseIndications:T ype 2 diabetes mellitus with hemoglobin A1c goal of less than 8.0% ([facility]) Take 1 Tab by mouth daily. 100 Tab 3 11/08/2020 Active OneTouch Delica Plus [id number] :Type 2 diabetes mellitus with hyperglycemia, with long-term current use of insulin ([facility]) Use to test blood sugar TWICE a day dxE11.9 200 Each 3 12/25/2021 Active Brimonidine Tartrate 0.2 % Ophthalmic Solution (Alphagan) INSTILL 1 DROP BY OPHTHALMIC ROUTE 2 TIMES EVERY DAY OK FOR 90 DAY SUPPLY. 05/26/2022 Active Levalbuterol Tartrate 45 MCG/ACT Inhalation Aerosol (Xopenex HFA) Inhale 1 Puff by mouth every 4 hours as needed for Wheezing. 15 g 11 05/23/2023 Active Fluticasone-Salmeter ol 230-21 MCG/ACT Inhalation Aerosol (Advair HFA)Indications:Mild persistent asthma without complication Inhale 2 Puffs by mouth in the morning and 2 Puffs before bedtime. Rinse mouth after use.. 12 g 5 08/13/2023 Active CPAP every night at bedtime. Active OneTouch Verio In Vitro Strip (Glucose Blood)Indications:Ty pe 2 diabetes mellitus with hyperglycemia, with long-term current use of insulin ([facility]) USE TO TEST BLOOD SUGAR TWICE A DAY. DX E11.9 200 Strip 3 01/20/2024 Active Amitriptyline HCl 25 MG Oral Tablet (Elavil) TAKE 1 TABLET BY MOUTH BEFORE BEDTIME 90 Tablet 3 02/05/2024 Active Trulicity 0.75 MG/0.5ML Subcutaneous Solution Pen-injector (Dulaglutide)Indicat ions:Type 2 diabetes mellitus with hemoglobin A1c goal of less than 7.0% ([facility]) Inject 0.75 mg under the skin once a week. 2 mL 05/05/2024 Active Spacer/Aero-Holding Chambers DeviceIndications:Mi ld persistent asthma without complication Use with inhaler. 1 Each 05/05/2024 Active Fenofibrate Micronized 67 MG Oral Capsule TAKE 1 CAPSULE BY MOUTH DAILY. 30 Capsule 5 05/07/2024 Active Metoprolol Succinate ER 25 MG Oral Tablet Extended Release 24 Hour (toPROL XL)Indications:Tachy cardia, unspecified Take 1 Tablet by mouth daily. 90 Tablet 05/07/2024 Active Triamcinolone Acetonide 0.1 % External Cream (Aristocort)Indicati ons:Heat rash APPLY TO THE AFFECTED AREA TOPICALLY TWO TIMES A DAY 80 g 2 05/08/2024 Active metFORMIN HCl 1000 MG Oral Tablet (Glucophage)Indicati ons:Type 2 diabetes mellitus with hyperglycemia, with long-term current use of insulin (HCC) TAKE 1 TABLET BY MOUTH TWICE A DAY WITH BREAKFAST AND DINNER 180 Tablet 1 05/08/2024 Active Allopurinol 100 MG Oral TabletIndications:Go uty arthropathy Take 1 Tablet by mouth in the morning. 90 Tablet 1 05/08/2024 Active Montelukast Sodium 10 MG Oral Tablet (Singulair)Indicatio ns:Mild persistent asthma without complication Take 1 Tablet by mouth in the morning. 90 Tablet 1 05/08/2024 Active Levocetirizine Dihydrochloride 5 MG Oral TabletIndications:Po st-nasal drainage TAKE 1/2 TABLET BY MOUTH BEFORE BEDTIME 45 Tablet 1 05/08/2024 Active Omeprazole 20 MG Oral Capsule Delayed Release (PriLOSEC)Indication s:Gastro-esophageal reflux disease without esophagitis Take 1 Capsule by mouth in the morning and 1 Capsule before bedtime. 180 Capsule 1 05/08/2024 Active Levothyroxine Sodium 25 MCG Oral Tablet (Levoxyl)Indications :Acquired hypothyroidism TAKE 1 TABLET BY MOUTH AT LEAST 30 MINUTES PRIOR TO BREAKFAST OR OTHER MEDS 90 Tablet 1 05/08/2024 Active Atorvastatin Calcium 20 MG Oral Tablet (Lipitor)Indications :Dyslipidemia, goal LDL below 100 Take 1 Tablet by mouth at bedtime. 90 Tablet 3 05/08/2024 Active Empagliflozin 25 MG Oral Tablet (Jardiance)Indicatio ns:Type 2 diabetes mellitus with hyperglycemia, with long-term current use of insulin (HCC) Take 1 Tablet by mouth in the morning. 90 Tablet 1 05/08/2024 Active Topiramate 50 MG Oral Tablet (topAMAX)Indications :Chronic migraine without aura without status migrainosus, not intractable Take 1 Tablet by mouth in the morning and 1 Tablet before bedtime. TAKE 1 TABLET BY MOUTH EVERY MORNING AND BEFORE BEDTIME. 60 Tablet 3 05/07/2024 Active Triamcinolone Acetonide 0.1 % External Cream (Aristocort)Indicati ons:Heat rash APPLY TO THE AFFECTED AREA TOPICALLY TWO TIMES A DAY 80 g 2 01/14/2023 05/07/20 24 Discontinu ed(Refill) metFORMIN HCl 1000 MG Oral Tablet (Glucophage)Indicati ons:Type 2 diabetes mellitus with hyperglycemia, with long-term current use of insulin (HCC) TAKE 1 TABLET BY MOUTH TWICE A DAY WITH BREAKFAST AND DINNER 180 Tablet 01/13/2024 05/07/20 24 Discontinu ed(Refill) Zyloprim 100 MG Oral Tablet (Allopurinol)Indicat ions:Gouty arthropathy TAKE 1 TABLET BY MOUTH ONCE DAILY 90 Tablet 1 02/03/2024 05/07/20 24 Discontinu ed(Refill) Singulair 10 MG Oral Tablet (montelukast)Indicat ions:Mild persistent asthma without complication TAKE 1 TABLET BY MOUTH ONCE DAILY 90 Tablet 1 02/03/2024 05/07/20 24 Discontinu ed(Refill) Levocetirizine Dihydrochloride 5 MG Oral TabletIndications:Po st-nasal drainage TAKE 1/2 TABLET BY MOUTH BEFORE BEDTIME 45 Tablet 1 02/03/2024 05/07/20 24 Discontinu ed(Refill) Omeprazole 20 MG Oral Capsule Delayed Release (PriLOSEC)Indication s:Gastro-esophageal reflux disease without esophagitis Take 1 Capsule by mouth in the morning and 1 Capsule before bedtime. 180 Capsule 1 02/05/2024 05/07/20 24 Discontinu ed(Refill) Levothyroxine Sodium 25 MCG Oral Tablet (Levoxyl)Indications :Acquired hypothyroidism TAKE 1 TABLET BY MOUTH AT LEAST 30 MINUTES PRIOR TO BREAKFAST OR OTHER MEDS 30 Tablet 04/17/2024 05/07/20 24 Discontinu ed(Refill) Atorvastatin Calcium 20 MG Oral Tablet (Lipitor)Indications :Dyslipidemia, goal LDL below 100 TAKE 1 TABLET BY MOUTH AT BEDTIME 30 Tablet 04/17/2024 05/07/20 24 Discontinu ed(Refill) Jardiance 25 MG Oral Tablet (Empagliflozin)Indic ations:Type 2 diabetes mellitus with hyperglycemia, with long-term current use of insulin (HCC) TAKE 1 TABLET BY MOUTH ONCE DAILY 30 Tablet 04/17/2024 05/07/20 24 Discontinu ed(Refill) documented as of this encounter (statuses as of 05/08/2024) Active Problems Problem Noted Date Diagnosed Date [...] as of this encounter (statuses as of 05/08/2024) Resolved Problems Problem Noted Date Diagnosed Date [...] as of this encounter (statuses as of 05/08/2024) Immunizations Name Administration Dates Next Due COVID-19 mRNA, LNP-s, No Pre serve, 2-Dose Series (Moderna) 09/26/2021,03/15/2021,02/08/2021 COVID-19, MRNA-LNP, 23-24, P F, 50 MCG/0.5 mL, 12 YRS AND ABOVE, IM (MODERNA-Spikevax) 11/22/2023 Covid-19, Mrna, Lnp-s, Pf, B ivalent, 50 Mcg, IM, 12 yrs and above (Moderna) 11/02/2022 Hepatitis B, 20+ yrs 09/04/1999,04/04/1999,03/04 PPD 04/15/2017,09/21/2011,12/02/2006 Pneumococcal Conjugate Vacci ne, 20-valent ([id number]) 01/14/2023 Pneumococcal Polysaccharide PPV23 (Pneumovax) 09/23/2006 Season [...] 04/21/2024 Does the household have a re lar source of income? (Household - for ages [...] on file documented as of this encounter Miscellaneous Notes * Telephone Encounter - Christian Carballo MD - 05/08/2024 9:48 AM EDT Signed Prescriptions: Disp Refills Triamcinolone Acetonide 0.1 % External Cre*80 g 2 Sig: APPLY TO THE AFFECTED AREA TOPICALLY TWO TIMES A DAY Authorizing Provider: CHRISTIAN CARBALLO metFORMIN HCl 1000 MG Oral Tablet (Glucoph*180 Ta*1 Sig: TAKE 1 TABLET BY MOUTH TWICE A DAY WITH BREAKFAST AND DINNER Authorizing Provider: CHRISTIAN CARBALLO Ordering User: EDIE ROSE Allopurinol 100 MG Oral Tablet 90 Tab*1 Sig: Take 1 Tablet by mouth in the morning. Authorizing Provider: CHRISTIAN CARBALLO Ordering User: EDIE ROSE Montelukast Sodium 10 MG Oral Tablet (Sing*90 Tab*1 Sig: Take 1 Tablet by mouth in the morning. Authorizing Provider: CHRISTIAN CARBALLO Ordering User: EDIE ROSE Levocetirizine D ihydrochloride 5 MG Oral T*45 Tab*1 Sig: TAKE 1/2 TABLET BY MOUTH BEFORE BEDTIME Authorizing Provider: CHRISTIAN CARBALLO Ordering User: EDIE ROSE Omeprazole 20 MG Oral Capsule Delayed Rele*180 Ca*1 Sig: Take 1 Capsule by mouth in the morning and 1 Capsule before bedtime. Authorizing Provider: CHRISTIAN CARBALLO Ordering User: EDIE ROSE Levothyroxine Sodiu m 25 MCG Oral Tablet (L*90 Tab*1 Sig: TAKE 1 TABLET BY MOUTH AT LEAST 30 MINUTES PRIOR TO BREAKFAST OR OTHER MEDS Authorizing Provider: CHRISTIAN CARBALLO Ordering User: EDIE ROSE Atorvastatin Calcium 20 MG Oral Tablet (Li*90 Tab*3 Sig: Take 1 Tablet by mouth at bedtime. Authorizing Provider: CHRISTIAN CARBALLO Ordering User: EDIE ROSE Empagliflozin 25 MG Oral Tablet (Jardiance)90 Tab*1 Sig: Take 1 Tablet by mouth in the morning. Authorizing Provider: CHRISTIAN CARBALLO Ordering User: EDIE ROSE Refused Prescriptions: Disp Refills Amitriptyline HCl 25 MG Oral Tablet (Elavi*90 Tab*3 Sig: TAKE 1 TABLET BY MOUTH BEFORE BEDTIME Refused By: EDIE ROSE Reason for Refusal: Too soon Fenofibrate Micronize d 67 MG Oral Capsule 30 Cap*5 Sig: Take 1 Capsule by mouth daily. Refused By: EDIE ROSE Reason for Refusal: Too soon * Telephone Encounter - Edie Rose, [facility] - 05/08/2024 9:48 AM EDTPending Prescriptions: Disp Refills Triamcinolone Acetonide 0.1 % External Cre*80 g 2 Sig: APPLY TO THE AFFECTED AREA TOPICALLY TWO TIMES A DAY Signed Prescriptions: Disp Refills metFORMIN HCl 1000 MG Oral Tablet (Glucoph*180 Ta*1 Sig: TAKE 1 TABLET BY MOUTH TWICE A DAY WITH BREAKFAST AND DINNER Authorizing Provider: CHRISTIAN CARBALLO Ordering User: EDIE ROSE Allopurinol 100 MG Oral Tablet 90 Tab*1 Sig: Take 1 Tablet by mouth in the morning. Authorizing Provider: CHRISTIAN CARBALLO Ordering User: EDIE ROSE Montelukast Sodium 10 MG Oral Tablet (Sing*90 Tab*1 Sig: Take 1 Tablet by mouth in the morning. Authorizing Provider: CHRISTIAN CARBALLO Ordering User: EDIE ROSE Levocetirizine Dihydrochloride 5 MG Oral T*45 Tab*1 Sig: TAKE 1/2 TABLET BY MOUTH BEFORE BEDTIME Authorizing Provider: CHRISTIAN CARBALLO Ordering User: EDIE ROSE Omeprazole 20 MG Oral Capsule Delayed Rele*180 Ca*1 Sig: Take 1 Capsule by mouth in the morning and 1 Capsule before bedtime. Authorizing Provider: CHRISTIAN CARBALLO Ordering User: EDIE ROSE Le vothyroxine Sodium 25 MCG Oral Tablet (L*90 Tab*1 Sig: TAKE 1 TABLET BY MOUTH AT LEAST 30 MINUTES PRIOR TO BREAKFAST OR OTHER MEDS Authorizing Provider: CHRISTIAN CARBALLO Ordering User: EDIE ROSE Atorvastatin Calcium 20 MG Oral Tablet (Li*90 Tab*3 Sig: Take 1 Tablet by mouth at bedtime. Authorizing Provider: CHRISTIAN CARBALLO Ordering User: EDIE ROSE Emp agliflozin 25 MG Oral Tablet (Jardiance)90 Tab*1 Sig: Take 1 Tablet by mouth in the morning. Authorizing Provider: CHRISTIAN CARBALLO Ordering User: EDIE ROSE Refused Prescriptions: Disp Refills Amitriptyline HCl 25 MG Oral Tablet (Elavi*90 Tab*3 Sig: TAKE 1 TABLET BY MOUTH BEFORE BEDTIME Refused By: EDIE ROSE Reason for Refusal: Too soon Feno fibrate Micronized 67 MG Oral Capsule 30 Cap*5 Sig: Take 1 Capsule by mouth daily. Refused By: EDIE ROSE Reason for Refusal: Too soon * Telephone Encounter - Edie Rose RPh - 05/08/2024 9:38 AM EDT [facility] is currently not authorized to approve refills for Triamcinolone cream per refill protocol. Please approve if appropriate. Patient's TSH is elevated but free T4 is in normal range TSH Results: Lab Results Component Value Date/Time [facility] - [facility] 4.58 (H) 04/24/2024 07:35 AM FREET4 Date Value Ref Range Status 04/24/2024 1.1 0.9 - 1.7 ng/dL Final Levothyroxine refills approved until 11/05/2024. Thank you, Edie Rose, PharmD Clinical Pharmacist [facility] ([facility]) [phone] 05/08/2024, 9:39 AM documented in this encounter Plan of Treatment Upcoming Encounters Date Type Department Care Team (Late st Contact Info) Description 05/13/2024 2:40 PM EDT Office Visit Pharmacy, [address] [place] [id number] [place] [address] 05/27/2024 3:30 PM EDT Imaging Radiology [address] [place] [address] 11/05/2024 4:20 PM EST Office Visit Family Medicine [address] [place] [phone] Sharlene Pacheco [address] [place] [address] 05/07/2025 4:20 PM EDT Office Visit Family Medicine [address] [place] [phone] Christian Carballo MD [address] [place] [address] [place] [address] Health Maintenance Due Date Last Done Comments HIV Screening 1979 Colonoscopy 2009 Sigmoidoscopy 2009 Zoster Vaccines (1 of 2) 2014 CKD PHOS USE SMARTSET 86718 01/22/2017 04/0 01/2016, 07/26/2015, 02/25/2015, Additional history exists Fecal Occult Blood Test 04/18/2018 04/18/2017, 11/27 Depression Screening 02/06/2023 02/06/2022 CKD HGB USE SMARTSET 12988 01/12/202401/11, 01/11/2023, 12/08/2021, Additional history exists Mammogram 04/09/2024 04/09/2023, 04/2022, 11/25/2020, Additional history exists *SPIROMETRY ONCE FOR [...] as of this encounter Visit Diagnoses Diagnosis Heat rash Prickly heat Type 2 diabetes mellitus with hyperglycemia, with long-term current use of insulin (HCC) Gouty arthropathy Gouty arthropathy, unspecified Mild persistent asthma without complication Unspecified asthma Post-nasal drainage Unspecified sinusitis (chronic) Gastro-esophageal reflux disease without esophagitis Esophageal reflux Acquired hypothyroidism Unspecified hypothyroidism Dyslipidemia, goal LDL below 100 Other and unspecified hyperlipidemia documented in this encounter Care Teams Associate Professor Of Physics Relationship Specialty Start Date End Date Christian Carballo MD [address] [place] [address] [place] [id number] PCP - General Family Medicine 07/12/22 documented as of this encounter
--- OUTSIDE RECORDS SUMMARY | 2024-06-08 23:19 | External Medical Summary | Summary of Care ---
Author Name Unknown Organization [facility] Address [address] [facility] [place] [address] Phone [phone] Care Team Providers Care Director Of Retail Name Role Phone Sarbjit Carballo MD Primary Care Provide r Reason for Visit * Reason Onset Date Comments Medication Refill 05/07/2024 Encounter Details Date Type Department Care Team (Late st Contact Info) Description 05/07/2024 Refill Neurology, [place] [facility] [place] [address] She Agosto PA-C [facility] [place] [phone] Chronic migraine without aura without status migrainosus, not intractable Allergies Active Allergy Reactions Criticality Noted Date Comments Bee Venom High 07/01/2017 Demerol Rash 03/01/2014 Lisinopril 03/07/2018 hyperkalemia Meperidine 01/26/2021 Other reaction(s): rash Meperidine Hcl High 03/29/2021 Penicillin G High 09/16/2001 Penicillins 01/03/2004 Other reaction(s): Other (See Comments) "Extremity stiffness" documented as of this encounter (statuses as of 05/07/2024) Medications Medication Sig Dispensed Refills Start Date End Date Status Blood Glucose Monitoring Suppl ([employer] VERIO) w/Device KIT Use up to 4 times a day E11.9 1 Kit 09/03/2019 Active Aspirin EC 81 MG Oral Tablet Delayed ReleaseIndications:T ype 2 diabetes mellitus with hemoglobin A1c goal of less than 8.0% ([facility]) Take 1 Tab by mouth daily. 100 Tab 3 11/08/2020 Active OneTouch Delica Plus [id number] :Type 2 diabetes mellitus with hyperglycemia, with long-term current use of insulin ([facility]) Use to test blood sugar TWICE a day dxE11.9 200 Each 3 12/25/2021 Active Brimonidine Tartrate 0.2 % Ophthalmic Solution (Alphagan) INSTILL 1 DROP BY OPHTHALMIC ROUTE 2 TIMES EVERY DAY OK FOR 90 DAY SUPPLY. 05/26/2022 Active Triamcinolone Acetonide 0.1 % External Cream (Aristocort)Indicati ons:Heat rash APPLY TO THE AFFECTED AREA TOPICALLY TWO TIMES A DAY 80 g 2 01/14/2023 Active Levalbuterol Tartrate 45 MCG/ACT Inhalation Aerosol (Xopenex HFA) Inhale 1 Puff by mouth every 4 hours as needed for Wheezing. 15 g 11 05/23/2023 Active Metoprolol Succinate ER 25 MG Oral Tablet Extended Release 24 Hour (toPROL XL)Indications:Tachy cardia, unspecified TAKE 1 TABLET BY MOUTH EVERY DAY IN THE MORNING 90 Tablet 3 08/08/2023 Active Fluticasone-Salmeter ol 230-21 MCG/ACT Inhalation Aerosol [...] insulin ([facility]) TAKE 1 TABLET BY MOUTH TWICE A DAY WITH BREAKFAST AND DINNER 180 Tablet 01/13/2024 Active OneTouch Verio In Vitro Strip (Glucose Blood)Indications:Ty pe 2 diabetes mellitus with hyperglycemia, with long-term current use of insulin ([facility]) USE TO TEST BLOOD SUGAR TWICE A DAY. DX E11.9 200 Strip 3 01/20/2024 Active Zyloprim 100 MG Oral Tablet (Allopurinol)Indicat ions:Gouty arthropathy TAKE 1 TABLET BY MOUTH ONCE DAILY 90 Tablet 1 02/03/2024 Active Singulair 10 MG Oral Tablet (montelukast)Indicat ions:Mild persistent asthma without complication TAKE 1 TABLET BY MOUTH ONCE DAILY 90 Tablet 1 02/03/2024 Active Levocetirizine Dihydrochloride 5 MG Oral TabletIndications:Po st-nasal drainage TAKE 1/2 TABLET BY MOUTH BEFORE BEDTIME 45 Tablet 1 02/03/2024 Active Amitriptyline HCl 25 MG Oral Tablet (Elavil) TAKE 1 TABLET BY MOUTH BEFORE BEDTIME 90 Tablet 3 02/05/2024 Active Omeprazole 20 MG Oral Capsule Delayed Release (PriLOSEC)Indication s:Gastro-esophageal reflux disease without esophagitis Take 1 Capsule by mouth in the morning and 1 Capsule before bedtime. 180 Capsule 1 02/05/2024 Active Levothyroxine Sodium 25 MCG Oral Tablet (Levoxyl)Indications :Acquired hypothyroidism TAKE 1 TABLET BY MOUTH AT LEAST 30 MINUTES PRIOR TO BREAKFAST OR OTHER MEDS 30 Tablet 04/17/2024 Active Atorvastatin Calcium 20 MG Oral Tablet (Lipitor)Indications :Dyslipidemia, goal LDL below 100 TAKE 1 TABLET BY MOUTH AT BEDTIME 30 Tablet 04/17/2024 Active Jardiance 25 MG Oral Tablet (Empagliflozin)Indic ations:Type 2 diabetes mellitus with hyperglycemia, with long-term current use of insulin (HCC) TAKE 1 TABLET BY MOUTH ONCE DAILY 30 Tablet 04/17/2024 Active Trulicity 0.75 MG/0.5ML Subcutaneous Solution Pen-injector (Dulaglutide)Indicat ions:Type 2 diabetes mellitus with hemoglobin A1c goal of less than 7.0% (HCC) Inject 0.75 mg under the skin once a week. 2 mL 05/05/2024 Active Spacer/Aero-Holding Chambers DeviceIndications:Mi ld persistent asthma without complication Use with inhaler. 1 Each 05/05/2024 Active Fenofibrate Micronized 67 MG Oral Capsule TAKE 1 CAPSULE BY MOUTH DAILY. 30 Capsule 5 05/07/2024 Active Topiramate 50 MG Oral Tablet (topAMAX)Indications :Chronic migraine without aura without status migrainosus, not intractable Take 1 Tablet by mouth in the morning and 1 Tablet before bedtime. TAKE 1 TABLET BY MOUTH EVERY MORNING AND BEFORE BEDTIME. 60 Tablet 3 05/07/2024 Active Topiramate 50 MG Oral Tablet (topAMAX)Indications :Chronic migraine without aura without status migrainosus, not intractable TAKE 1 TABLET BY MOUTH EVERY MORNING AND BEFORE BEDTIME 60 Tablet 04/20/2024 05/07/20 24 Discontinu ed(Refill) documented as of this encounter (statuses as of 05/07/2024) Active Problems Problem Noted Date Diagnosed Date [...] as of this encounter (statuses as of 05/07/2024) Resolved Problems Problem Noted Date Diagnosed Date [...] as of this encounter (statuses as of 05/07/2024) Immunizations Name Administration Dates Next Due COVID-19 mRNA, LNP-s, No Pre serve, 2-Dose Series (Moderna) 09/26/2021,03/15/2021,02/08/2021 COVID-19, MRNA-LNP, 23-24, P F, 50 MCG/0.5 mL, 12 YRS AND ABOVE, IM (MODERNA-Spikevax) 11/22/2023 Covid-19, Mrna, Lnp-s, Pf, B ivalent, 50 Mcg, IM, 12 yrs and above (Moderna) 11/02/2022 Hepatitis B, 20+ yrs 09/04/1999,04/04/1999,03/04 PPD 04/15/2017,09/21/2011,12/02/2006 Pneumococcal Conjugate Vacci ne, 20-valent ([id number]) 01/14/2023 Pneumococcal Polysaccharide PPV23 (Pneumovax) 09/23/2006 Season [...] encounter Miscellaneous Notes * Telephone Encounter - Silviano Franklin DO - 05/07/2024 2:39 PM EDT Signed Prescriptions: Disp Refills Topiramate 50 MG Oral Tablet (topAMAX) 60 Tab*3 Sig: Take 1 Tablet by mouth in the morning and 1 Tablet before bedtime. TAKE 1 TABLET BY MOUTH EVERY MORNING AND BEFORE BEDTIME. Authorizing Provider: SILVIANO FRANKLIN * Telephone Encounter - Rita Nunes LPN - 05/07/2024 2:23 PM EDTPending Prescriptions: Disp Refills Topiramate 50 MG Oral Tablet (topAMAX) 60 Tab*3 Sig: Take 1 Tablet by mouth in the morning and 1 Tablet before bedtime. TAKE 1 TABLET BY MOUTH EVERY MORNING AND BEFORE BEDTIME. * Telephone Encounter - Rita Nunes LPN - 05/07/2024 2:17 PM EDT Per last ov note, pt can follow up with office on an as needed basis. documented in this encounter Plan of Treatment Upcoming Encounters Date Type Department Care Team (Late st Contact Info) Description 05/13/2024 2:40 PM EDT Office Visit Pharmacy, [address] [place] [address] [place] [address] 05/27/2024 3:30 PM EDT Imaging Radiology [address] [place] [address] 11/05/2024 4:20 PM EST Office Visit Family Medicine [address] [place] [phone] Sharlene Pacheco CRNP [address] [place] [address] [place] [address] 05/07/2025 4:20 PM EDT Office Visit [address] [place] [phone] Sarbjit Carballo MD [address] [place] [address] [place] [address] Health Maintenance Due Date Last Done Comments HIV Screening 1979 Colonoscopy 2009 Sigmoidoscopy 2009 Zoster Vaccines (1 of 2) 2014 CKD PHOS USE SMARTSET 23380 01/22/2017 04/0 01/2016, 07/26/2015, 02/25/2015, Additional history exists Fecal Occult Blood Test 04/18/2018 04/18/2017, 11/27 Depression Screening 02/06/2023 02/06/2022 CKD HGB USE SMARTSET 48092 01/12/202401/11, 01/11/2023, 12/08/2021, Additional history exists Mammogram [...] as of this encounter Visit Diagnoses Diagnosis Chronic migraine without aura without status migrainosus, not intractable Chronic migraine without aura, without mention of intractable migraine without mention of status migrainosus documented in this encounter Care Teams Director Of Retail Relationship Specialty Start Date End Date Sarbjit Carballo MD [address] [place] [address] [place] [address] PCP - General Family Medicine 07/12/22 documented as of this encounter
--- OUTSIDE RECORDS SUMMARY | 2024-06-08 23:19 | External Medical Summary | Summary of Care ---
Author Name Unknown Organization [facility] Address [address] [place] [address] Phone [phone] Care Team Providers Care Typewriter Assembler Name Role Phone Sarbjit Carballo MD Primary Care Provide r Reason for Visit * Reason Comments eRx-Medication Refill Encounter Details Date Type Department Care Team (Late st Contact Info) Description 05/27/2024 Refill Family Medicine [address] [phone] Sarbjit Carballo MD [address] [place] [address] [place] [address] Type 2 diabetes mellitus with hemoglobin A1c goal of less than 7.0% ([facility]) Allergies Active Allergy Reactions Criticality Noted Date Comments Bee Venom High 07/01/2017 Demerol Rash 03/01/2014 Lisinopril 03/07/2018 hyperkalemia Meperidine 01/26/2021 Other reaction(s): rash Meperidine Hcl High 03/29/2021 Penicillin G High 09/16/2001 Penicillins 01/03/2004 Other reaction(s): Other (See Comments) "Extremity stiffness" documented as of this encounter (statuses as of 05/28/2024) Medications Medication Sig Dispensed Refills Start Date End Date Status Aspirin EC 81 MG Oral Tablet Delayed ReleaseIndications:Ty pe 2 diabetes mellitus with hemoglobin A1c goal of less than 8.0% (HCC) Take 1 Tab by mouth daily. 100 Tab 3 11/08/2020 Active Brimonidine Tartrate 0.2 % Ophthalmic Solution (Alphagan) INSTILL 1 DROP BY OPHTHALMIC ROUTE 2 TIMES EVERY DAY OK FOR 90 DAY SUPPLY. 05/26/2022 Active Levalbuterol Tartrate 45 MCG/ACT Inhalation Aerosol (Xopenex HFA) Inhale 1 Puff by mouth every 4 hours as needed for Wheezing. 15 g 11 05/23/2023 Active Fluticasone-Salmetero l 230-21 MCG/ACT Inhalation Aerosol (Advair HFA)Indications:Mild persistent asthma without complication Inhale 2 Puffs by mouth in the morning and 2 Puffs before bedtime. Rinse mouth after use.. 12 g 5 08/13/2023 Active CPAP every night at bedtime. Active Amitriptyline HCl 25 MG Oral Tablet (Elavil) TAKE 1 TABLET BY MOUTH BEFORE BEDTIME 90 Tablet 3 02/05/2024 Active Trulicity 0.75 MG/0.5ML Subcutaneous Solution Pen-injector (Dulaglutide)Indicati ons:Type 2 diabetes mellitus with hemoglobin A1c goal of less than 7.0% ([facility]) Inject 0.75 mg under the skin once a week. 2 mL 05/05/2024 Active Spacer/Aero-Holding Chambers DeviceIndications:Mil d persistent asthma without complication Use with inhaler. 1 Each 05/05/2024 Active Fenofibrate Micronized 67 MG Oral Capsule TAKE 1 CAPSULE BY MOUTH DAILY. 30 Capsule 5 05/07/2024 Active Metoprolol Succinate ER 25 MG Oral Tablet Extended Release 24 Hour (toPROL XL)Indications:Tachyc ardia, unspecified Take 1 Tablet by mouth daily. 90 Tablet 05/07/2024 Active Triamcinolone Acetonide 0.1 % External Cream (Aristocort)Indicatio ns:Heat rash APPLY TO THE AFFECTED AREA TOPICALLY TWO TIMES A DAY 80 g 2 05/08/2024 Active metFORMIN HCl 1000 MG Oral Tablet (Glucophage)Indicatio ns:Type 2 diabetes mellitus with hyperglycemia, with long-term current use of insulin ([facility]) TAKE 1 TABLET BY MOUTH TWICE A DAY WITH BREAKFAST AND DINNER 180 Tablet 1 05/08/2024 Active Allopurinol 100 MG Oral TabletIndications:Gou ty arthropathy Take 1 Tablet by mouth in the morning. 90 Tablet 1 05/08/2024 Active Montelukast Sodium 10 MG Oral Tablet (Singulair)Indication s:Mild persistent asthma without complication Take 1 Tablet by mouth in the morning. 90 Tablet 1 05/08/2024 Active Levocetirizine Dihydrochloride 5 MG Oral TabletIndications:Pos t-nasal drainage TAKE 1/2 TABLET BY MOUTH BEFORE BEDTIME 45 Tablet 1 05/08/2024 Active Omeprazole 20 MG Oral Capsule Delayed Release (PriLOSEC)Indications :Gastro-esophageal reflux disease without esophagitis Take 1 Capsule by mouth in the morning and 1 Capsule before bedtime. 180 Capsule 1 05/08/2024 Active Levothyroxine Sodium 25 MCG Oral Tablet (Levoxyl)Indications: Acquired hypothyroidism TAKE 1 TABLET BY MOUTH AT LEAST 30 MINUTES PRIOR TO BREAKFAST OR OTHER MEDS 90 Tablet 1 05/08/2024 Active Atorvastatin Calcium 20 MG Oral Tablet (Lipitor)Indications: Dyslipidemia, goal LDL below 100 Take 1 Tablet by mouth at bedtime. 90 Tablet 3 05/08/2024 Active Empagliflozin 25 MG Oral Tablet (Jardiance)Indication s:Type 2 diabetes mellitus with hyperglycemia, with long-term current use of insulin (HCC) Take 1 Tablet by mouth in the morning. 90 Tablet 1 05/08/2024 Active Topiramate 50 MG Oral Tablet (topAMAX)Indications: Chronic migraine without aura without status migrainosus, not intractable Take 1 Tablet by mouth in the morning and 1 Tablet before bedtime. TAKE 1 TABLET BY MOUTH EVERY MORNING AND BEFORE BEDTIME. 60 Tablet 3 05/07/2024 Active OneTouch Verio Flex System w/Device Kit Use as directed. Monitor blood sugars up to three times daily. DxE11.9 1 Kit 05/13/2024 Active OneTouch Verio In Vitro Strip (Glucose Blood) Use as directed to monitor blood sugars up to three times daily. DxE11.9 300 Strip 3 05/13/2024 Active OneTouch Delica Lancets 33G Use as directed to monitor blood sugars up to three times daily. DxE11.9 300 Each 3 05/13/2024 Active Trulicity 1.5 MG/0.5ML Subcutaneous Solution Pen-injector (Dulaglutide) Inject 1.5 mg under the skin once a week. DxE11.9 2 mL 3 05/13/2024 Active documented as of this encounter (statuses as of 05/28/2024) Active Problems Problem Noted Date Diagnosed Date [...] as of this encounter (statuses as of 05/28/2024) Resolved Problems Problem Noted Date Diagnosed Date [...] as of this encounter (statuses as of 05/28/2024) Immunizations Name Administration Dates Next Due COVID-19 mRNA, LNP-s, No Pre serve, 2-Dose Series (Moderna) 09/26/2021,03/15/2021,02/08/2021 COVID-19, MRNA-LNP, 23-24, P F, 50 MCG/0.5 mL, 12 YRS AND ABOVE, IM (MODERNA-Spikevax) 11/22/2023 Covid-19, Mrna, Lnp-s, Pf, B ivalent, 50 Mcg, IM, 12 yrs and above (Moderna) 11/02/2022 Hepatitis B, 20+ yrs 09/04/1999,04/04/1999,03/04 PPD 04/15/2017,09/21/2011,12/02/2006 Pneumococcal Conjugate Vacci ne, 20-valent ([id number]) 01/14/2023 Pneumococcal Polysaccharide PPV23 (Pneumovax) 09/23/2006 Season [...] encounter Miscellaneous Notes * Telephone Encounter - Janeth Smith RPh - 05/28/2024 10:42 AM EDT Refused Prescriptions: Disp Refills Trulicity 0.75 MG/0.5ML Subcutaneous Solut*2 mL 0 Sig: Inject 0.75 mg under the skin once a week.Refused By: JANETH SMITH for Refusal: Refill Not Appr opriate * Telephone Encounter - Janeth Smith RPh - 05/28/2024 10:41 AM EDT Pt to begin Trulicity 1.5mg. Sweetie, Janeth Smith RPh Clinical Pharmacist [facility] ([facility]) [phone] documented in this encounter Plan of Treatment Upcoming Encounters Date Type Department Care Team (Late st Contact Info) Description 06/11/2024 3:30 PM EDT Office Visit Pharmacy, [address] [place] [address] [place] [address] 11/05/2024 4:20 PM EST Office Visit [address] [place] [phone] Sharlene Pacheco CRNP [address] [place] [address] [place] [address] 05/07/2025 4:20 PM EDT [address] [phone] Sarbjit Carballo MD [address] [place] [address] [place] [address] 05/31/2025 3:30 PM EDT Imaging Radiology [address] [place] [address] Health Maintenance Due Date Last Done Comments HIV Screening 1979 Colonoscopy 2009 Sigmoidoscopy 2009 Zoster Vaccines (1 of 2) 2014 CKD PHOS USE SMARTSET 52906 01/22/2017 04/0 01/2016, 07/26/2015, 02/25/2015, Additional history exists Fecal Occult Blood Test 04/18/2018 04/18/2017, 11/27 Depression Screening 02/06/2023 02/06/2022 CKD HGB USE SMARTSET 15833 01/12/202401/11, 01/11/2023, 12/08/2021, Additional history exists GFR 05/04/2024 11/04/2023, 12/20, 12/08/2021, Additional history exists Influenza Vaccine (FLU shot) (#1) 2024 10/28/2023, 07/16/2022, 08/09/2021, Additional history exists HbA1c 10/25/2024 04/24/2024, 10/21, 01/11/2023, Additional history exists Cologuard 10/30/2024 10/30/2021, 09/22, 10/19/2021, Additional history exists Colorectal Cancer Screening 10/30/2024 Diabetic Eye Exam 03/23/2025 03/23/2024, , 11/04/2023, Additional history exists TSH 04/24/2025 04/24/2024, 12/20, 12/08/2021, Additional history exists Albumin/Creatinine Ratio 04/28/2025 024, 01/11/2023, 12/08/2021, Additional history exists Diabetic Foot Exam 05/05/2025 05/05/2024, 0 01/14/2023, 12/12/2021, Additional history exists Mammogram 05/27/2025 05/27/2024, 03/22, 11/27/2021, Additional history exists DTaP,Tdap,and Td Vaccines (4 [...] A1c goal of less than 7.0% (HCC) Screening mammogram for breast cancer documented in this encounter Care Teams Typewriter Assembler Relationship Specialty Start Date End Date Sarbjit Carballo MD [address] [place] [address] [place] [address] PCP - General Family Medicine 07/12/22 documented as of this encounter
--- OUTSIDE RECORDS SUMMARY | 2024-06-08 23:19 | External Medical Summary | Summary of Care ---
Author Name Unknown Organization [facility] Address [address] [place] [place] [address] Phone [phone] Care Team Providers Care Auto Mechanics Teacher Name Role Phone Sarbjit Carballo MD Primary Care Provide r Reason for Visit * Reason Comments Outpatient Testing Encounter Details Date Type Department Care Team (Late st Contact Info) Description 04/28/2024 12:30 PM EDT Laboratory Laboratory [address] [place] [phone] , Specimen Drop Off [address] [place] [address] Arrived Allergies Active Allergy Reactions Criticality Noted Date Comments Bee Venom High 07/01/2017 Demerol Rash 03/01/2014 Lisinopril 03/07/2018 hyperkalemia Meperidine 01/26/2021 Other reaction(s): rash Meperidine Hcl High 03/29/2021 Penicillin G High 09/16/2001 Penicillins 01/03/2004 Other reaction(s): Other (See Comments) "Extremity stiffness" documented as of this encounter (statuses as of 04/28/2024) Medications Medication Sig Dispensed Refills Start Date End Date Status Blood Glucose Monitoring Suppl ([employer] VERIO) w/Device KIT Use up to 4 times a day E11.9 1 Kit 09/03/2019 Active Aspirin EC 81 MG Oral Tablet Delayed ReleaseIndications:Ty pe 2 diabetes mellitus with hemoglobin A1c goal of less than 8.0% (HCC) Take 1 Tab by mouth daily. 100 Tab 3 11/08/2020 Active OneTouch Delica Plus [id number]: Type 2 diabetes mellitus with hyperglycemia, with long-term current use of insulin ([facility]) Use to test blood sugar TWICE [...] Release 24 Hour (toPROL XL)Indications:Tachyc ardia, unspecified TAKE 1 TABLET BY MOUTH EVERY DAY IN THE MORNING 90 Tablet 3 08/08/2023 Active Fluticasone-Salmetero l 230-21 MCG/ACT Inhalation Aerosol (Advair HFA)Indications:Mild persistent asthma without complication Inhale 2 Puffs by mouth in the morning and 2 Puffs before bedtime. Rinse mouth after use.. 12 g 5 08/13/2023 Active CPAP every night at bedtime. Active Trulicity 3 MG/0.5ML Subcutaneous Solution Pen-injector (Dulaglutide)Indicati ons:Type 2 diabetes mellitus with hemoglobin A1c goal of less than 7.0% ([facility]),Type 2 diabetes mellitus with hyperglycemia, with long-term current use of insulin ([facility]) Inject 3 mg under the skin once a week. 2 mL 5 12/18/2023 Active metFORMIN HCl 1000 MG Oral Tablet (Glucophage)Indicatio ns:Type 2 diabetes mellitus with hyperglycemia, with long-term current use of insulin ([facility]) TAKE 1 TABLET BY MOUTH TWICE A DAY WITH BREAKFAST AND DINNER 180 Tablet 01/13/2024 Active OneTouch Verio In Vitro Strip (Glucose Blood)Indications:Typ e 2 diabetes mellitus with hyperglycemia, with long-term current use of insulin ([facility]) USE TO TEST BLOOD SUGAR TWICE A DAY. DX E11.9 200 Strip 3 01/20/2024 Active Zyloprim 100 MG Oral Tablet (Allopurinol)Indicati ons:Gouty arthropathy TAKE 1 TABLET BY MOUTH ONCE DAILY 90 Tablet 1 02/03/2024 Active Singulair 10 MG Oral Tablet (montelukast)Indicati ons:Mild persistent asthma without complication TAKE 1 TABLET BY MOUTH ONCE DAILY 90 Tablet 1 02/03/2024 Active Levocetirizine Dihydrochloride 5 MG Oral TabletIndications:Pos t-nasal drainage TAKE 1/2 TABLET BY MOUTH BEFORE BEDTIME 45 Tablet 1 02/03/2024 Active Fenofibrate Micronized 67 MG Oral Capsule Take 1 Capsule by mouth daily. 90 Capsule 02/03/2024 Active Amitriptyline HCl 25 MG Oral [...] Tablet (Lipitor)Indications: Dyslipidemia, goal LDL below 100 TAKE 1 TABLET BY MOUTH AT BEDTIME 30 Tablet 04/17/2024 Active Topiramate 50 MG Oral Tablet (topAMAX)Indications: Chronic migraine without aura without status migrainosus, not intractable TAKE 1 TABLET BY MOUTH EVERY MORNING AND BEFORE BEDTIME 60 Tablet 04/20/2024 Active Jardiance 25 MG Oral Tablet (Empagliflozin)Indica tions:Type 2 diabetes mellitus with hyperglycemia, with long-term current use of insulin (HCC) TAKE 1 TABLET BY MOUTH ONCE DAILY 30 Tablet 04/17/2024 Active documented as of this encounter (statuses as of 04/28/2024) Active Problems Problem Noted Date Diagnosed Date Chronic kidney disease, stage 3a 12/02/2023 Overview: [...] as of this encounter (statuses as of 04/28/2024) Resolved Problems Problem Noted Date Diagnosed Date [...] as of this encounter (statuses as of 04/28/2024) Immunizations Name Administration Dates Next Due COVID-19 mRNA, LNP-s, No Pre serve, 2-Dose Series (Moderna) 09/26/2021,03/15/2021,02/08/2021 COVID-19, MRNA-LNP, 23-24, P F, 50 MCG/0.5 mL, 12 YRS AND ABOVE, IM (MODERNA-Spikevax) 11/22/2023 Covid-19, Mrna, Lnp-s, Pf, B ivalent, 50 Mcg, IM, 12 yrs and above (Moderna) 11/02/2022 Hepatitis B, 20+ yrs 09/04/1999,04/04/1999,03/04 PPD 04/15/2017,09/21/2011,12/02/2006 Pneumococcal Conjugate Vacci ne, 20-valent ([id number]) 01/14/2023 Pneumococcal Polysaccharide PPV23 (Pneumovax) 09/23/2006 Season [...] on file documented as of this encounter Plan of Treatment Upcoming Encounters Date Type Department Care Team (Late st Contact Info) Description 05/05/2024 4:20 PM EDT Office Visit Family Medicine [address] [place] [phone] Sarbjit Carballo MD [address] [place] [address] [place] [phone] Health Maintenance Due Date Last Done Comments HIV Screening 1979 Colonoscopy 2009 Sigmoidoscopy 2009 Zoster Vaccines (1 of 2) 2014 CKD PHOS USE SMARTSET 94273 01/22/201701/2016, 07/26/2015, 02/25/2015, Additional history exists Fecal Occult Blood Test 04/18/2018 04/18/2017, 11/27 Depression Screening 02/06/2023 02/06/2022 Albumin/Creatinine Ratio 01/12/2024 023, 12/08/2021, 11/23/2020, Additional history exists CKD HGB USE SMARTSET 21407 01/12/202401/11, 01/11/2023, 12/08/2021, Additional history exists Diabetic Foot Exam 01/15/2024 01/14/2023, 0 12/12/2021, 11/23/2020, Additional history exists Mammogram 04/09/2024 04/09/2023, 020 04/2022, 11/25/2020, Additional history exists GFR 05/04/2024 11/04/2023, 12/20, 12/08/2021, Additional history exists Influenza Vaccine (FLU shot) (#1) 2024 10/28/2023, 07/16/2022, 08/09/2021, Additional history exists HbA1c 10/25/2024 04/24/2024, 10/21, 01/11/2023, Additional history exists Cologuard 10/30/2024 10/30/2021, 09/22, 10/19/2021, Additional history exists Colorectal Cancer Screening 10/30/2024 Diabetic Eye Exam 11/04/2024 11/04/2023, , 05/08/2021, Additional history exists TSH 04/24/2025 04/24/2024, 12/20, 12/08/2021, Additional history exists DTaP,Tdap,and Td Vaccines (4 [...] Not on filedocumented as of this encounter Care Teams Auto Mechanics Teacher Relationship Specialty Start Date End Date Sarbjit Carballo MD [address] [place] [address] [place] [address] PCP - General Family Medicine 07/12/22 documented as of this encounter
--- OUTSIDE RECORDS SUMMARY | 2024-06-08 23:19 | External Medical Summary | Summary of Care ---
Author Name Unknown Organization [facility] Address [address] [place] [address] Phone [phone] Care Team Providers Care Computer Publisher Name Role Phone Sarbjit Carballo MD Primary Care Provide r Reason for Visit * Reason Onset Date Comments Test Results 04/27/2024 Encounter Details Date Type Department Care Team (Late st Contact Info) Description 04/27/2024 Telephone Family Medicine [address] [phone] Sarbjit Carballo MD [address] [place] [address] [place] [address] Test Results Allergies Active Allergy Reactions Criticality Noted Date Comments Bee Venom High 07/01/2017 Demerol Rash 03/01/2014 Lisinopril 03/07/2018 hyperkalemia Meperidine 01/26/2021 Other reaction(s): rash Meperidine Hcl High 03/29/2021 Penicillin G High 09/16/2001 Penicillins 01/03/2004 Other reaction(s): Other (See Comments) "Extremity stiffness" documented as of this encounter (statuses as of 04/29/2024) Medications Medication Sig Dispensed Refills Start Date End Date Status Blood Glucose Monitoring Suppl ([employer] VERIO) w/Device KIT Use up to 4 times a day E11.9 1 Kit 09/03/2019 Active Aspirin EC 81 MG Oral Tablet Delayed ReleaseIndications:Ty pe 2 diabetes mellitus with hemoglobin A1c goal of less than 8.0% ([facility]) Take 1 Tab by mouth daily. 100 Tab 3 11/08/2020 Active OneTouch Delica Plus [id number]: Type 2 diabetes mellitus with hyperglycemia, with long-term current use of insulin ([facility]) Use to test blood sugar TWICE [...] goal of less than 7.0% ([facility]),Type 2 diabetes mellitus with hyperglycemia, with long-term current use of insulin ([facility]) Inject 3 mg under the skin once a week. 2 mL 5 12/18/2023 Active metFORMIN HCl 1000 MG Oral Tablet (Glucophage)Indicatio ns:Type 2 diabetes mellitus with hyperglycemia, with long-term current use of insulin ([facility]) TAKE 1 TABLET BY MOUTH TWICE A DAY WITH BREAKFAST AND DINNER 180 Tablet 01/13/2024 Active OneTouch Verio In Vitro Strip (Glucose Blood)Indications:Typ e 2 diabetes mellitus with hyperglycemia, with long-term current use of insulin ([facility]) USE TO TEST BLOOD SUGAR TWICE [...] as of this encounter (statuses as of 04/29/2024) Active Problems Problem Noted Date Diagnosed Date [...] as of this encounter (statuses as of 04/29/2024) Resolved Problems Problem Noted Date Diagnosed Date [...] as of this encounter (statuses as of 04/29/2024) Immunizations Name Administration Dates Next Due COVID-19 mRNA, LNP-s, No Pre serve, 2-Dose Series (Moderna) 09/26/2021,03/15/2021,02/08/2021 COVID-19, MRNA-LNP, 23-24, P F, 50 MCG/0.5 mL, 12 YRS AND ABOVE, IM (MODERNA-Spikevax) 11/22/2023 Covid-19, Mrna, Lnp-s, Pf, B ivalent, 50 Mcg, IM, 12 yrs and above (Moderna) 11/02/2022 DT - Diptheria/Tetanus (PEDS) 04/13/2003 Hepatitis B, 20+ yrs 09/04/1999,04/04/1999,03/04 PPD 04/15/2017, 1,12/02/2006,04/13,04/09/2002,03/26/2002 Pneumococcal Conjugate Vacci ne, 20-valent ([id number]) 01/14/2023 Pneumococcal Polysaccharide PPV23 (Pneumovax) 09/23/2006 Season [...] encounter Miscellaneous Notes * Telephone Encounter - Deborah Brian RPh - 04/29/2024 9:08 AM EDT PC to patient 3 times - unable to reach. She has upcoming appointment on 05/05/2024 Hemoglobin AIC Results: Lab Results Component Value Date/Time HEMOGLOBIN A1C - [facility] 9.0 (H) 04/24/2024 07:35 AM HEMOGLOBIN A1C - [facility] 8.4 (H) 11/04/2023 08:27 AM HEMOGLOBIN A1C - [facility] 8.1 (H) 01/11/2023 08:29 AM Patient did not establish with [facility] last year. May have compliance issue. Routing to PCP to review. Thank you, Deborah Brian, PharmD Clinical Pharmacist [facility] ([facility]) 04/29/24 9:09 AM [phone] * Telephone Encounter - Deborah Brian RPh - 04/27/2024 9:26 AM EDT Unable to reach patient at this time. Left message on the answering machine requesting callback regarding high A1C. Pt on jaridance, metformin, trulicity - has there been any compliance issues? Did not establish with mtdm last year; is she willing to re-try? Advised patient to please call [phone]. Please transfer her back to myself. If I'm not available, transfer to next available [facility]. Thank you, Deborah Brian, PharmD Clinical Pharmacist [facility] ([facility]) 04/27/24 9:27 AM [phone] documented in this encounter Plan of Treatment Upcoming Encounters Date Type Department Care Team (Late st Contact Info) Description 05/05/2024 4:20 PM EDT Office Visit Family Medicine [address] [place] [phone] Sarbjit Carballo MD [address] [place] [address] [place] [address] Health Maintenance Due Date Last Done Comments HIV Screening 1979 Colonoscopy 2009 Sigmoidoscopy 2009 Zoster Vaccines (1 of 2) 2014 CKD PHOS USE SMARTSET 53415 01/22/2017 04/0 01/2016, 07/26/2015, 02/25/2015, Additional history exists Fecal Occult Blood Test 04/18/2018 04/18/2017, 11/27 Depression Screening 02/06/2023 02/06/2022 CKD HGB USE SMARTSET 79848 01/12/202401/11, 01/11/2023, 12/08/2021, Additional history exists Diabetic [...] 04/28/2025 024, 01/11/2023, 12/08/2021, Additional history exists DTaP,Tdap,and Td Vaccines [...] filedocumented as of this encounter Care Teams Computer Publisher Relationship Specialty Start Date End Date Sarbjit Carballo MD [address] [place] [address] [place] [id number] PCP - General Family Medicine 07/12/22 documented as of this encounter
--- OUTSIDE RECORDS SUMMARY | 2024-06-08 23:19 | External Medical Summary | Summary of Care ---
Author Name Unknown Organization [facility] [address] [address] Phone [phone] Care Team Providers Care Legal Recruiter Name Role Phone Sarbjit Carballo MD Primary Care Provide r Reason for Visit * Reason Onset Date Comments Medication Refill 05/07/2024 Encounter Details Date Type Department Care Team (Late st Contact Info) Description 05/07/2024 Refill Cardiology, [facility] [address] [place] [address] Tushar Cox, [address] [place] [address] Tachycardia, unspecified Allergies Active Allergy Reactions Criticality Noted Date Comments Bee Venom High 07/01/2017 Demerol Rash 03/01/2014 Lisinopril 03/07/2018 hyperkalemia Meperidine 01/26/2021 Other reaction(s): rash Meperidine Hcl High 03/29/2021 Penicillin G High 09/16/2001 Penicillins 01/03/2004 Other reaction(s): Other (See Comments) "Extremity stiffness" documented as of this encounter (statuses as of 05/07/2024) Medications Medication Sig Dispensed Refills Start Date End Date Status Blood Glucose Monitoring Suppl (A vida é feita de DescontoUCH VERIO) w/Device KIT Use up to 4 times a day E11.9 1 Kit 09/03/2019 Active Aspirin EC 81 MG Oral Tablet Delayed ReleaseIndications:T ype 2 diabetes mellitus with hemoglobin A1c goal of less than 8.0% ([facility]) Take 1 Tab by mouth daily. 100 Tab 3 11/08/2020 Active OneTouch Delica Plus [id number] :Type 2 diabetes mellitus with hyperglycemia, with long-term current use of insulin ([facility]) Use to test blood sugar TWICE [...] with long-term current use of insulin ([facility]) TAKE 1 TABLET BY MOUTH TWICE A DAY WITH BREAKFAST AND DINNER 180 Tablet 01/13/2024 Active OneTouch Verio In Vitro Strip (Glucose Blood)Indications:Ty pe 2 diabetes mellitus with hyperglycemia, with long-term current use of insulin ([facility]) USE TO TEST BLOOD SUGAR TWICE [...] by mouth daily. 90 Tablet 05/07/2024 Active Metoprolol Succinate ER 25 MG Oral Tablet Extended Release 24 Hour (toPROL XL)Indications:Tachy cardia, unspecified TAKE 1 TABLET BY MOUTH EVERY DAY IN THE MORNING 90 Tablet 3 08/08/2023 05/07/20 24 Discontinu ed(Refill) documented as of [...] PPD 04/15/2017,09/21/2011,12/02/2006 Pneumococcal Conjugate Vacci ne, 20-valent ([id number]) 01/14/2023 Pneumococcal Polysaccharide PPV23 (Pneumovax) 09/23/2006 Season [...] encounter Miscellaneous Notes * Telephone Encounter - Nita Devine CMA - 05/07/2024 1:55 PM EDTPending Prescriptions: Disp Refills Metoprolol Succinate ER 25 MG Oral Tablet *90 Tab*0 Sig: Take 1 Tablet by mouth daily. * Telephone Encounter - Nita Devine CMA - 05/07/2024 1:55 PM EDT Scheduling -- please contact pt for follow up. * Telephone Encounter - Nita Devine CMA - 05/07/2024 1:55 PM EDT Did you pend patient's preferred pharmacy and medication before forwarding?yes Pharmacy: [facility] [address] Pending Prescriptions: Disp Refills Metoprolol Succinate ER 25 MG Oral Tablet*90 Tab*0 Sig: Take 1 Tablet by mouth daily. Last Visit: 04/09/2023 (in office), Visit date not found (telemedicine) Next Visit: Visit date not found If no future appointments scheduled, and last appointment is greater than a year ago, please schedule patient for a follow-up appointment Last date the medication was ordered: 08-08-2023 Is this request for a controlled substance?No Urine Drug Screen:No results found for this or any previous visit. Patient Phone Numbers Labs: Lab Results Component Value Date/Time CREAT 1.3 (H) 11/04/2023 08:27 AM CREAT 1.0 09/03/2019 01:25 PM POTASSIUM 5.0 11/04/2023 08:27 AM POTASSIUM 5.0 09/03/2019 01:25 PM TSH 4.58 (H) 04/24/2024 07:35 AM TSH 2.90 09/03/2019 01:25 PM LDLCALC 43 09/25/2018 09:21 AM LDLDIRECT 56 04/24/2024 07:35 AM LDLDIRECT 39 09/03/2019 01:25 PM LDLDIRECT 98 01/08/2011 11:50 AM ALT 20 01/11/2023 08:29 AM ALT 32 09/03/2019 01:25 PM HGBA1C 9.0 (H) 04/24/2024 07:35 AM HGBA1C 13.3 (H) 09/03/2019 01:25 PM documented in this encounter Plan of Treatment Upcoming Encounters Date Type Department Care Team (Late st Contact Info) Description 05/13/2024 2:40 PM EDT Office Visit Pharmacy, [address] [place] [address] [place] [address] 05/27/2024 3:30 PM EDT Imaging Radiology [address] [place] [address] 11/05/2024 4:20 PM EST Office Visit Family Medicine [address] [place] [phone] Sharlene Pacheco CRNP [address] [place] [address] [place] [address] 05/07/2025 4:20 PM EDT Office Visit Family Medicine [address] [place] [phone] Sarbjit Carballo MD [address] [place] [address] [place] [address] Health Maintenance Due Date Last Done Comments HIV Screening 1979 Colonoscopy 2009 Sigmoidoscopy 2009 Zoster Vaccines (1 of 2) 2014 CKD PHOS USE SMARTSET 65822 01/22/2017 040 01/2016, 07/26/2015, 02/25/2015, Additional history exists Fecal Occult Blood Test 04/18/2018 04/18/2017, 11/27 Depression Screening 02/06/2023 02/06/2022 CKD HGB USE SMARTSET 00832 01/12/202401/11, 01/11/2023, 12/08/2021, Additional history exists Mammogram [...] as of this encounter Visit Diagnoses Diagnosis Tachycardia, unspecified documented in this encounter Care Teams Legal Recruiter Relationship Specialty Start Date End Date Sarbjit Carballo MD [address] [place] [address] [place] [address] PCP - General Family Medicine 07/12/22 documented as of this encounter
--- OUTSIDE RECORDS SUMMARY | 2024-06-08 23:19 | External Medical Summary | Summary of Care ---
Author Name Unknown Organization [facility] Address [address] [place] [facility] [place] [facility] [place] [address] Phone [phone] Care Team Providers Care Roll Handler Name Role Phone Sarbjit Carballo MD Primary Care Provide r Reason for Visit * Reason Comments Outpatient Testing Encounter Details Date Type Department Care Team (Late st Contact Info) Description 04/28/2024 12:30 PM EDT Laboratory Laboratory [address] [place] [phone] , Specimen Drop Off [address] [place] [address] Arrived Allergies Active Allergy Reactions Criticality Noted [...] End Date Status Blood Glucose Monitoring Suppl (GrowBLOX VERIO) w/Device KIT Use up to 4 times a day E11.9 1 Kit 09/03/2019 Active Aspirin EC 81 MG Oral Tablet Delayed ReleaseIndications:Ty pe 2 diabetes mellitus with hemoglobin A1c goal of less than 8.0% (HCC) Take 1 Tab by mouth daily. 100 Tab 3 11/08/2020 Active OneTouch Delica Plus [id number]: Type 2 diabetes mellitus with hyperglycemia, with long-term current use of insulin ([facility]) Use to test blood sugar TWICE a [...] hemoglobin A1c goal of less than 7.0% ([facility]),Type 2 diabetes mellitus with hyperglycemia, with long-term current use of insulin ([facility]) Inject 3 mg under the skin once a week. 2 mL 5 12/18/2023 Active metFORMIN HCl 1000 MG Oral Tablet (Glucophage)Indicatio ns:Type 2 diabetes mellitus with hyperglycemia, with long-term current use of insulin ([facility]) TAKE 1 TABLET BY MOUTH TWICE A DAY WITH BREAKFAST AND DINNER 180 Tablet 01/13/2024 Active OneTouch Verio In Vitro Strip (Glucose Blood)Indications:Typ e 2 diabetes mellitus with hyperglycemia, with long-term current use of insulin ([facility]) USE TO TEST BLOOD SUGAR TWICE A [...] PPD 04/15/2017,09/21/2011,12/02/2006 Pneumococcal Conjugate Vacci ne, 20-valent ([id number]) 01/14/2023 Pneumococcal Polysaccharide PPV23 (Pneumovax) 09/23/2006 Season [...] 4:20 PM EDT Office Visit Family Medicine [address] [place] [phone] Sarbjit Carballo MD [address] [place] [address] [place] [phone] Health Maintenance Due Date Last Done Comments HIV Screening 1979 Colonoscopy 2009 Sigmoidoscopy 2009 Zoster Vaccines (1 of 2) 2014 CKD PHOS USE SMARTSET 32052 01/22/201701/2016, 07/26/2015, 02/25/2015, Additional history exists Fecal Occult Blood Test 04/18/2018 04/18/2017, 11/27 Depression Screening 02/06/2023 02/06/2022 Albumin/Creatinine Ratio 01/12/2024 023, 12/08/2021, 11/23/2020, Additional history exists CKD HGB USE SMARTSET 04366 01/12/202401/11, 01/11/2023, 12/08/2021, Additional history exists Diabetic [...] filedocumented as of this encounter Care Teams Roll Handler Relationship Specialty Start Date End Date Sarbjit Carballo MD [address] [place] [address] [place] [address] PCP - General Family Medicine 07/12/22 documented as of this encounter
--- OUTSIDE RECORDS SUMMARY | 2024-06-08 23:19 | External Medical Summary | Summary of Care ---
Author Name Unknown Organization [facility] Address [address] [place] [address] Phone [phone] Care Team Providers Care Air Box Tester Name Role Phone Christian Carballo MD Primary Care Provide r Reason for Visit * Reason Comments eRx-Medication Refill Encounter Details Date Type Department Care Team (Late st Contact Info) Description 05/07/2024 Refill Family Medicine [address] [phone] Christian Carballo MD [address] [place] [address] Allergies Active Allergy Reactions Criticality Noted Date Comments Bee Venom High 07/01/2017 Demerol Rash 03/01/2014 Lisinopril 03/07/2018 hyperkalemia Meperidine 01/26/2021 Other reaction(s): rash Meperidine Hcl High 03/29/2021 Penicillin G High 09/16/2001 Penicillins 01/03/2004 Other reaction(s): Other (See Comments) "Extremity stiffness" documented as of this encounter (statuses as of 05/07/2024) Medications Medication Sig Dispensed Refills Start Date End Date Status Blood Glucose Monitoring Suppl (AT Internet VERIO) w/Device KIT Use up to 4 times a day E11.9 1 Kit 9 Active Aspirin EC 81 MG Oral Tablet Delayed ReleaseIndications:T ype 2 diabetes mellitus with hemoglobin A1c goal of less than 8.0% ([facility]) Take 1 Tab by mouth daily. 100 Tab 3 1 Active OneTouch Delica Plus [id number] :Type 2 diabetes mellitus with hyperglycemia, with long-term current use of insulin ([facility]) Use to test blood sugar TWICE a [...] THE MORNING 90 Tablet 3 3 Active Fluticasone-Salmeter ol 230-21 MCG/ACT Inhalation Aerosol (Advair HFA)Indications:Mild persistent asthma without complication Inhale 2 Puffs by mouth in the morning and 2 Puffs before bedtime. Rinse mouth after use.. 12 g 5 3 Active CPAP every night at bedtime. Active metFORMIN HCl 1000 MG Oral Tablet (Glucophage)Indicati ons:Type 2 diabetes mellitus with hyperglycemia, with long-term current use of insulin ([facility]) TAKE 1 TABLET BY MOUTH TWICE A DAY WITH BREAKFAST AND DINNER 180 Tablet 4 Active OneTouch Verio In Vitro Strip (Glucose Blood)Indications:Ty pe 2 diabetes mellitus with hyperglycemia, with long-term current use of insulin ([facility]) USE TO TEST BLOOD SUGAR TWICE A DAY. DX E11.9 200 Strip 3 4 Active Zyloprim 100 MG Oral Tablet (Allopurinol)Indicat ions:Gouty arthropathy TAKE 1 TABLET BY MOUTH ONCE DAILY 90 Tablet 1 4 Active Singulair 10 MG Oral Tablet (montelukast)Indicat ions:Mild persistent asthma without complication TAKE 1 TABLET BY MOUTH ONCE DAILY 90 Tablet 1 4 Active Levocetirizine Dihydrochloride 5 MG Oral TabletIndications:Po st-nasal drainage TAKE 1/2 TABLET BY MOUTH BEFORE BEDTIME 45 Tablet 1 4 Active Amitriptyline HCl 25 MG Oral [...] 4 Active Jardiance 25 MG Oral Tablet (Empagliflozin)Indic ations:Type 2 diabetes mellitus with hyperglycemia, with long-term current use of insulin ([facility]CC) TAKE 1 TABLET BY MOUTH ONCE DAILY 30 Tablet 4 Active Trulicity 0.75 MG/0.5ML Subcutaneous Solution Pen-injector (Dulaglutide)Indicat ions:Type 2 diabetes mellitus with hemoglobin A1c goal of less than 7.0% ([facility]) Inject 0.75 mg under the skin once a week. 2 mL 4 Active Spacer/Aero-Holding Chambers DeviceIndications:Mi ld persistent asthma without complication Use with inhaler. 1 Each 4 Active Fenofibrate Micronized 67 MG Oral Capsule TAKE 1 CAPSULE BY MOUTH DAILY. 30 Capsule 5 4 Active Fenofibrate Micronized 67 MG Oral Capsule Take 1 Capsule by mouth daily. 90 Capsule 4 05/07/20 24 Discontinued documented as of this encounter [...] ICD-10 update of inactive term Mixed dyslipidemia 09/23/200610/06/ 9 Overview: Per Lipid Taxonomy. chol 156, [...] PPD 04/15/2017,09/21/2011,12/02/2006 Pneumococcal Conjugate Vacci ne, 20-valent ([id number]) 01/14/2023 Pneumococcal Polysaccharide PPV23 (Pneumovax) 09/23/2006 Season [...] encounter Miscellaneous Notes * Telephone Encounter - Izaiah Underwood [facility] - 05/07/2024 1:30 PM EDT Signed Prescriptions: Disp Refills Fenofibrate Micronized 67 MG Oral Capsule 30 Cap*5 Sig: TAKE 1 CAPSULE BY MOUTH DAILY.Authorizing Provider: CHRISTIAN CARBALLO User: DIXIE RIVERA * Telephone Encounter - Dixie Rivera [facility] - 05/07/2024 1:19 PM EDTSigned Prescriptions: Disp Refills Fenofibrate Micronized 67 MG Oral Capsule 30 Cap*5 Sig: TAKE 1 CAPSULE BY MOUTH DAILY.Authorizing Provider: CHRISTIAN CARBALLO User: DIXIE RIVERA * Telephone Encounter - Adriana Herrera CPhT - 05/07/2024 1:13 PM EDT Pt requesting HIGH PRIORITY due to OUT OF MED Did you pend patient's preferred pharmacy and medication before forwarding?yes Pharmacy: [facility] [address] Pending Prescriptions: Disp Refills Fenofibrate Micronized 67 MG Oral Capsule*30 Cap*10 Sig: TAKE 1 CAPSULE BY MOUTH DAILY. Last Visit: 05/05/2024 (in office), 08/27/2023 (telemedicine) Next Visit: 11/05/2024 If no future appointments scheduled, and last appointment is greater than a year ago, please schedule patient for a follow-up appointment Last date the medication was ordered: 02/03/24 Is this request for a controlled substance?No [...] 05/13/2024 2:40 PM EDT Office Visit Pharmacy, [address] [place] [address] [place] [address] 05/27/2024 3:30 PM EDT Imaging Radiology [address] [place] [address] 11/05/2024 4:20 PM EST Office Visit [address] [place] [phone] Sharlene Pacheco CRNP [address] [place] [address] [place] [address] 05/07/2025 4:20 PM EDT Office Visit [address] [place] [phone] Christian Carballo MD [address] [place] [address] [place] [address] Health Maintenance Due Date Last Done Comments HIV Screening 1979 Colonoscopy 2009 Sigmoidoscopy 2009 Zoster Vaccines (1 of 2) 2014 CKD PHOS USE SMARTSET 58298 01/22/[address] 01/2016, 07/26/2015, 02/25/2015, Additional history exists Fecal Occult Blood Test 04/18/2018 04/18/2017, 11/27 Depression Screening 02/06/2023 02/06/2022 CKD HGB USE SMARTSET 73794 01/12/202401/11, 01/11/2023, 12/08/2021, Additional history exists Mammogram [...] filedocumented as of this encounter Care Teams Air Box Tester Relationship Specialty Start Date End Date Christian Carballo MD [address] [place] [address] [place] [phone] PCP - General Family Medicine 07/12/22 documented as of this encounter
--- OUTSIDE RECORDS SUMMARY | 2024-06-08 23:20 | External Medical Summary | Summary of Care ---
Author Name Unknown Organization [facility] Address [address] [facility] [place] [address] Phone [phone] Care Team Providers Care Risk Investigator Name Role Phone Sarbjit Carballo MD Primary Care Provide r Reason for Visit * Reason Comments eRx-Medication Refill Encounter Details Date Type Department Care Team (Late st Contact Info) Description 04/17/2024 Refill Neurology, [place] [address] [facility] [place] [address] She Agosto PA-C [address] [facility] [place] [address] Chronic migraine without aura without status migrainosus, not intractable Allergies Active Allergy Reactions Criticality Noted Date Comments Bee Venom High 07/01/2017 Demerol Rash 03/01/2014 Lisinopril 03/07/2018 hyperkalemia Meperidine 01/26/2021 Other reaction(s): rash Meperidine Hcl High 03/29/2021 Penicillin G High 09/16/2001 Penicillins 01/03/2004 Other reaction(s): Other (See Comments) "Extremity stiffness" documented as of this encounter (statuses as of 04/20/2024) Medications Medication Sig Dispensed Refills Start Date End Date Status Blood Glucose Monitoring Suppl (edenes VERIO) w/Device KIT Use up to 4 times a day E11.9 1 Kit 9 Active Aspirin EC 81 MG Oral Tablet Delayed ReleaseIndications:T ype 2 diabetes mellitus with hemoglobin A1c goal of less than 8.0% ([facility]) Take 1 Tab by mouth daily. 100 Tab 3 1 Active OneTouch Delica Plus [id number] :Type 2 diabetes mellitus with hyperglycemia, with long-term current use of insulin ([facility]) Use to test blood sugar TWICE a [...] Active Trulicity 3 MG/0.5ML Subcutaneous Solution Pen-injector (Dulaglutide)Indicat ions:Type 2 diabetes mellitus with hemoglobin A1c goal of less than 7.0% ([facility]),Type 2 diabetes mellitus with hyperglycemia, with long-term current use of insulin ([facility]) Inject 3 mg under the skin once a week. 2 mL 5 4 Active metFORMIN HCl 1000 MG Oral Tablet (Glucophage)Indicati ons:Type 2 diabetes mellitus with hyperglycemia, with long-term current use of insulin ([facility]) TAKE 1 TABLET BY MOUTH TWICE A [...] hyperglycemia, with long-term current use of insulin ([facility]) TAKE 1 TABLET BY MOUTH ONCE DAILY 30 Tablet 4 Active Topiramate 50 MG Oral Tablet (topAMAX)Indications :Chronic migraine without aura without status migrainosus, not intractable TAKE 1 TABLET BY MOUTH EVERY MORNING AND BEFORE BEDTIME 60 Tablet 4 04/20/20 24 Discontinued documented as of this encounter (statuses as of 04/20/2024) Active Problems Problem Noted Date Diagnosed Date [...] as of this encounter (statuses as of 04/20/2024) Resolved Problems Problem Noted Date Diagnosed Date [...] as of this encounter (statuses as of 04/20/2024) Immunizations Name Administration Dates Next Due COVID-19 mRNA, LNP-s, No Pre serve, 2-Dose Series (Moderna) 09/26/2021,03/15/2021,02/08/2021 COVID-19, MRNA-LNP, 23-24, P F, 50 MCG/0.5 mL, 12 YRS AND ABOVE, IM (MODERNA-Spikevax) 11/22/2023 Covid-19, Mrna, Lnp-s, Pf, B ivalent, 50 Mcg, IM, 12 yrs and above (Moderna) 11/02/2022 Hepatitis B, 20+ yrs 09/04/1999,04/04/1999,03/04 PPD 04/15/2017,09/21/2011,12/02/2006 Pneumococcal Conjugate Vacci ne, 20-valent ([id number]) 01/14/2023 Pneumococcal Polysaccharide PPV23 (Pneumovax) 09/23/2006 Season [...] 02/06/2022 Hunger Vital Sign Answer Date Recorded Worried About Running Out of Food in the Last Ye ar Never true 09/03/2019 Ran Out of Food in the Last Year Never true 09/03/2019 Utilities Answer Date Recorded Do you have trouble paying y our heating, water, or electric bill? (Adult - for ages 18 years and over) Not on file 04/07/2024 Is your family able to pay t he heat, water, or electric bill? (Household - for ages 0-17 years) Not on file 04/07/2024 Does your family have access to good internet? (Household - for ages 0-17 years) Not on file 04/07/2024 Social Connections Answer Date Recorded How often do you feel lonely or isolated from those around you? (Adult - for ages 18 years and over) Not on file 04/07/2024 Sex and Gender Information Value Date Recorded Sex Assigned at Female 04/24/2022 2:03 PM EDT Gender Identity Female 04/24/2022 2:03 PM EDT Sexual Orientation Straight 04/24/2022 2: 03 PM EDT Job Start Date Occupation Industry Not on file Not on file Not on file documented as of this encounter Miscellaneous Notes * Telephone Encounter - Silviano Franklin DO - 04/20/2024 10:07 AM EDT Signed Prescriptions: Disp Refills Topiramate 50 MG Oral Tablet (topAMAX) 60 Tab*0 Sig: TAKE 1 TABLET BY MOUTH EVERY MORNING AND BEFORE BEDTIME Authorizing Provider: SILVIANO FRANKLIN * Telephone Encounter - Shannon Chamberlain LPN - 04/20/2024 9:07 AM EDTPending Prescriptions: Disp Refills Topiramate 50 MG Oral Tablet [Pharmacy Med*60 Tab*0 Sig: TAKE 1 TABLET BY MOUTH EVERY MORNING AND BEFORE BEDTIME * Telephone Encounter - Monique Nash, property staff accountant - 04/20/2024 9:06 AM EDTPending Prescriptions: Disp Refills Topiramate 50 MG Oral Tablet [Pharmacy Med*60 Tab*0 Sig: TAKE 1 TABLET BY MOUTH EVERY MORNING AND BEFORE BEDTIME * Telephone Encounter - Monique Nash, property staff accountant - 04/20/2024 9:06 AM EDT Received message from [facility] regarding patient needing an appointment. Call Placed, Left message on voicemail to call back and schedule appointment. Thank you, Monique Nash Enterprise Systems Engineer [employer] [facility] 04/20/2024, 9:06 AM * Telephone Encounter - Jhon Wesley RPh - 04/19/2024 12:03 PM EDTPending Prescriptions: Disp Refills Topiramate 50 MG Oral Tablet [Pharmacy Med*60 Tab*0 Sig: TAKE 1 TABLET BY MOUTH EVERY MORNING AND BEFORE BEDTIME * Telephone Encounter - Jhon Wesley RPh - 04/19/2024 11:59 AM EDT 3rd attempt Please contact patient so that an appointment can be scheduled with her NEUROLOGY provider before this refill can be authorized. After contacting patient, please forward request to hallie [phone]. Last Visit: Visit date not found (in office), Visit date not found (telemedicine) Next Visit: Visit date not found Thanks, Abdulkadir Wesley PharmD Clinical Pharmacist [facility] [phone] 04/19/2024 12:02 PM documented in this encounter Plan of Treatment Upcoming Encounters Date Type Department Care Team (Late st Contact Info) Description 05/05/2024 4:20 PM EDT Office Visit Family Medicine [address] [place] [phone] Sarbjit Carballo MD [address] [place] [address] [place] [address] Health Maintenance Due Date Last Done Comments HIV Screening 1979 Colonoscopy 2009 Sigmoidoscopy 2009 Zoster Vaccines (1 of 2) 2014 CKD PHOS USE SMARTSET 86906 01/22/2017 04/0 01/2016, 07/26/2015, 02/25/2015, Additional history exists Fecal Occult Blood Test 04/18/2018 04/18/2017, 11/27 Depression Screening 02/06/2023 02/06/2022 Albumin/Creatinine Ratio 01/12/2024 023, 12/08/2021, 11/23/2020, Additional history exists CKD HGB USE SMARTSET 91378 01/12/202401/11, 01/11/2023, 12/08/2021, Additional history exists TSH 01/12/2024 01/11/2023, 11/21, 11/23/2020, Additional history exists Diabetic Foot Exam 01/15/2024 01/14/2023, 0 12/12/2021, 11/23/2020, Additional history exists Mammogram 04/09/2024 04/09/2023, 02/0 04/2022, 11/25/2020, Additional history exists GFR 05/04/2024 11/04/2023, 03/2 01/2023, 12/08/2021, Additional history exists HbA1c 05/04/2024 11/04/2023, 03/2 01/2023, 05/04/2022, Additional history exists Influenza Vaccine (FLU shot) (#1) 2024 10/28/2023, 07/16/2022, 08/09/2021, Additional history exists Cologuard 10/30/2024 10/30/2021, /, 10/19/2021, Additional history exists Colorectal Cancer Screening 10/30/2024 Diabetic Eye Exam 11/04/2024 11/04/2023, , 05/08/2021, Additional history exists Lipid Panel 01/12/2028 01/11/2023, 11/21, 06/09/2021, Additional history exists DTaP,Tdap,and Td Vaccines (4 - Td or Tdap) 09/25/2028 09/25/2018, 05/26/2008, 04/13/2003 Hepatitis B Completed 09/04/1999, 03/21, 03/04/1999 Pneumococcal Vaccine: Pediatrics (0 to 5 Years) and At-Risk Patients (6 to 64 Years) Completed 01/14/2023, 09/23/2006 COVID-19 Vaccine Completed 11/22/2023, , 09/26/2021, Additional history exists GARDASIL-HPV IMMUNIZATION SERIES Aged Out No longer eligible based on [...] migrainosus documented in this encounter Care Teams Risk Investigator Relationship Specialty Start Date End Date Sarbjit Carballo MD [address] [place] [address] [place] [address] PCP - General Family Medicine 07/12/22 documented as of this encounter
--- OUTSIDE RECORDS SUMMARY | 2024-06-08 23:20 | External Medical Summary ---
Author Name Unknown Address Unknown Organization [id number]:[place] [place] [address] [place] [address] Laboratory Report Ordering Provider Test Date Status ELMER CRUZ 04/28/2024 12:35:38 Final Normal: <30 mg/g creatinine< br/>High: 30-300 mg/g creatinine
Very High: >300 mg/g creatinine
Nephrotic: >2200 mg/g creatinine Observation Date Value Abnormality Reference (Units ) Status Albumin, Urine 04/28/2024 12:35:38 <1.20 (mg/dL) Final Creatinine, Urine 04/28/2024 12:35:38 47 (mg/dL) Final Albumin/Creatinine [Mass Ratio] in Urine 04/28/2024 12:35:38 <26 <30 (mg/g Creat) Final Performing Location [facility] [place] [address] [place] [address]
--- OUTSIDE RECORDS SUMMARY | 2024-06-08 23:20 | External Medical Summary | Summary of Care ---
Author Name Unknown Organization [facility] Address [address] [place] [address] Phone [phone] Care Team Providers Care Manager Professional Development Name Role Phone Sarbjit Carballo MD Primary Care Provide r Reason for Visit * Reason Onset Date Comments Test Results 04/27/2024 Encounter Details Date Type Department Care Team (Late st Contact Info) Description 04/27/2024 Telephone Family Medicine [address] [phone] Sarbjit Carballo MD [address] [place] [address] [place] [address] Test Results Allergies Active Allergy Reactions [...] End Date Status Blood Glucose Monitoring Suppl (P2P-Next VERIO) w/Device KIT Use up to 4 times a day E11.9 1 Kit 09/03/2019 Active Aspirin EC 81 MG Oral Tablet Delayed ReleaseIndications:Ty pe 2 diabetes mellitus with hemoglobin A1c goal of less than 8.0% ([facility]) Take 1 Tab by mouth daily. 100 Tab 3 11/08/2020 Active OneTouch Delica Plus [id number]: Type 2 diabetes mellitus with hyperglycemia, with long-term current use of insulin ([facility]) Use to test blood sugar TWICE a [...] less than 7.0% ([facility]),Type 2 diabetes mellitus with hyperglycemia, with long-term current use of insulin ([facility]) Inject 3 mg under the skin once a week. 2 mL 5 12/18/2023 Active metFORMIN HCl 1000 MG Oral Tablet (Glucophage)Indicatio ns:Type 2 diabetes mellitus with hyperglycemia, with long-term current use of insulin ([facility]) TAKE 1 TABLET BY MOUTH TWICE A DAY WITH BREAKFAST AND DINNER 180 Tablet 01/13/2024 Active OneTouch Verio In Vitro Strip (Glucose Blood)Indications:Typ e 2 diabetes mellitus with hyperglycemia, with long-term current use of insulin ([facility]) USE TO TEST BLOOD SUGAR TWICE A [...] 04/15/2017, 1,12/02/2006,04/13,04/09/2002,03/26/2002 Pneumococcal Conjugate Vacci ne, 20-valent ([id number]) 01/14/2023 Pneumococcal Polysaccharide PPV23 (Pneumovax) 09/23/2006 Season [...] Notes * Telephone Encounter - Deborah Brian [facility] - 04/27/2024 9:26 AM EDT Unable to reach patient at this time. Left message on the answering machine requesting callback regarding high A1C. Pt on jaridance, metformin, trulicity - has there been any compliance issues? Did not establish with mtdm last year; is she willing to re-try? Advised patient to please call [phone]. Please transfer her back to myself. If I'm not available, transfer to next available [facility]. Thank you, Deborah Brian, PharmD Clinical Pharmacist [facility] Services ([facility]PS) 04/27/24 9:27 AM [phone] documented in this encounter Plan of Treatment Upcoming Encounters Date Type Department Care Team (Late st Contact Info) Description 05/05/2024 4:20 PM EDT Office Visit Family Medicine [address] [place] [phone] Sarbjit Carballo MD [address] [place] [address] [place] [address] Health Maintenance Due Date Last Done Comments HIV Screening 1979 Colonoscopy 2009 Sigmoidoscopy 2009 Zoster Vaccines (1 of 2) 2014 CKD PHOS USE SMARTSET 09850 01/22/2017 04/0 01/2016, 07/26/2015, 02/25/2015, Additional history exists Fecal Occult Blood Test 04/18/2018 04/18/2017, 11/27 Depression Screening 02/06/2023 02/06/2022 Albumin/Creatinine Ratio 01/12/2024 023, 12/08/2021, 11/23/2020, Additional history exists CKD HGB USE SMARTSET 52986 01/12/202401/11, 01/11/2023, 12/08/2021, Additional history exists Diabetic [...] filedocumented as of this encounter Care Teams Manager Professional Development Relationship Specialty Start Date End Date Sarbjit Carballo MD [address] [place] [address] [place] [address] PCP - General Family Medicine 07/12/22 documented as of this encounter
--- OUTSIDE RECORDS SUMMARY | 2024-06-08 23:20 | External Medical Summary ---
Author Name Unknown Address Unknown Organization [id number]:[facility] [place] [address] [address] Laboratory Report Ordering Provider Test Date Status IRMA ANGLIN 04/24/2024 07:35:58 Final Observation Date Value Abnormality Reference (Units ) Status Triglyceride 04/24/2024 07:35:58 262 Above high normal <=174 (mg/dL) Final Triglyceride Reference Range s (mg/dL):
<150 Acceptable
150-174 Borderline high
175-499 High
>=500 Very high Cholesterol 04/24/2024 07:35:58 113 <200 (mg /dL) Final Total Cholesterol Reference Ranges (mg/dL):
<200 Desirable
200-239 Borderline high
>=240 High HDL 04/24/2024 07:35:58 23 Below low normal >49 (mg/dL) Final HDL Cholesterol Reference Ra nges (mg/dL):
>=60 High (Desirable)
<50 Low (Undesirable) For Females
<40 Low (Undesirable) For Males NON-HDL CHOLESTEROL 04/24/2024 07:35:58 90 <=159 (mg/dL) Final Non-HDL Cholesterol Referenc e Range (mg/dL):
<100 Target level for high risk ASCVD patient
<130 Optimal for general population
130-159 Near optimal for general population
160-189 Borderline High
190-219 High
>=220 Very High Performing Location LABORATORY [facility] - [address] [place] [address]
--- OUTSIDE RECORDS SUMMARY | 2024-06-08 23:20 | External Medical Summary | Summary of Care ---
Author Name Unknown Organization [facility] Address [address] [place] [address] Phone [phone] Care Team Providers Care Site Manager Name Role Phone Sarbjit Carballo MD Primary Care Provide r Reason for Visit * Reason Comments Outpatient Testing Encounter Details Date Type Department Care Team (Late st Contact Info) Description 04/24/2024 7:40 AM EDT Laboratory Laboratory [address] [place] [phone] [place] [address] Encounter for long-term (current) use of medications; Acquired hypothyroidism; Type 2 diabetes mellitus with hyperglycemia, with long-term current use of insulin (HCC); Encounter for long-term (current) use of other medications Allergies Active Allergy Reactions Criticality Noted Date Comments Bee Venom High 07/01/2017 Demerol Rash 03/01/2014 Lisinopril 03/07/2018 hyperkalemia Meperidine 01/26/2021 Other reaction(s): rash Meperidine Hcl High 03/29/2021 Penicillin G High 09/16/2001 Penicillins 01/03/2004 Other reaction(s): Other (See Comments) "Extremity stiffness" documented as of this encounter (statuses as of 04/24/2024) Medications Medication Sig Dispensed Refills Start Date End Date Status Blood Glucose Monitoring Suppl (Bountysource VERIO) w/Device KIT Use up to 4 times a day E11.9 1 Kit 09/03/2019 Active Aspirin EC 81 MG Oral Tablet Delayed ReleaseIndications:Ty pe 2 diabetes mellitus with hemoglobin A1c goal of less than 8.0% ([facility]) Take 1 Tab by mouth daily. 100 Tab 3 11/08/2020 Active OneTouch Delica Plus [id number]: Type 2 diabetes mellitus with hyperglycemia, with long-term current use of insulin ([facility]) Use to test blood sugar TWICE a [...] hyperglycemia, with long-term current use of insulin ([facility]) Inject 3 mg under the skin once a week. 2 mL 5 12/18/2023 Active metFORMIN HCl 1000 MG Oral Tablet (Glucophage)Indicatio ns:Type 2 diabetes mellitus with hyperglycemia, with long-term current use of insulin ([facility]) TAKE 1 TABLET BY MOUTH TWICE A [...] as of this encounter (statuses as of 04/24/2024) Active Problems Problem Noted Date Diagnosed Date [...] as of this encounter (statuses as of 04/24/2024) Resolved Problems Problem Noted Date Diagnosed Date [...] as of this encounter (statuses as of 04/24/2024) Immunizations Name Administration Dates Next Due COVID-19 mRNA, LNP-s, No Pre serve, 2-Dose Series (Moderna) 09/26/2021,03/15/2021,02/08/2021 COVID-19, MRNA-LNP, 23-24, P F, 50 MCG/0.5 mL, 12 YRS AND ABOVE, IM (MODERNA-Spikevax) 11/22/2023 Covid-19, Mrna, Lnp-s, Pf, B ivalent, 50 Mcg, IM, 12 yrs and above (Moderna) 11/02/2022 Hepatitis B, 20+ yrs 09/04/1999,04/04/1999,03/04 PPD 04/15/2017,09/21/2011,12/02/2006 Pneumococcal Conjugate Vacci ne, 20-valent ([id number]) 01/14/2023 Pneumococcal Polysaccharide PPV23 (Pneumovax) 09/23/2006 Season [...] 4:20 PM EDT Office Visit Family Medicine [address] [place] [phone] Sarbjit Carballo MD [address] [place] [address] [place] [address] Pending Results Name Type Priority Associated Diagnoses Date /Time LIPID PANEL WITH DIRECT LDL IF TG IS HIGH Lab Routine Encounter for long-term (current) use of medications 04/24/2024 7:35 AM EDT TSH WITH FREE T4 IF INDICATED Lab Routine Acquired hypothyroidism 04/24/2024 7:35 AM EDT HEMOGLOBIN A1C Lab Routine Type 2 diabetes mellitus with hyperglycemia, with long-term current use of insulin (HCC) 04/24/2024 7:35 AM EDT MAGNESIUM Lab Routine Encounter for long-term (current) use of other medications 04/24/2024 7:35 AM EDT Health Maintenance Due Date Last Done Comments HIV Screening 1979 Colonoscopy 2009 Sigmoidoscopy 2009 Zoster Vaccines (1 of 2) 2014 CKD PHOS USE SMARTSET 31943 01/22/2017 04/0 01/2016, 07/26/2015, 02/25/2015, Additional history exists Fecal Occult Blood Test 04/18/2018 04/18/2017, 11/27 Depression Screening 02/06/2023 02/06/2022 Albumin/Creatinine Ratio 01/12/2024 023, 12/08/2021, 11/23/2020, Additional history exists CKD HGB USE SMARTSET 93983 01/12/202401/11, 01/11/2023, 12/08/2021, Additional history exists TSH 01/12/2024 01/11/2023, 11/21, 11/23/2020, Additional history exists Diabetic Foot Exam 01/15/2024 01/14/2023, 0 12/12/2021, 11/23/2020, Additional history exists Mammogram 04/09/2024 04/09/2023, 02/0 04/2022, 11/25/2020, Additional history exists GFR 05/04/2024 11/04/2023, 032 01/2023, 12/08/2021, Additional history exists HbA1c 05/04/2024 11/04/2023, 2 01/2023, 05/04/2022, Additional history exists Influenza Vaccine (FLU shot) (#1) 2024 10/28/2023, 07/16/2022, 08/09/2021, Additional history exists Cologuard 10/30/2024 10/30/2021, 09/22, 10/19/2021, Additional history exists Colorectal Cancer Screening 10/30/2024 Diabetic Eye Exam 11/04/2024 11/04/2023, , 05/08/2021, Additional history exists Lipid Panel 01/12/2028 01/11/2023, 11/21, 06/09/2021, Additional history exists DTaP,Tdap,and Td Vaccines (4 - Td or Tdap) 09/25/2028 09/25/2018, 05/26/2008, 04/13/2003 Hepatitis B Vaccine Completed 09/04/1999, 04/04/1999, 03/04/1999 [...] as of this encounter Visit Diagnoses Diagnosis Encounter for long-term (current) use of medications Encounter for long-term (current) use of other medications Acquired hypothyroidism Unspecified hypothyroidism Type 2 diabetes mellitus with hyperglycemia, with long-term current use of insulin (HCC) Encounter for long-term (current) use of other medications documented in this encounter Care Teams Site Manager Relationship Specialty Start Date End Date Sarbjit Carballo MD [address] [place] [address] [place] [address] PCP - General Family Medicine 07/12/22 documented as of this encounter
--- OUTSIDE RECORDS SUMMARY | 2024-06-08 23:20 | External Medical Summary ---
Author Name Unknown Address Unknown Organization K01:[place] [facility] [place] [address] [address] Laboratory Report Ordering Provider Test Date Status IRMA ANGLIN 04/24/2024 07:35:58 Final Observation Date Value Abnormality Reference (Units ) Status LDL, (direct) 04/24/2024 07:35:58 56 <=129 (mg/dL) Final LDL Cholesterol Reference Ra nges (mg/dL):
<70 Target level for high risk ASCVD patient
<100 Optimal for general population
100-129 Near optimal for general population
130-159 Borderline high
160-189 High
>=190 Very high Performing Location LABORATORY [facility] - [address] [address]
--- OUTSIDE RECORDS SUMMARY | 2024-06-08 23:20 | External Medical Summary | Summary of Care ---
Author Name Unknown Organization [facility] Address [address] [place] [address] Phone [phone] Care Team Providers Care Film Library Clerk Name Role Phone Sarbjit Carballo MD Primary Care Provide r Reason for Visit * Reason Onset Date Comments Test Results 04/27/2024 Encounter Details Date Type Department Care Team (Late st Contact Info) Description 04/27/2024 Telephone Family Medicine [address] [phone] Sarbjit Carballo MD [address] [place] [address] [place] [address] Test Results Allergies Active Allergy Reactions Criticality Noted Date Comments Bee Venom High 07/01/2017 Demerol Rash 03/01/2014 Lisinopril 03/07/2018 hyperkalemia Meperidine 01/26/2021 Other reaction(s): rash Meperidine Hcl High 03/29/2021 Penicillin G High 09/16/2001 Penicillins 01/03/2004 Other reaction(s): Other (See Comments) "Extremity stiffness" documented as of this encounter (statuses as of 04/27/2024) Medications Medication Sig Dispensed Refills Start Date End Date Status Blood Glucose Monitoring Suppl (Resoomay VERIO) w/Device KIT Use up to 4 times a day E11.9 1 Kit 09/03/2019 Active Aspirin EC 81 MG Oral Tablet Delayed ReleaseIndications:Ty pe 2 diabetes mellitus with hemoglobin A1c goal of less than 8.0% ([facility]) Take 1 Tab by mouth daily. 100 Tab 3 11/08/2020 Active OneTouch Delica Plus [id number]: Type 2 diabetes mellitus with hyperglycemia, with long-term current use of insulin ([facility]) Use to test blood sugar TWICE a [...] hemoglobin A1c goal of less than 7.0% ([facility]),Type 2 diabetes mellitus with hyperglycemia, with long-term current use of insulin ([facility]) Inject 3 mg under the skin once a week. 2 mL 5 12/18/2023 Active metFORMIN HCl 1000 MG Oral Tablet (Glucophage)Indicatio ns:Type 2 diabetes mellitus with hyperglycemia, with long-term current use of insulin ([facility]) TAKE 1 TABLET BY MOUTH TWICE A DAY WITH BREAKFAST AND DINNER 180 Tablet 01/13/2024 Active OneTouch Verio In Vitro Strip (Glucose Blood)Indications:Typ e 2 diabetes mellitus with hyperglycemia, with long-term current use of insulin ([facility]) USE TO TEST BLOOD SUGAR TWICE A [...] as of this encounter (statuses as of 04/27/2024) Active Problems Problem Noted Date Diagnosed Date [...] as of this encounter (statuses as of 04/27/2024) Resolved Problems Problem Noted Date Diagnosed Date [...] as of this encounter (statuses as of 04/27/2024) Immunizations Name Administration Dates Next Due COVID-19 mRNA, LNP-s, No Pre serve, 2-Dose Series (Moderna) 09/26/2021,03/15/2021,02/08/2021 COVID-19, MRNA-LNP, 23-24, P F, 50 MCG/0.5 mL, 12 YRS AND ABOVE, IM (MODERNA-Spikevax) 11/22/2023 Covid-19, Mrna, Lnp-s, Pf, B ivalent, 50 Mcg, IM, 12 yrs and above (Moderna) 11/02/2022 Hepatitis B, 20+ yrs 09/04/1999,04/04/1999,03/04 PPD 04/15/2017,09/21/2011,12/02/2006 Pneumococcal Conjugate Vacci ne, 20-valent ([id number]) 01/14/2023 Pneumococcal Polysaccharide PPV23 (Pneumovax) 09/23/2006 Season [...] Notes * Telephone Encounter - Deborah Brian [facility] - 04/27/2024 9:26 AM EDT Unable to reach patient at this time. Left message on the answering machine requesting callback regarding high A1C. Pt on jaridance, metformin, trulicity - has there been any compliance issues? Did not establish with mtdm last year; is she willing to re-try? Advised patient to please call [phone]. Please transfer her back to myself. If I'm not available, transfer to next available [facility]. Thank you, Deborah Brian, PharmD Clinical Pharmacist Centralized Clinical Pharmacy Services ([facility]PS) 04/27/24 9:27 AM [phone] documented in this encounter Plan of Treatment Upcoming Encounters Date Type Department Care Team (Late st Contact Info) Description 05/05/2024 4:20 PM EDT Office Visit Family Medicine [address] [place] [phone] Sarbjit Carballo MD [address] [place] [address] [place] [address] Health Maintenance Due Date Last Done Comments HIV Screening 1979 Colonoscopy 2009 Sigmoidoscopy 2009 Zoster Vaccines (1 of 2) 2014 CKD PHOS USE SMARTSET 95880 01/22/2017 04/0 01/2016, 07/26/2015, 02/25/2015, Additional history exists Fecal Occult Blood Test 04/18/2018 04/18/2017, 11/27 Depression Screening 02/06/2023 02/06/2022 Albumin/Creatinine Ratio 01/12/2024 023, 12/08/2021, 11/23/2020, Additional history exists CKD HGB USE SMARTSET 39881 01/12/202401/11, 01/11/2023, 12/08/2021, Additional history exists Diabetic Foot Exam 01/15/2024 01/14/2023, 0 12/12/2021, 11/23/2020, Additional history exists Mammogram 04/09/2024 04/09/2023, 0204/2022, 11/25/2020, Additional history exists GFR 05/04/2024 11/04/2023, [...] filedocumented as of this encounter Care Teams Film Library Clerk Relationship Specialty Start Date End Date Sarbjit Carballo MD [address] [place] [address] [place] [id number] PCP - General Family Medicine 07/12/22 documented as of this encounter
--- OUTSIDE RECORDS SUMMARY | 2024-06-08 23:20 | External Medical Summary ---
Author Name Unknown Address Unknown Organization K01:[facility] [facility] [place] [address] [facility] [address] Laboratory Report Ordering Provider Test Date Status ELMER CRUZ 04/24/2024 07:35:58 Final Observation Date Value Abnormality Reference (Units ) Status HbA1C 04/24/2024 07:35:58 9.0 Above high normal 4. 0-5.6 (%) Final The use of HbA1c to monitor glycemic status is based on normal hemoglobin and HbA composition. This test should not be used in patients with abnormal hemoglobin that affects the half life of the red blood cell or the in vivo glycation rates. Glucose, estimated average 04/24/2024 07:35:58 212 Above high normal <126 (mg/dL) Jovani latif Performing Location [facility]ORY [facility] [place] [address] [place] [address]
--- OUTSIDE RECORDS SUMMARY | 2024-06-08 23:20 | External Medical Summary | Summary of Care ---
Author Name Unknown Organization [facility] Address [address] [place] [address] Phone [phone] Care Team Providers Care Special Duty Nurse Name Role Phone Sarbjit Carballo MD Primary Care Provide r Reason for Visit * Reason Comments Outpatient Testing Encounter Details Date Type Department Care Team (Late st Contact Info) Description 04/24/2024 7:40 AM EDT Laboratory Laboratory [address] [place] [phone] [place] [address] Encounter for long-term (current) use of medications; [...] End Date Status Blood Glucose Monitoring Suppl (Goowy VERIO) w/Device KIT Use up to 4 times a day E11.9 1 Kit 09/03/2019 Active Aspirin EC 81 MG Oral Tablet Delayed ReleaseIndications:Ty pe 2 diabetes mellitus with hemoglobin A1c goal of less than 8.0% ([facility]) Take 1 Tab by mouth daily. 100 Tab 3 11/08/2020 Active OneTouch Delica Plus [id number]: Type 2 diabetes mellitus with hyperglycemia, with long-term current use of insulin ([facility]) Use to test blood sugar [...] use of insulin ([facility]) Inject 3 mg under the [...] PPD 04/15/2017,09/21/2011,12/02/2006 Pneumococcal Conjugate Vacci ne, 20-valent ([id number]) 01/14/2023 Pneumococcal Polysaccharide PPV23 (Pneumovax) 09/23/2006 Season [...] 4:20 PM EDT Office Visit Family Medicine [address] [place] [phone] Sarbjit Carballo MD [address] [place] [address] [place] [address] Pending Results Name Type Priority Associated Diagnoses [...] of insulin (HCC) 04/24/2024 7:35 AM EDT ALBUMIN / CREATININE RATIO, URINE Lab Routine Type 2 diabetes mellitus with hyperglycemia, with long-term current use of insulin (HCC) 04/24/2024 7:35 AM EDT MAGNESIUM Lab Routine Encounter for long-term (current) use of other medications 04/24/2024 7:35 AM EDT Health Maintenance Due Date Last Done Comments HIV Screening 1979 Colonoscopy 2009 Sigmoidoscopy 2009 Zoster Vaccines (1 of 2) 2014 CKD PHOS USE SMARTSET 91088 01/22/2017 04/0 01/2016, 07/26/2015, 02/25/2015, Additional history exists Fecal Occult Blood Test 04/18/2018 04/18/2017, 11/27 Depression Screening 02/06/2023 02/06/2022 Albumin/Creatinine Ratio 01/12/2024 023, 12/08/2021, 11/23/2020, Additional history exists CKD HGB USE SMARTSET 16130 01/12/202401/11, 01/11/2023, 12/08/2021, Additional history exists TSH [...] medications documented in this encounter Care Teams Special Duty Nurse Relationship Specialty Start Date End Date Sarbjit Carballo MD [address] [place] [address] [place] [address] PCP - General Family Medicine 07/12/22 documented as of this encounter
--- OUTSIDE RECORDS SUMMARY | 2024-06-08 23:20 | External Medical Summary ---
Author Name Unknown Address Unknown Organization K01:LABORATORY [facility] - [address] [address] Laboratory Report Ordering Provider Test Date Status ELMER CRUZ 04/24/2024 07:35:58 Final Observation Date Value Abnormality Reference (Units ) Status Magnesium 04/24/2024 07:35:58 2.0 1.5-2.6 (m g/dL) Final Performing Location [facility] - [address] [place] [address]
--- OUTSIDE RECORDS SUMMARY | 2024-06-08 23:20 | External Medical Summary ---
Author Name Unknown Address Unknown Organization K01:LABORATORY [facility] [place] - [address] [facility] [place] [address] Laboratory Report Ordering Provider Test Date Status BOBBI MORLEY 04/24/2024 07:35:58 Final Observation Date Value Abnormality Reference (Units ) Status TSH 04/24/2024 07:35:58 4.58 Above high normal 0. 27-4.20 (uIU/mL) Final Performing Location LABORATORY [facility] [place] - [address] [place] [address]
--- OUTSIDE RECORDS SUMMARY | 2024-06-08 23:20 | External Medical Summary ---
Author Name Unknown Address Unknown Organization K01:LABORATORY [facility] - [address] [place] [address] Laboratory Report Ordering Provider Test Date Status PEYMANMARTINES 04/24/2024 07:35:58 Final Observation Date Value Abnormality Reference (Units ) Status T4, Free 04/24/2024 07:35:58 1.1 0.9-1.7 (n g/dL) Final Performing Location LABORATORY [facility] - [address] [place] [address]
--- OUTSIDE RECORDS SUMMARY | 2024-06-08 23:21 | External Medical Summary | Summary of Care ---
Author Name Unknown Organization [facility] Address [address] [facility] [place] [address] Phone [phone] Care Team Providers Care Senior Net Web Developer Name Role Phone Sarbjit Carballo MD Primary Care Provide r Reason for Visit * Reason Comments eRx-Medication Refill Encounter Details Date Type Department Care Team (Late st Contact Info) Description 03/29/2024 Refill Neurology, [place] [facility] [place] [address] She Agosto PA-C [facility] [place] [address] Chronic migraine without aura without status migrainosus, not intractable Allergies Active Allergy Reactions Criticality Noted Date Comments Bee Venom High 07/01/2017 Demerol Rash 03/01/2014 Lisinopril 03/07/2018 hyperkalemia Meperidine 01/26/2021 Other reaction(s): rash Meperidine Hcl High 03/29/2021 Penicillin G High 09/16/2001 Penicillins 01/03/2004 Other reaction(s): Other (See Comments) "Extremity stiffness" documented as of this encounter (statuses as of 03/31/2024) Medications Medication Sig Dispensed Refills Start Date End Date Status Blood Glucose Monitoring Suppl ([employer] VERIO) w/Device KIT Use up to 4 times a day E11.9 1 Kit 9 Active Aspirin EC 81 MG Oral Tablet Delayed ReleaseIndications:T ype 2 diabetes mellitus with hemoglobin A1c goal of less than 8.0% ([facility]) Take 1 Tab by mouth daily. 100 Tab 3 1 Active OneTouch Delica Plus [id number] :Type 2 diabetes mellitus with hyperglycemia, with long-term current use of insulin ([facility]) Use to test blood sugar [...] hemoglobin A1c goal of less than 7.0% ([facility]),Type 2 diabetes mellitus with hyperglycemia, with long-term current use of insulin ([facility]) Inject 3 mg under the skin once a week. 2 mL 5 4 Active metFORMIN HCl 1000 MG Oral Tablet (Glucophage)Indicati ons:Type 2 diabetes mellitus with hyperglycemia, with long-term current use of insulin ([facility]) TAKE 1 TABLET BY MOUTH [...] ONCE DAILY 90 Tablet 1 4 Active Jardiance 25 MG Oral Tablet (Empagliflozin)Indic ations:Type 2 diabetes mellitus with hyperglycemia, with long-term current use of insulin ([facility]CC) TAKE 1 TABLET BY MOUTH ONCE DAILY 90 Tablet 4 Active Singulair 10 MG Oral Tablet (montelukast)Indicat ions:Mild persistent asthma without complication TAKE 1 TABLET BY MOUTH ONCE DAILY 90 Tablet 1 4 Active Lipitor 20 MG Oral Tablet (atorvaSTATin)Indica tions:Dyslipidemia, goal LDL below 100 TAKE 1 TABLET BY MOUTH AT BEDTIME 90 Tablet 4 Active Levocetirizine Dihydrochloride 5 MG Oral TabletIndications:Po st-nasal drainage TAKE 1/2 TABLET BY MOUTH BEFORE BEDTIME 45 Tablet 1 4 Active Euthyrox 25 MCG Oral Tablet (levothyroxine)Indic ations:Acquired hypothyroidism TAKE 1 TABLET BY MOUTH AT LEAST 30 MINUTES PRIOR TO BREAKFAST OR OTHER MEDS 90 Tablet 4 Active Fenofibrate Micronized 67 MG Oral [...] before bedtime. 180 Capsule 1 4 Active Topiramate 50 MG Oral Tablet (topAMAX)Indications :Chronic migraine without aura without status migrainosus, not intractable TAKE 1 TABLET BY MOUTH EVERY MORNING AND BEFORE BEDTIME 60 Tablet 4 Active Topamax 50 MG Oral Tablet (Topiramate)Indicati ons:Chronic migraine without aura without status migrainosus, not intractable TAKE 1 TABLET BY MOUTH EVERY MORNING AND BEFORE BEDTIME 60 Tablet 1 4 03/31/20 24 Discontinued documented as of this encounter (statuses as of 03/31/2024) Active Problems Problem Noted Date Diagnosed Date [...] as of this encounter (statuses as of 03/31/2024) Resolved Problems Problem Noted Date Diagnosed Date [...] as of this encounter (statuses as of 03/31/2024) Immunizations Name Administration Dates Next Due COVID-19 mRNA, LNP-s, No Pre serve, 2-Dose Series (Moderna) 09/26/2021,03/15/2021,02/08/2021 COVID-19, MRNA-LNP, 23-24, P F, 50 MCG/0.5 mL, 12 YRS AND ABOVE, IM (MODERNA-Spikevax) 11/22/2023 Covid-19, Mrna, Lnp-s, Pf, B ivalent, 50 Mcg, IM, 12 yrs and above (Moderna) 11/02/2022 Hepatitis B, 20+ yrs 09/04/1999,04/04/1999,03/04 PPD 04/15/2017,09/21/2011,12/02/2006 Pneumococcal Conjugate Vacci ne, 20-valent ([id number]) 01/14/2023 Pneumococcal Polysaccharide PPV23 (Pneumovax) 09/23/2006 Season [...] in the Last Year Never true 09/03/2019 Sex and Gender Information Value Date Recorded Sex Assigned at Female 04/24/2022 2:03 PM EDT Gender Identity Female 04/24/2022 2:03 PM EDT Sexual Orientation Straight 04/24/2022 2: 03 PM EDT Job Start Date Occupation Industry Not on file Not on file Not on file documented as of this encounter Miscellaneous Notes * Telephone Encounter - Silviano Franklin DO - 03/31/2024 3:46 PM EDT Signed Prescriptions: Disp Refills Topiramate 50 MG Oral Tablet (topAMAX) 60 Tab*0 Sig: TAKE 1 TABLET BY MOUTH EVERY MORNING AND BEFORE BEDTIME Authorizing Provider: SILVIANO FRANKLIN * Telephone Encounter - Shannon Chamberlain LPN - 03/31/2024 3:37 PM EDTPending Prescriptions: Disp Refills Topiramate 50 MG Oral Tablet [Pharmacy Med*60 Tab*0 Sig: TAKE 1 TABLET BY MOUTH EVERY MORNING AND BEFORE BEDTIME * Telephone Encounter - Deborah Pérez induction heat treater - 03/31/2024 3:15 PM EDTPending Prescriptions: Disp Refills Topiramate 50 MG Oral Tablet [Pharmacy Med*60 Tab*0 Sig: TAKE 1 TABLET BY MOUTH EVERY MORNING AND BEFORE BEDTIME * Telephone Encounter - Deborah Pérez induction heat treater - 03/31/2024 3:15 PM EDT Received message from [facility] regarding patient needing appointment. Call Placed, Left message on voicemail to call back and schedule appointment. Thank you, Deborah Pérez [facility] Residential Subcontractor II [facility] 03/31/2024,3:15 PM * Telephone Encounter - Jhon Wesley [facility] - 03/30/2024 11:41 AM EDTPending Prescriptions: Disp Refills Topiramate 50 MG Oral Tablet [Pharmacy Med*60 Tab*0 Sig: TAKE 1 TABLET BY MOUTH EVERY MORNING AND BEFORE BEDTIME * Telephone Encounter - Jhon Wesley RPh - 03/30/2024 11:39 AM EDT 2nd attempt Please contact patient so that an appointment can be scheduled with her NEUROLOGY provider before this refill can be authorized. After contacting patient, please forward request to [email or web address] [phone]. Last Visit: Visit date not found (in office), Visit date not found (telemedicine) Next Visit: Visit date not found Abdulkadir Pitt, PharmD Clinical Pharmacist [facility] [phone] 03/30/2024 11:41 AM documented in this encounter Plan of Treatment Upcoming Encounters Date Type Department Care Team (Late st Contact Info) Description 05/05/2024 4:20 PM EDT Office Visit Family Medicine [address] [place] [address] Sarbjit Carballo MD [address] [place] [address] [place] [phone] Health Maintenance Due Date Last Done Comments HIV Screening 1979 Colonoscopy 2009 Sigmoidoscopy 2009 Zoster Vaccines (1 of 2) 2014 CKD PHOS USE SMARTSET 34513 01/22/2017 04/0 01/2016, 07/26/2015, 02/25/2015, Additional history exists Fecal Occult Blood Test 04/18/2018 04/18/2017, 11/27 Depression Screening 02/06/2023 02/06/2022 Albumin/Creatinine Ratio 01/12/2024 023, 12/08/2021, 11/23/2020, Additional history exists CKD HGB USE SMARTSET 55384 01/12/202401/11, 01/11/2023, 12/08/2021, Additional history exists TSH 01/12/2024 01/11/2023, 11/21, 11/23/2020, Additional history exists Diabetic Foot Exam 01/15/2024 01/14/2023, 0 12/12/2021, 11/23/2020, Additional history exists Mammogram 04/09/2024 04/09/2023, 02/0 04/2022, 11/25/2020, Additional history exists GFR 05/04/2024 11/04/2023, 032 01/2023, 12/08/2021, Additional history exists HbA1c 05/04/2024 11/04/2023, 2 01/2023, 05/04/2022, Additional history exists Cologuard 10/30/2024 10/30/2021, 09/22, [...] (6 to 64 Years) Completed 01/14/2023, 09/23/2006 Influenza Vaccine (FLU shot) Completed 05/2024, 07/16/2022, 08/09/2021, Additional history exists COVID-19 Vaccine Completed 11/22/2023, , 09/26/2021, Additional [...] migrainosus documented in this encounter Care Teams Senior Net Web Developer Relationship Specialty Start Date End Date Sarbjit Carballo MD [address] [place] [address] [place] [phone] PCP - General Family Medicine 07/12/22 documented as of this encounter
--- OUTSIDE RECORDS SUMMARY | 2024-06-08 23:21 | External Medical Summary | Summary of Care ---
Author Name Unknown Organization [facility] Address [address] [place] [address] Phone [phone] Care Team Providers Care Financial Analysis Manager Name Role Phone Sarbjit Carballo MD Primary Care Provide r Reason for Visit * Reason Comments eRx-Medication Refill Encounter Details Date Type Department Care Team (Late st Contact Info) Description 03/30/2024 Refill Family Medicine [address] [phone] Sarbjit Carballo MD [address] [place] [id number] Allergies Active Allergy Reactions Criticality Noted [...] End Date Status Blood Glucose Monitoring Suppl (General Blood VERIO) w/Device KIT Use up to 4 times a day E11.9 1 Kit 09/03/2019 Active Aspirin EC 81 MG Oral Tablet Delayed ReleaseIndications:Ty pe 2 diabetes mellitus with hemoglobin A1c goal of less than 8.0% ([facility]) Take 1 Tab by mouth daily. 100 Tab 3 11/08/2020 Active OneTouch Delica Plus [id number]: Type 2 diabetes mellitus with hyperglycemia, with long-term current use of insulin ([facility]) Use to test blood sugar [...] goal of less than 7.0% ([facility]),Type 2 diabetes mellitus with hyperglycemia, with long-term current use of insulin ([facility]) Inject 3 mg under the skin once a week. 2 mL 5 12/18/2023 Active metFORMIN HCl 1000 MG Oral Tablet (Glucophage)Indicatio ns:Type 2 diabetes mellitus with hyperglycemia, with long-term current use of insulin ([facility]) TAKE 1 TABLET BY MOUTH TWICE A DAY WITH BREAKFAST AND DINNER 180 Tablet 01/13/2024 Active OneTouch Verio In Vitro Strip (Glucose Blood)Indications:Typ e 2 diabetes mellitus with hyperglycemia, with long-term current use of insulin ([facility]) USE TO TEST BLOOD SUGAR TWICE A DAY. DX E11.9 200 Strip 3 01/20/2024 Active Zyloprim 100 MG Oral Tablet (Allopurinol)Indicati ons:Gouty arthropathy TAKE 1 TABLET BY MOUTH ONCE DAILY 90 Tablet 1 02/03/2024 Active Jardiance 25 MG Oral Tablet (Empagliflozin)Indica tions:Type 2 diabetes mellitus with hyperglycemia, with long-term current use of insulin ([facility]CC) TAKE 1 TABLET BY MOUTH ONCE DAILY 90 Tablet 02/03/2024 Active Singulair 10 MG Oral Tablet (montelukast)Indicati ons:Mild persistent asthma without complication TAKE 1 TABLET BY MOUTH ONCE DAILY 90 Tablet 1 02/03/2024 Active Lipitor 20 MG Oral Tablet (atorvaSTATin)Indicat ions:Dyslipidemia, goal LDL below 100 TAKE 1 TABLET BY MOUTH AT BEDTIME 90 Tablet 02/03/2024 Active Levocetirizine Dihydrochloride 5 MG Oral TabletIndications:Pos t-nasal drainage TAKE 1/2 TABLET BY MOUTH BEFORE BEDTIME 45 Tablet 1 02/03/2024 Active Euthyrox 25 MCG Oral Tablet (levothyroxine)Indica tions:Acquired hypothyroidism TAKE 1 TABLET BY MOUTH AT LEAST 30 MINUTES PRIOR TO BREAKFAST OR OTHER MEDS 90 Tablet 02/03/2024 Active Fenofibrate Micronized 67 MG Oral [...] before bedtime. 180 Capsule 1 02/05/2024 Active Topiramate 50 MG Oral Tablet (topAMAX)Indications: Chronic migraine without aura without status migrainosus, not intractable TAKE 1 TABLET BY MOUTH EVERY MORNING AND BEFORE BEDTIME 60 Tablet 03/31/2024 Active documented as of this encounter (statuses [...] PPD 04/15/2017,09/21/2011,12/02/2006 Pneumococcal Conjugate Vacci ne, 20-valent ([id number]) 01/14/2023 Pneumococcal Polysaccharide PPV23 (Pneumovax) 09/23/2006 Season [...] encounter Miscellaneous Notes * Telephone Encounter - Jeffrey Rodriguez RPh - 03/31/2024 4:15 PM EDT Refused Prescriptions: Disp Refills Fenofibrate Micronized 67 MG Oral Capsule 30 Cap*5 Sig: TAKE 1 CAPSULE BY MOUTH DAILY.Refused By: JEFFREY RODRIGUEZ for Refusal: Too soon Electronically signed by Jeffrey Rodriguez [facility] at 03/31/2024 4:15 PM EDT documented in this encounter Plan of Treatment Upcoming Encounters Date Type Department Care Team (Late st Contact Info) Description 05/05/2024 4:20 PM EDT Office Visit Family Medicine [address] [phone] Sarbjit Carballo MD [address] [place] [address] [place] [address] Health Maintenance Due Date Last Done Comments HIV Screening 1979 Colonoscopy 2009 Sigmoidoscopy 2009 Zoster Vaccines (1 of 2) 2014 CKD PHOS USE SMARTSET 74400 01/22/2017 04/0 01/2016, 07/26/2015, 02/25/2015, Additional history exists Fecal Occult Blood Test 04/18/2018 04/18/2017, 11/27 Depression Screening 02/06/2023 02/06/2022 Albumin/Creatinine Ratio 01/12/2024 023, 12/08/2021, 11/23/2020, Additional history exists CKD HGB USE SMARTSET 82621 01/12/202401/11, 01/11/2023, 12/08/2021, Additional history exists TSH 01/12/2024 01/11/2023, 11/21, 11/23/2020, Additional history exists Diabetic Foot Exam 01/15/2024 01/14/2023, 0 12/12/2021, 11/23/2020, Additional history exists Mammogram 04/09/2024 04/09/2023, 02/0 04/2022, 11/25/2020, Additional history exists GFR 05/04/2024 11/04/2023, 03/2 01/2023, 12/08/2021, Additional history exists HbA1c 05/04/2024 11/04/2023, 032 01/2023, 05/04/2022, Additional history exists Cologuard 10/30/2024 [...] filedocumented as of this encounter Care Teams Financial Analysis Manager Relationship Specialty Start Date End Date Sarbjit Carballo MD [address] [place] [address] [place] [id number] PCP - General Family Medicine 07/12/22 documented as of this encounter
--- OUTSIDE RECORDS SUMMARY | 2024-06-08 23:21 | External Medical Summary | Summary of Care ---
Author Name Unknown Organization [facility] Address [address] [place] [address] Phone [phone] Care Team Providers Care Eyewear Manufacturing Tech Name Role Phone Christian Najera MD Primary Care Provide r Reason for Visit * Reason Comments eRx-Medication Refill Encounter Details Date Type Department Care Team (Late st Contact Info) Description 01/31/2024 Refill Family Medicine [address] [phone] Christian Najera MD [address] [place] [address] Gouty arthropathy; Type 2 diabetes mellitus with hyperglycemia, with long-term current use of insulin ([facility]); Mild persistent asthma without complication; Dyslipidemia, goal LDL below 100; Post-nasal drainage; Hypertriglyceridemia; Acquired hypothyroidism Allergies Active Allergy Reactions Criticality Noted Date Comments Bee Venom High 07/01/2017 Demerol Rash 03/01/2014 Lisinopril 03/07/2018 hyperkalemia Meperidine 01/26/2021 Other reaction(s): rash Meperidine Hcl High 03/29/2021 Penicillin G High 09/16/2001 Penicillins 01/03/2004 Other reaction(s): Other (See Comments) "Extremity stiffness" documented as of this encounter (statuses as of 02/03/2024) Medications Medication Sig Dispensed Refills Start Date End Date Status Blood Glucose Monitoring Suppl ([email or web address]) w/Device KIT Use up to 4 times a day E11.9 1 Kit 0 9 Active Aspirin EC 81 MG Oral Tablet Delayed ReleaseIndications: Type 2 diabetes mellitus with hemoglobin A1c goal of less than 8.0% ([facility]) Take 1 Tab by mouth daily. 100 Tab 3 1 Active OneTouch Delica Plus [id number] s:Type 2 diabetes mellitus with hyperglycemia, with long-term current use of insulin ([facility]) Use to test blood sugar TWICE a day dxE11.9 200 Each 3 2 Active Brimonidine Tartrate 0.2 % Ophthalmic Solution (Alphagan) INSTILL 1 DROP BY OPHTHALMIC ROUTE 2 TIMES EVERY DAY OK FOR 90 DAY SUPPLY. 0 2 Active Triamcinolone Acetonide 0.1 % External Cream (Aristocort)Indicat ions:Heat rash APPLY TO THE AFFECTED AREA TOPICALLY TWO TIMES A DAY 80 g 2 3 Active Amitriptyline HCl 25 MG Oral Tablet (Elavil) TAKE 1 TABLET BY MOUTH BEFORE BEDTIME 90 Tablet 3 3 Active Levalbuterol Tartrate 45 MCG/ACT Inhalation Aerosol (Xopenex HFA) Inhale 1 Puff by mouth every 4 hours as needed for Wheezing. 15 g 11 3 Active Topiramate 50 MG Oral Tablet (topAMAX)Indication s:Chronic migraine without aura without status migrainosus, not intractable TAKE 1 TABLET BY MOUTH IN THE MORNING AND BEFORE BEDTIME 180 Tablet 1 3 Active Metoprolol Succinate ER 25 MG [...] after use.. 12 g 5 3 Active Omeprazole 20 MG Oral Capsule Delayed Release (PriLOSEC)Indicatio ns:Gastro-esophagea l reflux disease without esophagitis Take 1 Capsule by mouth in the morning and 1 Capsule before bedtime. 180 Capsule 1 11/07/202 3 Active CPAP every night at bedtime. 0 Active Trulicity 3 MG/0.5ML Subcutaneous Solution Pen-injector (Dulaglutide)Indica tions:Type 2 diabetes mellitus with hemoglobin A1c goal of less than 7.0% ([facility]),Type 2 diabetes mellitus with hyperglycemia, with long-term current use of insulin ([facility]) Inject 3 mg under the skin once a week. 2 mL 5 4 Active metFORMIN HCl 1000 MG Oral Tablet (Glucophage)Indicat ions:Type 2 diabetes mellitus with hyperglycemia, with long-term current use of insulin ([facility]) TAKE 1 TABLET BY MOUTH TWICE A DAY WITH BREAKFAST AND DINNER 180 Tablet 0 4 Active OneTouch Verio In Vitro Strip (Glucose Blood)Indications:T ype 2 [...] [facility] [place]) TAKE 1 TABLET BY MOUTH ONCE DAILY 90 Tablet 0 4 Active Singulair 10 MG Oral Tablet (montelukast)Indica tions:Mild persistent asthma without complication TAKE 1 TABLET BY MOUTH ONCE DAILY 90 Tablet 1 4 Active Lipitor 20 MG Oral Tablet (atorvaSTATin)Indic ations:Dyslipidemia , goal LDL below 100 TAKE 1 TABLET BY MOUTH AT BEDTIME 90 Tablet 0 4 Active Levocetirizine Dihydrochloride 5 MG Oral TabletIndications:P ost-nasal drainage TAKE 1/2 TABLET BY MOUTH BEFORE BEDTIME 45 Tablet 1 4 Active Euthyrox 25 MCG Oral Tablet (levothyroxine)Bridget cations:Acquired hypothyroidism TAKE 1 TABLET BY MOUTH AT LEAST 30 MINUTES PRIOR TO BREAKFAST OR OTHER MEDS 90 Tablet 0 4 Active Fenofibrate Micronized 67 MG Oral Capsule Take 1 Capsule by mouth daily. 90 Capsule 0 4 Active Allopurinol 100 MG Oral Tablet (Zyloprim)Indicatio ns:Gouty arthropathy TAKE 1 TABLET BY MOUTH EVERY DAY 90 Tablet 3 3 024 Discontinued Levocetirizine Dihydrochloride 5 MG Oral TabletIndications:P ost-nasal drainage TAKE 1/2 TABLET BY MOUTH BEFORE BEDTIME 45 Tablet 2 3 024 Discontinued Atorvastatin Calcium 20 MG Oral Tablet (Lipitor)Indication s:Dyslipidemia, goal LDL below 100 TAKE 1 TABLET BY MOUTH EVERYDAY AT BEDTIME 90 Tablet 2 3 024 Discontinued Levothyroxine Sodium 25 MCG Oral Tablet (Levoxyl)Indication s:Acquired hypothyroidism TAKE 1 TABLET BY MOUTH AT LEAST 30 MINUTES PRIOR TO BREAKFEST OR OTHER MEDS 90 Tablet 2 3 024 Discontinued Fenofibrate Micronized 200 MG Oral CapsuleIndications: Hypertriglyceridemi a 1 tab by mouth daily 90 Capsule 1 3 024 Discontinued(Me dication/Dose Changed) Montelukast Sodium 10 MG Oral Tablet (Singulair)Indicati ons:Mild persistent asthma without complication TAKE 1 TABLET BY MOUTH EVERY DAY 90 Tablet 1 3 024 Discontinued Jardiance 25 MG Oral Tablet (Empagliflozin)Bridget cations:Type 2 diabetes mellitus with hyperglycemia, with long-term current use of insulin (HCC) TAKE 1 TABLET BY MOUTH EVERY DAY 90 Tablet 1 3 024 Discontinued documented as of this encounter (statuses as of 02/03/2024) Active Problems Problem Noted Date Diagnosed Date [...] as of this encounter (statuses as of 02/03/2024) Resolved Problems Problem Noted Date Diagnosed Date [...] as of this encounter (statuses as of 02/03/2024) Immunizations Name Administration Dates Next Due COVID-19 [...] 04/15/2017, 1,12/02/2006,04/13,04/09/2002,03/26/2002 Pneumococcal Conjugate Vacci ne, 20-valent ([id number]) 01/14/2023 Pneumococcal Polysaccharide PPV23 (Pneumovax) 09/23/2006 Season Influenza, Quad, PF, Adjuvanted, 65+ Yrs, IM (FLUAD) 06/21/2020 Seasonal Influenza, PF, 6 M & above, IM , (FluLaval or Fluzone) 10/28/2023,07/16/2022,08/09/2021 Seasonal Influenza, Quadriva lent, No Preserve, IM 07/13/2019,07/23/2018,07/23/2016,07/26 Seasonal Influenza, Split, I IV3, With Preserve, Inj 08/24/2014,07/23/2012,09/21/2011,07/17,08/24/2007 TDAP (age 10 and older)(Boostrix) 09/25/2018 TDAP (age 11 and older)(Adacel) 05/26/2008 documented as of this encounter Social [...] Miscellaneous Notes * Telephone Encounter - Deborah Pérez PHARM Tech - 02/03/2024 11:57 AM EDT Received message from [facility] regarding patient needing labs. Call Placed, Left message on [employer] advising of required labs Also. As per [facility] "LVM asking patient to call back to inform her of fenofibrate dose change. If patient returns call please transfer to next available pharmacist." Thank you, Deborah Pérez [facility] Stamp Pad Finisher II [facility] ([facility]) (formerly Telepharmacy) 02/03/2024,11:57 AM * Telephone Encounter - Jhon Martines [facility] - 02/03/2024 11:49 AM EDT Signed Prescriptions: Disp Refills Zyloprim 100 MG Oral Tablet (Allopurinol) 90 Tab*1 Sig: TAKE 1 TABLET BY MOUTH ONCE DAILYAuthorizing Provider: CHRISTIAN NAJERA User: JHON MARTINES Jardiance 25 MG Oral Tablet (Empagliflozin)90 Tab*0 Sig: TAKE 1 TABLET BY MOUTH ONCE DAILYAuth orizing Provider: CHRISTIAN NAJERA User: JHON MARTINES Singulair 10 MG Oral Tablet (montelukast) 90 Tab*1 Sig: TAKE 1 TABLET BY MOUTH ONCE DAILYAuthorizing Provider: CHRISTIAN NAJERA User: JHON MARTINES Lipitor 20 MG Oral Tablet (atorvaSTATin) 90 Tab*0 Sig: TAKE 1 TABLET BY MOUTH AT BEDTIMEAuthorizing Provider: CHRISTIAN NAJERA User: JHON MARTINES Levocetirizine Dihydrochloride 5 MG Oral T*45 Tab*1 Sig: TAKE 1/2 TABLET BY MOUTH BEFORE BEDTIMEAuthorizing Provider: CHRISTIAN NAJERA User: JHON MARTINES Euthyrox 25 MCG Oral Tablet (levothyroxine)90 Tab*0 Sig: TAKE 1 TABLET BY MOUTH AT LEAST 30 MINUTES PRIOR TO BREAKFAST OR OTHER MEDSAuthorizing Provider: CHRISTIAN NAJERA User: JHON MARTINES Fenofibrate Micronized 67 MG Oral Capsule 90 Cap*0 Sig: Take 1 Capsule by mouth daily.Authorizing Provider: CHRISTIAN NAJERARefused Prescriptions: Disp Refills Fenofibrate Micronized 200 MG Oral Capsule 30 Cap*1 Sig: TAKE 1 CAPSULE BY MOUTH ONCE DAILYRefused By: JHON MARTINES for Refusal: Dose needs clarifi cation * Telephone Encounter - Jhon Martines RPh - 02/03/2024 11:47 AM EDT LVM asking patient to call back to inform her of fenofibrate dose change. If patient returns call please transfer to next available pharmacist. Thank you, Jhon Martines, PharmD Clinical Pharmacist [facility] ([facility]) 02/03/24 11:48 AM [phone] * Telephone Encounter - Christian Najera MD - 02/03/2024 11:39 AM EDT OK * Telephone Encounter - Jhon Martines [facility] - 02/03/2024 11:14 AM EDT PCP: Unable to authorize medication refills for pended medication(s) at this time. Patient's creatinine clearance is too low. Serum creatinine: 1.3 mg/dL (H) 11/04/23 08 Estimated creatinine clearance: 49.4 mL/min (A) Per UpToDate: CrCl >30 to 80 mL/minute: Use lowest available tablet strength Pending script for 67mg capsule. Please approve if agreeable and route back to me to inform patient. Pending Prescriptions: Disp Refills Fenofibrate Micronized 67 MG Oral Capsule 90 Cap*0 Sig: Take 1 Capsule by mouth daily. Thank you, Jhon Martines PharmD Clinical Pharmacist [facility] ([facility]) 02/03/24 11:18 AM [phone] * Telephone Encounter - Jhon Martiens [facility] - 02/03/2024 11:11 AM EDT Outbound: Provided 90 days supply with 0 refill(s). Per refill protocol patient should have Lipid panel, TSH on file within past year. Reviewed AMP report, Care Gaps/Health Maintenance, medications list, and for any routine labs typically ordered for this patient. Lab orders placed. Please contact patient to advise of labs ordered for blood draw. Recommend patient to fast if able for labs. Patient may still have water and regular medications. Advise to obtain labs before requesting the next refill. Thank you, Jhon Martines PharmD Clinical Pharmacist [facility] ([facility]) 02/03/24 11:14 AM [phone] documented in this encounter Plan of Treatment Upcoming Encounters Date Type Department Care Team (Late st Contact Info) Description 05/05/2024 4:20 PM EDT Office Visit Family Medicine [address] [place] [phone] Christian Najera MD [address] [place] [address] [place] [address] Scheduled Orders Name Type Priority Associated Diagnoses Orde r Schedule TSH WITH FREE T4 IF INDICATED Lab Routine Acquired hypothyroidism Expected: 02/03/2024 (Approximate), Expires: 02/02/2025 Health Maintenance Due Date Last Done Comments HIV Screening 1979 Colonoscopy 2009 Sigmoidoscopy 2009 Zoster Vaccines (1 of 2) 2014 CKD PHOS USE SMARTSET 96405 01/22/2017 04/0 01/2016, 07/26/2015, 02/25/2015, Additional history exists Fecal Occult Blood Test 04/18/2018 04/18/2017, 11/27 Depression Screening 02/06/2023 02/06/2022 Albumin/Creatinine Ratio 01/12/2024 023, 12/08/2021, 11/23/2020, Additional history exists CKD HGB USE SMARTSET 69445 01/12/202401/11, 01/11/2023, 12/08/2021, Additional history exists TSH 01/12/2024 01/11/2023, 11/21, 11/23/2020, Additional history exists Diabetic Foot Exam 01/15/2024 01/14/2023, 0 12/12/2021, 11/23/2020, Additional history exists Diabetic Eye Exam 01/26/2024 01/25/2023, , 01/21/2020, Additional history exists Mammogram 04/09/2024 04/09/2023, 02/0 04/2022, 11/25/2020, Additional history exists GFR 05/04/2024 11/04/2023, 12/20, 12/08/2021, Additional history exists HbA1c 05/04/2024 11/04/2023, 12/20, 05/04/2022, Additional history exists Cologuard 10/30/2024 10/30/2021, 09/22, 10/19/2021, Additional history exists Colorectal Cancer Screening 10/30/2024 Lipid Panel 01/12/2028 01/11/2023, 11/21, 06/09/2021, Additional [...] as of this encounter Visit Diagnoses Diagnosis Gouty arthropathy Gouty arthropathy, unspecified Type 2 diabetes mellitus with hyperglycemia, with long-term current use of insulin (HCC) Mild persistent asthma without complication Unspecified asthma Dyslipidemia, goal LDL below 100 Other and unspecified hyperlipidemia Post-nasal drainage Unspecified sinusitis (chronic) Hypertriglyceridemia Pure hyperglyceridemia Acquired hypothyroidism Unspecified hypothyroidism documented in this encounter Care Teams Eyewear Manufacturing Tech Relationship Specialty Start Date End Date Christian Najera MD [address] [place] [address] [place] [address] PCP - General Family Medicine 07/12/22 documented as of this encounter
--- OUTSIDE RECORDS SUMMARY | 2024-06-08 23:21 | External Medical Summary | Summary of Care ---
Author Name Unknown Organization [facility] Address [address] [place] [address] Phone [phone] Care Team Providers Care Singeing Torch Operator Name Role Phone Christian Najera MD Primary Care Provide r Reason for Visit * Reason Comments eRx-Medication Refill Encounter Details Date Type Department Care Team (Late st Contact Info) Description 01/31/2024 Refill Family Medicine [address] [phone] Christian Najera MD [address] [place] [address] Gouty arthropathy; Type 2 diabetes mellitus with hyperglycemia, with long-term current use of insulin ([facility]); Mild persistent asthma without complication; Dyslipidemia, goal [...] End Date Status Blood Glucose Monitoring Suppl ([employer]) w/Device KIT Use up to 4 times a day E11.9 1 Kit 0 9 Active Aspirin EC 81 MG Oral Tablet Delayed ReleaseIndications: Type 2 diabetes mellitus with hemoglobin A1c goal of less than 8.0% ([facility]) Take 1 Tab by mouth daily. 100 Tab 3 1 Active OneTouch Delica Plus [id number] s:Type 2 diabetes mellitus with hyperglycemia, with long-term current use of insulin ([facility]) Use to test blood sugar [...] A1c goal of less than 7.0% ([facility]),Type 2 diabetes mellitus with hyperglycemia, with long-term current use of insulin ([facility]) Inject 3 mg under the skin once a week. 2 mL 5 4 Active metFORMIN HCl 1000 MG Oral Tablet (Glucophage)Indicat ions:Type 2 diabetes mellitus with hyperglycemia, with long-term current use of insulin ([facility]) TAKE 1 TABLET BY MOUTH TWICE A DAY WITH BREAKFAST AND DINNER 180 Tablet 0 4 Active OneTouch Verio In Vitro Strip (Glucose Blood)Indications:T ype 2 diabetes mellitus with hyperglycemia, with long-term current use of insulin ([facility]) USE TO TEST BLOOD SUGAR TWICE A DAY. DX E11.9 200 Strip 3 4 Active Zyloprim 100 MG Oral Tablet (Allopurinol)Indica tions:Gouty arthropathy TAKE 1 TABLET BY MOUTH ONCE DAILY 90 Tablet 1 4 Active Jardiance 25 MG Oral Tablet (Empagliflozin)Bridget cations:Type 2 diabetes mellitus with hyperglycemia, with long-term current use of insulin ([facility]) TAKE 1 TABLET BY MOUTH ONCE DAILY [...] 04/15/2017, 1,12/02/2006,04/13,04/09/2002,03/26/2002 Pneumococcal Conjugate Vacci ne, 20-valent ([id number]) 01/14/2023 Pneumococcal Polysaccharide PPV23 (Pneumovax) 09/23/2006 Season [...] 02/03/2024 11:57 AM EDT Received message from [facility] regarding patient needing labs. Call Placed, Left message on [employer] advising of required labs Also. As per [facility] "LVM asking patient to call back to inform her of fenofibrate dose change. If patient returns call please transfer to next available pharmacist." Thank you, Deborah Pérez [facility] Direct Mail Clerk II [facility] ([facility]) (formerly Telepharmacy) 02/03/2024,11:57 AM * Telephone Encounter - Jhon Martines [facility] - 02/03/2024 11:49 AM EDT [...] T*45 Tab*1 Sig: TAKE 1/2 TABLET BY MOUTHBEFORE BEDTIMEAuthorizing Provider: CHRISTIAN NAJERA User: JHON MARTINES [...] cation * Telephone Encounter - Jhon Martines RP - 02/03/2024 11:47 AM EDT LVM asking patient to call back to inform her of fenofibrate dose change. If patient returns call please transfer to next available pharmacist. Thank you, Jhon Martines, PharmD Clinical Pharmacist [facility] ([facility]) 02/03/24 11:48 AM [phone] * Telephone Encounter - Christian Najera MD - 02/03/2024 11:39 AM EDT OK * Telephone Encounter - Jhon Martines [facility] - 02/03/2024 11:14 AM EDT [...] Clinical Pharmacy Services ([facility]) 02/03/24 11:18 AM [phone] * Telephone Encounter - Jhon Martines [facility] - 02/03/2024 11:11 AM EDT [...] Clinical Pharmacy Services ([facility]) 02/03/24 11:14 AM [phone] documented in this encounter Plan of Treatment Upcoming Encounters Date Type Department Care Team (Late st Contact Info) Description 05/05/2024 4:20 PM EDT Office Visit Family Medicine [address] [place] [phone] Christian Najera MD [address] [place] [address] [place] [address] Scheduled Orders Name Type Priority Associated Diagnoses Orde r Schedule TSH WITH FREE T4 IF INDICATED Lab Routine Acquired hypothyroidism Expected: 02/03/2024 (Approximate), Expires: 02/02/2025 Health Maintenance Due Date Last Done Comments HIV Screening 1979 Colonoscopy 2009 Sigmoidoscopy 2009 Zoster Vaccines (1 of 2) 2014 CKD PHOS USE SMARTSET 92354 01/22/2017 04/0 01/2016, 07/26/2015, 02/25/2015, Additional history exists Fecal Occult Blood Test 04/18/2018 04/18/2017, 11/27 Depression Screening 02/06/2023 02/06/2022 Albumin/Creatinine Ratio 01/12/2024 023, 12/08/2021, 11/23/2020, Additional history exists CKD HGB USE SMARTSET 34975 01/12/202401/11, 01/11/2023, 12/08/2021, Additional history exists TSH [...] hypothyroidism documented in this encounter Care Teams Singeing Torch Operator Relationship Specialty Start Date End Date Christian Najera MD [address] [place] [address] [place] [address] PCP - General Family Medicine 07/12/22 documented as of this encounter
--- OUTSIDE RECORDS SUMMARY | 2024-06-08 23:21 | External Medical Summary | Summary of Care ---
Author Name Unknown Organization [facility] Address [address] [place] [address] Phone [phone] Care Team Providers Care Waitstaff Name Role Phone Sarbjit Carballo MD Primary Care Provide r Reason for Visit * Reason Comments eRx-Medication Refill Encounter Details Date Type Department Care Team (Late st Contact Info) Description 01/20/2024 Refill Pharmacy, [address] [place] [address] Sarbjit Carballo MD [address] [place] [address] [place] [address] Type 2 diabetes mellitus with hyperglycemia, with long-term current use of insulin ([facility]) Allergies Active Allergy Reactions Criticality Noted Date Comments Bee Venom High 07/01/2017 Demerol Rash 03/01/2014 Lisinopril 03/07/2018 hyperkalemia Meperidine 01/26/2021 Other reaction(s): rash Meperidine Hcl High 03/29/2021 Penicillin G High 09/16/2001 Penicillins 01/03/2004 Other reaction(s): Other (See Comments) "Extremity stiffness" documented as of this encounter (statuses as of 01/20/2024) Medications Medication Sig Dispensed Refills Start Date End Date Status Blood Glucose Monitoring Suppl ([employer] VERIO) w/Device KIT Use up to 4 times a day E11.9 1 Kit 0 9 Active Aspirin EC 81 MG Oral Tablet Delayed ReleaseIndications:T ype 2 diabetes mellitus with hemoglobin A1c goal of less than 8.0% ([facility]) Take 1 Tab by mouth daily. 100 Tab 3 1 Active OneTouch Delica Plus [id number] :Type 2 diabetes mellitus with hyperglycemia, with long-term current use of insulin ([facility]) Use to test blood sugar TWICE [...] A DAY 80 g 2 3 Active Allopurinol 100 MG Oral Tablet (Zyloprim)Indication s:Gouty arthropathy TAKE 1 TABLET BY MOUTH EVERY DAY 90 Tablet 3 3 Active Amitriptyline HCl 25 MG Oral Tablet (Elavil) TAKE 1 TABLET BY MOUTH BEFORE BEDTIME 90 Tablet 3 3 Active Levocetirizine Dihydrochloride 5 MG Oral TabletIndications:Po st-nasal drainage TAKE 1/2 TABLET BY MOUTH BEFORE BEDTIME 45 Tablet 2 3 Active Atorvastatin Calcium 20 MG Oral Tablet (Lipitor)Indications :Dyslipidemia, goal LDL below 100 TAKE 1 TABLET BY MOUTH EVERYDAY AT BEDTIME 90 Tablet 2 3 Active Levothyroxine Sodium 25 MCG Oral Tablet (Levoxyl)Indications :Acquired hypothyroidism TAKE 1 TABLET BY MOUTH AT LEAST 30 MINUTES PRIOR TO BREAKFEST OR OTHER MEDS 90 Tablet 2 3 Active Levalbuterol Tartrate 45 MCG/ACT Inhalation Aerosol (Xopenex HFA) Inhale 1 Puff by mouth every 4 hours as needed for Wheezing. 15 g 11 3 Active Fenofibrate Micronized 200 MG Oral CapsuleIndications:H ypertriglyceridemia 1 tab by mouth daily 90 Capsule 1 3 Active Topiramate 50 MG Oral Tablet (topAMAX)Indications :Chronic migraine without aura without status migrainosus, not intractable TAKE 1 TABLET BY MOUTH IN THE MORNING AND BEFORE BEDTIME 180 Tablet 1 3 Active Montelukast Sodium 10 MG Oral Tablet (Singulair)Indicatio ns:Mild persistent asthma without complication TAKE 1 TABLET BY MOUTH EVERY DAY 90 Tablet 1 3 Active Jardiance 25 MG Oral Tablet (Empagliflozin)Indic ations:Type 2 diabetes mellitus with hyperglycemia, with long-term current use of insulin ([facility]) TAKE 1 TABLET BY MOUTH EVERY DAY 90 Tablet 1 3 Active Metoprolol Succinate ER [...] 1 Capsule before bedtime. 180 Capsule 1 3 Active CPAP every night at bedtime. 0 Active Trulicity 3 MG/0.5ML Subcutaneous Solution Pen-injector (Dulaglutide)Indicat ions:Type 2 diabetes mellitus with hemoglobin A1c goal of less than 7.0% (HCC),Type 2 diabetes mellitus with hyperglycemia, with long-term current use of insulin ([facility]) Inject 3 mg under the skin once a week. 2 mL 5 4 Active metFORMIN HCl 1000 MG Oral Tablet (Glucophage)Indicati ons:Type 2 diabetes mellitus with hyperglycemia, with long-term current use of insulin ([facility]) TAKE 1 TABLET BY MOUTH TWICE A DAY WITH BREAKFAST AND DINNER 180 Tablet 0 4 Active OneTouch Verio In Vitro Strip (Glucose Blood)Indications:Ty pe 2 diabetes mellitus with hyperglycemia, with long-term current use of insulin ([facility]) USE TO TEST BLOOD SUGAR TWICE A DAY. DX E11.9 200 Strip 3 4 Active OneTouch Verio In Vitro Strip (Glucose Blood)Indications:Ty pe 2 diabetes mellitus with hyperglycemia, with long-term current use of insulin ([facility]) USE TO TEST BLOOD SUGAR TWICE A DAY. DX E11.9 200 Strip 3 3 01/20/20 24 Discontinued documented as of this encounter (statuses as of 01/20/2024) Active Problems Problem Noted Date Diagnosed Date [...] as of this encounter (statuses as of 01/20/2024) Resolved Problems Problem Noted Date Diagnosed Date [...] as of this encounter (statuses as of 01/20/2024) Immunizations Name Administration Dates Next Due COVID-19 mRNA, LNP-s, No Pre serve, 2-Dose Series (Moderna) 09/26/2021,03/15/2021,02/08/2021 COVID-19, MRNA-LNP, 23-24, P F, 50 MCG/0.5 mL, 12 YRS AND ABOVE, IM (MODERNA-Spikevax) 11/22/2023 Covid-19, Mrna, Lnp-s, Pf, B ivalent, 50 Mcg, IM, 12 yrs and above (Moderna) 11/02/2022 Hepatitis B, 20+ yrs 09/04/1999,04/04/1999,03/04 PPD 04/15/2017,09/21/2011,12/02/2006 Pneumococcal Conjugate Vacci ne, 20-valent ([id number]) 01/14/2023 Pneumococcal Polysaccharide PPV23 (Pneumovax) 09/23/2006 Season [...] encounter Miscellaneous Notes * Telephone Encounter - Silvia Hallman MD - 01/20/2024 9:06 AM EDTSigned Prescriptions: Disp Refills OneTouch Verio In Vitro Strip (Glucose Blo*[address] St*3 Sig: USE TO TEST BLOOD SUGAR TWICE A DAY. DX E11.9 Authorizing Provider: SILVIA HALLMAN * Telephone Encounter - Claudine Haynes [facility] - 01/20/2024 8:09 AM EDT Pending Prescriptions: Disp Refills OneTouch Verio In Vitro Strip [Pharmacy Me*[address]*3 Sig: USE TOTEST BLOOD SUGAR TWICE A DAY. DX E11.9 documented in this encounter Plan of Treatment Upcoming Encounters Date Type Department Care Team (Late st Contact Info) Description 05/05/2024 4:20 PM EDT Office Visit Family Medicine [address] [phone] Sarbjit Carballo MD [address] [place] [address] [place] [address] Health Maintenance Due Date Last Done Comments HIV Screening 1979 Colonoscopy 2009 Sigmoidoscopy 2009 Zoster Vaccines (1 of 2) 2014 Fecal Occult Blood Test 04/18/2018 04/18/2017, 11/27 Depression Screening 02/06/2023 02/06/2022 Albumin/Creatinine Ratio 01/12/2024 023, 12/08/2021, 11/23/2020, Additional history exists TSH 01/12/2024 01/11/2023, 11/21, 11/23/2020, Additional history exists Diabetic Foot Exam 01/15/2024 01/14/2023, 0 12/12/2021, 11/23/2020, Additional history exists Diabetic Eye Exam 01/26/2024 01/25/2023, , 01/21/2020, Additional history exists Mammogram 04/09/2024 04/09/2023, 04/2022, 11/25/2020, Additional history exists GFR 05/04/2024 [...] with long-term current use of insulin (HCC) documented in this encounter Care Teams Waitstaff Relationship Specialty Start Date End Date Sarbjit Carballo MD [address] [place] [address] [place] [id number] PCP - General Family Medicine 07/12/22 documented as of this encounter
--- OUTSIDE RECORDS SUMMARY | 2024-06-08 23:21 | External Medical Summary | Summary of Care ---
Author Name Unknown Organization [facility] Address [address] [place] [address] Phone [phone] Care Team Providers Care Special Education Resource Teacher Name Role Phone Christian Carballo MD Primary Care Provide r Reason for Visit * Reason Comments eRx-Medication Refill Encounter Details Date Type Department Care Team (Late st Contact Info) Description 01/11/2024 Refill Family Medicine [address] [phone] Christian Carballo MD [address] [place] [id number] Encounter for long-term (current) use of medications*; Type 2 diabetes mellitus with hyperglycemia, with long-term current use of insulin (HCC) Allergies Active Allergy Reactions Criticality Noted Date Comments Bee Venom High 07/01/2017 Demerol Rash 03/01/2014 Lisinopril 03/07/2018 hyperkalemia Meperidine 01/26/2021 Other reaction(s): rash Meperidine Hcl High 03/29/2021 Penicillin G High 09/16/2001 Penicillins 01/03/2004 Other reaction(s): Other (See Comments) "Extremity stiffness" documented as of this encounter (statuses as of 01/15/2024) Medications Medication Sig Dispensed Refills Start Date End Date Status Blood Glucose Monitoring Suppl ([employer] VERIO) w/Device KIT Use up to 4 times a day E11.9 1 Kit 0 9 Active Aspirin EC 81 MG Oral Tablet Delayed ReleaseIndications:T ype 2 diabetes mellitus with hemoglobin A1c goal of less than 8.0% ([facility]) Take 1 Tab by mouth daily. 100 Tab 3 1 Active OneTouch Delica Plus [id number] :Type 2 diabetes mellitus with hyperglycemia, with long-term current use of insulin ([facility]) Use to test blood sugar TWICE a day dxE11.9 200 Each 3 2 Active Brimonidine Tartrate 0.2 % Ophthalmic Solution (Alphagan) INSTILL 1 DROP BY OPHTHALMIC ROUTE 2 TIMES EVERY DAY OK FOR 90 DAY SUPPLY. 0 2 Active OneTouch Verio In Vitro Strip (Glucose Blood)Indications:Ty pe 2 diabetes mellitus with hyperglycemia, with long-term current use of insulin ([facility]) USE TO TEST BLOOD SUGAR TWICE A DAY. DX E11.9 200 Strip 3 3 Active Triamcinolone Acetonide 0.1 % External Cream [...] long-term current use of insulin ([facility]) TAKE 1 TABLET BY MOUTH EVERY [...] long-term current use of insulin ([facility]) Inject 3 mg under the skin once a week. 2 mL 5 4 Active metFORMIN HCl 1000 MG Oral Tablet (Glucophage)Indicati ons:Type 2 diabetes mellitus with hyperglycemia, with long-term current use of insulin (HCC) TAKE 1 TABLET BY MOUTH TWICE A DAY WITH BREAKFAST AND DINNER 180 Tablet 0 4 Active metFORMIN HCl 1000 MG Oral Tablet (Glucophage)Indicati ons:Type 2 diabetes mellitus with hyperglycemia, with long-term current use of insulin (HCC) TAKE 1 TABLET BY MOUTH TWICE A DAY WITH BREAKFAST AND DINNER 180 Tablet 3 4 01/13/20 24 Discontinued documented as of this encounter (statuses as of 01/15/2024) Active Problems Problem Noted Date Diagnosed Date [...] as of this encounter (statuses as of 01/15/2024) Resolved Problems Problem Noted Date Diagnosed Date [...] as of this encounter (statuses as of 01/15/2024) Immunizations Name Administration Dates Next Due COVID-19 [...] 04/15/2017, 1,12/02/2006,04/13,04/09/2002,03/26/2002 Pneumococcal Conjugate Vacci ne, 20-valent ([id number]) 01/14/2023 Pneumococcal Polysaccharide PPV23 (Pneumovax) 09/23/2006 Season [...] encounter Miscellaneous Notes * Telephone Encounter - Corby Warren - 01/15/2024 12:23 PM EDT Received message from [facility] regarding patient needing labs. Patient was notified. Successfully contacted patient and provided [facility] message. * Telephone Encounter - Moncho Nance [facility] - 01/13/2024 7:28 AM EDTSigned Prescriptions: Disp Refills metFORMIN HCl 1000 MG Oral Tablet (Glucoph*180 Ta*0 Sig: TAKE 1TABLET BY MOUTH TWICE A DAY WITH BREAKFAST AND DINNERAuthorizing Provider: CHRISTIAN CARBALLO User: MONCHO GOODMAN * Telephone Encounter - Moncho Nance [facility] - 01/13/2024 7:27 AM EDT Provided 90 days supply with 1 refill(s) until upcoming appointment. Per refill protocol patient should have Lipid panel on file within past year. Reviewed AMP report, Care Gaps/Health Maintenance, medications list, and for any routine labs typically ordered for this patient. Lab orders placed. Please contact patient to advise of labs ordered for blood draw. Fasting is not required. Advise toobtain labs before her scheduled office visit 05/05/2024. Thank You, Moncoh Goodman [facility] Clinical Pharmacist [facility] ([facility]) (formerly Telepharmacy) 01/13/2024, 7:27 AM * Telephone Encounter - Moncho Nance [facility] - 01/13/2024 7:25 AM EDT Pending Prescriptions: Disp Refills metFORMIN HCl 1000 MG Oral Tablet (Glucop*180 Ta*1 Sig: TAKE 1 TABLET BY MOUTH TWICE A DAY WITH BREAKFAST AND DINNER Last Visit: 06/10/2023 (in office), 08/27/2023 (telemedicine) Next Visit: 05/05/2024 If no future appointments scheduled, and last appointment is greater than a year ago, please schedule patient for a follow-up appointment Last date the medication was ordered: 11/07/23 Pharmacy: [id number] [id number] [facility] Is this request for a controlled substance? No Urine Drug Screen:No results found for this or any previous visit. Patient Phone Numbers Labs: Lab Results Component Value Date/Time CREAT 1.3 (H) 11/04/2023 08:27 AM CREAT 1.0 09/03/2019 01:25 PM POTASSIUM 5.0 11/04/2023 08:27 AM POTASSIUM 5.0 09/03/2019 01:25 PM TSH 4.64 (H) 01/11/2023 08:29 AM TSH 2.90 09/03/2019 01:25 PM LDLCALC 43 09/25/2018 09:21 AM LDLDIRECT 64 01/11/2023 08:29 AM LDLDIRECT 39 09/03/2019 01:25 PM LDLDIRECT 98 01/08/2011 11:50 AM ALT 20 01/11/2023 08:29 AM ALT 32 09/03/2019 01:25 PM HGBA1C 8.4 (H) 11/04/2023 08:27 AM HGBA1C 13.3 (H) 09/03/2019 01:25 PM documented in this encounter Plan of Treatment Upcoming Encounters Date Type Department Care Team (Late st Contact Info) Description 05/05/2024 4:20 PM EDT Office Visit Family Medicine [address] [place] [phone] Christian Carballo MD [address] [place] [address] [place] [phone] Scheduled Orders Name Type Priority Associated Diagnoses Orde r Schedule LIPID PANEL WITH DIRECT LDL IF TG IS HIGH Lab Routine Encounter for long-term (current) use of medications Expected: 01/13/2024 (Approximate), Expires: 01/12/2025 Health Maintenance Due Date Last Done Comments [...] 01/21/2020, Additional history exists Mammogram 04/09/2024 04/09/2023, 020 04/2022, 11/25/2020, Additional history exists GFR 05/04/2024 11/04/2023, 2 01/2023, 12/08/2021, Additional history exists HbA1c 05/04/2024 [...] Diagnosis Encounter for long-term (current) use of medications- Primary Encounter for long-term (current) use of other medications Type 2 diabetes mellitus with hyperglycemia, with long-term current use of insulin (HCC) documented in this encounter Care Teams Special Education Resource Teacher Relationship Specialty Start Date End Date Christian Carballo MD [address] [place] [address] [place] [phone] PCP - General Family Medicine 07/12/22 documented as of this encounter
--- OUTSIDE RECORDS SUMMARY | 2024-06-08 23:21 | External Medical Summary | Summary of Care ---
Author Name Unknown Organization [facility] Address [address] [place] [address] Phone [phone] Care Team Providers Care Fine Artist Name Role Phone Christian Carballo MD Primary Care Provide r Reason for Visit * Reason Onset Date Comments Medication Refill 02/05/2024 Encounter Details Date Type Department Care Team (Late st Contact Info) Description 02/05/2024 Refill Family Medicine [address] [phone] Christian Carballo MD [address] [place] [id number] Gastro-esophageal reflux disease without esophagitis Allergies Active Allergy Reactions Criticality Noted Date Comments Bee Venom High 07/01/2017 Demerol Rash 03/01/2014 Lisinopril 03/07/2018 hyperkalemia Meperidine 01/26/2021 Other reaction(s): rash Meperidine Hcl High 03/29/2021 Penicillin G High 09/16/2001 Penicillins 01/03/2004 Other reaction(s): Other (See Comments) "Extremity stiffness" documented as of this encounter (statuses as of 02/05/2024) Medications Medication Sig Dispensed Refills Start Date End Date Status Blood Glucose Monitoring Suppl ([employer] VERIO) w/Device KIT Use up to 4 times a day E11.9 1 Kit 0 09/03/2019 Active Aspirin EC 81 MG Oral Tablet Delayed ReleaseIndications:T ype 2 diabetes mellitus with hemoglobin A1c goal of less than 8.0% ([facility]) Take 1 Tab by mouth daily. 100 Tab 3 11/08/2020 Active OneTouch Delica Plus [id number] :Type 2 diabetes mellitus with hyperglycemia, with long-term current use of insulin ([facility]) Use to test blood sugar TWICE a day dxE11.9 200 Each 3 12/25/2021 Active Brimonidine Tartrate 0.2 % Ophthalmic Solution (Alphagan) INSTILL 1 DROP BY OPHTHALMIC ROUTE 2 TIMES EVERY DAY OK FOR 90 DAY SUPPLY. 0 05/26/2022 Active Triamcinolone Acetonide 0.1 % External [...] 08/13/2023 Active CPAP every night at bedtime. 0 Active Trulicity 3 MG/0.5ML Subcutaneous Solution Pen-injector (Dulaglutide)Indicat ions:Type 2 diabetes mellitus with hemoglobin A1c goal of less than 7.0% ([facility]),Type 2 diabetes mellitus with hyperglycemia, with long-term current use of insulin ([facility]) Inject 3 mg under the skin once a week. 2 mL 5 12/18/2023 Active metFORMIN HCl 1000 MG Oral Tablet (Glucophage)Indicati ons:Type 2 diabetes mellitus with hyperglycemia, with long-term current use of insulin ([facility]) TAKE 1 TABLET BY MOUTH TWICE A DAY WITH BREAKFAST AND DINNER 180 Tablet 0 01/13/2024 Active OneTouch Verio In Vitro Strip (Glucose Blood)Indications:Ty pe 2 diabetes mellitus with hyperglycemia, with long-term current use of insulin ([facility]) USE TO TEST BLOOD SUGAR TWICE A DAY. DX E11.9 200 Strip 3 01/20/2024 Active Zyloprim 100 MG Oral Tablet (Allopurinol)Indicat ions:Gouty arthropathy TAKE 1 TABLET BY MOUTH ONCE DAILY 90 Tablet 1 02/03/2024 Active Jardiance 25 MG Oral Tablet (Empagliflozin)Indic ations:Type 2 diabetes mellitus with hyperglycemia, with long-term current use of insulin ([facility]) TAKE 1 TABLET BY MOUTH ONCE DAILY 90 Tablet 0 02/03/2024 Active Singulair 10 MG Oral Tablet (montelukast)Indicat ions:Mild persistent asthma without complication TAKE 1 TABLET BY MOUTH ONCE DAILY 90 Tablet 1 02/03/2024 Active Lipitor 20 MG Oral Tablet (atorvaSTATin)Indica tions:Dyslipidemia, goal LDL below 100 TAKE 1 TABLET BY MOUTH AT BEDTIME 90 Tablet 0 02/03/2024 Active Levocetirizine Dihydrochloride 5 MG Oral TabletIndications:Po st-nasal drainage TAKE 1/2 TABLET BY MOUTH BEFORE BEDTIME 45 Tablet 1 02/03/2024 Active Euthyrox 25 MCG Oral Tablet (levothyroxine)Indic ations:Acquired hypothyroidism TAKE 1 TABLET BY MOUTH AT LEAST 30 MINUTES PRIOR TO BREAKFAST OR OTHER MEDS 90 Tablet 0 02/03/2024 Active Topamax 50 MG Oral Tablet (Topiramate)Indicati ons:Chronic migraine without aura without status migrainosus, not intractable TAKE 1 TABLET BY MOUTH EVERY MORNING AND BEFORE BEDTIME 60 Tablet 1 02/04/2024 Active Fenofibrate Micronized 67 MG Oral Capsule Take 1 Capsule by mouth daily. 90 Capsule 0 02/03/2024 Active Amitriptyline HCl 25 MG Oral Tablet (Elavil) TAKE 1 TABLET BY MOUTH BEFORE BEDTIME 90 Tablet 3 02/05/2024 Active Omeprazole 20 MG Oral Capsule Delayed Release (PriLOSEC)Indication s:Gastro-esophageal reflux disease without esophagitis Take 1 Capsule by mouth in the morning and 1 Capsule before bedtime. 180 Capsule 1 02/05/2024 Active Amitriptyline HCl 25 MG Oral Tablet (Elavil) TAKE 1 TABLET BY MOUTH BEFORE BEDTIME 90 Tablet 3 03/05/2023 02/05/20 24 Discontinu ed(Refill) Omeprazole 20 MG Oral Capsule Delayed Release (PriLOSEC)Indication s:Gastro-esophageal reflux disease without esophagitis Take 1 Capsule by mouth in the morning and 1 Capsule before bedtime. 180 Capsule 1 08/27/2023 02/05/20 24 Discontinu ed(Refill) documented as of this encounter (statuses as of 02/05/2024) Active Problems Problem Noted Date Diagnosed Date [...] as of this encounter (statuses as of 02/05/2024) Resolved Problems Problem Noted Date Diagnosed Date [...] as of this encounter (statuses as of 02/05/2024) Immunizations Name Administration Dates Next Due COVID-19 mRNA, LNP-s, No Pre serve, 2-Dose Series (Moderna) 09/26/2021,03/15/2021,02/08/2021 COVID-19, MRNA-LNP, 23-24, P F, 50 MCG/0.5 mL, 12 YRS AND ABOVE, IM (MODERNA-Spikevax) 11/22/2023 Covid-19, Mrna, Lnp-s, Pf, B ivalent, 50 Mcg, IM, 12 yrs and above (Moderna) 11/02/2022 Hepatitis B, 20+ yrs 09/04/1999,04/04/1999,03/04 PPD 04/15/2017,09/21/2011,12/02/2006 Pneumococcal Conjugate Vacci ne, 20-valent ([id number]) 01/14/2023 Pneumococcal Polysaccharide PPV23 (Pneumovax) 09/23/2006 Season [...] Telephone Encounter - Christian Carballo MD - 02/05/2024 4:09 PM EDT Signed Prescriptions: Disp Refills Amitriptyline HCl 25 MG Oral Tablet (Elavi*90 Tab*3 Sig: TAKE 1 TABLET BY MOUTH BEFORE BEDTIME Authorizing Provider: CHRISTIAN CARBALLO Omeprazole 20 MG Oral Capsule Delayed Rele*180 Ca*1 Sig: Take 1 Capsule by mouth in the morning and 1 Capsule before bedtime. Authorizing Provider: CHRISTIAN CARBALLO * Telephone Encounter - Melissa Aeljandre LPN - 02/05/2024 4:07 PM EDTPending Prescriptions: Disp Refills Amitriptyline HCl 25 MG Oral Tablet (Elavi*90 Tab*3 Sig: TAKE 1 TABLET BY MOUTH BEFORE BEDTIME Omeprazole 20 MG Oral Capsule Delayed Rele*180 Ca*1 Sig: Take 1 Capsule by mouth in the morning and 1 Capsule before bedtime. * Telephone Encounter - Melissa Alejandre LPN - 02/05/2024 4:07 PM EDT Pending Prescriptions: Disp Refills Amitriptyline HCl 25 MG Oral Tablet (Elav*90 Tab*3 Sig: TAKE 1 TABLET BY MOUTH BEFORE BEDTIME Omeprazole 20 MG Oral Capsule Delayed Rel*180 Ca*1 Sig: Take 1 Capsule by mouth in the morning and 1 Capsule before bedtime. Last Visit: 06/10/2023 (in office), 08/27/2023 (telemedicine) Next Visit: 05/05/2024 Last date the medication was ordered: and 08/24/2023 Patient Active Problem List Diagnosis Code Type 2 diabetes mellitus with hemoglobin A1c goal of less than 7.0% ([facility]) E11.9 Gouty arthropathy M10.9 DYSLIPIDEMIA, GOAL LDL BELOW 100 E78.5 Asthma, mild persistent J45.30 Hypertriglyceridemia E78.1 HTN, goal below 140/90 I10 Nephrolithiasis N20.0 Hypothyroidism E03.9 Low HDL (under 40) E78.6 Type 2 diabetes mellitus with hyperglycemia, with long-term current use of insulin ([facility]) E11.65, Z79.4 Open-angle glaucoma H40.10X0 Mucous retention cyst of maxillary sinus J34.1 Restless legs syndrome (RLS) G25.81 Gastro-esophageal reflux disease without esophagitis K21.9 PORTIA on CPAP G47.33 Chronic kidney disease, stage 3a ([facility]) N18.31 Labs: Lab Results Component Value Date/Time CREATININE - [facility] 1.3 (H) 11/04/2023 08:27 AM CREATININE - [facility] 1.0 09/03/2019 01:25 PM CREATININE, RANDOM URINE - [facility] 64 01/11/2023 08:29 AM CREATININE, RANDOM URINE - [facility] 76 02/26/2019 09:07 AM CREATININE-OUTSIDE LAB 1.6 (A) 06/21/2013 12:00 AM Lab Results Component Value Date/Time POTASSIUM - [facility] 5.0 11/04/2023 08:27 AM POTASSIUM - [facility] 5.0 09/03/2019 01:25 PM Lab Results Component Value Date/Time TSH - [facility] 4.64 (H) 01/11/2023 08:29 AM TSH - [facility] 2.90 09/03/2019 01:25 PM Lab Results Component Value Date/Time LDL CHOLESTEROL (CALCULATED) - [facility] 43 09/25/2018 09:21 AM LDL CHOLESTEROL (CALCULATED) - [facility] 9 03/06/2018 07:59 AM LDL CHOLESTEROL (DIRECT MEASURE) - [facility] 64 01/11/2023 08:29 AM LDL CHOLESTEROL (DIRECT MEASURE) - [facility] 50 12/08/2021 09:47 AM LDL CHOLESTEROL (DIRECT MEASURE) - [facility] 39 09/03/2019 01:25 PM LDL CHOLESTEROL (DIRECT MEASURE) - [facility] NOT APPLICABLE 09/25/2018 09:21 AM LDL CHOLESTEROL (DIRECT MEASURE) - [facility] 98 01/08/2011 11:50 AM Lab Results Component Value Date/Time ALT - [facility] 20 01/11/2023 08:29 AM ALT - [facility] 32 09/03/2019 01:25 PM Hemoglobin AIC Results: Lab Results Component Value Date/Time HEMOGLOBIN A1C - [facility] 8.4 (H) 11/04/2023 08:27 AM HEMOGLOBIN A1C - [facility] 8.1 (H) 01/11/2023 08:29 AM HEMOGLOBIN A1C - [facility] 7.5 (H) 05/04/2022 08:36 AM HEMOGLOBIN A1C - [facility] 13.3 (H) 09/03/2019 01:25 PM HEMOGLOBIN A1C - [facility] 12.8 (H) 02/26/2019 09:07 AM HEMOGLOBIN A1C - [facility] 12.8 (H) 09/25/2018 09:21 AM * Telephone Encounter - Richa Sinclair OSA - 02/05/2024 3:59 PM EDT Did you pend patient's preferred pharmacy and medication before forwarding?yes Pharmacy: [facility] [address] Pending Prescriptions: Disp Refills Amitriptyline HCl 25 MG Oral Tablet (Elav*90 Tab*3 Sig: TAKE 1 TABLET BY MOUTH BEFORE BEDTIME Omeprazole 20 MG Oral Capsule Delayed Rel*180 Ca*1 Sig: Take 1 Capsule by mouth in the morning and 1 Capsule before bedtime. Last Visit: 06/10/2023 (in office), 08/27/2023 (telemedicine) Next Visit: 05/05/2024 If no future appointments scheduled, and last appointment is greater than a year ago, please schedule patient for a follow-up appointment Last date the medication was ordered: 03.05.2023 Is this request for a controlled substance?No [...] 4:20 PM EDT Office Visit Family Medicine [address] [place] [phone] Christian Carballo MD [address] [place] [address] [place] [address] Health Maintenance Due Date Last Done Comments HIV Screening 1979 Colonoscopy 2009 Sigmoidoscopy 2009 Zoster Vaccines (1 of 2) 2014 CKD PHOS USE SMARTSET 49577 01/22/2017 04/0 01/2016, 07/26/2015, 02/25/2015, Additional history exists Fecal Occult Blood Test 04/18/2018 04/18/2017, 11/27 Depression Screening 02/06/2023 02/06/2022 Albumin/Creatinine Ratio 01/12/2024 023, 12/08/2021, 11/23/2020, Additional history exists CKD HGB USE SMARTSET 42985 01/12/202401/11, 01/11/2023, 12/08/2021, Additional history exists TSH [...] as of this encounter Visit Diagnoses Diagnosis Gastro-esophageal reflux disease without esophagitis Esophageal reflux documented in this encounter Care Teams Fine Artist Relationship Specialty Start Date End Date Christian Carballo MD [address] [place] [address] [place] [address] PCP - General Family Medicine 07/12/22 documented as of this encounter
--- OUTSIDE RECORDS SUMMARY | 2024-06-08 23:21 | External Medical Summary | Summary of Care ---
Author Name Unknown Organization [facility] Address [address] [place] [address] Phone [phone] Care Team Providers Care Meal Cook Name Role Phone Christian Carballo MD Primary Care Provide r Reason for Visit * Reason Comments eRx-Medication Refill Encounter Details Date Type Department Care Team (Late st Contact Info) Description 04/17/2024 Refill Family Medicine [address] [phone] Christian Carballo MD [address] [place] [address] Encounter for long-term (current) use of other medications*; Acquired hypothyroidism; Dyslipidemia, goal LDL below 100; Type 2 diabetes mellitus with hyperglycemia, with long-term current use of insulin (HCC) Allergies Active Allergy Reactions Criticality Noted Date Comments Bee Venom High 07/01/2017 Demerol Rash 03/01/2014 Lisinopril 03/07/2018 hyperkalemia Meperidine 01/26/2021 Other reaction(s): rash Meperidine Hcl High 03/29/2021 Penicillin G High 09/16/2001 Penicillins 01/03/2004 Other reaction(s): Other (See Comments) "Extremity stiffness" documented as of this encounter (statuses as of 04/18/2024) Medications Medication Sig Dispensed Refills Start Date End Date Status Blood Glucose Monitoring Suppl ([employer] VERIO) w/Device KIT Use up to 4 times a day E11.9 1 Kit 9 Active Aspirin EC 81 MG Oral Tablet Delayed ReleaseIndications:T ype 2 diabetes mellitus with hemoglobin A1c goal of less than 8.0% ([facility]) Take 1 Tab by mouth daily. 100 Tab 3 1 Active OneTouch Delica Plus [id number] :Type 2 diabetes mellitus with hyperglycemia, with [...] A1c goal of less than 7.0% ([facility]),Type 2 diabetes mellitus with hyperglycemia, with long-term current use of insulin ([facility]) Inject 3 mg under the skin once a week. 2 mL 5 4 Active metFORMIN HCl 1000 MG Oral Tablet (Glucophage)Indicati ons:Type 2 diabetes mellitus with hyperglycemia, with long-term current use of insulin ([facility]) TAKE 1 TABLET BY MOUTH TWICE A DAY WITH BREAKFAST AND DINNER 180 Tablet 4 Active Ronnie Ayala In Vitro Strip (Glucose Blood)Indications:Ty pe 2 [...] AND BEFORE BEDTIME 60 Tablet 4 Active Levothyroxine Sodium 25 MCG Oral Tablet (Levoxyl)Indications :Acquired hypothyroidism TAKE 1 TABLET BY MOUTH AT LEAST 30 MINUTES PRIOR TO BREAKFAST OR OTHER MEDS 30 Tablet 4 Active Atorvastatin Calcium 20 MG Oral Tablet (Lipitor)Indications :Dyslipidemia, goal LDL below 100 TAKE 1 TABLET BY MOUTH AT BEDTIME 30 Tablet 4 Active Jardiance 25 MG Oral Tablet (Empagliflozin)Indic ations:Type 2 diabetes mellitus with hyperglycemia, with long-term current use of insulin ([facility]) TAKE 1 TABLET BY MOUTH ONCE DAILY 30 Tablet 4 Active Jardiance 25 MG Oral Tablet (Empagliflozin)Indic ations:Type 2 diabetes mellitus with hyperglycemia, with long-term current use of insulin ([facility]) TAKE 1 TABLET BY MOUTH ONCE DAILY 90 Tablet 4 04/17/20 24 Discontinued Lipitor 20 MG Oral Tablet (atorvaSTATin)Indica tions:Dyslipidemia, goal LDL below 100 TAKE 1 TABLET BY MOUTH AT BEDTIME 90 Tablet 4 04/17/20 24 Discontinued Euthyrox 25 MCG Oral Tablet (levothyroxine)Indic ations:Acquired hypothyroidism TAKE 1 TABLET BY MOUTH AT LEAST 30 MINUTES PRIOR TO BREAKFAST OR OTHER MEDS 90 Tablet 4 04/17/20 24 Discontinued documented as of this encounter (statuses as of 04/18/2024) Active Problems Problem Noted Date Diagnosed Date [...] as of this encounter (statuses as of 04/18/2024) Resolved Problems Problem Noted Date Diagnosed Date [...] as of this encounter (statuses as of 04/18/2024) Immunizations Name Administration Dates Next Due COVID-19 mRNA, LNP-s, No Pre serve, 2-Dose Series (Moderna) 09/26/2021,03/15/2021,02/08/2021 COVID-19, MRNA-LNP, 23-24, P F, 50 MCG/0.5 mL, 12 YRS AND ABOVE, IM (MODERNA-Spikevax) 11/22/2023 Covid-19, Mrna, Lnp-s, Pf, B ivalent, 50 Mcg, IM, 12 yrs and above (Moderna) 11/02/2022 Hepatitis B, 20+ yrs 09/04/1999,04/04/1999,03/04 PPD 04/15/2017,09/21/2011,12/02/2006 Pneumococcal Conjugate Vacci ne, 20-valent ([id number]) 01/14/2023 Pneumococcal Polysaccharide PPV23 (Pneumovax) 09/23/2006 Season [...] encounter Miscellaneous Notes * Telephone Encounter - Ilda Morales welfare supervisor - 04/18/2024 9:13 AM EDT Received message from [facility] regarding patient needing labs. Call Placed, Left message on TMSil advising of required labs Thank you for your assistance Ilda Morales [employer] [facility] 04/18/2024,9:13 AM * Telephone Encounter - Nancy Brian [facility] - 04/17/2024 2:38 PM EDTSigned Prescriptions: Disp Refills Levothyroxine Sodium 25 MCG Oral Tablet (L*30 Tab*0 Sig: TAKE 1 TABLET BY MOUTH AT LEAST 30 MINUTES PRIOR TO BREAKFAST OR OTHER MEDS Authorizing Provider: CHRISTIAN CARBALLO Ordering User: NANCY BRIAN Atorvastatin Calcium 20 MG Oral Tablet (Li*30 Tab*0 Sig: TAKE 1 TABLET BY MOUTH AT BEDTIME Authorizing Provider: CHRISTIAN HELTON Ordering User: NANCY BRIAN Jardiance 25 MG Oral Tablet (Empagliflozin)30 Tab*0 Sig: TAKE 1 TABLET BY MOUTH ONCE DAILY Authorizing Provider: CHRISTIAN CARBALLO Ordering User: NANCY BRIAN * Telephone Encounter - Nancy Brian [facility] - 04/17/2024 2:33 PM EDT Provided 30 days supply with 0 refill(s) until upcoming appointment. Per refill protocol patient should have tsh, lipid panel, A1c, a/c ratio on file within past year. Reviewed AMP report, Care Gaps/Health Maintenance, medications list, and for any routine labs typically ordered for this patient. Lab orders placed. Please contact patient to advise of labs ordered for blood draw AND URINE specimen (patient will have to be able to void to provide sample). Recommend patient to fast if able for labs. Patient may still have water and regular medications. Advise to obtain labs before requesting the next refill. Thank you, Nancy Brian, PharmD Clinical Pharmacist [facility] 04/17/24 2:33 PM [phone] documented in this encounter Plan of Treatment Upcoming Encounters Date Type Department Care Team (Late st Contact Info) Description 05/05/2024 4:20 PM EDT Office Visit Family Medicine [address] [phone] Christian Carballo MD [address] [place] [address] [place] [phone] Scheduled Orders Name Type Priority Associated Diagnoses Orde r Schedule HEMOGLOBIN A1C Lab Routine Type 2 diabetes mellitus with hyperglycemia, with long-term current use of insulin (HCC) Expected: 04/24/2024 (Approximate), Expires: 04/17/2025 ALBUMIN / CREATININE RATIO, URINE Lab Routine Type 2 diabetes mellitus with hyperglycemia, with long-term current use of insulin (HCC) Expected: 04/17/2024, Expires: 04/17/2025 MAGNESIUM Lab Routine Encounter for long-term (current) use of other medications Expected: 04/24/2024 (Approximate), Expires: 04/17/2025 Health Maintenance Due Date Last Done Comments HIV Screening 1979 Colonoscopy 2009 Sigmoidoscopy 2009 Zoster Vaccines (1 of 2) 2014 CKD PHOS USE SMARTSET 68182 01/22/2017 04/0 01/2016, 07/26/2015, 02/25/2015, Additional history exists Fecal Occult Blood Test 04/18/2018 04/18/2017, 11/27 Depression Screening 02/06/2023 02/06/2022 Albumin/Creatinine Ratio 01/12/2024 023, 12/08/2021, 11/23/2020, Additional history exists CKD HGB USE SMARTSET 25621 01/12/202401/11, 01/11/2023, 12/08/2021, Additional history exists TSH [...] Diagnosis Encounter for long-term (current) use of other medications- Primary Acquired hypothyroidism Unspecified hypothyroidism Dyslipidemia, goal LDL below 100 Other and unspecified hyperlipidemia Type 2 diabetes mellitus with hyperglycemia, with long-term current use of insulin (HCC) documented in this encounter Care Teams Meal Cook Relationship Specialty Start Date End Date Christian Carballo MD [address] [place] [address] [place] [address] PCP - General Family Medicine 07/12/22 documented as of this encounter
--- OUTSIDE RECORDS SUMMARY | 2024-06-08 23:21 | External Medical Summary | Summary of Care ---
Author Name Unknown Organization [facility] Address [address] [place] [address] Phone [phone] Care Team Providers Care Aging Room Hand Name Role Phone Christian Najera MD Primary Care Provide r Reason for Visit * Reason Comments eRx-Medication Refill Encounter Details Date Type Department Care Team (Late st Contact Info) Description 01/31/2024 Refill Family Medicine [address] [address] Christian Najera MD [address] [place] [address] Gouty arthropathy; Type 2 diabetes mellitus with hyperglycemia, with long-term current use of insulin ([facility]); Mild persistent asthma without complication; [...] as of this encounter (statuses as of 02/04/2024) Medications Medication Sig Dispensed Refills Start Date End Date Status Blood Glucose Monitoring Suppl (American Board of Addiction Medicine (ABAM)) w/Device KIT Use up to 4 times a day E11.9 1 Kit 0 9 Active Aspirin EC 81 MG Oral Tablet Delayed ReleaseIndications: Type 2 diabetes mellitus with hemoglobin A1c goal of less than 8.0% ([facility]) Take 1 Tab by mouth daily. 100 Tab 3 1 Active OneTouch Delica Plus [id number] s:Type 2 diabetes mellitus with hyperglycemia, with long-term current use of insulin ([facility]) Use to test blood sugar [...] goal of less than 7.0% ([facility]),Type 2 diabetes mellitus with hyperglycemia, with long-term current use of insulin ([facility]) Inject 3 mg under the skin once a week. 2 mL 5 4 Active metFORMIN HCl 1000 MG Oral Tablet (Glucophage)Indicat ions:Type 2 diabetes mellitus with hyperglycemia, with long-term current use of insulin ([facility]) TAKE 1 TABLET BY MOUTH TWICE A DAY WITH BREAKFAST AND DINNER 180 Tablet 0 4 Active OneTouch Verio In Vitro Strip (Glucose Blood)Indications:T ype 2 diabetes mellitus with hyperglycemia, with long-term current use of insulin ([facility]) USE TO TEST BLOOD SUGAR TWICE A DAY. DX E11.9 200 Strip 3 4 Active Zyloprim 100 MG Oral Tablet (Allopurinol)Indica tions:Gouty arthropathy TAKE 1 TABLET BY MOUTH ONCE DAILY 90 Tablet 1 4 Active Jardiance 25 MG Oral Tablet (Empagliflozin)Bridget cations:Type 2 diabetes mellitus with hyperglycemia, with long-term current use of insulin ([facility]) TAKE 1 TABLET BY MOUTH [...] Capsule 1 3 024 Discontinued(Me dication/Dose Changed) Topiramate 50 MG Oral Tablet (topAMAX)Indication s:Chronic migraine without aura without status migrainosus, not intractable TAKE 1 TABLET BY MOUTH IN THE MORNING AND BEFORE BEDTIME 180 Tablet 1 3 024 Discontinued Montelukast Sodium 10 MG Oral Tablet (Singulair)Indicati [...] as of this encounter (statuses as of 02/04/2024) Active Problems Problem Noted Date Diagnosed Date [...] as of this encounter (statuses as of 02/04/2024) Resolved Problems Problem Noted Date Diagnosed Date [...] as of this encounter (statuses as of 02/04/2024) Immunizations Name Administration Dates Next Due COVID-19 [...] 04/15/2017, 1,12/02/2006,04/13,04/09/2002,03/26/2002 Pneumococcal Conjugate Vacci ne, 20-valent ([id number]) 01/14/2023 Pneumococcal Polysaccharide PPV23 (Pneumovax) 09/23/2006 Season [...] 2:03 PM EDT Sexual Orientation Straight 04/24/2022 2 :03 PM EDT Job Start Date Occupation Industry Not on file Not on file Not on file documented as of this encounter Miscellaneous Notes * Telephone Encounter - Ele Ahmadi CPhT - 02/04/2024 3:49 PM EDT Pharmacy calling to verify fenofibrate 200mg was dc'd- informed it was as of 02/03/24 Thank you, Ele Ahmadi CPhT [employer] [facility] ([facility]) (Formerly Telepharmacy) 02/04/2024, 3:49 PM * Telephone Encounter - Deborah Pérez PHARM Tech - 02/03/2024 11:57 AM EDT Received message from [facility] regarding patient needing labs. Call Placed, Left message on voicemail advising of required labs Also. As per [facility] "LVM asking patient to call back to inform her of fenofibrate dose change. If patient returns call please transfer to next available pharmacist." Thank you, Deborah Pérez CPhT [employer] II [facility] ([facility]) (formerly Telepharmacy) 02/03/2024,11:57 AM * Telephone Encounter - Jhon Martines, [facility] - 02/03/2024 11:49 AM EDT Signed Prescriptions: [...] MOUTHBEFORE BEDTIMEAuthorizing Provider: CHRISTIAN NAJERA User: JHON MARTNIES Euthyrox 25 MCG Oral Tablet (levothyroxine)90 Tab*0 [...] cation * Telephone Encounter - Jhon Martines [facility] - 02/03/2024 11:47 AM EDT LVM asking patient to call back to inform her of fenofibrate dose change. If patient returns call please transfer to next available pharmacist. Thank you, Jhon Martines PharmD Clinical Pharmacist [facility] ([facility]) 02/03/24 11:48 AM [phone] * Telephone Encounter - Christian Najera MD - 02/03/2024 11:39 AM EDT OK * Telephone Encounter - Jhon Martines [facility] - 02/03/2024 11:14 AM EDT PCP: Unable to authorize medication refills for pended medication(s) at this time. Patient's creatinine clearance is too low. Serum creatinine: 1.3 mg/dL (H) 11/04/23 0827 Estimated creatinine clearance: 49.4 mL/min (A) Per [...] Clinical Pharmacy Services ([facility]) 02/03/24 11:18 AM [phone] * Telephone Encounter - Jhon Martines RP - 02/03/2024 11:11 AM EDT Outbound: Provided [...] requesting the next refill. Thank you, Jhon Martines, PharmD Clinical Pharmacist [facility] ([facility]) 02/03/24 11:14 AM [phone] documented in this encounter Plan of Treatment Upcoming Encounters Date Type Department Care Team (Late st Contact Info) Description 05/05/2024 4:20 PM EDT Office Visit [address] [phone] Christian Najera MD [address] [place] [address] [place] [id number] Scheduled Orders Name Type Priority Associated Diagnoses Orde r Schedule TSH WITH FREE T4 IF INDICATED Lab Routine Acquired hypothyroidism Expected: 02/03/2024 (Approximate), Expires: 02/02/2025 Health Maintenance Due Date Last Done Comments HIV Screening 1979 Colonoscopy 2009 Sigmoidoscopy 2009 Zoster Vaccines (1 of 2) 2014 CKD PHOS USE SMARTSET 99223 01/22/2017 04/0 01/2016, 07/26/2015, 02/25/2015, Additional history exists Fecal Occult Blood Test 04/18/2018 04/18/2017, 11/27 Depression Screening 02/06/2023 02/06/2022 Albumin/Creatinine Ratio 01/12/2024 023, 12/08/2021, 11/23/2020, Additional history exists CKD HGB USE SMARTSET 91515 01/12/202401/11, 01/11/2023, 12/08/2021, Additional history exists TSH [...] hypothyroidism documented in this encounter Care Teams Aging Room Hand Relationship Specialty Start Date End Date Christian Najera MD [address] [place] [address] [place] [phone] PCP - General Family Medicine 07/12/22 documented as of this encounter
--- OUTSIDE RECORDS SUMMARY | 2024-06-08 23:21 | External Medical Summary | Summary of Care ---
Author Name Unknown Organization [facility] Address [address] [place] [address] Phone [phone] Care Team Providers Care Metal Fabricator Name Role Phone Christian Carballo MD Primary Care Provide r Reason for Visit * Reason Comments eRx-Medication Refill Encounter Details Date Type Department Care Team (Late st Contact Info) Description 01/11/2024 Refill Family Medicine [address] [phone] Christian Carballo MD [address] [place] [address] Encounter for long-term (current) use of [...] as of this encounter (statuses as of 01/13/2024) Medications Medication Sig Dispensed Refills Start Date End Date Status Blood Glucose Monitoring Suppl ([employer] VERIO) w/Device KIT Use up to 4 times a day E11.9 1 Kit 0 9 Active Aspirin EC 81 MG Oral Tablet Delayed ReleaseIndications:T ype 2 diabetes mellitus with hemoglobin A1c goal of less than 8.0% ([facility]) Take 1 Tab by mouth daily. 100 Tab 3 1 Active OneTouch Delica Plus [id number] :Type 2 diabetes mellitus with hyperglycemia, with long-term current use of insulin ([facility]) Use to test blood sugar TWICE a day dxE11.9 200 Each 3 2 Active Brimonidine Tartrate 0.2 % Ophthalmic Solution (Alphagan) INSTILL 1 DROP BY OPHTHALMIC ROUTE 2 TIMES EVERY DAY OK FOR 90 DAY SUPPLY. 0 2 Active OneTouch Verio In Vitro Strip (Glucose Blood)Indications:Ty pe 2 diabetes mellitus with hyperglycemia, with long-term current use of insulin ([facility]) USE TO TEST BLOOD SUGAR TWICE [...] long-term current use of insulin ([facility]) TAKE 1 TABLET BY MOUTH EVERY [...] long-term current use of insulin ([facility]) Inject 3 mg under the skin [...] as of this encounter (statuses as of 01/13/2024) Active Problems Problem Noted Date Diagnosed Date [...] as of this encounter (statuses as of 01/13/2024) Resolved Problems Problem Noted Date Diagnosed Date [...] as of this encounter (statuses as of 01/13/2024) Immunizations Name Administration Dates Next Due COVID-19 mRNA, LNP-s, No Pre serve, 2-Dose Series (Moderna) 09/26/2021,03/15/2021,02/08/2021 COVID-19, MRNA-LNP, 23-24, P F, 50 MCG/0.5 mL, 12 YRS AND ABOVE, IM (MODERNA-Spikevax) 11/22/2023 Covid-19, Mrna, Lnp-s, Pf, B ivalent, 50 Mcg, IM, 12 yrs and above (Moderna) 11/02/2022 Hepatitis B, 20+ yrs 09/04/1999,04/04/1999,03/04 PPD 04/15/2017,09/21/2011,12/02/2006 Pneumococcal Conjugate Vacci ne, 20-valent ([id number]) 01/14/2023 Pneumococcal Polysaccharide PPV23 (Pneumovax) 09/23/2006 Season [...] encounter Miscellaneous Notes * Telephone Encounter - Moncho Nance, [facility] - 01/13/2024 7:28 AM EDTSigned Prescriptions: Disp Refills metFORMIN HCl 1000 MG Oral Tablet (Glucoph*180 Ta*0 Sig: TAKE 1 TABLET BY MOUTH TWICE A DAY WITH BREAKFAST AND DINNERAuthorizing Provider: CHRISTIAN CARBALLO User: MONCHO GOODMAN * Telephone Encounter - Moncho Nance [facility] - 01/13/2024 7:27 AM EDT Provided [...] her scheduled office visit 05/05/2024. Thank You, Moncho Goodman [facility] Clinical Pharmacist Centralized Clinical Pharmacy Services ([facility]) (formerly Telepharmacy) 01/13/2024, 7:27 AM * Telephone Encounter - Moncho Nance [facility] - 01/13/2024 7:25 AM EDT Pending [...] date the medication was ordered: 11/07/23 Pharmacy: [id number] [address] [facility] Is this request for a controlled [...] 4:20 PM EDT Office Visit Family Medicine [address] [place] [phone] Christian Carballo MD [address] [place] [address] [place] [address] Scheduled Orders Name Type [...] 01/21/2020, Additional history exists Mammogram 04/09/2024 04/09/2023, 0204/2022, [...] (HCC) documented in this encounter Care Teams Metal Fabricator Relationship Specialty Start Date End Date Christian Carballo MD [address] [place] [address] [place] [phone] PCP - General Family Medicine 07/12/22 documented as of this encounter
--- OUTSIDE RECORDS SUMMARY | 2024-06-08 23:21 | External Medical Summary | Summary of Care ---
Author Name Unknown Organization [facility] [address] [facility] [address] Phone [phone] Care Team Providers Care International Trade Manager Name Role Phone Sarbjit Carballo MD Primary Care Provide r Reason for Visit * Reason Comments eRx-Medication Refill Encounter Details Date Type Department Care Team (Late st Contact Info) Description 01/31/2024 Refill Neurology, [place] [facility] [place] [address] She Agosto PA-C [address] [facility] [place] [address] Chronic migraine without aura without status migrainosus, [...] End Date Status Blood Glucose Monitoring Suppl ([employer] VERIO) w/Device KIT Use up to 4 times a day E11.9 1 Kit 0 9 Active Aspirin EC 81 MG Oral Tablet Delayed ReleaseIndications:T ype 2 diabetes mellitus with hemoglobin A1c goal of less than 8.0% ([facility]) Take 1 Tab by mouth daily. 100 Tab 3 1 Active OneTouch Delica Plus [id number] :Type 2 diabetes mellitus with hyperglycemia, with [...] OTHER MEDS 90 Tablet 0 4 Active Topamax 50 MG Oral Tablet (Topiramate)Indicati ons:Chronic migraine without aura without status migrainosus, not intractable TAKE 1 TABLET BY MOUTH EVERY MORNING AND BEFORE BEDTIME 60 Tablet 1 4 Active Fenofibrate Micronized 67 MG Oral Capsule Take 1 Capsule by mouth daily. 90 Capsule 0 4 Active Topiramate 50 MG Oral Tablet (topAMAX)Indications :Chronic migraine without aura without status migrainosus, not intractable TAKE 1 TABLET BY MOUTH IN THE MORNING AND BEFORE BEDTIME 180 Tablet 1 3 02/04/20 24 Discontinued documented as of this encounter [...] PPD 04/15/2017,09/21/2011,12/02/2006 Pneumococcal Conjugate Vacci ne, 20-valent ([id number]) 01/14/2023 Pneumococcal Polysaccharide PPV23 (Pneumovax) 09/23/2006 Season [...] Telephone Encounter - Silviano Franklin DO - 02/04/2024 1:21 PM EDT Signed Prescriptions: Disp Refills Topamax 50 MG Oral Tablet (Topiramate) 60 Tab*1 Sig: TAKE 1 TABLET BY MOUTH EVERY MORNING AND BEFORE BEDTIME Authorizing Provider: SILVIANO FRANKLIN * Telephone Encounter - Shannon Chamberlain LPN - 02/04/2024 1:12 PM EDTPending Prescriptions: Disp Refills Topamax 50 MG Oral Tablet [Pharmacy Med Na*60 Tab*1 Sig: TAKE 1 TABLET BY MOUTH EVERY MORNING AND BEFORE BEDTIME * Telephone Encounter - Deborah Pérez doctor of pharmacy - 02/04/2024 1:06 PM EDTPending Prescriptions: Disp Refills Topamax 50 MG Oral Tablet [Pharmacy Med Na*60 Tab*1 Sig: TAKE 1 TABLET BY MOUTH EVERY MORNING AND BEFORE BEDTIME * Telephone Encounter - Deborah Pérez doctor of pharmacy - 02/04/2024 1:05 PM EDT Received message from [facility] regarding patient needing appointment. Call Placed, Left message on voicemail to call back and schedule appointment. Thank you, Deborah Pérez [facility] Rn Endoscopy II [facility] ([facility]) (formerly Telepharmacy) 02/04/2024,1:05 PM * Telephone Encounter - Jhon Wesley [facility] - 02/03/2024 3:33 PM EDTPending Prescriptions: Disp Refills Topamax 50 MG Oral Tablet [Pharmacy Med Na*60 Tab*1 Sig: TAKE 1 TABLET BY MOUTH EVERY MORNING AND BEFORE BEDTIME * Telephone Encounter - Jhon Wesley RPh - 02/03/2024 3:14 PM EDT Please contact patient so that an appointment can be scheduled with her NEUROLOGY provider before this refill can be authorized. After contacting patient, please forward request to [place] [phone]. Last Visit: Visit date not found (in office), Visit date not found (telemedicine) Next Visit: Visit date not found Abdulkadir Pitt, PharmD Clinical Pharmacist [facility] ([facility]) (Formerly Telepharmacy) [phone] 02/03/2024 3:32 PM documented in this encounter Plan of Treatment Upcoming Encounters Date Type Department Care Team (Late st Contact Info) Description 05/05/2024 4:20 PM EDT Office Visit Family Medicine [address] [phone] Sarbjit Carballo MD [address] [place] [address] [place] [address] Health Maintenance Due Date Last Done Comments HIV Screening 1979 Colonoscopy 2009 Sigmoidoscopy 2009 Zoster Vaccines (1 of 2) 2014 CKD PHOS USE SMARTSET 70166 01/22/2017 04/0 01/2016, 07/26/2015, 02/25/2015, Additional history exists Fecal Occult Blood Test 04/18/2018 04/18/2017, 11/27 Depression Screening 02/06/2023 02/06/2022 Albumin/Creatinine Ratio 01/12/2024 023, 12/08/2021, 11/23/2020, Additional history exists CKD HGB USE SMARTSET 47160 01/12/202401/11, 01/11/2023, 12/08/2021, Additional history exists TSH 01/12/2024 01/11/2023, 11/21, 11/23/2020, Additional history exists Diabetic Foot Exam 01/15/2024 01/14/2023, 0 12/12/2021, 11/23/2020, Additional history exists Diabetic Eye Exam 01/26/2024 01/25/2023, , 01/21/2020, Additional history exists Mammogram 04/09/2024 04/09/2023, 0 04/2022, 11/25/2020, Additional history exists GFR 05/04/2024 [...] migrainosus documented in this encounter Care Teams International Trade Manager Relationship Specialty Start Date End Date Sarbjit Carballo MD [address] [place] [address] [place] [phone] PCP - General Family Medicine 07/12/22 documented as of this encounter
--- OUTSIDE RECORDS SUMMARY | 2024-06-08 23:21 | External Medical Summary | Summary of Care ---
Author Name Unknown Organization [facility] Address [address] [facility] [place] [address] Phone [phone] Care Team Providers Care Hospice Consultant Name Role Phone Sarbjit Carballo MD Primary Care Provide r Encounter Details Date Type Department Care Team (Late st Contact Info) Description 01/16/2024 Orders Only PATIENT PORTAL DO NOT DELETE THIS DEPT USED BY [place] [id number] Allergies Active Allergy Reactions Criticality Noted Date Comments Bee Venom High 07/01/2017 Demerol Rash 03/01/2014 Lisinopril 03/07/2018 hyperkalemia Meperidine 01/26/2021 Other reaction(s): rash Meperidine Hcl High 03/29/2021 Penicillin G High 09/16/2001 Penicillins 01/03/2004 Other reaction(s): Other (See Comments) "Extremity stiffness" documented as of this encounter (statuses as of 01/16/2024) Medications Medication Sig Dispensed Refills Start Date [...] Tab 3 11/08/2020 Active OneTouch Delica Plus [id number]: Type 2 diabetes mellitus with hyperglycemia, with long-term current use of insulin ([facility]) Use to test blood sugar TWICE a day dxE11.9 200 Each 3 12/25/2021 Active Brimonidine Tartrate 0.2 % Ophthalmic Solution (Alphagan) INSTILL 1 DROP BY OPHTHALMIC ROUTE 2 TIMES EVERY DAY OK FOR 90 DAY SUPPLY. 0 05/26/2022 Active OneTouch Verio In Vitro Strip (Glucose Blood)Indications:Typ e 2 diabetes mellitus with hyperglycemia, with long-term current use of insulin ([facility]) USE TO TEST BLOOD SUGAR TWICE A DAY. DX E11.9 200 Strip 3 12/17/2022 Active Triamcinolone Acetonide 0.1 % External Cream (Aristocort)Indicatio ns:Heat rash APPLY TO THE AFFECTED AREA TOPICALLY TWO TIMES A DAY 80 g 2 01/14/2023 Active Allopurinol 100 MG Oral Tablet (Zyloprim)Indications :Gouty arthropathy TAKE 1 TABLET BY MOUTH EVERY DAY 90 Tablet 3 03/04/2023 Active Amitriptyline HCl 25 MG Oral Tablet (Elavil) TAKE 1 TABLET BY MOUTH BEFORE BEDTIME 90 Tablet 3 03/05/2023 Active Levocetirizine Dihydrochloride 5 MG Oral TabletIndications:Pos t-nasal drainage TAKE 1/2 TABLET BY MOUTH BEFORE BEDTIME 45 Tablet 2 04/29/2023 Active Atorvastatin Calcium 20 MG Oral Tablet (Lipitor)Indications: Dyslipidemia, goal LDL below 100 TAKE 1 TABLET BY MOUTH EVERYDAY AT BEDTIME 90 Tablet 2 04/29/2023 Active Levothyroxine Sodium 25 MCG Oral Tablet (Levoxyl)Indications: Acquired hypothyroidism TAKE 1 TABLET BY MOUTH AT LEAST 30 MINUTES PRIOR TO BREAKFEST OR OTHER MEDS 90 Tablet 2 04/29/2023 Active Levalbuterol Tartrate 45 MCG/ACT Inhalation Aerosol (Xopenex HFA) Inhale 1 Puff by mouth every 4 hours as needed for Wheezing. 15 g 11 05/23/2023 Active Fenofibrate Micronized 200 MG Oral CapsuleIndications:Hy pertriglyceridemia 1 tab by mouth daily 90 Capsule 1 07/16/2023 Active Topiramate 50 MG Oral Tablet (topAMAX)Indications: Chronic migraine without aura without status migrainosus, not intractable TAKE 1 TABLET BY MOUTH IN THE MORNING AND BEFORE BEDTIME 180 Tablet 1 08/07/2023 Active Montelukast Sodium 10 MG Oral Tablet (Singulair)Indication s:Mild persistent asthma without complication TAKE 1 TABLET BY MOUTH EVERY DAY 90 Tablet 1 08/08/2023 Active Jardiance 25 MG Oral Tablet (Empagliflozin)Indica tions:Type 2 diabetes mellitus with hyperglycemia, with long-term current use of insulin (HCC) TAKE 1 TABLET BY MOUTH EVERY DAY 90 Tablet 1 08/08/2023 Active Metoprolol Succinate ER 25 MG Oral [...] after use.. 12 g 5 08/13/2023 Active Omeprazole 20 MG Oral Capsule Delayed Release (PriLOSEC)Indications :Gastro-esophageal reflux disease without esophagitis Take 1 Capsule by mouth in the morning and 1 Capsule before bedtime. 180 Capsule 1 08/27/2023 Active CPAP every night at bedtime. 0 [...] AND DINNER 180 Tablet 0 01/13/2024 Active documented as of this encounter (statuses as of 01/16/2024) Active Problems Problem Noted Date Diagnosed Date [...] as of this encounter (statuses as of 01/16/2024) Resolved Problems Problem Noted Date Diagnosed Date [...] as of this encounter (statuses as of 01/16/2024) Immunizations Name Administration Dates Next Due COVID-19 mRNA, LNP-s, No Pre serve, 2-Dose Series (Moderna) 09/26/2021,03/15/2021,02/08/2021 COVID-19, MRNA-LNP, 23-24, P F, 50 MCG/0.5 mL, 12 YRS AND ABOVE, IM (MODERNA-Spikevax) 11/22/2023 Covid-19, Mrna, Lnp-s, Pf, B ivalent, 50 Mcg, IM, 12 yrs and above (Moderna) 11/02/2022 Hepatitis B, 20+ yrs 09/04/1999,04/04/1999,03/04 PPD 04/15/2017,09/21/2011,12/02/2006 Pneumococcal Conjugate Vacci ne, 20-valent ([id number]) 01/14/2023 Pneumococcal Polysaccharide PPV23 (Pneumovax) 09/23/2006 Season [...] 4:20 PM EDT Office Visit Family Medicine [address] [place] [address] Sarbjit Carabllo MD [address] [place] [address] [place] [address] Health Maintenance Due Date Last Done Comments [...] filedocumented as of this encounter Care Teams Hospice Consultant Relationship Specialty Start Date End Date Sarbjit Carballo MD [address] [place] [address] [place] [id number] PCP - General Family Medicine 07/12/22 documented as of this encounter
--- OUTSIDE RECORDS SUMMARY | 2024-06-08 23:22 | External Medical Summary | Summary of Care ---
Author Name Unknown Organization [facility] Address [address] [place] [address] Phone [phone] Care Team Providers Care Drafter Castings Name Role Phone Christian Carballo MD Primary Care Provide r Reason for Visit * Reason Onset Date Comments Medication Refill 12/17/2023 Encounter Details Date Type Department Care Team (Late st Contact Info) Description 12/17/2023 Refill Family Medicine [address] [id number] Christian Carballo MD [address] [place] [id number] Type 2 diabetes mellitus with hemoglobin A1c goal of less than 7.0% ([facility]); Type 2 diabetes mellitus with hyperglycemia, with long-term current use of insulin ([facility]) Allergies Active Allergy Reactions Criticality Noted Date Comments Bee Venom High 07/01/2017 Demerol Rash 03/01/2014 Lisinopril 03/07/2018 hyperkalemia Meperidine 01/26/2021 Other reaction(s): rash Meperidine Hcl High 03/29/2021 Penicillin G High 09/16/2001 Penicillins 01/03/2004 Other reaction(s): Other (See Comments) "Extremity stiffness" documented as of this encounter (statuses as of 12/18/2023) Medications Medication Sig Dispensed Refills Start Date End Date Status Blood Glucose Monitoring Suppl ([employer] VERIO) w/Device KIT Use up to 4 times a day E11.9 1 Kit 0 09/03/2019 Active Aspirin EC 81 MG Oral Tablet Delayed ReleaseIndications:T ype 2 diabetes mellitus with hemoglobin A1c goal of less than 8.0% (HCC) Take 1 Tab by mouth daily. 100 Tab 3 11/08/2020 Active OneTouch Delica Plus [id number] :Type 2 diabetes mellitus with hyperglycemia, with long-term current use of insulin ([facility]) Use to test blood sugar TWICE a day dxE11.9 200 Each 3 12/25/2021 Active Brimonidine Tartrate 0.2 % Ophthalmic Solution (Alphagan) INSTILL 1 DROP BY OPHTHALMIC ROUTE 2 TIMES EVERY DAY OK FOR 90 DAY SUPPLY. 0 05/26/2022 Active OneTouch Verio In Vitro Strip (Glucose Blood)Indications:Ty pe 2 diabetes mellitus with hyperglycemia, with long-term current use of insulin ([facility]) USE TO TEST BLOOD SUGAR TWICE A DAY. DX E11.9 200 Strip 3 12/17/2022 Active Triamcinolone Acetonide 0.1 % External Cream (Aristocort)Indicati ons:Heat rash APPLY TO THE AFFECTED AREA TOPICALLY TWO TIMES A DAY 80 g 2 01/14/2023 Active Allopurinol 100 MG Oral Tablet (Zyloprim)Indication s:Gouty arthropathy TAKE 1 TABLET BY MOUTH EVERY DAY 90 Tablet 3 03/04/2023 Active Amitriptyline HCl 25 MG Oral Tablet (Elavil) TAKE 1 TABLET BY MOUTH BEFORE BEDTIME 90 Tablet 3 03/05/2023 Active Levocetirizine Dihydrochloride 5 MG Oral TabletIndications:Po [...] 05/23/2023 Active Fenofibrate Micronized 200 MG Oral CapsuleIndications:H ypertriglyceridemia 1 tab by mouth daily 90 Capsule 1 07/16/2023 Active Topiramate 50 MG Oral Tablet (topAMAX)Indications :Chronic migraine without aura without status migrainosus, not intractable TAKE 1 TABLET BY MOUTH IN THE MORNING AND BEFORE BEDTIME 180 Tablet 1 08/07/2023 Active Montelukast Sodium 10 MG Oral Tablet (Singulair)Indicatio ns:Mild persistent asthma without complication TAKE 1 TABLET BY MOUTH EVERY DAY 90 Tablet 1 08/08/2023 Active Jardiance 25 MG Oral Tablet (Empagliflozin)Indic ations:Type 2 diabetes mellitus with hyperglycemia, with long-term current use of insulin ([facility]) TAKE 1 TABLET BY MOUTH EVERY [...] CPAP every night at bedtime. 0 Active metFORMIN HCl 1000 MG Oral Tablet (Glucophage)Indicati ons:Type 2 diabetes mellitus with hyperglycemia, with long-term current use of insulin ([facility]) TAKE 1 TABLET BY MOUTH TWICE A DAY WITH BREAKFAST AND DINNER 180 Tablet 3 11/07/2023 Active Trulicity 3 MG/0.5ML Subcutaneous Solution Pen-injector (Dulaglutide)Indicat ions:Type 2 diabetes mellitus with hemoglobin A1c goal of less than 7.0% (HCC),Type 2 diabetes mellitus with hyperglycemia, with long-term current use of insulin ([facility]) Inject 3 mg under the skin once a week. 2 mL 5 12/18/2023 Active Trulicity 3 MG/0.5ML Subcutaneous Solution Pen-injector (Dulaglutide)Indicat ions:Type 2 diabetes mellitus with hemoglobin A1c goal of less than 7.0% (HCC),Type 2 diabetes mellitus with hyperglycemia, with long-term current use of insulin ([facility]) Inject 3 mg under the skin once a week. 2 mL 5 08/14/2023 12/17/19 24 Discontinu ed(Refill) documented as of this encounter (statuses as of 12/18/2023) Active Problems Problem Noted Date Diagnosed Date [...] as of this encounter (statuses as of 12/18/2023) Resolved Problems Problem Noted Date Diagnosed Date [...] as of this encounter (statuses as of 12/18/2023) Immunizations Name Administration Dates Next Due COVID-19 mRNA, LNP-s, No Pre serve, 2-Dose Series (Moderna) 09/26/2021,03/15/2021,02/08/2021 COVID-19, MRNA-LNP, 23-24, P F, 50 MCG/0.5 mL, 12 YRS AND ABOVE, IM (MODERNA-Spikevax) 11/22/2023 Covid-19, Mrna, Lnp-s, Pf, B ivalent, 50 Mcg, IM, 12 yrs and above (Moderna) 11/02/2022 Hepatitis B, 20+ yrs 09/04/1999,04/04/1999,03/04 PPD 04/15/2017,09/21/2011,12/02/2006 Pneumococcal Conjugate Vacci ne, 20-valent (Comsvnq27) 01/14/2023 Pneumococcal Polysaccharide PPV23 (Pneumovax) 09/23/2006 Season [...] encounter Miscellaneous Notes * Telephone Encounter - Masood [facility] - 12/18/2023 10:34 AM ESTSigned Prescriptions: Disp Refills Trulicity 3 MG/0.5ML Subcutaneous Solution*2 mL 5 Sig: Inject 3 mg under the skin once a week.Authorizing Provider: CHRISTIAN CARBALLOOrderdory User: MASOOD PRESTON documented in this encounter Plan of Treatment Upcoming Encounters Date Type Department Care Team (Late st Contact Info) Description 05/05/2024 4:20 PM EDT Office Visit Family Medicine [address] [place] [phone] Christian Carballo MD [address] [place] [address] [place] [phone] Health Maintenance Due Date Last Done Comments [...] A1c goal of less than 7.0% (HCC) Type 2 diabetes mellitus with hyperglycemia, with long-term current use of insulin (HCC) documented in this encounter Care Teams Drafter Castings Relationship Specialty Start Date End Date Christian Carballo MD [address] [place] [address] [place] [id number] PCP - General Family Medicine 07/12/22 documented as of this encounter
--- NOTE | 2024-06-08 23:46 | History & Physical Report ---
Date of Service June 08, 2024 Assessment & Plan (1) Bilateral leg numbness: Plan: 59-year-old female with past medical history significant for type 2 diabetes, hyperlipidemia, hypothyroidism, asthma mild persistent, mucous retention cyst of maxillary sinus, obstructive sleep apnea on CPAP, hypertension, GERD, CKD stage III, gout, restless leg syndrome, open angle glaucoma comes because of ongoing waist down numbness and bilateral lower extremity weakness for about 10 days. Patient states since last 10 days waist down she is feeling very numb and also weakness in the lower extremities constantly . She is ambulating okay. Bowel movements ,she does not know they are coming and most of the times she was on the commode when she had a bowel movement but does not have any sensation of the movement. She is in diapers. Bladder movements ,she has urge to go but sometimes she has run to the bathroom. Because of ongoing symptoms she went to PCP and she was sent emergently to the ER for workup for cauda equina syndrome. CT scans were done which were unremarkable. MRI scans are pending. Patient is alert and oriented and can give her history. Denies any headache. No dizziness. No blurred visions or double visions. No earache. No runny nose. No sore throat. Has cough since COVID 3 years ago. Appetite is okay. No difficulty swallowing. No chest pains. No shortness of breath. No nausea. No abdominal pains. No fevers. No known injuries. Hemodynamics are okay. No recent weight gain or weight loss. No night sweats. Bilateral leg numbness Bilateral leg weakness stool incontinence and some bladder incontinence Going on for last [address] scans were okay Thoracic MRI -Acute inflammatory facet arthropathy at the left T7-8 facet joint. MRIs lumbar spine -Multi level moderate disc degeneration and Critical stenosis at L4-L5 Ortho consulted and notified today am Neurology consult Diabetes Hold home medications Lantus and sliding scale Follow blood sugars Will follow HbA1c levels Obstructive sleep apnea On CPAP nightly Hyperlipidemia On statin and fenofibrate Hypertension On metoprolol We will monitor Hypothyroidism On Synthyroid TSH ok Asthma Continue home inhalers GERD On PPI Gout On allopurinol CKD stage III Presented with creatinine 1.2 We will follow labs DVT prophylaxis scds in anticipation of procedure Disposition Telemetry Full code. History of Present Illness Chief Complaint: Bilateral lower extremity numbness and weakness Primary Care Provider: Sarbjit Carballo MD 59-year-old female with past medical history significant for type 2 diabetes, hyperlipidemia, hypothyroidism, asthma mild persistent, mucous retention cyst of maxillary sinus, obstructive sleep apnea on CPAP, hypertension, GERD, CKD stage III, gout, restless leg syndrome, open angle glaucoma comes because of ongoing waist down numbness and bilateral lower extremity weakness for about 10 days. Patient states since last 10 days waist down she is feeling very numb and also weakness in the lower extremities constantly . She is ambulating okay. Bowel movements ,she does not know they are coming and most of the times she was on the commode when she had a bowel movement but does not have any sensation of the movement. She is in diapers. Bladder movements ,she has urge to go but sometimes she has run to the bathroom. Because of ongoing symptoms she went to PCP and she was sent emergently to the ER for workup for cauda equina syndrome. CT scans were done which were unremarkable. MRI scans are pending. Patient is alert and oriented and can give her history. Denies any headache. No dizziness. No blurred visions or double visions. No earache. No runny nose. No sore throat. Has cough since COVID 3 years ago. Appetite is okay. No difficulty swallowing. No chest pains. No shortness of breath. No nausea. No abdominal pains. No fevers. No known injuries. Hemodynamics are okay. No recent weight gain or weight loss. No night sweats. Past medical history. As mentioned above. Past surgical history. Breast reduction. EGD. Cyst removed from her back. Partial hysterectomy. PEG tube while hospitalized with COVID in 2020. Social history. . No smoking. No alcohol use. No drug use. Family history. Mother has diabetes, CHF, hypertension, renal failure. Maternal grandmother had diabetes Allergies Allergy/AdvReac Type Severity Reaction Status Date / Time lisinopril Allergy Unknown Unknown Verified 12/28/20 18:37 meperidine Allergy Unknown Hives Verified 12/28/20 18:36 Penicillins Allergy Unknown Could not Verified 12/28/20 18:37 use arm after shot Home Medications Medication Instructions Recorded Confirmed Type allopurinol 100 mg tablet 100 mg PO DAILY 12/28/20 06/08/24 History aspirin 81 mg tablet,delayed 81 mg PO DAILY 12/28/20 06/08/24 History release atorvastatin 20 mg tablet 20 mg PO QAM 12/28/20 06/08/24 History dulaglutide 0.75 mg/0.5 mL 1.5 mg subcut WK 12/28/20 06/08/24 History subcutaneous pen injector (Trulicity) empagliflozin 25 mg tablet 25 mg PO DAILY 12/28/20 06/08/24 History (Jardiance) fenofibrate micronized 200 mg 67 mg PO DAILY 12/28/20 06/08/24 History capsule levothyroxine 25 mcg tablet 25 mcg PO QAM 12/28/20 06/08/24 History metformin 1,000 mg tablet 1,000 mg PO BIDM 12/28/20 06/08/24 History montelukast 10 mg tablet 10 mg PO DAILY 12/28/20 06/08/24 History triamcinolone acetonide 0.1 % 1 applic topical BID PRN Other 12/28/20 06/08/24 History topical cream fluticasone propionate 230 2 puff inhalation BID 06/08/24 06/08/24 History mcg-salmeterol 21 mcg/actuation HFA inhaler (Advair HFA) levalbuterol tartrate 45 1 puff inhalation BID PRN Other 06/08/24 06/08/24 History mcg/actuation aerosol inhaler levocetirizine 5 mg tablet 5 mg PO DAILY 06/08/24 06/08/24 History metoprolol succinate 25 mg 25 mg PO DAILY 06/08/24 06/08/24 History tablet,extended release 24 hr omeprazole 20 mg capsule,delayed 20 mg PO BID 06/08/24 06/08/24 History release topiramate 50 mg tablet 50 mg PO BID 06/08/24 06/08/24 History Past Med/Surg History Problem List (Updated 06/08/24 @ 18:23 by Elgin Inman MD) Bladder incontinence (Acute) Bilateral leg numbness (Acute) Bilateral leg weakness (Acute) Tracheostomy care Hyperactive pharyngeal gag reflex Hypoalbuminemia Hypomagnesemia Asthma Mucoid impaction of bronchi Diabetes (Chronic) Medical History Tracheostomy care Social History Smoking Status: Never smoker Hx Alcohol Use: No Hx Substance Use: No Preferred Language: Azeri Communication Ability: Effective Office Machine Servicer Required: No Beliefs That Will Affect Care: None Current Living Situation: Spouse Current Living Situation Comment: home with Feels Safe at Home: Yes Safety Concerns: Feels Safe At This Time Assistive Devices: Oxygen - Continuous Review of Systems Review of Systems: All systems reviewed & are unremarkable except as noted in HPI & below Physical Exam Physical Exam: General- Not in acute distress Head- atraumatic Eyes- PERRL, EOMI, No nystagmus seen ENT- oropharynx clear Neck- supple, no JVD. Lungs- clear to auscultation no wheezing or crackles. Heart- regular rate and rhythm; no murmur, no gallop. Abdomen- normal bowel sounds, soft, nontender, no distension Extremities- no pretibial edema, no erythema seen Neuro- alert, oriented; PERRL, EOMI; no facial palsy; no dysarthria; power 5/5 upper extremity , 3/5 lower extremity; no pronator drift ; sensations minimal in b/l lower extremities Patellar reflexes minimal . Skin- mild injuries seen in left great toe and right third toe Results & Data Results & Data Vital Signs (Past 12 Hours) Vital Signs Temp Pulse Pulse Resp BP BP Pulse Ox 06/08/24 22:00 90 26 H 125/83 96 06/08/24 20:00 87 22 123/80 98 06/08/24 18:06 88 120/77 95 06/08/24 16:58 94 H 06/08/24 16:41 93 H 18 148/96 H 98 06/08/24 15:13 36.8 C 99 H 18 128/75 96 O2 Del Method 06/08/24 22:00 Room Air 06/08/24 20:00 06/08/24 18:06 06/08/24 16:58 06/08/24 16:41 Room Air 06/08/24 15:13 Room Air Diagnostic Findings Laboratory Results WBC 9.48 K/ul (4.8-10.8) 06/08/24 15:50 RBC 5.03 M/uL (4.20-5.40) 06/08/24 15:50 Hgb 13.0 g/dl (12.0-16.0) 06/08/24 15:50 Hct 41.4 % (37.0-47.0) 06/08/24 15:50 MCV 82.3 fL (80.0-100.0) 06/08/24 15:50 MCH 25.8 pg (25.0-34.0) 06/08/24 15:50 MCHC 31.4 g/dL (32.0-36.0) L 06/08/24 15:50 RDW Std Deviation 41.5 fL (36.4-46.3) 06/08/24 15:50 RDW Coeff of Ymnor 14.0 % (11.5-14.5) 06/08/24 15:50 Plt Count 270 K/uL (130-400) 06/08/24 15:50 MPV 11.0 fL (9.4-12.4) 06/08/24 15:50 Immature Gran % (Auto) 0.4 % 06/08/24 15:50 Neut % (Auto) 67.4 % 06/08/24 15:50 Lymph % (Auto) 22.2 % 06/08/24 15:50 Noble % (Auto) 5.3 % 06/08/24 15:50 Eos % (Auto) 4.3 % 06/08/24 15:50 Baso % (Auto) 0.4 % 06/08/24 15:50 Neut # (Auto) 6.39 K/uL (1.40-6.50) 06/08/24 15:50 Lymph # (Auto) 2.10 K/uL (1.20-3.40) 06/08/24 15:50 Noble # (Auto) 0.50 K/uL (0.11-0.59) 06/08/24 15:50 Eos # (Auto) 0.41 K/uL (0.00-0.50) 06/08/24 15:50 Baso # (Auto) 0.04 K/uL (0.00-0.20) 06/08/24 15:50 Immature Gran # (Auto) 0.04 K/uL (0.01-0.20) 06/08/24 15:50 PT 10.5 Seconds (9.0-12.0) 06/08/24 15:50 INR 1.0 (0.9-1.1) 06/08/24 15:50 APTT 26 Seconds (21-31) 06/08/24 15:50 PTT Ratio 1.0 06/08/24 15:50 Sodium 142 mmol/L (136-145) 06/08/24 15:50 Potassium 4.0 mmol/L (3.5-5.1) 06/08/24 15:50 Chloride 108 mmol/L (98-107) H 06/08/24 15:50 Carbon Dioxide 24 mmol/L (21-32) 06/08/24 15:50 Anion Gap 10 (3-11) 06/08/24 15:50 BUN 31 mg/dl (6-23) H 06/08/24 15:50 Creatinine 1.21 mg/dl (0.6-1.2) H 06/08/24 15:50 Est Cr Clr Drug Dosing 53.5 ml/min 06/08/24 15:50 Est GFR ( Amer) 56.3 ml/min 06/08/24 15:50 Est GFR (Non-Af Amer) 48.6 ml/min 06/08/24 15:50 BUN/Creatinine Ratio 25.6 (10-20) H 06/08/24 15:50 Glucose 198 mg/dl (70-99(Fasting)) H 06/08/24 15:50 Calcium 9.4 mg/dl (8.6-10.3) 06/08/24 15:50 Magnesium 1.9 mg/dl (1.7-2.4) 06/08/24 15:50 Total Bilirubin 0.3 mg/dl (0.2-1.0) 06/08/24 15:50 AST 26 U/L (13-39) 06/08/24 15:50 ALT 20 U/L (7-52) 06/08/24 15:50 Alkaline Phosphatase 85 U/L (34-104) 06/08/24 15:50 Troponin I High Sens 5.2 pg/ml (0-14) 06/08/24 15:50 Total Protein 7.4 gm/dl (6.0-8.3) 06/08/24 15:50 Albumin 4.5 gm/dl (3.4-5.0) 06/08/24 15:50 Globulin 2.9 gm/dl (2.5-4.0) 06/08/24 15:50 Albumin/Globulin Ratio 1.6 (0.9-2) 06/08/24 15:50 TSH 2.874 uIu/ml (0.300-4.500) 06/08/24 15:50 Urine Color Yellow 06/08/24 15:30 Urine Appearance Clear (Clear) 06/08/24 15:30 Urine pH 6.5 (4.5-7.5) 06/08/24 15:30 Ur Specific Shorter 1.031 (1.000-1.030) H 06/08/24 15:30 Urine Protein Negative (Negative) 06/08/24 15:30 Urine Glucose (UA) 3+ (Negative) H 06/08/24 15:30 Urine Ketones Negative (Negative) 06/08/24 15:30 Urine Blood Negative (Negative) 06/08/24 15:30 Urine Nitrite Negative (Negative) 06/08/24 15:30 Urine Bilirubin Negative (Negative) 06/08/24 15:30 Urine Urobilinogen Negative (Negative) 06/08/24 15:30 Ur Leukocyte Esterase Negative (Negative) 06/08/24 15:[address] 06/08/24 16:03 CT SCAN OF THE LUMBAR SPINE WITHOUT IV CONTRAST CLINICAL HISTORY: Lower extremity numbness. Urinary incontinence. COMPARISON STUDY: Abdominal CT dated 11/30/2022. TECHNIQUE: CT scan of the lumbar spine is performed from the lower thoracic spine to the sacrum. Images are reviewed in the axial, sagittal, and coronal planes. IV contrast was not administered for this examination. A dose lowering technique was utilized adhering to the principles of ALARA. FINDINGS: The skeletal structures are osteopenic. There is no evidence of acute fracture or malalignment. Vertebral body height and alignment are maintained. Anterior and lateral marginal osteophytes are seen throughout. The transverse and spinous processes appear intact. There is no spondylolysis. No lytic or blastic lesion is seen. Facet arthropathy is noted in the lower lumbar region. [place]w-[id number] disc space narrowing with endplate sclerosis is seen at all lumbar levels between L1-L2 and L4-L5. Posterior disc osteophyte complexes are seen at all lumbar levels. There is [id number] central canal stenosis at L1-L2. There is no CT evidence of high-grade central canal stenosis at the remaining lumbar levels. Lateral disc bulge is seen bilaterally at L3-L4 and L4- L5. This contributes to bilateral subarticular stenosis and may abut the exiting bilateral L3 and L4 nerve roots. There is no CT evidence of high-grade neural foraminal stenosis throughout the lumbar region. The visualized sacrum and bony pelvis appear intact. Degenerative sclerosis is noted in the sacral iliac joints. The paraspinous soft tissues are within normal limits. There is a punctate nonobstructing right renal calculus. No retroperitoneal lymphadenopathy is seen. IMPRESSION: 1. No acute bony abnormality is identified involving the lumbar spine. 2. Osteopenia and degenerative change as above. ACT 112: Negative or not required by law. Dictated: 06/08/2024 5:32 PM Transcribed: 06/08/2024 5:53 PM Braulio [id number] [email or web address] Electronically signed by: Sancho Frye M.D. 06/08/2024 6:[address] 06/08/24 16:03 CT SCAN OF THE THORACIC SPINE WITHOUT IV CONTRAST CLINICAL HISTORY: Lower extremity numbness. Urinary incontinence. COMPARISON STUDY: Chest CT dated 01/21/2021. TECHNIQUE: CT scan of the thoracic spine is performed from the lower cervical spine to the upper lumbar spine. Images are reviewed in the axial, sagittal, and coronal planes. IV contrast was not administered for this examination. A dose lowering technique was utilized adhering to the principles of ALARA. CT DOSE: 2015.75 mGy.cm FINDINGS: The skeletal structures are osteopenic. There is no evidence of fracture or malalignment involving the thoracic spine. No lytic or blastic lesion is seen. Small anterior osteophytes are seen throughout. The transverse and spinous processes appear intact. There is multilevel degenerative disc space narrowing. There is no CT evidence of large disc herniation or high-grade central canal stenosis throughout the thoracic region. The paraspinous soft tissues are within normal limits. The posterior ribs are intact as visualized. There is a punctate nonobstructing right renal calculus. Scarring/atelectasis is noted at the lung bases. IMPRESSION: No acute bony abnormality is seen involving the thoracic spine. ACT 112: Negative or not required by law. Dictated: 06/08/2024 5:54 PM Transcribed: 06/08/2024 6:02 PM Braulio [id number] [email or web address] Electronically signed by: Sancho Frye M.D. 06/08/2024 6:31 PM Code Status & VTE Plan VTE Prophylaxis Plan VTE Prophylaxis will be ordered: Yes
[2024-06-09] MEDS ORDERED: LEVALBUTEROL TARTRATE 15 GM HFA.AER.AD INH PRN (01:18)
[2024-06-09] MEDS ORDERED: DEXTROSE 50% 50 ML SYRINGE IV PRN (01:18)
[2024-06-09] MEDS ORDERED: GLUCAGON FOR INJ 1 MG VIAL SQ PRN (01:18)
[2024-06-09] MEDS ORDERED: GLUCOSE 10 TAB/TUBE PO PRN (01:18)
[2024-06-09] MEDS ORDERED: NITROGLYCERIN SL 0.4 MG/TAB TAB SL PRN (01:18)
[2024-06-09] MEDS ORDERED: POLYETHYLENE (MIRALAX) 17 GM PACK PO PRN (01:18)
[2024-06-09] MEDS ORDERED: CARBOHYDRATES FOR HYPOGLYCEMIA PO PRN (01:18)
[2024-06-09] MEDS ORDERED: ACETAMINOPHEN 325 MG TAB PO PRN (01:18)
[2024-06-09] MEDS ORDERED: GLUCOSE 40% GEL 15 GM TUBE PO PRN (01:18)
--- NOTE | 2024-06-09 01:34 | Magnetic Resonance Report ---
Exam(s): MRI T SPINE W/WO Contrast IV Amt: 8cc gadavist EXAM: MR Thoracic Spine Without and With Intravenous Contrast CLINICAL HISTORY: Reason for exam: Lower extremity weakness, saddle anesthesia, incon. TECHNIQUE: Magnetic resonance images of the thoracic spine without and with intravenous contrast in multiple planes. CONTRAST: Patient received 8cc gadavist of IV contrast COMPARISON: Prior CT scan of the thoracic spine from June 07, 2024. FINDINGS: This study is limited secondary to motion artifact. Vertebrae: Unremarkable. No acute fracture. There is mild multilevel degenerative facet arthropathy with mild to advanced synovitis, most significant at the left T7-8 facet joint with bone marrow edema and inflammation of the surrounding soft tissues. Discs/spinal canal/neural foramina: No acute findings. There is mild to moderate multilevel degenerative disc disease with annular disc bulging flattening the ventral thecal sac. No spinal canal stenosis. Spinal cord: Unremarkable. Normal signal. No abnormal enhancement. Soft tissues: Unremarkable. IMPRESSION: No evidence of acute thoracic spine pathology. Acute inflammatory facet arthropathy at the left T7-8 facet joint. Electronically signed by: Chelsea Olvera MD 06/09/24 01:33 AM
--- NOTE | 2024-06-09 01:45 | Magnetic Resonance Report ---
Exam(s): MRI L SPINE W/WO Contrast IV Amt: 8cc gadavist EXAM: MR Lumbar Spine Without and With Intravenous Contrast CLINICAL HISTORY: Reason for exam: Lower extremity weakness, saddle anesthesia, incon. TECHNIQUE: Magnetic resonance images of the lumbar spine without and with intravenous contrast in multiple planes. CONTRAST: Patient received 8cc gadavist of IV contrast COMPARISON: Prior CT scan of lumbar spine from June 08, 2024. FINDINGS: Vertebrae: There are 5 lumbar type vertebral bodies with a mild generalized curve to the right and shallow lumbar lordosis. There is normal vertebral body height and alignment. The bone marrow signal is heterogeneous with reactive endplate changes. The left L5 transverse process articulates with the sacrum forming a pseudoarthrosis. There is mild bilateral sacroiliac joint arthropathy. No acute fracture. Spinal cord: The conus in normal size, shape and signal characteristics, joint at T12-L1. No abnormal enhancement. Soft tissues: Moderate to advanced atrophy of the iliopsoas, paraspinous intraspinous musculature. The aorta and IVC flow voids are intact. The visualized kidneys are unremarkable. DISCS/SPINAL CANAL/NEURAL FORAMINA: L1-L2: Moderate disc degeneration with annular disc bulge causing a mild subarticular recess stenosis with disc extending to the neural foramina without impingement or significant stenosis. There is mild facet joint arthropathy with mild synovitis. L2-L3: Moderate disc degeneration with annular disc bulge causing a mild subarticular recess stenosis with disc extending to the neural foramina without impingement or significant stenosis. There is minimal facet joint arthropathy with mild synovitis. L3-L4: Moderate disc degeneration with annular disc bulge causing the mild subarticular recess stenosis with superimposed congenitally short pedicles causing mild a mild spinal canal stenosis with thecal sac and measures 0.81 cm. There is disc and osteophyte extending to the neural foramina causing mild bilateral stenosis without evidence of neural impingement. There is minimal to mild facet arthropathy with mild synovitis. L4-L5: Moderate disc degeneration with annular disc bulge causing a severe subarticular recess stenosis with impingement of the transiting L5 nerve roots with superimposed congenitally sharp pedicles causing a critical spinal canal stenosis with thecal sac and ureters and 0.22 cm. There is disc extending to the neural foramina causing a mild right stenosis without evidence of neural impingement. There is mild facet joint arthropathy with mild synovitis. L5-S1: The intervertebral disc is normal. There is mild to moderate facet joint arthropathy with mild synovitis. IMPRESSION: 1. Moderate disc degeneration at L1-L2, L2-3, L3-4 and L4-5 with annular disc bulging causing a mild subarticular recess stenosis and severe subarticular recess stenosis at L4-5 with impingement of the transiting L5 nerve roots. 2. There is a critical spinal canal stenosis at L4-5 and mild stenosis at L3-4. 3. There is mild bilateral L3-4, and mild right L4-5 neural foraminal stenosis without evidence of neural impingement. 4. There is minimal to moderate facet arthropathy with mild synovitis. 5. Mild bilateral sacroiliac joint arthropathy. 6. No evidence of fracture, infection, tumor or arachnoiditis. Electronically signed by: Chelsae Olvera MD 06/09/24 01:44 AM
--- OUTSIDE RECORDS SUMMARY | 2024-06-09 03:21 | External Medical Summary | Summary of Care ---
Author Name Unknown Organization [facility] Address [address] [place] [address] Phone [phone] Care Team Providers Care Sales And Service Representative Name Role Phone Sarbjit Carballo MD Primary Care Provide r Reason for Visit * Reason Comments Lower Extremity Pain Numbness in Extremity Encounter Details Date Type Department Care Team (Late st Contact Info) Description 06/08/2024 2:20 PM EDT Office Visit General Internal Medicine [facility] [address] [place] [address] Luciano Mancilla, [address] [address] Cauda equina syndrome (HCC)*; Leg weakness, bilateral; Bowel and bladder incontinence Allergies Active Allergy Reactions Criticality Noted Date Comments Bee Venom High 07/01/2017 Demerol Rash 03/01/2014 Lisinopril 03/07/2018 hyperkalemia Meperidine 01/26/2021 Other reaction(s): rash Meperidine Hcl High 03/29/2021 Penicillin G High 09/16/2001 Penicillins 01/03/2004 Other reaction(s): Other (See Comments) "Extremity stiffness" documented as of this encounter (statuses as of 06/08/2024) Medications Medication Sig Dispensed Refills Start Date [...] hemoglobin A1c goal of less than 7.0% ([facility]) Inject 0.75 mg under the [...] hyperglycemia, with long-term current use of insulin ([facility]) TAKE 1 TABLET BY MOUTH [...] BEFORE BEDTIME. 60 Tablet 3 05/07/2024 Active SkyRide TechnologyTouch Verio Flex System w/Device Kit Use as [...] as of this encounter (statuses as of 06/08/2024) Active Problems Problem Noted Date Diagnosed Date [...] as of this encounter (statuses as of 06/08/2024) Resolved Problems Problem Noted Date Diagnosed Date [...] as of this encounter (statuses as of 06/08/2024) Immunizations Name Administration Dates Next Due COVID-19 mRNA, LNP-s, No Pre serve, 2-Dose Series (Moderna) 09/26/2021,03/15/2021,02/08/2021 COVID-19, MRNA-LNP, 23-24, P F, 50 MCG/0.5 mL, 12 YRS AND ABOVE, IM (MODERNA-Spikevax) 11/22/2023 Covid-19, Mrna, Lnp-s, Pf, B ivalent, 50 Mcg, IM, 12 yrs and above (Moderna) 11/02/2022 Hepatitis B, 20+ yrs 09/04/1999,04/04/1999,03/04 PPD 04/15/2017,09/21/2011,12/02/2006 Pneumococcal Conjugate Vacci ne, 20-valent (Obnumhf60) 01/14/2023 Pneumococcal Polysaccharide PPV23 (Pneumovax) 09/23/2006 Season [...] Sign Reading Time Taken Comments Blood Pressure 106/62 06/08/2024 2:19 PM EDT Pulse 99 06/08/2024 2:19 PM EDT Temperature 36.7 C (98 F) 06/08/2024 2:19 PM EDT Respiratory Rate - - Oxygen Saturation 97% 06/08/2024 2:19 PM EDT Inhaled Oxygen Concentration - - Weight 82.7 kg (182 lb 6.4 oz) 06/08/2024 2:19 P M EDT Height - - Body Mass Index 29.89 05/05/2024 4:09 PM EDT documented in this encounter Progress Notes * Luciano Mancilla, - 06/08/2024 2:20 PM EDT Subjective Shalini Byers is a 59 year old female. Chief Complaint Patient presents with Lower Extremity Pain Numbness in Extremity HPI: Patient presents for evaluation of leg pain/numbness. Started during the night on 05/28/24. Legsfelt wobbly but happens time to time. Went to [facility] next day with granddaughter, legs felt heavy and numb. No obvious injuries or inciting events. Then went away with home health client on vacation for 1 week. 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 Does not recall any heavy lifting or injuries. States since then has continued to be numb. Legs feel heavy. Sometimes wobbly with walking as legs feel heavy. States not pain in back or down legs. Can feel urge to urinate but sometimes will go without feeling. Does note bowel incontinence. Wearing adult diaper due to this. Has not been taking any medicati ons for symptoms. No back or neck pain. No fever, chills or rashes. No flu like symptoms prior to onset of leg symptoms. PMH: Patient Active Problem List Diagnosis Type 2 diabetes mellitus with hemoglobin A1c goal of less than 7.0% ([facility]) Gouty arthropathy DYSLIPIDEMIA, GOAL LDL BELOW 100 Asthma, mild persistent Hypertriglyceridemia HTN, goal below 140/90 Nephrolithiasis Hypothyroidism Low HDL (under 40) Type 2 diabetes mellitus with hyperglycemia, with long-term current use of insulin ([facility]) Open-angle glaucoma Mucous retention cyst of maxillary sinus Restless legs syndrome (RLS) Gastro-esophageal reflux disease without esophagitis PORTIA on CPAP Chronic kidney disease, stage 3a ([facility]) Type 2 diabetes mellitus with retinopathy without macular edema ([facility]) Current Outpatient Medications Medication Sig Dispense Refill Aspirin EC 81 MG Oral Tablet Delayed Release Take 1 Tab by mouth daily. 100 Tab 3 Brimonidine Tartrate 0.2 % Ophthalmic Solution (Alphagan) INSTILL 1 DROP BY OPHTHALMIC ROUTE 2 TIMES EVERY DAY OK FOR 90 DAY SUPPLY. Levalbuterol Tartrate 45 MCG/ACT Inhalation Aerosol (Xopenex HFA) Inhale 1 Puff by mouth every 4 hours as needed for Wheezing. 15 g 11 Fluticasone-Salmeterol 230-21 MCG/ACT Inhalation Aerosol (Advair HFA) Inhale 2 Puffs by mouth in the morning and 2 Puffs before bedtime. Rinse mouth after use.. 12 g 5 CPAP every night at bedtime. Amitriptyline HCl 25 MG Oral Tablet (Elavil) TAKE 1 TABLET BY MOUTH BEFORE BEDTIME 90 Tablet 3 Trulicity 0.75 MG/0.5ML Subcutaneous Solution Pen-injector (Dulaglutide) Inject 0.75 mg under the skin once a week. 2 mL 0 Spacer/Aero-Holding Chambers Device Use with inhaler. 1 Each 0 Fenofibrate Micronized 67 MG Oral Capsule TAKE 1 CAPSULE BY MOUTH DAILY. 30 Capsule 5 Metoprolol Succinate ER 25 MG Oral Tablet Extended Release 24 Hour (toPROL XL) Take 1 Tablet by mouth daily. 90 Tablet 0 Triamcinolone Acetonide 0.1 % External Cream (Aristocort) APPLY TO THE AFFECTED AREA TOPICALLY TWO TIMES A DAY 80 g 2 metFORMIN HCl 1000 MG Oral Tablet (Glucophage) TAKE 1 TABLET BY MOUTH TWICE A DAY WITH BREAKFAST AND DINNER 180 Tablet 1 Allopurinol 100 MG Oral Tablet Take 1 Tablet by mouth in the morning. 90 Tablet 1 Montelukast Sodium 10 MG Oral Tablet (Singulair) Take 1 Tablet by mouth in the morning. 90 Tablet 1 Levocetirizine Dihydrochloride 5 MG Oral Tablet TAKE 1/2 TABLET BY MOUTH BEFORE BEDTIME 45 Tablet 1 Omeprazole 20 MG Oral Capsule Delayed Release (PriLOSEC) Take 1 Capsule by mouth in the morning and1 Capsule before bedtime. 180 Capsule 1 Levothyroxine Sodium 25 MCG Oral Tablet (Levoxyl) TAKE 1 TABLET BY MOUTH AT LEAST 30 MINUTES PRIOR TO BREAKFAST OR OTHER MEDS 90 Tablet 1 Atorvastatin Calcium 20 MG Oral Tablet (Lipitor) Take 1 Tablet by mouth at bedtime. 90 Tablet 3 Empagliflozin 25 MG Oral Tablet (Jardiance) Take 1 Tablet by mouth in the morning. 90 Tablet 1 Topiramate 50 MG Oral Tablet (topAMAX) Take 1 Tablet by mouth in the morning and 1 Tablet before bedtime. TAKE 1 TABLET BY MOUTH EVERY MORNING AND BEFORE BEDTIME. 60 Tablet 3 [employer] Verio Flex System w/Device Kit Use as directed. Monitor blood sugars up to three times daily. DxE11.9 1 Kit 0 OneTouch Verio In Vitro Strip (Glucose Blood) Use as directed to monitor blood sugars up to three times daily. DxE11.9 300 Strip 3 SkyRide TechnologyTouch Delica Lancets 33G Use as directed to monitor blood sugars up to three times daily. DxE11.9 300 Each 3 Trulicity 1.5 MG/0.5ML Subcutaneous Solution Pen-injector (Dulaglutide) Inject 1.5 mg under the skin once a week. DxE11.9 2 mL 3 No current facility-administered medications for this visit. Past Medical History: Diagnosis Date Abscess of vulva 03/04/10 [facility] ER Acute cystitis 06/21/13 50,000 E [...] FLEXIBLE, DIAGNOSTIC 01/18/2021 PEG placed / INPT [facility] INFORMATION cyst removed from her back MAMMOGRAM SCREENING BILATERAL Bilateral 03/19/2019 scattered fibroglandular densities, category 2 benign MAMMOGRAM SCREENING-BILATERAL 07/05/2008 almost entirely fat, category 1 normal PARTIAL HYSTERECTOMY 2001 DUB has ovaries, Dr Swanson, [facility] PEG TUBE EDU 01/18/2021 while hosp with Covid REDUCTION OF BREAST Bilateral 1992 Review of patient's allergies indicates: Allergen Reactions Bee Venom Meperidine Hcl Penicillin G Demerol Rash Lisinopril hyperkalemia Meperidine Other reaction(s): rash Penicillins Other reaction(s): Other (See Comments) "Extremity stiffness" Family History Problem Relation Name Age of Onset Diabetes Mother Heart Disorder Mother CHF Hypertension Mother Renal Hx Mother renl failure at end of diabetes Diabetes Grandmother (Maternal) Breast Cancer No significant family history Family Status Relation Status Mo at age 49 diabetes Fa Other doesn't know Fa cancer but unkown type MGMA diabetes No history (Not Specified) Social History Socioeconomic History Marital status: Spouse [...] Stability Do you currently live in a fci or have no steady place to sleep [...] ages0-17 years): Not on file Review of Systems Constitutional: Negative for chills, fatigue and fever. HENT: Negative for congestion, sore throat and trouble swallowing. Eyes: Negative for photophobia and itching. Respiratory: Negative for apnea, cough, shortness of breath and wheezing. Cardiovascular: Negative for chest pain and palpitations. Gastrointestinal: Negative for abdominal distention, abdominal pain, nausea and vomiting. Genitourinary: Negative for dysuria and frequency. Musculoskeletal: Positive for gait problem. Negative for arthralgias, back pain, joint swelling, myalgias, neck pain and neck stiffness. Skin: Negative for pallor and rash. Neurological: Positive for weakness and numbness. Negative for dizziness, light- headedness and headaches. In both legs Psychiatric/Behavioral: Negative for sleep disturbance. The patient is not nervous/anxious. Objective LMP 04/30/2002 Physical Exam Constitutional: General: She is not in acute distress. Appearance: She is not ill-appearing. HENT: Head: Normocephalic and atraumatic. Right Ear: Tympanic membrane, ear canal and external ear normal. Left Ear: Tympanic membrane, ear canal and external ear normal. Nose: Nose normal. No congestion or rhinorrhea. Mouth/Throat: Mouth: Mucous membranes are moist. Pharynx: Oropharynx is clear. Eyes: Extraocular Movements: Extraocular movements intact. Conjunctiva/sclera: Conjunctivae normal. Pupils: Pupils are equal, round, and reactive to light. Cardiovascular: Rate and Rhythm: Normal rate and regular rhythm. Pulses: Normal pulses. Heart sounds: Normal heart sounds. No murmur heard. No friction rub. No gallop. Pulmonary: Effort: Pulmonary effort is normal. Breath sounds: Normal breath sounds. No wheezing, rhonchi or rales. Abdominal: General: Bowel sounds are normal. There is no distension. Palpations: Abdomen is soft. There is no mass. Tenderness: There is no abdominal tenderness. Genitourinary: Comments: Decreased sphincter tone on rectal exam Musculoskeletal: General: No deformity. Normal range of motion. Cervical back: Normal range of motion and neck supple. Right lower leg: No edema. Left lower leg: No edema. Comments: No back pain or deformities noted Lymphadenopathy: Cervical: No cervical adenopathy. Skin: General: Skin is warm and dry. Coloration: Skin is not jaundiced. Findings: No rash. Neurological: General: No focal deficit present. Mental Status: She is oriented to person, place, and time. Sensory: Sensory deficit present. Motor: Weakness present. Coordination: Coordination normal. Gait: Gait abnormal. Deep Tendon Reflexes: Reflexes abnormal. Comments: Patient has diminished sensation throughout both of her lower extremities. Weakness 4/5 in both lower extremities. Her patellar and Achilles reflexes are diminished 1/4 bilaterally Psychiatric: Mood and Affect: Mood normal. Behavior: Behavior normal. ASSESSMENT/PLAN: Cauda equina syndrome (HCC) (Primary) Leg weakness, bilateral Bowel and bladder incontinence Plan: Patient presents to office for evaluation of bilateral lower extremity numbness. Started about 10 days ago without obvious injury. Does not have any history of back procedures or surgeries. No known history of spinal stenosis Leg numbness is also associated with weakness of the lower extremities along with bowel/bladder incontinence. No known issues with numbness/weakness from the waist up All of these are all concerning for possible cord compression or cauda equina syndrome. Explained to patient/ the concerning nature of her symptoms. There is real concern for myelopathy/cord compression. Unclear etiology at this time. She needs a stat MRI of her lumbar spine if not thoracic and cervical as well. Will be referring patient over to the ER at [facility]. Her will drive her over. I reached out [facility] and spoke to nurse Brooks. Gave report anmd they will await patient arrival. Recommend follow-up for patient after ER evaluation/treatment Continue other meds/management for now Follow Up: Return if symptoms worsen or fail to improve, for Follow up next routine with PCP as scheduled. | For: Follow up next routine with PCP as scheduled | Check-out note: Follow up after ER evaluation I spent a total of 40-54 minutes (exact time 44 mins) on the date of service in preparation, delivery, and documentation of the care provided to Shalini Byers excluding any time spent in the performance of separately billed services or time spent by another provider/QHP. Luciano Mancilla DO documented in this encounter Nursing Notes * Ayhsa Oakley CMA - 06/08/2024 2:17 PM EDT Patient presents today with concerns regarding numbness/tingling in both of her legs. She states this started on 05/28/24 and almost all of the time she has no feeling in her legs. She denies any pain,she can feel urge to use the bathroom but can't feel or control when she goes, especially with bowel movements. She is wearing adult briefs because of this. She does not recall any trauma or injury to her back, no lifting. documented in this encounter Plan of Treatment Upcoming Encounters Date Type Department Care Team (Late st Contact Info) Description 06/24/2024 6:10 PM EDT Pharmacy Pharmacy, [address] [place] [id number] [place] [address] 11/05/2024 4:20 PM EST Office Visit [address] [place] [phone] Sharlene Pacheco CRNP [address] [place] [address] [place] [id number] 05/07/2025 4:20 PM EDT Office Visit [address] [place] [phone] Sarbjit Carballo MD [address] [place] [address] [place] [id number] 05/31/2025 3:30 PM EDT Imaging Radiology [address] [place] [address] Health Maintenance Due Date Last Done Comments HIV Screening 1979 Colonoscopy 2009 Sigmoidoscopy 2009 Zoster Vaccines (1 of 2) 2014 CKD PHOS USE SMARTSET [id number] 01/22/2017 04/0 01/2016, 07/26/2015, 02/25/2015, Additional history exists Fecal Occult Blood Test 04/18/2018 04/18/2017, 11/27 Depression Screening 02/06/2023 02/06/2022 CKD HGB USE SMARTSET [id number] 01/12/202401/11, 01/11/2023, 12/08/2021, Additional history exists GFR [...] 12/12/2021, Additional history exists Mammogram 05/27/2025 05/27/2024, 0804/2024, 04/09/2023, Additional history exists DTaP,Tdap,and Td Vaccines (4 [...] as of this encounter Visit Diagnoses Diagnosis Cauda equina syndrome (HCC)- Primary Cauda equina syndrome without mention of neurogenic bladder Leg weakness, bilateral Other musculoskeletal symptoms referable to limbs Bowel and bladder incontinence Unspecified urinary incontinence Screening mammogram for breast cancer documented in this encounter Care Teams Sales And Service Representative Relationship Specialty Start Date End Date Sarbjit Carballo MD [address] [place] [address] [place] [address] PCP - General Family Medicine 07/12/22 documented as of this encounter
[2024-06-09] MEDS: SODIUM CHLORIDE 0.9% 1,000 ML IV SCH ×2 (03:26→19:51)
[2024-06-09 06:28] LABS: Basophils # (auto) 0.04 K/uL (0.00-0.20); Basophils % (auto) 0.5 %; Eosinophils # (auto) 0.38 K/uL (0.00-0.50); Eosinophils % (auto) 5.2 %; Hematocrit (blood only) 35.2 % (37.0-47.0); Hemoglobin 11.1 g/dl (12.0-16.0); Immature Granulocytes # (auto) 0.04 K/uL (0.01-0.20); Immature Granulocytes % (auto) 0.5 %; Lymphocytes # (auto) 2.18 K/uL (1.20-3.40); Lymphocytes % (auto) 29.6 %; Mean Corpuscular Hemoglobin 26.1 pg (25.0-34.0); Mean Corpuscular Hgb Conc 31.5 g/dL (32.0-36.0); Mean Corpuscular Volume 82.6 fL (80.0-100.0); Mean Platelet Volume 10.9 fL (9.4-12.4); Monocytes % (auto) 8.2 %; Neutrophils # (auto) 4.12 K/uL (1.40-6.50); Platelet Count 230 K/uL (130-400); RDW Coefficient of Variation 14.1 % (11.5-14.5); RDW Standard Deviation 41.6 fL (36.4-46.3); Red Blood Count 4.26 M/uL (4.20-5.40); White Blood Count 7.36 K/ul (4.8-10.8)
[2024-06-09 06:44] LABS: Calcium 8.8 mg/dl (8.6-10.3); Creatinine Clr Calc Pharmacy 60.5 ml/min; Est GFR (African American) 65.3 ml/min; Est GFR (Non-African American) 56.4 ml/min; Magnesium 1.9 mg/dl (1.7-2.4); Potassium 3.9 mmol/L (3.5-5.1)
[2024-06-09 07:51] LABS: Estimated Average Glucose 240 mg/dl
[2024-06-09] MEDS: LEVOTHYROXINE SODIUM 25 MCG TABLET PO SCH (08:04)
[2024-06-09] MEDS: allopurinoL 100 MG TAB PO SCH (08:05)
[2024-06-09] MEDS: ASPIRIN 81 MG ECTAB PO SCH (08:05)
[2024-06-09] MEDS: ATORVASTATIN 20 MG TAB PO SCH (08:06)
[2024-06-09] MEDS: FENOFIBRATE NANOCRYSTALLIZED 48 MG TABLET PO SCH (08:07)
[2024-06-09] MEDS: CETIRIZINE HCL 10 MG TABLET PO SCH (08:07)
[2024-06-09] MEDS: METOPROLOL SUCC 25MG EXT REL TAB PO SCH (08:08)
[2024-06-09] MEDS: PANTOprazole 40 MG TAB PO SCH (08:09)
[2024-06-09] MEDS: TOPIRAMATE 50 MG TAB PO SCH (08:09)
[2024-06-09] MEDS: MONTELUKAST SODIUM 10 MG TABLET PO SCH (08:09)
[2024-06-09] MEDS: FLUTICASONE/VILANTEROL 100/25MCG 14 PUFFS/INHALER INH SCH (08:10)
--- NOTE | 2024-06-09 08:53 | XRay Report ---
XR thoracolumbar spine 2V CLINICAL HISTORY: leg numbness,weakness STANDING XRAY COMPARISON STUDY: Thoracic and lumbar spine MRI 06/08/2024. FINDINGS: Mild dextroscoliosis within the lumbar spine. No acute fracture within the visualized lower thoracic or lumbar spine. Mild degenerative disc disease within the visualized thoracic spine. Mild- to-moderate degenerative changes again noted within the lumbar spine. There is 3 mm of anterolisthesi s of L1 on L2. This is likely due to the long-standing degenerative change. IMPRESSION: 1. No acute fractures within the visualized thoracic or lumbar spine. 2. Degenerative changes as described above. This is better appreciated on the recent MRI. ACT 112: Negative or not required by law. Electronically signed by: Abiodun Fernandez M.D. 06/09/2024 8:51 AM
[2024-06-09] MEDS ORDERED: ENOXAPARIN INJ 40 MG/0.4 ML SYR SQ SCH (09:00)
[2024-06-09] MEDS: INSULIN ASPART PER UNIT CHARGE SC SCH ×3 (09:45→20:06)
--- NOTE | 2024-06-09 10:05 | Orthopedic Consultation ---
Date of Consultation June 09, 2024 Assessment & Plan (1) Cauda equina syndrome due to spinal stenosis: MRI available for review demonstrates evidence of multilevel degenerative disc disease with severe spinal stenosis L4-L5. Assessment severe lumbar spinal stenosis with evidence of cauda equina syndrome. Plan at this time in length yesterday with the patient reviewing MRI findings and clinical recommendations. It appears the majority of her symptom complex is emanating from the L4-5 level. The L1-L2 level also has some evidence of stenosis and anterior listhesis. At this point in the light of her diagnosis and presentation and recommending emergent decompression and fusion L4-L5. This would allow us to adequately open up the spinal canal and remove all disc pressure on the thecal sac. Ideally this would help with her symptom complex however I emphasized this has been present for several days and ultimately recovery may take months to determine. This benefits pros cons alternatives in detail. Risk include but not limited to anesthesia blindness stroke paralysis nerve damage blood loss requiring transfusion infection requiring operation benefits with the relief of the compressed nerves and recovery. Patient stands agrees. Plan for surgery soon as possible. History of Present Illness Reason for Consultation: Bilateral leg weakness numbness and loss of bowel and bladder control Attending Physician: Rico Francisco, DO History of Present Illness This is a very pleasant 5-year-old female who presents emergency room with loss of strength in the lower extremities bilateral lower extremity numbness from the waist down with loss of bowel or bladder control. She denies any specific trauma fall or event. She states this has been progressive over the past 10 days. 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 She is relatively comfortable while supine. She has no history of previous back surgery injections or any significant issues. Allergies Allergy/AdvReac Type Severity Reaction Status Date / Time lisinopril Allergy Unknown Unknown Verified 12/28/20 18:37 meperidine Allergy Unknown Hives Verified 12/28/20 18:36 Penicillins Allergy Unknown Could not Verified 12/28/20 18:37 use arm after shot Home Medications Medication Instructions Recorded Confirmed Type allopurinol 100 mg tablet 100 mg PO DAILY 12/28/20 06/08/24 History aspirin 81 mg tablet,delayed 81 mg PO DAILY 12/28/20 06/08/24 History release atorvastatin 20 mg tablet 20 mg PO QAM 12/28/20 06/08/24 History dulaglutide 0.75 mg/0.5 mL 1.5 mg subcut WK 12/28/20 06/08/24 History subcutaneous pen injector (Trulicity) empagliflozin 25 mg tablet 25 mg PO DAILY 12/28/20 06/08/24 History (Jardiance) fenofibrate micronized 200 mg 67 mg PO DAILY 12/28/20 06/08/24 History capsule levothyroxine 25 mcg tablet 25 mcg PO QAM 12/28/20 06/08/24 History metformin 1,000 mg tablet 1,000 mg PO BIDM 12/28/20 06/08/24 History montelukast 10 mg tablet 10 mg PO DAILY 12/28/20 06/08/24 History triamcinolone acetonide 0.1 % 1 applic topical BID PRN Other 12/28/20 06/08/24 History topical cream fluticasone propionate 230 2 puff inhalation BID 06/08/24 06/08/24 History mcg-salmeterol 21 mcg/actuation HFA inhaler (Advair HFA) levalbuterol tartrate 45 1 puff inhalation BID PRN Other 06/08/24 06/08/24 History mcg/actuation aerosol inhaler levocetirizine 5 mg tablet 5 mg PO DAILY 06/08/24 06/08/24 History metoprolol succinate 25 mg 25 mg PO DAILY 06/08/24 06/08/24 History tablet,extended release 24 hr omeprazole 20 mg capsule,delayed 20 mg PO BID 06/08/24 06/08/24 History release topiramate 50 mg tablet 50 mg PO BID 06/08/24 06/08/24 History Patient History Medical History Tracheostomy care Social History Smoking Status: Never smoker Hx Alcohol Use: No Hx Substance Use: No Preferred Language: Montserratian Communication Ability: Effective Gambling Broker Required: No Beliefs That Will Affect Care: None Current Living Situation: Spouse Current Living Situation Comment: home with Feels Safe at Home: Yes Safety Concerns: Feels Safe At This Time Assistive Devices: Oxygen - Continuous Physical Exam Physical Exam: On exam she has numbness in the perineal area and bilateral lower extremities. Sensation to cold is intact. Deep tendon reflexes diminished. She exhibits marked deficits at a 3+/5 bilateral hip flexors quadriceps bilateral dorsiflexion extensor houses longus. She has loss of rectal tone. Results & Data Vital Signs (Past 12 Hours) Vital Signs Pulse Pulse Resp BP Pulse Ox Pulse Ox O2 Del Method 06/09/24 08:16 85 19 122/76 98 Room Air 06/09/24 08:16 99 06/09/24 07:09 80 06/09/24 06:24 80 23 120/75 99 CPAP 06/09/24 05:48 77 18 99 CPAP 06/09/24 01:42 88 21 96 06/09/24 00:00 94 H 25 H 108/74 93 Room Air 06/08/24 23:59 90 O2 Del Method O2 Flow Rate 06/09/24 08:16 06/09/24 08:16 Room Air 06/09/24 07:09 06/09/24 06:24 2 06/09/24 05:48 2 06/09/24 01:42 06/09/24 00:00 06/08/24 23:59
[2024-06-09] MEDS ORDERED: ONDANSETRON INJ 2 MG/ML 2 ML VIAL ONE (11:11)
[2024-06-09] MEDS ORDERED: MIDAZOLAM HCL 1 MG/ML 2ML VIAL ONE (11:11)
[2024-06-09] MEDS ORDERED: GLYCOPYRROLATE 0.2 MG/ML VIAL ONE (11:11)
[2024-06-09] MEDS ORDERED: PROPOFOL IV EMULSION 10 MG/ML 20 ML VIAL IV ONE (11:11)
[2024-06-09] MEDS ORDERED: LIDOCAINE 2% 2 ML VIAL/AMP(20MG/ML) INFIL ONE (11:11)
[2024-06-09] MEDS ORDERED: fentaNYL citrate PF 100 MCG/2 ML VIAL ONE ×2 (11:11→16:49)
[2024-06-09] MEDS ORDERED: DEXAMETHASONE SOD INJ 4 MG/ML VIAL ONE (11:11)
[2024-06-09] MEDS ORDERED: ROCURONIUM BROMIDE 10 MG/ML 5 ML VIAL IV ONE (11:11)
[2024-06-09] MEDS ORDERED: SUGAMMADEX SODIUM 200 MG/2 ML VIAL IV ONE (11:12)
--- NOTE | 2024-06-09 11:32 | Anesthesiology Consultation ---
Date of Service June 09, 2024 Assessment & Plan (1) Encounter for pre-operative examination: Chart Review Chart Review: Acceptable Risk for Surgery (urgent procedure) History Surgery Operation Date: 06/09/24 07:00 Proposed Procedures p L4-L5 Decompression Fusion - Ian Webb DO Height/Weight Height: 5 ft 6 in Weight: 82.5 kg Allergies Allergy/AdvReac Type Severity Reaction Status Date / Time lisinopril Allergy Unknown Unknown Verified 12/28/20 18:37 meperidine Allergy Unknown Hives Verified 12/28/20 18:36 Penicillins Allergy Unknown Could not Verified 12/28/20 18:37 use arm after shot Medications Home Medications Medication Instructions Recorded Confirmed Last Taken allopurinol 100 mg tablet 100 mg PO DAILY 12/28/20 06/08/24 Unknown aspirin 81 mg tablet,delayed 81 mg PO DAILY 12/28/20 06/08/24 Unknown release atorvastatin 20 mg tablet 20 mg PO QAM 12/28/20 06/08/24 Unknown dulaglutide 0.75 mg/0.5 mL 1.5 mg subcut WK 12/28/20 06/08/24 Unknown subcutaneous pen injector (Trulicity) empagliflozin 25 mg tablet 25 mg PO DAILY 12/28/20 06/08/24 Unknown (Jardiance) fenofibrate micronized 200 mg 67 mg PO DAILY 12/28/20 06/08/24 Unknown capsule levothyroxine 25 mcg tablet 25 mcg PO QAM 12/28/20 06/08/24 Unknown metformin 1,000 mg tablet 1,000 mg PO BIDM 12/28/20 06/08/24 Unknown montelukast 10 mg tablet 10 mg PO DAILY 12/28/20 06/08/24 Unknown triamcinolone acetonide 0.1 % 1 applic topical BID PRN Other 12/28/20 06/08/24 Unknown topical cream fluticasone propionate 230 2 puff inhalation BID 06/08/24 06/08/24 Unknown mcg-salmeterol 21 mcg/actuation HFA inhaler (Advair HFA) levalbuterol tartrate 45 1 puff inhalation BID PRN Other 06/08/24 06/08/24 Unknown mcg/actuation aerosol inhaler levocetirizine 5 mg tablet 5 mg PO DAILY 06/08/24 06/08/24 Unknown metoprolol succinate 25 mg 25 mg PO DAILY 06/08/24 06/08/24 Unknown tablet,extended release 24 hr omeprazole 20 mg capsule,delayed 20 mg PO BID 06/08/24 06/08/24 Unknown release topiramate 50 mg tablet 50 mg PO BID 06/08/24 06/08/24 Unknown Active Medications Generic Name Dose Route Start Last Admin Trade Name Richelle PRN Reason Stop Dose Admin Allopurinol 100 mg 06/09/24 09:00 06/09/24 08:05 Allopurinol 100 Mg Tab PO 07/09/24 08:59 100 mg DAILY SAVANNAH Administration Aspirin 81 mg 06/09/24 09:00 06/09/24 08:05 Aspirin 81 Mg Ectab PO 07/09/24 08:59 81 mg DAILY SAVANNAH Administration Atorvastatin Calcium 20 mg 06/09/24 09:00 06/09/24 08:06 Atorvastatin 20 Mg Tab PO 07/09/24 08:59 20 mg QAM SAVANNAH Administration Cetirizine HCl 10 mg 06/09/24 09:00 06/09/24 08:07 Cetirizine Hcl 10 Mg Tablet PO 07/09/24 08:59 10 mg DAILY SAVANNAH Administration Fenofibrate 48 mg 06/09/24 09:00 06/09/24 08:07 Fenofibrate Nanocrystallized 48 Mg Tablet PO 07/09/24 08:59 48 mg DAILY SAVANNAH Administration Fluticasone/Vilanterol 1 puffs 06/09/24 09:00 06/09/24 08:10 Fluticasone/Vilanterol 100/25mcg 14 Puffs/Inhaler INH 07/09/24 08:59 1 puffs DAILY SAVANNAH Administration Sodium Chloride 1,000 mls @ 75 mls/hr 06/09/24 01:18 06/09/24 03:26 Nss IV 06/09/24 14:37 75 mls/hr .[id number] SAVANNAH Administration Insulin Aspart 0 units 06/09/24 07:45 06/09/24 09:45 Insulin Aspart Per Unit Charge SC 07/09/24 07:44 Not Given Q6 SAVANNAH Levothyroxine Sodium 25 mcg 06/09/24 06:30 06/09/24 08:04 Levothyroxine Sodium 25 Mcg Tablet PO 07/09/24 06:29 25 mcg DAILYBB SAVANNAH Administration Metoprolol Succinate 25 mg 06/09/24 09:00 06/09/24 08:08 Metoprolol Succ 25mg Ext Rel Tab PO 07/09/24 08:59 25 mg DAILY SAVANNAH Administration Montelukast Sodium 10 mg 06/09/24 09:00 06/09/24 08:09 Montelukast Sodium 10 Mg Tablet PO 07/09/24 08:59 10 mg DAILY SAVANNAH Administration Pantoprazole Sodium 40 mg 06/09/24 09:00 06/09/24 08:09 Pantoprazole 40 Mg Tab PO 07/09/24 08:59 40 mg BID SAVANNAH Administration Topiramate 50 mg 06/09/24 09:00 06/09/24 08:09 Topiramate 50 Mg Tab PO 07/09/24 08:59 50 mg BID SAVANNAH Administration Past Medical History Medical History (Updated 06/09/24 @ 11:38 by Ariel Reece MD) Glaucoma Gout PORTIA (obstructive sleep apnea) CKD (chronic kidney disease) Cauda equina syndrome due to spinal stenosis Asthma Diabetes Past Surgical History Surgical History (Updated 06/09/24 @ 11:35 by Ariel Reece MD) Hx of tracheostomy History of gastrostomy Hx of breast reduction, elective Social History Smoking Status: Never smoker Hx Alcohol Use: No Hx Substance Use: No Physical Exam Vital Signs Last Vital Signs Temp 36.8 C 06/08/24 15:13 Pulse 79 06/09/24 10:50 Resp 15 06/09/24 10:50 BP 127/78 06/09/24 10:50 Pulse Ox 99 06/09/24 10:50 O2 Del Method Room Air 06/09/24 10:50 O2 Flow Rate 2 06/09/24 06:24 Testing Laboratory Results 06/09/24 05:59 06/09/24 05:59 PT 10.5 Seconds (9.0-12.0) 06/08/24 15:50 INR 1.0 (0.9-1.1) 06/08/24 15:50 APTT 26 Seconds (21-31) 06/08/24 15:50 Hemoglobin A1c 10.0 % (4.5-5.6) H 06/09/24 05:59 Urine Color Yellow 06/08/24 15:30 Urine Appearance Clear (Clear) 06/08/24 15:30 Urine pH 6.5 (4.5-7.5) 06/08/24 15:30 Ur Specific [place]on 1.031 (1.000-1.030) H 06/08/24 15:30 Urine Protein Negative (Negative) 06/08/24 15:30 Urine Glucose (UA) 3+ (Negative) H 06/08/24 15:30 Urine Ketones Negative (Negative) 06/08/24 15:30 Urine Nitrite Negative (Negative) 06/08/24 15:30 Ur Leukocyte Esterase Negative (Negative) 06/08/24 15:30 06/09/24 06/09/24 08:14 06:11 POC Glucose 131 H 182 H
--- NOTE | 2024-06-09 13:09 | Hospitalist Progress Note ---
Date of Service June 09, 2024 Assessment & Plan (1) Cauda equina syndrome due to spinal stenosis: (2) CKD (chronic kidney disease): (3) Diabetes mellitus type 2 with complications: (4) Hypothyroid: Plan Patient with significant radiculopathy and symptoms related to cauda equina syndrome from severe spinal stenosis. Patient is high risk for further decompensation more permanent neurological deficits if not cared for in the hospital and undergo anticipated procedure as recommended by orthopedics. Reviewed orthopedic spine consultation, anticipate surgical intervention of lumbar decompression as soon as possible Patient medically maximized to undergo anticipated surgical intervention Continue to monitor glucose with insulin management Continue other medications as prescribed Continue steroids for anti-inflammatory effect Continue pain control 52 minutes spent on review of records, reviewing imaging, communication with medical team, coordination of care, evaluation of patient at bedside Admission and Anticipated Discharge Date Admission Date: June 08, 2024 Subjective Patient's symptoms are unchanged, continue with numbness and paresthesias below the waist Physical Exam Physical Exam: Constitutional: Alert HEENT: Mucous membranes moist. Lungs: Clear to auscultation, decreased, no wheezes rales or rhonchi CV: S1-S2, regular Abdomen: Soft, nontender, nondistended Extremities: No significant edema Neuro: Lower extremity weakness and paresthesias Psych: Cooperative, normal mood Results & Data Results & Data Vital Signs (Past 12 Hours) Vital Signs Pulse Pulse Resp BP Pulse Ox Pulse Ox O2 Del Method 06/09/24 11:58 85 06/09/24 10:50 79 15 127/78 99 Room Air 06/09/24 08:16 85 19 122/76 98 Room Air 06/09/24 08:16 99 06/09/24 07:09 80 06/09/24 06:24 80 23 120/75 99 CPAP 06/09/24 05:48 77 18 99 CPAP 06/09/24 01:42 88 21 96 O2 Del Method O2 Flow Rate 06/09/24 11:58 06/09/24 10:50 06/09/24 08:16 06/09/24 08:16 Room Air 06/09/24 07:09 06/09/24 06:24 2 06/09/24 05:48 2 06/09/24 01:42 Diagnostic Findings Reviewed imaging, laboratory and diagnostic studies. Pertinent findings as below. Hemoglobin A1c 10% Glucose 173
[2024-06-09] MEDS: LACTATED RINGER'S 1,000 ML IV SCH (14:38)
--- NOTE | 2024-06-09 14:50 | Electrocardiogram Report ---
Test Reason : Blood Pressure : */* mmHG Vent. Rate : 82 BPM Atrial Rate : 82 BPM P-R Int : 126 ms QRS Dur : 86 ms QT Int : 392 ms P-R-T Axes : 28 51 68 degrees QTcB Int : 457 ms Normal sinus rhythm Normal ECG When compared with ECG of 20-Jan-2021 10:12, No significant change was found Confirmed by Arvin Arzola ([id number]) on 06/09/2024 2:50:26 PM Referred By: Luciano Mancilla Confirmed By: Arvin Arzola
[2024-06-09] MEDS ORDERED: ATROPINE SULFATE 0.1 MG/ML 10ML SYR IV PRN ×2 (15:03→15:07)
[2024-06-09] MEDS ORDERED: ONDANSETRON INJ 2 MG/ML 2 ML VIAL IV PRN ×3 (15:03→18:13)
[2024-06-09] MEDS ORDERED: HYDROmorphone INJ 2 MG/ML SYR/VIAL IV PRN ×2 (15:03→15:06)
[2024-06-09] MEDS ORDERED: ePHEDrine sulfate 50 MG/ML AMP IV PRN ×2 (15:03→15:06)
[2024-06-09] MEDS ORDERED: fentaNYL citrate PF 100 MCG/2 ML VIAL IV PRN ×2 (15:03→15:06)
[2024-06-09] MEDS ORDERED: PROMETHAZINE HCL 6.25 MG in SODIUM CHLORIDE 0.9% 50 ML IV PRN ×2 (15:03→15:06)
[2024-06-09] MEDS: ceFAZolin 2000MG 2,000 MG/15 ML SYR IV ONE (15:18)
[2024-06-09] MEDS: BUPIVACAINE/EPINEPHRINE 0.25% 1:200,000 30 ML VIAL ONE (15:42)
[2024-06-09] MEDS: FLOSEAL HEMOSTATIC MATRIX 10ML TOP ONE (16:36)
--- NOTE | 2024-06-09 16:47 | Fluoroscopy Report ---
INTRAOPERATIVE RADIOGRAPHS CLINICAL HISTORY: Lumbar spinal fusion surgery. Fluoro time: 17 seconds Ka,r: 10.70 mGy FINDINGS: 2 spot fluoroscopic views of the lumbar spine are presented. There has been discectomy at L 4-L5 with laminectomy and posterior fusion at this level. Interpedicular screws are in place. The ort hopedic hardware appears intact. IMPRESSION: Intraoperative images from lumbar spinal fusion surgery as above. Electronically signed by: Sancho Frye M.D. 06/09/2024 4:46 PM
--- NOTE | 2024-06-09 16:55 | Operative Report ---
Post Operative Report Pre & Post Diagnosis Operation Date: 06/09/24 07:00 Pre-Op Diagnosis: Cauda equina syndrome due to spinal stenosis Post-Op Diagnosis: Cauda equina syndrome due to spinal stenosis I identified the patient and participated in the time-out.: Yes Procedure Operation Date: 06/09/24 07:00 Actual Procedures #1 lumbar decompression bilaterally facetectomies and foraminotomies L4-L5. #2 posterior spinal fusion L4-L5. #3 placement posterior instrumentation L4-L5. #4 interbody fusion L4-L5 #5 placement of Spira 11 x 26 mm x 2 at L4-L5. #6 placement locally harvested morselized autograft in the posterior gutters. #7 placement infuse collagen sponge combined with Koros in the posterior gutters and os design interbody space. #8 placement of versa wrap on the exposed dura. Surgeon Ian Webb, Yarn Bleaching Machine Operator Annette Bethea Estimated Blood Loss 50 Findings Consistent with Post-Op Diagnosis Specimens None Indications This is a 59-year-old female who presents the emergency room this morning with significant loss of function lower extremities perineal numbness and evidence of cauda equina on exam and on imaging. Subsequently she is here for urgent decompression fusion. Description of Procedure Patient was met with identified informed consent obtained. Patient was then taken to the operative suite underwent ablation placed in a prone position on the Jeffery table on top of the Ren frame. All bony prominences well-padded eyes inspected to ensure no external pressure placed upon them. This point the lumbar spine was prepped and draped in normal sterile fashion. Sharp dissection with assistance of Bovie cautery was performed down to and exposing the lamina transverse processes of L4-L5. From caudal to cephalad fashion complete laminectomy of L4 was performed including bilateral medial facetectomies and foraminotomies addressing severe spinal stenosis. Pedicle screws then placed in L4-L5 bilaterally with assistance of fluoroscopy appropriate size carolina placed. By way of transforaminal approach and right a complete discectomy of L4-L5 was performed endplates guided to subcortical bleeding bone and an 11 x 26 mm Spira cage filled os design tapped in position. Then proceeded to the left transforaminal region again discectomy performed endplates guarded to subcortical mean bone and a second 11 x 26 mm Spira cage filled with os design tapped in position. The rods were then locked in a final position bilaterally. The transverse processes of L4-L5 burred to subcortical bleeding bone. Infuse collagen sponge combined with Koros bone graft placed in the posterior lateral gutters. 15 round DARIN drain inserted. Versa wrap was placed over the exposed dura. The incision was then closed with 1 Vicryl the fascia 2-0 Vicryl subcutaneously and 4 Monocryl for final skin closure. Steri-Strips sterile dressing placed. Patient waken taken to PACU stable condition. Please note spinal cord monitoring was utilized at the procedure no changes noted. Lastly Annette Bethea was present out the entire procedure and all the patient positioning complex portion of the surgery and final skin closure. I attest to the content of the Intraoperative Record and any orders documented therein. Any exceptions are noted below.
--- NOTE | 2024-06-09 17:49 | Anesthesiology Progress Note ---
Date of Service June 09, 2024 Anesthesia Post Procedure Vital Signs Vital Signs: Temp Pulse Pulse Pulse Resp BP Pulse Ox 06/09/24 17:40 36.1 C L 85 17 143/76 H 92 06/09/24 17:30 90 18 142/81 H 96 06/09/24 17:20 88 17 142/84 H 99 06/09/24 17:10 79 11 L 93/52 L 97 06/09/24 17:01 36.1 C L 78 22 99/50 L 96 06/09/24 11:58 85 06/09/24 10:50 79 15 127/78 99 06/09/24 08:16 85 19 122/76 98 06/09/24 08:16 06/09/24 07:09 80 06/09/24 06:24 80 23 120/75 99 06/09/24 05:48 77 18 99 06/09/24 01:42 88 21 96 06/09/24 00:00 94 H 25 H 108/74 93 06/08/24 23:59 90 06/08/24 22:00 90 26 H 125/83 96 06/08/24 20:00 87 22 123/80 98 06/08/24 18:06 88 120/77 95 Pulse Ox O2 Del Method O2 Del Method O2 Flow Rate 06/09/24 17:40 Nasal Cannula 4 06/09/24 17:30 Oxymask 4 06/09/24 17:20 Oxymask 6 06/09/24 17:10 Oxymask 10 06/09/24 17:01 Oxymask 10 06/09/24 11:58 06/09/24 10:50 Room Air 06/09/24 08:16 Room Air 06/09/24 08:16 99 Room Air 06/09/24 07:09 06/09/24 06:24 CPAP 2 06/09/24 05:48 CPAP 2 06/09/24 01:42 06/09/24 00:00 Room Air 06/08/24 23:59 06/08/24 22:00 Room Air 06/08/24 20:00 06/08/24 18:06 Transfer of Care Handoff Completed per policy Notes Mental Status: alert / awake / arousable Patient Amnestic to Procedure: Yes Nausea / Vomiting: adequately controlled Pain: adequately controlled Airway Patency, RR, SpO2: stable & adequate BP & HR: stable & adequate Hydration State: stable & adequate Anesthetic Complications: no major complications apparent and Pt Satisfied with anesthetic care
[2024-06-09] MEDS ORDERED: NALOXONE HCL 0.4 MG/1 ML VIAL/CARP IV PRN (18:13)
[2024-06-09] MEDS ORDERED: LORazepam 0.5 MG TAB PO PRN (18:13)
[2024-06-09] MEDS ORDERED: METOCLOPRAMIDE HCL INJ 5 MG/ML 2 ML VIAL IV PRN (18:13)
[2024-06-09] MEDS ORDERED: FAMOTIDINE 20 MG TAB PO PRN (18:13)
[2024-06-09] MEDS ORDERED: PROMETHAZINE 12.5 MG/50.5 ML BAG IV PRN (18:13)
[2024-06-09] MEDS ORDERED: diphenhydrAMINE Capsule 25 MG CAP PO PRN (18:13)
[2024-06-09] MEDS ORDERED: ACETAMINOPHEN 1,000 MG/100 ML VIAL IV PRN (18:13)
[2024-06-09] MEDS ORDERED: DO NOT ADMINISTER PNEUMOCOCCAL VACCINE PRN (18:13)
[2024-06-09] MEDS ORDERED: LORazepam 0.5 MG in SYRINGE 0.25 ML IV PRN (18:13)
[2024-06-09] MEDS ORDERED: HYDROmorphone INJ 0.5 MG/0.5 ML SYR IV PRN (18:13)
[2024-06-09] MEDS ORDERED: SOD PHOSPHATE/SOD BIPHOSPHATE ENEMA 132 ML BTL PR PRN (18:13)
[2024-06-09] MEDS ORDERED: ONDANSETRON 4 MG OD TAB PO PRN (18:13)
[2024-06-09] MEDS ORDERED: HYDROmorphone INJ 1 MG/ML SYRINGE IV PRN (18:13)
[2024-06-09] MEDS ORDERED: bisacodyL 10 MG SUPP PR PRN (18:13)
[2024-06-09] MEDS ORDERED: traMADol HCL 50 MG TABLET PO PRN (18:13)
[2024-06-09] MEDS ORDERED: ALUMINUM/MAGNESIUM SUSP 30 ML UDC PO PRN (18:13)
[2024-06-09] MEDS ORDERED: hydrOXYzine HCl 25 MG TAB PO PRN (18:13)
[2024-06-09] MEDS ORDERED: DO NOT ADMINISTER FLU VACCINE PRN (18:13)
[2024-06-09] MEDS ORDERED: MAGNESIUM HYDROXIDE SUSP 30 ML UDC PO PRN (18:13)
[2024-06-09] MEDS ORDERED: Nursing to Pharmacy Communication SCH (19:15)
[2024-06-09] MEDS: dexAMETHasone 6 MG in SYRINGE 0 ML IV SCH (19:50)
[2024-06-09] MEDS: DOCUSATE SODIUM/SENNA 50/8.6MG TAB PO SCH (20:05)
[2024-06-09] MEDS: ceFAZolin 2000MG 2,000 MG/15 ML SYR IV SCH (23:15)
[2024-06-10] MEDS: POLYETHYLENE (MIRALAX) 17 GM PACK PO SCH (05:37)
[2024-06-10 06:54] LABS: Basophils # (auto) 0.01 K/uL (0.00-0.20); Basophils % (auto) 0.1 %; Hematocrit (blood only) 38.2 % (37.0-47.0); Hemoglobin 11.8 g/dl (12.0-16.0); Immature Granulocytes # (auto) 0.08 K/uL (0.01-0.20); Immature Granulocytes % (auto) 0.7 %; Lymphocytes # (auto) 0.83 K/uL (1.20-3.40); Lymphocytes % (auto) 7.8 %; Mean Corpuscular Hemoglobin 25.9 pg (25.0-34.0); Mean Corpuscular Hgb Conc 30.9 g/dL (32.0-36.0); Mean Corpuscular Volume 83.8 fL (80.0-100.0); Mean Platelet Volume 10.6 fL (9.4-12.4); Monocytes # (auto) 0.25 K/uL (0.11-0.59); Monocytes % (auto) 2.3 %; Neutrophils # (auto) 9.53 K/uL (1.40-6.50); Neutrophils % (auto) 89.1 %; Platelet Count 270 K/uL (130-400); RDW Coefficient of Variation 13.7 % (11.5-14.5); RDW Standard Deviation 42.2 fL (36.4-46.3); Red Blood Count 4.56 M/uL (4.20-5.40)
[2024-06-10 07:36] LABS: BUN Creatinine Ratio 23.8 (10-20); Calcium 8.8 mg/dl (8.6-10.3); Creatinine Clr Calc Pharmacy 51.4 ml/min; Est GFR (African American) 53.6 ml/min; Est GFR (Non-African American) 46.3 ml/min; Magnesium 1.9 mg/dl (1.7-2.4); Phosphorus 5.1 mg/dl (2.5-4.9); Potassium 4.7 mmol/L (3.5-5.1)
--- NOTE | 2024-06-10 09:21 | Orthopedic Progress Note ---
Date of Service June 10, 2024 Assessment & Plan (1) Cauda equina syndrome: Plan: PT today, monitor DARIN drain Admission and Anticipated Discharge Date Admission Date: June 08, 2024 Subjective leg symptoms improved. Ambulating well. Physical Exam Physical Exam: neuro intact. sitting at side of bed Results & Data Vital Signs (Past 12 Hours) Vital Signs Temp Pulse Pulse Pulse Resp BP Pulse Ox 06/10/24 08:05 37.0 C 84 20 132/70 97 06/10/24 04:14 36.9 C 81 18 121/71 98 06/10/24 03:43 90 17 97 06/09/24 23:46 36.4 C L 82 18 123/68 97 06/09/24 23:45 06/09/24 23:00 86 O2 Del Method O2 Flow Rate 06/10/24 08:05 Room Air 06/10/24 04:14 CPAP 3 06/10/24 03:43 2 06/09/24 23:46 Nasal Cannula 3 06/09/24 23:45 Nasal Cannula, CPAP 3 06/09/24 23:00
--- NOTE | 2024-06-10 15:02 | Hospitalist Progress Note ---
Date of Service June 10, 2024 Assessment & Plan (1) Cauda equina syndrome due to spinal stenosis: Plan: Operation Date: 06/09/24 07:00 Actual Procedures #1 lumbar decompression bilaterally facetectomies and foraminotomies L4-L5. #2 posterior spinal fusion L4-L5. #3 placement posterior instrumentation L4-L5. #4 interbody fusion L4-L5 #5 placement of Spira 11 x 26 mm x 2 at L4-L5. #6 placement locally harvested morselized autograft in the posterior gutters. #7 placement infuse collagen sponge combined with Koros in the posterior gutters and os design interbody space. #8 placement of versa wrap on the exposed dura. (2) CKD (chronic kidney disease): (3) Diabetes mellitus type 2 with complications: (4) Hypothyroid: Plan Patient status post spinal surgery for cauda equina syndrome, patient has significantly improved Continue therapies Continue postoperative care as recommended by surgeon Glucose elevated due to steroids Continue insulin supplementation Care management to pursue placement for acute rehabilitation Admission and Anticipated Discharge Date Admission Date: June 08, 2024 Subjective Patient noticed significant improvement in her lower extremity paresthesias and weakness. Pain is well-controlled. Physical Exam Physical Exam: Constitutional: Alert HEENT: Mucous membranes moist. Lungs: Clear to auscultation, decreased, no wheezes rales or rhonchi CV: S1-S2, regular Abdomen: Soft, nontender, nondistended Extremities: No significant edema Musculoskeletal: Surgical dressing dry and intact over lumbar spine incision, DARIN drain with serosanguineous fluid Neuro: Paresthesias and radiculopathy improved in lower extremity Psych: Cooperative, normal mood Results & Data Results & Data Vital Signs (Past 12 Hours) Vital Signs Temp Pulse Pulse Pulse Resp BP Pulse Ox 06/10/24 14:57 36.4 C L 79 16 116/71 99 06/10/24 12:13 37.2 C 84 16 127/76 97 06/10/24 08:05 37.0 C 84 20 132/70 97 06/10/24 04:14 36.9 C 81 18 121/71 98 06/10/24 03:43 90 17 97 O2 Del Method O2 Flow Rate 06/10/24 14:57 Room Air 06/10/24 12:13 Room Air 06/10/24 08:05 Room Air 06/10/24 04:14 CPAP 3 06/10/24 03:43 2 Diagnostic Findings Reviewed imaging, laboratory and diagnostic studies. Pertinent findings as below. Creatinine 1.2 Glucose 340 Magnesium 1.9 Phosphorus 5.1
[2024-06-10] MEDS: ACETAMINOPHEN 500 MG TAB PO PRN (16:54)
[2024-06-10] MEDS: LANTUS PER UNIT CHARGE SQ SCH (21:08)
[2024-06-10] MEDS: oxyCODONE HCL IR 5 MG TAB (IMMEDIATE RELEASE) PO PRN (21:09)
[2024-06-11 07:08] LABS: Calcium 8.7 mg/dl (8.6-10.3); Potassium 4.3 mmol/L (3.5-5.1)
[2024-06-11 07:14] LABS: Creatinine Clr Calc Pharmacy 57.4 ml/min; Est GFR (African American) 61.2 ml/min; Est GFR (Non-African American) 52.8 ml/min
--- NOTE | 2024-06-11 08:54 | Orthopedic Progress Note ---
Date of Service June 11, 2024 Assessment & Plan (1) Cauda equina syndrome: Plan: At this time we will continue physical therapy monitor DARIN output anticipate discharge possibly home tomorrow. Admission and Anticipated Discharge Date Admission Date: June 08, 2024 Subjective Back pain is controlled leg symptoms improved Physical Exam Physical Exam: Patient is sitting up at the bedside. She is comfortable. Distracted testing. Results & Data Vital Signs (Past 12 Hours) Vital Signs Temp Pulse Pulse Resp BP Pulse Ox Pulse Ox 06/11/24 08:21 36.9 C 76 16 129/78 100 06/11/24 08:00 99 06/11/24 03:57 85 20 99 06/10/24 22:09 30 H 06/10/24 21:48 36.4 C L 83 18 111/70 98 06/10/24 21:15 O2 Del Method O2 Del Method O2 Flow Rate 06/11/24 08:21 Room Air 06/11/24 08:00 Room Air 06/11/24 03:57 2 06/10/24 22:09 2 06/10/24 21:48 Room Air 06/10/24 21:15 CPAP
--- NOTE | 2024-06-11 10:19 | Hospitalist Progress Note ---
Date of Service June 11, 2024 Assessment & Plan (1) Cauda equina syndrome due to spinal stenosis: Plan: Operation Date: 06/09/24 07:00 Actual Procedures #1 lumbar decompression bilaterally facetectomies and foraminotomies L4-L5. #2 posterior spinal fusion L4-L5. #3 placement posterior instrumentation L4-L5. #4 interbody fusion L4-L5 #5 placement of Spira 11 x 26 mm x 2 at L4-L5. #6 placement locally harvested morselized autograft in the posterior gutters. #7 placement infuse collagen sponge combined with Koros in the posterior gutters and os design interbody space. #8 placement of versa wrap on the exposed dura. (2) CKD (chronic kidney disease): (3) Diabetes mellitus type 2 with complications: (4) Hypothyroid: Plan Continue with postoperative care as directed by spine surgeon Continue therapies Increase Lantus dose and continue short acting insulin with meals Continue current pain control Communication with spine surgery, anticipate removing DARIN drain tomorrow and being able to be discharged home with outpatient therapies Admission and Anticipated Discharge Date Admission Date: June 08, 2024 Subjective No acute issues overnight. Pain is controlled. Increasing abilities to do activity Physical Exam Physical Exam: Constitutional: Alert, sitting on edge of the bed eating breakfast HEENT: Mucous membranes moist. Lungs: Clear to auscultation, decreased, no wheezes rales or rhonchi CV: S1-S2, regular Abdomen: Soft, nontender, nondistended Extremities: No significant edema Neuro: Moving bilateral lower extremities Musculoskeletal: Lumbar incision dressing clean and dry, DARIN drain in place with serosanguineous fluid Psych: Cooperative, normal mood Results & Data Results & Data Vital Signs (Past 12 Hours) Vital Signs Temp Pulse Pulse Resp BP Pulse Ox Pulse Ox 06/11/24 08:21 36.9 C 76 16 129/78 100 06/11/24 08:00 99 06/11/24 03:57 85 20 99 O2 Del Method O2 Del Method O2 Flow Rate 06/11/24 08:21 Room Air 06/11/24 08:00 Room Air 06/11/24 03:57 2 Diagnostic Findings Reviewed imaging, laboratory and diagnostic studies. Pertinent findings as below. Glucose 177, improved
[2024-06-11] MEDS: LANTUS PER UNIT CHARGE SQ SCH (21:54)
[2024-06-12 07:15] VITALS: RESP 16
--- NOTE | 2024-06-12 11:20 | Orthopedic Progress Note ---
Date of Service June 12, 2024 Assessment & Plan (1) Cauda equina syndrome: Plan: This time patient is progressed appropriately. Will just discharge her home. She will follow-up in the office in the next 2 weeks. Admission and Anticipated Discharge Date Admission Date: June 08, 2024 Subjective back pain controlled leg pain improved. She feels he is ambulating much stronger. Physical Exam Physical Exam: Patient sitting at bedside. Skin strength testing. Dressing is changed and her incision is clean dry and intact. Results & Data Vital Signs (Past 12 Hours) Vital Signs Temp Pulse Pulse Resp BP Pulse Ox O2 Del Method 06/12/24 08:00 06/12/24 07:14 36.7 C 86 16 110/67 96 Room Air 06/12/24 03:35 84 21 94 O2 Del Method 06/12/24 08:00 Room Air 06/12/24 07:14 06/12/24 03:35
--- NOTE | 2024-06-12 11:43 | Discharge Summary ---
Discharge Summary Date of Service June 12, 2024 Principal Dx & Hospital Course #1 = Principal Diagnosis (1) Cauda equina syndrome due to spinal stenosis: Operation Date: 06/09/24 07:00 Actual Procedures #1 lumbar decompression bilaterally facetectomies and foraminotomies L4-L5. #2 posterior spinal fusion L4-L5. #3 placement posterior instrumentation L4-L5. #4 interbody fusion L4-L5 #5 placement of Spira 11 x 26 mm x 2 at L4-L5. #6 placement locally harvested morselized autograft in the posterior gutters. #7 placement infuse collagen sponge combined with Koros in the posterior gutters and os design interbody space. #8 placement of versa wrap on the exposed dura. (2) CKD (chronic kidney disease): (3) Diabetes mellitus type 2 with complications: (4) Hypothyroid: Plan Patient was admitted to the hospital. Started on multimodal pain control. Spine surgery consultation was obtained. Patient's MRI was evaluated by spine surgery and she was taken to the operating room. Patient underwent surgical intervention as mentioned above. Her postoperative course was uneventful. She did have some significant hyperglycemia due to steroids used to treat inflammatory patient and pain. This was managed with insulin. Upon discharge she will resume her usual diabetes treatments. Her postoperative course she rapidly improved. She was able to up be up and ambulate. On the day of discharge her DARIN drain was removed. Her surgical dressing was dry and intact. She can be discharged home to outpatient follow-up with her spine surgeon and her outpatient providers. Notes For Next Care Provider May need additional interventions for diabetes management, hemoglobin A1c 10% Consider outpatient physical therapy and Occupational Therapy Follow-up with spine surgery as coordinated through their office Medication Changes From Visit Pain medications added Admission HPI Per Admitting Provider 59-year-old female with past medical history significant for type 2 diabetes, hyperlipidemia, hypothyroidism, asthma mild persistent, mucous retention cyst of maxillary sinus, obstructive sleep apnea on CPAP, hypertension, GERD, CKD stage III, gout, restless leg syndrome, open angle glaucoma comes because of ongoing waist down numbness and bilateral lower extremity weakness for about 10 days. Patient states since last 10 days waist down she is feeling very numb and also weakness in the lower extremities constantly . She is ambulating okay. Bowel movements ,she does not know they are coming and most of the times she was on the commode when she had a bowel movement but does not have any sensation of the movement. She is in diapers. Bladder movements ,she has urge to go but sometimes she has run to the bathroom. Because of ongoing symptoms she went to PCP and she was sent emergently to the ER for workup for cauda equina syndrome. CT scans were done which were unremarkable. MRI scans are pending. Patient is alert and oriented and can give her history. Denies any headache. No dizziness. No blurred visions or double visions. No earache. No runny nose. No sore throat. Has cough since COVID 3 years ago. Appetite is okay. No difficulty swallowing. No chest pains. No shortness of breath. No nausea. No abdominal pains. No fevers. No known injuries. Hemodynamics are okay. No recent weight gain or weight loss. No night sweats. Past medical history. As mentioned above. Past surgical history. Breast reduction. EGD. Cyst removed from her back. Partial hysterectomy. PEG tube while hospitalized with ROM in 2020. Social history. . No smoking. No alcohol use. No drug use. Family history. Mother has diabetes, CHF, hypertension, renal failure. Maternal grandmother had diabetes Admission Exam Per Admitting Provider See H&P Discharge Exam Constitutional: Alert HEENT: Mucous membranes moist. Lungs: Clear to auscultation, decreased, no wheezes rales or rhonchi CV: S1-S2, regular Abdomen: Soft, nontender, nondistended Extremities: No significant edema Neuro: Paresthesias lower extremity significantly improved, strength lower extremity significantly improved, bladder function back to baseline Psych: Cooperative, normal mood Updated Medication List Medication Instructions Recorded Confirmed Type allopurinol 100 mg tablet 100 mg PO DAILY 12/28/20 06/08/24 History aspirin 81 mg tablet,delayed 81 mg PO DAILY 12/28/20 06/08/24 History release atorvastatin 20 mg tablet 20 mg PO QAM 12/28/20 06/08/24 History dulaglutide 0.75 mg/0.5 mL 1.5 mg subcut WK 12/28/20 06/08/24 History subcutaneous pen injector (Trulicity) empagliflozin 25 mg tablet 25 mg PO DAILY 12/28/20 06/08/24 History (Jardiance) fenofibrate micronized 200 mg 67 mg PO DAILY 12/28/20 06/08/24 History capsule levothyroxine 25 mcg tablet 25 mcg PO QAM 12/28/20 06/08/24 History metformin 1,000 mg tablet 1,000 mg PO BIDM 12/28/20 06/08/24 History montelukast 10 mg tablet 10 mg PO DAILY 12/28/20 06/08/24 History triamcinolone acetonide 0.1 % 1 applic topical BID PRN Other 12/28/20 06/08/24 History topical cream fluticasone propionate 230 2 puff inhalation BID 06/08/24 06/08/24 History mcg-salmeterol 21 mcg/actuation HFA inhaler (Advair HFA) levalbuterol tartrate 45 1 puff inhalation BID PRN Other 06/08/24 06/08/24 History mcg/actuation aerosol inhaler levocetirizine 5 mg tablet 5 mg PO DAILY 06/08/24 06/08/24 History metoprolol succinate 25 mg 25 mg PO DAILY 06/08/24 06/08/24 History tablet,extended release 24 hr omeprazole 20 mg capsule,delayed 20 mg PO BID 06/08/24 06/08/24 History release topiramate 50 mg tablet 50 mg PO BID 06/08/24 06/08/24 History oxycodone 5 mg tablet 5 mg PO Q6H PRN pain #30 tabs 06/12/24 Rx tramadol 50 mg tablet 50 mg PO Q6H PRN pain, moderate 06/12/24 Rx #30 tabs Hospital Stay Data Consultations 06/08/24 22:37 ED Decision to Admit Stat 06/09/24 08:00 Consult Orthopedic Spine Surgery Routine Procedures Performed Operation Date: 06/09/24 07:00 Actual Procedures p L4-L5 Decompression Fusion, Interbody Fusion at L4-L5, Bone Morphogenetic Protein, Spinal Cord Monitoring - Ian Webb DO Diagnostic Imagining Performed Reviewed imaging, laboratory and diagnostic studies. Pertinent findings as below. Hemoglobin A1c 10% TSH 2.8 CBC and BMP stable Glucoses improved control with Lantus. Preoperative MRI report/impression: 1. Moderate disc degeneration at L1-L2, L2-3, L3-4 and L4-5 with annular disc bulging causing a mild subarticular recess stenosis and severe subarticular recess stenosis at L4-5 with impingement of the transiting L5 nerve roots. 2. There is a critical spinal canal stenosis at L4-5 and mild stenosis at L3-4. 3. There is mild bilateral L3-4, and mild right L4-5 neural foraminal stenosis without evidence of neural impingement. 4. There is minimal to moderate facet arthropathy with mild synovitis. 5. Mild bilateral sacroiliac joint arthropathy. 6. No evidence of fracture, infection, tumor or arachnoiditis. 06/08/24 16:03 CT lumbar spine wo con Stat CT thoracic spine wo con Stat 06/08/24 18:41 MR lumbar spine wo/w con Stat MR thoracic spine wo/w con Stat 06/09/24 [place] lumbar spine 2-3V Routine Pending Results Patient Have Any Pending Studies at Discharge: No Discharge Instructions Given to Patient (Per Discharging Provider) ACTIVITY RECOMMENDATIONS: SELF CARE INSTRUCTIONS AFTER THORACIC/LUMBAR FUSIONS 1. You may walk to your tolerance. It is good exercise for your legs and back. Expect some back and intermittent leg aches and pains. 2. You may perform "counter-top" level activities (make a sandwich, nuris with a project, etc.). 3. No bending or lifting of more than 10 pounds or back twisting of any nature (roll like a log when turning in bed). 4. You may ride in a car for 20-30 minutes at a time. No driving until after your first visit with your doctor. 5. Frequent changes of position and restricting sitting to 30 minutes at a time will help limit the amount of back spasms and stiffness you may experience. 6. You may discontinue the use of ambulatory aids (cane, crutches, etc.) once your strength and confidence allow. 7. You may cnc field service engineer the shower and let water strike your incision when you arrive home at least once daily. Do not take a tub bath, sit in a hot tub or go into a swimming pool until after your first recheck in the office. SPECIAL CARE INSTRUCTIONS: VERY IMPORTANT TO READ AND REVIEW A. Your surgical incision has been closed with a cosmetic suture under the skin that will dissolve in about 6 weeks. In 14 days, you can use a pair of clean scissors and cut the suture that is left outside of the skin at the ends of your incision. 1. The small skin tapes can be removed 7 days after surgery if they have not fallen off by that point. 2. You may keep the wound open to air as much as possible to promote healing after post-op day number 5 unless told otherwise by your doctor. 3. If you think the wound looks like it is becoming infected (redness or worsening drainage) and/or you are experiencing fever, chill or worsening back pain and muscle spasms, contact the office so that we may evaluate you as soon as possible. B. Complications are uncommon, but please contact us if you have any signs or symptoms of: 1. wound infection (fever higher than 102.5 degrees F, redness, separation of wound, drainage, or increasing pain from the incision) 2. blood clots in legs (pain, swelling, redness and warmth in legs) 3. urinary tract infection (fever higher than 102.5 degrees F, burning upon urination or increased frequency of urination) 4. nerve problems (inability to walk on your toes or heels, numbness, loss of bowel or bladder control) 5. any other symptoms that concern you C. Please call the office at if you have any concerns or questions about your operation or recovery. D. No smoking! Smoking drastically decreases the chance of a solid fusion. E. Do not take any anti-inflammatory medications (Indocin, Advil, Motrin, Aspirin, Naprosyn, etc.) as these may inhibit the chance of a solid fusion. Tylenol is okay to take for pain. MANAGING PAIN AFTER SPINAL SURGERY 1. Narcotic medication is intended for short-term use and will be provided for surgical pain. Surgical pain usually lasts for a period of 4-6 weeks. Narcotic medication includes Percocet, Vicodin, Darvocet, Tylenol #3 or Lortab. 2. Longer-term pain is more appropriately treated with non-narcotic medication such as Tylenol ES. 3. Muscle spasm is not appropriately treated with narcotics. Muscle relaxers such as Soma, Flexeril or Skelaxin can be used along with Tylenol ES. 4. Remember that we all live with some "aches and pains". This is not unusual or uncommon after an injury or as we get older. a. Back pain is expected and may include muscle spasms for 4 to 6 weeks after surgery. The pain should gradually improve. If the pain worsens for no apparent reason, please contact the office. b. Intermittent leg pain may also be experienced and should not be concerned about unless it worsens for no apparent reason. If so, please contact the office. 5. We will provide appropriate medication within the normal guidelines of their prescribed use. We will also be very cautious and aware of potential abuse and extended duration of patients' medication needs. a. Pain medications are for your comfort and to assist with sleep and rest so that the tissue can heal. They are not provided in order to return to normal activity and should not be used through the day. To do so or worsening pain at night can result from ongoing tissue damage and development of tolerance to the prescribed medicine. 6. Please allow 2-3 days to process refills. Prescriptions will not be mailed but must be picked up at the office. FOLLOW UP VISIT: Keep your scheduled follow-up appointment. Any questions, please call the office at . Total Time Total Time Spent Total Time Spent (In Minutes): 39
[2024-06-12 15:49] VITALS: BP 128/77; PULSE 85; TEMP 98.2; O2SAT 97
== END 2024-06-12 17:42 | disposition home or self-care (01) | DRG 454 ==
LOC: ED 15:01 → EDINP 23:27 → OR 06-09 14:15 → EDINP 06-09 14:31 → 4W 06-09 16:59 → 3W 06-09 23:45 → 3N 06-11 18:22